=== PATIENT | male | born 1945 | race African-American/Black ===

== ENCOUNTER 2016-07-12 11:20 | Emergency (ER) | payer OTHER ==
[2016-07-12 11:29] VITALS: PULSE 96; BMI 31.8
[2016-07-12] MEDS ORDERED: predniSONE 20 MG TABLET (UD) PO ONE ×2 (11:46→13:48)
--- NOTE | 2016-07-12 11:54 | PDOC ---
History of Present Illness - General Chief Complaint: Shortness of Breath Stated Complaint: SOB Time Seen by Provider: 07/12/16 11:40 History Source: Patient Exam Limitations: No Limitations - History of Present Illness Initial Comments: CHIEF COMPLAINT: 70 y/o afebrile male with PMH HTN, CHF, COPD, DM c/o SOB this morning. HISTORY OF PRESENT ILLNESS: The patient states he woke up this morning and couldn't breath. He states this has happened before and is usually a COPD exacerbation. He has a mostly dry cough. He denies f/c, n/v/d, CP, abd pain, back pain, hematuria, dysuria, lower extremity swelling. He is on home oxygen. Vital signs on arrival are notable for O2 sat of 95% on RA REVIEW OF SYSTEMS: GENERAL/CONSTITUTIONAL: No fever/chills. No weakness. No weight change. HEAD, EYES, EARS, NOSE AND THROAT: No change in vision. No ear pain or discharge. No sore throat. CARDIOVASCULAR: +SOB. No chest pain. RESPIRATORY: +cough. No wheezing, or hemoptysis. GASTROINTESTINAL: No abd pain, nausea, vomiting, diarrhea. GENITOURINARY: No dysuria, frequency, or change in urination. MUSCULOSKELETAL: No joint or muscle swelling or pain. No neck or back pain. SKIN: No rash or easy bruising. NEUROLOGIC: No headache, vertigo, loss of consciousness, or loss of sensation. PHYSICAL EXAM: GENERAL: The patient is awake, alert, and fully oriented, in no acute distress. He is well appearing, ambulatory and can speak in full sentences. He has a dry cough worsened with deep inspiration. HEAD: Normal with no signs of trauma. ENT: Pupils equal, round and reactive to light, extraocular movements intact, sclera anicteric, conjunctiva clear. Neck supple. LUNGS: Diffuse expiratory wheezing. Normal excursion. No respiratory distress or use of accessory muscles. CV: RRR, S1/S2, no MRG. Cap refill < 2 sec. ABDOMEN: Soft, non-distended, non-tender even to deep palpation, no hepatomegaly or splenomegaly, no masses. EXTREMITIES: Normal range of motion, no edema. NEUROLOGICAL: Normal speech, normal gait. CN II-XII grossly intact. PSYCH: Normal mood, normal affect. SKIN: Warm, dry, normal turgor, no rashes or lesions noted. Past History - Past Medical History Allergies/Adverse Reactions: Allergies Allergy/AdvReac Type Severity Reaction Status Date / Time ibuprofen [From Advil] Allergy Unknown Vomiting Verified 07/12/16 11:25 Home Medications: Ambulatory Orders Multivitamin/Iron/Folic Acid [Centrum Complete Multivit Tab] 1 each PO DAILY 12/26 Furosemide [Lasix -] 40 mg PO DAILY #0 tablet 04/18/13 Montelukast Na [Singulair -] 10 mg PO HS #0 tablet 04/18/13 Aspirin [ASA -] 81 mg PO DAILY #0 tab.chew 07/31/14 Fluticasone Prop 0.05% Nasal [Flonase -] 1 - 2 spray NS BID 12/24/15 Albuterol Sulfate Inhaler - [Ventolin HFA Inhaler -] 1 - 2 inh PO Q4H PRN #1 inhaler 01/11/16 Albuterol 0.083% Nebulizer Jacki [Ventolin 0.083% Nebulizer Soln -] 1 neb NEB Q6H #30 vial 02/27/16 Aclidinium [place] [Tudorza -] 1 puff IH BID inhaler 03/18/16 Budesonide/Formeterol Fumarate [SYMBICORT 80/4.5mcg -] 2 puff IH BID inhaler Cefuroxime Axetil [Ceftin -] 500 mg PO BID tablet 03/18/16 Heparin - 5,000 unit SQ BID vial 03/18/16 Insulin Sliding Scale [Novolog Vial Sliding Scale -] 1 vial SQ ACHS units 03/18 Lisinopril [Prinivil] 2.5 mg PO DAILY tablet 03/18/16 Prednisone [Deltasone -] 20 mg PO BID tablet 03/19/16 Prednisone [Deltasone -] 40 mg PO DAILY #8 tablet 07/12/16 Anemia: No Asthma: Yes Cardiac Disorders: Yes (CHF) CVA: No COPD: Yes CHF: Yes Dementia: No Diabetes: Yes GI Disorders: No Disorders: Yes (ENLARGED PROSTATE) HTN: Yes Hypercholesterolemia: No Liver Disease: No Seizures: No Thyroid Disease: No - Surgical History Abdominal Surgery: No Appendectomy: No Cardiac Surgery: No Cholecystectomy: No - Immunization History Immunization Up to Date: Yes - Psycho/Social/Smoking Cessation Hx Anxiety: No Suicidal Ideation: No Smoking Status: No Smoking History: Former smoker Have you smoked in the past 12 months: No Number of Cigarettes Smoked Daily: 0 If you are a former smoker, when did you quit?: 2001 Information on smoking cessation initiated: No 'Breaking Loose' booklet given: 01/08/12 Hx Alcohol Use: No Drug/Substance Use Hx: No Substance Use Type: None Hx Substance Use Treatment: No Respiratory Specific PMHX - Complaint Specific PMHX Bronchitis: Yes Pneumonia: Yes *Physical Exam - Vital Signs Last Vital Signs Temp Pulse Resp BP Pulse Ox 97.6 F 96 H 18 145/90 95 07/12/16 11:26 07/12/16 11:26 07/12/16 11:26 07/12/16 11:26 07/12/16 11:26 Medical Decision Making - Medical Decision Making A/P: 70 y/o male with COPD exacerbation. Plan is as follows: 1. Duoneb x 3 2. Prednisone 3. CXR CXR IMPRESSION: No acute abnormality is seen. The patient states he feels much better. Repeat lung exam reveals much improved with only slight expiratory wheezing on the left side. Vital signs are improved. The patient does have a nebulizer at home which he states he sometimes uses 3 times per day. I suggested he use it every 4 hours. Will d/c to home with rx for prednisone and suggested he f/u with his [employer] Consultant as soon as possible. Instructed him to return to the ER with any worsening or concerning symptoms. The patient verbalizes understanding of all instructions, has no further questions and is awaiting discharge. *DC/Admit/Observation/Transfer Diagnosis at time of Disposition: COPD exacerbation - Discharge Dispostion Disposition: HOME Condition at time of disposition: Improved - Referrals Referrals: David Gaytan MD [Primary Care Provider] - Call tomorrow - Patient Instructions Printed Discharge Instructions: DI for Chronic Obstructive Pulmonary Disease Additional Instructions: Discharge Instructions: -Use your albuterol nebulizer once every 4 hours until symptoms improve. -Take Prescription prednisone as prescribed -Follow up with Dr. Gaytan and your [employer] Consultant this week -Return to the ER with any worsening or concerning symptoms
[2016-07-12] MEDS ORDERED: predniSONE 20 MG TABLET (UD) ONE ×2 (12:04→13:45)
[2016-07-12] MEDS ORDERED: ALBUTEROL SO4 2.5/IPRATROPIUM 0.5 INH SOL 3 ML VIAL.NEB. NEB ONE (12:04)
[2016-07-12] MEDS: ALBUTEROL SO4 2.5/IPRATROPIUM 0.5 INH SOL 3 ML VIAL.NEB. NEB SCH (12:12)
[2016-07-12 13:49] VITALS: BP 133/77; TEMP 98.3
== END 2016-07-12 13:52 | disposition home or self-care (01) ==
LOC: JER 11:20
PROC: 3E0F7GC Introduction of Other Therapeutic Substance into Respiratory Tract, Via Natural or Artificial Opening (ICD-10-PCS; principal; 2016-07-12)
DX: J44.1 Chronic obstructive pulmonary disease with (acute) exacerbation (principal); J45.909 Unspecified asthma, uncomplicated; I50.9 Heart failure, unspecified; I10 Essential (primary) hypertension; E11.9 Type 2 diabetes mellitus without complications; Z79.4 Long term (current) use of insulin; N40.0 Benign prostatic hyperplasia without lower urinary tract symptoms
CPT/HCPCS: 71020-TC; 94640; 99283-25

== ENCOUNTER 2016-07-24 12:46 | Emergency (ER) | payer OTHER ==
[2016-07-24 13:01] VITALS: BMI 31.3
[2016-07-24] MEDS ORDERED: ALBUTEROL SO4 2.5/IPRATROPIUM 0.5 INH SOL 3 ML VIAL.NEB. NEB ONE (13:31)
--- NOTE | 2016-07-24 13:38 | PDOC ---
History of Present Illness - History of Present Illness Initial Comments: 07/24/16 13:46 The patient is a 70 year old male with significant history of hypertension, DM, CHF, and asthma/COPD (admitted to the hospital with BIAPAP, never intubated) who presents to the ED complaining of 2 days of progressively worsening shortness of breath and productive cough with white sputum. He states he had been using his Albuterol pump at home without noticeable relief, prompting him to come to the ED for further evaluation. The patient was seen in the ED for a COPD exacerbation 2 weeks ago and was started on a Prednisone taper. He denies any fever or chills. He denies chest pain or palpitations. He denies nausea, vomiting, or diaphoresis. <Mary Castro - Last Filed: 07/24/16 16:27> - General History Source: Patient, Old Records Exam Limitations: No Limitations <Jacquelyn Sue - Last Filed: 07/24/16 16:47> - General Chief Complaint: Shortness of Breath Stated Complaint: SOB Time Seen by Provider: 07/24/16 13:11 Past History <Mary Castro - Last Filed: 07/24/16 16:27> - Past Medical History Anemia: No Asthma: Yes Cardiac Disorders: Yes (CHF) CVA: No COPD: Yes CHF: Yes Dementia: No Diabetes: Yes GI Disorders: No Disorders: Yes (ENLARGED PROSTATE) HTN: Yes Hypercholesterolemia: No Liver Disease: No Seizures: No Thyroid Disease: No - Surgical History Abdominal Surgery: No Appendectomy: No Cardiac Surgery: No Cholecystectomy: No - Immunization History Immunization Up to Date: Yes - Psycho/Social/Smoking Cessation Hx Anxiety: No Suicidal Ideation: No Smoking Status: No Smoking History: Former smoker Have you smoked in the past 12 months: No Number of Cigarettes Smoked Daily: 0 If you are a former smoker, when did you quit?: 2001 Information on smoking cessation initiated: No 'Breaking Loose' booklet given: 01/08/12 Hx Alcohol Use: No Drug/Substance Use Hx: No Substance Use Type: None Hx Substance Use Treatment: No <Jacquelyn Sue - Last Filed: 07/24/16 16:47> - Past Medical History Allergies/Adverse Reactions: Allergies Allergy/AdvReac Type Severity Reaction Status Date / Time ibuprofen [From Advil] Allergy Unknown Vomiting Verified 07/12/16 11:25 Home Medications: Ambulatory Orders Multivitamin/Iron/Folic Acid [Centrum Complete Multivit Tab] 1 each PO DAILY 12/26 Furosemide [Lasix -] 40 mg PO DAILY #0 tablet 04/18/13 Montelukast Na [Singulair -] 10 mg PO HS #0 tablet 04/18/13 Aspirin [ASA -] 81 mg PO DAILY #0 tab.chew 07/31/14 Fluticasone Prop 0.05% Nasal [Flonase -] 1 - 2 spray NS BID 12/24/15 Albuterol Sulfate Inhaler - [Ventolin HFA Inhaler -] 1 - 2 inh PO Q4H PRN #1 inhaler 01/11/16 Albuterol 0.083% Nebulizer Jacki [Ventolin 0.083% Nebulizer Soln -] 1 neb NEB Q6H #30 vial 02/27/16 Aclidinium [place] [Tudorza -] 1 puff IH BID inhaler 03/18/16 Budesonide/Formeterol Fumarate [SYMBICORT 80/4.5mcg -] 2 puff IH BID inhaler Lisinopril [Prinivil] 2.5 mg PO DAILY tablet 03/18/16 Albuterol 0.083% Nebulizer Jacki [Ventolin 0.083% Nebulizer Soln -] 1 neb NEB Q4H PRN #30 vial 07/24/16 Prednisone [Deltasone -] 40 mg PO UTDICT #8 tablet 07/24/16 Review of Systems - Review of Systems Able to Perform ROS?: Yes Comments:: 07/24/16 13:52 GENERAL/CONSTITUTIONAL: No fever or chills. No weakness. HEAD, EYES, EARS, NOSE AND THROAT: No change in vision. No ear pain or discharge. No sore throat. CARDIOVASCULAR: No chest pain, palpitations, or lightheadedness. RESPIRATORY: +Shortness of breath, productive cough with yellow sputum. No cough , wheezing, or hemoptysis. GASTROINTESTINAL: No nausea, vomiting, diarrhea or constipation. GENITOURINARY: No dysuria, frequency, or change in urination. MUSCULOSKELETAL: No joint or muscle swelling or pain. No neck or back pain. SKIN: No rash NEUROLOGIC: No headache, vertigo, loss of consciousness, or change in strength/ sensation. ENDOCRINE: No increased thirst. No abnormal weight change. HEMATOLOGIC/LYMPHATIC: No anemia, easy bleeding, or history of blood clots. ALLERGIC/IMMUNOLOGIC: No hives or skin allergy. <Mary Castro - Last Filed: 07/24/16 16:27> *Physical Exam - Vital Signs Last Vital Signs Temp Pulse Resp BP Pulse Ox 98.3 F 63 20 127/90 93 L 07/24/16 12:57 07/24/16 12:57 07/24/16 12:57 07/24/16 12:57 07/24/16 12:57 - Physical Exam Comments: 07/24/16 13:53 GENERAL: Awake, alert, and fully oriented, in no acute distress HEAD: No signs of trauma EYES: PERRLA, EOMI, sclera anicteric, conjunctiva clear ENT: Auricles normal inspection, hearing grossly normal, nares patent, oropharynx clear without exudates. Moist mucosa NECK: Normal ROM, supple, no lymphadenopathy, JVD, or masses LUNGS: Diffuse bilateral expiratory wheezes with fair entry. HEART: Regular rate and rhythm, normal S1 and S2, no murmurs, rubs or gallops ABDOMEN: Soft, nontender, normoactive bowel sounds. No guarding, no rebound. No masses EXTREMITIES: 1+ bipedal edema. Normal range of motion. No clubbing or cyanosis. No cords, erythema, or tenderness NEUROLOGICAL: Cranial nerves II through XII grossly intact. Normal speech, normal gait SKIN: Warm, Dry, normal turgor, no rashes or lesions noted. <Mary Castro - Last Filed: 07/24/16 16:27> - Vital Signs Last Vital Signs Temp Pulse Resp BP Pulse Ox 98.3 F 63 20 127/90 93 L 07/24/16 12:57 07/24/16 12:57 07/24/16 12:57 07/24/16 12:57 07/24/16 12:57 <Jacquelyn Sue - Last Filed: 07/24/16 16:47> ED Treatment Course - LABORATORY CBC & Chemistry Diagram: 07/24/16 13:53 07/24/16 13:53 <Mary Castro - Last Filed: 07/24/16 16:27> - LABORATORY CBC & Chemistry Diagram: 07/24/16 13:53 07/24/16 13:53 <Jacquelyn Sue - Last Filed: 07/24/16 16:47> Medical Decision Making - Medical Decision Making 07/24/16 14:22 70-year-old male with history of hypertension, diabetes, asthma/COPD who presents to the emergency department with 2 day history of shortness of breath unrelieved with his albuterol MDI; he also has a cough productive with yellow sputum. Differential diagnosis includes but is not limited to: Pneumonia, COPD exacerbation, influenza, bronchitis, CHF exacerbation, anemia, toxic/metabolic derangement. Plan: 1. EKG 2. Chest x-ray 3. Labs 4. Influenza PCR 5. DuoNeb treatments 6. Steroids 7. Observe and reevaluate 07/24/16 16:44 Addendum: The patient received albuterol neb tx and Prednisone with improvement of Sx and wheezing. At the time of discharge he was re-evaluated and his oxygen saturation was 100% on RA and he had scant wheezes at the bilateral bases. His labs were reviewed and are noted in the EMR. Influenza PCR was negative. EKG and CXR were negative. Will discharge home with Rx for prednisone 40mg daily x 4 days and refill for albuterol neb solution. I have instructed the patient to follow-up with his PCP within 3-5 days and to return to the ED if his Sx persist, worsen or new Sx arise. <Jacquelyn Sue - Last Filed: 07/24/16 16:47> *DC/Admit/Observation/Transfer - Attestations Scribe Attestion: 07/24/16 14:04 Documentation prepared by Mary Castro, acting as medical chemist for Jacquelyn Sue MD. <Mary Castro - Last Filed: 07/24/16 16:27> - Discharge Dispostion Admit: No - Attestations Physician Attestion: 07/24/16 14:23 I, Dr. Jacquelyn Sue, attest that the scribes documentation that appears above has been prepared under my direction and personally reviewed by me in its entirety. I confirmed that the note above accurately reflects all work, treatment, procedures, and medical decision-making performed by me. <Jacquelyn Sue - Last Filed: 07/24/16 16:47> Diagnosis at time of Disposition: Shortness of breath, COPD exacerbation - Discharge Dispostion Disposition: HOME Condition at time of disposition: Stable - Prescriptions Prescriptions: Prednisone [Deltasone -] 40 mg PO UTDICT #8 tablet Albuterol 0.083% Nebulizer Jacki [Ventolin 0.083% Nebulizer Soln -] 1 neb NEB Q4H PRN #30 vial PRN Reason: Asthma - Referrals Referrals: David Gaytan MD [Primary Care Provider] - - Patient Instructions Printed Discharge Instructions: DI for Asthma -- Adult Additional Instructions: You're being discharged with prednisone 40 mg daily for the next 4 days. You received 1 dose in the emergency department today. Take the albuterol nebulizer solution every 2-4 hours as needed for shortness of breath. Your influenza test was negative. Please follow-up with her primary care physician within the next 3 -5 days and return to the emergency department if your symptoms persist, worsen , or new symptoms arise.
[2016-07-24] MEDS ORDERED: IPRATROPIUM BR 0.02% 0.5 MG/2.5 ML VIAL.NEB. NEB ONE (13:49)
[2016-07-24] MEDS ORDERED: predniSONE 20 MG TABLET (UD) PO ONE (13:49)
[2016-07-24] MEDS: ALBUTEROL SO4 0.083% IH SOL 2.5 MG/3 ML VIAL.NEB. NEB SCH ×4 (13:51→15:39)
[2016-07-24] MEDS ORDERED: predniSONE 20 MG TABLET (UD) ONE (13:52)
[2016-07-24 14:11] LABS: EOSINOPHIL 11.9 % (0-4.5); MCH 29.1 pg (25.7-33.7); MCHC 32.9 g/dl (32.0-35.9); MEAN CELL VOLUME 88.2 fl (80-96); MEAN PLT VOLUME 8.4 fl (7.5-11.1); NEUTROPHILS 61.5 % (42.8-82.8); PLATELET COUNT 209 K/MM3 (134-434); RDW 14.2 % (11.9-15.9); WHITE BLOOD COUNT 10.8 K/mm3 (4.0-10.0)
[2016-07-24 14:41] LABS: ALBUMIN 3.3 g/dl (3.4-5.0); ANION GAP 10 (8-16); BILIRUBIN,TOTAL 0.6 mg/dL (0.2-1.0); CALCIUM 8.5 mg/dL (8.5-10.1); CO2 29 mmol/L (21-32); CREATININE 0.9 mg/dL (0.7-1.3); GLUCOSE,RANDOM 111 mg/dL (74-106); SGOT/AST 20 U/L (15-37); SGPT/ALT 27 U/L (12-78); TOT PROT 6.5 g/dl (6.4-8.2)
[2016-07-24 14:43] LABS: ALK PHOS 61 U/L (45-117); TROPONIN I < 0.02 ng/ml (0.00-0.05)
--- NOTE | 2016-07-24 14:52 | EKG ---
Test Reason : Blood Pressure : / mmHG Vent. Rate : 086 BPM Atrial Rate : 086 BPM P-R Int : 156 ms QRS Dur : 104 ms QT Int : 360 ms P-R-T Axes : 047 006 037 degrees QTc Int : 430 ms NORMAL SINUS RHYTHM WITH SINUS ARRHYTHMIA NONSPECIFIC T WAVE ABNORMALITY ABNORMAL ECG WHEN COMPARED WITH ECG OF 13-MAR-2016 22:37, NO SIGNIFICANT CHANGE WAS FOUND Confirmed by SAM IZAGUIRRE MD ([id number]) on 07/24/2016 2:52:16 PM Referred By: Confirmed By:SAM IZAGUIRRE MD
[2016-07-24] MEDS ORDERED: ALBUTEROL SO4 0.083% IH SOL 2.5 MG/3 ML VIAL.NEB. NEB ONE (15:36)
[2016-07-24 16:44] VITALS: BP 131/75; PULSE 89; TEMP 98.7
== END 2016-07-24 16:48 | disposition home or self-care (01) ==
LOC: JER 12:46
PROC: 3E0F7GC Introduction of Other Therapeutic Substance into Respiratory Tract, Via Natural or Artificial Opening (ICD-10-PCS; principal; 2016-07-24)
PROC: 3E0F7GC Introduction of Other Therapeutic Substance into Respiratory Tract, Via Natural or Artificial Opening (ICD-10-PCS; 2016-07-24)
DX: J44.1 Chronic obstructive pulmonary disease with (acute) exacerbation (principal); I50.9 Heart failure, unspecified; I10 Essential (primary) hypertension; E11.9 Type 2 diabetes mellitus without complications; J45.909 Unspecified asthma, uncomplicated; N40.0 Benign prostatic hyperplasia without lower urinary tract symptoms
CPT/HCPCS: 36415; 71020-TC; 80053; 82550; 82553; 83880; 84484; 85025; 87804; 93005; 93010; 94640; 99283-25

== ENCOUNTER 2016-10-01 15:14 | Inpatient (IN) | payer OTHER ==
--- NOTE | 2016-10-01 16:39 | PDOC ---
History of Present Illness - General History Source: Patient, Old Records Exam Limitations: No Limitations - History of Present Illness Initial Comments: 10/01/16 17:43 The patient is a 71 year old male, with a significant past medical history of HTN, diabetes, enlarged prostate, CHF, and COPD, who presents to the emergency department with shortness of breath and cough onset this morning. He states that his shortness of breath has progressively got worse throughout the day and decided to come to the ED for further evaluation. He notes that his cough is mild, and productive of white sputum. He states that last week he was prescribed 3 days of steroids, which he believes was not enough. The patient denies chest pain, headache and dizziness. Denies fever, chills, nausea, vomit, diarrhea and constipation. Allergies: Ibuprofen Past surgical history: None reported Social history: Former smoker. No alcohol or drug use reported PMD - Dr. David Gaytan Pulmonary - Dr. Diaz <Tc Khan - Last Filed: 10/01/16 18:22> <Shakir Galan - Last Filed: 10/01/16 19:25> - General Chief Complaint: Shortness of Breath Stated Complaint: JAW PAIN/COPD Time Seen by Provider: 10/01/16 16:37 Past History <Tc Khan - Last Filed: 10/01/16 18:22> - Past Medical History Anemia: No Asthma: Yes Cardiac Disorders: Yes (CHF) CVA: No COPD: Yes CHF: Yes Dementia: No Diabetes: Yes GI Disorders: No Disorders: Yes (ENLARGED PROSTATE) HTN: Yes Hypercholesterolemia: No Liver Disease: No Seizures: No Thyroid Disease: No - Surgical History Abdominal Surgery: No Appendectomy: No Cardiac Surgery: No Cholecystectomy: No - Immunization History Immunization Up to Date: Yes - Psycho/Social/Smoking Cessation Hx Anxiety: No Suicidal Ideation: No Smoking Status: No Smoking History: Former smoker Have you smoked in the past 12 months: No Number of Cigarettes Smoked Daily: 0 If you are a former smoker, when did you quit?: 2001 Information on smoking cessation initiated: No 'Breaking Loose' booklet given: 01/08/12 Hx Alcohol Use: No Drug/Substance Use Hx: No Substance Use Type: None Hx Substance Use Treatment: No <Shakir Galan - Last Filed: 10/01/16 19:25> - Past Medical History Allergies/Adverse Reactions: Allergies Allergy/AdvReac Type Severity Reaction Status Date / Time ibuprofen [From Advil] Allergy Unknown Vomiting Verified 10/01/16 15:38 Home Medications: Ambulatory Orders Multivitamin/Iron/Folic Acid [Centrum Complete Multivit Tab] 1 each PO DAILY 12/26 Furosemide [Lasix -] 40 mg PO DAILY #0 tablet 04/18/13 Montelukast Na [Singulair -] 10 mg PO HS #0 tablet 04/18/13 Aspirin [ASA -] 81 mg PO DAILY #0 tab.chew 07/31/14 Fluticasone Prop 0.05% Nasal [Flonase -] 1 - 2 spray NS BID 12/24/15 Albuterol Sulfate Inhaler - [Ventolin HFA Inhaler -] 1 - 2 inh PO Q4H PRN #1 inhaler 01/11/16 Aclidinium [place] [Tudorza -] 1 puff IH BID inhaler 03/18/16 Budesonide/Formeterol Fumarate [SYMBICORT 80/4.5mcg -] 2 puff IH BID inhaler Lisinopril [Prinivil] 2.5 mg PO DAILY tablet 03/18/16 Albuterol 0.083% Nebulizer Jacki [Ventolin 0.083% Nebulizer Soln -] 1 neb NEB Q4H PRN #30 vial 07/24/16 Prednisone [Deltasone -] 40 mg PO UTDICT #8 tablet 07/24/16 Respiratory Specific PMHX - Complaint Specific PMHX Bronchitis: Yes Pneumonia: Yes <Shakir Galan - Last Filed: 10/01/16 19:25> Review of Systems - Review of Systems Able to Perform ROS?: Yes Comments:: 10/01/16 17:44 CONSTITUTIONAL: No fever, no chills, no fatigue EYES: No visual changes ENT: No ear pain, no sore throat CARDIOVASCULAR: No chest pain, no palpitations RESPIRATORY: (+) Shortness of breath and cough GI: No abdominal pain, no nausea, no vomiting, no constipation, no diarrhea GENITOURINARY: No dysuria, no frequency, no hematuria MUSKULOSKELETAL: No backpain, no joint pain, no myalgias SKIN: No rash NEURO: No headache <Lombert,Tc Cindy - Last Filed: 10/01/16 18:22> *Physical Exam - Vital Signs Last Vital Signs Temp Pulse Resp BP Pulse Ox 99.4 F 94 H 20 153/78 95 10/01/16 15:34 10/01/16 15:34 10/01/16 15:34 10/01/16 15:34 10/01/16 15:34 - Physical Exam Comments: 10/01/16 17:44 CONSTITUTIONAL: Well-appearing; well-nourished; in no apparent distress HEAD: Normocephalic; atraumatic EYES: PERRL; EOM intact ENMT: External appears normal; normal oropharynx. (+) Reproducible tenderness of the right TMJ. Intraorally poor dentitian, missing upper and lower molars, without gingival tenderness or induration. NECK: Supple; non-tender; no cervical lymphadenopathy CARD: Normal S1, S2; no murmurs, rubs, or gallops RESP: (+) Dyspneic, expiratory wheezing and inspiratory wheezing. Normal chest excursion with respiration. ABD: Soft, non-distended; non-tender; no palpable organomegaly, no palpable hernias EXT: (+) 1+ pitting edema bilaterally. Normal ROM in all four extremities; non- tender to palpation; distal pulses intact SKIN: Warm, dry, no rash NEURO: No focal neurological deficiencies. <Negin Khanan Cindy - Last Filed: 10/01/16 18:22> - Vital Signs Last Vital Signs Temp Pulse Resp BP Pulse Ox 99.4 F 94 H 20 153/78 95 10/01/16 15:34 10/01/16 15:34 10/01/16 15:34 10/01/16 15:34 10/01/16 15:34 <Shakir Galan - Last Filed: 10/01/16 19:25> ED Treatment Course - LABORATORY CBC & Chemistry Diagram: 10/01/16 17:22 10/01/16 17:22 - RADIOLOGY Radiograph Interpretation: 10/01/16 17:44 Chest X-Ray Reviewed by: Dr. Burton Silva Impression: Cardiomegaly. Chronic lung disease and possible mild congestion. <Tc Khan - Last Filed: 10/01/16 18:22> - LABORATORY CBC & Chemistry Diagram: 10/01/16 17:22 10/01/16 17:22 <Shakir Galan - Last Filed: 10/01/16 19:25> Medical Decision Making - Medical Decision Making 10/01/16 18:15 Patient is a 71-year-old male with history of COPD, CHF, diabetes who presents with worsening shortness of breath and dyspnea with minimal exertion for the past 12-24 hours. In the ER, patient is awake and alert, mildly dyspneic at rest , speaking in short sentences, afebrile, mildly hypertensive, with oxygen saturation of 95-96% on room air. Physical exam reveals decreased air entry bilaterally, and expiratory wheezing in all lung velazquez, and minimal lower extremity edema. Patient also reports unintentional weight gain of 6 pounds. Differential diagnoses includes acute COPD exacerbation versus acute CHF exacerbation versus combination of both, versus pneumonia. We will administer continuous Combivent therapy, we'll administer Solu-Medrol, we'll also administer IV Lasix. We'll obtain CBC/CMP/cardiac profile. EKG shows no evidence of acute ischemia or right sided heart strain. We'll obtain chest x- ray. Patient also complains of atraumatic right TMJ pain which appears reproducible on examination. There is no evidence of dental infection at this time. I do not suspect angina equivalents at this time. We will administer acetaminophen for pain control. Will reassess. Likely admission. 10/01/16 18:43 Patient reassessed. Patient is resting more comfortably but is still mildly dyspneic. After receiving 3 Combivent nebulizer treatments and Solu-Medrol, the air entry has increased bilaterally, and expiratory wheezing has decreased bilaterally, and audible crackles and no appreciated the bases bilaterally. Chest x-ray reveals cardiomegaly and increased interstitial markings as well as cephalization but no evidence of infiltrate. CBC reveals mild leukocytosis with a normal differential. Will continue with albuterol treatments when necessary, Atrovent every 4 hours, and will admit. 10/01/16 19:22 Patient diuresing and has improved clinically. Oxygen saturation is noted to be 94% on room air. Physical exam reveals increased air entry bilaterally and persistent bibasilar crackles. Will place on 2 L via nasal cannula. Will admit to telemetry. Case discussed with Dr. Gaytan who agrees with plan of care. 10/01/16 19:24 Patient is at high risk of flash pulmonary edema and therefore will require close observation on telemetry. <Shakir Galan - Last Filed: 10/01/16 19:25> *DC/Admit/Observation/Transfer - Attestations Scribe Attestion: 10/01/16 17:44 Documentation prepared by Tc Khan, acting as medical assisting program director for Shakir Galan MD <Tc Khan - Last Filed: 10/01/16 18:22> - Discharge Dispostion Admit: Yes - Attestations Physician Attestion: 10/01/16 18:15 The documentation was prepared by the scribe under my direct supervision. I have reviewed the documentation which correctly represents the findings, medical decision-making and critical action taken by me. <Shakir Galan - Last Filed: 10/01/16 19:25> Diagnosis at time of Disposition: Acute exacerbation of chronic obstructive pulmonary disease (COPD), Temporomandibular joint disorder Acute on chronic congestive heart failure Qualifiers: Congestive heart failure type: unspecified congestive heart failure type Qualified Code(s): I50.9 - Heart failure, unspecified - Discharge Dispostion Condition at time of disposition: Fair - Referrals Referrals: David Gaytan MD [Primary Care Provider] -
[2016-10-01] MEDS ORDERED: ALBUTEROL SO4 2.5/IPRATROPIUM 0.5 INH SOL 3 ML VIAL.NEB. NEB ONE (16:51)
[2016-10-01] MEDS ORDERED: methylPREDNISolone NA SUCC 125 MG/2 ML VIAL IVPB ONE (16:51)
[2016-10-01] MEDS ORDERED: methylPREDNISolone NA SUCC 125 MG/2 ML VIAL ONE (16:57)
[2016-10-01] MEDS ORDERED: ACETAMINOPHEN 500 MG TABLET (FP) PO ONE (17:50)
[2016-10-01 17:53] LABS: BASOPHIL 0.5 % (0-2.0); EOSINOPHIL 11.4 % (0-4.5); MCH 27.7 pg (25.7-33.7); MCHC 32.5 g/dl (32.0-35.9); MEAN CELL VOLUME 85.3 fl (80-96); MEAN PLT VOLUME 8.7 fl (7.5-11.1); NEUTROPHILS 64.4 % (42.8-82.8); PLATELET COUNT 279 K/MM3 (134-434); RDW 13.8 % (11.9-15.9); WHITE BLOOD COUNT 13.3 K/mm3 (4.0-10.0)
[2016-10-01] MEDS ORDERED: FUROSEMIDE 40 MG/4 ML INJECTABLE VIAL IVPUSH ONE (17:56)
[2016-10-01 18:18] LABS: ALBUMIN 3.5 g/dl (3.4-5.0); ANION GAP 13 (8-16); CALCIUM 9.1 mg/dL (8.5-10.1); CO2 25 mmol/L (21-32); COCKROFT - GAULT 115.37; CREATININE 0.9 mg/dL (0.7-1.3); GLUCOSE,RANDOM 115 mg/dL (74-106); SGOT/AST 13 U/L (15-37); SGPT/ALT 28 U/L (12-78)
[2016-10-01 18:21] LABS: ALK PHOS 79 U/L (45-117); TROPONIN I < 0.02 ng/ml (0.00-0.05)
[2016-10-01] MEDS ORDERED: FUROSEMIDE 40 MG/4 ML INJECTABLE VIAL ONE (18:25)
[2016-10-01] MEDS ORDERED: ACETAMINOPHEN 325 MG TABLET (FP) ONE (18:25)
[2016-10-01 18:42] LABS: INR 1.23 (0.82-1.09); PROTHROMBIN TIME (PATIENT) 13.6 SEC (9.98-11.88)
[2016-10-01] MEDS ORDERED: ALBUTEROL SO4 0.083% IH SOL 2.5 MG/3 ML VIAL.NEB. NEB ONE (18:43)
[2016-10-01] MEDS ORDERED: SODIUM CHLORIDE NASAL SPRAY 44 ML BOTTLE NS PRN (19:35)
[2016-10-01] MEDS: methylPREDNISolone NA SUCC 40 MG/1 ML VIAL IVPB SCH (20:47)
[2016-10-01] MEDS: FLUTICASONE PROP 0.05% 16 GM NASAL SPRAY NS SCH (21:33)
[2016-10-01] MEDS: INSULIN SLIDING SCALE (NOVOLOG) 1 VIAL SQ SCH (23:00)
[2016-10-01] MEDS: MONTELUKAST NA 10 MG TABLET PO SCH (23:42)
[2016-10-02] MEDS ORDERED: MONTELUKAST NA 10 MG TABLET ONE (00:13)
[2016-10-02 01:17] VITALS: BMI 31.8
[2016-10-02] MEDS: methylPREDNISolone NA SUCC 40 MG/1 ML VIAL IVPB SCH ×3 (02:33→17:46)
[2016-10-02] MEDS: INSULIN SLIDING SCALE (NOVOLOG) 1 VIAL SQ SCH ×4 (06:50→22:39)
[2016-10-02] MEDS ORDERED: PT OWN MED DRAWER 7, Y5N ONE ×3 (09:22→12:13)
[2016-10-02] MEDS: FLUTICASONE PROP 0.05% 16 GM NASAL SPRAY NS SCH (09:26)
[2016-10-02] MEDS: LISINOPRIL 5 MG TABLET (FP) PO SCH (09:38)
[2016-10-02] MEDS: ASPIRIN COATED 81 MG TABLET.EC PO SCH (09:38)
[2016-10-02] MEDS ORDERED: FUROSEMIDE 40 MG/4 ML INJECTABLE VIAL IVPUSH SCH (10:00)
--- NOTE | 2016-10-02 10:38 | PN ---
Progress Note (short form) - Note Progress Note: PULMONARY CONSULTATION DICTATED 10/02/16 IMP COPD EXACERBATION URI H/O CHF BPH DM HTN PLAN INHALED BRONCHODILATORS NASAL O2 SHORT COURSE OF STEROIDS F/U CHEST X-RAY DR MARROQUIN Problem List - Problems (1) Acute exacerbation of chronic obstructive pulmonary disease (COPD) Code(s): J44.1 - CHRONIC OBSTRUCTIVE PULMONARY DISEASE W (ACUTE) EXACERBATION (2) CHF (congestive heart failure) Code(s): I50.9 - HEART FAILURE, UNSPECIFIED (3) DM (diabetes mellitus) Code(s): E11.9 - TYPE 2 DIABETES MELLITUS WITHOUT COMPLICATIONS (4) Shortness of breath Code(s): R06.02 - SHORTNESS OF BREATH (5) HTN (hypertension) Code(s): I10 - ESSENTIAL (PRIMARY) HYPERTENSION
--- NOTE | 2016-10-02 11:03 | HP ---
Admitting History and Physical - Primary Care Physician PCP: David Gaytan - Admission Chief Complaint: DYSPNEA/SOB ACUTE ON CHRONIC COPD History of Present Illness: 71 Y/O MALE WITH HISTORY OF CHF,COPD,HTN,DM,OA HERE WITH DYSPNEA/SOB FOR 2 DAYS WORSE YESTERDAY CAME TO ED WITH RESP DISTRESS History Source: Patient - Past Medical History Cardiovascular: Yes: HTN Pulmonary: Yes: Asthma, COPD - Smoking History Smoking history: Former smoker Have you smoked in the past 12 months: No Aproximately how many cigarettes per day: 0 If you are a former smoker, when did you quit?: 2002 - Alcohol/Substance Use Hx Alcohol Use: No Home Medications - Allergies Allergies/Adverse Reactions: Allergies Allergy/AdvReac Type Severity Reaction Status Date / Time ibuprofen [From Advil] Allergy Unknown Vomiting Verified 10/01/16 15:38 - Home Medications Home Medications: Ambulatory Orders Multivitamin/Iron/Folic Acid [Centrum Complete Multivit Tab] 1 each PO DAILY 12/26 Furosemide [Lasix -] 40 mg PO DAILY #0 tablet 04/18/13 Montelukast Na [Singulair -] 10 mg PO HS #0 tablet 04/18/13 Aspirin [ASA -] 81 mg PO DAILY #0 tab.chew 07/31/14 Fluticasone Prop 0.05% Nasal [Flonase -] 1 - 2 spray NS BID 12/24/15 Albuterol Sulfate Inhaler - [Ventolin HFA Inhaler -] 1 - 2 inh PO Q4H PRN #1 inhaler 01/11/16 Aclidinium [place] [Tudorza -] 1 puff IH BID inhaler 03/18/16 Budesonide/Formeterol Fumarate [SYMBICORT 80/4.5mcg -] 2 puff IH BID inhaler Lisinopril [Prinivil] 2.5 mg PO DAILY tablet 03/18/16 Albuterol 0.083% Nebulizer Jacki [Ventolin 0.083% Nebulizer Soln -] 1 neb NEB Q4H PRN #30 vial 07/24/16 Prednisone [Deltasone -] 40 mg PO UTDICT #8 tablet 07/24/16 Review of Systems - Review of Systems Constitutional: reports: Loss of Appetite, Weakness Eyes: reports: No Symptoms HENT: reports: No Symptoms Neck: reports: No Symptoms Cardiovascular: reports: Edema, Palpitations, Shortness of Breath, Other Respiratory: reports: Cough, SOB, SOB on Exertion, Wheezing Gastrointestinal: reports: No Symptoms Genitourinary: reports: No Symptoms Musculoskeletal: reports: No Symptoms Integumentary: reports: No Symptoms Neurological: reports: No Symptoms Endocrine: reports: No Symptoms Hematology/Lymphatic: reports: No Symptoms Psychiatric: reports: No Symptoms Physical Examination Vital Signs: Vital Signs Temperature 97.9 F 10/02/16 05:59 Pulse Rate 94 H 10/02/16 05:59 Respiratory Rate 20 10/02/16 05:59 Blood Pressure 147/80 10/02/16 05:59 O2 Sat by Pulse Oximetry (%) 97 10/02/16 00:41 Constitutional: Yes: Moderate Distress Eyes: Yes: WNL HENT: Yes: WNL Neck: Yes: WNL Cardiovascular: Yes: WNL Respiratory: Yes: On Nasal O2, Poor Air Entry, SOB, SOB on Exertion, Tachypnea, Wheezes Gastrointestinal: Yes: WNL Renal/: Yes: WNL Musculoskeletal: Yes: Muscle Weakness Edema: Yes Edema: LLE: 1+, RLE: 1+ Peripheral Pulses WNL: Yes Integumentary: Yes: WNL Wound/Incision: Yes: Clean/Dry Neurological: Yes: WNL ...Motor Strength: WNL Psychiatric: Yes: WNL Imaging - Results Chest X-ray: Report Reviewed Problem List - Problems (1) Acute exacerbation of CHF (congestive heart failure) Code(s): I50.9 - HEART FAILURE, UNSPECIFIED Qualifiers: Congestive heart failure type: unspecified congestive heart failure type Qualified Code(s): I50.9 - Heart failure, unspecified (2) Acute exacerbation of chronic obstructive pulmonary disease (COPD) Code(s): J44.1 - CHRONIC OBSTRUCTIVE PULMONARY DISEASE W (ACUTE) EXACERBATION (3) HTN (hypertension) Code(s): I10 - ESSENTIAL (PRIMARY) HYPERTENSION Qualifiers: Hypertension type: unspecified secondary hypertension Qualified Code (s): I15.9 - Secondary hypertension, unspecified; I15 - Secondary hypertension (4) DM (diabetes mellitus) Code(s): E11.9 - TYPE 2 DIABETES MELLITUS WITHOUT COMPLICATIONS Qualifiers: Diabetes mellitus complication status: with ophthalmic complications Assessment/Plan NEBS 02 SUPPORT STEROIDS SSI ADA PULM AND CARDIO EVAL LASIX IV ECHO FOR CARDIAC FUNCTION DAILY WEIGHTS
--- NOTE | 2016-10-02 12:10 | EKG ---
Test Reason : Blood Pressure : / mmHG Vent. Rate : 084 BPM Atrial Rate : 084 BPM P-R Int : 148 ms QRS Dur : 122 ms QT Int : 386 ms P-R-T Axes : 065 017 062 degrees QTc Int : 456 ms NORMAL SINUS RHYTHM RIGHT BUNDLE BRANCH BLOCK ABNORMAL ECG WHEN COMPARED WITH ECG OF 24-JUL-2016 14:10, RIGHT BUNDLE BRANCH BLOCK IS NOW PRESENT Confirmed by MD NORRIS, KAIA ([id number]) on 10/02/2016 12:10:31 PM Referred By: Confirmed By:KAIA PISANO MD
--- NOTE | 2016-10-02 12:57 | CON.CARD ---
Consult Consult Specialty:: cardiology Referred by:: Lucila Reason for Consultation:: Dyspnea - History of Present Illness Chief Complaint: Dyspnea History of Present Illness: 71 year old male with a pmhx of copd, htn, dm, OA, and diastolic CHF who was admitted for dyspnea. Patient states that he has had some mild increase in dyspnea for last 2 days. No chest pain or palpitations. No pnd or orthopnea. No edema. - History Source History Provided By: Patient, Medical Record - Past Medical History Cardio/Vascular: Yes: HTN Pulmonary: Yes: Asthma, COPD - Alcohol/Substance Use Hx Alcohol Use: No - Smoking History Smoking history: Former smoker Have you smoked in the past 12 months: No Aproximately how many cigarettes per day: 0 If you are a former smoker, when did you quit?: 2001 Home Medications - Allergies Allergies/Adverse Reactions: Allergies Allergy/AdvReac Type Severity Reaction Status Date / Time ibuprofen [From Advil] Allergy Unknown Vomiting Verified 10/01/16 15:38 - Home Medications Home Medications: Ambulatory Orders Multivitamin/Iron/Folic Acid [Centrum Complete Multivit Tab] 1 each PO DAILY 12/26 Furosemide [Lasix -] 40 mg PO DAILY #0 tablet 04/18/13 Montelukast Na [Singulair -] 10 mg PO HS #0 tablet 04/18/13 Aspirin [ASA -] 81 mg PO DAILY #0 tab.chew 07/31/14 Fluticasone Prop 0.05% Nasal [Flonase -] 1 - 2 spray NS BID 12/24/15 Albuterol Sulfate Inhaler - [Ventolin HFA Inhaler -] 1 - 2 inh PO Q4H PRN #1 inhaler 01/11/16 Aclidinium [place] [Tudorza -] 1 puff IH BID inhaler 03/18/16 Budesonide/Formeterol Fumarate [SYMBICORT 80/4.5mcg -] 2 puff IH BID inhaler Lisinopril [Prinivil] 2.5 mg PO DAILY tablet 03/18/16 Albuterol 0.083% Nebulizer Jacki [Ventolin 0.083% Nebulizer Soln -] 1 neb NEB Q4H PRN #30 vial 07/24/16 Prednisone [Deltasone -] 40 mg PO UTDICT #8 tablet 07/24/16 Vital Signs: Vital Signs Temperature 98.2 F 10/02/16 10:00 Pulse Rate 95 H 10/02/16 10:00 Respiratory Rate 20 10/02/16 10:00 Blood Pressure 143/77 10/02/16 10:00 O2 Sat by Pulse Oximetry (%) 97 10/02/16 09:00 Constitutional: Yes: No Distress Neck: Yes: Supple Respiratory: Yes: CTA Bilaterally Gastrointestinal: Yes: Normal Bowel Sounds, Soft Cardiovascular: Yes: Regular Rate and Rhythm JVD: No Carotid Bruit: No Heart Sounds: Yes: S1, S2 Edema: (trace b/l foot) - Other Data Labs, Other Data: INR, PTT INR 1.23 (0.82-1.09) H 10/01/16 17:22 Echo: Report Reviewed Imaging - Results Chest X-ray: Report Reviewed EKG: Image Reviewed Problem List - Problems (1) Dyspnea Code(s): R06.00 - DYSPNEA, UNSPECIFIED Assessment/Plan 71 year old male with a pmhx of copd, htn, dm, OA, and diastolic CHF who was admitted for dyspnea. Patient states that he has had some mild increase in dyspnea for last 2 days. No chest pain or palpitations. No pnd or orthopnea. No edema. 1) Dyspnea -Does not appear to be significantly overloaded on exam. Minimal if any LE edema, NO jvd, lungs clear. BNP normal at 70 No acute ekg changes. EKG: sinus rhythm at 84bpm, nl axis, rbbb, nl st segments CXR read as copd and possible congestion -BP normal limits at this time. Started on low dose lisinopril given h/o dm. -Would stop IV lasix. Got a dose yesterday and this morning Check echocardiogram -Treat copd exacerbation as per pulmonary Patient with elevated ESR 75 and WBC 13. F/u with primary team whether any further work up needed.
--- NOTE | 2016-10-02 13:53 | CONS ---
DATE OF CONSULTATION: 10/02/2016 PULMONARY CONSULTATION REFERRING PHYSICIAN: David Gaytan MD HISTORY OF PRESENT ILLNESS: The patient is a 71-year-old black male with a past medical history of hypertension, diabetes, COPD, BPH, and CHF admitted to [facility] with complaint of increasing shortness of breath and cough. The patient states he was doing well until a few days prior to admission when he started developing a cough productive of clear sputum associated with shortness of breath and dyspnea on exertion. He denied complaint of chest pain, nausea, vomiting, or diaphoresis. Apparently last week he was prescribed 3 days of steroids which did not offer significant improvement. He presented to the emergency room with the above. In the ER he was treated a inhaled bronchodilators and steroids and transferred to the medical floor for further management. He denies any chest pain, palpitations, denies any recent travel. There is no history of hemoptysis, nausea, fever or chills. He denies any history of occupational exposure to chemical fumes. He has a history of tobacco use quitting in 2003. PAST MEDICAL HISTORY: Again includes COPD, hypertension, diabetes, BPH, CHF. SOCIAL HISTORY: History of tobacco use quit in 2003. 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 CURRENT MEDICATIONS: Include Solu-Medrol 40 q. 8 h, Prinivil, DuoNeb, Flonase, NovoLog, Singulair, Lasix and aspirin. REVIEW OF SYSTEMS: No orthopnea, no PND, current dyspnea on exertion, positive occasional cough, no chest pain, no palpitations, no abdominal pain, no lower extremity edema. PHYSICAL EXAMINATION: General: The patient is a well-developed, well-nourished male, awake, alert, in no acute respiratory distress. Vitals: The patient is currently afebrile. Blood pressure is 147/80, respiratory rate 20, O2 saturation 97% on 2 L. HEENT: Examination is normocephalic and atraumatic. Neck: Supple. Heart: Regular with normal S1, S2. Chest: Scattered wheezes. Abdomen: Soft, bowel sounds positive. Extremities: No cyanosis or edema. LABORATORY DATA: BUN is 11, creatinine 0.9. BNP is 770. WBC 13.3, hemoglobin 13.5, hematocrit 41.1, platelet count 279,000. INR is 1.23. Chest x-ray reveals no cardiomegaly, chronic changes bilaterally, possible mild congestion. IMPRESSION: 1. Chronic obstructive pulmonary disease with acute exacerbation, likely secondary to recent upper respiratory infection. 2. history of congestive heart failure. 3. Benign prostatic hypertrophy. 4. Diabetes. PLAN: Continue short course of of IV steroids, inhaled bronchodilators, supplemental O2, obtain followup chest x-ray. YEVGENIY MARROQUIN M.D. [id number]
--- NOTE | 2016-10-02 18:04 | CONSULT ---
Consult Consult Specialty:: Nephrology Reason for Consultation:: called to asses volume status - History of Present Illness Chief Complaint: shortness of breath and cough History of Present Illness: Pt is a 71 year old male with pmhx of HTN, DM, CHF and COPD who presents to the ER with shortness of breath. He also complains of cough. He says that the shortness of breath has been worsening. He denies palpitations. He complains of mild edema in his legs. I was called to asses him for diuretics. He denies dysuria or hematuria. He denies history of CKD. - History Source History Provided By: Patient - Past Medical History Cardio/Vascular: Yes: HTN Pulmonary: Yes: Asthma, COPD Endocrine: Yes: Diabetes Mellitus - Alcohol/Substance Use Hx Alcohol Use: No - Smoking History Smoking history: Former smoker Have you smoked in the past 12 months: No Aproximately how many cigarettes per day: 0 If you are a former smoker, when did you quit?: 2001 Home Medications - Allergies Allergies/Adverse Reactions: Allergies Allergy/AdvReac Type Severity Reaction Status Date / Time ibuprofen [From Advil] Allergy Unknown Vomiting Verified 10/01/16 15:38 - Home Medications Home Medications: Ambulatory Orders Multivitamin/Iron/Folic Acid [Centrum Complete Multivit Tab] 1 each PO DAILY 12/26 Furosemide [Lasix -] 40 mg PO DAILY #0 tablet 04/18/13 Montelukast Na [Singulair -] 10 mg PO HS #0 tablet 04/18/13 Aspirin [ASA -] 81 mg PO DAILY #0 tab.chew 07/31/14 Fluticasone Prop 0.05% Nasal [Flonase -] 1 - 2 spray NS BID 12/24/15 Albuterol Sulfate Inhaler - [Ventolin HFA Inhaler -] 1 - 2 inh PO Q4H PRN #1 inhaler 01/11/16 Aclidinium [place] [Tudorza -] 1 puff IH BID inhaler 03/18/16 Budesonide/Formeterol Fumarate [SYMBICORT 80/4.5mcg -] 2 puff IH BID inhaler Lisinopril [Prinivil] 2.5 mg PO DAILY tablet 03/18/16 Albuterol 0.083% Nebulizer Jacki [Ventolin 0.083% Nebulizer Soln -] 1 neb NEB Q4H PRN #30 vial 07/24/16 Prednisone [Deltasone -] 40 mg PO UTDICT #8 tablet 07/24/16 Family Disease History - Family Disease History Family History: Denies Review of Systems - Review of Systems Constitutional: denies: Chills, Fever Eyes: reports: No Symptoms HENT: reports: No Symptoms Cardiovascular: reports: Edema, Shortness of Breath Respiratory: reports: Cough, SOB, SOB on Exertion Gastrointestinal: reports: No Symptoms Genitourinary: reports: No Symptoms Neurological: reports: No Symptoms Endocrine: reports: No Symptoms Hematology/Lymphatic: reports: No Symptoms Psychiatric: reports: No Symptoms Physical Exam Vital Signs: Vital Signs Temperature 98.2 F 10/02/16 14:00 Pulse Rate 95 H 10/02/16 14:00 Respiratory Rate 20 10/02/16 14:00 Blood Pressure 140/97 10/02/16 14:00 O2 Sat by Pulse Oximetry (%) 97 10/02/16 09:00 Constitutional: Yes: Calm Eyes: Yes: Conjunctiva Clear HENT: Yes: Atraumatic Neck: Yes: Supple Cardiovascular: Yes: S1, S2 Respiratory: Yes: On Nasal O2, Wheezes Gastrointestinal: Yes: Soft Renal/: Yes: WNL Musculoskeletal: Yes: WNL Edema: Yes Edema: LLE: Trace, RLE: Trace Neurological: Yes: Oriented Psychiatric: Yes: Oriented Labs: Laboratory Tests 10/01/16 10/01/16 17:22 17:22 WBC 13.3 H Hgb 13.5 Sodium 140 Potassium 4.3 D Chloride 102 Carbon Dioxide 25 Anion Gap 13 BUN 11 Creatinine 0.9 Creat Clearance w eGFR > 60 Random Glucose 115 H Calcium 9.1 Total Bilirubin 1.0 D Imaging - Results Chest X-ray: Report Reviewed Problem List - Problems (1) Dyspnea Code(s): R06.00 - DYSPNEA, UNSPECIFIED (2) HTN (hypertension) Code(s): I10 - ESSENTIAL (PRIMARY) HYPERTENSION Qualifiers: Hypertension type: unspecified secondary hypertension Qualified Code (s): I15.9 - Secondary hypertension, unspecified; I15 - Secondary hypertension (3) Asthma Code(s): J45.909 - UNSPECIFIED ASTHMA, UNCOMPLICATED Qualifiers: Asthma severity: moderate persistent Asthma complication type: with acute exacerbation Qualified Code(s): J45.41 - Moderate persistent asthma with (acute) exacerbation (4) CHF (congestive heart failure) Code(s): I50.9 - HEART FAILURE, UNSPECIFIED (5) DM (diabetes mellitus) Code(s): E11.9 - TYPE 2 DIABETES MELLITUS WITHOUT COMPLICATIONS Qualifiers: Diabetes mellitus complication status: with ophthalmic complications Assessment/Plan Current Medications Generic Name Dose Route Start Last Admin Trade Name Freq PRN Reason Stop Dose Admin Albuterol/Ipratropium 1 amp 10/01/16 19:35 Duoneb - NEB Q6H PRN SHORTNESS OF BREATH Aspirin 81 mg 10/02/16 10:00 10/02/16 09:38 Ecotrin - PO 81 mg DAILY BRIT Administration Fluticasone Propionate 2 spray 10/01/16 19:45 10/02/16 09:26 Flonase - NS Not Given DAILY BRIT Insulin Aspart 1 vial 10/01/16 22:00 10/02/16 17:45 Novolog Vial Sliding Scale - SQ Not Given ACHS BRIT Protocol Lisinopril 5 mg 10/02/16 10:00 10/02/16 09:38 Prinivil PO 5 mg DAILY BRIT Administration Methylprednisolone Sodium Succinate 40 mg 10/01/16 19:45 10/02/16 17:46 Solu-Medrol - IVPB 40 mg Q8H-IV BRIT Administration Montelukast Sodium 10 mg 10/01/16 22:00 10/01/16 23:42 Singulair - PO 10 mg HS BRIT Administration Sodium Chloride 2 spray 10/01/16 19:35 [place] Nasal [place] - NS TID PRN NASAL CONGESTION Impression 1. COPD 2. dyspnea 3. hx CHF 4. DM 5. HTN Plan - agree with stopping IV lasix as pt does not appears to be in [place] CHF - repeat cxr in am - can resume home dose - check UA - discussed low salt diet with pt - will likely restart lasix PO tomorrow - steroids with taper Dr Zhang
[2016-10-02 21:50] LABS: URINE APPEARANCE CLEAR; URINE BILIRUBIN NEGATIVE (NEGATIVE); URINE BLOOD NEGATIVE (NEGATIVE); URINE COLOR LTYELLOW; URINE GLUCOSE (UA) NEGATIVE (NEGATIVE); URINE KETONE NEGATIVE (NEGATIVE); URINE LEUK ESTERASE NEGATIVE (NEGATIVE); URINE NITRITE NEGATIVE (NEGATIVE); URINE PROTEIN NEGATIVE (NEGATIVE); URINE UROBILINOGEN NEGATIVE E.U./dl (0.2-1.0)
[2016-10-02] MEDS: MONTELUKAST NA 10 MG TABLET PO SCH (22:40)
[2016-10-02] MEDS: ALBUTEROL SO4 2.5/IPRATROPIUM 0.5 INH SOL 3 ML VIAL.NEB. NEB PRN (22:49)
[2016-10-03] MEDS: methylPREDNISolone NA SUCC 40 MG/1 ML VIAL IVPB SCH ×3 (02:09→23:20)
[2016-10-03] MEDS: INSULIN SLIDING SCALE (NOVOLOG) 1 VIAL SQ SCH ×4 (06:28→23:23)
[2016-10-03 07:33] LABS: CALCIUM 9.8 mg/dL (8.5-10.1); COCKROFT - GAULT 95.16; CREATININE 1.1 mg/dL (0.7-1.3)
[2016-10-03] MEDS ORDERED: INSULIN (NOVOLOG) ASPART 100 UNITS/ML 10ML VIAL ONE (09:46)
[2016-10-03] MEDS: ASPIRIN COATED 81 MG TABLET.EC PO SCH (10:28)
[2016-10-03] MEDS: LISINOPRIL 5 MG TABLET (FP) PO SCH (10:28)
[2016-10-03] MEDS: FLUTICASONE PROP 0.05% 16 GM NASAL SPRAY NS SCH (10:29)
--- NOTE | 2016-10-03 10:55 | PN ---
Progress Note, Physician History of Present Illness: pulmonary alert,feeling better,less dyspneic,-cp - Current Medication List Current Medications: Active Medications Albuterol/Ipratropium (Duoneb -) 1 amp NEB Q6H PRN PRN Reason: SHORTNESS OF BREATH Last Admin: 10/02/16 22:49 Dose: 1 amp Aspirin (Ecotrin -) 81 mg PO DAILY [facility] Last Admin: 10/03/16 10:28 Dose: 81 mg Fluticasone Propionate (Flonase -) 2 spray NS DAILY [facility] Last Admin: 10/03/16 10:29 Dose: 2 spray Insulin Aspart (Novolog Vial Sliding Scale -) 1 vial SQ ACHS BRIT PRN Reason: Protocol Last Admin: 10/03/16 06:28 Dose: Not Given Lisinopril (Prinivil) 5 mg PO DAILY [facility] Last Admin: 10/03/16 10:28 Dose: 5 mg Methylprednisolone Sodium Succinate (Solu-Medrol -) 40 mg IVPB Q8H-IV [facility] Last Admin: 10/03/16 10:28 Dose: 40 mg Montelukast Sodium (Singulair -) 10 mg PO HS [facility] Last Admin: 10/02/16 22:40 Dose: 10 mg Sodium Chloride ([place] Nasal [place] -) 2 spray NS TID PRN PRN Reason: NASAL CONGESTION - Objective Vital Signs: Vital Signs Temperature 97.8 F 10/03/16 10:00 Pulse Rate 82 10/03/16 10:00 Respiratory Rate 20 10/03/16 10:00 Blood Pressure 129/68 10/03/16 10:00 O2 Sat by Pulse Oximetry (%) 97 10/02/16 22:00 Constitutional: Yes: Well Nourished, Calm Eyes: Yes: WNL HENT: Yes: WNL Cardiovascular: Yes: Regular Rate and Rhythm, S1, S2 Respiratory: Yes: Diminished Gastrointestinal: Yes: Normal Bowel Sounds, Soft Extremities: Yes: WNL Edema: No Labs: CBC, BMP 10/03/16 06:00 INR, PTT INR 1.23 (0.82-1.09) H 10/01/16 17:22 Problem List - Problems (1) Acute exacerbation of chronic obstructive pulmonary disease (COPD) Code(s): J44.1 - CHRONIC OBSTRUCTIVE PULMONARY DISEASE W (ACUTE) EXACERBATION (2) CHF (congestive heart failure) Code(s): I50.9 - HEART FAILURE, UNSPECIFIED (3) DM (diabetes mellitus) Code(s): E11.9 - TYPE 2 DIABETES MELLITUS WITHOUT COMPLICATIONS Qualifiers: Diabetes mellitus complication status: with ophthalmic complications (4) Shortness of breath Code(s): R06.02 - SHORTNESS OF BREATH (5) HTN (hypertension) Code(s): I10 - ESSENTIAL (PRIMARY) HYPERTENSION Qualifiers: Hypertension type: unspecified secondary hypertension Qualified Code (s): I15.9 - Secondary hypertension, unspecified; I15 - Secondary hypertension Assessment/Plan Progress Note: PULMONARY CONSULTATION DICTATED 10/02/16 IMP COPD EXACERBATION IMPROVING URI H/O CHF BPH DM HTN PLAN INHALED BRONCHODILATORS NASAL O2 STEROID TAPER F/U CHEST X-RAY TODAY DR MARROQUIN Problem List - Problems (1) Acute exacerbation of chronic obstructive pulmonary disease (COPD) Code(s): J44.1 - CHRONIC OBSTRUCTIVE PULMONARY DISEASE W (ACUTE) EXACERBATION (2) CHF (congestive heart failure) Code(s): I50.9 - HEART FAILURE, UNSPECIFIED (3) DM (diabetes mellitus) Code(s): E11.9 - TYPE 2 DIABETES MELLITUS WITHOUT COMPLICATIONS (4) Shortness of breath Code(s): R06.02 - SHORTNESS OF BREATH (5) HTN (hypertension) Code(s): I10 - ESSENTIAL (PRIMARY) HYPERTENSION
--- NOTE | 2016-10-03 13:15 | PN ---
Progress Note, Physician Chief Complaint: SOB improved Lying flat comfortable History of Present Illness: 71 year old male with a pmhx of copd, htn, dm, OA, and diastolic CHF who was admitted for dyspnea. Patient states that he has had some mild increase in dyspnea for last 2 days. No chest pain or palpitations. No pnd or orthopnea. No edema. - Current Medication List Current Medications: Active Medications Albuterol/Ipratropium (Duoneb -) 1 amp NEB Q6H PRN PRN Reason: SHORTNESS OF BREATH Last Admin: 10/02/16 22:49 Dose: 1 amp Aspirin (Ecotrin -) 81 mg PO DAILY [facility] Last Admin: 10/03/16 10:28 Dose: 81 mg Fluticasone Propionate (Flonase -) 2 spray NS DAILY [facility] Last Admin: 10/03/16 10:29 Dose: 2 spray Insulin Aspart (Novolog Vial Sliding Scale -) 1 vial SQ ACHS BRIT PRN Reason: Protocol Last Admin: 10/03/16 11:25 Dose: Not Given Lisinopril (Prinivil) 5 mg PO DAILY [facility] Last Admin: 10/03/16 10:28 Dose: 5 mg Methylprednisolone Sodium Succinate (Solu-Medrol -) 40 mg IVPB Q12H [place] Montelukast Sodium (Singulair -) 10 mg PO HS [facility] Last Admin: 10/02/16 22:40 Dose: 10 mg Sodium Chloride ([place] Nasal [place] -) 2 spray NS TID PRN PRN Reason: NASAL CONGESTION - Objective Vital Signs: Vital Signs Temperature 97.8 F 10/03/16 10:00 Pulse Rate 82 10/03/16 10:00 Respiratory Rate 20 10/03/16 10:00 Blood Pressure 129/68 10/03/16 10:00 O2 Sat by Pulse Oximetry (%) 97 10/02/16 22:00 Constitutional: Yes: No Distress Neck: Yes: Supple Cardiovascular: Yes: Regular Rate and Rhythm, S1, S2. No: JVD, Murmur Respiratory: Yes: CTA Bilaterally Gastrointestinal: Yes: Normal Bowel Sounds, Soft Edema: No Labs: CBC, BMP 10/03/16 06:00 INR, PTT INR 1.23 (0.82-1.09) H 10/01/16 17:22 - ....Imaging Chest X-ray: Report Reviewed Problem List - Problems (1) Dyspnea Code(s): R06.00 - DYSPNEA, UNSPECIFIED Assessment/Plan 71 year old male with a pmhx of copd, htn, dm, OA, and diastolic CHF who was admitted for dyspnea. Patient states that he has had some mild increase in dyspnea for last 2 days. No chest pain or palpitations. No pnd or orthopnea. No edema. 1) Dyspnea Improved. Likely due to copd exacerbation -Does not appear to be significantly overloaded on exam. BNP normal at 70 Reports some LE edema at home (got two doses of iv lasix prior to my initial exam). Can start furosemide 40mg PO daily to be continued as an outpatient. No acute ekg changes -Plan for echocardiogram but if patient is up for discharge and still not done can have it done as an outpatient 2) HTN -controlled on low dose lisinopril Patient with elevated ESR 75 and WBC 13. F/u with primary team whether any further work up needed.
--- NOTE | 2016-10-03 16:17 | PN ---
Progress Note, Physician History of Present Illness: Pt seen and examined at bedside. He feels that his breathing is improved. He is off of oxygen. - Current Medication List Current Medications: Active Medications Albuterol/Ipratropium (Duoneb -) 1 amp NEB Q6H PRN PRN Reason: SHORTNESS OF BREATH Last Admin: 10/02/16 22:49 Dose: 1 amp Aspirin (Ecotrin -) 81 mg PO DAILY [facility] Last Admin: 10/03/16 10:28 Dose: 81 mg Fluticasone Propionate (Flonase -) 2 spray NS DAILY [facility] Last Admin: 10/03/16 10:29 Dose: 2 spray Insulin Aspart (Novolog Vial Sliding Scale -) 1 vial SQ ACHS BRIT PRN Reason: Protocol Last Admin: 10/03/16 11:25 Dose: Not Given Lisinopril (Prinivil) 5 mg PO DAILY [facility] Last Admin: 10/03/16 10:28 Dose: 5 mg Methylprednisolone Sodium Succinate (Solu-Medrol -) 40 mg IVPB Q12H BRIT Montelukast Sodium (Singulair -) 10 mg PO HS [facility] Last Admin: 10/02/16 22:40 Dose: 10 mg Sodium Chloride ([place] Nasal [place] -) 2 spray NS TID PRN PRN Reason: NASAL CONGESTION - Objective Vital Signs: Vital Signs Temperature 97.5 F L 10/03/16 14:00 Pulse Rate 82 10/03/16 14:00 Respiratory Rate 20 10/03/16 14:00 Blood Pressure 124/72 10/03/16 14:00 O2 Sat by Pulse Oximetry (%) 97 10/03/16 09:00 Constitutional: Yes: Calm Eyes: Yes: Conjunctiva Clear HENT: Yes: Atraumatic Neck: Yes: Supple Cardiovascular: Yes: S1, S2 Respiratory: Yes: CTA Bilaterally Gastrointestinal: Yes: Soft Genitourinary: Yes: WNL Musculoskeletal: Yes: WNL Edema: Yes Edema: LLE: Trace, RLE: Trace Neurological: Yes: Oriented Psychiatric: Yes: Oriented Labs: CBC, BMP 10/03/16 06:00 INR, PTT INR 1.23 (0.82-1.09) H 10/01/16 17:22 Problem List - Problems (1) Dyspnea Code(s): R06.00 - DYSPNEA, UNSPECIFIED (2) HTN (hypertension) Code(s): I10 - ESSENTIAL (PRIMARY) HYPERTENSION Qualifiers: Hypertension type: unspecified secondary hypertension Qualified Code (s): I15.9 - Secondary hypertension, unspecified; I15 - Secondary hypertension (3) Asthma Code(s): J45.909 - UNSPECIFIED ASTHMA, UNCOMPLICATED Qualifiers: Asthma severity: moderate persistent Asthma complication type: with acute exacerbation Qualified Code(s): J45.41 - Moderate persistent asthma with (acute) exacerbation (4) CHF (congestive heart failure) Code(s): I50.9 - HEART FAILURE, UNSPECIFIED (5) DM (diabetes mellitus) Code(s): E11.9 - TYPE 2 DIABETES MELLITUS WITHOUT COMPLICATIONS Qualifiers: Diabetes mellitus complication status: with ophthalmic complications Assessment/Plan Current Medications Generic Name Dose Route Start Last Admin Trade Name Freq PRN Reason Stop Dose Admin Albuterol/Ipratropium 1 amp 10/01/16 19:35 10/02/16 22:49 Duoneb - NEB 1 amp Q6H PRN Administration SHORTNESS OF BREATH Aspirin 81 mg 10/02/16 10:00 10/03/16 10:28 Ecotrin - PO 81 mg DAILY BRIT Administration Fluticasone Propionate 2 spray 10/01/16 19:45 10/03/16 10:29 Flonase - NS 2 spray DAILY BRIT Administration Insulin Aspart 1 vial 10/01/16 22:00 10/03/16 11:25 Novolog Vial Sliding Scale - SQ Not Given ACHS BRIT Protocol Lisinopril 5 mg 10/02/16 10:00 10/03/16 10:28 Prinivil PO 5 mg DAILY BRIT Administration Methylprednisolone Sodium Succinate 40 mg 10/03/16 22:00 Solu-Medrol - IVPB Q12H BRIT Montelukast Sodium 10 mg 10/01/16 22:00 10/02/16 22:40 Singulair - PO 10 mg HS BRIT Administration Sodium Chloride 2 spray 10/01/16 19:35 [place] Nasal [place] - NS TID PRN NASAL CONGESTION Laboratory Tests 10/02/16 21:30 Urine Protein Negative Urine Blood Negative Impression 1. COPD 2. dyspnea 3. hx CHF 4. DM 5. HTN Plan - BUN likely elevated from steroids - UA is negative - will restart lasix for tomorrow - taper steroids as tolerated - cxr reviewed - discussed low salt diet with pt Dr Zhang
--- NOTE | 2016-10-03 18:18 | PN ---
Progress Note, Physician Chief Complaint: AWAKE ALERT BREATHING BETTER - Current Medication List Current Medications: Active Medications Albuterol/Ipratropium (Duoneb -) 1 amp NEB Q6H PRN PRN Reason: SHORTNESS OF BREATH Last Admin: 10/02/16 22:49 Dose: 1 amp Aspirin (Ecotrin -) 81 mg PO DAILY [facility] Last Admin: 10/03/16 10:28 Dose: 81 mg Fluticasone Propionate (Flonase -) 2 spray NS DAILY [facility] Last Admin: 10/03/16 10:29 Dose: 2 spray Furosemide (Lasix -) 40 mg PO DAILY [facility] Insulin Aspart (Novolog Vial Sliding Scale -) 1 vial SQ ACHS BRIT PRN Reason: Protocol Last Admin: 10/03/16 17:11 Dose: Not Given Lisinopril (Prinivil) 5 mg PO DAILY [facility] Last Admin: 10/03/16 10:28 Dose: 5 mg Methylprednisolone Sodium Succinate (Solu-Medrol -) 40 mg IVPB Q12H BRIT Montelukast Sodium (Singulair -) 10 mg PO HS [facility] Last Admin: 10/02/16 22:40 Dose: 10 mg Sodium Chloride ([place] Nasal [place] -) 2 spray NS TID PRN PRN Reason: NASAL CONGESTION - Objective Vital Signs: Vital Signs Temperature 97.5 F L 10/03/16 14:00 Pulse Rate 82 10/03/16 14:00 Respiratory Rate 20 10/03/16 14:00 Blood Pressure 124/72 10/03/16 14:00 O2 Sat by Pulse Oximetry (%) 97 10/03/16 09:00 Constitutional: Yes: Mild Distress Eyes: Yes: WNL HENT: Yes: WNL Neck: Yes: WNL Cardiovascular: Yes: WNL Respiratory: Yes: Poor Air Entry, SOB Gastrointestinal: Yes: WNL Genitourinary: Yes: WNL Musculoskeletal: Yes: WNL Extremities: Yes: WNL Edema: No Peripheral Pulses WNL: Yes Integumentary: Yes: WNL Wound/Incision: Yes: Clean/Dry Neurological: Yes: WNL ...Motor Strength: WNL Psychiatric: Yes: WNL Labs: CBC, BMP 10/03/16 06:00 INR, PTT INR 1.23 (0.82-1.09) H 10/01/16 17:22 Problem List - Problems (1) Acute exacerbation of CHF (congestive heart failure) Code(s): I50.9 - HEART FAILURE, UNSPECIFIED Qualifiers: Congestive heart failure type: unspecified congestive heart failure type Qualified Code(s): I50.9 - Heart failure, unspecified (2) Acute exacerbation of chronic obstructive pulmonary disease (COPD) Code(s): J44.1 - CHRONIC OBSTRUCTIVE PULMONARY DISEASE W (ACUTE) EXACERBATION (3) HTN (hypertension) Code(s): I10 - ESSENTIAL (PRIMARY) HYPERTENSION Qualifiers: Hypertension type: unspecified secondary hypertension Qualified Code (s): I15.9 - Secondary hypertension, unspecified; I15 - Secondary hypertension (4) DM (diabetes mellitus) Code(s): E11.9 - TYPE 2 DIABETES MELLITUS WITHOUT COMPLICATIONS Qualifiers: Diabetes mellitus complication status: with ophthalmic complications Assessment/Plan NEBS 02 SUPPORT STEROIDS SSI ADA PULM AND CARDIO EVAL LASIX IV ECHO FOR CARDIAC FUNCTION DAILY [facility]
[2016-10-03] MEDS: ALBUTEROL SO4 2.5/IPRATROPIUM 0.5 INH SOL 3 ML VIAL.NEB. NEB PRN (19:26)
[2016-10-03] MEDS: MONTELUKAST NA 10 MG TABLET PO SCH (23:20)
[2016-10-03] MEDS ORDERED: PT OWN MED DRAWER 7, Y5N ONE (23:25)
[2016-10-04] MEDS: ALBUTEROL SO4 2.5/IPRATROPIUM 0.5 INH SOL 3 ML VIAL.NEB. NEB PRN ×3 (00:05→11:18)
[2016-10-04] MEDS: INSULIN SLIDING SCALE (NOVOLOG) 1 VIAL SQ SCH ×3 (06:25→17:36)
[2016-10-04] MEDS ORDERED: ACETAMINOPHEN 325 MG TABLET (FP) ONE (09:03)
[2016-10-04] MEDS: LISINOPRIL 5 MG TABLET (FP) PO SCH (09:08)
[2016-10-04] MEDS: ASPIRIN COATED 81 MG TABLET.EC PO SCH (09:09)
[2016-10-04] MEDS: methylPREDNISolone NA SUCC 40 MG/1 ML VIAL IVPB SCH (09:13)
[2016-10-04] MEDS: FLUTICASONE PROP 0.05% 16 GM NASAL SPRAY NS SCH (09:14)
[2016-10-04] MEDS ORDERED: FUROSEMIDE 40 MG TABLET (FP) PO SCH (10:00)
--- NOTE | 2016-10-04 12:42 | PN ---
Progress Note, Physician History of Present Illness: PULMONARY ALERT,NAD,-SOB,-CP,-COUGH - Current Medication List Current Medications: Active Medications Albuterol/Ipratropium (Duoneb -) 1 amp NEB Q6H PRN PRN Reason: SHORTNESS OF BREATH Last Admin: 10/04/16 11:18 Dose: 1 amp Aspirin (Ecotrin -) 81 mg PO DAILY [facility] Last Admin: 10/04/16 09:09 Dose: 81 mg Fluticasone Propionate (Flonase -) 2 spray NS DAILY [facility] Last Admin: 10/04/16 09:14 Dose: Not Given Furosemide (Lasix -) 40 mg PO DAILY [facility] Last Admin: 10/04/16 09:08 Dose: 40 mg Insulin Aspart (Novolog Vial Sliding Scale -) 1 vial SQ ACHS [facility] PRN Reason: Protocol Last Admin: 10/04/16 06:25 Dose: Not Given Lisinopril (Prinivil) 5 mg PO DAILY [facility] Last Admin: 10/04/16 09:08 Dose: 5 mg Methylprednisolone Sodium Succinate (Solu-Medrol -) 40 mg IVPB Q12H [facility] Last Admin: 10/04/16 09:13 Dose: 40 mg Montelukast Sodium (Singulair -) 10 mg PO HS [facility] Last Admin: 10/03/16 23:20 Dose: 10 mg Sodium Chloride ([place] Nasal [place] -) 2 spray NS TID PRN PRN Reason: NASAL CONGESTION - Objective Vital Signs: Vital Signs Temperature 98.3 F 10/04/16 06:00 Pulse Rate 69 10/04/16 11:19 Respiratory Rate 20 10/04/16 06:00 Blood Pressure 147/57 10/04/16 06:00 O2 Sat by Pulse Oximetry (%) 97 10/04/16 11:19 Constitutional: Yes: Well Nourished, Calm Eyes: Yes: WNL HENT: Yes: WNL Neck: Yes: WNL Cardiovascular: Yes: Regular Rate and Rhythm, S1, S2 Respiratory: Yes: CTA Bilaterally Gastrointestinal: Yes: Normal Bowel Sounds, Soft Extremities: Yes: WNL Edema: No Labs: CBC, BMP 10/03/16 06:00 INR, PTT INR 1.23 (0.82-1.09) H 10/01/16 17:22 Problem List - Problems (1) Acute exacerbation of chronic obstructive pulmonary disease (COPD) Code(s): J44.1 - CHRONIC OBSTRUCTIVE PULMONARY DISEASE W (ACUTE) EXACERBATION (2) CHF (congestive heart failure) Code(s): I50.9 - HEART FAILURE, UNSPECIFIED (3) DM (diabetes mellitus) Code(s): E11.9 - TYPE 2 DIABETES MELLITUS WITHOUT COMPLICATIONS Qualifiers: Diabetes mellitus complication status: with ophthalmic complications (4) Shortness of breath Code(s): R06.02 - SHORTNESS OF BREATH (5) HTN (hypertension) Code(s): I10 - ESSENTIAL (PRIMARY) HYPERTENSION Qualifiers: Hypertension type: unspecified secondary hypertension Qualified Code (s): I15.9 - Secondary hypertension, unspecified; I15 - Secondary hypertension Assessment/Plan Progress Note: PULMONARY IMP COPD EXACERBATION IMPROVING URI H/O CHF BPH DM HTN PLAN INHALED BRONCHODILATORS NASAL O2 PREDNISONE 40mg PO DAILY DR MARROQUIN Problem List - Problems (1) Acute exacerbation of chronic obstructive pulmonary disease (COPD) Code(s): J44.1 - CHRONIC OBSTRUCTIVE PULMONARY DISEASE W (ACUTE) EXACERBATION (2) CHF (congestive heart failure) Code(s): I50.9 - HEART FAILURE, UNSPECIFIED (3) DM (diabetes mellitus) Code(s): E11.9 - TYPE 2 DIABETES MELLITUS WITHOUT COMPLICATIONS (4) Shortness of breath Code(s): R06.02 - SHORTNESS OF BREATH (5) HTN (hypertension) Code(s): I10 - ESSENTIAL (PRIMARY) HYPERTENSION
[2016-10-04] MEDS ORDERED: ACETAMINOPHEN 325 MG TABLET (FP) PO PRN (14:26)
--- NOTE | 2016-10-04 14:28 | PN ---
Progress Note, Physician History of Present Illness: Pt seen and examined at bedside. He is awake and alert. He feels that his breathing is improved. - Current Medication List Current Medications: Active Medications Acetaminophen (Tylenol -) 650 mg PO Q6H PRN PRN Reason: FEVER OR PAIN Albuterol/Ipratropium (Duoneb -) 1 amp NEB Q6H PRN PRN Reason: SHORTNESS OF BREATH Last Admin: 10/04/16 11:18 Dose: 1 amp Aspirin (Ecotrin -) 81 mg PO DAILY [facility] Last Admin: 10/04/16 09:09 Dose: 81 mg Fluticasone Propionate (Flonase -) 2 spray NS DAILY [facility] Last Admin: 10/04/16 09:14 Dose: Not Given Furosemide (Lasix -) 40 mg PO DAILY [facility] Last Admin: 10/04/16 09:08 Dose: 40 mg Insulin Aspart (Novolog Vial Sliding Scale -) 1 vial SQ ACHS BRIT PRN Reason: Protocol Last Admin: 10/04/16 12:54 Dose: 2 units Lisinopril (Prinivil) 5 mg PO DAILY [facility] Last Admin: 10/04/16 09:08 Dose: 5 mg Montelukast Sodium (Singulair -) 10 mg PO HS [facility] Last Admin: 10/03/16 23:20 Dose: 10 mg Prednisone (Deltasone -) 40 mg PO DAILY [facility] Sodium Chloride ([place] Nasal [place] -) 2 spray NS TID PRN PRN Reason: NASAL CONGESTION - Objective Vital Signs: Vital Signs Temperature 98.3 F 10/04/16 06:00 Pulse Rate 69 10/04/16 11:19 Respiratory Rate 20 10/04/16 06:00 Blood Pressure 147/57 10/04/16 06:00 O2 Sat by Pulse Oximetry (%) 97 10/04/16 11:19 Constitutional: Yes: Calm Eyes: Yes: Conjunctiva Clear HENT: Yes: Atraumatic Neck: Yes: Supple Cardiovascular: Yes: S1, S2 Respiratory: Yes: CTA Bilaterally Gastrointestinal: Yes: Normal Bowel Sounds, Soft Genitourinary: Yes: WNL Musculoskeletal: Yes: WNL Edema: No Neurological: Yes: Oriented Psychiatric: Yes: Oriented Labs: CBC, BMP 10/03/16 06:00 INR, PTT INR 1.23 (0.82-1.09) H 10/01/16 17:22 Problem List - Problems (1) Dyspnea Code(s): R06.00 - DYSPNEA, UNSPECIFIED (2) HTN (hypertension) Code(s): I10 - ESSENTIAL (PRIMARY) HYPERTENSION Qualifiers: Hypertension type: unspecified secondary hypertension Qualified Code (s): I15.9 - Secondary hypertension, unspecified; I15 - Secondary hypertension (3) Asthma Code(s): J45.909 - UNSPECIFIED ASTHMA, UNCOMPLICATED Qualifiers: Asthma severity: moderate persistent Asthma complication type: with acute exacerbation Qualified Code(s): J45.41 - Moderate persistent asthma with (acute) exacerbation (4) CHF (congestive heart failure) Code(s): I50.9 - HEART FAILURE, UNSPECIFIED (5) DM (diabetes mellitus) Code(s): E11.9 - TYPE 2 DIABETES MELLITUS WITHOUT COMPLICATIONS Qualifiers: Diabetes mellitus complication status: with ophthalmic complications Assessment/Plan Current Medications Generic Name Dose Route Start Last Admin Trade Name Freq PRN Reason Stop Dose Admin Acetaminophen 650 mg 10/04/16 14:26 Tylenol - PO Q6H PRN FEVER OR PAIN Albuterol/Ipratropium 1 amp 10/01/16 19:35 10/04/16 11:18 Duoneb - NEB 1 amp Q6H PRN Administration SHORTNESS OF BREATH Aspirin 81 mg 10/02/16 10:00 10/04/16 09:09 Ecotrin - PO 81 mg DAILY [facility] Administration Fluticasone Propionate 2 spray 10/01/16 19:45 10/04/16 09:14 Flonase - NS Not Given DAILY [facility] Furosemide 40 mg 10/04/16 10:00 10/04/16 09:08 Lasix - PO 40 mg DAILY [facility] Administration Insulin Aspart 1 vial 10/01/16 22:00 10/04/16 12:54 Novolog Vial Sliding Scale - SQ 2 units ACHS [facility] Administration Protocol Lisinopril 5 mg 10/02/16 10:00 10/04/16 09:08 Prinivil PO 5 mg DAILY [facility] Administration Montelukast Sodium 10 mg 10/01/16 22:00 10/03/16 23:20 Singulair - PO 10 mg HS [facility]IT Administration Prednisone 40 mg 10/05/16 10:00 Deltasone - PO DAILY [facility] Sodium Chloride 2 spray 10/01/16 19:35 [place] Nasal [place] - NS TID PRN NASAL CONGESTION Impression 1. COPD 2. dyspnea 3. hx CHF 4. DM 5. HTN Plan - no new labs - lasix restarted today - can see pt in office - steroid taper as tolerated - pt now off of oxygen - discussed low salt diet with pt Dr Zhang
--- NOTE | 2016-10-04 14:59 | PN ---
Progress Note, Physician Chief Complaint: no new complaints History of Present Illness: 71 year old male with a pmhx of copd, htn, dm, OA, and diastolic CHF who was admitted for dyspnea. Patient states that he has had some mild increase in dyspnea for last 2 days. No chest pain or palpitations. No pnd or orthopnea. No edema. BNP normal. - Current Medication List Current Medications: Active Medications Acetaminophen (Tylenol -) 650 mg PO Q6H PRN PRN Reason: FEVER OR PAIN Albuterol/Ipratropium (Duoneb -) 1 amp NEB Q6H PRN PRN Reason: SHORTNESS OF BREATH Last Admin: 10/04/16 11:18 Dose: 1 amp Aspirin (Ecotrin -) 81 mg PO DAILY [facility] Last Admin: 10/04/16 09:09 Dose: 81 mg Fluticasone Propionate (Flonase -) 2 spray NS DAILY [facility] Last Admin: 10/04/16 09:14 Dose: Not Given Furosemide (Lasix -) 40 mg PO DAILY [facility] Last Admin: 10/04/16 09:08 Dose: 40 mg Insulin Aspart (Novolog Vial Sliding Scale -) 1 vial SQ ACHS [facility] PRN Reason: Protocol Last Admin: 10/04/16 12:54 Dose: 2 units Lisinopril (Prinivil) 5 mg PO DAILY [facility] Last Admin: 10/04/16 09:08 Dose: 5 mg Montelukast Sodium (Singulair -) 10 mg PO HS [facility] Last Admin: 10/03/16 23:20 Dose: 10 mg Prednisone (Deltasone -) 40 mg PO DAILY [facility] Sodium Chloride ([place] Nasal [place] -) 2 spray NS TID PRN PRN Reason: NASAL CONGESTION - Objective Vital Signs: Vital Signs Temperature 98.3 F 10/04/16 10:00 Pulse Rate 69 10/04/16 11:19 Respiratory Rate 20 10/04/16 10:00 Blood Pressure 154/81 10/04/16 10:00 O2 Sat by Pulse Oximetry (%) 97 10/04/16 11:19 Constitutional: Yes: Well Nourished, No Distress Eyes: Yes: WNL HENT: Yes: WNL Neck: Yes: Supple, Trachea Midline Cardiovascular: Yes: Regular Rate and Rhythm Respiratory: Yes: CTA Bilaterally Gastrointestinal: Yes: Normal Bowel Sounds Extremities: Yes: WNL Edema: No Peripheral Pulses WNL: Yes Labs: CBC, BMP 10/03/16 06:00 INR, PTT INR 1.23 (0.82-1.09) H 10/01/16 17:22 Problem List - Problems (1) Acute exacerbation of CHF (congestive heart failure) Assessment/Plan: check echo. no need for diuresis, given normal BNP low likelihood of CHF as opposed to COPD. RX per pulmonary. no need for ischemia workup as an inpatient. Code(s): I50.9 - HEART FAILURE, UNSPECIFIED Qualifiers: Congestive heart failure type: unspecified congestive heart failure type
--- NOTE | 2016-10-04 16:10 | DS ---
Physical Examination Vital Signs: Vital Signs Temperature 98.2 F 10/04/16 14:41 Pulse Rate 89 10/04/16 14:41 Respiratory Rate 16 10/04/16 14:41 Blood Pressure 132/77 10/04/16 14:41 O2 Sat by Pulse Oximetry (%) 97 10/04/16 11:19 Constitutional: Yes: No Distress Eyes: Yes: WNL HENT: Yes: WNL Neck: Yes: WNL Cardiovascular: Yes: WNL Respiratory: Yes: WNL Gastrointestinal: Yes: WNL Renal/: Yes: WNL Musculoskeletal: Yes: WNL Extremities: Yes: WNL Edema: No Peripheral Pulses WNL: Yes Integumentary: Yes: WNL Wound/Incision: Yes: Clean/Dry Neurological: Yes: WNL ...Motor Strength: WNL Psychiatric: Yes: WNL Labs: CBC, BMP 10/03/16 06:00 Discharge Summary Reason For Visit: CHRONICE OBSTRUCTIVE PULMONARY DISEASE Current Active Problems Acute exacerbation of CHF (congestive heart failure) (Acute) Acute exacerbation of chronic obstructive pulmonary disease (COPD) (Acute) Dyspnea (Acute) HTN (hypertension) (Acute) TMJ (temporomandibular joint disorder) (Acute) Procedures: Principal: cxr Hospital Course: admitted for acute on chronic copd, given iv abx and iv steroids, nebs 02 therapy and improved, f/u as outpatient in 1 week Condition: Improved - Instructions Diet, Activity, Other Instructions: ada/low sodium Referrals: David Gaytan MD [Primary Care Provider] - Disposition: HOME - Home Medications Comprehensive Discharge Medication List: Ambulatory Orders Multivitamin/Iron/Folic Acid [Centrum Complete Multivit Tab] 1 each PO DAILY 12/26 Furosemide [Lasix -] 40 mg PO DAILY #0 tablet 04/18/13 Montelukast Na [Singulair -] 10 mg PO HS #0 tablet 04/18/13 Aspirin [ASA -] 81 mg PO DAILY #0 tab.chew 07/31/14 Fluticasone Prop 0.05% Nasal [Flonase -] 1 - 2 spray NS BID 12/24/15 Albuterol Sulfate Inhaler - [Ventolin HFA Inhaler -] 1 - 2 inh PO Q4H PRN #1 inhaler 01/11/16 Aclidinium [place] [Tudorza -] 1 puff IH BID inhaler 03/18/16 Budesonide/Formeterol Fumarate [SYMBICORT 80/4.5mcg -] 2 puff IH BID inhaler Lisinopril [Prinivil] 2.5 mg PO DAILY tablet 03/18/16 Albuterol 0.083% Nebulizer Jacki [Ventolin 0.083% Nebulizer Soln -] 1 neb NEB Q4H PRN #30 vial 07/24/16 Acetaminophen [Tylenol .Regular Strength -] 650 mg PO Q6H PRN #0 tablet Albuterol 2.5/Ipratropium 0.5 [Duoneb -] 1 amp NEB Q6H PRN #0 amp 10/04/16 Fluticasone Prop 0.05% Nasal [Flonase -] 2 spray NS DAILY #1 spray 10/04/16 Furosemide [Lasix -] 40 mg PO DAILY tablet 10/04/16 Insulin Sliding Scale [Novolog Vial Sliding Scale -] 1 vial SQ ACHS units 10/04 Lisinopril [Prinivil] 5 mg PO DAILY tablet 10/04/16 Montelukast Na [Singulair -] 10 mg PO HS tablet 10/04/16 Prednisone [Deltasone -] 40 mg PO DAILY #30 tablet 10/04/16 Sodium Chloride Nasal [place] [[place] Nasal [place] -] 2 spray NS TID PRN #1 spray 10/04/16
[2016-10-04 18:11] VITALS: BP 135/79; PULSE 80; TEMP 97.7
[2016-10-05] MEDS ORDERED: predniSONE 20 MG TABLET (UD) PO SCH (10:00)
== END 2016-10-04 18:20 | disposition home or self-care (01) | DRG 190 ==
LOC: JER 15:14 → JERBED 19:25 → J4S 10-02 00:43
PROVIDERS: ADMIT Family Medicine; ATTEND Family Medicine
DX: J44.1 Chronic obstructive pulmonary disease with (acute) exacerbation (principal); I50.33 Acute on chronic diastolic (congestive) heart failure; I10 Essential (primary) hypertension; E11.9 Type 2 diabetes mellitus without complications; N40.0 Benign prostatic hyperplasia without lower urinary tract symptoms; J06.9 Acute upper respiratory infection, unspecified; M19.90 Unspecified osteoarthritis, unspecified site; I11.0 Hypertensive heart disease with heart failure; Z87.891 Personal history of nicotine dependence
CPT/HCPCS: 36415; 71010-TC; 80048; 80053; 81003; 82550; 82553; 83880; 84484; 85025; 85610; 85651; 93005; 93010; 93306-TC; 94640; 99285-25

== ENCOUNTER 2016-12-05 20:22 | Inpatient (IN) | payer BC, OTHER ==
[2016-12-05] MEDS ORDERED: FUROSEMIDE 40 MG/4 ML INJECTABLE VIAL ONE (21:02)
--- NOTE | 2016-12-05 21:09 | PDOC ---
History of Present Illness - General History Source: Patient Exam Limitations: No Limitations - History of Present Illness Initial Comments: 12/05/16 21:31 The patient is a 71 year old male, with significant past medical history of COPD , HTN, and diabetes, who presents today complaining of shortness of breath and chest tightness starting this morning. The patient states that the SOB began while laying down and progressively worsened throughout the day. He notes that he has not had air conditioning in his home recently. He also notes that he ran out of Lasix 2 days ago. He reports that this is not the worst exacerbation of his COPD, but wanted to nip the symptoms in the bud before it got any worse. Denies chest pain. Denies cough. Denies leg swelling. Denies fever, chills, nausea, vomiting, abdominal pain. Allergies: ibuprofen PCP- Dr. Gaytan <Consuelo Cartagena - Last Filed: 12/05/16 21:31> <Lucinda Arguello - Last Filed: 12/06/16 03:59> - General Chief Complaint: Shortness of Breath Stated Complaint: DIFFICULTY BREATHING Time Seen by Provider: 12/05/16 21:01 Past History <Consuelo Cartagena - Last Filed: 12/05/16 21:31> - Past Medical History Anemia: No Asthma: Yes (denies) Cardiac Disorders: Yes (CHF) CVA: No COPD: Yes CHF: Yes Dementia: No Diabetes: Yes GI Disorders: No Disorders: Yes (ENLARGED PROSTATE) HTN: Yes (denies) Hypercholesterolemia: No Liver Disease: No Seizures: No Thyroid Disease: No - Surgical History Abdominal Surgery: No Appendectomy: No Cardiac Surgery: No Cholecystectomy: No - Immunization History Immunization Up to Date: Yes - Psycho/Social/Smoking Cessation Hx Anxiety: No Suicidal Ideation: No Smoking Status: No Smoking History: Former smoker Have you smoked in the past 12 months: No Number of Cigarettes Smoked Daily: 0 If you are a former smoker, when did you quit?: 2001 Information on smoking cessation initiated: No 'Breaking Loose' booklet given: 01/08/12 Hx Alcohol Use: No Drug/Substance Use Hx: No Substance Use Type: None Hx Substance Use Treatment: No <Lucinda Arguello - Last Filed: 12/06/16 03:59> - Past Medical History Allergies/Adverse Reactions: Allergies Allergy/AdvReac Type Severity Reaction Status Date / Time ibuprofen [From Advil] Allergy Unknown Vomiting Verified 12/05/16 20:25 azithromycin [From Zithromax] AdvReac Mild Vomiting Verified 12/06/16 00:32 Home Medications: Ambulatory Orders Aspirin [ASA -] 81 mg PO DAILY #0 tab.chew 07/31/14 Fluticasone Prop 0.05% Nasal [Flonase -] 1 - 2 spray NS BID 12/24/15 Albuterol Sulfate Inhaler - [Ventolin HFA Inhaler -] 1 - 2 inh PO Q4H PRN #1 inhaler 01/11/16 Budesonide/Formeterol Fumarate [SYMBICORT 80/4.5mcg -] 2 puff IH BID inhaler Albuterol 0.083% Nebulizer Jacki [Ventolin 0.083% Nebulizer Soln -] 1 neb NEB Q4H PRN #30 vial 07/24/16 Acetaminophen [Tylenol .Regular Strength -] 650 mg PO Q6H PRN #0 tablet Albuterol 2.5/Ipratropium 0.5 [Duoneb -] 1 amp NEB Q6H PRN #0 amp 10/04/16 Furosemide [Lasix -] 40 mg PO DAILY tablet 10/04/16 Montelukast Na [Singulair -] 10 mg PO HS tablet 10/04/16 Famotidine [Pepcid -] 20 mg PO DAILY 12/05/16 Prednisone [Deltasone -] 10 mg PO DAILY 12/05/16 Rosuvastatin [Crestor -] 10 mg PO DAILY 12/05/16 Tamsulosin HCl [Flomax] 0.4 mg PO DAILY 12/05/16 Tiotropium Br/Olodaterol HCl [Stiolto Respimat Inhal [place]] 4 gm IH DAILY Review of Systems - Review of Systems Able to Perform ROS?: Yes Comments:: 12/05/16 21:31 GENERAL/CONSTITUTIONAL: No fever or chills. No weakness. HEAD, EYES, EARS, NOSE AND THROAT: No change in vision. No ear pain or discharge. No sore throat. CARDIOVASCULAR: No chest pain. RESPIRATORY: +shortness of breath. +chest tightness. No cough, wheezing, or hemoptysis. GASTROINTESTINAL: No nausea, vomiting, diarrhea or constipation. GENITOURINARY: No dysuria, frequency, or change in urination. MUSCULOSKELETAL: No joint or muscle swelling or pain. No neck or back pain. SKIN: No rash NEUROLOGIC: No headache, vertigo, loss of consciousness, or change in strength/ sensation. ENDOCRINE: No increased thirst. No abnormal weight change. HEMATOLOGIC/LYMPHATIC: No anemia, easy bleeding, or history of blood clots. ALLERGIC/IMMUNOLOGIC: No hives or skin allergy. <Consuelo Cartagena - Last Filed: 12/05/16 21:31> *Physical Exam - Vital Signs Last Vital Signs Temp Pulse Resp BP Pulse Ox 99.5 F 109 H 24 132/73 96 12/05/16 20:26 12/05/16 20:26 12/05/16 20:26 12/05/16 20:26 12/05/16 20:26 - Physical Exam Comments: 12/05/16 21:32 GENERAL: Awake, alert, and fully oriented, in no acute distress HEAD: No signs of trauma EYES: PERRLA, EOMI, sclera anicteric, conjunctiva clear ENT: Auricles normal inspection, hearing grossly normal, nares patent, oropharynx clear without exudates. Moist mucosa NECK: Normal ROM, supple, no lymphadenopathy, JVD, or masses LUNGS: Breath sounds equal, clear to auscultation bilaterally. No wheezes, and no crackles HEART: Regular rate and rhythm, normal S1 and S2, no murmurs, rubs or gallops ABDOMEN: Soft, nontender, normoactive bowel sounds. No guarding, no rebound. No masses EXTREMITIES: Normal range of motion, no edema. No clubbing or cyanosis. No cords, erythema, or tenderness NEUROLOGICAL: Cranial nerves II through XII grossly intact. Normal speech, normal gait SKIN: Warm, Dry, normal turgor, no rashes or lesions noted. <Consuelo Cartagena - Last Filed: 12/05/16 21:31> - Vital Signs Last Vital Signs Temp Pulse Resp BP Pulse Ox 99.5 F 109 H 24 132/73 96 12/05/16 20:26 12/05/16 20:26 12/05/16 20:26 12/05/16 20:26 12/05/16 20:26 <Lucinda Arguello - Last Filed: 12/06/16 03:59> ED Treatment Course - LABORATORY CBC & Chemistry Diagram: 12/05/16 21:15 12/05/16 21:15 - ADDITIONAL ORDERS Additional order review: 12/05/16 21:15 RBC 5.10 MCV 86.2 MCHC 32.6 RDW 14.0 MPV 8.2 Neutrophils % Y Lymphocytes % Y <Consuelo Cartagena - Last Filed: 12/05/16 21:31> - LABORATORY CBC & Chemistry Diagram: 12/05/16 21:15 12/05/16 21:15 <Lucinda Arguello - Last Filed: 12/06/16 03:59> Medical Decision Making - Medical Decision Making 12/05/16 23:54 Patient Name: Kamran Bravo THIS IS A PRELIMINARYREPORT FROM [facility]EL[facility] EXAM: X-ray chest IMAGES: 4 INDICATION: Shortness of breath DATE OF SERVICE: 2016-12-05 21:48:22.0 COMPARISON: none FINDINGS: Heart size is normal. Aorta is tortuous. The lungs are clear. No pleural effusion. Bones and soft tissues are normal. IMPRESSION: No acute pathology. THIS DOCUMENT HAS BEEN ELECTRONICALLY SIGNED 12/06/16 00:15 Pt had an allergic reaction to the zithromax IV, so I will treat with levaquin IV. Pt mentions that he went to Dr. Juan Yen who intrumented his penis and rectum in an effort to examine patient's prostate yesterday. Pt is afebrile and is unlikely septic secondary to the instrumentation, however blood cultures are pending. 12/06/16 03:58 [facility]'s PMD [facility] he is aware of the patient. I will admit for pneumonia/SOB/ elevated WBC count. Further eval and CT chest to be done on admission. <Lucinda Arguello - Last Filed: 12/06/16 03:59> *DC/Admit/Observation/Transfer - Attestations Scribe Attestion: 12/05/16 21:32 Documentation prepared by LORAINE Stanley, acting as nurses medical assistants phlebotomists for Lucinda Arguello MD. <Consuelo Cartagena - Last Filed: 12/05/16 21:31> - Discharge Dispostion Admit: Yes <Lucinda Arguello - Last Filed: 12/06/16 03:59> Diagnosis at time of Disposition: Acute exacerbation of chronic obstructive pulmonary disease (COPD) - Discharge Dispostion Condition at time of disposition: Guarded - Referrals
[2016-12-05] MEDS ORDERED: SODIUM CHLORIDE 0.9% 1000 ML INFUS.BAG IV ONE (21:22)
[2016-12-05 21:24] LABS: MCH 28.1 pg (25.7-33.7); MCHC 32.6 g/dl (32.0-35.9); MEAN CELL VOLUME 86.2 fl (80-96); MEAN PLT VOLUME 8.2 fl (7.5-11.1); PLATELET COUNT 267 K/MM3 (134-434); WHITE BLOOD COUNT 22.2 K/mm3 (4.0-10.0)
[2016-12-05 21:42] LABS: INR 1.36 (0.82-1.09)
[2016-12-05 21:55] LABS: ALBUMIN 3.8 g/dl (3.4-5.0); ANION GAP 11 (8-16); CALCIUM 9.5 mg/dL (8.5-10.1); CO2 22 mmol/L (21-32); GLUCOSE,RANDOM 175 mg/dL (74-106); SGOT/AST 16 U/L (15-37); SGPT/ALT 26 U/L (12-78)
[2016-12-05 22:00] LABS: ALK PHOS 69 U/L (45-117); CREATININE 1.2 mg/dL (0.7-1.3); TOT PROT 7.4 g/dl (6.4-8.2); TROPONIN I < 0.02 ng/ml (0.00-0.05)
[2016-12-05 22:10] LABS: PLATELET ESTIMATE ADEQUATE (NORMAL)
[2016-12-05] MEDS ORDERED: FUROSEMIDE 40 MG/4 ML INJECTABLE VIAL IVPUSH ONE (22:36)
[2016-12-05] MEDS ORDERED: CEFTRIAXONE 1 GM in DEXTROSE 5%-WATER - 50 ML IVPB ONE (22:44)
[2016-12-05] MEDS ORDERED: AZITHROMYCIN IVPB 500 MG in DEXTROSE 5%-WATER - 250 ML IVPB ONE (22:44)
[2016-12-05] MEDS ORDERED: AZITHROMYCIN IVPB 250 ML IVPB ONE (23:10)
[2016-12-05] MEDS ORDERED: CEFTRIAXONE 50 ML ONE (23:10)
[2016-12-05 23:52] LABS: URINE APPEARANCE CLEAR; URINE BILIRUBIN NEGATIVE (NEGATIVE); URINE BLOOD 1+ (NEGATIVE); URINE COLOR LTYELLOW; URINE GLUCOSE (UA) NEGATIVE (NEGATIVE); URINE KETONE TRACE (NEGATIVE); URINE NITRITE NEGATIVE (NEGATIVE); URINE PROTEIN NEGATIVE (NEGATIVE); URINE UROBILINOGEN NEGATIVE mg/dL (0.2-1.0)
[2016-12-05 23:55] LABS: URINE LEUK ESTERASE 1+ (NEGATIVE)
[2016-12-05 23:56] LABS: URINE BACTERIA FEW /hpf (NONE SEEN); URINE MUCUS FEW; URINE RBC 2 /hpf (0-3); URINE WBC 31 /hpf (3-5)
[2016-12-06] MEDS ORDERED: LEVOFLOXACIN 500 MG IVPB 100 ML IVPB ONE ×2 (00:14→00:26)
[2016-12-06 05:42] VITALS: BMI 31.4
[2016-12-06] MEDS ORDERED: ACETAMINOPHEN 325 MG TABLET (FP) PO PRN (07:34)
[2016-12-06] MEDS ORDERED: methylPREDNISolone NA SUCC 40 MG/1 ML VIAL IVPB SCH (09:00)
--- NOTE | 2016-12-06 09:11 | EKG ---
Test Reason : Blood Pressure : / mmHG Vent. Rate : 092 BPM Atrial Rate : 092 BPM P-R Int : 158 ms QRS Dur : 106 ms QT Int : 380 ms P-R-T Axes : 045 -09 032 degrees QTc Int : 469 ms NORMAL SINUS RHYTHM WITH SINUS ARRHYTHMIA INCOMPLETE RIGHT BUNDLE BRANCH BLOCK NONSPECIFIC T WAVE ABNORMALITY PROLONGED QT ABNORMAL ECG WHEN COMPARED WITH ECG OF 05-DEC-2016 21:10, NO SIGNIFICANT CHANGE WAS FOUND Confirmed by HELDER MYERS, LIZ ([id number]) on 12/06/2016 9:11:22 AM Referred By: Confirmed By:LIZ PENDLETON MD
--- NOTE | 2016-12-06 09:12 | EKG ---
Test Reason : Blood Pressure : / mmHG Vent. Rate : 103 BPM Atrial Rate : 103 BPM P-R Int : 158 ms QRS Dur : 104 ms QT Int : 356 ms P-R-T Axes : 043 -14 037 degrees QTc Int : 466 ms SINUS TACHYCARDIA INCOMPLETE RIGHT BUNDLE BRANCH BLOCK BORDERLINE ECG WHEN COMPARED WITH ECG OF 01-OCT-2016 16:55, NO SIGNIFICANT CHANGE WAS FOUND Confirmed by LIZ PENDLETON MD ([id number]) on 12/06/2016 9:11:58 AM Referred By: Confirmed By:LIZ PENDLETON MD
--- NOTE | 2016-12-06 09:12 | EKG ---
Test Reason : Blood Pressure : / mmHG Vent. Rate : 078 BPM Atrial Rate : 078 BPM P-R Int : 172 ms QRS Dur : 108 ms QT Int : 408 ms P-R-T Axes : 062 007 040 degrees QTc Int : 465 ms NORMAL SINUS RHYTHM INCREASED R/S RATIO IN V1, CONSIDER EARLY TRANSITION OR POSTERIOR INFARCT ABNORMAL ECG WHEN COMPARED WITH ECG OF 06-DEC-2016 00:32, INCOMPLETE RIGHT BUNDLE BRANCH BLOCK IS NO LONGER PRESENT Confirmed by HELDER MYERS, LIZ ([id number]) on 12/06/2016 9:12:08 AM Referred By: CAROLYN STANTON Confirmed By:LIZ PENDLETON MD
[2016-12-06] MEDS ORDERED: PT OWN MED DRAWER 7, Y5N ONE ×2 (09:36→21:19)
[2016-12-06] MEDS: HEPARIN NA (PORCINE) 5,000 UNITS/ML 1ML VIAL SQ SCH ×2 (09:47→21:22)
[2016-12-06] MEDS: FUROSEMIDE 40 MG TABLET (FP) PO SCH (09:48)
[2016-12-06] MEDS: RANITIDINE HCL 150 MG TABLET (FP) PO SCH (09:48)
[2016-12-06] MEDS: ASPIRIN 81 MG CHEWABLE TABLETS PO SCH (09:48)
[2016-12-06] MEDS: TAMSULOSIN HCL 0.4 MG CAP.ER.24H (FP) PO SCH (09:48)
[2016-12-06] MEDS: BUDESONIDE/FORMETEROL FUMARATE 80/4.5 mcg INHALER IH SCH ×2 (09:51→21:21)
[2016-12-06] MEDS ORDERED: AZITHROMYCIN IVPB 250 ML IVPB SCH (10:00)
[2016-12-06] MEDS ORDERED: cefTRIAXone SODIUM 1 GM VIAL ONE (10:28)
[2016-12-06] MEDS ORDERED: DEXTROSE 5%-WATER - 50 ML IVPB ONE (10:28)
[2016-12-06] MEDS: CEFTRIAXONE 1 GM in DEXTROSE 5%-WATER - 50 ML IVPB SCH (10:36)
--- NOTE | 2016-12-06 11:30 | CON.PULM ---
Consult Consult Specialty:: PUL/CCM Referred by:: KYLE Reason for Consultation:: SOB - History of Present Illness Chief Complaint: Urinary symptoms / SOB History of Present Illness: 71 M, well known to me from previous admissions. History of COPD from previous smoking history (quit 20 years ago), HTN, and diabetes. Had recent instrumentation of his prostate. Reports some transient increase in his cough and SOB. No fever or chills. No CP. No hemoptysis. Patient also reports that he ran out of his Lasix, but he has not noticed any leg edema or weight gain. CXR : No acute pathology CT last 2016 : stable subcentimeter pulmonary nodules since 2011. - History Source History Provided By: Patient Limitations to Obtaining History: No Limitations - Past Medical History Cardio/Vascular: Yes: HTN Pulmonary: Yes: Asthma, COPD Gastrointestinal: Yes: Ulcerative Colitis (PULM/CCM ) Endocrine: Yes: Diabetes Mellitus - Alcohol/Substance Use Hx Alcohol Use: No - Smoking History Smoking history: Former smoker Have you smoked in the past 12 months: No Aproximately how many cigarettes per day: 0 If you are a former smoker, when did you quit?: 2001 Home Medications - Allergies Allergies/Adverse Reactions: Allergies Allergy/AdvReac Type Severity Reaction Status Date / Time ibuprofen [From Advil] Allergy Unknown Vomiting Verified 12/05/16 20:25 azithromycin [From Zithromax] AdvReac Mild Vomiting Verified 12/06/16 00:32 - Home Medications Home Medications: Ambulatory Orders Aspirin [ASA -] 81 mg PO DAILY #0 tab.chew 07/31/14 Fluticasone Prop 0.05% Nasal [Flonase -] 1 - 2 spray NS BID 12/24/15 Albuterol Sulfate Inhaler - [Ventolin HFA Inhaler -] 1 - 2 inh PO Q4H PRN #1 inhaler 01/11/16 Budesonide/Formeterol Fumarate [SYMBICORT 80/4.5mcg -] 2 puff IH BID inhaler Albuterol 0.083% Nebulizer Jacki [Ventolin 0.083% Nebulizer Soln -] 1 neb NEB Q4H PRN #30 vial 07/24/16 Acetaminophen [Tylenol .Regular Strength -] 650 mg PO Q6H PRN #0 tablet Albuterol 2.5/Ipratropium 0.5 [Duoneb -] 1 amp NEB Q6H PRN #0 amp 10/04/16 Furosemide [Lasix -] 40 mg PO DAILY tablet 10/04/16 Montelukast Na [Singulair -] 10 mg PO HS tablet 10/04/16 Famotidine [Pepcid -] 20 mg PO DAILY 12/05/16 Prednisone [Deltasone -] 10 mg PO DAILY 12/05/16 Rosuvastatin [Crestor -] 10 mg PO DAILY 12/05/16 Tamsulosin HCl [Flomax] 0.4 mg PO DAILY 12/05/16 Tiotropium Br/Olodaterol HCl [Stiolto Respimat Inhal [place]] 4 gm IH DAILY Review of Systems - Review of Systems Constitutional: denies: Chills, Fever, Night Sweats Eyes: reports: No Symptoms HENT: reports: No Symptoms Neck: reports: No Symptoms Cardiovascular: reports: Shortness of Breath. denies: Chest Pain, Edema, Palpitations Respiratory: reports: Cough, Snoring, SOB, SOB on Exertion. denies: Hemoptysis , Wheezing Gastrointestinal: reports: No Symptoms Genitourinary: reports: Dysuria. denies: Burning, Discharge, Hematuria, Testicular Pain Breasts: reports: No Symptoms Reported Musculoskeletal: reports: No Symptoms Integumentary: reports: No Symptoms Neurological: reports: No Symptoms Endocrine: reports: No Symptoms Hematology/Lymphatic: reports: No Symptoms Psychiatric: reports: No Symptoms Physical Exam Vital Sings: Vital Signs Temperature 98.0 F 12/06/16 07:35 Pulse Rate 70 12/06/16 07:35 Respiratory Rate 20 12/06/16 07:35 Blood Pressure 123/67 12/06/16 07:35 O2 Sat by Pulse Oximetry (%) 97 12/06/16 09:00 Constitutional: Yes: Well Nourished, No Distress, Calm Eyes: Yes: Conjunctiva Clear, EOM Intact HENT: Yes: Atraumatic, Normocephalic Neck: Yes: Supple, Trachea Midline Cardiovascular: Yes: Regular Rate and Rhythm Respiratory: Yes: Cough, Diminished, On Nasal O2. No: Accessory Muscle Use, Rales, Rhonchi, Stridor, Tachypnea, Wheezes ...Inspection: Yes: WNL ...Clubbing: No Gastrointestinal: Yes: Normal Bowel Sounds, Soft, Abdomen, Obese Renal/: Yes: WNL Breast(s): Yes: WNL Musculoskeletal: Yes: WNL Extremities: Yes: WNL Edema: No Peripheral Pulses WNL: Yes Integumentary: Yes: WNL Neurological: Yes: WNL, Alert, Oriented ...Motor Strength: WNL Psychiatric: Yes: WNL, Alert, Oriented Imaging - Results Chest X-ray: Report Reviewed, Image Reviewed Problem List - Problems (1) Asthma Code(s): J45.909 - UNSPECIFIED ASTHMA, UNCOMPLICATED Qualifiers: Asthma severity: moderate persistent Asthma complication type: with acute exacerbation Qualified Code(s): J45.41 - Moderate persistent asthma with (acute) exacerbation (2) CHF (congestive heart failure) Code(s): I50.9 - HEART FAILURE, UNSPECIFIED (3) COPD (chronic obstructive pulmonary disease) Code(s): J44.9 - CHRONIC OBSTRUCTIVE PULMONARY DISEASE, UNSPECIFIED Qualifiers : COPD type: COPD with acute exacerbation Qualified Code(s): J44.1 - Chronic obstructive pulmonary disease with (acute) exacerbation (4) DM (diabetes mellitus) Code(s): E11.9 - TYPE 2 DIABETES MELLITUS WITHOUT COMPLICATIONS Qualifiers: Diabetes mellitus complication status: with ophthalmic complications (5) Dyspnea Code(s): R06.00 - DYSPNEA, UNSPECIFIED (6) HTN (hypertension) Code(s): I10 - ESSENTIAL (PRIMARY) HYPERTENSION Qualifiers: Hypertension type: unspecified secondary hypertension Qualified Code (s): I15.9 - Secondary hypertension, unspecified; I15 - Secondary hypertension Assessment/Plan Monitor off Medrol -> short prednisone course O2 as needed ABX for coverage BD TX On discharge Symbicort should be the 160/4.5 dose BD TX PRN Continued smoking cessation discussed Will follow Thank you Dr Carr
--- NOTE | 2016-12-06 12:07 | PN ---
Progress Note, Physician Chief Complaint: ID Full note dictated Recent urinary instrumentation December 04 NO fever - Current Medication List Current Medications: Active Medications Acetaminophen (Tylenol -) 650 mg PO Q6H PRN PRN Reason: FEVER OR PAIN Albuterol/Ipratropium (Duoneb -) 1 amp NEB Q6H PRN PRN Reason: SHORTNESS OF BREATH Aspirin (Asa -) 81 mg PO DAILY [facility] Last Admin: 12/06/16 09:48 Dose: 81 mg Budesonide/Formoterol Fumarate (Symbicort 80/4.5mcg -) 2 puff IH BID [facility] Last Admin: 12/06/16 09:51 Dose: 2 puff Furosemide (Lasix -) 40 mg PO DAILY [facility] Last Admin: 12/06/16 09:48 Dose: 40 mg Heparin Sodium (Porcine) (Heparin -) 5,000 unit SQ BID [facility] Last Admin: 12/06/16 09:47 Dose: 5,000 unit Ceftriaxone Sodium 1 gm/ (Dextrose) 50 mls @ 100 mls/hr IVPB DAILY [facility] Last Admin: 12/06/16 10:36 Dose: 100 mls/hr Montelukast Sodium (Singulair -) 10 mg PO HS [facility] Prednisone (Deltasone -) 40 mg PO DAILY [facility] Stop: 12/09/16 10:01 Ranitidine HCl (Zantac -) 150 mg PO DAILY [facility] Last Admin: 12/06/16 09:48 Dose: 150 mg Rosuvastatin Calcium (Crestor -) 10 mg PO HS [facility] Tamsulosin HCl (Flomax -) 0.4 mg PO DAILY@0830 [facility] Last Admin: 12/06/16 09:48 Dose: 0.4 mg - Objective Vital Signs: Vital Signs Temperature 98.0 F 12/06/16 07:35 Pulse Rate 70 12/06/16 07:35 Respiratory Rate 20 12/06/16 07:35 Blood Pressure 123/67 12/06/16 07:35 O2 Sat by Pulse Oximetry (%) 97 12/06/16 09:00 Cardiovascular: Yes: S1, S2 Respiratory: Yes: WNL, Regular, CTA Bilaterally, Wheezes Gastrointestinal: Yes: Soft Labs: INR, PTT INR 1.36 (0.82-1.09) H 12/05/16 21:15 Problem List - Problems (1) UTI (urinary tract infection) Code(s): N39.0 - URINARY TRACT INFECTION, SITE NOT SPECIFIED Assessment/Plan Laboratory Tests 12/05/16 12/05/16 12/05/16 21:15 21:15 23:23 WBC 22.2 H D Hgb 14.3 Hct 43.9 Plt Count 267 Neutrophils % 91.0 H D Lymphocytes % 1.0 L D Monocytes % 5.0 Band Neutrophils 3.0 D Anion Gap 11 Creatinine 1.2 Urine WBC 31 Assessment COPD exacerbation UTI DM WBC ? steroids Plan Continue Ceftriaxone Notify urology Urine c/s Dontrell MYERS
[2016-12-06] MEDS: predniSONE 20 MG TABLET (UD) PO SCH (12:55)
--- NOTE | 2016-12-06 15:06 | CON.CARD ---
Consult Consult Specialty:: Cardiology Referred by:: Dr Gaytan Reason for Consultation:: sob, chest tightness - History of Present Illness Chief Complaint: chest tightness, sob History of Present Illness: 71 year old male, with significant past medical history of COPD, HTN, and diabetes, who presents today complaining of shortness of breath and chest tightness for one day while off of medications, no orthopnea, pnd or edema. Ran out of lasix, baseline poor exercise tolerance. Echo 10/04/16 tds normal EF min mr/PI - History Source History Provided By: Patient, Medical Record - Past Medical History Cardio/Vascular: Yes: HTN Pulmonary: Yes: Asthma, COPD Gastrointestinal: Yes: Ulcerative Colitis (PULM/CCM ) Endocrine: Yes: Diabetes Mellitus - Alcohol/Substance Use Hx Alcohol Use: No - Smoking History Smoking history: Former smoker Have you smoked in the past 12 months: No Aproximately how many cigarettes per day: 0 If you are a former smoker, when did you quit?: 2001 Home Medications - Allergies Allergies/Adverse Reactions: Allergies Allergy/AdvReac Type Severity Reaction Status Date / Time ibuprofen [From Advil] Allergy Unknown Vomiting Verified 12/05/16 20:25 azithromycin [From Zithromax] AdvReac Mild Vomiting Verified 12/06/16 00:32 - Home Medications Home Medications: Ambulatory Orders Aspirin [ASA -] 81 mg PO DAILY #0 tab.chew 07/31/14 Fluticasone Prop 0.05% Nasal [Flonase -] 1 - 2 spray NS BID 12/24/15 Albuterol Sulfate Inhaler - [Ventolin HFA Inhaler -] 1 - 2 inh PO Q4H PRN #1 inhaler 01/11/16 Budesonide/Formeterol Fumarate [SYMBICORT 80/4.5mcg -] 2 puff IH BID inhaler Albuterol 0.083% Nebulizer Jacki [Ventolin 0.083% Nebulizer Soln -] 1 neb NEB Q4H PRN #30 vial 07/24/16 Acetaminophen [Tylenol .Regular Strength -] 650 mg PO Q6H PRN #0 tablet Albuterol 2.5/Ipratropium 0.5 [Duoneb -] 1 amp NEB Q6H PRN #0 amp 10/04/16 Furosemide [Lasix -] 40 mg PO DAILY tablet 10/04/16 Montelukast Na [Singulair -] 10 mg PO HS tablet 10/04/16 Famotidine [Pepcid -] 20 mg PO DAILY 12/05/16 Prednisone [Deltasone -] 10 mg PO DAILY 12/05/16 Rosuvastatin [Crestor -] 10 mg PO DAILY 12/05/16 Tamsulosin HCl [Flomax] 0.4 mg PO DAILY 12/05/16 Tiotropium Br/Olodaterol HCl [Stiolto Respimat Inhal [place]] 4 gm IH DAILY Review of Systems - Review of Systems Constitutional: reports: Weakness Eyes: reports: No Symptoms HENT: reports: No Symptoms Neck: reports: No Symptoms Cardiovascular: reports: Shortness of Breath Respiratory: reports: Cough Gastrointestinal: reports: No Symptoms Musculoskeletal: reports: No Symptoms Vital Signs: Vital Signs Temperature 98.0 F 12/06/16 14:00 Pulse Rate 81 12/06/16 14:00 Respiratory Rate 22 12/06/16 14:00 Blood Pressure 142/76 12/06/16 14:00 O2 Sat by Pulse Oximetry (%) 98 12/06/16 09:00 Constitutional: Yes: No Distress, Calm Eyes: Yes: Conjunctiva Clear, EOM Intact HENT: Yes: Atraumatic, Normocephalic Neck: Yes: Supple, Trachea Midline Respiratory: Yes: CTA Bilaterally Gastrointestinal: Yes: Normal Bowel Sounds Cardiovascular: Yes: Regular Rate and Rhythm JVD: No Carotid Bruit: No PMI: Non-Displaced Heart Sounds: Yes: S1, S2 Edema: No Peripheral Pulses WNL: Yes - Other Data Labs, Other Data: INR, PTT INR 1.36 (0.82-1.09) H 12/05/16 21:15 Troponin, BNP 12/06/16 08:00 Troponin I < 0.02 Troponin, BNP 12/06/16 08:00 Troponin I < 0.02 nsr, early transition Echo: Report Reviewed (10/04/16 nlef) Ejection Fraction %: LVEF > or = 40 % Imaging - Results Chest X-ray: Report Reviewed (dirk) Problem List - Problems (1) Shortness of breath Assessment/Plan: no evidence of chf on exam. pro bnp and cxr normal. continue outpatient lasix. pulm tx at this point. no further cardiac workup needed. will see prn. Code(s): R06.02 - SHORTNESS OF BREATH
--- NOTE | 2016-12-06 16:22 | CONS ---
DATE OF CONSULTATION: HISTORY: This is a 71-year-old [place] admitted with the chief complaint of shortness of breath with chest tightness. He is a former smoker and has a history of known COPD for which he is followed by Dr. Gomez. Two days prior to admission, he underwent what may have been a cystoscopy as an outpatient with Dr. Juan Yen. He is admitted now for shortness of breath, and I am asked to see him regarding antibiotic management. He had no fever or chills and denies any gross hematuria. He was apparently given a dose of azithromycin in the emergency room, which apparently caused what was described as a severe reaction characterized by nausea and vomiting, but he had no rash or signs of anaphylaxis. PAST MEDICAL HISTORY: Includes COPD, hypertension, diabetes mellitus, and BPH. CURRENT MEDICATIONS: Aspirin, fluticasone, albuterol, Symbicort, Lasix, Singulair, Pepcid, Crestor. ALLERGIES: IBUPROFEN and AZITHROMYCIN. SOCIAL HISTORY: [place] . Has been living with his significant other for 29 years. Recently . 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 No pets. No unusual hobbies or recent travel. Former smoker. Gave this up many years ago. No history of alcohol or current substance abuse. FAMILY HISTORY: Reviewed. Noncontributory. REVIEW OF SYSTEMS: Respiratory: Positive shortness of breath now improved. No cough, sputum production, hemoptysis. Cardiac: No chest pain, palpitations, syncope. Gastrointestinal: No nausea, vomiting, diarrhea, weight loss. Genitourinary: Denies gross hematuria, dysuria. PHYSICAL EXAMINATION: General: He is an alert male in no acute distress. Vital Signs: Temperature 98, pulse 70, blood pressure 123/67, respirations 20. Neck: Supple. Lungs: Breath sounds diminished. Positive wheezing. Heart: S1, S2. Regular rhythm. No audible murmur. Abdomen: Normoactive bowel sounds. Soft, nontender. Extremities: No clubbing, cyanosis, or edema. The white count is 22.2, hemoglobin 14.3, platelets 267, 91% polys, 1 lymphocyte, 5 monocytes, 3 bands. INR 1.36, BUN 15, creatinine 1.2, glucose 175. Liver enzymes within normal limits. Urinalysis with 31 WBCs, 2 RBCs, 1+ leukocyte esterase. Blood cultures thus far no growth. Chest x-ray, no acute infiltrate. ASSESSMENT: A 71-year-old male with known chronic obstructive pulmonary disease history admitted with exacerbation of chronic obstructive pulmonary disease, known diabetic hypertensive with a history of benign prostatic hypertrophy status post possible cystoscopy 24 hours prior to admission. Was on an oral antibiotic, per his urologist, but he does not know the name. At this point, we will treat him for urinary tract infection with ceftriaxone 1 g IV q.24 hours with continuation of steroids, prednisone 40 mg daily as per Pulmonary. Reaction to AZITHROMYCIN represents a side effect but not true allergy. Human immunodeficiency virus testing was discussed with the patient who declined noting that he has been human immunodeficiency virus tested negative recently. We will obtain a hepatitis C serology. JENNIFER NAYLOR M.D. HELIO/[id number]
--- NOTE | 2016-12-06 17:22 | HP ---
Admitting History and Physical - Primary Care Physician PCP: David Gaytan - Admission Chief Complaint: DYSPNEA History of Present Illness: The patient is a 71 year old male, with significant past medical history of COPD , HTN, and diabetes, who presents today complaining of shortness of breath and chest tightness starting this morning. The patient states that the SOB began while laying down and progressively worsened throughout the day. He notes that he has not had air conditioning in his home recently. He also notes that he ran out of Lasix 2 days ago. He reports that this is not the worst exacerbation of his COPD, but wanted to nip the symptoms in the bud before it got any worse. Denies chest pain. Denies cough. Denies leg swelling. Denies fever, chills, nausea, vomiting, abdominal pain. History Source: Patient - Past Medical History Cardiovascular: Yes: HTN Pulmonary: Yes: Asthma, COPD Gastrointestinal: Yes: Ulcerative Colitis (PULM/CCM ) Endocrine: Yes: Diabetes Mellitus - Smoking History Smoking history: Former smoker Have you smoked in the past 12 months: No Aproximately how many cigarettes per day: 0 If you are a former smoker, when did you quit?: 2001 - Alcohol/Substance Use Hx Alcohol Use: No Home Medications - Allergies Allergies/Adverse Reactions: Allergies Allergy/AdvReac Type Severity Reaction Status Date / Time ibuprofen [From Advil] Allergy Unknown Vomiting Verified 12/05/16 20:25 azithromycin [From Zithromax] AdvReac Mild Vomiting Verified 12/06/16 00:32 - Home Medications Home Medications: Ambulatory Orders Aspirin [ASA -] 81 mg PO DAILY #0 tab.chew 07/31/14 Fluticasone Prop 0.05% Nasal [Flonase -] 1 - 2 spray NS BID 12/24/15 Albuterol Sulfate Inhaler - [Ventolin HFA Inhaler -] 1 - 2 inh PO Q4H PRN #1 inhaler 01/11/16 Budesonide/Formeterol Fumarate [SYMBICORT 80/4.5mcg -] 2 puff IH BID inhaler Albuterol 0.083% Nebulizer Jacki [Ventolin 0.083% Nebulizer Soln -] 1 neb NEB Q4H PRN #30 vial 07/24/16 Acetaminophen [Tylenol .Regular Strength -] 650 mg PO Q6H PRN #0 tablet Albuterol 2.5/Ipratropium 0.5 [Duoneb -] 1 amp NEB Q6H PRN #0 amp 10/04/16 Furosemide [Lasix -] 40 mg PO DAILY tablet 10/04/16 Montelukast Na [Singulair -] 10 mg PO HS tablet 10/04/16 Famotidine [Pepcid -] 20 mg PO DAILY 12/05/16 Prednisone [Deltasone -] 10 mg PO DAILY 12/05/16 Rosuvastatin [Crestor -] 10 mg PO DAILY 12/05/16 Tamsulosin HCl [Flomax] 0.4 mg PO DAILY 12/05/16 Tiotropium Br/Olodaterol HCl [Stiolto Respimat Inhal [place]] 4 gm IH DAILY Review of Systems - Review of Systems Constitutional: reports: Loss of Appetite, Weakness Eyes: reports: No Symptoms HENT: reports: No Symptoms Neck: reports: No Symptoms Cardiovascular: reports: No Symptoms Respiratory: reports: SOB, SOB on Exertion, Wheezing Gastrointestinal: reports: No Symptoms Genitourinary: reports: No Symptoms Musculoskeletal: reports: No Symptoms Integumentary: reports: No Symptoms Neurological: reports: No Symptoms Endocrine: reports: No Symptoms Hematology/Lymphatic: reports: No Symptoms Psychiatric: reports: No Symptoms Physical Examination Vital Signs: Vital Signs Temperature 98.0 F 12/06/16 14:00 Pulse Rate 81 12/06/16 14:00 Respiratory Rate 22 12/06/16 14:00 Blood Pressure 142/76 12/06/16 14:00 O2 Sat by Pulse Oximetry (%) 98 12/06/16 09:00 Constitutional: Yes: Moderate Distress Eyes: Yes: WNL HENT: Yes: WNL Neck: Yes: WNL Cardiovascular: Yes: WNL Respiratory: Yes: Diminished, On Nasal O2, SOB Gastrointestinal: Yes: WNL Renal/: Yes: WNL Musculoskeletal: Yes: WNL Extremities: Yes: WNL Edema: No Peripheral Pulses WNL: Yes Integumentary: Yes: WNL Wound/Incision: Yes: Clean/Dry Neurological: Yes: WNL ...Motor Strength: WNL Psychiatric: Yes: WNL Problem List - Problems (1) Acute exacerbation of chronic obstructive pulmonary disease (COPD) Code(s): J44.1 - CHRONIC OBSTRUCTIVE PULMONARY DISEASE W (ACUTE) EXACERBATION (2) UTI (urinary tract infection) Code(s): N39.0 - URINARY TRACT INFECTION, SITE NOT SPECIFIED Qualifiers: Urinary tract infection type: acute cystitis (3) Acute exacerbation of CHF (congestive heart failure) Code(s): I50.9 - HEART FAILURE, UNSPECIFIED Qualifiers: Congestive heart failure type: unspecified congestive heart failure type Qualified Code(s): I50.9 - Heart failure, unspecified (4) COPD (chronic obstructive pulmonary disease) Code(s): J44.9 - CHRONIC OBSTRUCTIVE PULMONARY DISEASE, UNSPECIFIED Qualifiers : COPD type: COPD with acute exacerbation Qualified Code(s): J44.1 - Chronic obstructive pulmonary disease with (acute) exacerbation (5) DM (diabetes mellitus) Code(s): E11.9 - TYPE 2 DIABETES MELLITUS WITHOUT COMPLICATIONS Qualifiers: Diabetes mellitus complication status: with ophthalmic complications Assessment/Plan IV ABX NEBS LASIX CARDIOLOGY AND PULMONARY EVAL WEIGHTS DAILY LOW SALT AD DIET
[2016-12-06] MEDS ORDERED: INSULIN (NOVOLOG) ASPART 100 UNITS/ML 10ML VIAL ONE (21:18)
[2016-12-06] MEDS: MONTELUKAST NA 10 MG TABLET PO SCH (21:22)
[2016-12-06] MEDS: ROSUVASTATIN CA 10 MG TABLET (FP) PO SCH (21:22)
[2016-12-06] MEDS: INSULIN SLIDING SCALE (NOVOLOG) 1 VIAL SQ SCH (21:22)
[2016-12-06] MEDS: ALBUTEROL SO4 2.5/IPRATROPIUM 0.5 INH SOL 3 ML VIAL.NEB. NEB PRN (22:00)
[2016-12-07] MEDS: INSULIN SLIDING SCALE (NOVOLOG) 1 VIAL SQ SCH ×4 (06:03→21:10)
[2016-12-07] MEDS: ALBUTEROL SO4 2.5/IPRATROPIUM 0.5 INH SOL 3 ML VIAL.NEB. NEB PRN (06:44)
[2016-12-07 07:14] LABS: BASOPHIL 0.3 % (0-2.0); MCH 28.7 pg (25.7-33.7); MCHC 33.3 g/dl (32.0-35.9); MEAN CELL VOLUME 86.1 fl (80-96); MEAN PLT VOLUME 8.8 fl (7.5-11.1); NEUTROPHILS 86.1 % (42.8-82.8); PLATELET COUNT 287 K/MM3 (134-434); RDW 14.1 % (11.9-15.9); WHITE BLOOD COUNT 26.4 K/mm3 (4.0-10.0)
[2016-12-07 07:33] LABS: ALBUMIN 3.5 g/dl (3.4-5.0); ANION GAP 9 (8-16); BILIRUBIN,TOTAL 0.3 mg/dL (0.2-1.0); CALCIUM 9.8 mg/dL (8.5-10.1); CO2 24 mmol/L (21-32); GLUCOSE,RANDOM 133 mg/dL (74-106); SGOT/AST 12 U/L (15-37); SGPT/ALT 23 U/L (12-78); TOT PROT 7.3 g/dl (6.4-8.2)
[2016-12-07 07:34] LABS: ALK PHOS 68 U/L (45-117)
[2016-12-07] MEDS: TAMSULOSIN HCL 0.4 MG CAP.ER.24H (FP) PO SCH (08:21)
[2016-12-07] MEDS ORDERED: cefTRIAXone SODIUM 1 GM VIAL ONE (10:02)
[2016-12-07] MEDS ORDERED: DEXTROSE 5%-WATER - 50 ML IVPB ONE (10:02)
[2016-12-07] MEDS: CEFTRIAXONE 1 GM in DEXTROSE 5%-WATER - 50 ML IVPB SCH (10:32)
[2016-12-07] MEDS: RANITIDINE HCL 150 MG TABLET (FP) PO SCH (10:36)
[2016-12-07] MEDS: ASPIRIN 81 MG CHEWABLE TABLETS PO SCH (10:36)
[2016-12-07] MEDS: FUROSEMIDE 40 MG TABLET (FP) PO SCH (10:36)
[2016-12-07] MEDS: HEPARIN NA (PORCINE) 5,000 UNITS/ML 1ML VIAL SQ SCH ×2 (10:37→21:10)
[2016-12-07] MEDS: BUDESONIDE/FORMETEROL FUMARATE 80/4.5 mcg INHALER IH SCH ×2 (10:37→21:14)
[2016-12-07] MEDS: predniSONE 20 MG TABLET (UD) PO SCH (10:37)
--- NOTE | 2016-12-07 10:52 | PN ---
Progress Note (short form) - Note Progress Note: Breathing feels ok today. Comfortable on RA. No CP. Minimal intermittent dry cough. Intake & Output 12/04/16 12/05/16 12/06/16 12/07/16 23:59 23:59 23:59 23:59 Intake Total 700 200 Output Total 700 Balance 0 200 Weight 240 lb 244 lb 7 oz 247 lb 4 oz Last Vital Signs Temp Pulse Resp BP Pulse Ox 98.2 F 61 20 125/63 98 12/07/16 06:12 12/07/16 06:12 12/07/16 06:12 12/07/16 06:12 12/06/16 21:00 Active Medications Acetaminophen (Tylenol -) 650 mg PO Q6H PRN PRN Reason: FEVER OR PAIN Albuterol/Ipratropium (Duoneb -) 1 amp NEB Q6H PRN PRN Reason: SHORTNESS OF BREATH Last Admin: 12/07/16 06:44 Dose: 1 amp Aspirin (Asa -) 81 mg PO DAILY [facility] Last Admin: 12/07/16 10:36 Dose: 81 mg Budesonide/Formoterol Fumarate (Symbicort 80/4.5mcg -) 2 puff IH BID [facility] Last Admin: 12/07/16 10:37 Dose: 2 puff Furosemide (Lasix -) 40 mg PO DAILY [facility] Last Admin: 12/07/16 10:36 Dose: 40 mg Heparin Sodium (Porcine) (Heparin -) 5,000 unit SQ BID [facility] Last Admin: 12/07/16 10:37 Dose: 5,000 unit Ceftriaxone Sodium 1 gm/ (Dextrose) 50 mls @ 100 mls/hr IVPB DAILY [facility] Last Admin: 12/07/16 10:32 Dose: 100 mls/hr Insulin Aspart (Novolog Vial Sliding Scale -) 1 vial SQ ACHS BRIT PRN Reason: Protocol Last Admin: 12/07/16 06:03 Dose: Not Given Montelukast Sodium (Singulair -) 10 mg PO HS [facility] Last Admin: 12/06/16 21:22 Dose: 10 mg Prednisone (Deltasone -) 40 mg PO DAILY [facility] Stop: 12/09/16 10:01 Last Admin: 12/07/16 10:37 Dose: 40 mg Ranitidine HCl (Zantac -) 150 mg PO DAILY [facility] Last Admin: 12/07/16 10:36 Dose: 150 mg Rosuvastatin Calcium (Crestor -) 10 mg PO HS [facility] Last Admin: 12/06/16 21:22 Dose: 10 mg Tamsulosin HCl (Flomax -) 0.4 mg PO DAILY@0830 [facility] Last Admin: 12/07/16 08:21 Dose: 0.4 mg Constitutional: Yes: Well Nourished, No Distress, Calm Eyes: Yes: Conjunctiva Clear, EOM Intact HENT: Yes: Atraumatic, Normocephalic Neck: Yes: Supple, Trachea Midline Cardiovascular: Yes: Regular Rate and Rhythm Respiratory: Yes: Cough, Diminished, On Nasal O2. No: Accessory Muscle Use, Rales, Rhonchi, Stridor, Tachypnea, Wheezes ...Inspection: Yes: WNL ...Clubbing: No Gastrointestinal: Yes: Normal Bowel Sounds, Soft, Abdomen, Obese Renal/: Yes: WNL Breast(s): Yes: WNL Musculoskeletal: Yes: WNL Extremities: Yes: WNL Edema: No Peripheral Pulses WNL: Yes Integumentary: Yes: WNL Neurological: Yes: WNL, Alert, Oriented ...Motor Strength: WNL Psychiatric: Yes: WNL, Alert, Oriented Laboratory Results - last 24 hr 12/05/16 12/06/16 12/06/16 23:23 12:30 17:31 WBC RBC Hgb Hct MCV MCH MCHC RDW Plt Count MPV Neutrophils % Lymphocytes % Monocytes % Eosinophils % Basophils % Sodium Potassium Chloride Carbon Dioxide Anion Gap BUN Creatinine Creat Clearance w eGFR POC Glucometer 178 Random Glucose Calcium Total Bilirubin AST ALT Alkaline Phosphatase Total Protein Albumin Urine Color Ltyellow Urine Appearance Clear Urine pH 5.0 Ur Specific [place] 1.015 Urine Protein Negative Urine Glucose (UA) Negative Urine Ketones Trace H Urine Blood 1+ H Urine Nitrite Negative Urine Bilirubin Negative Urine Urobilinogen Negative Ur Leukocyte Esterase 1+ H Urine RBC 2 Urine WBC 31 Urine Bacteria Few Urine Mucus Few Hepatitis C Antibody <0.1 12/06/16 12/07/16 12/07/16 21:21 05:46 06:05 WBC 26.4 H RBC 5.12 Hgb 14.7 Hct 44.1 MCV 86.1 MCH 28.7 MCHC 33.3 RDW 14.1 Plt Count 287 MPV 8.8 Neutrophils % 86.1 H Lymphocytes % 7.4 L D Monocytes % 6.2 Eosinophils % 0.0 D Basophils % 0.3 Sodium Potassium Chloride Carbon Dioxide Anion Gap BUN Creatinine Creat Clearance w eGFR POC Glucometer 192 141 Random Glucose Calcium Total Bilirubin AST ALT Alkaline Phosphatase Total Protein Albumin Urine Color Urine Appearance Urine pH Ur Specific [place] Urine Protein Urine Glucose (UA) Urine Ketones Urine Blood Urine Nitrite Urine Bilirubin Urine Urobilinogen Ur Leukocyte Esterase Urine RBC Urine WBC Urine Bacteria Urine Mucus Hepatitis C Antibody 12/07/16 06:05 WBC RBC Hgb Hct MCV MCH MCHC RDW Plt Count MPV Neutrophils % Lymphocytes % Monocytes % Eosinophils % Basophils % Sodium 139 Potassium 4.1 Chloride 106 Carbon Dioxide 24 Anion Gap 9 BUN 18 Creatinine 1.0 Creat Clearance w eGFR > 60 POC Glucometer Random Glucose 133 H D Calcium 9.8 Total Bilirubin 0.3 D AST 12 L D ALT 23 Alkaline Phosphatase 68 Total Protein 7.3 Albumin 3.5 Urine Color Urine Appearance Urine pH Ur Specific [place] Urine Protein Urine Glucose (UA) Urine Ketones Urine Blood Urine Nitrite Urine Bilirubin Urine Urobilinogen Ur Leukocyte Esterase Urine RBC Urine WBC Urine Bacteria Urine Mucus Hepatitis C Antibody Problem List - Problems (1) Asthma Code(s): J45.909 - UNSPECIFIED ASTHMA, UNCOMPLICATED Qualifiers: Asthma severity: moderate persistent Asthma complication type: with acute exacerbation Qualified Code(s): J45.41 - Moderate persistent asthma with (acute) exacerbation (2) CHF (congestive heart failure) Code(s): I50.9 - HEART FAILURE, UNSPECIFIED (3) COPD (chronic obstructive pulmonary disease) Code(s): J44.9 - CHRONIC OBSTRUCTIVE PULMONARY DISEASE, UNSPECIFIED Qualifiers : COPD type: COPD with acute exacerbation Qualified Code(s): J44.1 - Chronic obstructive pulmonary disease with (acute) exacerbation (4) DM (diabetes mellitus) Code(s): E11.9 - TYPE 2 DIABETES MELLITUS WITHOUT COMPLICATIONS Qualifiers: Diabetes mellitus complication status: with ophthalmic complications (5) Dyspnea Code(s): R06.00 - DYSPNEA, UNSPECIFIED (6) HTN (hypertension) Code(s): I10 - ESSENTIAL (PRIMARY) HYPERTENSION Qualifiers: Hypertension type: unspecified secondary hypertension Qualified Code (s): I15.9 - Secondary hypertension, unspecified; I15 - Secondary hypertension Assessment/Plan Monitor off Medrol -> short prednisone course O2 as needed ABX for coverage BD TX On discharge Symbicort should be the 160/4.5 dose BD TX PRN Continued smoking cessation discussed No Pulmonary contraindication for D/C planning Dr Carr Problem List - Problems (1) Asthma Code(s): J45.909 - UNSPECIFIED ASTHMA, UNCOMPLICATED Qualifiers: Asthma severity: moderate persistent Asthma complication type: with acute exacerbation Qualified Code(s): J45.41 - Moderate persistent asthma with (acute) exacerbation (2) CHF (congestive heart failure) Code(s): I50.9 - HEART FAILURE, UNSPECIFIED (3) COPD (chronic obstructive pulmonary disease) Code(s): J44.9 - CHRONIC OBSTRUCTIVE PULMONARY DISEASE, UNSPECIFIED Qualifiers : COPD type: COPD with acute exacerbation Qualified Code(s): J44.1 - Chronic obstructive pulmonary disease with (acute) exacerbation (4) DM (diabetes mellitus) Code(s): E11.9 - TYPE 2 DIABETES MELLITUS WITHOUT COMPLICATIONS Qualifiers: Diabetes mellitus complication status: with ophthalmic complications (5) Dyspnea Code(s): R06.00 - DYSPNEA, UNSPECIFIED (6) HTN (hypertension) Code(s): I10 - ESSENTIAL (PRIMARY) HYPERTENSION Qualifiers: Hypertension type: unspecified secondary hypertension Qualified Code (s): I15.9 - Secondary hypertension, unspecified; I15 - Secondary hypertension
--- NOTE | 2016-12-07 13:30 | PN ---
Progress Note (short form) - Note Progress Note: feels well wants to go home breathing improved took 20 mg of prednisone before coming to ED yesterday no difficulty urinating BM yesterday Vital Signs Period Temp Pulse Resp BP Sys/Hall Pulse Ox Last 24 Hr 97.6 F-98.4 F 61-93 18-22 116-143/63-80 95-98 cor-rrr lungs clear abd soft,nt ext no edema CBC, BMP 12/07/16 06:05 12/07/16 06:05 Microbiology 12/06/16 15:00 Urine - Urine Clean Catch Urine Culture - Final 12/05/16 21:50 Blood - Peripheral Venous Blood Culture - Preliminary NO GROWTH OBTAINED AFTER 24 HOURS, INCUBATION TO CONTINUE FOR 4 DAYS. 12/05/16 21:33 Blood - Peripheral Venous Blood Culture - Preliminary NO GROWTH OBTAINED AFTER 24 HOURS, INCUBATION TO CONTINUE FOR 4 DAYS. a/p suspect leukocytosis is due to steroids clinically well would speak to urology about recent procedure and need to continue antibiotics as outpt- patient states he has antibiotics at home I was not able to reach urologist- left message
--- NOTE | 2016-12-07 16:38 | PN ---
Progress Note, Physician Chief Complaint: AWAKE ALERT IMPROVING STILL WITH SX OF DYSPNEA - Current Medication List Current Medications: Active Medications Acetaminophen (Tylenol -) 650 mg PO Q6H PRN PRN Reason: FEVER OR PAIN Albuterol/Ipratropium (Duoneb -) 1 amp NEB Q6H PRN PRN Reason: SHORTNESS OF BREATH Last Admin: 12/07/16 06:44 Dose: 1 amp Aspirin (Asa -) 81 mg PO DAILY [facility] Last Admin: 12/07/16 10:36 Dose: 81 mg Budesonide/Formoterol Fumarate (Symbicort 80/4.5mcg -) 2 puff IH BID [facility] Last Admin: 12/07/16 10:37 Dose: 2 puff Furosemide (Lasix -) 40 mg PO DAILY [facility] Last Admin: 12/07/16 10:36 Dose: 40 mg Heparin Sodium (Porcine) (Heparin -) 5,000 unit SQ BID [facility] Last Admin: 12/07/16 10:37 Dose: 5,000 unit Ceftriaxone Sodium 1 gm/ (Dextrose) 50 mls @ 100 mls/hr IVPB DAILY [facility] Last Admin: 12/07/16 10:32 Dose: 100 mls/hr Insulin Aspart (Novolog Vial Sliding Scale -) 1 vial SQ ACHS BRIT PRN Reason: Protocol Last Admin: 12/07/16 12:02 Dose: Not Given Montelukast Sodium (Singulair -) 10 mg PO HS [facility] Last Admin: 12/06/16 21:22 Dose: 10 mg Prednisone (Deltasone -) 40 mg PO DAILY [facility] Stop: 12/09/16 10:01 Last Admin: 12/07/16 10:37 Dose: 40 mg Ranitidine HCl (Zantac -) 150 mg PO DAILY [facility] Last Admin: 12/07/16 10:36 Dose: 150 mg Rosuvastatin Calcium (Crestor -) 10 mg PO HS [facility] Last Admin: 12/06/16 21:22 Dose: 10 mg Tamsulosin HCl (Flomax -) 0.4 mg PO DAILY@0830 [facility] Last Admin: 12/07/16 08:21 Dose: 0.4 mg - Objective Vital Signs: Vital Signs Temperature 98.1 F 12/07/16 14:00 Pulse Rate 75 12/07/16 14:00 Respiratory Rate 18 12/07/16 14:00 Blood Pressure 134/69 12/07/16 14:00 O2 Sat by Pulse Oximetry (%) 95 12/07/16 09:50 Constitutional: Yes: Mild Distress Eyes: Yes: WNL HENT: Yes: WNL Neck: Yes: WNL Cardiovascular: Yes: WNL Respiratory: Yes: Poor Air Entry, SOB Gastrointestinal: Yes: WNL Genitourinary: Yes: WNL Musculoskeletal: Yes: WNL Extremities: Yes: WNL Edema: No Peripheral Pulses WNL: Yes Integumentary: Yes: WNL Wound/Incision: Yes: Clean/Dry Neurological: Yes: WNL ...Motor Strength: WNL Psychiatric: Yes: WNL Labs: CBC, BMP 12/07/16 06:05 12/07/16 06:05 INR, PTT INR 1.36 (0.82-1.09) H 12/05/16 21:15 Problem List - Problems (1) Acute exacerbation of chronic obstructive pulmonary disease (COPD) Code(s): J44.1 - CHRONIC OBSTRUCTIVE PULMONARY DISEASE W (ACUTE) EXACERBATION (2) UTI (urinary tract infection) Code(s): N39.0 - URINARY TRACT INFECTION, SITE NOT SPECIFIED Qualifiers: Urinary tract infection type: acute cystitis (3) Acute exacerbation of CHF (congestive heart failure) Code(s): I50.9 - HEART FAILURE, UNSPECIFIED Qualifiers: Congestive heart failure type: unspecified congestive heart failure type Qualified Code(s): I50.9 - Heart failure, unspecified (4) COPD (chronic obstructive pulmonary disease) Code(s): J44.9 - CHRONIC OBSTRUCTIVE PULMONARY DISEASE, UNSPECIFIED Qualifiers : COPD type: COPD with acute exacerbation Qualified Code(s): J44.1 - Chronic obstructive pulmonary disease with (acute) exacerbation (5) DM (diabetes mellitus) Code(s): E11.9 - TYPE 2 DIABETES MELLITUS WITHOUT COMPLICATIONS Qualifiers: Diabetes mellitus complication status: with ophthalmic complications Assessment/Plan CHANGE TO PO PREDNISONE AND ABX IN MORNING DC PLANNING PULM F/U OUTPATIENT
[2016-12-07] MEDS ORDERED: INSULIN (NOVOLOG) ASPART 100 UNITS/ML 10ML VIAL ONE (17:07)
[2016-12-07] MEDS: MONTELUKAST NA 10 MG TABLET PO SCH (21:10)
[2016-12-07] MEDS: ROSUVASTATIN CA 10 MG TABLET (FP) PO SCH (21:10)
[2016-12-07] MEDS: PANTOPRAZOLE 40 MG TABLET (FP) PO SCH (21:54)
[2016-12-08] MEDS: INSULIN SLIDING SCALE (NOVOLOG) 1 VIAL SQ SCH ×2 (06:18→11:45)
[2016-12-08 06:44] VITALS: TEMP 97.6
--- NOTE | 2016-12-08 07:50 | PN ---
Progress Note, Physician Chief Complaint: ID Feels well no complaints Ceftriaxone - Current Medication List Current Medications: Active Medications Acetaminophen (Tylenol -) 650 mg PO Q6H PRN PRN Reason: FEVER OR PAIN Albuterol/Ipratropium (Duoneb -) 1 amp NEB Q6H PRN PRN Reason: SHORTNESS OF BREATH Last Admin: 12/07/16 06:44 Dose: 1 amp Aspirin (Asa -) 81 mg PO DAILY [facility] [place] Last Admin: 12/07/16 10:36 Dose: 81 mg Budesonide/Formoterol Fumarate (Symbicort 80/4.5mcg -) 2 puff IH BID [facility] Last Admin: 12/07/16 21:14 Dose: 2 puff Furosemide (Lasix -) 40 mg PO DAILY [facility] Last Admin: 12/07/16 10:36 Dose: 40 mg Heparin Sodium (Porcine) (Heparin -) 5,000 unit SQ BID [facility] Last Admin: 12/07/16 21:10 Dose: 5,000 unit Ceftriaxone Sodium 1 gm/ (Dextrose) 50 mls @ 100 mls/hr IVPB DAILY [facility] Last Admin: 12/07/16 10:32 Dose: 100 mls/hr Insulin Aspart (Novolog Vial Sliding Scale -) 1 vial SQ ACHS BRIT PRN Reason: Protocol Last Admin: 12/08/16 06:18 Dose: Not Given Montelukast Sodium (Singulair -) 10 mg PO HS [facility] Last Admin: 12/07/16 21:10 Dose: 10 mg Pantoprazole Sodium (Protonix -) 40 mg PO DAILY [facility] Last Admin: 12/07/16 21:54 Dose: 40 mg Prednisone (Deltasone -) 40 mg PO DAILY [facility] Stop: 12/09/16 10:01 Last Admin: 12/07/16 10:37 Dose: 40 mg Ranitidine HCl (Zantac -) 150 mg PO DAILY [facility] Last Admin: 12/07/16 10:36 Dose: 150 mg Rosuvastatin Calcium (Crestor -) 10 mg PO HS [facility] Last Admin: 12/07/16 21:10 Dose: 10 mg Tamsulosin HCl (Flomax -) 0.4 mg PO DAILY@0830 [facility] Last Admin: 12/07/16 08:21 Dose: 0.4 mg - Objective Vital Signs: Vital Signs Temperature 97.6 F 12/08/16 06:43 Pulse Rate 64 12/08/16 06:43 Respiratory Rate 18 12/08/16 06:43 Blood Pressure 120/65 12/08/16 06:43 O2 Sat by Pulse Oximetry (%) 96 12/07/16 21:00 Constitutional: Yes: Well Nourished, No Distress Eyes: Yes: WNL, Conjunctiva Clear HENT: Yes: WNL, Atraumatic Neck: Yes: WNL, Supple Cardiovascular: Yes: Regular Rate and Rhythm, S1, S2. No: Rub Respiratory: Yes: WNL, Regular, CTA Bilaterally Gastrointestinal: Yes: WNL, Normal Bowel Sounds, Soft. No: Splenomegaly, Tenderness, Tenderness, Rebound Labs: CBC, BMP 12/07/16 06:05 12/07/16 06:05 INR, PTT INR 1.36 (0.82-1.09) H 12/05/16 21:15 Problem List - Problems (1) UTI (urinary tract infection) Code(s): N39.0 - URINARY TRACT INFECTION, SITE NOT SPECIFIED Qualifiers: Urinary tract infection type: acute cystitis Assessment/Plan Laboratory Tests 12/06/16 12/07/16 12/07/16 12:30 06:05 06:05 WBC 26.4 H Hgb 14.7 Hct 44.1 Plt Count 287 BUN 18 Creatinine 1.0 Hepatitis C Antibody <0.1 Assessment Exacerbation of COPD/ WBC secondary steroids Plan Could discharge on Ceftin 500mg bid 5 days Dontrell MYERS
[2016-12-08] MEDS: TAMSULOSIN HCL 0.4 MG CAP.ER.24H (FP) PO SCH (08:27)
[2016-12-08] MEDS ORDERED: DEXTROSE 5%-WATER - 50 ML IVPB ONE (09:11)
[2016-12-08] MEDS ORDERED: cefTRIAXone SODIUM 1 GM VIAL ONE (09:11)
[2016-12-08] MEDS: predniSONE 20 MG TABLET (UD) PO SCH (09:44)
[2016-12-08] MEDS: RANITIDINE HCL 150 MG TABLET (FP) PO SCH (09:44)
[2016-12-08] MEDS: PANTOPRAZOLE 40 MG TABLET (FP) PO SCH (09:44)
[2016-12-08] MEDS: HEPARIN NA (PORCINE) 5,000 UNITS/ML 1ML VIAL SQ SCH (09:44)
[2016-12-08] MEDS: ASPIRIN 81 MG CHEWABLE TABLETS PO SCH (09:44)
[2016-12-08] MEDS: CEFTRIAXONE 1 GM in DEXTROSE 5%-WATER - 50 ML IVPB SCH (09:44)
[2016-12-08] MEDS: FUROSEMIDE 40 MG TABLET (FP) PO SCH (09:44)
[2016-12-08] MEDS: BUDESONIDE/FORMETEROL FUMARATE 80/4.5 mcg INHALER IH SCH (09:46)
--- NOTE | 2016-12-08 10:56 | DS ---
Physical Examination Vital Signs: Vital Signs Temperature 97.6 F 12/08/16 06:43 Pulse Rate 64 12/08/16 06:43 Respiratory Rate 18 12/08/16 06:43 Blood Pressure 120/65 12/08/16 06:43 O2 Sat by Pulse Oximetry (%) 96 12/07/16 21:00 Constitutional: Yes: No Distress Eyes: Yes: WNL HENT: Yes: WNL Neck: Yes: WNL Cardiovascular: Yes: WNL Respiratory: Yes: Diminished Gastrointestinal: Yes: WNL Renal/: Yes: WNL Musculoskeletal: Yes: WNL Extremities: Yes: WNL Edema: No Peripheral Pulses WNL: Yes Integumentary: Yes: WNL Wound/Incision: Yes: Clean/Dry Neurological: Yes: WNL ...Motor Strength: WNL Psychiatric: Yes: WNL Labs: CBC, BMP 12/07/16 06:05 12/07/16 06:05 Discharge Summary Reason For Visit: URINARY TRACT INFECTION, CHRONIC OBSTRUCTIVE PUL- Current Active Problems Acute exacerbation of chronic obstructive pulmonary disease (COPD) (Acute) UTI (urinary tract infection) (Acute) Procedures: Principal: LABS/XRAYS Hospital Course: ADMITTED FOR ACUTE ON CHRONIC COPD EXACERBATION, IV ABX AND IV STEROIDS GIVEN, IMPROVED ON 02 THERAPY WILL DC HOME. TAPER OFF PREDNISONE AND F/U WITH PMD AND PULMONARY OUTPATIENT Condition: Guarded - Instructions Diet, Activity, Other Instructions: ADA/LOW SODIUM/LOW FAT PULMONARY FOLLOW UP WITH DR MARROQUIN Referrals: David Gaytan MD [Primary Care Provider] - Disposition: VNS/HOME HEALTH CARE - Home Medications Comprehensive Discharge Medication List: Ambulatory Orders Aspirin [ASA -] 81 mg PO DAILY #0 tab.chew 07/31/14 Fluticasone Prop 0.05% Nasal [Flonase -] 1 - 2 spray NS BID 12/24/15 Albuterol Sulfate Inhaler - [Ventolin HFA Inhaler -] 1 - 2 inh PO Q4H PRN #1 inhaler 01/11/16 Budesonide/Formeterol Fumarate [SYMBICORT 80/4.5mcg -] 2 puff IH BID inhaler Albuterol 0.083% Nebulizer Jacki [Ventolin 0.083% Nebulizer Soln -] 1 neb NEB Q4H PRN #30 vial 07/24/16 Acetaminophen [Tylenol .Regular Strength -] 650 mg PO Q6H PRN #0 tablet Albuterol 2.5/Ipratropium 0.5 [Duoneb -] 1 amp NEB Q6H PRN #0 amp 10/04/16 Furosemide [Lasix -] 40 mg PO DAILY tablet 10/04/16 Montelukast Na [Singulair -] 10 mg PO HS tablet 10/04/16 Famotidine [Pepcid -] 20 mg PO DAILY 12/05/16 Prednisone [Deltasone -] 10 mg PO DAILY 12/05/16 Rosuvastatin [Crestor -] 10 mg PO DAILY 12/05/16 Tamsulosin HCl [Flomax] 0.4 mg PO DAILY 12/05/16 Tiotropium Br/Olodaterol HCl [Stiolto Respimat Inhal [place]] 4 gm IH DAILY
[2016-12-08] MEDS ORDERED: CEFUROXIME AXETIL 500 MG TABLET PO SCH (11:00)
[2016-12-08 11:08] VITALS: BP 130/60; PULSE 66
== END 2016-12-08 11:55 | disposition home or self-care (01) | DRG 191 ==
LOC: JER 20:22 → JERBED 12-06 00:02 → J6S 12-06 04:42
PROVIDERS: ADMIT Family Medicine; ATTEND Family Medicine
DX: J44.1 Chronic obstructive pulmonary disease with (acute) exacerbation (principal); N39.0 Urinary tract infection, site not specified; J45.21 Mild intermittent asthma with (acute) exacerbation; E11.9 Type 2 diabetes mellitus without complications; N40.0 Benign prostatic hyperplasia without lower urinary tract symptoms; I11.0 Hypertensive heart disease with heart failure; K52.89 Other specified noninfective gastroenteritis and colitis; Z87.891 Personal history of nicotine dependence
CPT/HCPCS: 36415; 71020-TC; 80053; 81003; 81015; 82550; 82553; 83880; 84484; 85025; 85610; 86803; 87040; 87086; 93005; 93010; 94640; 99285-25; J1644

== ENCOUNTER 2017-01-07 12:56 | Emergency (ER) | payer BC, OTHER ==
[2017-01-07 13:33] VITALS: BP 143/75; PULSE 81; TEMP 98.5; BMI 31.4
[2017-01-07] MEDS ORDERED: TETRACAINE 0.5% OPHTH SOLN 2 ML BOTTLE ONE (14:22)
--- NOTE | 2017-01-07 14:35 | PDOC ---
History of Present Illness - General Chief Complaint: Eye Problem Stated Complaint: EYE PROBLEM Time Seen by Provider: 01/07/17 14:19 History Source: Patient Exam Limitations: No Limitations - History of Present Illness Initial Comments: 01/07/17 14:28 71 yr male with 4 days bilateral eye redness and itching with crust discharge. Pt also with sneezing and nasal congestion. no vision change or headache. Severity: mild Past History - Past Medical History Allergies/Adverse Reactions: Allergies Allergy/AdvReac Type Severity Reaction Status Date / Time ibuprofen [From Advil] Allergy Unknown Vomiting Verified 01/07/17 13:30 azithromycin [From Zithromax] AdvReac Mild Vomiting Verified 01/07/17 13:30 Home Medications: Ambulatory Orders Aspirin [ASA -] 81 mg PO DAILY #0 tab.chew 07/31/14 Albuterol Sulfate Inhaler - [Ventolin HFA Inhaler -] 1 - 2 inh PO Q4H PRN #1 inhaler 01/11/16 Albuterol 0.083% Nebulizer Jacki [Ventolin 0.083% Nebulizer Soln -] 1 neb NEB Q4H PRN #30 vial 07/24/16 Acetaminophen [Tylenol .Regular Strength -] 650 mg PO Q6H PRN #0 tablet Albuterol 2.5/Ipratropium 0.5 [Duoneb -] 1 amp NEB Q6H PRN #0 amp 10/04/16 Furosemide [Lasix -] 40 mg PO DAILY tablet 10/04/16 Montelukast Na [Singulair -] 10 mg PO HS tablet 10/04/16 Prednisone [Deltasone -] 10 mg PO DAILY 12/05/16 Rosuvastatin [Crestor -] 10 mg PO DAILY 12/05/16 Tamsulosin HCl [Flomax -] 0.4 mg PO DAILY 12/05/16 Tiotropium Br/Olodaterol HCl [Stiolto Respimat Inhal [place]] 4 gm IH DAILY Budesonide/Formeterol Fumarate [SYMBICORT 80/4.5mcg -] 2 puff IH BID #1 inhaler 12/08/16 Cefuroxime Axetil [Ceftin -] 500 mg PO BID #10 tablet 12/08/16 Prednisone [Deltasone -] 40 mg PO DAILY #20 tablet 12/08/16 Ranitidine [Zantac -] 150 mg PO DAILY #30 tablet 12/08/16 Fluticasone Prop 0.05% Nasal [Flonase -] 1 - 2 spray NS BID #1 bottle 01/07/17 Ketotifen Fumarate 1 drop OP BID #1 bottle 01/07/17 Anemia: No Asthma: Yes (denies) Cardiac Disorders: Yes (CHF) CVA: No COPD: Yes CHF: Yes Dementia: No Diabetes: Yes GI Disorders: No Disorders: Yes (ENLARGED PROSTATE) HTN: Yes (denies) Hypercholesterolemia: No Liver Disease: No Seizures: No Thyroid Disease: No - Surgical History Abdominal Surgery: No Appendectomy: No Cardiac Surgery: No Cholecystectomy: No - Immunization History Immunization Up to Date: Yes - Psycho/Social/Smoking Cessation Hx Anxiety: No Suicidal Ideation: No Smoking Status: No Smoking History: Former smoker Have you smoked in the past 12 months: No Number of Cigarettes Smoked Daily: 0 If you are a former smoker, when did you quit?: 2001 Information on smoking cessation initiated: No 'Breaking Loose' booklet given: 01/08/12 Hx Alcohol Use: No Drug/Substance Use Hx: No Substance Use Type: None Hx Substance Use Treatment: No *Physical Exam - Vital Signs Last Vital Signs Temp Pulse Resp BP Pulse Ox 98.5 F 81 19 143/75 99 01/07/17 13:30 01/07/17 13:30 01/07/17 13:30 01/07/17 13:30 01/07/17 13:30 - Physical Exam General Appearance: Yes: Nourished, Appropriately Dressed HEENT: positive: EOMI, MT, Normal ENT Inspection, TMs Normal, Pharynx Normal, Nasal Congestion, Other (redness to bilateral conjunctiva with scant crust in left eye ) Neck: positive: Supple Respiratory/Chest: positive: Lungs Clear, Normal Breath Sounds Cardiovascular: positive: Regular Rhythm, Regular Rate Integumentary: positive: Normal Color, Dry, Warm Neurologic: positive: Fully Oriented, Alert, Normal Mood/Affect, Normal Response , Motor Strength 5/5 Procedures - Additional Procedures Progress: 01/07/17 14:38 2 drops tetraciane to each eye no fluroscein uptake noted no fb noted Medical Decision Making - Medical Decision Making 01/07/17 14:39 cc: itchy red eyes for 4 days nasal congestion and sneezing neg fluroscein uptake neg foreign body visual acuity 20/30 both eyes without corrective lenses no pain neg vision loss or disturbance *DC/Admit/Observation/Transfer Diagnosis at time of Disposition: Allergic conjunctivitis Qualifiers: Laterality: bilateral Qualified Code(s): H10.13 - Acute atopic conjunctivitis, bilateral - Discharge Dispostion Disposition: HOME Condition at time of disposition: Good - Prescriptions Prescriptions: Fluticasone Prop 0.05% Nasal [Flonase -] 1 - 2 spray NS BID #1 bottle Ketotifen Fumarate 1 drop OP BID #1 bottle - Referrals Referrals: David Gaytan MD [Primary Care Provider] - - Patient Instructions Printed Discharge Instructions: Allergies, Respiratory (Alternative Therapy) Additional Instructions: use the eye drops as directed use the nasal spray Flonase for allergy symptoms follow with your eye doctor on Tuesday Return if any worse
== END 2017-01-07 14:58 | disposition home or self-care (01) ==
LOC: JERFT 12:56
DX: H10.13 Acute atopic conjunctivitis, bilateral (principal)
CPT/HCPCS: 99281-25

== ENCOUNTER 2017-04-04 10:04 | Emergency (ER) | payer OTHER ==
[2017-04-04 10:14] VITALS: BP 139/76; PULSE 66; TEMP 98.2; BMI 31.9
--- NOTE | 2017-04-04 13:24 | PDOC ---
History of Present Illness - General Chief Complaint: Shortness of Breath Stated Complaint: COPD, EAR PROBLEM Time Seen by Provider: 04/04/17 13:23 - History of Present Illness Initial Comments: 04/04/17 14:56 Mr. Bravo is a 71 yo male w/ pmh of DM, COPD, HTN, Asthma who presents with 3 day history of shortness of breath with cough and runny nose. He reports his mucous was initially yellow but is now clear. He also reports a R sided ear ache that has moved over from his Left. The patient denies chest pain, headache and dizziness. Denies fever, chills, nausea, vomit, diarrhea and constipation. Denies dysuria, frequency, urgency and hematuria. Allergies: Ibuprofen, azithromycin Past History - Past Medical History Allergies/Adverse Reactions: Allergies Allergy/AdvReac Type Severity Reaction Status Date / Time ibuprofen [From Advil] Allergy Unknown Vomiting Verified 04/04/17 10:11 azithromycin [From Zithromax] AdvReac Mild Vomiting Verified 04/04/17 10:11 Home Medications: Ambulatory Orders Aspirin [ASA -] 81 mg PO DAILY #0 tab.chew 07/31/14 Albuterol Sulfate Inhaler - [Ventolin HFA Inhaler -] 1 - 2 inh PO Q4H PRN #1 inhaler 01/11/16 Albuterol 0.083% Nebulizer Jacki [Ventolin 0.083% Nebulizer Soln -] 1 neb NEB Q4H PRN #30 vial 07/24/16 Acetaminophen [Tylenol .Regular Strength -] 650 mg PO Q6H PRN #0 tablet Albuterol 2.5/Ipratropium 0.5 [Duoneb -] 1 amp NEB Q6H PRN #0 amp 10/04/16 Furosemide [Lasix -] 40 mg PO DAILY tablet 10/04/16 Montelukast Na [Singulair -] 10 mg PO HS tablet 10/04/16 Prednisone [Deltasone -] 10 mg PO DAILY 12/05/16 Rosuvastatin [Crestor -] 10 mg PO DAILY 12/05/16 Tamsulosin HCl [Flomax -] 0.4 mg PO DAILY 12/05/16 Tiotropium Br/Olodaterol HCl [Stiolto Respimat Inhal [place]] 4 gm IH DAILY Budesonide/Formeterol Fumarate [SYMBICORT 80/4.5mcg -] 2 puff IH BID #1 inhaler 12/08/16 Cefuroxime Axetil [Ceftin -] 500 mg PO BID #10 tablet 12/08/16 Prednisone [Deltasone -] 40 mg PO DAILY #20 tablet 12/08/16 Ranitidine [Zantac -] 150 mg PO DAILY #30 tablet 12/08/16 Fluticasone Prop 0.05% Nasal [Flonase -] 1 - 2 spray NS BID #1 bottle 01/07/17 Ketotifen Fumarate 1 drop OP BID #1 bottle 01/07/17 Nystatin Cream [Mycostatin Cream -] 1 applic TP BID #1 tube 04/04/17 Prednisone 40 mg PO DAILY 3 Days #12 tablet 04/04/17 Anemia: No Asthma: Yes (denies) Cardiac Disorders: Yes (CHF) CVA: No COPD: Yes CHF: Yes Dementia: No Diabetes: Yes GI Disorders: No Disorders: Yes (ENLARGED PROSTATE) HTN: Yes Hypercholesterolemia: No Liver Disease: No Seizures: No Thyroid Disease: No - Surgical History Abdominal Surgery: No Appendectomy: No Cardiac Surgery: No Cholecystectomy: No - Immunization History Immunization Up to Date: Yes - Suicide/Smoking/Psychosocial Hx Smoking Status: No Smoking History: Former smoker Have you smoked in the past 12 months: No Number of Cigarettes Smoked Daily: 0 If you are a former smoker, when did you quit?: 2001 Information on smoking cessation initiated: No 'Breaking Loose' booklet given: 01/08/12 Hx Alcohol Use: No Drug/Substance Use Hx: No Substance Use Type: None Hx Substance Use Treatment: No Review of Systems - Review of Systems Comments:: +As described above *Physical Exam - Vital Signs Last Vital Signs Temp Pulse Resp BP Pulse Ox 98.2 F 66 20 139/76 100 04/04/17 10:12 04/04/17 10:12 04/04/17 10:12 04/04/17 10:12 04/04/17 10:12 - Physical Exam Comments: 04/04/17 15:05 GENERAL: Awake, alert, and fully oriented, in no acute distress HEAD: No signs of trauma, normocephalic, atraumatic EYES: PERRLA, EOMI, sclera anicteric, conjunctiva clear ENT: +Acutely tender to R Pre-auricular area. Angular chelitis noted bilateraly. Hearing grossly normal, nares patent, oropharynx clear without exudates. Moist mucosa NECK: Normal ROM, supple, no lymphadenopathy, JVD, or masses LUNGS: +Wheezes noted throughout lung velazquez. HEART: Regular rate and rhythm, normal S1 and S2, no murmurs, rubs or gallops, peripheral pulses normal and equal bilaterally. ABDOMEN: Soft, nontender, normoactive bowel sounds. No guarding, no rebound. No masses EXTREMITIES: Normal inspection, Normal range of motion, no edema. No clubbing or cyanosis. NEUROLOGICAL: Cranial nerves II through XII grossly intact. Normal speech, normal gait, no focal sensorimotor deficits SKIN: Warm, Dry, normal turgor, no rashes or lesions noted. : +Small demal fungal infection noted to scrotum. ED Treatment Course - LABORATORY CBC & Chemistry Diagram: 04/04/17 14:50 04/04/17 14:50 Medical Decision Making - Medical Decision Making 04/04/17 16:18 Mr. Bravo reports cold-like symptoms complicated by R pre-auricular pain. Will evaluate with CT for abscess 04/04/17 19:13 Patient reported relief of symptoms with 3 duoneb treatments and [address] negative for abscess, temporomadiubular degenerative joint changes visualized. Will give information for outpatient oral surgery f/u as well as prescription for oral prednisone. Also, instructed patient on soft mechanical diet until pain decreases. 04/04/17 19:21 Patient also complained of itching to scrotum on further exam - fungal infection noted - RX for nystatin cream given. *DC/Admit/Observation/Transfer Diagnosis at time of Disposition: Shortness of breath - Discharge Dispostion Disposition: HOME Condition at time of disposition: Good - Referrals Referrals: David Gaytan MD [Primary Care Provider] - Bao Mckeon [Staff Physician] - Bautista Malhotra MD [Other Staff,non-medical] - - Patient Instructions Printed Discharge Instructions: DI for Viral Upper Respiratory Infection -- Adult - Post Discharge Activity
[2017-04-04] MEDS ORDERED: ALBUTEROL SO4 2.5/IPRATROPIUM 0.5 INH SOL 3 ML VIAL.NEB. NEB ONE ×4 (13:47→17:09)
--- NOTE | 2017-04-04 14:22 | PDOC ---
Attending Attestation - HPI HPI: 04/04/17 15:25 Patient is a 71 year old male with a PMHx of COPD, HTN, diabetes, enlarged prostate, and CHF who presents to the ED with shortness of breath and right ear pain for 3 days. Patient states that his SOB has been getting worse so he decided to come to the ER. He also reports cough and increased sputum production. He has been taking albuterol 4x a day. He also reports runny nose and right ear pain which he states was the main reason why he came to the ER. Movie Shot Cameraman - Dr. Gomez - Physicial Exam PE: 04/04/17 15:25 GENERAL: Awake, alert, and fully oriented, in no acute distress HEAD: No signs of trauma EYES: PERRLA, EOMI, sclera anicteric, conjunctiva clear ENT: Auricles normal inspection, hearing grossly normal, nares patent, oropharynx clear without exudates. Moist mucosa NECK: Normal ROM, supple, no lymphadenopathy, JVD, or masses LUNGS: +Diffusely wheezing in all lung velazquez. HEART: Regular rate and rhythm, normal S1 and S2, no murmurs, rubs or gallops ABDOMEN: Soft, nontender, normoactive bowel sounds. No guarding, no rebound. No masses EXTREMITIES: Normal range of motion, no edema. No clubbing or cyanosis. No cords, erythema, or tenderness NEUROLOGICAL: Cranial nerves II through XII grossly intact. Normal speech, normal gait SKIN: Warm, Dry, normal turgor, no rashes or lesions noted. <Sirisha Latham - Last Filed: 04/04/17 15:25> - Resident Resident Name: Garrison Lawson - ED Attending Attestation I have performed the following: I have examined & evaluated the patient, The case was reviewed & discussed with the resident, I agree w/resident's findings & plan, Exceptions are as noted - Medical Decision Making 04/04/17 14:22 I, Dr. Gabi Roberts, DO, attest that this document has been prepared under my direction and personally reviewed by me in its entirety. I further attest, that it accurately reflects all work, treatment, procedures and medical decision -making performed by me. 04/04/17 16:28 a/p: 71yo male with copd and sob and R ear pain -wheezing on exam -will give nebs and steroids -change in cough production -xray -poss abx -R ear without otitis externa or media -ttp just anterior to the ear over parotid gland without parotid gland swelling will obtain ct facial bones and reassess <Gabi Roberts - Last Filed: 04/04/17 16:29>
[2017-04-04] MEDS ORDERED: predniSONE 20 MG TABLET (UD) PO ONE (15:17)
[2017-04-04 15:26] LABS: BASOPHIL 0.7 % (0-2.0); EOSINOPHIL 8.6 % (0-4.5); MCH 28.2 pg (25.7-33.7); MCHC 32.7 g/dl (32.0-35.9); MEAN CELL VOLUME 86.3 fl (80-96); MEAN PLT VOLUME 8.7 fl (7.5-11.1); NEUTROPHILS 60.3 % (42.8-82.8); PLATELET COUNT 222 K/MM3 (134-434); RDW 14.3 % (11.9-15.9); WHITE BLOOD COUNT 11.3 K/mm3 (4.0-10.0)
[2017-04-04 15:34] LABS: ALBUMIN 3.7 g/dl (3.4-5.0); ALK PHOS 76 U/L (45-117); ANION GAP 8 (8-16); CALCIUM 9.1 mg/dL (8.5-10.1); CO2 28 mmol/L (21-32); CREATININE 0.9 mg/dL (0.7-1.3); GLUCOSE,RANDOM 92 mg/dL (74-106); SGOT/AST 21 U/L (15-37); SGPT/ALT 40 U/L (12-78); TOT PROT 7.2 g/dl (6.4-8.2)
[2017-04-04] MEDS ORDERED: ACETAMINOPHEN 1000 MG/100 ML VIAL (NON FORMULARY) IVPB ONE ×2 (16:13→16:15)
[2017-04-04] MEDS ORDERED: KETOROLAC TROMETHAMINE 15 MG/ML VIAL IVPUSH ONE ×2 (16:13→16:15)
[2017-04-04] MEDS ORDERED: SODIUM CHLORIDE 0.9% 1000 ML INFUS.BAG IV ONE (16:13)
[2017-04-04] MEDS ORDERED: ALBUTEROL SO4 0.083% IH SOL 2.5 MG/3 ML VIAL.NEB. NEB ONE (16:14)
[2017-04-04] MEDS ORDERED: SODIUM CHLORIDE 1,000 ML IV STA (16:15)
[2017-04-04] MEDS ORDERED: KETOROLAC TROMETHAMINE 15 MG/ML VIAL ONE (17:09)
[2017-04-04] MEDS ORDERED: ACETAMINOPHEN INJECTION 100 ML IVPB ONE (17:09)
== END 2017-04-04 19:40 | disposition home or self-care (01) ==
LOC: JER 10:04
PROC: 3E0F7GC Introduction of Other Therapeutic Substance into Respiratory Tract, Via Natural or Artificial Opening (ICD-10-PCS; principal; 2017-04-04)
PROC: 3E0F7GC Introduction of Other Therapeutic Substance into Respiratory Tract, Via Natural or Artificial Opening (ICD-10-PCS; 2017-04-04)
PROC: 3E0F7GC Introduction of Other Therapeutic Substance into Respiratory Tract, Via Natural or Artificial Opening (ICD-10-PCS; 2017-04-04)
DX: J06.9 Acute upper respiratory infection, unspecified (principal); B97.89 Other viral agents as the cause of diseases classified elsewhere; I10 Essential (primary) hypertension; J44.9 Chronic obstructive pulmonary disease, unspecified; J45.909 Unspecified asthma, uncomplicated; E11.9 Type 2 diabetes mellitus without complications
CPT/HCPCS: 36415; 70487-TC; 71020-TC; 80053; 85025; 99282-25

== ENCOUNTER 2017-04-25 12:22 | Inpatient (IN) | payer OTHER ==
[2017-04-25 12:29] VITALS: BMI 31.9
--- NOTE | 2017-04-25 13:06 | PDOC ---
History of Present Illness - General History Source: Patient Exam Limitations: No Limitations - History of Present Illness Initial Comments: 04/25/17 13:35 The patient is a 71 year old male, with a significant past medical history of COPD, DM, HTN, Asthma, who presents to the emergency department with SOB for the past week. Patient reports URI symptoms: nasal congestion, yellow rhinorrhea , productive cough (yellow) with worsening SOB. Patient visited his PCP and was prescribed Z pack and Prednisone. Patient has also been using inhalers at home however denies any relief from these medications. Patient presents to the ED for further evaluation. Patient denies fever, chills. Patient denies abdominal pain, nausea, vomit, diarrhea or constipation. Patient denies chest pain, headache or dizziness. Patient denies dysuria, frequency, urgency or hematuria. Patient denies sick contacts or recent travel. PCP: Lucila <Beth Meadows - Last Filed: 04/25/17 17:43> <Dewey Durham - Last Filed: 04/25/17 18:05> - General Chief Complaint: Shortness of Breath Stated Complaint: SOB Time Seen by Provider: 04/25/17 13:05 Past History <Beth Meadows - Last Filed: 04/25/17 17:43> - Past Medical History Anemia: No Asthma: Yes Cardiac Disorders: Yes (CHF) CVA: No COPD: Yes CHF: Yes DVT: Yes Dementia: No Diabetes: Yes GI Disorders: No Disorders: Yes (ENLARGED PROSTATE) HTN: Yes Hypercholesterolemia: No Liver Disease: No Seizures: No Thyroid Disease: No - Surgical History Abdominal Surgery: No Appendectomy: No Cardiac Surgery: No Cholecystectomy: No - Immunization History Immunization Up to Date: Yes - Suicide/Smoking/Psychosocial Hx Smoking Status: No Smoking History: Former smoker Have you smoked in the past 12 months: No Number of Cigarettes Smoked Daily: 0 If you are a former smoker, when did you quit?: 2001 Information on smoking cessation initiated: No 'Breaking Loose' booklet given: 01/08/12 Hx Alcohol Use: No Drug/Substance Use Hx: No Substance Use Type: None Hx Substance Use Treatment: No <Dweey Durham - Last Filed: 04/25/17 18:05> - Past Medical History Allergies/Adverse Reactions: Allergies Allergy/AdvReac Type Severity Reaction Status Date / Time ibuprofen [From Advil] Allergy Unknown Vomiting Verified 04/25/17 12:25 azithromycin [From Zithromax] AdvReac Mild Vomiting Verified 04/25/17 12:25 Home Medications: Ambulatory Orders Aspirin [ASA -] 81 mg PO DAILY #0 tab.chew 07/31/14 Albuterol Sulfate Inhaler - [Ventolin HFA Inhaler -] 1 - 2 inh PO Q4H PRN #1 inhaler 01/11/16 Furosemide [Lasix -] 40 mg PO DAILY tablet 10/04/16 Montelukast Na [Singulair -] 10 mg PO HS tablet 10/04/16 Rosuvastatin [Crestor -] 10 mg PO DAILY 12/05/16 Tamsulosin HCl [Flomax -] 0.4 mg PO DAILY 12/05/16 Tiotropium Br/Olodaterol HCl [Stiolto Respimat Inhal [place]] 4 gm IH DAILY Budesonide/Formeterol Fumarate [SYMBICORT 80/4.5mcg -] 2 puff IH BID #1 inhaler 12/08/16 Cefuroxime Axetil [Ceftin -] 500 mg PO BID #10 tablet 12/08/16 Prednisone [Deltasone -] 40 mg PO DAILY #20 tablet 12/08/16 Ranitidine [Zantac -] 150 mg PO DAILY #30 tablet 12/08/16 Fluticasone Prop 0.05% Nasal [Flonase -] 1 - 2 spray NS BID #1 bottle 01/07/17 Nystatin Cream [Mycostatin Cream -] 1 applic TP BID #1 tube 04/04/17 Prednisone 40 mg PO DAILY 3 Days #12 tablet 04/04/17 Review of Systems - Review of Systems Able to Perform ROS?: Yes Comments:: 04/25/17 13:36 GENERAL/CONSTITUTIONAL: No fever or chills. No weakness. HEAD, EYES, EARS, NOSE AND THROAT: No change in vision. No ear pain or discharge. No sore throat. CARDIOVASCULAR: + shortness of breath. No chest pain. RESPIRATORY: +cough wheezing. No hemoptysis. GASTROINTESTINAL: No nausea, vomiting, diarrhea or constipation. GENITOURINARY: No dysuria, frequency, or change in urination. MUSCULOSKELETAL: No joint or muscle swelling or pain. No neck or back pain. SKIN: No rash NEUROLOGIC: No headache, vertigo, loss of consciousness, or change in strength/ sensation. ENDOCRINE: No increased thirst. No abnormal weight change. HEMATOLOGIC/LYMPHATIC: No anemia, easy bleeding, or history of blood clots. ALLERGIC/IMMUNOLOGIC: No hives or skin allergy. <Beth Meadows - Last Filed: 04/25/17 17:43> *Physical Exam - Vital Signs Last Vital Signs Temp Pulse Resp BP Pulse Ox 97.7 F 86 22 160/77 95 04/25/17 12:26 04/25/17 12:26 04/25/17 12:26 04/25/17 12:04/25/17 12:26 - Physical Exam Comments: 04/25/17 13:36 GENERAL: Awake, alert, and fully oriented, in no acute distress HEAD: No signs of trauma EYES: PERRLA, EOMI, sclera anicteric, conjunctiva clear ENT: Auricles normal inspection, hearing grossly normal, nares patent, oropharynx clear without exudates. Moist mucosa NECK: Normal ROM, supple, no lymphadenopathy, JVD, or masses LUNGS: +Wheezes bilaterally. Breath sounds equal, clear to auscultation bilaterally. and no crackles HEART: Regular rate and rhythm, normal S1 and S2, no murmurs, rubs or gallops ABDOMEN: Soft, nontender, normoactive bowel sounds. No guarding, no rebound. No masses EXTREMITIES: Normal range of motion, no edema. No clubbing or cyanosis. No cords, erythema, or tenderness NEUROLOGICAL: Cranial nerves II through XII grossly intact. Normal speech, normal gait SKIN: Warm, Dry, normal turgor, no rashes or lesions noted. <Beth Meadows - Last Filed: 04/25/17 17:43> - Vital Signs Last Vital Signs Temp Pulse Resp BP Pulse Ox 97.7 F 86 22 160/77 95 04/25/17 12:26 04/25/17 12:26 04/25/17 12:04/25/17 12:26 04/25/17 12:26 <Dewey Durham - Last Filed: 04/25/17 18:05> ED Treatment Course - LABORATORY CBC & Chemistry Diagram: 04/25/17 13:40 04/25/17 13:40 - Medications Given in the ED: ED Medications Discontinued Medications Generic Name Dose Route Start Last Admin Trade Name Shailesh PRN Reason Stop Dose Admin Albuterol Sulfate 2 amp 04/25/17 13:14 04/25/17 13:32 Ventolin 0.083% Nebulizer Soln - NEB 04/25/17 13:15 2 amp ONCE ONE Administration <Beth Meadows - Last Filed: 04/25/17 17:43> - LABORATORY CBC & Chemistry Diagram: 04/25/17 13:40 04/25/17 13:40 <Dewey Durham - Last Filed: 04/25/17 18:05> Medical Decision Making - Medical Decision Making 04/25/17 17:44 Dr. Gaytan paged via phone answering service. Patient;s case was discussed. <Beth Meadows - Last Filed: 04/25/17 17:43> *DC/Admit/Observation/Transfer - Attestations Scribe Attestion: 04/25/17 13:36 Documentation prepared by Beth Meadows, acting as center medical specialist for Dewey Durham DO. <Beth Meadows - Last Filed: 04/25/17 17:43> - Discharge Dispostion Admit: Yes - Attestations Physician Attestion: 04/25/17 13:06 I, Dr. Dewey Durham, attest that this document has been prepared under my direction and personally reviewed by me in its entirety. I further attest, that it accurately reflects all work, treatment, procedures and medical decision -making performed by me. <Dewey Durham - Last Filed: 04/25/17 18:05> Diagnosis at time of Disposition: COPD exacerbation, Dyspnea, COPD (chronic obstructive pulmonary disease), HTN ( hypertension), Elevated CK-MB level, Acute exacerbation of chronic obstructive pulmonary disease (COPD) - Discharge Dispostion Condition at time of disposition: Improved - Referrals Referrals: David Gaytan MD [Primary Care Provider] -
[2017-04-25] MEDS ORDERED: methylPREDNISolone NA SUCC 125 MG/2 ML VIAL IVPUSH ONE (13:14)
[2017-04-25] MEDS ORDERED: ALBUTEROL SO4 2.5/IPRATROPIUM 0.5 INH SOL 3 ML VIAL.NEB. NEB ONE ×2 (13:14→17:43)
[2017-04-25] MEDS ORDERED: ALBUTEROL SO4 0.083% IH SOL 2.5 MG/3 ML VIAL.NEB. NEB ONE ×2 (13:14→18:06)
[2017-04-25 13:51] LABS: BASOPHIL 1.7 % (0-2.0); EOSINOPHIL 7.3 % (0-4.5); MCH 28.7 pg (25.7-33.7); MCHC 33.2 g/dl (32.0-35.9); MEAN CELL VOLUME 86.5 fl (80-96); MEAN PLT VOLUME 8.3 fl (7.5-11.1); NEUTROPHILS 59.6 % (42.8-82.8); PLATELET COUNT 284 K/MM3 (134-434); RDW 14.7 % (11.9-15.9); WHITE BLOOD COUNT 11.9 K/mm3 (4.0-10.0)
[2017-04-25 14:07] LABS: INR 1.12 (0.82-1.09); PROTHROMBIN TIME (PATIENT) 12.6 SEC (9.98-11.88)
[2017-04-25] MEDS ORDERED: methylPREDNISolone NA SUCC 125 MG/2 ML VIAL ONE (14:18)
[2017-04-25 14:22] LABS: ALBUMIN 3.6 g/dl (3.4-5.0); ANION GAP 7 (8-16); BILIRUBIN,TOTAL 0.5 mg/dL (0.2-1.0); CALCIUM 9.7 mg/dL (8.5-10.1); CO2 32 mmol/L (21-32); CREATININE 0.9 mg/dL (0.7-1.3); GLUCOSE,RANDOM 107 mg/dL (74-106); SGOT/AST 37 U/L (15-37); SGPT/ALT 64 U/L (12-78); TOT PROT 7.3 g/dl (6.4-8.2)
[2017-04-25 14:25] LABS: ALK PHOS 68 U/L (45-117); CPK 734 IU/L (39-308); TROPONIN I < 0.02 ng/ml (0.00-0.05)
--- NOTE | 2017-04-25 15:01 | EKG ---
Test Reason : Blood Pressure : / mmHG Vent. Rate : 074 BPM Atrial Rate : 074 BPM P-R Int : 180 ms QRS Dur : 092 ms QT Int : 384 ms P-R-T Axes : 069 -13 -05 degrees QTc Int : 426 ms NORMAL SINUS RHYTHM EARLY R WAVE IN V2 WHEN COMPARED WITH ECG OF 06-DEC-2016 08:38, NO SIGNIFICANT CHANGE WAS FOUND Confirmed by JUANA ESCOBAR MD ([id number]) on 04/25/2017 3:01:33 PM Referred By: Confirmed By:JUANA ESCOBAR MD
[2017-04-25] MEDS: methylPREDNISolone NA SUCC 40 MG/1 ML VIAL IVPUSH SCH (20:41)
[2017-04-25] MEDS ORDERED: methylPREDNISolone NA SUCC 40 MG/1 ML VIAL ONE (20:43)
[2017-04-25 22:41] LABS: CPK 705 IU/L (39-308); TROPONIN I < 0.02 ng/ml (0.00-0.05)
[2017-04-25] MEDS: ROSUVASTATIN CA 10 MG TABLET (FP) PO SCH (23:26)
[2017-04-25] MEDS: MONTELUKAST NA 10 MG TABLET PO SCH (23:26)
[2017-04-25] MEDS: RANITIDINE HCL 150 MG TABLET (FP) PO SCH (23:27)
[2017-04-25] MEDS: HEPARIN NA (PORCINE) 5,000 UNITS/ML 1ML VIAL SQ SCH (23:27)
[2017-04-26] MEDS: NYSTATIN 100,000 UNIT/GM TOPICAL CREAM 15 GM TUBE TP SCH ×4 (01:56→22:02)
[2017-04-26] MEDS: BUDESONIDE/FORMETEROL FUMARATE 160/4.5 mcg INHALER IH SCH ×4 (01:56→22:02)
[2017-04-26] MEDS: methylPREDNISolone NA SUCC 40 MG/1 ML VIAL IVPUSH SCH ×3 (02:39→17:33)
[2017-04-26] MEDS: ALBUTEROL SO4 2.5/IPRATROPIUM 0.5 INH SOL 3 ML VIAL.NEB. NEB PRN ×4 (06:52→22:00)
[2017-04-26 08:02] LABS: CHOLESTEROL 130 mg/dL (50-200)
[2017-04-26] MEDS ORDERED: PT OWN MED DRAWER 7, Y5N ONE (09:48)
[2017-04-26] MEDS: HEPARIN NA (PORCINE) 5,000 UNITS/ML 1ML VIAL SQ SCH ×2 (09:56→22:03)
[2017-04-26] MEDS: ASPIRIN COATED 81 MG TABLET.EC PO SCH (09:56)
[2017-04-26] MEDS: TAMSULOSIN HCL 0.4 MG CAP.ER.24H (FP) PO SCH (09:56)
[2017-04-26] MEDS: RANITIDINE HCL 150 MG TABLET (FP) PO SCH ×2 (09:56→22:02)
[2017-04-26] MEDS: FLUTICASONE PROP 0.05% 16 GM NASAL SPRAY NS SCH (12:00)
--- NOTE | 2017-04-26 13:07 | CON.CARD ---
Consult Consult Specialty:: cardiology Referred by:: Lucila Reason for Consultation:: Shortness of breath - History of Present Illness Chief Complaint: Shortness of breath History of Present Illness: The patient is a 71-year-old man, former smoker, with a history of diabetes, hypertension, COPD/asthma, admitted on 04/25/2017 with progressive dyspnea on effort, and URI symptoms. The patient denies chest pains. His breathing improved. Denies palpitations nor any other associated symptoms. 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 No: AFIB, Aneurysm, Aortic Insufficiency, Aortic Stenosis, CAD, CHF, Deep Vein Thrombosis, Hyperlipdemia, ID, Mitral Insufficiency, Mitral Stenosis, Murmur, Pulmonary Hypertension, Other Pulmonary: Yes: Asthma, COPD Gastrointestinal: Yes: Ulcerative Colitis (PULM/CCM ). No: Ascites, Cancer, Constipation, Crohn's Disease, Diverticulitis, Diverticulosis, Esophageal Varices, Gastritis, GERD, GI Bleed, Hemorrhoids, Hiatal Hernia, Inflamatory Bowel Disease, Irritable Bowel Disease, Pancreatitis, Peptic Ulcer Disease, Other Hepatobiliary: No: Cirrhosis, Cholelithiasis, Cholecystitis, Choledocholithiasis , Hepatitis A, Hepatitis B, Hepatitis C, Other Renal/: No: Renal Failure, Renal Inusuff, BPH, Cancer, Hematuria, Hemodialysis , Neurogenic Bladder, Renal Calculi, UTI, Other Heme/Onc: No: Anemia, B12 Deficiency, Bleeding Disorder, Cancer, Current Chemotherapy, Current Radiation Therapy, Hemochromatosis, Hypercoaguable State, Myeloproliferative Synd, Sickle Cell Disease, Sickle Cell Trait, Thrombocytopenia, Other Infectious Disease: No: AIDS, C-Diff, Herpes Zoster, HIV, MRSA, STD's, Tuberculosis, VREF, Other Psych: No: Addictions, Anxiety, Bipolar, Depression, Panic, Psychosis, Schizophrenia, Other Musculoskeletal: No: Bursitis, Chronic low back pain, Hemiparesis, Hemiplegia, Osteoarthritis, Paraplegia, Other Rheumatology: No: Fibromyalgia, Gout, Lupus, Rheumatoid Arthritis, Sarcoidosis, Vasculitis, Other ENT: No: Allergic Rhinitis, Sinusitis, Other Endocrine: Yes: Diabetes Mellitus. No: Lassen's Disease, Pako's Disease, Diabetes Insipidus, Hyperparathyroidism, Hyperthyroidism, Hypothyroidism, Osteopenia, SIADH, Other Dermatology: No: Basal Cell, Cellulitis, Eczema, Melanoma, Psoriasis, Squamous Cell, Other - Alcohol/Substance Use Hx Alcohol Use: No - Smoking History Smoking history: Former smoker Have you smoked in the past 12 months: No Aproximately how many cigarettes per day: 0 If you are a former smoker, when did you quit?: 2001 Home Medications - Allergies Allergies/Adverse Reactions: Allergies Allergy/AdvReac Type Severity Reaction Status Date / Time ibuprofen [From Advil] Allergy Unknown Vomiting Verified 04/25/17 12:25 azithromycin [From Zithromax] AdvReac Mild Vomiting Verified 04/25/17 12:25 - Home Medications Home Medications: Ambulatory Orders Aspirin [ASA -] 81 mg PO DAILY #0 tab.chew 07/31/14 Albuterol Sulfate Inhaler - [Ventolin HFA Inhaler -] 1 - 2 inh PO Q4H PRN #1 inhaler 01/11/16 Furosemide [Lasix -] 40 mg PO DAILY tablet 10/04/16 Montelukast Na [Singulair -] 10 mg PO HS tablet 10/04/16 Rosuvastatin [Crestor -] 10 mg PO DAILY 12/05/16 Tamsulosin HCl [Flomax -] 0.4 mg PO DAILY 12/05/16 Tiotropium Br/Olodaterol HCl [Stiolto Respimat Inhal [place]] 4 gm IH DAILY Budesonide/Formeterol Fumarate [SYMBICORT 80/4.5mcg -] 2 puff IH BID #1 inhaler 12/08/16 Cefuroxime Axetil [Ceftin -] 500 mg PO BID #10 tablet 12/08/16 Prednisone [Deltasone -] 40 mg PO DAILY #20 tablet 12/08/16 Ranitidine [Zantac -] 150 mg PO DAILY #30 tablet 12/08/16 Fluticasone Prop 0.05% Nasal [Flonase -] 1 - 2 spray NS BID #1 bottle 01/07/17 Nystatin Cream [Mycostatin Cream -] 1 applic TP BID #1 tube 04/04/17 Prednisone 40 mg PO DAILY 3 Days #12 tablet 04/04/17 Review of Systems - Review of Systems Constitutional: reports: Weakness Eyes: reports: No Symptoms HENT: reports: No Symptoms Neck: reports: No Symptoms Cardiovascular: reports: No Symptoms Respiratory: reports: Cough, SOB Gastrointestinal: reports: No Symptoms Genitourinary: reports: No Symptoms Breasts: reports: No Symptoms Reported Musculoskeletal: reports: No Symptoms Integumentary: reports: No Symptoms Neurological: reports: No Symptoms Endocrine: reports: No Symptoms Hematology/Lymphatic: reports: No Symptoms Psychiatric: reports: No Symptoms Vital Signs: Vital Signs Temperature 97.8 F 04/26/17 05:24 Pulse Rate 89 04/26/17 05:24 Respiratory Rate 20 04/26/17 05:24 Blood Pressure 139/72 04/26/17 05:24 O2 Sat by Pulse Oximetry (%) 96 04/26/17 00:28 Constitutional: Yes: Well Nourished, No Distress, Calm Eyes: Yes: WNL, Conjunctiva Clear HENT: Yes: WNL, Atraumatic, Normocephalic Neck: Yes: WNL, Supple, Trachea Midline Respiratory: Yes: Other (Distant breath sounds with poor air movement, no rales/ wheezes) Gastrointestinal: Yes: WNL, Normal Bowel Sounds, Soft Renal/: Yes: WNL Cardiovascular: Yes: WNL, Regular Rate and Rhythm JVD: No Carotid Bruit: No PMI: Non-Displaced Heart Sounds: Yes: S1, S2 Murmur: Yes: Systolic Murmur, Grade 2 Musculoskeletal: Yes: WNL Extremities: Yes: WNL Edema: No Peripheral Pulses WNL: Yes Neurological: Yes: WNL, Alert, Oriented ...Motor Strength: WNL Psychiatric: Yes: WNL - Other Data Labs, Other Data: CBC, BMP 04/25/17 13:40 04/25/17 13:40 INR, PTT INR 1.12 (0.82-1.09) 04/25/17 13:40 Troponin, BNP 04/25/17 04/25/17 13:40 21:40 Troponin I < 0.02 < 0.02 B-Natriuretic Peptide 78.00 Troponin, BNP 04/25/17 04/25/17 13:40 21:40 Troponin I < 0.02 < 0.02 B-Natriuretic Peptide 78.00 Assessment/Plan 71-year-old man who is a former smoker, now presenting with URI symptoms and shortness of breath. The patient is clinically and symptomatically better. There is no evidence of ischemia nor acute coronary syndrome. No CHF. The ECG shows normal sinus rhythm. There are no acute ECG changes. The patient is stable from the cardiac standpoint. There is no need for further cardiac workup at this point. There is no need for cardiac monitoring. I would like to follow the patient as outpatient. Please do not hesitate to call us PRN
--- NOTE | 2017-04-26 15:49 | CONSULT ---
Consultation: REQUESTING PROVIDER: CONSULT REQUEST: We have been asked to medically evaluate this patient for COPD exacerbation. HISTORY OF PRESENT ILLNESS: 71M w/ hx of COPD (not on home O2), asthma, CHF, DM, HTN, and DVT presenting with 2 weeks of SOB. Per patient, the SOB has been persistent and similar to previous COPD exacerbations. The SOB was preceded by rhinorrhea, nasal congestion, and productive cough of yellow sputum, and it has been accompanied by wheezing. He denies fevers, chills, recent travel, sick contacts, chest pain , abdominal pain, n/v/d/c, and dysuria. He had gone to the ED for this a while ago and was sent home on prednisone without relief. He subsequently went to his PCP who sent him home on more prednisone and a Z-pack, again without relief. Per pt, he takes all his medications as directed, and he sees a captain assistant, Dr. Gomez. He endorses a 40 pack year smoking hx and remote cocaine use, denies alcohol consumption. 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 REVIEW OF SYSTEMS: CONSTITUTIONAL: Absent: fever, chills, diaphoresis, generalized weakness, malaise, loss of appetite, weight change HEENT: Absent: throat pain, throat swelling, difficulty swallowing, mouth swelling, ear pain, eye pain, visual changes present: rhinorrhea, nasal congestion CARDIOVASCULAR: Absent: chest pain, syncope, palpitations, irregular heart rate, lightheadedness , peripheral edema RESPIRATORY: Absent: stridor, hemoptysis present: cough, SOB, wheezing GASTROINTESTINAL: Absent: abdominal pain, abdominal distension, nausea, vomiting, diarrhea, constipation, melena, hematochezia GENITOURINARY: Absent: dysuria, frequency, urgency, hesitancy, hematuria, flank pain, genital pain MUSCULOSKELETAL: Absent: myalgia, arthralgia, joint swelling, back pain, neck pain SKIN: Absent: rash, itching, pallor HEMATOLOGIC/IMMUNOLOGIC: Absent: easy bleeding, easy bruising, lymphadenopathy, frequent infections ENDOCRINE: Absent: unexplained weight gain, unexplained weight loss, heat intolerance, cold intolerance NEUROLOGIC: Absent: headache, focal weakness or paresthesias, dizziness, unsteady gait, seizure, mental status changes, bladder or bowel incontinence PSYCHIATRIC: Absent: anxiety, depression, suicidal or homicidal ideation, hallucinations. PHYSICAL EXAMINATION Vital Signs - 24 hr 04/25/17 04/25/17 04/25/17 20:19 20:30 23:01 Temperature 98.2 F Pulse Rate 78 Respiratory 20 Rate Blood Pressure 152/84 O2 Sat by Pulse 96 98 Oximetry (%) 04/25/17 04/25/17 04/26/17 23:10 23:20 00:28 Temperature 98.2 F Pulse Rate 78 Respiratory 20 Rate Blood Pressure 152/84 O2 Sat by Pulse 96 96 Oximetry (%) 04/26/17 04/26/17 02:38 05:24 Temperature 98.2 F 97.8 F Pulse Rate 85 89 Respiratory 20 20 Rate Blood Pressure 127/60 139/72 O2 Sat by Pulse Oximetry (%) GENERAL: pleasant, elderly male, awake, alert, and fully oriented, in no acute distress. HEENT: EOMI, NC, AT NECK: Normal range of motion, supple without lymphadenopathy, JVD, or masses. LUNGS: diffuse mild expiratory wheezes HEART: Regular rate and rhythm, normal S1 and S2 without murmur, rub or gallop. ABDOMEN: Soft, nontender, not distended, normoactive bowel sounds, no guarding, no rebound, no masses. No hepatomegaly or splenomegaly. MUSCULOSKELETAL: trace b/l LE edema NEUROLOGICAL: Cranial nerves II-XII intact. Normal speech. PSYCHIATRIC: Cooperative. Good eye contact. Appropriate mood and affect. SKIN: Warm, dry, normal turgor, no rashes or lesions noted. Laboratory Results - last 24 hr 04/25/17 04/25/17 04/26/17 21:40 23:02 05:05 POC Glucometer 243 Hemoglobin A1c % Creatine Kinase 705 H Creatine Kinase Index 2.3 CK-MB (CK-2) 16.715 H Troponin I < 0.02 Triglycerides 28 L D Cholesterol 130 D Total LDL Cholesterol 32 D HDL Cholesterol 96 H D 04/26/17 04/26/17 05:05 06:01 POC Glucometer 156 Hemoglobin A1c % 7.0 H D Creatine Kinase Creatine Kinase Index CK-MB (CK-2) Troponin I Triglycerides Cholesterol Total LDL Cholesterol HDL Cholesterol Active Medications Generic Name Dose Route Start Last Admin Trade Name Freq PRN Reason Stop Dose Admin Albuterol/Ipratropium 1 amp 04/25/17 20:23 04/26/17 14:03 Duoneb - NEB 1 amp Q6H PRN Administration SHORTNESS OF BREATH Aspirin 81 mg 04/26/17 10:00 04/26/17 09:56 Ecotrin - PO 81 mg DAILY BRIT Administration Budesonide/Formoterol Fumarate 1 puff 04/25/17 22:00 04/26/17 09:57 Symbicort 160/4.5mcg - IH Not Given BID BRIT Fluticasone Propionate 2 spray 04/26/17 10:00 Flonase - NS DAILY [facility] Heparin Sodium (Porcine) 5,000 unit 04/25/17 22:00 04/26/17 09:56 Heparin - SQ Not Given BID [facility] Methylprednisolone Sodium Succinate 40 mg 04/25/17 20:30 04/26/17 09:56 Solu-Medrol - IVPUSH 40 mg Q8H-IV BRIT Administration Montelukast Sodium 10 mg 04/25/17 22:00 04/25/17 23:26 Singulair - PO 10 mg HS BRIT Administration Nystatin 1 applic 04/25/17 22:00 04/26/17 09:59 Mycostatin Cream - TP Not Given BID BRIT Ranitidine HCl 150 mg 04/25/17 22:00 04/26/17 09:56 Zantac - PO 150 mg BID BRIT Administration Rosuvastatin Calcium 10 mg 04/25/17 22:00 04/25/17 23:26 Crestor - PO 10 mg HS BRIT Administration Tamsulosin HCl 0.4 mg 04/26/17 08:30 04/26/17 09:56 Flomax - PO 0.4 mg DAILY@0830 BRIT Administration CXR: borderline cardiomegaly, no definite infiltrate or effusion CT sinuses: left maxillary sinus fluid accumulation suggestive of acute sinusitis ASSESSMENT/PLAN: 71M w/ hx of COPD (not on home O2), asthma, CHF, DM, HTN, and DVT presenting with 2 weeks of SOB. #SOB -likely 2/2 COPD exacerbation -continue home meds including singulair and symbicort -continue solumedrol -change duonebs to standing -add albuterol PRN -add guaifenesin to help pt expectorate -already received course of abx as outpt. pt not febrile and no leukocytosis. Would not add abx at this point #nasal congestion/rhinorrhea -likely 2/2 acute viral sinusitis -s/p course of z-pack -would not add any more abx at this point #pulmonary nodule -pt reports that last f/u CT was over a year ago -CT chest to f/u pulm nodule now Rest of care per medical team Plan discussed with attending, Dr. Jason. Dispo: We will continue to follow the patient. Thank you for this consultative opportunity. -Patrice Bryant MD PGY1 Pulmonology Team Visit type - Emergency Visit Emergency Visit: Yes ED Registration Date: 04/25/17 Care time: The patient presented to the Emergency Department on the above date and was hospitalized for further evaluation of their emergent condition. - New Patient This patient is new to me today: Yes Date on this admission: 04/26/17 - Critical Care Critical Care patient: No
--- NOTE | 2017-04-26 15:51 | PN ---
Teaching Attending Note Name of Resident: Patrice Bryant ATTENDING PHYSICIAN STATEMENT I saw and evaluated the patient. I reviewed the resident's note and discussed the case with the resident. I agree with the resident's findings and plan as documented. SUBJECTIVE: Pt seen and examined with the resident. Briefly, 71yo male former smoker with h/ o HTN, DM, COPD who presents with worsening shortness of breath, cough and wheezing. s/p outpt course of azithromycin, prednisone without significant improvement. Started here on solumedrol with improvement. Cough productive of clear sputum. No fevers or chills. CT chest from 2016 showing RUL nodule which he has not followed up. OBJECTIVE: Last Vital Signs Temp Pulse Resp BP Pulse Ox 97.8 F 89 20 139/72 96 04/26/17 05:24 04/26/17 05:24 04/26/17 05:24 04/26/17 05:24 04/26/17 00:28 Intake & Output 04/23/17 04/24/17 04/25/17 04/26/17 23:59 23:59 23:59 23:59 Intake Total 10 30 Balance 10 30 Weight 249 lb Gen: NAD at rest Heart: RRR Lung: scattered rhonchi, wheezes Abd: soft, nontender Ext: no edema CBC, BMP 04/25/17 13:40 04/25/17 13:40 Active Medications Albuterol/Ipratropium (Duoneb -) 1 amp NEB Q6H PRN PRN Reason: SHORTNESS OF BREATH Last Admin: 04/26/17 14:03 Dose: 1 amp Aspirin (Ecotrin -) 81 mg PO DAILY [facility] Last Admin: 04/26/17 09:56 Dose: 81 mg Budesonide/Formoterol Fumarate (Symbicort 160/4.5mcg -) 1 puff IH BID [facility] Last Admin: 04/26/17 09:57 Dose: Not Given Fluticasone Propionate (Flonase -) 2 spray NS DAILY [facility] Heparin Sodium (Porcine) (Heparin -) 5,000 unit SQ BID [facility] Last Admin: 04/26/17 09:56 Dose: Not Given Methylprednisolone Sodium Succinate (Solu-Medrol -) 40 mg IVPUSH Q8H-IV [facility] Last Admin: 04/26/17 09:56 Dose: 40 mg Montelukast Sodium (Singulair -) 10 mg PO HS [facility] Last Admin: 04/25/17 23:26 Dose: 10 mg Nystatin (Mycostatin Cream -) 1 applic TP BID [facility] Last Admin: 04/26/17 09:59 Dose: Not Given Ranitidine HCl (Zantac -) 150 mg PO BID [facility] Last Admin: 04/26/17 09:56 Dose: 150 mg Rosuvastatin Calcium (Crestor -) 10 mg PO [facility] Last Admin: 04/25/17 23:26 Dose: 10 mg Tamsulosin HCl (Flomax -) 0.4 mg PO DAILY@0830 [facility] Last Admin: 04/26/17 09:56 Dose: 0.4 mg ASSESSMENT AND PLAN: Acute COPD Exacerbation HTN DM Lung Nodule - agree with medrol 40mg q8h - inhaled bronchodilators standing and PRN - cough suppressants - singulair - O2 as needed - repeat CT chest noncontrast - DVT prophylaxis Thank you for this consult King Jason MD
--- NOTE | 2017-04-26 16:05 | HP ---
Admitting History and Physical - Primary Care Physician PCP: David Gaytan - Admission Chief Complaint: cough chest pain sob History of Present Illness: 71M w/ hx of COPD (not on home O2), asthma, CHF, DM, HTN, and DVT presenting with 2 weeks of SOB. Per patient, the SOB has been persistent and similar to previous COPD exacerbations. The SOB was preceded by rhinorrhea, nasal congestion, and productive cough of yellow sputum, and it has been accompanied by wheezing. He denies fevers, chills, recent travel, sick contacts, chest pain , abdominal pain, n/v/d/c, and dysuria. He had gone to the ED for this a while ago and was sent home on prednisone without relief. He subsequently was seen in my office and I sent him home on more prednisone and a Z-pack, again without relief. Per pt, he takes all his medications as directed, and he sees a maint mechanic, Dr. Gomez. He endorses a 40 pack year smoking hx and remote cocaine use, denies alcohol consumption. 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 No: AFIB, Aneurysm, Aortic Insufficiency, Aortic Stenosis, CAD, CHF, Deep Vein Thrombosis, Hyperlipdemia, [place], Mitral Insufficiency, Mitral Stenosis, Murmur, Pulmonary Hypertension, Other Pulmonary: Yes: Asthma, COPD Gastrointestinal: Yes: Ulcerative Colitis (PULM/CCM ). No: Ascites, Cancer, Constipation, Crohn's Disease, Diverticulitis, Diverticulosis, Esophageal Varices, Gastritis, GERD, GI Bleed, Hemorrhoids, Hiatal Hernia, Inflamatory Bowel Disease, Irritable Bowel Disease, Pancreatitis, Peptic Ulcer Disease, Other Hepatobiliary: No: Cirrhosis, Cholelithiasis, Cholecystitis, Choledocholithiasis , Hepatitis A, Hepatitis B, Hepatitis C, Other Renal/: No: Renal Failure, Renal Inusuff, BPH, Cancer, Hematuria, Hemodialysis , Neurogenic Bladder, Renal Calculi, UTI, Other Heme/Onc: No: Anemia, B12 Deficiency, Bleeding Disorder, Cancer, Current Chemotherapy, Current Radiation Therapy, Hemochromatosis, Hypercoaguable State, Myeloproliferative Synd, Sickle Cell Disease, Sickle Cell Trait, Thrombocytopenia, Other Infectious Disease: No: AIDS, C-Diff, Herpes Zoster, HIV, MRSA, STD's, Tuberculosis, VREF, Other Psych: No: Addictions, Anxiety, Bipolar, Depression, Panic, Psychosis, Schizophrenia, Other Musculoskeletal: No: Bursitis, Chronic low back pain, Hemiparesis, Hemiplegia, Osteoarthritis, Paraplegia, Other Rheumatology: No: Fibromyalgia, Gout, Lupus, Rheumatoid Arthritis, Sarcoidosis, Vasculitis, Other ENT: No: Allergic Rhinitis, Sinusitis, Other Endocrine: Yes: Diabetes Mellitus. No: Gary's Disease, Pako's Disease, Diabetes Insipidus, Hyperparathyroidism, Hyperthyroidism, Hypothyroidism, Osteopenia, SIADH, Other Dermatology: No: Basal Cell, Cellulitis, Eczema, Melanoma, Psoriasis, Squamous Cell, Other - Smoking History Smoking history: Former smoker Have you smoked in the past 12 months: No Aproximately how many cigarettes per day: 0 If you are a former smoker, when did you quit?: 2001 - Alcohol/Substance Use Hx Alcohol Use: No Home Medications - Allergies Allergies/Adverse Reactions: Allergies Allergy/AdvReac Type Severity Reaction Status Date / Time ibuprofen [From Advil] Allergy Unknown Vomiting Verified 04/25/17 12:25 azithromycin [From Zithromax] AdvReac Mild Vomiting Verified 04/25/17 12:25 - Home Medications Home Medications: Ambulatory Orders Aspirin [ASA -] 81 mg PO DAILY #0 tab.chew 07/31/14 Albuterol Sulfate Inhaler - [Ventolin HFA Inhaler -] 1 - 2 inh PO Q4H PRN #1 inhaler 01/11/16 Furosemide [Lasix -] 40 mg PO DAILY tablet 10/04/16 Montelukast Na [Singulair -] 10 mg PO HS tablet 10/04/16 Rosuvastatin [Crestor -] 10 mg PO DAILY 12/05/16 Tamsulosin HCl [Flomax -] 0.4 mg PO DAILY 12/05/16 Tiotropium Br/Olodaterol HCl [Stiolto Respimat Inhal [place]] 4 gm IH DAILY Budesonide/Formeterol Fumarate [SYMBICORT 80/4.5mcg -] 2 puff IH BID #1 inhaler 12/08/16 Cefuroxime Axetil [Ceftin -] 500 mg PO BID #10 tablet 12/08/16 Prednisone [Deltasone -] 40 mg PO DAILY #20 tablet 12/08/16 Ranitidine [Zantac -] 150 mg PO DAILY #30 tablet 12/08/16 Fluticasone Prop 0.05% Nasal [Flonase -] 1 - 2 spray NS BID #1 bottle 01/07/17 Nystatin Cream [Mycostatin Cream -] 1 applic TP BID #1 tube 04/04/17 Prednisone 40 mg PO DAILY 3 Days #12 tablet 04/04/17 Review of Systems - Review of Systems Constitutional: reports: Malaise Eyes: reports: No Symptoms HENT: reports: No Symptoms Neck: reports: No Symptoms Cardiovascular: reports: Chest Pain Respiratory: reports: Cough, Snoring, SOB Gastrointestinal: reports: No Symptoms Genitourinary: reports: No Symptoms Musculoskeletal: reports: No Symptoms Integumentary: reports: No Symptoms Neurological: reports: No Symptoms Endocrine: reports: No Symptoms Hematology/Lymphatic: reports: No Symptoms Psychiatric: reports: No Symptoms Physical Examination Vital Signs: Vital Signs Temperature 98.6 F 04/26/17 15:48 Pulse Rate 91 H 04/26/17 15:48 Respiratory Rate 18 04/26/17 15:48 Blood Pressure 153/67 04/26/17 15:48 O2 Sat by Pulse Oximetry (%) 96 04/26/17 00:28 Constitutional: Yes: Mild Distress Eyes: Yes: WNL HENT: Yes: WNL Neck: Yes: WNL Cardiovascular: Yes: WNL Respiratory: Yes: Cough, On Nasal O2, Poor Air Entry, Rhonchi, SOB Gastrointestinal: Yes: WNL Renal/: Yes: WNL Musculoskeletal: Yes: WNL Extremities: Yes: WNL Edema: No Peripheral Pulses WNL: Yes Integumentary: Yes: WNL Wound/Incision: Yes: Clean/Dry Neurological: Yes: WNL ...Motor Strength: WNL Psychiatric: Yes: WNL Labs: CBC, BMP 04/25/17 13:40 04/25/17 13:40 Imaging - Results Chest X-ray: Report Reviewed Cat Scan: Report Reviewed Problem List - Problems (1) Acute exacerbation of chronic obstructive pulmonary disease (COPD) Code(s): J44.1 - CHRONIC OBSTRUCTIVE PULMONARY DISEASE W (ACUTE) EXACERBATION (2) COPD (chronic obstructive pulmonary disease) Code(s): J44.9 - CHRONIC OBSTRUCTIVE PULMONARY DISEASE, UNSPECIFIED Qualifiers: COPD type: COPD with acute exacerbation Qualified Code(s): J44.1 - Chronic obstructive pulmonary disease with (acute) exacerbation (3) COPD exacerbation Code(s): J44.1 - CHRONIC OBSTRUCTIVE PULMONARY DISEASE W (ACUTE) EXACERBATION (4) Dyspnea Code(s): R06.00 - DYSPNEA, UNSPECIFIED Qualifiers: Dyspnea type: dyspnea on exertion Qualified Code(s): R06.09 - Other forms of dyspnea (5) Elevated CK-MB level Code(s): R74.8 - ABNORMAL LEVELS OF OTHER SERUM ENZYMES (6) HTN (hypertension) Code(s): I10 - ESSENTIAL (PRIMARY) HYPERTENSION Qualifiers: Hypertension type: essential hypertension Qualified Code(s): I10 - Essential (primary) hypertension (7) DM (diabetes mellitus) Code(s): E11.9 - TYPE 2 DIABETES MELLITUS WITHOUT COMPLICATIONS Qualifiers: 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
[2017-04-26] MEDS: INSULIN SLIDING SCALE (NOVOLOG) 1 VIAL SQ SCH ×2 (17:32→22:09)
[2017-04-26] MEDS: guaiFENesin/D-M SUGAR-FREE/ACLHOL-FREE 118 ML BOTTLE PO PRN (17:33)
[2017-04-26] MEDS: MONTELUKAST NA 10 MG TABLET PO SCH (22:02)
[2017-04-26] MEDS: ROSUVASTATIN CA 10 MG TABLET (FP) PO SCH (22:02)
[2017-04-27] MEDS: methylPREDNISolone NA SUCC 40 MG/1 ML VIAL IVPUSH SCH ×3 (01:21→17:56)
[2017-04-27] MEDS: guaiFENesin/D-M SUGAR-FREE/ACLHOL-FREE 118 ML BOTTLE PO PRN ×3 (01:21→17:54)
[2017-04-27] MEDS: INSULIN SLIDING SCALE (NOVOLOG) 1 VIAL SQ SCH ×4 (06:45→22:28)
[2017-04-27] MEDS: RANITIDINE HCL 150 MG TABLET (FP) PO SCH ×2 (09:40→22:27)
[2017-04-27] MEDS: BUDESONIDE/FORMETEROL FUMARATE 160/4.5 mcg INHALER IH SCH ×2 (09:40→22:32)
[2017-04-27] MEDS: TAMSULOSIN HCL 0.4 MG CAP.ER.24H (FP) PO SCH (09:40)
[2017-04-27] MEDS: ASPIRIN COATED 81 MG TABLET.EC PO SCH (09:40)
[2017-04-27] MEDS: HEPARIN NA (PORCINE) 5,000 UNITS/ML 1ML VIAL SQ SCH ×2 (09:40→22:27)
[2017-04-27] MEDS: NYSTATIN 100,000 UNIT/GM TOPICAL CREAM 15 GM TUBE TP SCH ×2 (09:41→22:35)
[2017-04-27] MEDS: FLUTICASONE PROP 0.05% 16 GM NASAL SPRAY NS SCH (10:10)
--- NOTE | 2017-04-27 13:04 | PN ---
Progress Note (short form) - Note Progress Note: PULMONARY VSS/AFEBRILE SITTING UP IN BED DRY COUGH PERSISTS ANICTERIC DISTANT BREATH SOUNDS BILATERALLY S1S2 BS+ OBESE NO EDEMA LABS/MEDS/NOTES/IMAGES REVIEWED WBC 11.9 A1C 7.0 Acute COPD Exacerbation HTN DM Lung Nodule - steroids - inhaled bronchodilators standing and PRN - cough suppressants - singulair - O2 as needed - repeat CT chest noncontrast ordered today - DVT prophylaxsis Jori HERNANDEZ MD
--- NOTE | 2017-04-27 15:23 | PN ---
Physical Exam: SUBJECTIVE: Patient seen and examined. No acute events overnight. Pt reports that his breathing is much better than yesterday, but his cough is still productive of yellow sputum. He denies any new symptoms. OBJECTIVE: Vital Signs Period Temp Pulse Resp BP Sys/Hall Pulse Ox Last 24 Hr 97.7 F-98.9 F 81-91 18-20 128-153/61-80 95-95 GENERAL: pleasant, elderly male, awake, alert, and fully oriented, in no acute distress. HEENT: EOMI, NC, AT NECK: Normal range of motion, supple without lymphadenopathy, JVD, or masses. LUNGS: tight lung sounds, mild inspiratory wheezing HEART: Regular rate and rhythm, normal S1 and S2 without murmur, rub or gallop. ABDOMEN: Soft, nontender, not distended, normoactive bowel sounds, no guarding, no rebound, no masses. No hepatomegaly or splenomegaly. MUSCULOSKELETAL: trace b/l LE edema NEUROLOGICAL: Cranial nerves II-XII intact. Normal speech. PSYCHIATRIC: Cooperative. Good eye contact. Appropriate mood and affect. SKIN: Warm, dry, normal turgor, no rashes or lesions noted. Laboratory Results - last 24 hr 04/26/17 04/26/17 04/27/17 17:31 22:03 06:44 POC Glucometer 151 215 185 Active Medications Generic Name Dose Route Start Last Admin Trade Name Freq PRN Reason Stop Dose Admin Albuterol/Ipratropium 1 amp 04/25/17 20:23 04/26/17 22:00 Duoneb - NEB 1 amp Q6H PRN Administration SHORTNESS OF BREATH Aspirin 81 mg 04/26/17 10:00 04/27/17 09:40 Ecotrin - PO 81 mg DAILY [facility] Administration Budesonide/Formoterol Fumarate 1 puff 04/25/17 22:00 04/27/17 09:40 Symbicort 160/4.5mcg - IH 1 puff BID [facility] Administration Fluticasone Propionate 2 spray 04/26/17 10:00 04/27/17 10:10 Flonase - NS 2 sprays DAILY [facility] Administration Guaifenesin 10 ml 04/26/17 16:01 04/27/17 09:41 Diabetic Tussin Dm - PO 10 ml Q6H PRN Administration COUGH Heparin Sodium (Porcine) 5,000 unit 04/25/17 22:00 04/27/17 09:40 Heparin - SQ 5,000 unit BID [facility] Administration Insulin Aspart 1 vial 04/26/17 16:30 04/27/17 12:23 Novolog Vial Sliding Scale - SQ Not Given ACHS [facility] Protocol Methylprednisolone Sodium Succinate 40 mg 04/25/17 20:30 04/27/17 10:12 Solu-Medrol - IVPUSH 40 mg Q8H-IV [facility] Administration Montelukast Sodium 10 mg 04/25/17 22:00 04/26/17 22:02 Singulair - PO 10 mg HS [facility] Administration Nystatin 1 applic 04/25/17 22:00 04/27/17 09:41 Mycostatin Cream - TP 1 applic BID [facility] Administration Ranitidine HCl 150 mg 04/25/17 22:00 04/27/17 09:40 Zantac - PO 150 mg BID [facility] Administration Rosuvastatin Calcium 10 mg 04/25/17 22:00 04/26/17 22:02 Crestor - PO 10 mg HS [facility] Administration Tamsulosin HCl 0.4 mg 04/26/17 08:30 04/27/17 09:40 Flomax - PO 0.4 mg DAILY@0830 [facility] Administration ASSESSMENT/PLAN: 71M w/ hx of COPD (not on home O2), asthma, CHF, DM, HTN, and DVT presenting with 2 weeks of SOB. #SOB -likely 2/2 COPD exacerbation -continue home meds including singulair and symbicort -solumedrol -duonebs -albuterol PRN -guaifenesin #nasal congestion/rhinorrhea -likely 2/2 acute viral sinusitis -s/p course of z-pack -would not add any more abx at this point #pulmonary nodule -pt reports that last f/u CT was over a year ago -CT chest: stable pulmonary nodule Rest of care per medical team Plan discussed with attending, Dr. Barahona. Dispo: We will continue to follow the patient. Thank you for this consultative opportunity. -Patrice Bryant MD PGY1 Pulmonology Team Visit type - Emergency Visit Emergency Visit: Yes ED Registration Date: 04/25/17 Care time: The patient presented to the Emergency Department on the above date and was hospitalized for further evaluation of their emergent condition. - New Patient This patient is new to me today: No - Critical Care Critical Care patient: No
--- NOTE | 2017-04-27 16:08 | PN ---
Progress Note, Physician Chief Complaint: AWAKE AND ALERT MILD COUGH AND SOB - Current Medication List Current Medications: Active Medications Albuterol/Ipratropium (Duoneb -) 1 amp NEB Q6H PRN PRN Reason: SHORTNESS OF BREATH Last Admin: 04/26/17 22:00 Dose: 1 amp Aspirin (Ecotrin -) 81 mg PO DAILY [facility] Last Admin: 04/27/17 09:40 Dose: 81 mg Budesonide/Formoterol Fumarate (Symbicort 160/4.5mcg -) 1 puff IH BID [facility] Last Admin: 04/27/17 09:40 Dose: 1 puff Fluticasone Propionate (Flonase -) 2 spray NS DAILY [facility] Last Admin: 04/27/17 10:10 Dose: 2 sprays Guaifenesin (Diabetic Tussin Dm -) 10 ml PO Q6H PRN PRN Reason: COUGH Last Admin: 04/27/17 09:41 Dose: 10 ml Heparin Sodium (Porcine) (Heparin -) 5,000 unit SQ BID [facility] Last Admin: 04/27/17 09:40 Dose: 5,000 unit Insulin Aspart (Novolog Vial Sliding Scale -) 1 vial SQ ACHS [facility] PRN Reason: Protocol Last Admin: 04/27/17 12:23 Dose: Not Given Methylprednisolone Sodium Succinate (Solu-Medrol -) 40 mg IVPUSH Q8H-IV [facility] Last Admin: 04/27/17 10:12 Dose: 40 mg Montelukast Sodium (Singulair -) 10 mg PO HS [facility] Last Admin: 04/26/17 22:02 Dose: 10 mg Nystatin (Mycostatin Cream -) 1 applic TP BID [facility] Last Admin: 04/27/17 09:41 Dose: 1 applic Ranitidine HCl (Zantac -) 150 mg PO BID [facility] Last Admin: 04/27/17 09:40 Dose: 150 mg Rosuvastatin Calcium (Crestor -) 10 mg PO HS [facility] Last Admin: 04/26/17 22:02 Dose: 10 mg Tamsulosin HCl (Flomax -) 0.4 mg PO DAILY@0830 [facility] Last Admin: 04/27/17 09:40 Dose: 0.4 mg - Objective Vital Signs: Vital Signs Temperature 98.7 F 04/27/17 11:00 Pulse Rate 82 04/27/17 11:00 Respiratory Rate 18 04/27/17 11:00 Blood Pressure 128/79 04/27/17 11:00 O2 Sat by Pulse Oximetry (%) 95 04/27/17 11:00 Constitutional: Yes: Mild Distress Eyes: Yes: WNL HENT: Yes: WNL Neck: Yes: WNL Cardiovascular: Yes: WNL Respiratory: Yes: WNL, On Nasal O2, Poor Air Entry, Rhonchi, SOB Gastrointestinal: Yes: WNL Genitourinary: Yes: WNL Musculoskeletal: Yes: WNL Extremities: Yes: WNL Edema: No Peripheral Pulses WNL: Yes Integumentary: Yes: WNL Wound/Incision: Yes: Clean/Dry Neurological: Yes: WNL ...Motor Strength: WNL Psychiatric: Yes: WNL Labs: CBC, BMP 04/25/17 13:40 04/25/17 13:40 INR, PTT INR 1.12 (0.82-1.09) 04/25/17 13:40 Problem List - Problems (1) Acute exacerbation of chronic obstructive pulmonary disease (COPD) Code(s): J44.1 - CHRONIC OBSTRUCTIVE PULMONARY DISEASE W (ACUTE) EXACERBATION (2) COPD (chronic obstructive pulmonary disease) Code(s): J44.9 - CHRONIC OBSTRUCTIVE PULMONARY DISEASE, UNSPECIFIED Qualifiers: COPD type: COPD with acute exacerbation Qualified Code(s): J44.1 - Chronic obstructive pulmonary disease with (acute) exacerbation (3) COPD exacerbation Code(s): J44.1 - CHRONIC OBSTRUCTIVE PULMONARY DISEASE W (ACUTE) EXACERBATION (4) Dyspnea Code(s): R06.00 - DYSPNEA, UNSPECIFIED Qualifiers: Dyspnea type: dyspnea on exertion Qualified Code(s): R06.09 - Other forms of dyspnea (5) Elevated CK-MB level Code(s): R74.8 - ABNORMAL LEVELS OF OTHER SERUM ENZYMES (6) HTN (hypertension) Code(s): I10 - ESSENTIAL (PRIMARY) HYPERTENSION Qualifiers: Hypertension type: essential hypertension Qualified Code(s): I10 - Essential (primary) hypertension (7) DM (diabetes mellitus) Code(s): E11.9 - TYPE 2 DIABETES MELLITUS WITHOUT COMPLICATIONS Qualifiers: 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
[2017-04-27] MEDS ORDERED: PT OWN MED DRAWER 7, Y5N ONE ×2 (18:06→22:22)
[2017-04-27] MEDS: ALBUTEROL SO4 2.5/IPRATROPIUM 0.5 INH SOL 3 ML VIAL.NEB. NEB PRN (18:43)
[2017-04-27] MEDS: ROSUVASTATIN CA 10 MG TABLET (FP) PO SCH (22:27)
[2017-04-27] MEDS: MONTELUKAST NA 10 MG TABLET PO SCH (22:27)
[2017-04-28] MEDS: methylPREDNISolone NA SUCC 40 MG/1 ML VIAL IVPUSH SCH ×2 (02:31→09:59)
[2017-04-28] MEDS: INSULIN SLIDING SCALE (NOVOLOG) 1 VIAL SQ SCH ×5 (06:34→22:10)
[2017-04-28] MEDS ORDERED: PT OWN MED DRAWER 7, Y5N ONE (09:55)
[2017-04-28] MEDS: FLUTICASONE PROP 0.05% 16 GM NASAL SPRAY NS SCH (09:57)
[2017-04-28] MEDS: BUDESONIDE/FORMETEROL FUMARATE 160/4.5 mcg INHALER IH SCH ×2 (09:57→22:09)
[2017-04-28] MEDS: guaiFENesin/D-M SUGAR-FREE/ACLHOL-FREE 118 ML BOTTLE PO PRN (09:58)
[2017-04-28] MEDS: NYSTATIN 100,000 UNIT/GM TOPICAL CREAM 15 GM TUBE TP SCH ×2 (09:58→22:09)
[2017-04-28] MEDS: RANITIDINE HCL 150 MG TABLET (FP) PO SCH ×2 (09:59→22:10)
[2017-04-28] MEDS: TAMSULOSIN HCL 0.4 MG CAP.ER.24H (FP) PO SCH (09:59)
[2017-04-28] MEDS: ASPIRIN COATED 81 MG TABLET.EC PO SCH (09:59)
[2017-04-28] MEDS: HEPARIN NA (PORCINE) 5,000 UNITS/ML 1ML VIAL SQ SCH ×2 (10:00→22:10)
--- NOTE | 2017-04-28 10:45 | PN ---
Progress Note, Physician Chief Complaint: AWAKE ALERT SLIGHT IMPROVEMENT - Current Medication List Current Medications: Active Medications Albuterol/Ipratropium (Duoneb -) 1 amp NEB Q6H PRN PRN Reason: SHORTNESS OF BREATH Last Admin: 04/27/17 18:43 Dose: 1 amp Aspirin (Ecotrin -) 81 mg PO DAILY [facility] Last Admin: 04/28/17 09:59 Dose: 81 mg Budesonide/Formoterol Fumarate (Symbicort 160/4.5mcg -) 1 puff IH BID [facility] Last Admin: 04/28/17 09:57 Dose: 1 puff Fluticasone Propionate (Flonase -) 2 spray NS DAILY [facility] Last Admin: 04/28/17 09:57 Dose: 2 sprays Guaifenesin (Diabetic Tussin Dm -) 10 ml PO Q6H PRN PRN Reason: COUGH Last Admin: 04/28/17 09:58 Dose: 10 ml Heparin Sodium (Porcine) (Heparin -) 5,000 unit SQ BID [facility] Last Admin: 04/28/17 10:00 Dose: 5,000 unit Insulin Aspart (Novolog Vial Sliding Scale -) 1 vial SQ ACHS [facility] PRN Reason: Protocol Last Admin: 04/28/17 06:34 Dose: Not Given Methylprednisolone Sodium Succinate (Solu-Medrol -) 40 mg IVPUSH Q8H-IV [facility] Last Admin: 04/28/17 09:59 Dose: 40 mg Montelukast Sodium (Singulair -) 10 mg PO HS [facility] Last Admin: 04/27/17 22:27 Dose: 10 mg Nystatin (Mycostatin Cream -) 1 applic TP BID [facility] Last Admin: 04/28/17 09:58 Dose: 1 applic Ranitidine HCl (Zantac -) 150 mg PO BID [facility] Last Admin: 04/28/17 09:59 Dose: 150 mg Rosuvastatin Calcium (Crestor -) 10 mg PO HS [facility] Last Admin: 04/27/17 22:27 Dose: 10 mg Tamsulosin HCl (Flomax -) 0.4 mg PO DAILY@0830 [facility] Last Admin: 04/28/17 09:59 Dose: 0.4 mg - Objective Vital Signs: Vital Signs Temperature 98.3 F 04/28/17 06:00 Pulse Rate 65 04/28/17 06:00 Respiratory Rate 20 04/28/17 06:00 Blood Pressure 127/55 04/28/17 06:00 O2 Sat by Pulse Oximetry (%) 95 04/27/17 21:00 Constitutional: Yes: Mild Distress Eyes: Yes: WNL HENT: Yes: WNL Neck: Yes: WNL Cardiovascular: Yes: WNL Respiratory: Yes: On Nasal O2, Poor Air Entry, SOB Gastrointestinal: Yes: WNL Genitourinary: Yes: WNL Musculoskeletal: Yes: Muscle Weakness Extremities: Yes: WNL Edema: No Peripheral Pulses WNL: Yes Integumentary: Yes: WNL Wound/Incision: Yes: Clean/Dry Neurological: Yes: WNL ...Motor Strength: WNL Psychiatric: Yes: WNL Labs: CBC, BMP 04/25/17 13:40 04/25/17 13:40 INR, PTT INR 1.12 (0.82-1.09) 04/25/17 13:40 Problem List - Problems (1) Acute exacerbation of chronic obstructive pulmonary disease (COPD) Code(s): J44.1 - CHRONIC OBSTRUCTIVE PULMONARY DISEASE W (ACUTE) EXACERBATION (2) COPD (chronic obstructive pulmonary disease) Code(s): J44.9 - CHRONIC OBSTRUCTIVE PULMONARY DISEASE, UNSPECIFIED Qualifiers: COPD type: COPD with acute exacerbation Qualified Code(s): J44.1 - Chronic obstructive pulmonary disease with (acute) exacerbation (3) COPD exacerbation Code(s): J44.1 - CHRONIC OBSTRUCTIVE PULMONARY DISEASE W (ACUTE) EXACERBATION (4) Dyspnea Code(s): R06.00 - DYSPNEA, UNSPECIFIED Qualifiers: Dyspnea type: dyspnea on exertion Qualified Code(s): R06.09 - Other forms of dyspnea (5) Elevated CK-MB level Code(s): R74.8 - ABNORMAL LEVELS OF OTHER SERUM ENZYMES (6) HTN (hypertension) Code(s): I10 - ESSENTIAL (PRIMARY) HYPERTENSION Qualifiers: Hypertension type: essential hypertension Qualified Code(s): I10 - Essential (primary) hypertension (7) DM (diabetes mellitus) Code(s): E11.9 - TYPE 2 DIABETES MELLITUS WITHOUT COMPLICATIONS Qualifiers: 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
--- NOTE | 2017-04-28 13:19 | PN ---
Physical Exam: SUBJECTIVE: Patient seen and examined. No acute events overnight. Pt has no complaints. He states that his breathing is fully improved, and his cough is almost entirely resolved. OBJECTIVE: Vital Signs Period Temp Pulse Resp BP Sys/Hall Pulse Ox Last 24 Hr 97.8 F-98.3 F 65-72 20-20 127-139/55-59 95-95 GENERAL: pleasant, elderly male, awake, alert, and fully oriented, in no acute distress. HEENT: EOMI, NC, AT NECK: Normal range of motion, supple without lymphadenopathy, JVD, or masses. LUNGS: still tight lung sounds, no wheezing, no rales, no rhonchi HEART: Regular rate and rhythm, normal S1 and S2 without murmur, rub or gallop. ABDOMEN: Soft, nontender, not distended, normoactive bowel sounds, no guarding, no rebound, no masses. No hepatomegaly or splenomegaly. MUSCULOSKELETAL: trace b/l LE edema NEUROLOGICAL: Cranial nerves II-XII intact. Normal speech. PSYCHIATRIC: Cooperative. Good eye contact. Appropriate mood and affect. SKIN: Warm, dry, normal turgor, no rashes or lesions noted. Laboratory Results - last 24 hr 04/27/17 04/27/17 04/28/17 16:56 22:26 06:33 POC Glucometer 182 196 156 04/28/17 11:45 POC Glucometer 164 Active Medications Generic Name Dose Route Start Last Admin Trade Name Freq PRN Reason Stop Dose Admin Albuterol/Ipratropium 1 amp 04/25/17 20:23 04/27/17 18:43 Duoneb - NEB 1 amp Q6H PRN Administration SHORTNESS OF BREATH Aspirin 81 mg 04/26/17 10:00 04/28/17 09:59 Ecotrin - PO 81 mg DAILY [facility] Administration Budesonide/Formoterol Fumarate 1 puff 04/25/17 22:00 04/28/17 09:57 Symbicort 160/4.5mcg - IH 1 puff BID [facility] Administration Fluticasone Propionate 2 spray 04/26/17 10:00 04/28/17 09:57 Flonase - NS 2 sprays DAILY [facility] Administration Guaifenesin 10 ml 04/26/17 16:01 04/28/17 09:58 Diabetic Tussin Dm - PO 10 ml Q6H PRN Administration COUGH Heparin Sodium (Porcine) 5,000 unit 04/25/17 22:00 04/28/17 10:00 Heparin - SQ 5,000 unit BID [facility] Administration Insulin Aspart 1 vial 04/26/17 16:30 04/28/17 12:24 Novolog Vial Sliding Scale - SQ Not Given ACHS [facility] Protocol Methylprednisolone Sodium Succinate 40 mg 04/25/17 20:30 04/28/17 09:59 Solu-Medrol - IVPUSH 40 mg Q8H-IV [facility] Administration Montelukast Sodium 10 mg 04/25/17 22:00 04/27/17 22:27 Singulair - PO 10 mg HS [facility] Administration Nystatin 1 applic 04/25/17 22:00 04/28/17 09:58 Mycostatin Cream - TP 1 applic BID [facility] Administration Ranitidine HCl 150 mg 04/25/17 22:00 04/28/17 09:59 Zantac - PO 150 mg BID [facility] Administration Rosuvastatin Calcium 10 mg 04/25/17 22:00 04/27/17 22:27 Crestor - PO 10 mg HS [facility] Administration Tamsulosin HCl 0.4 mg 04/26/17 08:30 04/28/17 09:59 Flomax - PO 0.4 mg DAILY@0830 [facility] Administration ASSESSMENT/PLAN: 71M w/ hx of COPD (not on home O2), asthma, CHF, DM, HTN, and DVT presenting with 2 weeks of SOB. #SOB- improved -likely 2/2 COPD exacerbation -continue home meds including singulair and symbicort -steroids -duonebs -albuterol PRN -guaifenesin #nasal congestion/rhinorrhea -likely 2/2 acute viral sinusitis -s/p course of z-pack -would not add any more abx at this point #pulmonary nodule -pt reports that last f/u CT was over a year ago -CT chest: stable pulmonary nodule Rest of care per medical team Plan to be discussed with attending, Dr. Negron. Dispo: We will continue to follow the patient. Thank you for this consultative opportunity. -Patrice Bryant MD PGY1 Pulmonology Team Visit type - Emergency Visit Emergency Visit: Yes ED Registration Date: 04/25/17 Care time: The patient presented to the Emergency Department on the above date and was hospitalized for further evaluation of their emergent condition. - New Patient This patient is new to me today: No - Critical Care Critical Care patient: No
--- NOTE | 2017-04-28 15:12 | PN ---
Progress Note (short form) - Note Progress Note: PULMONARY VSS/AFEBRILE SITTING UP IN BED DRY COUGH PERSISTS ANICTERIC DISTANT BREATH SOUNDS BILATERALLY S1S2 BS+ OBESE NO EDEMA LABS/MEDS/NOTES/IMAGES REVIEWED CT CHEST REVIEWED Acute COPD Exacerbation HTN DM Lung Nodule - steroids changed to oral - inhaled bronchodilators standing and PRN - cough suppressants - singulair - O2 as needed - DVT prophylaxsis - check spo2 pre/post on r/a Jori HERNANDEZ MD
[2017-04-28] MEDS: predniSONE 10 MG TABLET (UD) PO SCH (17:12)
[2017-04-28] MEDS: MONTELUKAST NA 10 MG TABLET PO SCH (22:09)
[2017-04-28] MEDS: ROSUVASTATIN CA 10 MG TABLET (FP) PO SCH (22:10)
[2017-04-29] MEDS: INSULIN SLIDING SCALE (NOVOLOG) 1 VIAL SQ SCH (06:58)
[2017-04-29] MEDS: TAMSULOSIN HCL 0.4 MG CAP.ER.24H (FP) PO SCH (08:32)
--- NOTE | 2017-04-29 09:03 | DS ---
Physical Examination Vital Signs: Vital Signs Temperature 97.9 F 04/29/17 05:42 Pulse Rate 65 04/29/17 05:42 Respiratory Rate 20 04/29/17 05:42 Blood Pressure 150/89 04/29/17 05:42 O2 Sat by Pulse Oximetry (%) 94 L 04/28/17 21:00 Constitutional: Yes: Mild Distress Eyes: Yes: WNL HENT: Yes: WNL Neck: Yes: WNL Cardiovascular: Yes: WNL Respiratory: Yes: WNL Gastrointestinal: Yes: WNL Musculoskeletal: Yes: WNL Extremities: Yes: WNL Edema: No Peripheral Pulses WNL: Yes Integumentary: Yes: WNL Wound/Incision: Yes: Clean/Dry Neurological: Yes: WNL ...Motor Strength: WNL Psychiatric: Yes: WNL Labs: CBC, BMP 04/25/17 13:40 04/25/17 13:40 Discharge Summary Reason For Visit: ELEVATED CK-MB LEVEL Current Active Problems Acute exacerbation of chronic obstructive pulmonary disease (COPD) (Acute) COPD (chronic obstructive pulmonary disease) (Acute) COPD exacerbation (Acute) Dyspnea (Acute) Elevated CK-MB level (Acute) HTN (hypertension) (Acute) Procedures: Principal: ct scan chest Hospital Course: admitted copd acute on chronic exacerbation, iv steroids, nebs resp support, improved see patient in 1 week Condition: Improved - Instructions Diet, Activity, Other Instructions: low sodium/ada see dr parikh 1 week Referrals: David Parikh MD [Primary Care Provider] - Disposition: HOME - Home Medications Comprehensive Discharge Medication List: Ambulatory Orders Aspirin [ASA -] 81 mg PO DAILY #0 tab.chew 07/31/14 Albuterol Sulfate Inhaler - [Ventolin HFA Inhaler -] 1 - 2 inh PO Q4H PRN #1 inhaler 01/11/16 Furosemide [Lasix -] 40 mg PO DAILY tablet 10/04/16 Montelukast Na [Singulair -] 10 mg PO HS tablet 10/04/16 Rosuvastatin [Crestor -] 10 mg PO DAILY 12/05/16 Tamsulosin HCl [Flomax -] 0.4 mg PO DAILY 12/05/16 Tiotropium Br/Olodaterol HCl [Stiolto Respimat Inhal [place]] 4 gm IH DAILY Budesonide/Formeterol Fumarate [SYMBICORT 80/4.5mcg -] 2 puff IH BID #1 inhaler 12/08/16 Cefuroxime Axetil [Ceftin -] 500 mg PO BID #10 tablet 12/08/16 Ranitidine [Zantac -] 150 mg PO DAILY #30 tablet 12/08/16 Fluticasone Prop 0.05% Nasal [Flonase -] 1 - 2 spray NS BID #1 bottle 01/07/17 Nystatin Cream [Mycostatin Cream -] 1 applic TP BID #1 tube 04/04/17 Prednisone 40 mg PO DAILY 3 Days #12 tablet 04/04/17 Prednisone [Deltasone -] 30 mg PO DAILY tablet 04/29/17
[2017-04-29] MEDS ORDERED: PT OWN MED DRAWER 7, Y5N ONE (10:09)
[2017-04-29] MEDS: ASPIRIN COATED 81 MG TABLET.EC PO SCH (10:24)
[2017-04-29] MEDS: predniSONE 10 MG TABLET (UD) PO SCH (10:24)
[2017-04-29] MEDS: RANITIDINE HCL 150 MG TABLET (FP) PO SCH (10:24)
[2017-04-29] MEDS: FLUTICASONE PROP 0.05% 16 GM NASAL SPRAY NS SCH (10:25)
[2017-04-29] MEDS: HEPARIN NA (PORCINE) 5,000 UNITS/ML 1ML VIAL SQ SCH ×2 (10:25→10:30)
[2017-04-29] MEDS: BUDESONIDE/FORMETEROL FUMARATE 160/4.5 mcg INHALER IH SCH (10:26)
[2017-04-29 12:33] VITALS: BP 142/84; PULSE 82; TEMP 97.8
== END 2017-04-29 12:56 | disposition home or self-care (01) | DRG 192 ==
LOC: JER 12:22 → JERBED 18:05 → J4W 21:23 → J6S 04-27 14:38
PROVIDERS: ADMIT Family Medicine; ATTEND Family Medicine
DX: J44.1 Chronic obstructive pulmonary disease with (acute) exacerbation (principal); E11.9 Type 2 diabetes mellitus without complications; Z87.891 Personal history of nicotine dependence; I11.0 Hypertensive heart disease with heart failure; I50.9 Heart failure, unspecified; Z86.718 Personal history of other venous thrombosis and embolism; R91.1 Solitary pulmonary nodule; Z79.4 Long term (current) use of insulin
CPT/HCPCS: 36415; 70486-TC; 71010-TC; 71250-TC; 80053; 80061; 82550; 82553; 83036; 83721; 83880; 84484; 85025; 85610; 87040; 93005; 93010; 94640; 94761; 99285-25; J1644

== ENCOUNTER 2017-06-24 13:14 | Inpatient (IN) | payer OTHER ==
[2017-06-24] MEDS ORDERED: ALBUTEROL SO4 2.5/IPRATROPIUM 0.5 INH SOL 3 ML VIAL.NEB. NEB ONE ×2 (13:24→14:41)
[2017-06-24 13:25] VITALS: BMI 31.9
--- NOTE | 2017-06-24 14:38 | PDOC ---
History of Present Illness - General History Source: Patient Exam Limitations: No Limitations - History of Present Illness Initial Comments: 06/24/17 15:10 The patient is a 71 year old male with a significant PMH of COPD, CHF (on Lasix) , past DVT, diabetes, HTN, and asthma who presents to the emergency department with increased shortness of breath and cough beginning approximately 2 days ago. He describes his cough as productive of yellow sputum with associated shortness of breath that is aggravated by exertion. The patient reports his O2 sat was 90% at triage. The patient reports being outside recently while it was raining. The patient denies chest pain. The patient denies headache and dizziness. Denies fever, chills, nausea, vomit, diarrhea and constipation. Denies dysuria, frequency, urgency and hematuria. Allergies: Ibuprofen, Azithromycin. Past surgical history: None reported. Social history: Former smoker. No reported alcohol or drug use. PCP: Dr. Gaytan <Altaf Noyola - Last Filed: 06/24/17 15:09> <Sarah Dominguez - Last Filed: 06/27/17 14:01> - General Chief Complaint: Shortness of Breath Stated Complaint: SOB Time Seen by Provider: 06/24/17 14:06 Past History <Altaf Noyola - Last Filed: 06/24/17 15:09> - Past Medical History Anemia: No Asthma: Yes Cardiac Disorders: Yes (CHF) CVA: No COPD: Yes CHF: Yes DVT: Yes Dementia: No Diabetes: Yes GI Disorders: No Disorders: Yes (ENLARGED PROSTATE) HTN: Yes Hypercholesterolemia: No Liver Disease: No Seizures: No Thyroid Disease: No - Surgical History Abdominal Surgery: No Appendectomy: No Cardiac Surgery: No Cholecystectomy: No - Immunization History Immunization Up to Date: Yes - Suicide/Smoking/Psychosocial Hx Smoking Status: No Smoking History: Former smoker Have you smoked in the past 12 months: No Number of Cigarettes Smoked Daily: 0 If you are a former smoker, when did you quit?: 2001 Information on smoking cessation initiated: No 'Breaking Loose' booklet given: 01/08/12 Hx Alcohol Use: No Drug/Substance Use Hx: No Substance Use Type: None Hx Substance Use Treatment: No <Sarah Dominguez - Last Filed: 06/27/17 14:01> - Past Medical History Allergies/Adverse Reactions: Allergies Allergy/AdvReac Type Severity Reaction Status Date / Time ibuprofen [From Advil] Allergy Unknown Vomiting Verified 06/24/17 13:18 azithromycin [From Zithromax] AdvReac Mild Vomiting Verified 06/24/17 13:18 Home Medications: Ambulatory Orders Aspirin [ASA -] 81 mg PO DAILY #0 tab.chew 07/31/14 Albuterol Sulfate Inhaler - [Ventolin HFA Inhaler -] 1 - 2 inh PO Q4H PRN #1 inhaler 01/11/16 Furosemide [Lasix -] 40 mg PO DAILY tablet 10/04/16 Montelukast Na [Singulair -] 10 mg PO HS tablet 10/04/16 Rosuvastatin [Crestor -] 10 mg PO DAILY 12/05/16 Tamsulosin HCl [Flomax -] 0.4 mg PO DAILY 12/05/16 Budesonide/Formeterol Fumarate [SYMBICORT 80/4.5mcg -] 2 puff IH BID #1 inhaler 12/08/16 Ranitidine [Zantac -] 150 mg PO DAILY #30 tablet 12/08/16 Fluticasone Prop 0.05% Nasal [Flonase -] 1 - 2 spray NS BID #1 bottle 01/07/17 Albuterol 0.083% Nebulizer Jacki [Ventolin 0.083% Nebulizer Soln -] 1 neb NEB Q4H PRN #100 vial MDD 6 06/27/17 Cefuroxime Axetil [Ceftin -] 500 mg PO Q12H #10 tablet 06/27/17 Oseltamivir Phosphate [Tamiflu -] 75 mg PO BID #7 capsule 06/27/17 Prednisone 10 mg PO DAILY #20 tablet 06/27/17 predniSONE [Deltasone -] 40 mg PO DAILY #10 tablet 06/27/17 Review of Systems - Review of Systems Able to Perform ROS?: Yes Comments:: 06/24/17 15:10 GENERAL/CONSTITUTIONAL: No fever or chills. No weakness. HEAD, EYES, EARS, NOSE AND THROAT: No change in vision. No ear pain or discharge. No sore throat. CARDIOVASCULAR: No chest pain or shortness of breath. RESPIRATORY: (+) Shortness of breath. (+) Productive cough. No wheezing or hemoptysis. GASTROINTESTINAL: No nausea, vomiting, diarrhea or constipation. GENITOURINARY: No dysuria, frequency, or change in urination. MUSCULOSKELETAL: No joint or muscle swelling or pain. No neck or back pain. SKIN: No rash NEUROLOGIC: No headache, vertigo, loss of consciousness, or change in strength/ sensation. ENDOCRINE: No increased thirst. No abnormal weight change. HEMATOLOGIC/LYMPHATIC: No anemia, easy bleeding, or history of blood clots. ALLERGIC/IMMUNOLOGIC: No hives or skin allergy. <Altaf Noyola - Last Filed: 06/24/17 15:09> *Physical Exam - Vital Signs Last Vital Signs Temp Pulse Resp BP Pulse Ox 100.2 F H 104 H 26 H 143/79 90 L 06/24/17 13:19 06/24/17 13:19 06/24/17 13:19 06/24/17 13:19 06/24/17 13:19 <Altaf Noyola - Last Filed: 06/24/17 15:09> - Vital Signs Last Vital Signs Temp Pulse Resp BP Pulse Ox 100.2 F H 104 H 26 H 143/79 90 L 06/24/17 13:19 06/24/17 13:19 06/24/17 13:19 06/24/17 13:19 06/24/17 13:19 - Physical Exam Comments: GENERAL: Awake, alert, and fully oriented, in no acute distress. Appears ill but nontoxic. HEAD: No signs of trauma EYES: PERRLA, EOMI, sclera anicteric, conjunctiva clear ENT: Auricles normal inspection, hearing grossly normal, nares patent, oropharynx clear without exudates. Moist mucosa NECK: Normal ROM, supple, no lymphadenopathy, JVD, or masses LUNGS: Breath sounds equal, clear to auscultation bilaterally. No wheezes, and no crackles. Intermittent hacking cough. HEART: Regular rate and rhythm, normal S1 and S2, no murmurs, rubs or gallops ABDOMEN: Soft, nontender, normoactive bowel sounds. No guarding, no rebound. No masses EXTREMITIES: Normal range of motion, no edema. No clubbing or cyanosis. No cords, erythema, or tenderness NEUROLOGICAL: Cranial nerves II through XII grossly intact. Normal speech, normal gait SKIN: Warm, Dry, normal turgor, no rashes or lesions noted. <Sarah Dominguez - Last Filed: 06/27/17 14:01> Heart Score/ECG Review - ECG Impressions Comment:: EKG read 18:15- NSR 81 bpm, incomplete RBBB, no ST/T changes <Sarah Dominguez - Last Filed: 06/27/17 14:01> ED Treatment Course - Medications Given in the ED: ED Medications Discontinued Medications Generic Name Dose Route Start Last Admin Trade Name Freq PRN Reason Stop Dose Admin Albuterol/Ipratropium 1 amp 06/24/17 13:24 06/24/17 13:25 Duoneb - NEB 06/24/17 13:25 1 amp NOW ONE Administration <Altaf Noyola - Last Filed: 06/24/17 15:09> - LABORATORY CBC & Chemistry Diagram: 06/25/17 05:36 06/25/17 05:36 - Medications Given in the ED: ED Medications Discontinued Medications Generic Name Dose Route Start Last Admin Trade Name Freq PRN Reason Stop Dose Admin Albuterol/Ipratropium 1 amp 06/24/17 13:24 06/24/17 13:25 Duoneb - NEB 06/24/17 13:25 1 amp NOW ONE Administration <Sarah Dominguez - Last Filed: 06/27/17 14:01> Medical Decision Making - Medical Decision Making 06/24/17 15:37 Pt with history of CHF, will give small fluid boluses, but not 30cc/kg, as this will lead to fluid overload. 06/24/17 16:17 Case d/w Dr. Gaytan, he cautioned that patient is very sensitive to fluids, can easily go into flash pulmonary edema. He will plan for admission. 06/24/17 18:[address] Booker hospitalist as per Dr. Gaytan. <Sarah Dominguez - Last Filed: 06/27/17 14:01> *DC/Admit/Observation/Transfer - Attestations Scribe Attestion: 06/24/17 15:10 Documentation prepared by Altaf Noyola, acting as medical device for Sarah Dominguez MD. <Altaf Noyola - Last Filed: 06/24/17 15:09> - Discharge Dispostion Admit: Yes <Sarah Dominguez - Last Filed: 06/27/17 14:01> Diagnosis at time of Disposition: Asthma Qualifiers: Asthma severity: unspecified severity Asthma persistence: unspecified Asthma complication type: unspecified Qualified Code(s): J45.909 - Unspecified asthma, uncomplicated Pneumonia Qualifiers: Pneumonia type: due to unspecified organism Laterality: unspecified laterality Lung location: unspecified part of lung Qualified Code(s): J18.9 - Pneumonia, unspecified organism - Discharge Dispostion Disposition: HOME Condition at time of disposition: Stable
[2017-06-24] MEDS ORDERED: ACETAMINOPHEN 325 MG TABLET (FP) PO ONE (14:39)
[2017-06-24] MEDS ORDERED: methylPREDNISolone NA SUCC 125 MG/2 ML VIAL IVPUSH ONE (15:00)
[2017-06-24] MEDS ORDERED: guaiFENesin/CODEINE 10 ML UNIT-DOSE CUPS PO ONE (15:00)
[2017-06-24] MEDS ORDERED: CEFTRIAXONE 1 GM in DEXTROSE 5%-WATER - 50 ML IVPB ONE (15:02)
[2017-06-24] MEDS ORDERED: DOXYCYCLINE INJECTION 100 MG in DEXTROSE 5%-WATER - 100 ML IVPB ONE (15:02)
[2017-06-24] MEDS ORDERED: guaiFENesin/CODEINE 5 ML UNIT-DOSE CUPS PO ONE (15:32)
[2017-06-24] MEDS ORDERED: ACETAMINOPHEN 325 MG TABLET (FP) ONE (15:32)
[2017-06-24] MEDS ORDERED: methylPREDNISolone NA SUCC 125 MG/2 ML VIAL ONE (15:33)
[2017-06-24] MEDS ORDERED: CEFTRIAXONE 1 GM/50 ML BAG ONE (15:33)
[2017-06-24] MEDS ORDERED: SODIUM CHLORIDE 500 ML IV STA (15:36)
[2017-06-24] MEDS ORDERED: OSELTAMIVIR PHOSPHATE 75 MG CAPSULE PO ONE (15:49)
[2017-06-24 15:53] LABS: BASO % 0.3 % (0-2.0); EOS % 4.7 % (0-4.5); HEMATOCRIT 43.2 % (35.4-49); HEMOGLOBIN 14.3 GM/dL (11.7-16.9); LYMPH % 5.4 % (8-40); MCH 28.9 pg (25.7-33.7); MCHC 33.1 g/dl (32.0-35.9); MEAN CELL VOLUME 87.4 fl (80-96); MEAN PLT VOLUME 8.6 fl (7.5-11.1); NEUT % 79.6 % (42.8-82.8); PLATELET COUNT 244 K/MM3 (134-434); RBC 4.94 M/mm3 (4.00-5.60); RDW 13.8 % (11.9-15.9); WHITE BLOOD COUNT 10.8 K/mm3 (4.0-10.0)
[2017-06-24 16:05] LABS: ACTIVATED PTT 31.9 SECONDS (26.9-34.4); INR 1.22 (0.82-1.09); PROTHROMBIN TIME (PATIENT) 13.8 SEC (9.98-11.88)
[2017-06-24] MEDS ORDERED: OSELTAMIVIR PHOSPHATE 75 MG CAPSULE ONE (17:24)
[2017-06-24 17:48] LABS: URINE APPEARANCE CLEAR; URINE BILIRUBIN NEGATIVE (NEGATIVE); URINE BLOOD NEGATIVE (NEGATIVE); URINE COLOR YELLOW; URINE GLUCOSE (UA) NEGATIVE (NEGATIVE); URINE KETONE NEGATIVE (NEGATIVE); URINE LEUK ESTERASE NEGATIVE (NEGATIVE); URINE NITRITE NEGATIVE (NEGATIVE); URINE PROTEIN NEGATIVE (NEGATIVE)
[2017-06-24 17:57] LABS: ALBUMIN 3.6 g/dl (3.4-5.0); ANION GAP 8 (8-16); BILIRUBIN,TOTAL 0.7 mg/dL (0.2-1.0); BLOOD UREA NITROGEN 11 mg/dL (7-18); CALCIUM 8.6 mg/dL (8.5-10.1); CHLORIDE 104 mmol/L (98-107); CO2 27 mmol/L (21-32); GLUCOSE,RANDOM 118 mg/dL (74-106); MAGNESIUM 1.7 mg/dL (1.8-2.4); POTASSIUM 4.1 mmol/L (3.5-5.1); SGOT/AST 25 U/L (15-37); SGPT/ALT 37 U/L (12-78); SODIUM 139 mmol/L (136-145); TOT PROT 7.1 g/dl (6.4-8.2)
[2017-06-24 18:00] LABS: ALK PHOS 72 U/L (45-117); N-TERMINAL BNP 149.35 pg/ml (5-125)
--- NOTE | 2017-06-24 22:20 | HP ---
CHIEF COMPLAINT: SOB, cough PCP: Lucila HISTORY OF PRESENT ILLNESS: This is a 71 year old male with a significant past medcial history of COPD, asthma, CHF who presented to the ED with cough productive yellow sputum and increased SOB that worsens with exertion for the past couple of days. Pt denies fever or chills. Denies Chest pain. ER course was notable for: (1) WBC 10.8 (2) given doxy, ceftriaxone, solumedrol Recent Travel: pt denies PAST MEDICAL HISTORY: COPD, asthma, CHF, HTN, DM, BPH PAST SURGICAL HISTORY: pt denies Social History: Smoking: pt denies Alcohol: pt denies Drugs: pt denies Family History: mother age 39, DM, aneurysm father age 57, heart disease, chronic ETOH sister age 72, lung CA brother age 72, stomach CA 1 brother casualty of war one sister alive and well 7 children alive and well Allergies ibuprofen [From Advil] Allergy (Unknown, Verified 06/24/17 13:18) Vomiting azithromycin [From Zithromax] Adverse Reaction (Mild, Verified 06/24/17 13:18) Vomiting HOME MEDICATIONS: 3 Medication Instructions Recorded Aspirin [ASA -] 81 mg PO DAILY #0 tab.chew 07/31/14 Albuterol Sulfate Inhaler - 1 - 2 inh PO Q4H PRN #1 inhaler 01/11/16 [Ventolin HFA Inhaler -] Furosemide [Lasix -] 40 mg PO DAILY tablet 10/04/16 Montelukast Na [Singulair -] 10 mg PO HS tablet 10/04/16 Rosuvastatin [Crestor -] 10 mg PO DAILY 12/05/16 Tamsulosin HCl [Flomax -] 0.4 mg PO DAILY 12/05/16 Budesonide/Formeterol Fumarate 2 puff IH BID #1 inhaler 12/08/16 [SYMBICORT 80/4.5mcg -] Ranitidine [Zantac -] 150 mg PO DAILY #30 tablet 12/08/16 Fluticasone Prop 0.05% Nasal 1 - 2 spray NS BID #1 bottle 01/07/17 [Flonase -] REVIEW OF SYSTEMS CONSTITUTIONAL: Absent: fever, chills, diaphoresis, generalized weakness, malaise, loss of appetite, weight change HEENT: Absent: rhinorrhea, nasal congestion, throat pain, throat swelling, difficulty swallowing, mouth swelling, ear pain, eye pain, visual changes CARDIOVASCULAR: Absent: chest pain, syncope, palpitations, irregular heart rate, lightheadedness , peripheral edema RESPIRATORY: cough, shortness of breath, dyspnea with exertion Absent: orthopnea, wheezing, stridor, hemoptysis GASTROINTESTINAL: Absent: abdominal pain, abdominal distension, nausea, vomiting, diarrhea, constipation, melena, hematochezia GENITOURINARY: Absent: dysuria, frequency, urgency, hesitancy, hematuria, flank pain, genital pain MUSCULOSKELETAL: Absent: myalgia, arthralgia, joint swelling, back pain, neck pain SKIN: Absent: rash, itching, pallor HEMATOLOGIC/IMMUNOLOGIC: Absent: easy bleeding, easy bruising, lymphadenopathy, frequent infections ENDOCRINE: Absent: unexplained weight gain, unexplained weight loss, heat intolerance, cold intolerance NEUROLOGIC: Absent: headache, focal weakness or paresthesias, dizziness, unsteady gait, seizure, mental status changes, bladder or bowel incontinence PSYCHIATRIC: Absent: anxiety, depression, suicidal or homicidal ideation, hallucinations. PHYSICAL EXAMINATION Vital Signs - 24 hr 3 06/24/17 06/24/17 06/24/17 13:19 13:24 15:30 Temperature 100.2 F H 99.4 F Pulse Rate 104 H Pulse Rate [ Apical] Respiratory 26 H Rate Blood Pressure 143/79 Blood Pressure [Left Arm] O2 Sat by Pulse 90 L 2 L Oximetry (%) 3 06/24/17 06/24/17 06/24/17 17:32 19:56 20:13 Temperature 98.8 F Pulse Rate Pulse Rate [ 86 86 Apical] Respiratory 24 20 Rate Blood Pressure Blood Pressure 168/94 166/92 [Left Arm] O2 Sat by Pulse 96 96 Oximetry (%) GENERAL: Awake, alert, and fully oriented, in no acute distress. HEAD: Normal with no signs of trauma. EYES: Pupils equal, round and reactive to light, extraocular movements intact, sclera anicteric, conjunctiva clear. No lid lag. EARS, NOSE, THROAT: Ears normal, nares patent, oropharynx clear without exudates. Moist mucous membranes. NECK: Normal range of motion, supple without lymphadenopathy, JVD, or masses. LUNGS: Diminished bilat bases, scattered expiratory wheezes. No accessory muscle use. HEART: Regular rate and rhythm, normal S1 and S2 without murmur, rub or gallop. ABDOMEN: Soft, nontender, not distended, normoactive bowel sounds, no guarding, no rebound, no masses. No hepatomegaly or splenomegaly. MUSCULOSKELETAL: Normal range of motion at all joints. No bony deformities or tenderness. No CVA tenderness. UPPER EXTREMITIES: 2+ pulses, warm, well-perfused. No cyanosis. No clubbing. No peripheral edema. LOWER EXTREMITIES: 2+ pulses, warm, well-perfused. No calf tenderness. Tr peripheral edema. NEUROLOGICAL: Cranial nerves II-XII intact. Normal speech. Normal gait. PSYCHIATRIC: Cooperative. Good eye contact. Appropriate mood and affect. SKIN: Warm, dry, normal turgor, no rashes or lesions noted, normal capillary refill. Laboratory Results - last 24 hr 3 06/24/17 06/24/17 06/24/17 06/24/17 14:52 15:04 15:04 15:30 WBC 10.8 H RBC 4.94 Hgb 14.3 Hct 43.2 MCV 87.4 MCH 28.9 MCHC 33.1 RDW 13.8 Plt Count 244 MPV 8.6 Neutrophils % 79.6 D Lymphocytes % 5.4 L D Monocytes % 10.0 Eosinophils % 4.7 H Basophils % 0.3 PT with INR 13.80 H INR 1.22 H PTT (Actin FS) 31.9 Sodium Cancelled Potassium Cancelled Chloride Cancelled Carbon Dioxide Cancelled Anion Gap Cancelled BUN Cancelled Creatinine Cancelled Creat Clearance w eGFR Cancelled Random Glucose Cancelled Lactic Acid 2.2 H* Calcium Cancelled Magnesium Total Bilirubin Cancelled AST Cancelled ALT Cancelled Alkaline Phosphatase Cancelled Creatine Kinase Cancelled Creatine Kinase Index CK-MB (CK-2) Troponin I Cancelled B-Natriuretic Peptide Total Protein Cancelled Albumin Cancelled Urine Color Urine Appearance Urine pH Ur Specific [place] Urine Protein Urine Glucose (UA) Urine Ketones Urine Blood Urine Nitrite Urine Bilirubin Urine Urobilinogen Ur Leukocyte Esterase Blood Type Antibody Screen 3 06/24/17 06/24/17 06/24/17 16:40 17:15 17:15 WBC RBC Hgb Hct MCV MCH MCHC RDW Plt Count MPV Neutrophils % Lymphocytes % Monocytes % Eosinophils % Basophils % PT with INR INR PTT (Actin FS) Sodium 139 Potassium 4.1 Chloride 104 Carbon Dioxide 27 Anion Gap 8 BUN 11 Creatinine 1.0 Creat Clearance w eGFR > 60 Random Glucose 118 H Lactic Acid 1.5 Calcium 8.6 Magnesium 1.7 L Total Bilirubin 0.7 D AST 25 D ALT 37 D Alkaline Phosphatase 72 Creatine Kinase 379 H Creatine Kinase Index 0.9 CK-MB (CK-2) 3.675 H Troponin I < 0.02 B-Natriuretic Peptide 149.35 H Total Protein 7.1 Albumin 3.6 Urine Color Yellow Urine Appearance Clear Urine pH 7.0 D Ur Specific [place] 1.019 Urine Protein Negative Urine Glucose (UA) Negative Urine Ketones Negative Urine Blood Negative Urine Nitrite Negative Urine Bilirubin Negative Urine Urobilinogen 2.0 Ur Leukocyte Esterase Negative Blood Type Antibody Screen ECG normal sinus rhythm vent rate 81 QTC 434 incomplete RBBB no acute ST elevations or depressions Radiology Reports Portable chest x-ray, AP sitting Since 04/25/2017, the cardiac silhouette remains top limits of normal in size with unfolding of the aortic arch. Bilateral increased interstitial lung markings are present. Mediastinum and visualized osseous structures appear intact IMPRESSION: No significant interval change. Persistent bilateral increased interstitial lung markings. Please correlate with prior CT scan of the chest findings dated 04/27/2017 Reported By: Shanta Bryant MD 06/24/17 1620 ASSESSMENT/PLAN: 71yM with PMH COPD, asthma, CHF, HTN, DM, BPH presented with increased SOB, cough with productive sputum. Pneumonia/COPD exac - Empirically treating for PNA based on symptoms despite neg CXR. - cont doxy and ceftriaxone - solumedrol 40mg Q6H - pulmonary consult - will empirically treat for influenza as well. No reagent for influenza testing available in lab. - cont home singulair - duonebs QID CHF - will cont home lasix regimen, no s/s fluid overload HTN - on only lasix, cont same, monitor BP BPH - cont home tamsulosin DM - novolog SS QID-AC/HS DVT PPX - heparin 5000u Q8h FEN - defer IVF - BMP in am - low sodium diabetic diet. Dispo: Pt currently requires inpatient management of his emergent condition. Visit type - Emergency Visit Emergency Visit: Yes ED Registration Date: 06/24/17 Care time: The patient presented to the Emergency Department on the above date and was hospitalized for further evaluation of their emergent condition. - New Patient This patient is new to me today: Yes Date on this admission: 06/24/17 - Critical Care Critical Care patient: No
[2017-06-24] MEDS: ALBUTEROL SO4 2.5/IPRATROPIUM 0.5 INH SOL 3 ML VIAL.NEB. NEB SCH (23:34)
[2017-06-24] MEDS: FLUTICASONE PROP 0.05% 16 GM NASAL SPRAY NS SCH (23:34)
[2017-06-24] MEDS: BUDESONIDE/FORMETEROL FUMARATE 80/4.5 mcg INHALER IH SCH (23:34)
[2017-06-24] MEDS: MONTELUKAST NA 10 MG TABLET PO SCH (23:34)
[2017-06-24] MEDS: ROSUVASTATIN CA 10 MG TABLET (FP) PO SCH (23:34)
[2017-06-25] MEDS: methylPREDNISolone NA SUCC 40 MG/1 ML VIAL IVPUSH SCH ×4 (03:10→21:53)
[2017-06-25] MEDS ORDERED: methylPREDNISolone NA SUCC 40 MG/1 ML VIAL ONE (04:48)
[2017-06-25] MEDS ORDERED: ACETAMINOPHEN 325 MG TABLET (FP) ONE (04:48)
[2017-06-25 05:49] LABS: BASO % 0.5 % (0-2.0); EOS % 0.3 % (0-4.5); HEMATOCRIT 40.9 % (35.4-49); HEMOGLOBIN 13.4 GM/dL (11.7-16.9); LYMPH % 6.3 % (8-40); MCH 28.5 pg (25.7-33.7); MCHC 32.7 g/dl (32.0-35.9); MEAN CELL VOLUME 87.3 fl (80-96); MONO % 9.1 % (3.8-10.2); NEUT % 83.8 % (42.8-82.8); PLATELET COUNT 223 K/MM3 (134-434); RBC 4.68 M/mm3 (4.00-5.60); RDW 13.8 % (11.9-15.9); WHITE BLOOD COUNT 8.6 K/mm3 (4.0-10.0)
[2017-06-25 06:11] LABS: ANION GAP 7 (8-16); BLOOD UREA NITROGEN 14 mg/dL (7-18); CALCIUM 8.1 mg/dL (8.5-10.1); CHLORIDE 104 mmol/L (98-107); CO2 27 mmol/L (21-32); GLUCOSE,RANDOM 147 mg/dL (74-106); MAGNESIUM 1.8 mg/dL (1.8-2.4); PHOSPHOROUS 3.4 mg/dL (2.5-4.9); POTASSIUM 4.3 mmol/L (3.5-5.1); SODIUM 138 mmol/L (136-145)
[2017-06-25] MEDS: HEPARIN NA (PORCINE) 5,000 UNITS/ML 1ML VIAL SQ SCH ×3 (06:22→21:53)
[2017-06-25] MEDS ORDERED: ACETAMINOPHEN 500 MG TABLET (FP) PO ONE (06:29)
[2017-06-25] MEDS: INSULIN SLIDING SCALE (NOVOLOG) 1 VIAL SQ SCH ×4 (06:32→22:45)
[2017-06-25] MEDS ORDERED: INSULIN (NOVOLOG) ASPART 100 UNITS/ML 10ML VIAL ONE ×3 (06:59→22:41)
[2017-06-25] MEDS ORDERED: HEPARIN NA (PORCINE) 5,000 UNITS/ML 1ML VIAL ONE ×2 (07:00→21:12)
[2017-06-25] MEDS ORDERED: ALBUTEROL SO4 2.5/IPRATROPIUM 0.5 INH SOL 3 ML VIAL.NEB. NEB ONE ×4 (08:10→21:11)
[2017-06-25] MEDS: ALBUTEROL SO4 2.5/IPRATROPIUM 0.5 INH SOL 3 ML VIAL.NEB. NEB SCH ×4 (08:10→21:53)
--- NOTE | 2017-06-25 08:52 | EKG ---
Test Reason : Blood Pressure : / mmHG Vent. Rate : 081 BPM Atrial Rate : 081 BPM P-R Int : 132 ms QRS Dur : 108 ms QT Int : 374 ms P-R-T Axes : 046 -02 021 degrees QTc Int : 434 ms NORMAL SINUS RHYTHM INCOMPLETE RIGHT BUNDLE BRANCH BLOCK NONSPECIFIC T WAVE ABNORMALITY ABNORMAL ECG WHEN COMPARED WITH ECG OF 25-APR-2017 13:52, ST LESS DEPRESSED IN INFERIOR LEADS Confirmed by NAYE MYERS, THIAGO ([id number]) on 06/25/2017 8:51:54 AM Referred By: Confirmed By:THIAGO YANCEY MD
[2017-06-25] MEDS ORDERED: DOXYCYCLINE INJECTION 100 MG in DEXTROSE 5%-WATER - 100 ML IVPB SCH (10:00)
[2017-06-25] MEDS: TAMSULOSIN HCL 0.4 MG CAP.ER.24H (FP) PO SCH (10:05)
[2017-06-25] MEDS: ASPIRIN 81 MG CHEWABLE TABLETS PO SCH (10:05)
[2017-06-25] MEDS: OSELTAMIVIR PHOSPHATE 75 MG CAPSULE PO SCH ×2 (10:05→22:45)
[2017-06-25] MEDS: RANITIDINE HCL 150 MG TABLET (FP) PO SCH (10:05)
[2017-06-25] MEDS: BUDESONIDE/FORMETEROL FUMARATE 80/4.5 mcg INHALER IH SCH ×2 (10:05→21:53)
[2017-06-25] MEDS: FLUTICASONE PROP 0.05% 16 GM NASAL SPRAY NS SCH ×2 (10:05→22:05)
[2017-06-25] MEDS ORDERED: CEFTRIAXONE 1 GM/50 ML BAG ONE (10:19)
[2017-06-25] MEDS: CEFTRIAXONE 1 G/50 ML PREMIX 50 ML IVPB SCH (10:33)
--- NOTE | 2017-06-25 14:08 | PN ---
Progress Note, Physician History of Present Illness: FEELS BETTER STILL WITH A COUGH - Current Medication List Current Medications: Active Medications Albuterol/Ipratropium (Duoneb -) 1 amp NEB RQID [facility] Last Admin: 06/25/17 12:08 Dose: 1 amp Aspirin (Asa -) 81 mg PO DAILY [facility] Last Admin: 06/25/17 10:05 Dose: 81 mg Budesonide/Formoterol Fumarate (Symbicort 80/4.5mcg -) 2 puff IH BID [facility] Last Admin: 06/25/17 10:05 Dose: 2 puff Fluticasone Propionate (Flonase -) 1 spray NS BID [facility] Last Admin: 06/25/17 10:05 Dose: 1 spray Heparin Sodium (Porcine) (Heparin -) 5,000 unit SQ TID [facility] Last Admin: 06/25/17 06:22 Dose: 5,000 unit CEFTRIAXONE 1 G/50 ML PREMIX (Ceftriaxone 1 Gm-D5w Bag) 50 mls @ 100 mls/hr IVPB DAILY [facility] Last Admin: 06/25/17 10:33 Dose: 100 mls/hr Doxycycline Hyclate 100 mg/ (Dextrose) 100 mls @ 50 mls/hr IVPB BID [facility] Last Admin: 06/25/17 10:05 Dose: 50 mls/hr Insulin Aspart (Novolog Vial Sliding Scale -) 1 vial SQ HS [facility] PRN Reason: Protocol Insulin Aspart (Novolog Vial Sliding Scale -) 1 vial SQ TIDAC [facility] PRN Reason: Protocol Last Admin: 06/25/17 12:05 Dose: 2 units Methylprednisolone Sodium Succinate (Solu-Medrol -) 40 mg IVPUSH Q6H-IV [facility] Last Admin: 06/25/17 10:05 Dose: 40 mg Montelukast Sodium (Singulair -) 10 mg PO HS [facility] Last Admin: 06/24/17 23:34 Dose: 10 mg Oseltamivir Phosphate (Tamiflu -) 75 mg PO BID [facility] Stop: 06/30/17 09:59 Last Admin: 06/25/17 10:05 Dose: 75 mg Ranitidine HCl (Zantac -) 150 mg PO DAILY [facility] Last Admin: 06/25/17 10:05 Dose: 150 mg Rosuvastatin Calcium (Crestor -) 10 mg PO HS [facility] Last Admin: 06/24/17 23:34 Dose: 10 mg Tamsulosin HCl (Flomax -) 0.4 mg PO DAILY@0830 [facility] Last Admin: 06/25/17 10:05 Dose: 0.4 mg - Objective Vital Signs: Vital Signs Temperature 97.9 F 06/25/17 07:17 Pulse Rate 85 06/25/17 11:17 Respiratory Rate 14 06/25/17 07:17 Blood Pressure 125/59 06/25/17 11:17 O2 Sat by Pulse Oximetry (%) 97 06/25/17 11:17 Cardiovascular: Yes: S1, S2 Respiratory: Yes: On Nasal O2, Rhonchi, Wheezes Gastrointestinal: Yes: Normal Bowel Sounds, Soft. No: Tenderness Edema: No Neurological: Yes: Alert, Oriented Labs: CBC, BMP 06/25/17 05:36 06/25/17 05:36 INR, PTT INR 1.22 (0.82-1.09) H 06/24/17 15:30 Assessment/Plan Pneumonia/COPD exac - Empirically treating for PNA based on symptoms despite neg CXR. - cont doxy and ceftriaxone - solumedrol 40mg Q6H - pulmonary consult and ID consult - will empirically treat for influenza as well. No reagent for influenza testing available in lab. - cont home singulair - duonebs QID CHF - will cont home lasix regimen, no s/s fluid overload HTN - on only lasix, cont same, monitor BP BPH - cont home tamsulosin DM - novolog SS QID-AC/HS DVT PPX - heparin 5000u Q8h
--- NOTE | 2017-06-25 15:10 | CON.ID ---
Consult Consult Specialty:: infectious disease Referred by:: adalberto Reason for Consultation:: fever/cough - History of Present Illness Chief Complaint: weakness cough History of Present Illness: 71 year old man went Tuesday to see urologist (no procedures), On Tuesday he had weakness and cough, he felt terrible with extreme fatigue and weakness harsh cough persisted with low grade temp and he came to ED yellow sputum no hemoptysis lives alone no vomiting or diarrhea no travel in ED pulse ox was 90% - History Source History Provided By: Patient Limitations to Obtaining History: No Limitations - Past Medical History Cardio/Vascular: Yes: HTN. No: AFIB, Aneurysm, Aortic Insufficiency, Aortic Stenosis, CAD, CHF, Deep Vein Thrombosis, Hyperlipdemia, [place], Mitral Insufficiency, Mitral Stenosis, Murmur, Pulmonary Hypertension, Other Pulmonary: Yes: Asthma, COPD Gastrointestinal: Yes: Ulcerative Colitis (PULM/CCM ). No: Ascites, Cancer, Constipation, Crohn's Disease, Diverticulitis, Diverticulosis, Esophageal Varices, Gastritis, GERD, GI Bleed, Hemorrhoids, Hiatal Hernia, Inflamatory Bowel Disease, Irritable Bowel Disease, Pancreatitis, Peptic Ulcer Disease, Other Endocrine: Yes: Diabetes Mellitus. No: Max's Disease, Pako's Disease, Diabetes Insipidus, Hyperparathyroidism, Hyperthyroidism, Hypothyroidism, Osteopenia, SIADH, Other - Alcohol/Substance Use Hx Alcohol Use: No - Smoking History Smoking history: Former smoker Have you smoked in the past 12 months: No Aproximately how many cigarettes per day: 0 If you are a former smoker, when did you quit?: 2001 - Social History Usual Living Arrangement: Alone ADL: Independent History of Recent Travel: No Home Medications - Allergies Allergies/Adverse Reactions: Allergies Allergy/AdvReac Type Severity Reaction Status Date / Time ibuprofen [From Advil] Allergy Unknown Vomiting Verified 06/24/17 13:18 azithromycin [From Zithromax] AdvReac Mild Vomiting Verified 06/24/17 13:18 - Home Medications Home Medications: Ambulatory Orders Aspirin [ASA -] 81 mg PO DAILY #0 tab.chew 07/31/14 Albuterol Sulfate Inhaler - [Ventolin HFA Inhaler -] 1 - 2 inh PO Q4H PRN #1 inhaler 01/11/16 Furosemide [Lasix -] 40 mg PO DAILY tablet 10/04/16 Montelukast Na [Singulair -] 10 mg PO HS tablet 10/04/16 Rosuvastatin [Crestor -] 10 mg PO DAILY 12/05/16 Tamsulosin HCl [Flomax -] 0.4 mg PO DAILY 12/05/16 Budesonide/Formeterol Fumarate [SYMBICORT 80/4.5mcg -] 2 puff IH BID #1 inhaler 12/08/16 Ranitidine [Zantac -] 150 mg PO DAILY #30 tablet 12/08/16 Fluticasone Prop 0.05% Nasal [Flonase -] 1 - 2 spray NS BID #1 bottle 01/07/17 Family Disease History - Family Disease History Family History: Denies Review of Systems - Review of Systems Constitutional: reports: Fever, Lethargy, Weakness Eyes: reports: No Symptoms HENT: reports: No Symptoms Neck: reports: No Symptoms Cardiovascular: reports: No Symptoms. denies: Chest Pain Respiratory: reports: Cough Gastrointestinal: reports: No Symptoms Genitourinary: reports: No Symptoms Physical Exam Vital Signs: Vital Signs Temperature 97.9 F 06/25/17 07:17 Pulse Rate 85 06/25/17 11:17 Respiratory Rate 14 06/25/17 07:17 Blood Pressure 125/59 06/25/17 11:17 O2 Sat by Pulse Oximetry (%) 97 06/25/17 11:17 Constitutional: Yes: Well Nourished, No Distress, Calm Eyes: Yes: Conjunctiva Clear HENT: Yes: Atraumatic, Normocephalic. No: Pharyngeal Erythema, Thrush Neck: Yes: Trachea Midline Cardiovascular: Yes: Regular Rate and Rhythm Respiratory: Yes: Regular, Diminished, Rhonchi Gastrointestinal: Yes: Normal Bowel Sounds, Soft Edema: No Psychiatric: Yes: Alert, Oriented Labs: CBC, BMP 06/25/17 05:36 06/25/17 05:36 Problem List - Problems (1) Pneumonia Code(s): J18.9 - PNEUMONIA, UNSPECIFIED ORGANISM Qualifiers: Pneumonia type: due to unspecified organism Laterality: unspecified laterality Lung location: unspecified part of lung Qualified Code(s): J18.9 - Pneumonia, unspecified organism Assessment/Plan possible pneumonia cannot r/o influenza continue rocephin influenza screen empiric tamiflu droplet isolation
--- NOTE | 2017-06-25 15:43 | PN ---
Progress Note (short form) - Note Progress Note: PULMONARY CONSULTATION DICTATED 06/25/17 IMP HYPOXEMIA COPD EXACERBATION URI DM HTN CHF H/O DVT PULMONARY NODULE PLAN IV STEROIDS INHALED BRONCHODILATORS O2 ABX PER ID CULTURES INFLUENZA SCREEN DVT PROPHYLAXIS F/U CHEST CT ONE MONTH Problem List - Problems (1) Hypoxemia Code(s): R09.02 - HYPOXEMIA (2) Hypoxemia Code(s): R09.02 - HYPOXEMIA (3) Acute exacerbation of chronic obstructive pulmonary disease (COPD) Code(s): J44.1 - CHRONIC OBSTRUCTIVE PULMONARY DISEASE W (ACUTE) EXACERBATION (4) CHF (congestive heart failure) Code(s): I50.9 - HEART FAILURE, UNSPECIFIED (5) DM (diabetes mellitus) Code(s): E11.9 - TYPE 2 DIABETES MELLITUS WITHOUT COMPLICATIONS Qualifiers: Diabetes mellitus type: type 2 Diabetes mellitus complication status: with ophthalmic complications (6) Dyspnea Code(s): R06.00 - DYSPNEA, UNSPECIFIED Qualifiers: Dyspnea type: dyspnea on exertion Qualified Code(s): R06.09 - Other forms of dyspnea (7) HTN (hypertension) Code(s): I10 - ESSENTIAL (PRIMARY) HYPERTENSION Qualifiers: Hypertension type: essential hypertension Qualified Code(s): I10 - Essential (primary) hypertension (8) Pulmonary nodules Code(s): R91.8 - OTHER NONSPECIFIC ABNORMAL FINDING OF LUNG FIELD (9) Shortness of breath Code(s): R06.02 - SHORTNESS OF BREATH (10) URI (upper respiratory infection) Code(s): J06.9 - ACUTE UPPER RESPIRATORY INFECTION, UNSPECIFIED (11) Pneumonia Code(s): J18.9 - PNEUMONIA, UNSPECIFIED ORGANISM Qualifiers: Pneumonia type: due to unspecified organism Laterality: unspecified laterality Lung location: unspecified part of lung Qualified Code(s): J18.9 - Pneumonia, unspecified organism
[2017-06-25] MEDS ORDERED: MONTELUKAST NA 10 MG TABLET ONE (21:11)
[2017-06-25] MEDS: ROSUVASTATIN CA 10 MG TABLET (FP) PO SCH (21:54)
[2017-06-25] MEDS: MONTELUKAST NA 10 MG TABLET PO SCH (22:06)
[2017-06-26] MEDS: methylPREDNISolone NA SUCC 40 MG/1 ML VIAL IVPUSH SCH ×4 (03:25→23:19)
[2017-06-26] MEDS: INSULIN SLIDING SCALE (NOVOLOG) 1 VIAL SQ SCH ×4 (06:28→23:20)
[2017-06-26] MEDS: HEPARIN NA (PORCINE) 5,000 UNITS/ML 1ML VIAL SQ SCH ×3 (06:28→23:19)
[2017-06-26] MEDS ORDERED: INSULIN (NOVOLOG) ASPART 100 UNITS/ML 10ML VIAL ONE ×2 (06:30→23:01)
--- NOTE | 2017-06-26 07:40 | CONS ---
DATE OF CONSULTATION: 06/25/2017 PULMONARY CONSULTATION REFERRING PHYSICIAN: Mallorie Elizabeth M.D. HISTORY OF PRESENT ILLNESS: The patient is a 71-year-old black male known to me from previous hospitalization, with past medical history of COPD, congestive heart failure, history of DVT, diabetes, hypertension, who was admitted to [facility] with complaint of a 2-day history of increasing shortness of breath, cough, chest congestion and bronchospasm. The patient states that he was out a few days ago in the rain and cold, after which he started developing increasing shortness of breath and the above symptoms. Despite taking his inhalers, his symptoms worsened, at which time he presented to the emergency room. In the emergency room, he was noted to be mildly hypoxemic with O2 saturation 90% on room air in triage. In the emergency room, he was treated with inhaled bronchodilators and IV steroids, with a good clinical response. He denied any fever, chills, nausea, vomiting or diaphoresis. He denied any chest pain or palpitations. The patient has a history of tobacco use, but quit greater than 30 years ago. 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 He denies any history of recent travel. Of note is a previous hospitalization in April. He had a CAT scan performed which revealed a small right lower lobe nodule. PAST MEDICAL HISTORY: Again, includes CHF, COPD, DVT, diabetes, hypertension. REVIEW OF SYSTEMS: Positive dyspnea. Positive cough. Positive chest congestion. No orthopnea. No fever. No chills. No hemoptysis. No abdominal pain. CURRENT MEDICATIONS: Include Symbicort 80/4.5, Solu-Medrol 40 q.6, Flomax, heparin, DuoNeb, ceftriaxone, Flonase, Zantac, Crestor, NovoLog, Singulair, Tamiflu, aspirin. PHYSICAL EXAMINATION: General: The patient is a well-developed, well-developed male, awake, alert, and currently in no acute distress. Vitals: He is currently afebrile. Blood pressure is 125/59, respiratory rate 16, O2 saturation 97% on 2 liters. HEENT: Normocephalic, atraumatic. Neck: Supple. Heart: Regular S1, S2. Chest: Scattered bilateral wheezes. Abdomen: Soft. Bowel sounds are positive. Extremities: No cyanosis or edema. LABORATORY DATA: WBC 8.6, hemoglobin 13.4, hematocrit 40.9; platelet count 223,000. INR 1.22. BUN 14, creatinine 1.0. Troponin 0.02. CK 379. BNP 149. DIAGNOSTIC STUDIES: Chest x-ray reveals increased interstitial markings bilaterally. IMPRESSION: 1. Chronic obstructive pulmonary disease with acute exacerbation. 2. Upper respiratory infection. 3. History of congestive heart failure. 4. Diabetes. 5. Hypertension. 6. History of deep venous thrombosis. 7. right lower lobe nodule. PLAN: Continue inhaled bronchodilators, supplemental oxygen, antibiotic therapy. Obtain cultures and a flu screen. DVT prophylaxis. Follow up chest CT in approximately 1 month to document stability of the pulmonary nodule. YEVGENIY MARROQUIN M.D. [id number]
[2017-06-26] MEDS: ALBUTEROL SO4 2.5/IPRATROPIUM 0.5 INH SOL 3 ML VIAL.NEB. NEB SCH ×4 (08:02→20:43)
[2017-06-26] MEDS: TAMSULOSIN HCL 0.4 MG CAP.ER.24H (FP) PO SCH (09:02)
[2017-06-26] MEDS: BUDESONIDE/FORMETEROL FUMARATE 80/4.5 mcg INHALER IH SCH ×2 (09:03→23:20)
[2017-06-26] MEDS: RANITIDINE HCL 150 MG TABLET (FP) PO SCH (09:03)
[2017-06-26] MEDS: ASPIRIN 81 MG CHEWABLE TABLETS PO SCH (09:03)
[2017-06-26] MEDS: OSELTAMIVIR PHOSPHATE 75 MG CAPSULE PO SCH ×2 (09:03→23:20)
[2017-06-26] MEDS: CEFTRIAXONE 1 G/50 ML PREMIX 50 ML IVPB SCH (09:03)
[2017-06-26] MEDS: FLUTICASONE PROP 0.05% 16 GM NASAL SPRAY NS SCH ×2 (09:03→23:19)
--- NOTE | 2017-06-26 10:06 | PN ---
Progress Note, Physician History of Present Illness: pulmonary alert,less dyspneic,+ cough,-cp,afebrile - Current Medication List Current Medications: Active Medications Albuterol/Ipratropium (Duoneb -) 1 amp NEB RQID [facility] Last Admin: 06/26/17 08:02 Dose: 1 amp Aspirin (Asa -) 81 mg PO DAILY [facility] Last Admin: 06/26/17 09:03 Dose: 81 mg Budesonide/Formoterol Fumarate (Symbicort 80/4.5mcg -) 2 puff IH BID [facility] Last Admin: 06/26/17 09:03 Dose: 2 puff Fluticasone Propionate (Flonase -) 1 spray NS BID [facility] Last Admin: 06/26/17 09:03 Dose: 1 spray Heparin Sodium (Porcine) (Heparin -) 5,000 unit SQ TID [facility] Last Admin: 06/26/17 06:28 Dose: 5,000 unit CEFTRIAXONE 1 G/50 ML PREMIX (Ceftriaxone 1 Gm-D5w Bag) 50 mls @ 100 mls/hr IVPB DAILY [facility] Last Admin: 06/26/17 09:03 Dose: 100 mls/hr Insulin Aspart (Novolog Vial Sliding Scale -) 1 vial SQ HS [facility] PRN Reason: Protocol Last Admin: 06/25/17 22:45 Dose: 2 units Insulin Aspart (Novolog Vial Sliding Scale -) 1 vial SQ TIDAC [facility] PRN Reason: Protocol Last Admin: 06/26/17 06:28 Dose: 3 units Methylprednisolone Sodium Succinate (Solu-Medrol -) 40 mg IVPUSH Q6H-IV [facility] Last Admin: 06/26/17 09:02 Dose: 40 mg Montelukast Sodium (Singulair -) 10 mg PO [facility] Last Admin: 06/25/17 22:06 Dose: 10 mg Oseltamivir Phosphate (Tamiflu -) 75 mg PO BID [facility] Stop: 06/30/17 09:59 Last Admin: 06/26/17 09:03 Dose: 75 mg Ranitidine HCl (Zantac -) 150 mg PO DAILY [facility] Last Admin: 06/26/17 09:03 Dose: 150 mg Rosuvastatin Calcium (Crestor -) 10 mg PO [facility] Last Admin: 06/25/17 21:54 Dose: 10 mg Tamsulosin HCl (Flomax -) 0.4 mg PO DAILY@0830 [facility] Last Admin: 06/26/17 09:02 Dose: 0.4 mg - Objective Vital Signs: Vital Signs Temperature 98.5 F 06/26/17 09:28 Pulse Rate 71 06/26/17 09:28 Respiratory Rate 18 06/26/17 09:28 Blood Pressure 117/59 06/26/17 09:28 O2 Sat by Pulse Oximetry (%) 99 06/26/17 06:38 Constitutional: Yes: Well Nourished, Calm Eyes: Yes: WNL HENT: Yes: WNL Neck: Yes: WNL Cardiovascular: Yes: Regular Rate and Rhythm, S1, S2 Respiratory: Yes: Wheezes (scattered wheezes) Gastrointestinal: Yes: Normal Bowel Sounds, Soft Edema: Yes Peripheral Pulses WNL: No Labs: CBC, BMP Problem List - Problems (1) Hypoxemia Code(s): R09.02 - HYPOXEMIA (2) Hypoxemia Code(s): R09.02 - HYPOXEMIA (3) Acute exacerbation of chronic obstructive pulmonary disease (COPD) Code(s): J44.1 - CHRONIC OBSTRUCTIVE PULMONARY DISEASE W (ACUTE) EXACERBATION (4) CHF (congestive heart failure) Code(s): I50.9 - HEART FAILURE, UNSPECIFIED (5) DM (diabetes mellitus) Code(s): E11.9 - TYPE 2 DIABETES MELLITUS WITHOUT COMPLICATIONS Qualifiers: Diabetes mellitus type: type 2 Diabetes mellitus complication status: with ophthalmic complications (6) Dyspnea Code(s): R06.00 - DYSPNEA, UNSPECIFIED Qualifiers: Dyspnea type: dyspnea on exertion Qualified Code(s): R06.09 - Other forms of dyspnea (7) HTN (hypertension) Code(s): I10 - ESSENTIAL (PRIMARY) HYPERTENSION Qualifiers: Hypertension type: essential hypertension Qualified Code(s): I10 - Essential (primary) hypertension (8) Pulmonary nodules Code(s): R91.8 - OTHER NONSPECIFIC ABNORMAL FINDING OF LUNG FIELD (9) Shortness of breath Code(s): R06.02 - SHORTNESS OF BREATH (10) URI (upper respiratory infection) Code(s): J06.9 - ACUTE UPPER RESPIRATORY INFECTION, UNSPECIFIED (11) Pneumonia Code(s): J18.9 - PNEUMONIA, UNSPECIFIED ORGANISM Qualifiers: Pneumonia type: due to unspecified organism Laterality: unspecified laterality Lung location: unspecified part of lung Qualified Code(s): J18.9 - Pneumonia, unspecified organism Assessment/Plan IMP HYPOXEMIA COPD EXACERBATION URI DM HTN CHF H/O DVT PULMONARY NODULE PLAN CONTINUE IV STEROIDS SAME DOSE INHALED BRONCHODILATORS O2 ABX PER ID CULTURES INFLUENZA SCREEN DVT PROPHYLAXIS F/U CHEST CT ONE MONTH Problem List - Problems (1) Hypoxemia Code(s): R09.02 - HYPOXEMIA (2) Hypoxemia Code(s): R09.02 - HYPOXEMIA (3) Acute exacerbation of chronic obstructive pulmonary disease (COPD) Code(s): J44.1 - CHRONIC OBSTRUCTIVE PULMONARY DISEASE W (ACUTE) EXACERBATION (4) CHF (congestive heart failure) Code(s): I50.9 - HEART FAILURE, UNSPECIFIED (5) DM (diabetes mellitus) Code(s): E11.9 - TYPE 2 DIABETES MELLITUS WITHOUT COMPLICATIONS Qualifiers: Diabetes mellitus type: type 2 Diabetes mellitus complication status: with ophthalmic complications (6) Dyspnea Code(s): R06.00 - DYSPNEA, UNSPECIFIED Qualifiers: Dyspnea type: dyspnea on exertion Qualified Code(s): R06.09 - Other forms of dyspnea (7) HTN (hypertension) Code(s): I10 - ESSENTIAL (PRIMARY) HYPERTENSION Qualifiers: Hypertension type: essential hypertension Qualified Code(s): I10 - Essential (primary) hypertension (8) Pulmonary nodules Code(s): R91.8 - OTHER NONSPECIFIC ABNORMAL FINDING OF LUNG FIELD (9) Shortness of breath Code(s): R06.02 - SHORTNESS OF BREATH (10) URI (upper respiratory infection) Code(s): J06.9 - ACUTE UPPER RESPIRATORY INFECTION, UNSPECIFIED (11) Pneumonia Code(s): J18.9 - PNEUMONIA, UNSPECIFIED ORGANISM Qualifiers: Pneumonia type: due to unspecified organism Laterality: unspecified laterality Lung location: unspecified part of lung Qualified Code(s): J18.9 - Pneumonia, unspecified organism
[2017-06-26] MEDS ORDERED: ALBUTEROL SO4 2.5/IPRATROPIUM 0.5 INH SOL 3 ML VIAL.NEB. NEB ONE ×2 (10:27→20:45)
--- NOTE | 2017-06-26 15:15 | PN ---
Progress Note, Physician Chief Complaint: Pneumonia - Current Medication List Current Medications: Active Medications Albuterol/Ipratropium (Duoneb -) 1 amp NEB RQID [facility] Last Admin: 06/26/17 13:35 Dose: 1 amp Aspirin (Asa -) 81 mg PO DAILY [facility] Last Admin: 06/26/17 09:03 Dose: 81 mg Budesonide/Formoterol Fumarate (Symbicort 80/4.5mcg -) 2 puff IH BID [facility] Last Admin: 06/26/17 09:03 Dose: 2 puff Fluticasone Propionate (Flonase -) 1 spray NS BID [facility] Last Admin: 06/26/17 09:03 Dose: 1 spray Heparin Sodium (Porcine) (Heparin -) 5,000 unit SQ TID [facility] Last Admin: 06/26/17 14:01 Dose: 5,000 unit CEFTRIAXONE 1 G/50 ML PREMIX (Ceftriaxone 1 Gm-D5w Bag) 50 mls @ 100 mls/hr IVPB DAILY [facility] Last Admin: 06/26/17 09:03 Dose: 100 mls/hr Insulin Aspart (Novolog Vial Sliding Scale -) 1 vial SQ [facility] PRN Reason: Protocol Last Admin: 06/25/17 22:45 Dose: 2 units Insulin Aspart (Novolog Vial Sliding Scale -) 1 vial SQ TIDAC [facility] PRN Reason: Protocol Last Admin: 06/26/17 11:39 Dose: Not Given Methylprednisolone Sodium Succinate (Solu-Medrol -) 40 mg IVPUSH Q6H-IV [facility] Last Admin: 06/26/17 14:01 Dose: 40 mg Montelukast Sodium (Singulair -) 10 mg PO [facility] Last Admin: 06/25/17 22:06 Dose: 10 mg Oseltamivir Phosphate (Tamiflu -) 75 mg PO BID [facility] Stop: 06/30/17 09:59 Last Admin: 06/26/17 09:03 Dose: 75 mg Ranitidine HCl (Zantac -) 150 mg PO DAILY [facility] Last Admin: 06/26/17 09:03 Dose: 150 mg Rosuvastatin Calcium (Crestor -) 10 mg PO [facility] Last Admin: 06/25/17 21:54 Dose: 10 mg Tamsulosin HCl (Flomax -) 0.4 mg PO DAILY@0830 [facility] Last Admin: 06/26/17 09:02 Dose: 0.4 mg - Objective Vital Signs: Vital Signs Temperature 98.5 F 06/26/17 09:28 Pulse Rate 75 06/26/17 11:41 Respiratory Rate 18 06/26/17 11:41 Blood Pressure 138/69 06/26/17 11:41 O2 Sat by Pulse Oximetry (%) 94 L 06/26/17 12:31 Constitutional: Yes: Well Nourished, No Distress, Calm Labs: CBC, BMP 06/25/17 05:36 06/25/17 05:36 INR, PTT INR 1.22 (0.82-1.09) H 06/24/17 15:30
[2017-06-26] MEDS ORDERED: methylPREDNISolone NA SUCC 40 MG/1 ML VIAL ONE (22:58)
[2017-06-26] MEDS ORDERED: MONTELUKAST NA 10 MG TABLET ONE (22:58)
[2017-06-26] MEDS ORDERED: OSELTAMIVIR PHOSPHATE 75 MG CAPSULE ONE (22:58)
[2017-06-26] MEDS ORDERED: HEPARIN NA (PORCINE) 5,000 UNITS/ML 1ML VIAL ONE (22:58)
[2017-06-26] MEDS: ROSUVASTATIN CA 10 MG TABLET (FP) PO SCH (23:00)
[2017-06-26] MEDS: MONTELUKAST NA 10 MG TABLET PO SCH (23:20)
[2017-06-27] MEDS: methylPREDNISolone NA SUCC 40 MG/1 ML VIAL IVPUSH SCH ×2 (02:37→10:06)
[2017-06-27] MEDS ORDERED: methylPREDNISolone NA SUCC 40 MG/1 ML VIAL ONE (02:45)
[2017-06-27] MEDS: INSULIN SLIDING SCALE (NOVOLOG) 1 VIAL SQ SCH ×2 (07:41→11:51)
[2017-06-27] MEDS: HEPARIN NA (PORCINE) 5,000 UNITS/ML 1ML VIAL SQ SCH (07:41)
--- NOTE | 2017-06-27 08:33 | PN ---
Progress Note (short form) - Note Progress Note: feels well no longetr weak less cough Vital Signs Period Temp Pulse Resp BP Sys/Hall Pulse Ox Last 24 Hr 97.9 F-98.5 F 71-87 18-18 117-150/59-81 94-96 cor-rrr lungs decreased bs at bases abd soft,nt ext no edema CBC, BMP 06/25/17 05:36 06/25/17 05:36 Microbiology 06/24/17 15:04 Blood - Peripheral Venous Blood Culture - Preliminary NO GROWTH OBTAINED AFTER 48 HOURS, INCUBATION TO CONTINUE FOR 3 DAYS. 06/24/17 14:52 Blood - Peripheral Venous Blood Culture - Preliminary NO GROWTH OBTAINED AFTER 48 HOURS, INCUBATION TO CONTINUE FOR 3 DAYS. 06/25/17 16:42 Urine For Antigen Detection Legionella Antigen - Final 06/25/17 16:42 Urine For Antigen Detection Streptococcus pneumoniae Antigen (M - Final 06/24/17 16:40 Urine - Urine Clean Catch Urine Culture - Final NO GROWTH OBTAINED Current Medications Albuterol/Ipratropium (Duoneb -) 1 amp NEB RQID [facility] Last Admin: 06/26/17 20:43 Dose: 1 amp Aspirin (Asa -) 81 mg PO DAILY [facility] Last Admin: 06/26/17 09:03 Dose: 81 mg Budesonide/Formoterol Fumarate (Symbicort 80/4.5mcg -) 2 puff IH BID [facility] Last Admin: 06/26/17 23:20 Dose: 2 puff Fluticasone Propionate (Flonase -) 1 spray NS BID [facility] Last Admin: 06/26/17 23:19 Dose: 1 spray Heparin Sodium (Porcine) (Heparin -) 5,000 unit SQ TID [facility] Last Admin: 06/27/17 07:41 Dose: 5,000 unit CEFTRIAXONE 1 G/50 ML PREMIX (Ceftriaxone 1 Gm-D5w Bag) 50 mls @ 100 mls/hr IVPB DAILY [facility] Last Admin: 06/26/17 09:03 Dose: 100 mls/hr Insulin Aspart (Novolog Vial Sliding Scale -) 1 vial SQ HS [facility] PRN Reason: Protocol Last Admin: 06/26/17 23:20 Dose: Not Given Insulin Aspart (Novolog Vial Sliding Scale -) 1 vial SQ TIDAC [facility] PRN Reason: Protocol Last Admin: 06/27/17 07:41 Dose: 2 units Methylprednisolone Sodium Succinate (Solu-Medrol -) 40 mg IVPUSH Q6H-IV [facility] Last Admin: 06/27/17 02:37 Dose: 40 mg Montelukast Sodium (Singulair -) 10 mg PO [facility] Last Admin: 06/26/17 23:20 Dose: 10 mg Oseltamivir Phosphate (Tamiflu -) 75 mg PO BID [facility] Stop: 06/30/17 09:59 Last Admin: 06/26/17 23:20 Dose: 75 mg Ranitidine HCl (Zantac -) 150 mg PO DAILY [facility] Last Admin: 06/26/17 09:03 Dose: 150 mg Rosuvastatin Calcium (Crestor -) 10 mg PO [facility] Last Admin: 06/26/17 23:00 Dose: 10 mg Tamsulosin HCl (Flomax -) 0.4 mg PO DAILY@0830 [facility] Last Admin: 06/26/17 09:02 Dose: 0.4 mg a/p doing well pneumonia/bronchitis cannot r/o influenza copd exacerbation finish 5 days tamiflu can switch to po ceftin for total 7 days now day #3 no objection to d/c home if okay with pulmonary please call back if needed Problem List - Problems (1) Pneumonia Code(s): J18.9 - PNEUMONIA, UNSPECIFIED ORGANISM Qualifiers: Pneumonia type: due to unspecified organism Laterality: unspecified laterality Lung location: unspecified part of lung Qualified Code(s): J18.9 - Pneumonia, unspecified organism
[2017-06-27] MEDS: ALBUTEROL SO4 2.5/IPRATROPIUM 0.5 INH SOL 3 ML VIAL.NEB. NEB SCH (08:40)
[2017-06-27] MEDS: RANITIDINE HCL 150 MG TABLET (FP) PO SCH (09:55)
[2017-06-27] MEDS: ASPIRIN 81 MG CHEWABLE TABLETS PO SCH (09:56)
[2017-06-27] MEDS: OSELTAMIVIR PHOSPHATE 75 MG CAPSULE PO SCH (09:56)
[2017-06-27] MEDS: TAMSULOSIN HCL 0.4 MG CAP.ER.24H (FP) PO SCH (09:56)
[2017-06-27] MEDS: FLUTICASONE PROP 0.05% 16 GM NASAL SPRAY NS SCH (09:59)
[2017-06-27] MEDS: BUDESONIDE/FORMETEROL FUMARATE 80/4.5 mcg INHALER IH SCH (10:00)
[2017-06-27 10:35] VITALS: BP 144/85; PULSE 90; TEMP 98.2
--- NOTE | 2017-06-27 10:46 | PN ---
Progress Note, Physician History of Present Illness: PULMONARY ALERT,NAD,-CP,-SOB,-COUGH. - Current Medication List Current Medications: Active Medications Albuterol/Ipratropium (Duoneb -) 1 amp NEB RQID [facility] Last Admin: 06/27/17 08:40 Dose: 1 amp Aspirin (Asa -) 81 mg PO DAILY [facility] Last Admin: 06/27/17 09:56 Dose: 81 mg Budesonide/Formoterol Fumarate (Symbicort 80/4.5mcg -) 2 puff IH BID [facility] Last Admin: 06/27/17 10:00 Dose: 2 puff Fluticasone Propionate (Flonase -) 1 spray NS BID [facility] Last Admin: 06/27/17 09:59 Dose: 1 spray Heparin Sodium (Porcine) (Heparin -) 5,000 unit SQ TID [facility] Last Admin: 06/27/17 07:41 Dose: 5,000 unit CEFTRIAXONE 1 G/50 ML PREMIX (Ceftriaxone 1 Gm-D5w Bag) 50 mls @ 100 mls/hr IVPB DAILY [facility] Last Admin: 06/26/17 09:03 Dose: 100 mls/hr Insulin Aspart (Novolog Vial Sliding Scale -) 1 vial SQ [facility] PRN Reason: Protocol Last Admin: 06/26/17 23:20 Dose: Not Given Insulin Aspart (Novolog Vial Sliding Scale -) 1 vial SQ TIDAC [facility] PRN Reason: Protocol Last Admin: 06/27/17 07:41 Dose: 2 units Methylprednisolone Sodium Succinate (Solu-Medrol -) 40 mg IVPUSH Q6H-IV [facility] Last Admin: 06/27/17 10:06 Dose: 40 mg Montelukast Sodium (Singulair -) 10 mg PO [facility] Last Admin: 06/26/17 23:20 Dose: 10 mg Oseltamivir Phosphate (Tamiflu -) 75 mg PO BID [facility] Stop: 15 09:59 Last Admin: 06/27/17 09:56 Dose: 75 mg Ranitidine HCl (Zantac -) 150 mg PO DAILY [facility] Last Admin: 06/27/17 09:55 Dose: 150 mg Rosuvastatin Calcium (Crestor -) 10 mg PO [facility] Last Admin: 06/26/17 23:00 Dose: 10 mg Tamsulosin HCl (Flomax -) 0.4 mg PO DAILY@0830 [facility] Last Admin: 06/27/17 09:56 Dose: 0.4 mg - Objective Vital Signs: Vital Signs Temperature 98.2 F 06/27/17 10:00 Pulse Rate 90 06/27/17 10:00 Respiratory Rate 18 06/27/17 10:00 Blood Pressure 144/85 06/27/17 10:00 O2 Sat by Pulse Oximetry (%) 95 06/26/17 21:00 Constitutional: Yes: Well Nourished, Calm Eyes: Yes: WNL HENT: Yes: WNL Neck: Yes: WNL Cardiovascular: Yes: Regular Rate and Rhythm, S1, S2 Respiratory: Yes: Diminished Gastrointestinal: Yes: Normal Bowel Sounds, Soft Extremities: Yes: WNL Edema: Yes Problem List - Problems (1) Hypoxemia Code(s): R09.02 - HYPOXEMIA (2) Hypoxemia Code(s): R09.02 - HYPOXEMIA (3) Acute exacerbation of chronic obstructive pulmonary disease (COPD) Code(s): J44.1 - CHRONIC OBSTRUCTIVE PULMONARY DISEASE W (ACUTE) EXACERBATION (4) CHF (congestive heart failure) Code(s): I50.9 - HEART FAILURE, UNSPECIFIED (5) DM (diabetes mellitus) Code(s): E11.9 - TYPE 2 DIABETES MELLITUS WITHOUT COMPLICATIONS Qualifiers: Diabetes mellitus type: type 2 Diabetes mellitus complication status: with ophthalmic complications (6) Dyspnea Code(s): R06.00 - DYSPNEA, UNSPECIFIED Qualifiers: Dyspnea type: dyspnea on exertion Qualified Code(s): R06.09 - Other forms of dyspnea (7) HTN (hypertension) Code(s): I10 - ESSENTIAL (PRIMARY) HYPERTENSION Qualifiers: Hypertension type: essential hypertension Qualified Code(s): I10 - Essential (primary) hypertension (8) Pulmonary nodules Code(s): R91.8 - OTHER NONSPECIFIC ABNORMAL FINDING OF LUNG FIELD (9) Shortness of breath Code(s): R06.02 - SHORTNESS OF BREATH (10) URI (upper respiratory infection) Code(s): J06.9 - ACUTE UPPER RESPIRATORY INFECTION, UNSPECIFIED (11) Pneumonia Code(s): J18.9 - PNEUMONIA, UNSPECIFIED ORGANISM Qualifiers: Pneumonia type: due to unspecified organism Laterality: unspecified laterality Lung location: unspecified part of lung Qualified Code(s): J18.9 - Pneumonia, unspecified organism Assessment/Plan IMP HYPOXEMIA IMPROVED COPD EXACERBATION IMPROVED URI DM HTN CHF H/O DVT PULMONARY NODULE PLAN PREDNISONE 40mg daily INHALED BRONCHODILATORS O2 INFLUENZA SCREEN DVT PROPHYLAXIS F/U CHEST CT ONE MONTH Problem List - Problems (1) Hypoxemia Code(s): R09.02 - HYPOXEMIA (2) Hypoxemia Code(s): R09.02 - HYPOXEMIA (3) Acute exacerbation of chronic obstructive pulmonary disease (COPD) Code(s): J44.1 - CHRONIC OBSTRUCTIVE PULMONARY DISEASE W (ACUTE) EXACERBATION (4) CHF (congestive heart failure) Code(s): I50.9 - HEART FAILURE, UNSPECIFIED (5) DM (diabetes mellitus) Code(s): E11.9 - TYPE 2 DIABETES MELLITUS WITHOUT COMPLICATIONS Qualifiers: Diabetes mellitus type: type 2 Diabetes mellitus complication status: with ophthalmic complications (6) Dyspnea Code(s): R06.00 - DYSPNEA, UNSPECIFIED Qualifiers: Dyspnea type: dyspnea on exertion Qualified Code(s): R06.09 - Other forms of dyspnea (7) HTN (hypertension) Code(s): I10 - ESSENTIAL (PRIMARY) HYPERTENSION Qualifiers: Hypertension type: essential hypertension Qualified Code(s): I10 - Essential (primary) hypertension (8) Pulmonary nodules Code(s): R91.8 - OTHER NONSPECIFIC ABNORMAL FINDING OF LUNG FIELD (9) Shortness of breath Code(s): R06.02 - SHORTNESS OF BREATH (10) URI (upper respiratory infection) Code(s): J06.9 - ACUTE UPPER RESPIRATORY INFECTION, UNSPECIFIED (11) Pneumonia Code(s): J18.9 - PNEUMONIA, UNSPECIFIED ORGANISM Qualifiers: Pneumonia type: due to unspecified organism Laterality: unspecified laterality Lung location: unspecified part of lung Qualified Code(s): J18.9 - Pneumonia, unspecified organism
[2017-06-27] MEDS ORDERED: CEFTRIAXONE 1 GM/50 ML BAG ONE (11:44)
[2017-06-27] MEDS: CEFTRIAXONE 1 G/50 ML PREMIX 50 ML IVPB SCH (11:50)
--- NOTE | 2017-06-27 11:53 | DS ---
Physical Examination Vital Signs: Vital Signs Temperature 98.2 F 06/27/17 10:00 Pulse Rate 90 06/27/17 10:00 Respiratory Rate 18 06/27/17 10:00 Blood Pressure 144/85 06/27/17 10:00 O2 Sat by Pulse Oximetry (%) 95 06/26/17 21:00 Constitutional: Yes: Calm Cardiovascular: Yes: Regular Rate and Rhythm, S1, S2 Respiratory: Yes: CTA Bilaterally Gastrointestinal: Yes: Normal Bowel Sounds, Soft Edema: No Neurological: Yes: Alert, Oriented Labs: CBC, BMP 06/25/17 05:36 06/25/17 05:36 Discharge Summary Reason For Visit: ASTHMA,PNEUMONIA Current Active Problems Asthma (Acute) Hypoxemia (Acute) Hypoxemia (Acute) Pneumonia (Acute) URI (upper respiratory infection) (Acute) Hospital Course: CHIEF COMPLAINT: SOB, cough PCP: Lucila HISTORY OF PRESENT ILLNESS: This is a 71 year old male with a significant past medical history of COPD, asthma, CHF who presented to the ED with cough productive yellow sputum and increased SOB that worsens with exertion for the past couple of days. Pt denies fever or chills. Denies Chest pain. ER course was notable for: (1) WBC 10.8 (2) given doxy, ceftriaxone, solumedrol in the hospital patient treatment with tamiflu and rocephin, for bornchitis / r/ o influenza and steroids with po taper to FU with PMD and get ct scan in one month Condition: Stable - Instructions Diet, Activity, Other Instructions: CT scan of chest in one month FU with Dr parikh for Steriod taper in one week prednisone 30mg po daily for 3 days and prednisone 20mg po daily for 3 days the n10mg po daily for 3 days then stop Referrals: David Parikh MD [Primary Care Provider] - Disposition: HOME - Home Medications Comprehensive Discharge Medication List: Ambulatory Orders Aspirin [ASA -] 81 mg PO DAILY #0 tab.chew 07/31/14 Albuterol Sulfate Inhaler - [Ventolin HFA Inhaler -] 1 - 2 inh PO Q4H PRN #1 inhaler 01/11/16 Furosemide [Lasix -] 40 mg PO DAILY tablet 10/04/16 Montelukast Na [Singulair -] 10 mg PO HS tablet 10/04/16 Rosuvastatin [Crestor -] 10 mg PO DAILY 12/05/16 Tamsulosin HCl [Flomax -] 0.4 mg PO DAILY 12/05/16 Budesonide/Formeterol Fumarate [SYMBICORT 80/4.5mcg -] 2 puff IH BID #1 inhaler 12/08/16 Ranitidine [Zantac -] 150 mg PO DAILY #30 tablet 12/08/16 Fluticasone Prop 0.05% Nasal [Flonase -] 1 - 2 spray NS BID #1 bottle 01/07/17 Cefuroxime Axetil [Ceftin -] 500 mg PO Q12H #10 tablet 06/27/17 Oseltamivir Phosphate [Tamiflu -] 75 mg PO BID #7 capsule 06/27/17 Prednisone 10 mg PO DAILY #20 tablet 06/27/17 predniSONE [Deltasone -] 40 mg PO DAILY #10 tablet 06/27/17
[2017-06-27] MEDS ORDERED: predniSONE 20 MG TABLET (UD) PO SCH (13:00)
== END 2017-06-27 12:45 | disposition home or self-care (01) | DRG 190 ==
LOC: JER 13:14 → JERBED 19:57
PROVIDERS: ADMIT Internal Medicine; ATTEND Family Medicine
DX: J44.0 Chronic obstructive pulmonary disease with (acute) lower respiratory infection (principal); J18.9 Pneumonia, unspecified organism; J11.00 Influenza due to unidentified influenza virus with unspecified type of pneumonia; J44.1 Chronic obstructive pulmonary disease with (acute) exacerbation; E11.39 Type 2 diabetes mellitus with other diabetic ophthalmic complication; I11.0 Hypertensive heart disease with heart failure; N40.0 Benign prostatic hyperplasia without lower urinary tract symptoms; J06.9 Acute upper respiratory infection, unspecified; R91.1 Solitary pulmonary nodule; R09.02 Hypoxemia; Z86.718 Personal history of other venous thrombosis and embolism; Z87.891 Personal history of nicotine dependence
CPT/HCPCS: 36415; 71045-TC; 80048; 80053; 81003; 82550; 82553; 82962; 83605; 83735; 83880; 84100; 84484; 85025; 85610; 85730; 87040; 87070; 87086; 87205; 87804; 87899; 93005; 93010; 94640; 99285-25; J1644

== ENCOUNTER 2017-10-09 09:04 | Emergency (ER) | payer OTHER ==
[2017-10-09 09:18] VITALS: TEMP 98.2; BMI 31.0
--- NOTE | 2017-10-09 09:44 | PDOC ---
History of Present Illness - General Chief Complaint: Shortness of Breath Stated Complaint: SOB Time Seen by Provider: 10/09/17 09:43 - History of Present Illness Initial Comments: 10/09/17 09:43 Mr. Bravo is a 72 yo male w/ pmh of COPD, CHF (on Lasix), past DVT, diabetes, HTN, and asthma who presents for evaluation of 2-3 day history of shortness of breath at rest. He reports he was here for XR of left knee ordered by PCP after a recent 2 week history of left knee pain and thought he would get evaluated while he was in the building. He reports he has also been experiencing some mild congestion and cough over this same time period. The patient denies chest pain, shortness of breath, headache and dizziness. Denies fever, chills, nausea, vomit, diarrhea and constipation. Denies dysuria, frequency, urgency and hematuria. Allergies: ibuprofen; azithromycin Past History - Past Medical History Allergies/Adverse Reactions: Allergies Allergy/AdvReac Type Severity Reaction Status Date / Time ibuprofen [From Advil] Allergy Unknown Vomiting Verified 10/09/17 09:14 azithromycin [From Zithromax] AdvReac Mild Vomiting Verified 10/09/17 09:14 Home Medications: Ambulatory Orders Aspirin [ASA -] 81 mg PO DAILY #0 tab.chew 07/31/14 Albuterol Sulfate Inhaler - [Ventolin HFA Inhaler -] 1 - 2 inh PO Q4H PRN #1 inhaler 01/11/16 Montelukast Na [Singulair -] 10 mg PO HS tablet 10/04/16 Rosuvastatin [Crestor -] 10 mg PO DAILY 12/05/16 Tamsulosin HCl [Flomax -] 0.4 mg PO BID 12/05/16 Ranitidine [Zantac -] 150 mg PO DAILY #30 tablet 12/08/16 Albuterol 0.083% Nebulizer Jacki [Ventolin 0.083% Nebulizer Soln -] 1 neb NEB Q4H PRN #100 vial MDD 6 06/27/17 Furosemide [Lasix -] 20 mg PO DAILY 10/09/17 Prednisone [Deltasone] 40 mg PO DAILY #6 tablet 10/09/17 Anemia: No Asthma: Yes Cardiac Disorders: Yes (CHF) CVA: No COPD: Yes CHF: Yes DVT: Yes Dementia: No Diabetes: Yes GI Disorders: No Disorders: Yes (ENLARGED PROSTATE) HTN: Yes Hypercholesterolemia: No Liver Disease: No Seizures: No Thyroid Disease: No - Surgical History Abdominal Surgery: No Appendectomy: No Cardiac Surgery: No Cholecystectomy: No - Immunization History Immunization Up to Date: Yes - Suicide/Smoking/Psychosocial Hx Smoking Status: No Smoking History: Former smoker Have you smoked in the past 12 months: No Number of Cigarettes Smoked Daily: 0 If you are a former smoker, when did you quit?: 2001 Information on smoking cessation initiated: No 'Breaking Loose' booklet given: 01/08/12 Hx Alcohol Use: No Drug/Substance Use Hx: No Substance Use Type: None Hx Substance Use Treatment: No Review of Systems - Review of Systems Comments:: 10/09/17 09:44 GENERAL/CONSTITUTIONAL: No fever or chills. No weakness. HEAD, EYES, EARS, NOSE AND THROAT: No change in vision. No ear pain or discharge. No sore throat. CARDIOVASCULAR: +Shortness of breath as described. No chest pain. RESPIRATORY: +Recent intermittent cough (2-3 days) and runny nose. No wheezing or hemoptysis. GASTROINTESTINAL: No nausea, vomiting, diarrhea or constipation. GENITOURINARY: No dysuria, frequency, or change in urination. MUSCULOSKELETAL: No joint or muscle swelling or pain. No neck or back pain. SKIN: No rash NEUROLOGIC: No headache, vertigo, loss of consciousness, or change in strength/ sensation. ENDOCRINE: No increased thirst. No abnormal weight change HEMATOLOGIC/LYMPHATIC: No anemia, easy bleeding, or history of blood clots. ALLERGIC/IMMUNOLOGIC: No hives or skin allergy. *Physical Exam - Vital Signs Last Vital Signs Temp Pulse Resp BP Pulse Ox 98.2 F 72 22 141/73 96 10/09/17 09:14 10/09/17 09:14 10/09/17 09:14 10/09/17 09:14 10/09/17 09:14 - Physical Exam Comments: 10/09/17 09:44 GENERAL: Awake, alert, and fully oriented, in no acute distress HEAD: No signs of trauma, normocephalic, atraumatic EYES: PERRLA, EOMI, sclera anicteric, conjunctiva clear ENT: Auricles normal inspection, hearing grossly normal, nares patent, oropharynx clear without exudates. Moist mucosa NECK: Normal ROM, supple, no lymphadenopathy, JVD, or masses LUNGS: No distress, speaks full sentences, clear to auscultation bilaterally HEART: Regular rate and rhythm, normal S1 and S2, no murmurs, rubs or gallops, peripheral pulses normal and equal bilaterally. ABDOMEN: Soft, nontender, normoactive bowel sounds. No guarding, no rebound. No masses EXTREMITIES: Normal inspection, Normal range of motion, no edema. No clubbing or cyanosis. NEUROLOGICAL: Cranial nerves II through XII grossly intact. Normal speech, normal gait, no focal sensorimotor deficits SKIN: Warm, Dry, normal turgor, no rashes or lesions noted. ED Treatment Course - LABORATORY CBC & Chemistry Diagram: 10/09/17 10:05 10/09/17 10:05 Medical Decision Making - Medical Decision Making 10/09/17 13:31 Mr. Bravo is a 72 yo male w/ pmh as described who presents for evaluation of SOB as described. D-dimer sent for evaluation revealed mildly elevated levels as below. Decision made to obtain CTA to r/o PE. CT scan was negative for acute process revealing only changes c/w COPD. Patient feeling symptomatically improved after 1 round of duoneb. Visine drops also given for symptomatic relief of eye irritation patient reports is consistent w/ his seasonal allergies. Prednisone given in ER and 3 day Rx sent to patient's pharmacy for continued relief from symptoms. Discharging to home. Patient will follow-up with PCP for further evaluation next wee. Laboratory Results - last 24 hr 10/09/17 10/09/17 10/09/17 10:05 10:05 10:05 WBC 9.4 RBC 5.02 Hgb 14.3 Hct 43.6 MCV 86.9 MCH 28.4 MCHC 32.7 RDW 13.2 Plt Count 279 D MPV 8.6 Neutrophils % 47.9 D Lymphocytes % 24.4 D Monocytes % 11.6 H Eosinophils % 15.0 H D Basophils % 1.1 Nucleated RBC % 0 D-Dimer 744 H Sodium 143 Potassium 3.8 Chloride 109 H Carbon Dioxide 27 Anion Gap 7 L BUN 14 Creatinine 0.9 Creat Clearance w eGFR > 60 Random Glucose 110 H D Calcium 8.7 Total Bilirubin 0.6 AST 21 ALT 28 D Alkaline Phosphatase 69 Creatine Kinase 406 H Creatine Kinase Index 2.5 CK-MB (CK-2) 10.168 H Troponin I < 0.02 Total Protein 7.3 Albumin 3.5 *DC/Admit/Observation/Transfer Diagnosis at time of Disposition: COPD exacerbation - Discharge Dispostion Disposition: HOME - Prescriptions Prescriptions: Prednisone [Deltasone] 40 mg PO DAILY #6 tablet - Referrals Referrals: David Gaytan MD [Primary Care Provider] - - Patient Instructions Printed Discharge Instructions: DI for Chronic Obstructive Pulmonary Disease Additional Instructions: You were evaluated today in the emergency room for COPD exacerbation. A prescription for prednisone has been sent to your pharmacy - begin medication tomorrow and take all medications as written. Follow-up with primary care physician for further evaluation next week. Return to ER in any difficulty breathing, return of shortness of breath, fever, chills, or other concerning symptoms. We hope you feel better soon. - Post Discharge Activity
[2017-10-09] MEDS ORDERED: ALBUTEROL SO4 2.5/IPRATROPIUM 0.5 INH SOL 3 ML VIAL.NEB. NEB ONE ×4 (10:00→10:46)
--- NOTE | 2017-10-09 10:09 | PDOC ---
Attending Attestation - Resident Resident Name: Garrison Lawson - HPI HPI: 10/09/17 10:33 The patient is a 72 year old male with significant history of hypertension, DM, CHF, COPD, DVT who presents to the ED complaining of approximately 2 days of cough and shortness of breath. Cough is productive with yellow sputum. Shortness of breath is worse with exertion. Patient denies fever, chills, nausea , vomiting, or diarrhea. - Physicial Exam PE: 10/09/17 10:37 Vitals: Triage vital signs reviewed General Appearance: No acute distress, well nourished, well developed Head: Atraumatic Neck: Supple; No nuchal rigidity Chest Wall: Nontender Cardiac: Regular rate and rhythm, no murmurs, no rubs, no gallops Lungs: +Mild wheezing, good air movement bilaterally Abdomen: Soft, nondistended, normal bowel sounds, nontender to palpation Skin: Warm and dry, no rashes or lesions, no rash, no petechiae Neuro: AOX3; Cranial Nerves 2-12 grossly intact, Strength intact to all extremities, Sensation intact to all extremities, gait normal Psych: Normal mood, normal affect Documentation prepared by Mary Castro, acting as medical scientist for Julio Carcamo MD. - Medical Decision Making 10/09/17 10:47 The patient is a 72 year old male with significant history of hypertension, DM, CHF, COPD, DVT who presents to the ED complaining of approximately 2 days of cough and shortness of breath. Documentation prepared by Mary Castro, acting as medical scientist for Julio Carcamo MD. <Mary Castro - Last Filed: 10/09/17 10:47> - Resident Resident Name: Nomi Paul - ED Attending Attestation I have performed the following: I have examined & evaluated the patient, The case was reviewed & discussed with the resident, I agree w/resident's findings & plan, Exceptions are as noted - Medical Decision Making 10/09/17 13:45 72 years old with above past medical history presents to the ED with shortness of breath slight wheezing on exam troponin and d-dimer ordered. D-dimer slightly elevated. CT with no evidence of PE Patient feels better after nebs and prednisone We'll discharge home on short course of prednisone. Findings, need for follow-up and strict return instructions discussed with patient. <Julio Carcamo - Last Filed: 10/09/17 17:18>
[2017-10-09 10:18] LABS: BASO % 1.1 % (0-2.0); HEMATOCRIT 43.6 % (35.4-49); HEMOGLOBIN 14.3 GM/dL (11.7-16.9); LYMPH % 24.4 % (8-40); MCH 28.4 pg (25.7-33.7); MCHC 32.7 g/dl (32.0-35.9); MEAN CELL VOLUME 86.9 fl (80-96); MEAN PLT VOLUME 8.6 fl (7.5-11.1); MONO % 11.6 % (3.8-10.2); NEUT % 47.9 % (42.8-82.8); PLATELET COUNT 279 K/MM3 (134-434); RBC 5.02 M/mm3 (4.00-5.60); RDW 13.2 % (11.9-15.9); WHITE BLOOD COUNT 9.4 K/mm3 (4.0-10.0)
[2017-10-09 10:40] LABS: ALBUMIN 3.5 g/dl (3.4-5.0); ANION GAP 7 (8-16); BILIRUBIN,TOTAL 0.6 mg/dL (0.2-1.0); BLOOD UREA NITROGEN 14 mg/dL (7-18); CALCIUM 8.7 mg/dL (8.5-10.1); CHLORIDE 109 mmol/L (98-107); CO2 27 mmol/L (21-32); CREATININE 0.9 mg/dL (0.7-1.3); GLUCOSE,RANDOM 110 mg/dL (74-106); POTASSIUM 3.8 mmol/L (3.5-5.1); SGOT/AST 21 U/L (15-37); SGPT/ALT 28 U/L (12-78); SODIUM 143 mmol/L (136-145)
[2017-10-09 10:44] LABS: ALK PHOS 69 U/L (45-117); TOT PROT 7.3 g/dl (6.4-8.2)
[2017-10-09] MEDS ORDERED: TETRAHYDROZOLINE HCL EYE DROPS OU ONE (13:00)
[2017-10-09] MEDS ORDERED: predniSONE 20 MG TABLET (UD) PO ONE (13:30)
[2017-10-09] MEDS ORDERED: predniSONE 20 MG TABLET (UD) ONE (13:43)
[2017-10-09 13:50] VITALS: BP 136/77; PULSE 82
--- NOTE | 2017-10-09 20:42 | EKG ---
Test Reason : Blood Pressure : / mmHG Vent. Rate : 077 BPM Atrial Rate : 077 BPM P-R Int : 174 ms QRS Dur : 104 ms QT Int : 400 ms P-R-T Axes : 048 -05 028 degrees QTc Int : 452 ms NORMAL SINUS RHYTHM NORMAL ECG WHEN COMPARED WITH ECG OF 24-JUN-2017 18:04, NONSPECIFIC T WAVE ABNORMALITY NO LONGER EVIDENT IN LATERAL LEADS Confirmed by NAYE MYERS, THIAGO ([id number]) on 10/09/2017 8:42:15 PM Referred By: Confirmed By:THIAGO YANCEY MD
== END 2017-10-09 13:50 | disposition home or self-care (01) ==
LOC: JER 09:04
PROC: 3E0F7GC Introduction of Other Therapeutic Substance into Respiratory Tract, Via Natural or Artificial Opening (ICD-10-PCS; principal; 2017-10-09)
PROC: 3E0F7GC Introduction of Other Therapeutic Substance into Respiratory Tract, Via Natural or Artificial Opening (ICD-10-PCS; 2017-10-09)
DX: J44.1 Chronic obstructive pulmonary disease with (acute) exacerbation (principal); I25.10 Atherosclerotic heart disease of native coronary artery without angina pectoris; I11.0 Hypertensive heart disease with heart failure; I10 Essential (primary) hypertension; E11.9 Type 2 diabetes mellitus without complications; J45.909 Unspecified asthma, uncomplicated; N40.0 Benign prostatic hyperplasia without lower urinary tract symptoms; Z79.82 Long term (current) use of aspirin; Z87.891 Personal history of nicotine dependence; R79.89 Other specified abnormal findings of blood chemistry
CPT/HCPCS: 36415; 71046-TC-FY; 71275-TC; 80053; 82550; 82553; 84484; 85025; 85379; 93005; 93010; 94640; 99283-25; J7620

== ENCOUNTER 2018-02-02 10:20 | Day surgery (SDC) | payer OTHER ==
[2018-02-02 11:55] VITALS: BMI 31.9
--- NOTE | 2018-02-02 12:34 | PROC ---
Endoscopy Procedure Endoscopy procedure completed. Please see scanned procedure report.
[2018-02-02 12:58] VITALS: TEMP 98
[2018-02-02 13:36] VITALS: PULSE 65
[2018-02-02 13:37] VITALS: BP 136/77
--- NOTE | 2018-02-03 16:31 | PATH ---
Surgical Pathology Report Patient Name: BENJAMIN BRODERICK [facility]. Rec. #: [id number] /Age/Gender: 1945 (Age: 72) / M Account: [id number] Location: U-ENDOSCOPY Taken: 02/02/2018 Received: 02/02/2018 Reported: 02/03/2018 Physicians: Lorenzo Garcias M.D. Specimen(s) Received A: BX 2ND PORTION DUODENUM B: BX ANTRUM AND BODY C: BX GE JUNCTION D: BX TRANSVERSE COLON POLYP E: POLYP SIGMOID Clinical History GERD, history of colon polyps Postoperative diagnosis: Esophagitis, gastritis, colon polyps Final Diagnosis A. DUODENUM, SECOND PORTION, BIOPSY: DUODENAL MUCOSA WITH MILD ACUTE AND CHRONIC DUODENITIS. B. STOMACH, ANTRUM AND BODY, BIOPSY: GASTRIC ANTRAL AND BODY MUCOSA WITH MILD CHRONIC GASTRITIS. IMMUNOHISTOCHEMICAL STAIN FOR H. PYLORI IS NEGATIVE. C. GE JUNCTION, BIOPSY: SQUAMOUS MUCOSA WITH BASAL CELL HYPERPLASIA CONSISTENT WITH SEVERE REFLUX ESOPHAGITIS. NO COLUMNAR MUCOSA, INTESTINAL METAPLASIA, OR DYSPLASIA IDENTIFIED. D. TRANSVERSE COLON, POLYP, BIOPSY: TUBULAR ADENOMA. E. SIGMOID COLON, POLYP, BIOPSY: TUBULAR ADENOMA. Electronically Signed Charo Luke M.D. Gross Description A. Received in formalin, labeled "second portion of duodenum" are 2 simon, irregular portions of soft tissue measuring 0.2 and 0.3 cm. in greatest dimension. The specimens are submitted in toto in one cassette. B. Received in formalin, labeled "antrum and body" are 2 simon, irregular portions of soft tissue averaging 0.4 cm. in greatest dimension. The specimens are submitted in toto in one cassette. C. Received in formalin, labeled "GE junction" are 2 simon, irregular portions of soft tissue measuring 0.3 and 0.6 cm. in greatest dimension. The specimens are submitted in toto in one cassette. D. Received in formalin, labeled "polyp transverse colon" are 2 simon, irregular portions of soft tissue averaging 0.3 cm. in greatest dimension. The specimens are submitted in toto in one cassette. E. Received in formalin, labeled "polyp sigmoid colon" are 2 simon, irregular portions of soft tissue measuring 0.2 and 0.3 cm. in greatest dimension. The specimens are submitted in toto in one cassette. 02/02/2018/2018
== END 2018-02-02 13:43 | disposition home or self-care (01) ==
LOC: JASU-ENDO 10:20
PROVIDERS: ATTEND Internal Medicine Gastroenterology
PROC: 0DBL8ZX Excision of Transverse Colon, Via Natural or Artificial Opening Endoscopic, Diagnostic (ICD-10-PCS; 2018-02-02)
PROC: 0DB98ZX Excision of Duodenum, Via Natural or Artificial Opening Endoscopic, Diagnostic (ICD-10-PCS; 2018-02-02)
PROC: 0DB68ZX Excision of Stomach, Via Natural or Artificial Opening Endoscopic, Diagnostic (ICD-10-PCS; 2018-02-02)
PROC: 0DB38ZX Excision of Lower Esophagus, Via Natural or Artificial Opening Endoscopic, Diagnostic (ICD-10-PCS; 2018-02-02)
PROC: 0DBN8ZX Excision of Sigmoid Colon, Via Natural or Artificial Opening Endoscopic, Diagnostic (ICD-10-PCS; principal; 2018-02-02 11:30)
DX: Z12.11 Encounter for screening for malignant neoplasm of colon (principal); K63.5 Polyp of colon; K64.8 Other hemorrhoids; K20.9 Esophagitis, unspecified; K29.70 Gastritis, unspecified, without bleeding
CPT/HCPCS: 88305-TC; 88342-TC

== ENCOUNTER 2018-04-20 11:37 | Emergency (ER) | payer OTHER ==
[2018-04-20 11:55] VITALS: BP 159/79; PULSE 90; TEMP 98.2; BMI 31.9
[2018-04-20] MEDS ORDERED: methylPREDNISolone NA SUCC 125 MG/2 ML VIAL IVPB ONE (12:38)
--- NOTE | 2018-04-20 13:06 | PDOC ---
History of Present Illness - General Chief Complaint: Shortness of Breath Stated Complaint: SOB Time Seen by Provider: 04/20/18 12:28 History Source: Patient Exam Limitations: No Limitations Past History - Past Medical History Allergies/Adverse Reactions: Allergies Allergy/AdvReac Type Severity Reaction Status Date / Time ibuprofen [From Advil] Allergy Unknown Vomiting Verified 04/20/18 11:51 azithromycin [From Zithromax] AdvReac Mild Vomiting Verified 04/20/18 11:51 Home Medications: Ambulatory Orders Aspirin [ASA -] 81 mg PO DAILY #0 tab.chew 07/31/14 Montelukast Na [Singulair -] 10 mg PO HS tablet 10/04/16 Rosuvastatin [Crestor -] 10 mg PO DAILY 12/05/16 Furosemide [Lasix -] 20 mg PO DAILY 10/09/17 Albuterol 0.083% Nebulizer Jacki [Ventolin 0.083% Nebulizer Soln -] 1 neb NEB Q4H PRN #20 vial 10/25/17 Albuterol Sulfate Inhaler - [Ventolin HFA Inhaler -] 1 - 2 inh PO Q4H PRN #1 inhaler 10/25/17 Alfuzosin HCl [Alfuzosin HCl ER] 10 mg PO DAILY 02/02/18 Budesonide/Formeterol Fumarate [SYMBICORT 160/4.5mcg -] 1 inh PO DAILY 02/02/18 Prednisone [Deltasone] 5 mg PO DAILY 02/02/18 Anemia: No Asthma: Yes Cardiac Disorders: Yes (CHF) CVA: No COPD: Yes CHF: Yes DVT: Yes Dementia: No Diabetes: Yes (NO MED - RELATED PREDISONE) GI Disorders: Yes (GERD, COLON POLYP) Disorders: Yes (ENLARGED PROSTATE) HTN: Yes Hypercholesterolemia: Yes Liver Disease: No Seizures: No Thyroid Disease: No - Surgical History Abdominal Surgery: No Appendectomy: No Cardiac Surgery: No Cholecystectomy: No Lung Surgery: No Neurologic Surgery: No Orthopedic Surgery: No - Immunization History Immunization Up to Date: Yes - Suicide/Smoking/Psychosocial Hx Smoking Status: No Smoking History: Former smoker Have you smoked in the past 12 months: No Number of Cigarettes Smoked Daily: 0 If you are a former smoker, when did you quit?: 2001 Information on smoking cessation initiated: No 'Breaking Loose' booklet given: 01/08/12 Hx Alcohol Use: No Drug/Substance Use Hx: No Substance Use Type: None Hx Substance Use Treatment: No *Physical Exam - Vital Signs Last Vital Signs Temp Pulse Resp BP Pulse Ox 98.2 F 90 24 H 159/79 97 04/20/18 11:52 04/20/18 11:52 04/20/18 11:52 04/20/18 11:52 04/20/18 11:52 Moderate Sedation - Procedure Monitoring Vital Signs: Procedure Monitoring Vital Signs Temperature 98.2 F 04/20/18 11:52 Pulse Rate 90 04/20/18 11:52 Respiratory Rate 24 H 04/20/18 11:52 Blood Pressure 159/79 04/20/18 11:52 O2 Sat by Pulse Oximetry (%) 97 04/20/18 11:52 ED Treatment Course - LABORATORY CBC & Chemistry Diagram: 04/20/18 14:33 04/20/18 13:00 *DC/Admit/Observation/Transfer Diagnosis at time of Disposition: COPD (chronic obstructive pulmonary disease) Qualifiers: COPD type: unspecified COPD Qualified Code(s): J44.9 - Chronic obstructive pulmonary disease, unspecified - Discharge Dispostion Disposition: HOME Decision to Admit order: No - Referrals Referrals: David Gaytan MD [Primary Care Provider] - - Patient Instructions Printed Discharge Instructions: DI for Chronic Obstructive Pulmonary Disease Additional Instructions: you were seen in the emergency department for shortness of breath. we gave you breathing treatments and you improved significantly. please follow up with your primary medical doctor within 72 hours after discharge for follow up care. please return to the emergency department if you have worsening symptoms or new concerning symptoms such as chest pain, fever/chills, and nausea/vomiting. thank you. - Post Discharge Activity Forms/Work/School Notes: Back to Work
[2018-04-20] MEDS ORDERED: ALBUTEROL SO4 2.5/IPRATROPIUM 0.5 INH SOL 3 ML VIAL.NEB. NEB ONE ×2 (13:31→13:53)
[2018-04-20] MEDS ORDERED: methylPREDNISolone NA SUCC 125 MG/2 ML VIAL ONE (13:31)
[2018-04-20] MEDS: ALBUTEROL SO4 2.5/IPRATROPIUM 0.5 INH SOL 3 ML VIAL.NEB. NEB SCH ×4 (13:38→14:45)
[2018-04-20 13:40] LABS: VENOUS PC02 50.5 mmHg (38-52); VENOUS PH 7.36 (7.32-7.42); VENOUS PO2 48.7 mmHg (28-48)
[2018-04-20 13:51] LABS: ALBUMIN 3.9 g/dl (3.4-5.0); ALK PHOS 79 U/L (45-117); ANION GAP 6 MMOL/L (8-16); BILIRUBIN,TOTAL 0.4 mg/dL (0.2-1); BLOOD UREA NITROGEN 13 mg/dL (7-18); CALCIUM 9.2 mg/dL (8.5-10.1); CHLORIDE 104 mmol/L (98-107); CO2 30 mmol/L (21-32); GLUCOSE,RANDOM 113 mg/dL (74-106); N-TERMINAL BNP 53.6 pg/ml (5-125); POTASSIUM 3.9 mmol/L (3.5-5.1); SGOT/AST 25 U/L (15-37); SGPT/ALT 36 U/L (13-61); SODIUM 140 mmol/L (136-145); TOT PROT 7.6 g/dl (6.4-8.2)
[2018-04-20 15:03] LABS: EOS % 7.5 % (0-4.5); HEMATOCRIT 47.6 % (35.4-49); HEMOGLOBIN 15.3 GM/dL (11.7-16.9); LYMPH % 22.1 % (8-40); MCHC 32.2 g/dl (32.0-35.9); MEAN CELL VOLUME 87.1 fl (80-96); MEAN PLT VOLUME 8.7 fl (7.5-11.1); MONO % 5.9 % (3.8-10.2); NEUT % 63.5 % (42.8-82.8); PLATELET COUNT 272 K/MM3 (134-434); RBC 5.47 M/mm3 (4.00-5.60); RDW 13.9 % (11.9-15.9)
[2018-04-20] MEDS ORDERED: ALBUTEROL SO4 0.083% IH SOL 2.5 MG/3 ML VIAL.NEB. NEB ONE ×2 (15:29→15:37)
[2018-04-20] MEDS ORDERED: AZITHROMYCIN 500 MG TABLET PO ONE (15:57)
--- NOTE | 2018-04-20 15:57 | PDOC ---
Attending Attestation - Resident Resident Name: Srinivas Mohamud - ED Attending Attestation I have performed the following: I have examined & evaluated the patient, The case was reviewed & discussed with the resident, I agree w/resident's findings & plan, Exceptions are as noted - HPI HPI: 04/20/18 15:52 The patient is a 72 year old female, with a significant PMH of HTN, COPD, DM, DVT, who presents to the emergency department with cough and shortness of breath for the past 2 days. Pt states his symptoms feel similar to prior COPD flares. Patient states he usually notices these symptoms when the weather changes. Patient reports shortness of breath and cough productive of white phlegm in the morning for 2 days. Denies any increase in shortness of breath with exertion. Patient denies any difference in the amount of distance he can ambulate. Patient has been on prednisone 5mg daily, started by Dr. Gaytan (PCP) for approximately one month. He has also been using his nebulizer at home with temporary relief. No recent travel or sick contact. The patient denies chest pain, headache and dizziness. Denies fever, chills, nausea, vomit, diarrhea and constipation. Denies dysuria, frequency, urgency and hematuria. Allergies: NKA Past surgical history: No reported alcohol, drug or cigarette use. Social history: No reported alcohol, drug or cigarette use. - Physicial Exam PE: 04/20/18 15:54 "GENERAL: Awake, alert, and fully oriented, in no acute distress. HEAD: No signs of trauma EYES: PERRLA, EOMI, sclera anicteric, conjunctiva clear ENT: Auricles normal inspection, hearing grossly normal, nares patent, oropharynx clear without exudates. Moist mucosa NECK: Nontender, no stepoffs, Normal ROM, supple, no lymphadenopathy, JVD, or masses LUNGS: + bilateral expiratory wheezes HEART: Regular rate and rhythm, normal S1 and S2, no murmurs, rubs or gallops ABDOMEN: Soft, nontender, normoactive bowel sounds. No guarding, no rebound. No masses EXTREMITIES: Normal range of motion, no edema. No clubbing or cyanosis. No cords, erythema, or tenderness NEUROLOGICAL: Cranial nerves II through XII intact. 5/5 strength and sensation in all extremities, Normal speech, normal gait, normal cerebellar function SKIN: Warm, Dry, normal turgor, no rashes or lesions noted. - Medical Decision Making 04/20/18 15:55 72 M with SOB, wheezing on exam, likely COPD exacerbation. No F/C to suggest infectious process. No chest pain to suggest ACS. No clinical signs of CHF. - Labs - CXR - Nebs, steroids, azithro 04/20/18 16:02 Labs wnl CXR clear on my read Pt reassessed - now with significantly clearer lungs. Pt subjectively reports that he feels much better. Pt satting 98% ambulating on RA. RR 16 Pt is well appearing, with normal vitals. Clinically stable for DC at this time. I discussed the physical exam findings, ancillary test results and final diagnoses with the patient. I answered all of the patient's questions. The patient was satisfied with the care received and felt comfortable with the discharge plan and treatment plan. The patient agrees to follow up with the primary care physician within 24-72 hours.
[2018-04-20] MEDS ORDERED: IBUPROFEN 600 MG TABLET (FP) PO ONE (16:01)
--- NOTE | 2018-04-21 19:02 | EKG ---
Test Reason : Blood Pressure : / mmHG Vent. Rate : 089 BPM Atrial Rate : 089 BPM P-R Int : 164 ms QRS Dur : 110 ms QT Int : 372 ms P-R-T Axes : 063 005 052 degrees QTc Int : 452 ms NORMAL SINUS RHYTHM INCOMPLETE RIGHT BUNDLE BRANCH BLOCK BORDERLINE ECG WHEN COMPARED WITH ECG OF 30-DEC-2017 01:44, NO SIGNIFICANT CHANGE WAS FOUND Confirmed by THIAGO YANCEY MD ([id number]) on 04/21/2018 7:01:39 PM Referred By: Confirmed By:THIAGO YANCEY MD
== END 2018-04-20 16:40 | disposition home or self-care (01) ==
LOC: JER 11:37
PROC: 3E0F7GC Introduction of Other Therapeutic Substance into Respiratory Tract, Via Natural or Artificial Opening (ICD-10-PCS; principal; 2018-04-20)
PROC: 3E033GC Introduction of Other Therapeutic Substance into Peripheral Vein, Percutaneous Approach (ICD-10-PCS; 2018-04-20)
DX: J44.9 Chronic obstructive pulmonary disease, unspecified (principal); Z87.891 Personal history of nicotine dependence; E78.00 Pure hypercholesterolemia, unspecified; I10 Essential (primary) hypertension
CPT/HCPCS: 36415; 71046-TC-FY; 80053; 82550; 82553; 82803; 83880; 84484; 85025; 93005; 93010; 99281-25

== ENCOUNTER 2018-05-08 10:09 | Observation (INO) | payer OTHER ==
--- NOTE | 2018-05-08 10:36 | PDOC ---
History of Present Illness - General Chief Complaint: Shortness of Breath Stated Complaint: SHORTNESS OF BREATH Time Seen by Provider: 05/08/18 10:19 - History of Present Illness Initial Comments: 05/08/18 12:17 The patient is a 72 year old male with a significant past medical history of HTN , HLD, COPD, DM, BPH, and CHF (on a daily baby aspirin and lasix 20 mg daily) who presents to the ED with worsening shortness of breath and cough. Patient was seen in the ED on 04/20/18 with similar symptoms, treated with steroids, felt better, and was discharged home. Since then, patient reports progressively worsening shortness of breath worsened on exertion and alleviated when at rest. He also reports an intermittent cough productive of yellow colored phlegm. He states he takes albuterol every half hour with no relief of symptoms. Patient states his symptoms feel similar to a cold. Denies CP, LE edema/pain, diaphoresis, recent immobility or travel. Pt has seen his PMD twice in the last week, was given antibiotics last week ( doesnt remember name) which haven't helped. Denies fever or chills. Denies abdominal pain, nausea, vomiting, or diarrhea. Denies headache, dizziness or lightheadedness. Denies dysuria or hematuria. Denies any other symptoms. Social hx: The patient lives at home with his 12 year old son and is currently going through a break up with his . Past History - Past Medical History Allergies/Adverse Reactions: Allergies Allergy/AdvReac Type Severity Reaction Status Date / Time ibuprofen [From Advil] Allergy Unknown Vomiting Verified 04/20/18 11:51 azithromycin [From Zithromax] AdvReac Mild Vomiting Verified 04/20/18 11:51 Home Medications: Ambulatory Orders Aspirin [ASA -] 81 mg PO DAILY #0 tab.chew 07/31/14 Montelukast Na [Singulair -] 10 mg PO HS tablet 10/04/16 Rosuvastatin [Crestor -] 10 mg PO DAILY 12/05/16 Furosemide [Lasix -] 20 mg PO DAILY 10/09/17 Albuterol 0.083% Nebulizer Jacki [Ventolin 0.083% Nebulizer Soln -] 1 neb NEB Q4H PRN #20 vial 10/25/17 Albuterol Sulfate Inhaler - [Ventolin HFA Inhaler -] 1 - 2 inh PO Q4H PRN #1 inhaler 10/25/17 Alfuzosin HCl [Alfuzosin HCl ER] 10 mg PO DAILY 02/02/18 Budesonide/Formeterol Fumarate [SYMBICORT 160/4.5mcg -] 1 inh PO DAILY 02/02/18 Prednisone [Deltasone] 5 mg PO DAILY 02/02/18 Anemia: No Asthma: Yes Cardiac Disorders: Yes (CHF) CVA: No COPD: Yes CHF: Yes DVT: Yes Dementia: No Diabetes: Yes (NO MED - RELATED PREDISONE) GI Disorders: Yes (GERD, COLON POLYP) Disorders: Yes (ENLARGED PROSTATE) HTN: Yes Hypercholesterolemia: Yes Liver Disease: No Seizures: No Thyroid Disease: No - Surgical History Abdominal Surgery: No Appendectomy: No Cardiac Surgery: No Cholecystectomy: No Lung Surgery: No Neurologic Surgery: No Orthopedic Surgery: No - Immunization History Immunization Up to Date: Yes - Suicide/Smoking/Psychosocial Hx Smoking Status: No Smoking History: Never smoked Have you smoked in the past 12 months: No Number of Cigarettes Smoked Daily: 0 If you are a former smoker, when did you quit?: 2001 Information on smoking cessation initiated: No 'Breaking Loose' booklet given: 01/08/12 Hx Alcohol Use: No Drug/Substance Use Hx: No Substance Use Type: None Hx Substance Use Treatment: No Review of Systems - Review of Systems Comments:: 05/08/18 12:25 GENERAL/CONSTITUTIONAL: No fever or chills. No weakness. HEAD, EYES, EARS, NOSE AND THROAT: No change in vision. No ear pain or discharge. No sore throat. GASTROINTESTINAL: No nausea, vomiting, diarrhea or constipation. GENITOURINARY: No dysuria, frequency, or change in urination. CARDIOVASCULAR: No chest pain. RESPIRATORY: + cough, shortness of breath. No hemoptysis. MUSCULOSKELETAL: No joint or muscle swelling or pain. No neck or back pain. SKIN: No rash NEUROLOGIC: No headache, vertigo, loss of consciousness, or change in strength/ sensation. ENDOCRINE: No increased thirst. No abnormal weight change. HEMATOLOGIC/LYMPHATIC: No anemia, easy bleeding, or history of blood clots. ALLERGIC/IMMUNOLOGIC: No hives or skin allergy *Physical Exam - Vital Signs Last Vital Signs Temp Pulse Resp BP Pulse Ox 98.4 F 90 16 150/79 98 05/08/18 10:11 05/08/18 10:11 05/08/18 10:11 05/08/18 10:11 05/08/18 10:11 - Physical Exam Comments: 05/08/18 12:26 GENERAL: Awake, alert, and fully oriented, in no acute distress EYES: PERRLA, EOMI, sclera anicteric, conjunctiva clear ENT: Nares patent, oropharynx clear without exudates. Moist mucosa NECK: Normal ROM, supple, no lymphadenopathy, JVD, or masses LUNGS: +diffuse wheezing, prolonged expiratory phase, fair air movement. No crackles, no increased WOB HEART: Regular rate and rhythm, normal S1 and S2, no murmurs, rubs or gallops ABDOMEN: Soft, nontender, normoactive bowel sounds. No guarding, no rebound. No masses EXTREMITIES: + Trace lower extremity symmetric pitting edema. Normal range of motion. No clubbing or cyanosis. No cords, erythema, or tenderness NEUROLOGICAL: Normal speech, cranial nerves intact, negative pronator drift, equal strength and sensation b/l, normal gait SKIN: Warm, Dry, normal turgor, no rashes or lesions noted. Moderate Sedation - Procedure Monitoring Vital Signs: Procedure Monitoring Vital Signs Temperature 98.4 F 05/08/18 10:11 Pulse Rate 90 05/08/18 10:11 Respiratory Rate 16 05/08/18 10:11 Blood Pressure 150/79 05/08/18 10:11 O2 Sat by Pulse Oximetry (%) 98 05/08/18 10:11 Heart Score/ECG Review #1 05/08/18 12:27 Twelve-lead EKG was performed and reviewed by me. Normal sinus rhythm, rate 80. Normal axis. No ST elevations. Isolated T-wave inversion in lead 3. T wave flattening in aVF. Compared to EKG from 04/20/2018, T-wave inversion in lead 3 is new. ED Treatment Course - LABORATORY CBC & Chemistry Diagram: 05/08/18 10:35 05/08/18 10:35 Medical Decision Making - Medical Decision Making 05/08/18 10:38 72yo M hx COPD (on daily pred, montelukast, ventolin PRN), HL, CHF on lasix 20mg qday presents to the ED with progressive ESPINOZA, wheezing, productive cough despite nebs, steroid course, z-pack, unknown antibiotic. Exam with diffuse wheezing, poor air movement, trace symmetric LE pitting edema. Concern for COPD exacerbation with possible superimposed mild CHF exacerbation. Unlikely PE as no cp, no risk factors, tachycardia, hypoxia. ACS on ddx as well but no CP, and with wheezing on exam, COPD more likely. Plan -labs -XR -EKG -Mg, duonebs, methylpred -reassess 05/08/18 14:54 Pt reassessed +persistent diffuse wheezing Labs wnl, CXR clear Likely COPD exacerbation Case discussed with Dr. Gaytan's [employer] [facility], will admit pt for obs Redosed nebs Plan discussed with pt who is amenable to staying Case discussed in detail with admitting physician including history, physical exam and ancillary studies. Admitting physician has assumed care for the patient, will follow all pending diagnostics and will complete the evaluation and treatment. *DC/Admit/Observation/Transfer Diagnosis at time of Disposition: COPD (chronic obstructive pulmonary disease), Shortness of breath, COPD exacerbation - Discharge Dispostion Condition at time of disposition: Stable Decision to Admit order: Yes - Referrals Referrals: David Gaytan MD [Primary Care Provider] - - Patient Instructions - Post Discharge Activity - Attestations Physician Attestion: 05/08/18 14:58 I, Dr. Dafne Dela Cruz MD, attest that this document has been prepared under my direction and personally reviewed by me in its entirety. I further attest, that it accurately reflects all work, treatment, procedures and medical decision -making performed by me.
[2018-05-08] MEDS ORDERED: methylPREDNISolone NA SUCC 125 MG/2 ML VIAL IVPUSH ONE (10:44)
[2018-05-08] MEDS ORDERED: ALBUTEROL SO4 2.5/IPRATROPIUM 0.5 INH SOL 3 ML VIAL.NEB. NEB ONE ×4 (10:44→15:39)
[2018-05-08] MEDS ORDERED: MAGNESIUM 1GM/D5W - 2 GM/200 ML IVPB IVPB ONE (10:52)
[2018-05-08] MEDS ORDERED: ALBUTEROL SO4 0.083% IH SOL 2.5 MG/3 ML VIAL.NEB. NEB ONE (10:52)
[2018-05-08] MEDS ORDERED: methylPREDNISolone NA SUCC 125 MG/2 ML VIAL ONE (10:52)
[2018-05-08 11:04] LABS: BASO % 0.5 % (0-2.0); EOS % 12.8 % (0-4.5); HEMATOCRIT 44.4 % (35.4-49); HEMOGLOBIN 14.4 GM/dL (11.7-16.9); LYMPH % 14.4 % (8-40); MCH 28.3 pg (25.7-33.7); MCHC 32.4 g/dl (32.0-35.9); MEAN CELL VOLUME 87.4 fl (80-96); MEAN PLT VOLUME 8.1 fl (7.5-11.1); MONO % 7.9 % (3.8-10.2); NEUT % 64.4 % (42.8-82.8); PLATELET COUNT 214 K/MM3 (134-434); RBC 5.08 M/mm3 (4.00-5.60); RDW 13.8 % (11.9-15.9); WHITE BLOOD COUNT 10.7 K/mm3 (4.0-10.0)
[2018-05-08 11:08] LABS: VENOUS PC02 44.8 mmHg (38-52); VENOUS PH 7.4 (7.32-7.42); VENOUS PO2 57.1 mmHg (28-48)
[2018-05-08 13:37] LABS: ALBUMIN 3.6 g/dl (3.4-5.0); ALK PHOS 71 U/L (45-117); ANION GAP 8 MMOL/L (8-16); BILIRUBIN,TOTAL 0.6 mg/dL (0.2-1); BLOOD UREA NITROGEN 18 mg/dL (7-18); CHLORIDE 106 mmol/L (98-107); CO2 26 mmol/L (21-32); GLUCOSE,RANDOM 140 mg/dL (74-106); N-TERMINAL BNP 13.4 pg/ml (5-125); POTASSIUM 3.9 mmol/L (3.5-5.1); SGOT/AST 50 U/L (15-37); SGPT/ALT 53 U/L (13-61); SODIUM 140 mmol/L (136-145); TOT PROT 6.9 g/dl (6.4-8.2)
--- NOTE | 2018-05-08 14:30 | EKG ---
Test Reason : Blood Pressure : / mmHG Vent. Rate : 080 BPM Atrial Rate : 080 BPM P-R Int : 144 ms QRS Dur : 116 ms QT Int : 402 ms P-R-T Axes : -16 046 -08 degrees QTc Int : 463 ms NORMAL SINUS RHYTHM SEPTAL INFARCT , AGE UNDETERMINED INFERIOR INFARCT , AGE UNDETERMINED ABNORMAL ECG WHEN COMPARED WITH ECG OF 20-APR-2018 11:46, INCOMPLETE RIGHT BUNDLE BRANCH BLOCK IS NO LONGER PRESENT INFERIOR INFARCT IS NOW PRESENT T WAVE INVERSION NOW EVIDENT IN INFERIOR LEADS Confirmed by Spencer Mullen ([id number]) on 05/08/2018 2:30:11 PM Referred By: Confirmed By:Spencer Mullen
[2018-05-08] MEDS ORDERED: AZITHROMYCIN IVPB 250 MG in DEXTROSE 5%-WATER - 250 ML IVPB ONE (15:30)
[2018-05-08] MEDS ORDERED: SODIUM CHLORIDE 1,000 ML IV SCH (15:30)
[2018-05-08] MEDS ORDERED: AZITHROMYCIN IVPB 500 MG/250 ML BAG IVPB ONE (15:39)
[2018-05-08 17:51] VITALS: BMI 32.1
[2018-05-08 20:03] LABS: HEMATOCRIT 43.3 % (35.4-49); HEMOGLOBIN 14.7 GM/dL (11.7-16.9); MCH 29.6 pg (25.7-33.7); MCHC 34.1 g/dl (32.0-35.9); MEAN CELL VOLUME 86.9 fl (80-96); PLATELET COUNT 241 K/MM3 (134-434); RBC 4.98 M/mm3 (4.00-5.60); WHITE BLOOD COUNT 9.9 K/mm3 (4.0-10.0)
[2018-05-08] MEDS ORDERED: methylPREDNISolone NA SUCC 125 MG/2 ML VIAL IVPUSH SCH (21:00)
[2018-05-08 21:01] LABS: ALBUMIN 3.6 g/dl (3.4-5.0); ALK PHOS 75 U/L (45-117); ANION GAP 7 MMOL/L (8-16); BILIRUBIN,TOTAL 0.6 mg/dL (0.2-1); BLOOD UREA NITROGEN 19 mg/dL (7-18); CHLORIDE 105 mmol/L (98-107); CO2 27 mmol/L (21-32); CREATININE 1.2 mg/dL (0.55-1.3); GLUCOSE,RANDOM 199 mg/dL (74-106); POTASSIUM 4.7 mmol/L (3.5-5.1); SGOT/AST 41 U/L (15-37); SGPT/ALT 53 U/L (13-61); SODIUM 139 mmol/L (136-145); TOT PROT 7.2 g/dl (6.4-8.2)
[2018-05-08] MEDS ORDERED: methylPREDNISolone NA SUCC 40 MG/1 ML VIAL IVPUSH SCH (21:10)
[2018-05-08] MEDS: methylPREDNISolone NA SUCC 40 MG/1 ML VIAL IVPUSH SCH (21:28)
[2018-05-08] MEDS: ALBUTEROL SO4 2.5/IPRATROPIUM 0.5 INH SOL 3 ML VIAL.NEB. NEB SCH (21:50)
[2018-05-09] MEDS: methylPREDNISolone NA SUCC 40 MG/1 ML VIAL IVPUSH SCH ×4 (02:13→20:11)
[2018-05-09] MEDS: INSULIN SLIDING SCALE (NOVOLOG) 1 VIAL SQ SCH ×2 (06:28→15:46)
[2018-05-09] MEDS ORDERED: INSULIN SLIDING SCALE (NOVOLOG) 1 VIAL SQ SCH (07:00)
[2018-05-09] MEDS: ALBUTEROL SO4 2.5/IPRATROPIUM 0.5 INH SOL 3 ML VIAL.NEB. NEB SCH ×3 (08:25→19:36)
[2018-05-09 08:45] LABS: GLUCOSE,RANDOM 161 mg/dL (74-106)
[2018-05-09 08:46] LABS: ALBUMIN 3.6 g/dl (3.4-5.0); ANION GAP 8 MMOL/L (8-16); BILIRUBIN,TOTAL 0.5 mg/dL (0.2-1); BLOOD UREA NITROGEN 18 mg/dL (7-18); CALCIUM 9.1 mg/dL (8.5-10.1); CHLORIDE 106 mmol/L (98-107); CO2 25 mmol/L (21-32); CREATININE 0.8 mg/dL (0.55-1.3); POTASSIUM 4.6 mmol/L (3.5-5.1); SODIUM 139 mmol/L (136-145); TOT PROT 7.2 g/dl (6.4-8.2)
[2018-05-09 08:47] LABS: ALK PHOS 75 U/L (45-117); SGOT/AST 36 U/L (15-37); SGPT/ALT 53 U/L (13-61)
--- NOTE | 2018-05-09 09:01 | PN ---
Progress Note (short form) - Note Progress Note: ID consult dictated imp/reccd copd exacerbation no signs pneumonia influenza screen rsv antigen improved after ER treatment management per pulmonary no signs pneumonia/infection at this time recent multiple courses of zithromax Problem List - Problems (1) COPD exacerbation Code(s): J44.1 - CHRONIC OBSTRUCTIVE PULMONARY DISEASE W (ACUTE) EXACERBATION
[2018-05-09] MEDS ORDERED: PT OWN MED DRAWER 7, Y5N ONE (09:15)
[2018-05-09] MEDS: BUDESONIDE/FORMETEROL FUMARATE 160/4.5 mcg INHALER IH SCH (09:17)
[2018-05-09] MEDS: FUROSEMIDE 20 MG TABLET (FP) PO SCH (09:18)
--- NOTE | 2018-05-09 11:00 | PN ---
Progress Note (short form) - Note Progress Note: PULMONARY CONSULTATION DICTATED 05/09/18 IMP COPD EXACERBATION H/O CHF HTN HLD DM BPH ELEVATED CPK PLAN IV STEROIDS O2 INHALED BRONCHODILATORS ABX PER ID PFTS OUTPATIENT TREND CPK DR MARROQUIN Problem List - Problems (1) Shortness of breath Code(s): R06.02 - SHORTNESS OF BREATH (2) Acute exacerbation of chronic obstructive pulmonary disease (COPD) Code(s): J44.1 - CHRONIC OBSTRUCTIVE PULMONARY DISEASE W (ACUTE) EXACERBATION (3) CHF (congestive heart failure) Code(s): I50.9 - HEART FAILURE, UNSPECIFIED (4) DM (diabetes mellitus) Code(s): E11.9 - TYPE 2 DIABETES MELLITUS WITHOUT COMPLICATIONS Qualifiers: Diabetes mellitus type: type 2 Diabetes mellitus complication status: with ophthalmic complications (5) Dyspnea Code(s): R06.00 - DYSPNEA, UNSPECIFIED Qualifiers: Dyspnea type: dyspnea on exertion Qualified Code(s): R06.09 - Other forms of dyspnea (6) HTN (hypertension) Code(s): I10 - ESSENTIAL (PRIMARY) HYPERTENSION Qualifiers: Hypertension type: essential hypertension Qualified Code(s): I10 - Essential (primary) hypertension
--- NOTE | 2018-05-09 11:38 | CONS ---
DATE OF CONSULTATION: 05/09/2018 REFERRING PHYSICIAN: David Gaytan MD HISTORY OF PRESENT ILLNESS: The patient is an 72-year-old black male known to me from previous hospitalization with a past medical history of chronic obstructive pulmonary disease, hypertension, hyperlipidemia, diabetes, CHF, BPH, history of tobacco use (approximately 1 pack per day for many years, quit 30 years ago), admitted to [facility] with complaint of increasing shortness of breath and cough and chest congestion. Patient was in the emergency room on April 20 with similar symptoms. At the time, he was treated with steroids, inhaled bronchodilators, and discharged home. Apparently, since the recent ER visit, he had progressive shortness of breath, dyspnea on exertion, and also complained of a cough productive of yellowish sputum. Denes hemoptysis. He states he has been using inhaled beta2-agonist on a frequent basis without any improvement. He denies any chest pain, palpitations, nausea, vomiting, or diaphoresis. There is no history of recent travel. Patient apparently was seen by his PMD 1 week ago, prescribed antibiotic, but he is not sure of the name. PAST MEDICAL HISTORY: Again includes COPD, hypertension, hyperlipidemia, diabetes, BPH, and congestive heart failure. REVIEW OF SYSTEMS: Positive for shortness of breath. Positive for cough. Positive for sputum. No fever. No chills. No chest pain. No palpitations. No hemoptysis. No abdominal pain. No lower extremity edema. SOCIAL HISTORY: History of tobacco use, 1 pack per day for many years, quit 30 years ago. Positive for occupational exposure to chemicals. CURRENT MEDICATIONS: Include Symbicort, Solu-Medrol, Duo-Neb, normal saline, NovoLog, and Lasix. PHYSICAL EXAMINATION: General: The patient is a well-developed, well-nourished male, awake, alert, in no acute distress. Vital signs: He is currently afebrile, blood pressure is 149/84, respiratory rate 20, O2 saturation is 93% on room air. HEENT: Head is normocephalic atraumatic. Neck: Supple. Heart: Regular, S1, S2. Chest: Clear. A few scattered bilateral wheezes. Abdomen: Soft. Bowel sounds positive. Extremities: No cyanosis or edema. LABORATORIES: WBC is 9.9, hemoglobin 14.7, hematocrit 43.3, platelet count is 241,000. Venous blood gas with pH of 7.40, pCO2 of 44, pO2 of 57, and a bicarbonate of 27. BUN 18, creatinine 0.8. Troponin 0.3. CPK 1181. Chest x-ray no infiltrates and no effusions. IMPRESSION: 1. Chronic obstructive pulmonary disease with acute exacerbation likely secondary to upper respiratory infection. 2. History of congestive heart failure, currently stable. 3. Hypertension. 4. Hyperlipidemia. 5. Diabetes. 6. Benign prostatic hypertrophy. 7. Elevated CPK (creatine phosphokinase test). PLAN: Continue IV steroids, inhaled bronchodilator, supplemental O2, antibiotics as per infectious disease, PFTs, track CPK levels, PFT as outpatient, trend CPK. YEVGENIY MARROQUIN M.D. [id number]
--- NOTE | 2018-05-09 12:00 | CONS ---
DATE OF CONSULTATION: 05/09/2018 REQUESTED BY: David Gaytan MD This is a 72-year-old man with past medical history of COPD. He presented to the hospital with shortness of breath and wheezing 2 weeks ago, early April. He was seen in the emergency room and discharged on nebulizers, steroids, and Zithromax. He improved somewhat. This past Tuesday, he became short of breath and started wheezing again. He was seen by his PMD and placed back on Zithromax. He went back to see the doctor again on with some more complaints, and came to the emergency room yesterday, again with complaints of shortness of breath and wheezing. He denies any cough. He has no fevers or chills. He has no hemoptysis. He has white sputum. He has been using his albuterol and he has been taking Zithromax. He denies any abdominal pain, nausea, vomiting or diarrhea. He has no chest pain. There is no dysuria. He is allergic to IBUPROFEN. His medications at home include aspirin, Singulair, Crestor, Lasix, albuterol nebulizer, Zosyn, Symbicort, and prednisone. His past medical history is notable for asthma, heart failure, COPD, DVT. He has an enlarged prostate, a history of GERD, hypertension, hypercholesterolemia. Surgical history is unremarkable. SOCIAL HISTORY: Lives at home with his son, who is 12. There is no history of any cigarette use or substance use. REVIEW OF SYSTEMS: As per HPI. PHYSICAL EXAMINATION: General: A pleasant man in no acute distress. Vital Signs: Temperature is 97.9. Pulse rate 86. Blood pressure 149/84. Respiratory rate is 20. HEENT: Normocephalic. His eyes are anicteric. Neck: Supple. Lungs: Bilateral wheezing throughout. Heart: Regular rate and rhythm. Abdomen: Soft, nontender. Extremities: Without edema. His labs are notable for white count of 9.9, hemoglobin 14.7, platelets 241. BUN 19, creatinine 1.2, currently BUN 18 and creatinine 0.8. LFTs are normal. Chest x-ray has no infiltrate. In summary, this is a 72-year-old man with COPD exacerbation, no signs of pneumonia or infection, improved after ER treatment. Would manage per Pulmonary. No signs of infection at this time. He has had recent multiple courses of Zithromax. Would suggest, for completeness, if he has not had influenza screen, that we do that, so will order. TALHA JENNINGS M.D. [id number]
--- NOTE | 2018-05-09 13:47 | PN ---
Progress Note, Physician - Current Medication List Current Medications: Active Medications Albuterol/Ipratropium (Duoneb -) 1 amp NEB RTID [facility] Last Admin: 05/09/18 08:25 Dose: 1 amp Budesonide/Formoterol Fumarate (Symbicort 160/4.5mcg -) 1 puff IH DAILY [facility] Last Admin: 05/09/18 09:17 Dose: 1 puff Furosemide (Lasix -) 20 mg PO DAILY [facility] Last Admin: 05/09/18 09:18 Dose: 20 mg Sodium Chloride (Normal Saline -) 1,000 mls @ 50 mls/hr IV ASDIR BRIT Stop: 05/09/18 15:19 Last Admin: 05/08/18 15:38 Dose: 50 mls/hr Insulin Aspart (Novolog Vial Sliding Scale -) 1 vial SQ BIDAC [facility]; Protocol Last Admin: 05/09/18 06:28 Dose: 2 units Methylprednisolone Sodium Succinate (Solu-Medrol -) 60 mg IVPUSH Q6H-IV BRIT Last Admin: 05/09/18 09:19 Dose: 60 mg - Objective Vital Signs: Vital Signs Temperature 97.9 F 05/09/18 08:53 Pulse Rate 86 05/09/18 08:53 Respiratory Rate 20 05/09/18 08:53 Blood Pressure 149/84 05/09/18 08:53 O2 Sat by Pulse Oximetry (%) 93 L 05/09/18 08:55 Labs: CBC, BMP 05/08/18 19:30 05/09/18 06:00
--- NOTE | 2018-05-09 13:48 | HP ---
Admitting History and Physical - Primary Care Physician PCP: David Gaytan - Admission Chief Complaint: DYSPNEA/SOB History of Present Illness: The patient is a 72 year old male with a significant past medical history of HTN , HLD, COPD, DM, BPH, and CHF (on a daily baby aspirin and lasix 20 mg daily) who presents to the ED with worsening shortness of breath and cough. Patient was seen in the ED on 04/20/18 with similar symptoms, treated with steroids, felt better, and was discharged home. Since then, patient reports progressively worsening shortness of breath worsened on exertion and alleviated when at rest. He also reports an intermittent cough productive of yellow colored phlegm. He states he takes albuterol every half hour with no relief of symptoms. Patient states his symptoms feel similar to a cold. Denies CP, LE edema/pain, diaphoresis, recent immobility or travel. History Source: Patient - Past Medical History Cardiovascular: Yes: HTN, Hyperlipdemia, Pulmonary Hypertension, Other Pulmonary: Yes: Asthma, COPD Gastrointestinal: Yes: Ulcerative Colitis (PULM/CCM ). No: Ascites, Cancer, Constipation, Crohn's Disease, Diverticulitis, Diverticulosis, Esophageal Varices, Gastritis, GERD, GI Bleed, Hemorrhoids, Hiatal Hernia, Inflamatory Bowel Disease, Irritable Bowel Disease, Pancreatitis, Peptic Ulcer Disease, Other Endocrine: Yes: Diabetes Mellitus. No: Donavon's Disease, Pako's Disease, Diabetes Insipidus, Hyperparathyroidism, Hyperthyroidism, Hypothyroidism, Osteopenia, SIADH, Other - Smoking History Smoking history: Never smoked Have you smoked in the past 12 months: No Aproximately how many cigarettes per day: 0 If you are a former smoker, when did you quit?: 2001 - Alcohol/Substance Use Hx Alcohol Use: No - Social History ADL: Independent History of Recent Travel: No Home Medications - Allergies Allergies/Adverse Reactions: Allergies Allergy/AdvReac Type Severity Reaction Status Date / Time ibuprofen [From Advil] Allergy Unknown Vomiting Verified 04/20/18 11:51 azithromycin [From Zithromax] AdvReac Mild Vomiting Verified 04/20/18 11:51 - Home Medications Home Medications: Ambulatory Orders Aspirin [ASA -] 81 mg PO DAILY #0 tab.chew 07/31/14 Montelukast Na [Singulair -] 10 mg PO HS tablet 10/04/16 Rosuvastatin [Crestor -] 10 mg PO DAILY 12/05/16 Furosemide [Lasix -] 20 mg PO DAILY 10/09/17 Albuterol 0.083% Nebulizer Jacki [Ventolin 0.083% Nebulizer Soln -] 1 neb NEB Q4H PRN #20 vial 10/25/17 Albuterol Sulfate Inhaler - [Ventolin HFA Inhaler -] 1 - 2 inh PO Q4H PRN #1 inhaler 10/25/17 Alfuzosin HCl [Alfuzosin HCl ER] 10 mg PO DAILY 02/02/18 Budesonide/Formeterol Fumarate [SYMBICORT 160/4.5mcg -] 1 inh PO DAILY 02/02/18 Prednisone [Deltasone] 5 mg PO DAILY 02/02/18 Review of Systems - Review of Systems Constitutional: reports: Weakness Eyes: reports: No Symptoms HENT: reports: No Symptoms Neck: reports: No Symptoms Cardiovascular: reports: Shortness of Breath Respiratory: reports: Cough, Orthopnea, SOB Gastrointestinal: reports: No Symptoms Genitourinary: reports: No Symptoms Musculoskeletal: reports: No Symptoms Integumentary: reports: No Symptoms Neurological: reports: No Symptoms Endocrine: reports: No Symptoms Hematology/Lymphatic: reports: No Symptoms Psychiatric: reports: No Symptoms Physical Examination Vital Signs: Vital Signs Temperature 97.9 F 05/09/18 08:53 Pulse Rate 86 05/09/18 08:53 Respiratory Rate 20 05/09/18 08:53 Blood Pressure 149/84 05/09/18 08:53 O2 Sat by Pulse Oximetry (%) 93 L 05/09/18 08:55 Constitutional: Yes: Mild Distress Eyes: Yes: WNL HENT: Yes: WNL Neck: Yes: WNL Cardiovascular: Yes: Regular Rate and Rhythm Respiratory: Yes: Cough, Diminished, On Nasal O2, Poor Air Entry Gastrointestinal: Yes: WNL Musculoskeletal: Yes: WNL Extremities: Yes: WNL Edema: Yes Edema: LLE: Trace, RLE: Trace Peripheral Pulses WNL: Yes Integumentary: Yes: WNL Wound/Incision: Yes: Clean/Dry Neurological: Yes: WNL ...Motor Strength: WNL Psychiatric: Yes: WNL Labs: CBC, BMP 05/08/18 19:30 05/09/18 06:00 Imaging - Results Chest X-ray: Report Reviewed Cat Scan: Pending Problem List - Problems (1) COPD (chronic obstructive pulmonary disease) Code(s): J44.9 - CHRONIC OBSTRUCTIVE PULMONARY DISEASE, UNSPECIFIED Qualifiers: (2) COPD exacerbation Code(s): J44.1 - CHRONIC OBSTRUCTIVE PULMONARY DISEASE W (ACUTE) EXACERBATION (3) Shortness of breath Code(s): R06.02 - SHORTNESS OF BREATH (4) Acute exacerbation of CHF (congestive heart failure) Code(s): I50.9 - HEART FAILURE, UNSPECIFIED Qualifiers: Qualified Code(s): I50.9 - Heart failure, unspecified (5) Acute exacerbation of chronic obstructive pulmonary disease (COPD) Code(s): J44.1 - CHRONIC OBSTRUCTIVE PULMONARY DISEASE W (ACUTE) EXACERBATION (6) DM (diabetes mellitus) Code(s): E11.9 - TYPE 2 DIABETES MELLITUS WITHOUT COMPLICATIONS Qualifiers: Diabetes mellitus type: type 2 Diabetes mellitus complication status: with ophthalmic complications (7) Dyspnea Code(s): R06.00 - DYSPNEA, UNSPECIFIED Qualifiers: Dyspnea type: dyspnea on exertion Qualified Code(s): R06.09 - Other forms of dyspnea (8) HTN (hypertension) Code(s): I10 - ESSENTIAL (PRIMARY) HYPERTENSION Qualifiers: Hypertension type: essential hypertension Qualified Code(s): I10 - Essential (primary) hypertension Assessment/Plan PNA VERSUS COPD EXACERBATION [address] SCAN TO DIFFERENTIATE FROM THE TWO. NEBS STEROIDS BEDRESR DVT PROPHYLAXIS ON TELEMETRY
[2018-05-10] MEDS: methylPREDNISolone NA SUCC 40 MG/1 ML VIAL IVPUSH SCH ×3 (02:08→16:17)
[2018-05-10] MEDS: INSULIN SLIDING SCALE (NOVOLOG) 1 VIAL SQ SCH (06:10)
[2018-05-10] MEDS: ALBUTEROL SO4 2.5/IPRATROPIUM 0.5 INH SOL 3 ML VIAL.NEB. NEB SCH (08:50)
[2018-05-10] MEDS ORDERED: PT OWN MED DRAWER 7, Y5N ONE (09:26)
[2018-05-10] MEDS: BUDESONIDE/FORMETEROL FUMARATE 160/4.5 mcg INHALER IH SCH (09:56)
[2018-05-10] MEDS: FUROSEMIDE 20 MG TABLET (FP) PO SCH (09:56)
--- NOTE | 2018-05-10 11:27 | DS ---
Physical Examination Vital Signs: Vital Signs Temperature 98.0 F 05/10/18 09:52 Pulse Rate 89 05/10/18 09:52 Respiratory Rate 20 05/10/18 09:52 Blood Pressure 139/73 05/10/18 09:52 O2 Sat by Pulse Oximetry (%) 95 05/09/18 21:00 Constitutional: Yes: No Distress Eyes: Yes: WNL HENT: Yes: WNL Neck: Yes: WNL Cardiovascular: Yes: WNL Respiratory: Yes: CTA Bilaterally Gastrointestinal: Yes: WNL Renal/: Yes: WNL Musculoskeletal: Yes: WNL Extremities: Yes: WNL Edema: No Peripheral Pulses WNL: Yes Integumentary: Yes: WNL Wound/Incision: Yes: Clean/Dry Neurological: Yes: WNL ...Motor Strength: WNL Psychiatric: Yes: WNL Labs: CBC, BMP 05/08/18 19:30 05/09/18 06:00 Discharge Summary Reason For Visit: SHORTNESS OF BREATH,COPD Current Active Problems COPD (chronic obstructive pulmonary disease) (Acute) COPD exacerbation (Acute) Shortness of breath (Acute) Procedures: Principal: CT SCAN/ECHO Hospital Course: ADMITTED ACUTE EXACERBATION OF COPD/ASTHMA TTREATED WITH IV STEROIDS Condition: Improved - Instructions Diet, Activity, Other Instructions: SEE DR GAYTAN IN 1 WEEK PREDNISONE TAPER FOR 12 DAYS Referrals: David Gaytan MD [Primary Care Provider] - Disposition: HOME - Home Medications Comprehensive Discharge Medication List: Ambulatory Orders Aspirin [ASA -] 81 mg PO DAILY #0 tab.chew 07/31/14 Montelukast Na [Singulair -] 10 mg PO HS tablet 10/04/16 Rosuvastatin [Crestor -] 10 mg PO DAILY 12/05/16 Furosemide [Lasix -] 20 mg PO DAILY 10/09/17 Albuterol 0.083% Nebulizer Jacki [Ventolin 0.083% Nebulizer Soln -] 1 neb NEB Q4H PRN #20 vial 10/25/17 Albuterol Sulfate Inhaler - [Ventolin HFA Inhaler -] 1 - 2 inh PO Q4H PRN #1 inhaler 10/25/17 Alfuzosin HCl [Alfuzosin HCl ER] 10 mg PO DAILY 02/02/18 Budesonide/Formeterol Fumarate [SYMBICORT 160/4.5mcg -] 1 inh PO DAILY 02/02/18 Albuterol 2.5/Ipratropium 0.5 [Duoneb -] 1 amp NEB RTID amp 05/10/18 Budesonide/Formeterol Fumarate [SYMBICORT 160/4.5mcg -] 1 puff IH DAILY inhaler 05/10/18 Prednisone See Taper PO DAILY 12 Days tablet 05/10/18 Prednisone [Deltasone] See Taper PO DAILY 12 Days tablet 05/10/18 Prednisone [Prednisone 50 MG TABLETS] See Taper PO DAILY 12 Days tablet
--- NOTE | 2018-05-10 13:14 | ECHO ---
Version: 1 Name: BENJAMIN BRODERICK Exam: Adult Echocardiogram Study Date: 05/10/2018, 10:44 AM Age: 72 Years MMode/2D Measurements & Calculations IVSd: 0.83 cm LVIDs: 2.7 cm LVIDd: 5.4 cm LVPWd: 0.96 cm ACS: 2.18 cm Ao root diam: 4.0 cm LVOT diam: 1.90 cm LA dimension: 3.7 cm Doppler Measurements & Calculations MV E max jose: 79.5 cm/sec Med E/e': 11.6 MV A max jose: 88.4 cm/sec Med Peak E' Jose: 6.8 cm/sec MV E/A: 0.90 Lat E/e': 7.8 Lat Peak E' Jose: 10.1 cm/sec Ao max P.9 mmHg MARGIE(I,D): 1.79 cm Ao mean P.3 mmHg LV V1 mean: 89.0 cm/sec Ao V2 max: 199.4 cm/sec LV V1 mean P.5 mmHg TR max jose: 217.2 cm/sec TR max P.9 mmHg Procedure A two-dimensional transthoracic echocardiogram with color flow and Doppler was performed. The study was technically difficult with many images being suboptimal in quality. Left Ventricle The left ventricular size, thickness and function are normal. The left ventricular ejection fraction is normal. E/A reversal consistent with but not diagnostic of poor LV compliance. Regional wall motion abnormalities cannot be excluded due to limited visualization. Right Ventricle The right ventricle is not well visualized. Atria The left atrium is mildly dilated. The right atrium is mildly dilated. Mitral Valve The mitral valve is not well visualized. There is no mitral valve stenosis. There is mild mitral regurgitation. Tricuspid Valve The tricuspid valve is not well visualized. There is no tricuspid stenosis. There is mild tricuspid regurgitation. Right ventricular systolic pressure is normal. Aortic Valve The aortic valve is not well visualized. Mild valvular aortic stenosis. No aortic regurgitation is p resent. Great Vessels Mild aortic root dilatation. Pericardium/Pleura There is no pericardial effusion. Summary Statements Mild aortic root dilatation. The study was technically difficult with many images being suboptimal in quality. The left atrium is mildly dilated. The right atrium is mildly dilated. The left ventricular size, thickness and function are normal The left ventricular ejection fraction is normal. Regional wall motion abnormalities cannot be excluded due to limited visualization. E/A reversal consistent with but not diagnostic of poor LV compliance There is mild mitral regurgitation. There is mild tricuspid regurgitation. Right ventricular systolic pressure is normal. Mild valvular aortic stenosis. MD Berto Day 05/10/2018, 1:13 PM Ordering Physician: David Gaytan Referring Physician: David Gaytan Performed By: Shereen Morrissey
[2018-05-10 13:51] VITALS: BP 141/84; PULSE 85; TEMP 98.2
--- NOTE | 2018-05-10 14:28 | CON.CARD ---
Consult Consult Specialty:: Cardiology Referred by:: Dr. Gaytan Reason for Consultation:: SOB - History of Present Illness Chief Complaint: SOB History of Present Illness: 72 year old man with pmh HTN, DMII, COPD admitted with sob. pt treated for AE COPD and improved. Echo done today showed normal LV systolic function mild valvular abnl. Pt is being discharged. he was seen and examined today in [facility]. states he is feeling better. no pnd, orthopnea, or le edema. no chest pain. - History Source History Provided By: Patient, Medical Record Limitations to Obtaining History: No Limitations - Past Medical History Cardio/Vascular: Yes: HTN, Hyperlipdemia, Pulmonary Hypertension, Other Pulmonary: Yes: Asthma, COPD Gastrointestinal: Yes: Ulcerative Colitis (PULM/CCM ). No: Ascites, Cancer, Constipation, Crohn's Disease, Diverticulitis, Diverticulosis, Esophageal Varices, Gastritis, GERD, GI Bleed, Hemorrhoids, Hiatal Hernia, Inflamatory Bowel Disease, Irritable Bowel Disease, Pancreatitis, Peptic Ulcer Disease, Other Endocrine: Yes: Diabetes Mellitus. No: [place]'s Disease, [place]'s Disease, Diabetes Insipidus, Hyperparathyroidism, Hyperthyroidism, Hypothyroidism, Osteopenia, SIADH, Other - Alcohol/Substance Use Hx Alcohol Use: No - Smoking History Smoking history: Never smoked Have you smoked in the past 12 months: No Aproximately how many cigarettes per day: 0 If you are a former smoker, when did you quit?: 2001 - Social History Usual Living Arrangement: Alone ADL: Independent History of Recent Travel: No Home Medications - Allergies Allergies/Adverse Reactions: Allergies Allergy/AdvReac Type Severity Reaction Status Date / Time ibuprofen [From Advil] Allergy Unknown Vomiting Verified 04/20/18 11:51 azithromycin [From Zithromax] AdvReac Mild Vomiting Verified 04/20/18 11:51 - Home Medications Home Medications: Ambulatory Orders Aspirin [ASA -] 81 mg PO DAILY #0 tab.chew 07/31/14 Montelukast Na [Singulair -] 10 mg PO HS tablet 10/04/16 Rosuvastatin [Crestor -] 10 mg PO DAILY 12/05/16 Furosemide [Lasix -] 20 mg PO DAILY 10/09/17 Albuterol 0.083% Nebulizer Jacki [Ventolin 0.083% Nebulizer Soln -] 1 neb NEB Q4H PRN #20 vial 10/25/17 Albuterol Sulfate Inhaler - [Ventolin HFA Inhaler -] 1 - 2 inh PO Q4H PRN #1 inhaler 10/25/17 Alfuzosin HCl [Alfuzosin HCl ER] 10 mg PO DAILY 02/02/18 Budesonide/Formeterol Fumarate [SYMBICORT 160/4.5mcg -] 1 inh PO DAILY 02/02/18 Albuterol 2.5/Ipratropium 0.5 [Duoneb -] 1 amp NEB RTID amp 05/10/18 Budesonide/Formeterol Fumarate [SYMBICORT 160/4.5mcg -] 1 puff IH DAILY inhaler 05/10/18 Prednisone See Taper PO DAILY 12 Days tablet 05/10/18 Prednisone [Deltasone] See Taper PO DAILY 12 Days tablet 05/10/18 Prednisone [Prednisone 50 MG TABLETS] See Taper PO DAILY 12 Days tablet Family Disease History - Family Disease History Family History: Denies Review of Systems - Review of Systems Constitutional: denies: No Symptoms, Chills, Diaphoresis, Fever, Lethargy, Loss of Appetite, Malaise, Night Sweats, Unintentional Wgt. Loss, Weakness, Other Eyes: denies: No Symptoms, Blind Spots, Blurred Vision, Double Vision, Eye Pain , Floaters, Photophobia, Recent Change in Vision, Other HENT: denies: No Symptoms, Difficult Swallowing, Ear Discharge, Ear Pain, Epistaxis, Gingival Bleeding, Hearing Loss, Mouth Swelling, Nasal Congestion, Ocular Prosthesis, Throat Pain, Toothache, Ringing in Ears, Other Neck: denies: No Symptoms, Decreased ROM, Lumps, Pain on Movement, Stiffness, Swollen Glands, Tenderness, Other Cardiovascular: denies: No Symptoms, Chest Pain, Edema, Palpitations, Shortness of Breath, Other Respiratory: reports: Exercise Intolerance, SOB, SOB on Exertion. denies: No Symptoms, Cough, Hemoptysis, Orthopnea, PND, Snoring, Wheezing, Other Gastrointestinal: denies: No Symptoms, Abdominal Pain, Bloating, Constipation, Diarrhea, Dysphagia, Indigestion, Melena, Nausea, Rectal Bleeding, Vomiting, Vomiting Blood, Other Genitourinary: denies: No Symptoms, Burning, Discharge, Dysuria, Flank Pain, Frequency, Hematuria, Incontinence, Lesions, Menses, Pain, Testicular Mass, Testicular Pain, Testicular Swelling, Urgency, Vaginal Bleeding, Other Breasts: denies: No Symptoms Reported, See HPI, Breast Implants, Discharge from Nipple, Lumps, Pain, Skin Changes, Other Musculoskeletal: denies: No Symptoms, Back Pain, Crepitus, Decreased ROM, Extremity Pain, Joint Pain, Joint Swelling, Muscle Pain, Muscle Cramps, Muscle Weakness, Other Integumentary: denies: No Symptoms, Blister, Bruising, Change in Color, Eczema, Erythema, Incision, Lesions, Lump, Pallor, Pruritis, Rash, Wound, Other Neurological: denies: No Symptoms, Change in LOC, Change in Speech, Confusion, Dizziness, Headache, Incoordination, Numbness, Parasthesia, Pre-Existing Deficit , Seizure, Syncope, Tremors, Unsteady Gait, Weakness, Other Endocrine: denies: No Symptoms, Excessive Sweating, Flushing, Increased Hunger, Increased Thirst, Intolerance to Cold, Intolerance to Heat, Unexplained Weight Gain, Unexplained Weight Loss, Other Hematology/Lymphatic: denies: No Symptoms, Easily Bruised, Excessive Bleeding, Swollen Glands, Other Psychiatric: denies: No Symptoms, Altered Sleep Pattern, Anxiety, Depression, Hallucinations, Panic, Paranoia, Suicidal, Other - Risk Factors Known Risk Factors: Yes: Diabetes Mellitus, Hypercholesterolemia, Hypertension Vital Signs: Vital Signs Temperature 98.2 F 05/10/18 13:46 Pulse Rate 85 05/10/18 13:46 Respiratory Rate 18 05/10/18 13:46 Blood Pressure 141/84 05/10/18 13:46 O2 Sat by Pulse Oximetry (%) 94 L 05/10/18 09:00 Constitutional: Yes: Well Nourished, No Distress, Calm Eyes: Yes: WNL, Conjunctiva Clear, EOM Intact HENT: Yes: WNL, Atraumatic, Normocephalic Neck: Yes: WNL, Supple, Trachea Midline Respiratory: Yes: Regular, Diminished, Wheezes. No: SOB Gastrointestinal: Yes: WNL, Normal Bowel Sounds Renal/: Yes: WNL Cardiovascular: Yes: Regular Rate and Rhythm. No: Bradycardia, Tachycardia, Pulse Irregular, Gallop, Rub, Varicosities JVD: No Carotid Bruit: No PMI: Non-Displaced Heart Sounds: Yes: S1, S2. No: Split S2, S3, S4, Clicks, Gallop, Rub, Bruit Murmur: No: Systolic Murmur, Diastolic Murmur Musculoskeletal: Yes: WNL Extremities: Yes: WNL Edema: No Peripheral Pulses WNL: Yes Peripheral Pulses: 2+ Left Doralis Pedis, 2+ Right Dorsalis Pedis Integumentary: Yes: WNL Neurological: Yes: Alert, Oriented Psychiatric: Yes: Alert, Oriented - Other Data Labs, Other Data: CBC, BMP 05/08/18 19:30 05/09/18 06:00 nsr 80bpm inferior and septal infarct Echo: Report Reviewed Imaging - Results Chest X-ray: Report Reviewed, Image Reviewed EKG: Report Reviewed, Image Reviewed Other: Report Reviewed, Image Reviewed (tele-nsr, sinus tach) Assessment/Plan 72 year old man with pmh HTN, DMII, COPD admitted with sob. pt treated for AE COPD and improved. Echo done today showed normal LV systolic function mild valvular abnl. Pt is being discharged. SOB-AE COPD -no signs of CHF -echo 05/10/18 was TDS. mildly dilated aortic root, nl LVEF, mild valvular abnl -no additional inpatient cardiac work up needed at this time. -[facility] outpatient cardiology fup. Please call with any additional questions.
== END 2018-05-10 16:51 | disposition home or self-care (01) ==
LOC: JER 10:09 → JERBED 14:58 → J4S 17:03
PROVIDERS: ADMIT Family Medicine; ATTEND Family Medicine
PROC: 3E03329 Introduction of Other Anti-infective into Peripheral Vein, Percutaneous Approach (ICD-10-PCS; principal; 2018-05-08)
PROC: 3E0333Z Introduction of Anti-inflammatory into Peripheral Vein, Percutaneous Approach (ICD-10-PCS; 2018-05-08)
PROC: 3E013VG Introduction of Insulin into Subcutaneous Tissue, Percutaneous Approach (ICD-10-PCS; 2018-05-08)
PROC: 3E0F7GC Introduction of Other Therapeutic Substance into Respiratory Tract, Via Natural or Artificial Opening (ICD-10-PCS; 2018-05-08)
DX: J44.1 Chronic obstructive pulmonary disease with (acute) exacerbation (principal); R06.02 Shortness of breath; I11.0 Hypertensive heart disease with heart failure; E78.5 Hyperlipidemia, unspecified; E11.9 Type 2 diabetes mellitus without complications; N40.0 Benign prostatic hyperplasia without lower urinary tract symptoms; I25.10 Atherosclerotic heart disease of native coronary artery without angina pectoris; I50.9 Heart failure, unspecified; K21.9 Gastro-esophageal reflux disease without esophagitis; R74.8 Abnormal levels of other serum enzymes; Z79.82 Long term (current) use of aspirin; Z88.1 Allergy status to other antibiotic agents; Z88.6 Allergy status to analgesic agent
CPT/HCPCS: 36415; 71045-TC-FY; 71250-TC; 80053; 82550; 82553; 82803; 82962; 83880; 84484; 85025; 85027; 87804; 87807; 93005; 93010; 93306-TC; 94640; 96361; 96365; 96366; 96367; 96372; 96375; 99285-25; G0378; J7030

== ENCOUNTER 2018-07-22 14:01 | Emergency (ER) | payer OTHER ==
[2018-07-22] MEDS ORDERED: ALBUTEROL SO4 2.5/IPRATROPIUM 0.5 INH SOL 3 ML VIAL.NEB. NEB ONE ×2 (14:27→14:33)
[2018-07-22 14:33] VITALS: TEMP 98.2; BMI 31.8
[2018-07-22] MEDS ORDERED: predniSONE 20 MG TABLET (UD) PO ONE (16:12)
--- NOTE | 2018-07-22 16:13 | PDOC ---
Attending Attestation - HPI HPI: 07/22/18 19:14 The patient is a 72 year old male, with a significant PMH of asthma,HLD, DVT, HTN, CHF, BPH, DM, and COPD who presents to the emergency department complaining of constant cough yesterday that progressively worsened this morning. The patient endorses associated symptoms of SOB, wheezing, nasal congestion, and sore throat. He states he came to ER for further evaluation and currently reports he feels better after receiving duoneb. The patient denies chest pain, headache and dizziness. Denies fever, chills, nausea, vomit, diarrhea and constipation. Denies dysuria, frequency, urgency and hematuria. Allergies: Ibuprofen, azithromycin Past surgical history: None reported Social history: Denies alcohol, tobacco and recreational drugs use. PCP: Lucila Documentation prepared by Umu Kaur, acting as senior medical writer for Aranza Choe MD. - Physicial Exam PE: 07/22/18 19:14 GENERAL: Awake, alert, and fully oriented, in no acute distress HEAD: No signs of trauma LUNGS: Breath sounds equal, clear to auscultation bilaterally. No wheezes, and no crackles HEART: Regular rate and rhythm, normal S1 and S2, no murmurs, rubs or gallops ABDOMEN: Soft, nontender, normoactive bowel sounds. No guarding, no rebound. No masses EXTREMITIES: Normal range of motion, no edema. No clubbing or cyanosis. No cords, erythema, or tenderness NEUROLOGICAL: Cranial nerves II through XII grossly intact. Normal speech. SKIN: Warm, Dry, normal turgor, no rashes or lesions noted. Documentation prepared by Umu Kaur, acting as senior medical writer for Aranza Choe MD, /DO. <Umu Kaur - Last Filed: 07/22/18 19:16> - Medical Decision Making 07/22/18 21:34 Pt presents to the ED complaining of wheezing and shortness of breath consistent with prior COPD exacerbations. Resolved with duonebs in the ED. Labs are within normal limits, CXR shows no evidence of PNA. Will discharge home with albuterol, prednisone and follow up with PMD <Aranza Choe - Last Filed: 07/22/18 21:40>
[2018-07-22] MEDS ORDERED: predniSONE 20 MG TABLET (UD) ONE (16:19)
[2018-07-22 17:09] LABS: BASO % 0.7 % (0-2.0); EOS % 16.5 % (0-4.5); HEMATOCRIT 41.6 % (35.4-49); HEMOGLOBIN 14.5 GM/dL (11.7-16.9); MCH 30.8 pg (25.7-33.7); MCHC 34.7 g/dl (32.0-35.9); MEAN CELL VOLUME 88.7 fl (80-96); MEAN PLT VOLUME 8.5 fl (7.5-11.1); MONO % 8.4 % (3.8-10.2); NEUT % 47.4 % (42.8-82.8); PLATELET COUNT 287 K/MM3 (134-434); RBC 4.69 M/mm3 (4.00-5.60); RDW 13.8 % (11.9-15.9); WHITE BLOOD COUNT 9.4 K/mm3 (4.0-10.0)
--- NOTE | 2018-07-22 17:30 | PDOC ---
History of Present Illness - General Chief Complaint: Respiratory Stated Complaint: COPD Time Seen by Provider: 07/22/18 16:01 History Source: Patient Exam Limitations: No Limitations - History of Present Illness Initial Comments: 07/22/18 17:25 Patient is a 72M with history of HTN, HLD, COPD, DM, BPH, CHF coming in with one day of shortness of breath. Patient endorses associated rhinorrhea, watery eyes, and increased cough. Denies fevers, chills, nausea, vomiting. Denies chest pain. Denies leg swelling, history of blood clots. Tried inhaler at home without improvement. Patient received duoneb from EMS, which he states improved his symptoms. Patient is asking to go home, states that he feels fine. PCP: rose Gaytan pulm Past History - Past Medical History Allergies/Adverse Reactions: Allergies Allergy/AdvReac Type Severity Reaction Status Date / Time ibuprofen [From Advil] Allergy Unknown Vomiting Verified 04/20/18 11:51 azithromycin [From Zithromax] AdvReac Mild Vomiting Verified 04/20/18 11:51 Home Medications: Ambulatory Orders Aspirin [ASA -] 81 mg PO DAILY #0 tab.chew 07/31/14 Montelukast Na [Singulair -] 10 mg PO HS tablet 10/04/16 Rosuvastatin [Crestor -] 10 mg PO DAILY 12/05/16 Furosemide [Lasix -] 20 mg PO DAILY 10/09/17 Albuterol 0.083% Nebulizer Jacki [Ventolin 0.083% Nebulizer Soln -] 1 neb NEB Q4H PRN #20 vial 10/25/17 Albuterol Sulfate Inhaler - [Ventolin HFA Inhaler -] 1 - 2 inh PO Q4H PRN #1 inhaler 10/25/17 Alfuzosin HCl [Alfuzosin HCl ER] 10 mg PO DAILY 02/02/18 Budesonide/Formeterol Fumarate [SYMBICORT 160/4.5mcg -] 1 inh PO DAILY 02/02/18 Albuterol 2.5/Ipratropium 0.5 [Duoneb -] 1 amp NEB RTID amp 05/10/18 Prednisone [Prednisone 50 MG TABLETS] 50 mg PO DAILY #3 tablet 07/22/18 Anemia: No Asthma: Yes Cardiac Disorders: Yes (CHF) CVA: No COPD: Yes CHF: Yes DVT: Yes Dementia: No Diabetes: Yes (NO MED - RELATED PREDISONE) GI Disorders: Yes (GERD, COLON POLYP) Disorders: Yes (ENLARGED PROSTATE) HTN: Yes Hypercholesterolemia: Yes Liver Disease: No Seizures: No Thyroid Disease: No - Surgical History Abdominal Surgery: No Appendectomy: No Cardiac Surgery: No Cholecystectomy: No Lung Surgery: No Neurologic Surgery: No Orthopedic Surgery: No - Immunization History Immunization Up to Date: Yes - Suicide/Smoking/Psychosocial Hx Smoking Status: No Smoking History: Former smoker Have you smoked in the past 12 months: No Number of Cigarettes Smoked Daily: 0 If you are a former smoker, when did you quit?: 2001 Information on smoking cessation initiated: No 'Breaking Loose' booklet given: 01/08/12 Hx Alcohol Use: No Drug/Substance Use Hx: No Substance Use Type: None Hx Substance Use Treatment: No Review of Systems - Review of Systems Comments:: 07/22/18 17:30 GENERAL/CONSTITUTIONAL: No fever or chills. No weakness. HEAD, EYES, EARS, NOSE AND THROAT: No change in vision. No sore throat. CARDIOVASCULAR: No chest pain +shortness of breath RESPIRATORY: +cough, +wheezing, no hemoptysis. GASTROINTESTINAL: No nausea, vomiting, diarrhea or constipation. GENITOURINARY: No dysuria, frequency, or change in urination. MUSCULOSKELETAL: No joint or muscle swelling or pain. No neck or back pain. SKIN: No rash NEUROLOGIC: No headache, vertigo, loss of consciousness, or change in strength/ sensation. ENDOCRINE: No increased thirst. No abnormal weight change HEMATOLOGIC/LYMPHATIC: No anemia, easy bleeding, or history of blood clots. ALLERGIC/IMMUNOLOGIC: No hives or skin allergy. *Physical Exam - Vital Signs Last Vital Signs Temp Pulse Resp BP Pulse Ox 98.2 F 67 20 164/80 98 07/22/18 14:26 07/22/18 14:26 07/22/18 14:26 07/22/18 14:26 07/22/18 15:00 - Physical Exam Comments: 07/22/18 17:31 GENERAL: Awake, alert, and fully oriented, in no acute distress HEAD: No signs of trauma, normocephalic, atraumatic EYES: PERRLA, EOMI, sclera anicteric, conjunctiva clear ENT: Auricles normal inspection, hearing grossly normal, nares patent, oropharynx clear without exudates. Moist mucosa NECK: Normal ROM, supple, no lymphadenopathy, JVD, or masses LUNGS: No distress, speaks full sentences, scattered scant wheezes HEART: Regular rate and rhythm, normal S1 and S2, no murmurs, rubs or gallops, peripheral pulses normal and equal bilaterally. ABDOMEN: Soft, nontender, normoactive bowel sounds. No guarding, no rebound. No masses EXTREMITIES: Normal inspection, Normal range of motion, no edema. No clubbing or cyanosis. NEUROLOGICAL: Cranial nerves II through XII grossly intact. Normal speech, normal gait, no focal sensorimotor deficits SKIN: Warm, Dry, normal turgor, no rashes or lesions noted. Moderate Sedation - Procedure Monitoring Vital Signs: Procedure Monitoring Vital Signs Temperature 98.2 F 07/22/18 14:26 Pulse Rate 67 07/22/18 14:26 Respiratory Rate 20 07/22/18 14:26 Blood Pressure 164/80 07/22/18 14:26 O2 Sat by Pulse Oximetry (%) 98 07/22/18 15:00 ED Treatment Course - LABORATORY CBC & Chemistry Diagram: 07/22/18 17:02 07/22/18 17:02 - ADDITIONAL ORDERS Additional order review: 07/22/18 17:02 RBC 4.69 MCV 88.7 MCHC 34.7 RDW 13.8 MPV 8.5 Neutrophils % 47.4 D Lymphocytes % 27.0 D Monocytes % 8.4 Eosinophils % 16.5 H Basophils % 0.7 - RADIOLOGY Radiology Studies Ordered: Category Date Time Status CHEST PA & LAT [RAD] Stat Radiology 07/22/18 16:12 Taken - Medications Given in the ED: ED Medications Discontinued Medications Generic Name Dose Route Start Last Admin Trade Name Freq PRN Reason Stop Dose Admin Albuterol/Ipratropium 2 amp 07/22/18 14:33 07/22/18 14:33 Duoneb - NEB 07/22/18 14:34 2 amp NOW ONE Administration Prednisone 60 mg 07/22/18 16:12 07/22/18 16:21 Deltasone - PO 07/22/18 16:13 60 mg ONCE ONE Administration Medical Decision Making - Medical Decision Making 07/22/18 17:39 Patient is a 72M with history of HTN, HLD, COPD, DM, BPH, CHF here today with shortness of breath. Vitals normal and stable. DDx includes, but is not limited to: copd exacerbation, pneumonia, bronchitis. Will evaluate with basic labs, cxr. Patient has very few wheezes on exam after initial duoneb. Will treat with steroids. 07/22/18 18:16 EKG shows normal sinus rhythm with rate of 72. No st elevations/depressions. Normal axis. Normal intervals. No significant t wave abnormalities. CBC, CMP reassuring. Trop normal. CXR shows chronic changes, no infiltrate. Patient continues to feel better. Will discharge home with burst of steroids. Instructed to follow up with PCP Tuesday. Given strict return precautions. *DC/Admit/Observation/Transfer Diagnosis at time of Disposition: COPD exacerbation - Discharge Dispostion Disposition: HOME Condition at time of disposition: Good Decision to Admit order: No - Referrals Referrals: David Gaytan MD [Primary Care Provider] - - Patient Instructions Printed Discharge Instructions: DI for Chronic Obstructive Pulmonary Disease Additional Instructions: Please follow up with your primary care doctor Tuesday. Please return if you have any new, worsening or concerning symptoms, especially fever, shortness of breath and chest pain. - Post Discharge Activity
[2018-07-22 17:37] LABS: INR 1.2 (0.83-1.09); PROTHROMBIN TIME (PATIENT) 14.2 SEC (9.7-13.0)
[2018-07-22 18:10] LABS: ALBUMIN 3.7 g/dl (3.4-5.0); ALK PHOS 77 U/L (45-117); ANION GAP 6 MMOL/L (8-16); BILIRUBIN,TOTAL 0.5 mg/dL (0.2-1); BLOOD UREA NITROGEN 12 mg/dL (7-18); CALCIUM 9.4 mg/dL (8.5-10.1); CHLORIDE 109 mmol/L (98-107); CO2 28 mmol/L (21-32); CREATININE 0.9 mg/dL (0.55-1.3); GLUCOSE,RANDOM 86 mg/dL (74-106); POTASSIUM 4.1 mmol/L (3.5-5.1); SGOT/AST 21 U/L (15-37); SGPT/ALT 30 U/L (13-61); SODIUM 143 mmol/L (136-145); TOT PROT 7.2 g/dl (6.4-8.2)
[2018-07-22 18:20] VITALS: BP 159/83; PULSE 69
--- NOTE | 2018-07-23 11:51 | EKG ---
Test Reason : Blood Pressure : / mmHG Vent. Rate : 072 BPM Atrial Rate : 072 BPM P-R Int : 174 ms QRS Dur : 108 ms QT Int : 418 ms P-R-T Axes : 048 -02 023 degrees QTc Int : 457 ms SINUS RHYTHM WITH PREMATURE SUPRAVENTRICULAR COMPLEXES OTHERWISE NORMAL ECG WHEN COMPARED WITH ECG OF 08-MAY-2018 11:11, PREMATURE SUPRAVENTRICULAR COMPLEXES ARE NOW PRESENT CRITERIA FOR INFERIOR INFARCT ARE NO LONGER PRESENT ST NO LONGER DEPRESSED IN LATERAL LEADS NONSPECIFIC T WAVE ABNORMALITY HAS REPLACED INVERTED T WAVES IN INFERIOR LEADS Confirmed by HELDER MYERS, LIZ ([id number]) on 07/23/2018 11:50:41 AM Referred By: Confirmed By:LIZ PENDLETON MD
== END 2018-07-22 18:21 | disposition home or self-care (01) ==
LOC: JER 14:01
PROC: 3E0F7GC Introduction of Other Therapeutic Substance into Respiratory Tract, Via Natural or Artificial Opening (ICD-10-PCS; principal; 2018-07-22)
DX: J44.1 Chronic obstructive pulmonary disease with (acute) exacerbation (principal); I11.0 Hypertensive heart disease with heart failure; I50.9 Heart failure, unspecified; E78.5 Hyperlipidemia, unspecified; N40.0 Benign prostatic hyperplasia without lower urinary tract symptoms; E09.9 Drug or chemical induced diabetes mellitus without complications; T38.0X5A Adverse effect of glucocorticoids and synthetic analogues, initial encounter; Y92.038 Other place in apartment as the place of occurrence of the external cause
CPT/HCPCS: 36415; 71046-TC-FY; 80053; 82550; 82553; 83735; 84484; 85025; 85610; 93005; 93010; 94640; 99283-25

== ENCOUNTER 2018-08-12 12:47 | Emergency (ER) | payer OTHER ==
[2018-08-12 12:57] VITALS: BP 125/102; PULSE 82; TEMP 97.7; BMI 31.8
--- NOTE | 2018-08-12 13:13 | PDOC ---
Attending Attestation - HPI HPI: This patient is a 72 year old male with PMHx of HTN HLD, COPD DM, BPH, CHF, who presents with shortness of breath. Patient states that since yesterday hes been feeling more short of breath that usual. He took his symbicort and albuterol but still does not feel better. He states that he takes 10 mg steroids daily also takes lasiks. He states that due to an insurance issue he hasn't been taking his blood pressure medication but has taken all his other meds. Patient states that he has been able to lie flat at night. No fever,chills, cough, or recent sick contacts. Denies weight gain, calf tenderness. Social Hx: Does not smoke. - Physicial Exam PE: GENERAL: Awake, alert, and fully oriented, in no acute distress HEAD: No signs of trauma EYES: PERRLA, EOMI, sclera anicteric, conjunctiva clear ENT: Auricles normal inspection, hearing grossly normal, nares patent, oropharynx clear without exudates. Moist mucosa NECK: Normal ROM, supple, no lymphadenopathy, JVD, or masses LUNGS: Breath sounds equal, clear to auscultation bilaterally. No wheezes, and no crackles HEART: Regular rate and rhythm, normal S1 and S2, no murmurs, rubs or gallops ABDOMEN: Soft, nontender, normoactive bowel sounds. No guarding, no rebound. No masses EXTREMITIES: Normal range of motion,trace pitting edema. No clubbing or cyanosis. No cords, erythema, or tenderness NEUROLOGICAL: Cranial nerves II through XII grossly intact. Normal speech, normal gait SKIN: Warm, Dry, normal turgor, no rashes or lesions noted. <Sirisha Latham - Last Filed: 08/12/18 14:28> - Resident Resident Name: Charo Alarcon - ED Attending Attestation I have performed the following: I have examined & evaluated the patient, The case was reviewed & discussed with the resident, I agree w/resident's findings & plan, Exceptions are as noted - Medical Decision Making 08/12/18 13:13 I, Dr. Gabi Roberts, DO, attest that this document has been prepared under my direction and personally reviewed by me in its entirety. I further attest, that it accurately reflects all work, treatment, procedures and medical decision -making performed by me. 08/12/18 15:28 A/P: 72yo male with increasing sob -has been taking his lasix daily -states used his inhalers at home with relief -states he woke up this AM sob-currently denies sob -no PND, no orthopnea -no cp -pt ambulates with a steady gait -no resp distress, no sob -physical exam is benign -will send labs, ekg, cxr 08/12/18 15:30 pt feeling better after neb vss stable for dc to home 08/12/18 15:31 cxr clear labs reviewed bnp 40 suspect very mild copd exacerbation <Gabi Roberts - Last Filed: 08/12/18 15:31> Heart Score/ECG Review - ECG Intrepretation Comment:: 08/12/18 15:31 sinus at 82, nl axis, nl interval, no acute st/t wave findings <Gabi Roberts - Last Filed: 08/12/18 15:31> Attestations - Attestations 08/12/18 14:31 Documentation prepared by Sirisha Latham, acting as medical laboratory manager for Gabi Roberts DO. <Sirisha Latham - Last Filed: 08/12/18 14:28>
--- NOTE | 2018-08-12 13:26 | PDOC ---
History of Present Illness - General Chief Complaint: Respiratory Stated Complaint: DIFFICULTY BREATHING Time Seen by Provider: 08/12/18 12:56 History Source: Patient Exam Limitations: No Limitations - History of Present Illness Initial Comments: 08/12/18 13:20 Patient is a 72 y/o male with a history of HTN, HLD, COPD, DM, BPH & CHF ( on lasix 20) who presents for increased shortness of breath. Patient states he was feeling a little short of breath yesterday. He tried his inhalers but they have not been helpful. Patient follows with Dr. Barahona as his slip mixer. Patient reports he is still able to walk his typical amount. He does not feel like has gained weight or has any extra fluid on him . Patient has been having trouble with his insurance and has not been taking his HTN medications. He reports he has been using his inhalers and his steroids. Patient denies fever, chills, cough, chest pain, nausea, and vomiting. Past History - Past Medical History Allergies/Adverse Reactions: Allergies Allergy/AdvReac Type Severity Reaction Status Date / Time ibuprofen [From Advil] Allergy Unknown Vomiting Verified 08/12/18 12:54 azithromycin [From Zithromax] AdvReac Mild Vomiting Verified 08/12/18 12:54 Home Medications: Ambulatory Orders Aspirin [ASA -] 81 mg PO DAILY #0 tab.chew 07/31/14 Rosuvastatin [Crestor -] 10 mg PO DAILY 12/05/16 Furosemide [Lasix -] 20 mg PO DAILY 10/09/17 Albuterol 0.083% Nebulizer Jacki [Ventolin 0.083% Nebulizer Soln -] 1 neb NEB Q4H PRN #20 vial 10/25/17 Albuterol Sulfate Inhaler - [Ventolin HFA Inhaler -] 1 - 2 inh PO Q4H PRN #1 inhaler 10/25/17 Alfuzosin HCl [Alfuzosin HCl ER] 10 mg PO DAILY 02/02/18 Budesonide/Formeterol Fumarate [SYMBICORT 160/4.5mcg -] 1 inh PO DAILY 02/02/18 Albuterol 2.5/Ipratropium 0.5 [Duoneb -] 1 amp NEB RTID amp 05/10/18 Furosemide 20 mg PO DAILY #15 tablet 08/12/18 Methylprednisolone [Medrol Dose Harrison] 4 mg PO ASDIR #21 tablet 08/12/18 Montelukast Na [Singulair -] 10 mg PO HS #15 tablet 08/12/18 Ranitidine [Zantac -] 150 mg PO DAILY #15 tablet 08/12/18 Anemia: No Asthma: Yes Cardiac Disorders: Yes (CHF) CVA: No COPD: Yes CHF: Yes DVT: Yes Dementia: No Diabetes: Yes (NO MED - RELATED PREDISONE) GI Disorders: Yes (GERD, COLON POLYP) Disorders: Yes (ENLARGED PROSTATE) HTN: Yes Hypercholesterolemia: Yes Liver Disease: No Seizures: No Thyroid Disease: No - Surgical History Abdominal Surgery: No Appendectomy: No Cardiac Surgery: No Cholecystectomy: No Lung Surgery: No Neurologic Surgery: No Orthopedic Surgery: No - Immunization History Immunization Up to Date: Yes - Suicide/Smoking/Psychosocial Hx Smoking Status: No Smoking History: Former smoker Have you smoked in the past 12 months: No Number of Cigarettes Smoked Daily: 0 If you are a former smoker, when did you quit?: 2001 Information on smoking cessation initiated: No 'Breaking Loose' booklet given: 01/08/12 Hx Alcohol Use: No Drug/Substance Use Hx: No Substance Use Type: None Hx Substance Use Treatment: No Review of Systems - Review of Systems Constitutional: No: Chills, Fever Respiratory: Yes: Shortness of Breath. No: Cough, Orthopnea, Wheezing Cardiac (ROS): Yes: Edema. No: Chest Pain ABD/GI: No: Abdominal Distended, Diarrhea, Nausea, Vomiting : No: Dysuria Musculoskeletal: No: Gout *Physical Exam - Vital Signs Last Vital Signs Temp Pulse Resp BP Pulse Ox 97.7 F 82 18 125/102 H 99 08/12/18 12:56 08/12/18 12:56 08/12/18 12:56 08/12/18 12:56 08/12/18 12:56 - Physical Exam Comments: 08/12/18 13:27 GENERAL : A&O x3, no acute distress HEENT: EOMI HEART: RRR, no murmurs, rubs, or gallops LUNGS: no wheezing, crackles, or rhonci heard, diminished breath sounds ABDOMEN: soft, nontender, non distended EXTREMITIES: 1+ pitting edema SKIN: no rashes or ulcers visualized ED Treatment Course - LABORATORY CBC & Chemistry Diagram: 08/12/18 13:21 08/12/18 14:40 Medical Decision Making - Medical Decision Making 08/12/18 15:48 Patients symptoms improved with albuterol treatment labs WNL vitals stable O2> 98 % EKG WNL DC home and discussed follow ups *DC/Admit/Observation/Transfer Diagnosis at time of Disposition: COPD exacerbation - Discharge Dispostion Disposition: HOME Condition at time of disposition: Good Decision to Admit order: No - Prescriptions Prescriptions: Furosemide 20 mg PO DAILY #15 tablet Methylprednisolone [Medrol Dose Harrison] 4 mg PO ASDIR #21 tablet Montelukast Na [Singulair -] 10 mg PO HS #15 tablet Ranitidine [Zantac -] 150 mg PO DAILY #15 tablet - Referrals Referrals: Juan Barahona MD [Staff Physician] - - Patient Instructions Additional Instructions: You came to the hospital for shortness of breath. This is likely due to your COPD. While you were here we gave you steroids and albuterol. To continue treatment of your COPD please take Medrol harrison every day by mouth, follow the instructions as stated on the pack Continue to use your symbicort inhaler everyday and your albuterol inhaler as needed Please continue to take your lasix for your CHF. Please make an appointment with Dr. Barahona and follow up with him within one week. Please make an appointment with your primary care physician within one week. Return to the Emergency Department if you have cough, fever, chills, nausea, vomiting, or chest pain. - Post Discharge Activity
[2018-08-12 14:01] LABS: VENOUS PC02 51.6 mmHg (41-51); VENOUS PH 7.34 (7.31-7.41); VENOUS PO2 41.5 mmHg (30-40)
[2018-08-12 14:03] LABS: BASO % 0.7 % (0-2.0); EOS % 6.3 % (0-4.5); HEMATOCRIT 45.7 % (35.4-49); HEMOGLOBIN 15.2 GM/dL (11.7-16.9); LYMPH % 17.7 % (8-40); MCH 29.2 pg (25.7-33.7); MCHC 33.3 g/dl (32.0-35.9); MEAN CELL VOLUME 87.6 fl (80-96); MEAN PLT VOLUME 9.3 fl (7.5-11.1); MONO % 6.7 % (3.8-10.2); NEUT % 68.6 % (42.8-82.8); PLATELET COUNT 261 K/MM3 (134-434); RBC 5.21 M/mm3 (4.00-5.60); RDW 14.2 % (11.9-15.9); WHITE BLOOD COUNT 9.3 K/mm3 (4.0-10.0)
[2018-08-12] MEDS ORDERED: predniSONE 20 MG TABLET (UD) PO ONE (14:11)
[2018-08-12] MEDS ORDERED: ALBUTEROL SO4 2.5/IPRATROPIUM 0.5 INH SOL 3 ML VIAL.NEB. NEB ONE ×2 (14:11→14:31)
[2018-08-12] MEDS ORDERED: predniSONE 20 MG TABLET (UD) ONE (14:31)
[2018-08-12 15:05] LABS: ALBUMIN 3.6 g/dl (3.4-5.0); ALK PHOS 73 U/L (45-117); ANION GAP 5 MMOL/L (8-16); BILIRUBIN,TOTAL 0.5 mg/dL (0.2-1); BLOOD UREA NITROGEN 16 mg/dL (7-18); CALCIUM 9.4 mg/dL (8.5-10.1); CHLORIDE 105 mmol/L (98-107); CO2 27 mmol/L (21-32); CREATININE 0.9 mg/dL (0.55-1.3); GLUCOSE,RANDOM 117 mg/dL (74-106); POTASSIUM 4.3 mmol/L (3.5-5.1); SGOT/AST 20 U/L (15-37); SGPT/ALT 32 U/L (13-61); SODIUM 137 mmol/L (136-145); TOT PROT 7.2 g/dl (6.4-8.2)
[2018-08-12 15:20] LABS: N-TERMINAL BNP 40.1 pg/ml (5-125)
--- NOTE | 2018-08-14 10:20 | EKG ---
Test Reason : Blood Pressure : / mmHG Vent. Rate : 082 BPM Atrial Rate : 082 BPM P-R Int : 164 ms QRS Dur : 104 ms QT Int : 378 ms P-R-T Axes : 056 013 057 degrees QTc Int : 441 ms NORMAL SINUS RHYTHM NORMAL ECG WHEN COMPARED WITH ECG OF 22-JUL-2018 17:50, PREMATURE SUPRAVENTRICULAR COMPLEXES ARE NO LONGER PRESENT Confirmed by JUANA ESCOBAR MD ([id number]) on 08/14/2018 10:20:00 AM Referred By: Confirmed By:JUANA ESCOBAR MD
== END 2018-08-12 16:44 | disposition home or self-care (01) ==
LOC: JER 12:47
PROC: 3E0F7GC Introduction of Other Therapeutic Substance into Respiratory Tract, Via Natural or Artificial Opening (ICD-10-PCS; principal; 2018-08-12)
DX: J44.1 Chronic obstructive pulmonary disease with (acute) exacerbation (principal); I11.0 Hypertensive heart disease with heart failure; I50.9 Heart failure, unspecified; E78.5 Hyperlipidemia, unspecified; N40.0 Benign prostatic hyperplasia without lower urinary tract symptoms; E09.9 Drug or chemical induced diabetes mellitus without complications; T38.0X5A Adverse effect of glucocorticoids and synthetic analogues, initial encounter; Y92.038 Other place in apartment as the place of occurrence of the external cause
CPT/HCPCS: 36415; 71046-TC-FY; 80053; 82803; 83880; 84484; 85025; 93005; 93010; 94640; 99283-25

== ENCOUNTER 2018-12-25 13:15 | Emergency (ER) | payer OTHER ==
[2018-12-25] MEDS ORDERED: ALBUTEROL SO4 2.5/IPRATROPIUM 0.5 INH SOL 3 ML VIAL.NEB. NEB ONE ×2 (13:18→13:25)
[2018-12-25 13:25] VITALS: BP 155/74; PULSE 89; TEMP 98.5; BMI 31.9
--- NOTE | 2018-12-25 15:18 | PDOC ---
History of Present Illness - General Chief Complaint: Shortness of Breath Stated Complaint: shortness of breath Time Seen by Provider: 12/25/18 15:51 History Source: Patient Exam Limitations: No Limitations - History of Present Illness Initial Comments: 12/25/18 15:51 73M w/ pmh of HTN, HLD, DM, HF(normal EF, Apr 2018), asthma, COPD presents w/ complaint of SOB, chest tightness for the past 2days. States that it was bad enough last night to try his home albuterol nebulizer x3. Was able to sleep through the night. Decided to come to the ED due to persistence of symptoms today. Also, has had weeks of itchy eyes, and a few days of rhinorrhea. Has a sick son at home, has rhinorrhea. In the ED, SOB + chest tightness has improved after albuterol double dose. Endorses fast HR afterwards. Past History - Travel Traveled outside of the country in the last 30 days: No Close contact w/someone who was outside of country & ill: No - Past Medical History Allergies/Adverse Reactions: Allergies Allergy/AdvReac Type Severity Reaction Status Date / Time ibuprofen [From Advil] Allergy Unknown Vomiting Verified 08/12/18 12:54 azithromycin [From Zithromax] AdvReac Mild Vomiting Verified 08/12/18 12:54 Home Medications: Ambulatory Orders Aspirin [ASA -] 81 mg PO DAILY #0 tab.chew 07/31/14 Rosuvastatin [Crestor -] 10 mg PO DAILY 12/05/16 Furosemide [Lasix -] 20 mg PO DAILY 10/09/17 Albuterol 0.083% Nebulizer Jacki [Ventolin 0.083% Nebulizer Soln -] 1 neb NEB Q4H PRN #20 vial 10/25/17 Albuterol Sulfate Inhaler - [Ventolin HFA Inhaler -] 1 - 2 inh PO Q4H PRN #1 inhaler 10/25/17 Alfuzosin HCl [Alfuzosin HCl ER] 10 mg PO DAILY 02/02/18 Budesonide/Formeterol Fumarate [SYMBICORT 160/4.5mcg -] 1 inh PO DAILY 02/02/18 Albuterol 2.5/Ipratropium 0.5 [Duoneb -] 1 amp NEB RTID amp 05/10/18 Montelukast Na [Singulair -] 10 mg PO HS #15 tablet 08/12/18 Ranitidine [Zantac -] 150 mg PO DAILY #15 tablet 08/12/18 Bicalutamide [Casodex] 50 mg PO DAILY 12/25/18 Anemia: No Asthma: Yes Cardiac Disorders: Yes (CHF) CVA: No COPD: Yes CHF: Yes DVT: Yes Dementia: No Diabetes: Yes (NO MED - RELATED PREDISONE) GI Disorders: Yes (GERD, COLON POLYP) Disorders: Yes (ENLARGED PROSTATE) HTN: Yes Hypercholesterolemia: Yes Liver Disease: No Seizures: No Thyroid Disease: No - Surgical History Abdominal Surgery: No Appendectomy: No Cardiac Surgery: No Cholecystectomy: No Lung Surgery: No Neurologic Surgery: No Orthopedic Surgery: No - Family Disease History Family Disease History: Heart Disease: Father ([place]), Other: Brother (lung Ca), Sister (stomach Ca) - Immunization History Immunization Up to Date: Yes - Suicide/Smoking/Psychosocial Hx Smoking Status: No Smoking History: Former smoker (smoked for 20ys, quit 30ys prior) Have you smoked in the past 12 months: No Number of Cigarettes Smoked Daily: 0 If you are a former smoker, when did you quit?: 2001 'Breaking Loose' booklet given: 01/08/12 Hx Alcohol Use: No Drug/Substance Use Hx: No Substance Use Type: None Hx Substance Use Treatment: No Review of Systems - Review of Systems Able to Perform ROS?: Yes Is the patient limited Swedish proficient: No Constitutional: No: Chills, Diaphoresis, Fever, Weakness HEENTM: No: Blurred Vision, Double Vision, Cataracts, Throat Pain, Difficulty Swallowing Respiratory: Yes: Cough (nonproductive). No: Orthopnea Cardiac (ROS): Yes: Chest Tightness. No: Chest Pain, Palpitations ABD/GI: No: Abdominal Distended, Constipated, Diarrhea, Nausea, Vomiting : No: Burning, Dysuria Musculoskeletal: No: Back Pain Neurological: No: Headache, Dizziness *Physical Exam - Vital Signs Last Vital Signs Temp Pulse Resp BP Pulse Ox 98.5 F 89 26 H 155/74 97 12/25/18 13:23 12/25/18 13:23 12/25/18 13:23 12/25/18 13:23 12/25/18 13:23 - Physical Exam General Appearance: Yes: Nourished. No: Apparent Distress HEENT: positive: Pale Conjunctivae, Other (speaks in full sentences w/o SOB). negative: Scleral Icterus (R), Scleral Icterus (L), Rhinorrhea Neck: positive: Trachea midline. negative: Lymphadenopathy (R), Lymphadenopathy (L) Respiratory/Chest: positive: Lungs Clear, Wheezing (mild end-expiratory wheezes at bases b/l). negative: Respiratory Distress, Labored Respiration, Rapid RR Cardiovascular: positive: Regular Rate, S1, S2 Gastrointestinal/Abdominal: positive: Soft. negative: Guarding, Rebound, Hernia , Mass Extremity: positive: Normal Inspection Integumentary: positive: Dry, Warm Neurologic: positive: Fully Oriented, Alert, Motor Strength 09/17 ED Treatment Course - Medications Given in the ED: ED Medications Discontinued Medications Generic Name Dose Route Start Last Admin Trade Name Freq PRN Reason Stop Dose Admin Albuterol/Ipratropium 2 amp 12/25/18 13:25 12/25/18 13:25 Duoneb - NEB 12/25/18 13:26 2 amp NOW ONE Administration Medical Decision Making - Medical Decision Making 12/25/18 16:06 - subjective improvement after albuterol x2amps - no labs needed - prednisone 50mg x1 prior to discharge - will d/c home with prednisone 40mg QD x4day *DC/Admit/Observation/Transfer Diagnosis at time of Disposition: Asthma attack Qualifiers: Asthma severity: mild Asthma persistence: intermittent Qualified Code(s): J45.21 - Mild intermittent asthma with (acute) exacerbation Asthma Qualifiers: Asthma severity: severe Asthma persistence: unspecified Asthma complication type: unspecified Qualified Code(s): J45.909 - Unspecified asthma, uncomplicated - Discharge Dispostion Disposition: HOME Condition at time of disposition: Stable Decision to Admit order: No - Referrals - Patient Instructions Printed Discharge Instructions: DI for Asthma -- Adult Additional Instructions: You were evaluated for Shortness of Breath with Chest Tightness. Likely it was an asthma exacerbation. Your condition improved after getting nebulized albuterol(double dose). Please continue with your twice/day Symbicort. In addition, we have prescribed prednisone 40mg to be taken daily for 4days. Please arrange to see your regular PCP. Please return to the ED or seek immediate healthcare evaluation if you experience: - shortness of breath where you cannot get relief after two pumps of albuterol - confusion and dizziness - Post Discharge Activity
--- NOTE | 2018-12-25 16:05 | PDOC ---
Documentation entered by Jeniffer Mott SCRIBE, acting as scribe for Julio Carcamo MD. Julio Carcamo MD: This documentation has been prepared by the Tiera tan Brenda, SCRIBE, under my direction and personally reviewed by me in its entirety. I confirm that the documentation accurately reflects all work, treatment, procedures, and medical decision making performed by me. Attending Attestation - Resident Resident Name: Jose Roberto Saab - ED Attending Attestation I have performed the following: I have examined & evaluated the patient, The case was reviewed & discussed with the resident, I agree w/resident's findings & plan, Exceptions are as noted - HPI HPI: 12/25/18 16:24 The patient is a 73 year old male, with a significant PMH of HTN, HLD, DM, HF( normal EF, Apr 2018), asthma, COPD, who presents to the emergency department with 2 days of shortness of breath and chest tightness. Patient reports usually not taking hsi albuterol, but had to take it last night due to severity, easing him into sleep. As per patient, upon waking up this morning, the symptoms persisted, promoting his arrival to the ED. He also notes, experiencing weeks of itchy eyes and a few days of rinonera, stating that he has a sick son at home. The patient denies headache and dizziness. Denies fever, chills, nausea, vomiting, diarrhea and constipation. Denies any urinary symptoms. Allergies: NKA Past surgical history: Social history: Former smoker, quit 2001. PCP: Demarcus Gaytan - Physicial Exam PE: 12/25/18 16:24 Vitals: Triage vital signs reviewed General Appearance: No acute distress, well nourished, well developed Head: Atraumatic Neck: Supple; No nuchal rigidity Chest Wall: Nontender Cardiac: Regular rate and rhythm, no murmurs, no rubs, no gallops Lungs: (+) Mild expiratory wheezes. Extremities: Full range of motion to all extremities, no cyanosis, clubbing, or edema Skin: Warm and dry, no rashes or lesions, no rash, no petechiae Neuro: AOX3; Cranial Nerves 2-12 grossly intact, Strength intact to all extremities, Sensation intact to all extremities. Psych: Normal mood, normal affect - Medical Decision Making 12/25/18 16:06 73 years old past medical history syncope for hypertension hyperlipidemia diabetes heart failure status asthma COPD presents to the ED with mild URI symptoms positive sick family member at home mild wheezing and tightness but no chest pain. Tried his albuterol at home with no relief today received 2 nebulizer treatments via EMS upon arrival to the emergency department patient's symptoms had completely resolved On my physical exam there was very mild end expiratory wheezing patient states he feels much better feels comfortable returning home offered patient blood work but states this feels like a typical asthma exacerbation secondary to URI and feels comfortable returning home at this time We'll discharge home which short course of prednisone he will follow up with his primary care provider he will return to the emergency department immediately for any chest pain worsening shortness of breath or for any concerns. Findings, the need for follow-up and strict return instructions discussed with patient.
[2018-12-25] MEDS ORDERED: predniSONE 20 MG TABLET (UD) PO ONE (16:07)
[2018-12-25] MEDS ORDERED: predniSONE 20 MG TABLET (UD) ONE (16:17)
== END 2018-12-25 16:25 | disposition home or self-care (01) ==
LOC: JER 13:15
PROC: 3E0F7GC Introduction of Other Therapeutic Substance into Respiratory Tract, Via Natural or Artificial Opening (ICD-10-PCS; principal; 2018-12-25)
DX: J45.21 Mild intermittent asthma with (acute) exacerbation (principal); J45.909 Unspecified asthma, uncomplicated; Z87.891 Personal history of nicotine dependence; I10 Essential (primary) hypertension; E78.00 Pure hypercholesterolemia, unspecified; I25.10 Atherosclerotic heart disease of native coronary artery without angina pectoris; E11.9 Type 2 diabetes mellitus without complications; Z86.718 Personal history of other venous thrombosis and embolism
CPT/HCPCS: 99282-25

== ENCOUNTER 2019-02-12 12:11 | Inpatient (IN) | payer OTHER ==
--- NOTE | 2019-02-12 12:43 | PDOC ---
History of Present Illness - General Stated Complaint: BLOOD IN THE URINE - History of Present Illness Initial Comments: The pt is a 73M w/ a history of COPD, CHF, DM, HTN, and a recent Dx Of prostate cancer (06/2018) on bicalutamide who presents for evaluation of 2 days of hematuria. The pt reports that he first noted red-tinged urine yesterday that has worsened today. He denies felicia blood from his meatus, trauma, dysuria, or previous episodes of hematuria. He also endorses dark stools for the last 3 days with periumbilical abdominal cramping. He reports being constipated for the last three days until he took a stool softener today. He denies being on CTX or undergoing any procedures for his cancer. Denies fevers/chills, MAYO, vision changes, chest pain, vomiting, BRBPR, dysuria, or rash. Urology: Dr. Novoa PCP: Dr. Gaytan 02/12/19 13:44 Past History - Past Medical History Allergies/Adverse Reactions: Allergies Allergy/AdvReac Type Severity Reaction Status Date / Time ibuprofen [From Advil] Allergy Unknown Vomiting Verified 08/12/18 12:54 azithromycin [From Zithromax] AdvReac Mild Vomiting Verified 08/12/18 12:54 Home Medications: Ambulatory Orders Aspirin [ASA -] 81 mg PO DAILY #0 tab.chew 07/31/14 Rosuvastatin [Crestor -] 10 mg PO DAILY 12/05/16 Furosemide [Lasix -] 20 mg PO DAILY 10/09/17 Albuterol 0.083% Nebulizer Jacki [Ventolin 0.083% Nebulizer Soln -] 1 neb NEB Q4H PRN #20 vial 10/25/17 Albuterol Sulfate Inhaler - [Ventolin HFA Inhaler -] 1 - 2 inh PO Q4H PRN #1 inhaler 10/25/17 Alfuzosin HCl [Alfuzosin HCl ER] 10 mg PO DAILY 02/02/18 Budesonide/Formeterol Fumarate [SYMBICORT 160/4.5mcg -] 1 inh PO BID 02/02/18 Bicalutamide [Casodex] 50 mg PO BID 12/25/18 Montelukast Na [Singulair -] 10 mg PO HS 02/12/19 Prednisone 5 mg PO DAILY 02/12/19 Anemia: No Asthma: Yes Cardiac Disorders: Yes (CHF) CVA: No COPD: Yes CHF: Yes DVT: Yes Dementia: No Diabetes: Yes (NO MED - RELATED PREDISONE) GI Disorders: Yes (GERD, COLON POLYP) Disorders: Yes (ENLARGED PROSTATE) HTN: Yes Hypercholesterolemia: Yes Liver Disease: No Seizures: No Thyroid Disease: No - Surgical History Abdominal Surgery: No Appendectomy: No Cardiac Surgery: No Cholecystectomy: No Lung Surgery: No Neurologic Surgery: No Orthopedic Surgery: No - Immunization History Immunization Up to Date: Yes - Psycho Social/Smoking Cessation Hx Smoking Status: No Smoking History: Former smoker (smoked for 20ys, quit 30ys prior) Have you smoked in the past 12 months: No Number of Cigarettes Smoked Daily: 0 If you are a former smoker, when did you quit?: 2001 'Breaking Loose' booklet given: 01/08/12 Hx Alcohol Use: No Drug/Substance Use Hx: No Substance Use Type: None Hx Substance Use Treatment: No Review of Systems - Review of Systems Able to Perform ROS?: Yes Comments:: GENERAL/CONSTITUTIONAL: No fever or chills. No weakness HEAD, EYES, EARS, NOSE AND THROAT: No change in vision. No change in hearing. No sore throat CARDIOVASCULAR: No chest pain or shortness of breath RESPIRATORY: Denies cough, hemoptysis GASTROINTESTINAL: +constipation; No nausea, vomiting, diarrhea GENITOURINARY: +hematuria; denies dysuria or frequency MUSCULOSKELETAL: No joint or muscle swelling or pain. No neck or back pain SKIN: No rash NEUROLOGIC: No headache, vertigo, loss of consciousness, or change in strength/ sensation ENDOCRINE: No increased thirst. No abnormal weight change HEMATOLOGIC/LYMPHATIC: No anemia, easy bleeding, or history of blood clots ALLERGIC/IMMUNOLOGIC: No hives or skin allergy 02/12/19 12:47 Is the patient limited Kosovan proficient: No *Physical Exam - Vital Signs Vital Signs Period Temp Pulse Resp BP Sys/Hall Pulse Ox Last 24 Hr 98.4 F 84 16 130/74 100 02/12/19 13:47 - Physical Exam Comments: GENERAL: Awake, alert, and oriented to person/place/time, in no acute distress HEAD: No signs of trauma, normocephalic, atraumatic EYES: PERRLA, EOMI, sclera anicteric, conjunctiva clear ENT: Hearing grossly normal, nares patent, oropharynx clear without exudates. Moist mucosa LUNGS: No distress, speaks in full sentences, clear to auscultation bilaterally HEART: Regular rate and rhythm, normal S1 and S2, no murmurs appreciated, peripheral pulses normal and equal bilaterally ABDOMEN: Soft, protuberant, mild periumbilical/suprapubic TTP w/o rebound or guarding, normoactive bowel sounds RECTAL: No external hemorrhoids, soft stool in vault, no overt masses, no blood on exam glove EXTREMITIES: Normal inspection, Normal range of motion, no edema. No clubbing or cyanosis NEUROLOGICAL: Cranial nerves II through XII grossly intact. Normal speech, normal gait, no focal sensorimotor deficits SKIN: Warm, Dry 02/12/19 12:47 ED Treatment Course - LABORATORY CBC & Chemistry Diagram: 02/12/19 13:30 02/12/19 13:30 Medical Decision Making - Medical Decision Making The pt is a 73M w/ a history of HTN, HLD, CHF, COPD, and a recent dx of prostate cancer (bicalutamide) who presents for evaluation of 2 days of hematuria w/ endorsed dark stool, and abdominal pain ED Course Labs sent CT A&P w/ IV contrast Will reassess 02/12/19 13:49 No leukocytosis No anemia FOBT neg Lytes wnl LFTs elevated, possibly 2/2 bicalutamide No CHERYL US w/ cholelithiasis w/ mild CBD dilation 02/12/19 15:45 Plan for admission for transaminitis 02/12/19 23:09 Discharge - Discharge Information Problems reviewed: Yes Clinical Impression/Diagnosis: Transaminitis, Prostate cancer Hematuria Qualifiers: Hematuria type: unspecified type Qualified Code(s): R31.9 - Hematuria, unspecified DM (diabetes mellitus) Qualifiers: Diabetes mellitus type: type 2 Diabetes mellitus predatory animal exterminator insulin use: with predatory animal exterminator use Diabetes mellitus complication status: with other specified complication Qualified Code(s): E11.69 - Type 2 diabetes mellitus with other specified complication Condition: Good - Admission Yes - Follow up/Referral - Patient Discharge Instructions - Post Discharge Activity
[2019-02-12 13:42] LABS: BASO % 0.6 % (0-2.0); EOS % 15.5 % (0-4.5); HEMATOCRIT 40.1 % (35.4-49); HEMOGLOBIN 13.5 GM/dL (11.7-16.9); LYMPH % 24.8 % (8-40); MCH 29.2 pg (25.7-33.7); MCHC 33.6 g/dl (32.0-35.9); MEAN CELL VOLUME 87.1 fl (80-96); MEAN PLT VOLUME 8.7 fl (7.5-11.1); MONO % 9.7 % (3.8-10.2); NEUT % 49.4 % (42.8-82.8); PLATELET COUNT 235 K/MM3 (134-434); RDW 13.3 % (11.9-15.9); WHITE BLOOD COUNT 6.5 K/mm3 (4.0-10.0)
[2019-02-12 13:56] LABS: INR 1.24 (0.83-1.09); PROTHROMBIN TIME (PATIENT) 14.7 SEC (9.7-13.0)
[2019-02-12 13:59] LABS: ACTIVATED PTT 36.3 SECONDS (25.2-36.5)
[2019-02-12 14:09] LABS: ALBUMIN 3.6 g/dl (3.4-5.0); BILIRUBIN,TOTAL 4.3 mg/dL (0.2-1); BLOOD UREA NITROGEN 11.7 mg/dL (7-18); CALCIUM 9.5 mg/dL (8.5-10.1); POTASSIUM 4.1 mmol/L (3.5-5.1); TOT PROT 7.1 g/dl (6.4-8.2)
--- NOTE | 2019-02-12 14:32 | PDOC ---
Attending Attestation - Resident Resident Name: Manfred Alcocer - HPI HPI: 02/12/19 14:46 Pt presents to the ED complaining of a 5 day history of painless hematuria, along with dark, tarry stools. Denies fever, nausea and vomiting or abdominal pain. History of prostate CA, on casodex for treatment. 02/12/19 14:57 02/12/19 14:57 - Physicial Exam PE: 02/12/19 14:58 Agree with resident exam. Patient is alert and oriented x 3 and in no acute distress. abdomen is soft, non tender, non distended without guarding or rebound. - Medical Decision Making 02/12/19 15:08 Pt presents to the ED complaining of painless hematuria. Labs show elevated LFTs with elevated transaminases and bilirubin. While this may be secondary to a medication side effect, will check US to rule out obstruction. Will admit to medicine for continued monitoring. 02/12/19 15:09
[2019-02-12 18:44] LABS: URINE APPEARANCE CLEAR; URINE COLOR DK YELLOW; URINE GLUCOSE (UA) NEGATIVE (NEGATIVE)
[2019-02-12 18:45] LABS: PH,URINE 6.5 (5.0-8.0); URINE BILIRUBIN 2+ (NEGATIVE); URINE KETONE NEGATIVE (NEGATIVE); URINE LEUK ESTERASE NEGATIVE (NEGATIVE); URINE NITRITE NEGATIVE (NEGATIVE); URINE PROTEIN NEGATIVE (NEGATIVE)
[2019-02-12 19:45] LABS: BILIRUBIN,DIRECT 3.5 mg/dL (0.0-0.2)
[2019-02-12] MEDS ORDERED: ACETAMINOPHEN 325 MG TABLET (FP) PO PRN (19:49)
--- NOTE | 2019-02-12 19:49 | HP ---
Admitting History and Physical - Primary Care Physician PCP: David Gaytan - Admission Chief Complaint: Gross hematuria History of Present Illness: 73 year old male with a significant past medical history of HTN, HLD, COPD, DM, BPH, and CHF who presents to the ED with worsening hematuria over the course of 3days. Pt has prostate cancer which is being treated with casodex BID. He reports mild hematuria starting on tuesday which progressed to gross hematuria by tuesday. He reports mild left sided pelvic pain, denies fever/chills/N/V/D, + constipation. In ED vitals: BP 130/74, HR 84, RR 16, T 98.4, O2 100% US w/ cholelithiasis w/ mild CBD dilation CT + gallstones, small hiatal hernia, small-moderate umbilical hernia LFTs --> AST 176, ALT 453 LipaSE: normal (164) stool occult negative decision made to admit for observation and evaluation by urology History Source: Patient, Medical Record Limitations to Obtaining History: No Limitations - Past Medical History Cardiovascular: Yes: HTN, Hyperlipdemia, Pulmonary Hypertension, Other Pulmonary: Yes: Asthma, COPD Gastrointestinal: Yes: Constipation, Ulcerative Colitis (PULM/CCM ). No: Ascites, Cancer, Crohn's Disease, Diverticulitis, Diverticulosis, Esophageal Varices, Gastritis, GERD, GI Bleed, Hemorrhoids, Hiatal Hernia, Inflamatory Bowel Disease, Irritable Bowel Disease, Pancreatitis, Peptic Ulcer Disease, Other Renal/: Yes: Cancer (prostate cancer) Endocrine: Yes: Diabetes Mellitus. No: Donavon's Disease, Pako's Disease, Diabetes Insipidus, Hyperparathyroidism, Hyperthyroidism, Hypothyroidism, Osteopenia, SIADH, Other - Past Surgical History Additional Past Surgical History: bilateral cataract extraction - Advance Directives Advance Directives: Yes: Health Care Proxy (Daughter: Stefanie Raphael [phone] Common-Law : Hiral [phone]) - Smoking History Smoking history: Former smoker (smoked for 20ys, quit 30ys prior) Have you smoked in the past 12 months: No Aproximately how many cigarettes per day: 0 If you are a former smoker, when did you quit?: 2001 - Alcohol/Substance Use Hx Alcohol Use: No History of Substance Use: reports: None - Social History Usual Living Arrangement: Yes: Other (lives with common law and son) Do you think of yourself as: Straight/Heterosexual ADL: Independent 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 History of Recent Travel: No Home Medications - Allergies Allergies/Adverse Reactions: Allergies Allergy/AdvReac Type Severity Reaction Status Date / Time ibuprofen [From Advil] Allergy Unknown Vomiting Verified 08/12/18 12:54 azithromycin [From Zithromax] AdvReac Mild Vomiting Verified 08/12/18 12:54 - Home Medications Home Medications: Ambulatory Orders Aspirin [ASA -] 81 mg PO DAILY #0 tab.chew 07/31/14 Rosuvastatin [Crestor -] 10 mg PO DAILY 12/05/16 Furosemide [Lasix -] 20 mg PO DAILY 10/09/17 Albuterol 0.083% Nebulizer Jacki [Ventolin 0.083% Nebulizer Soln -] 1 neb NEB Q4H PRN #20 vial 10/25/17 Albuterol Sulfate Inhaler - [Ventolin HFA Inhaler -] 1 - 2 inh PO Q4H PRN #1 inhaler 10/25/17 Alfuzosin HCl [Alfuzosin HCl ER] 10 mg PO DAILY 02/02/18 Budesonide/Formeterol Fumarate [SYMBICORT 160/4.5mcg -] 1 inh PO DAILY 02/02/18 Bicalutamide [Casodex] 50 mg PO DAILY 12/25/18 Montelukast Na [Singulair -] 10 mg PO HS 02/12/19 Prednisone 5 mg PO DAILY 02/12/19 Family Medical History Family Hx Cancer: Sister ( (72) lung cancer), Brother ( (70) stomach cancer) Family Hx Cardiac Disorders: Father ( (58) [place]) Family Hx Diabetes: Mother ( (41) ? cerebral aneurysm) Other Family History: sister alive (79) unknown medical condition. Brother (21) killed in war. pt has 7 children ages 19-51 Review of Systems - Review of Systems Constitutional: reports: No Symptoms Eyes: reports: No Symptoms HENT: reports: No Symptoms Neck: reports: No Symptoms Cardiovascular: reports: No Symptoms Respiratory: reports: Wheezing Gastrointestinal: reports: Constipation Genitourinary: reports: Hematuria Breasts: reports: No Symptoms Reported Musculoskeletal: reports: No Symptoms Integumentary: reports: No Symptoms Neurological: reports: No Symptoms Endocrine: reports: No Symptoms Hematology/Lymphatic: reports: No Symptoms Psychiatric: reports: No Symptoms Physical Examination Vital Signs: Vital Signs Temperature 98.4 F 02/12/19 12:15 Pulse Rate 66 02/12/19 19:38 Respiratory Rate 19 02/12/19 19:38 Blood Pressure 141/72 02/12/19 19:38 O2 Sat by Pulse Oximetry (%) 98 02/12/19 19:38 Constitutional: Yes: Well Nourished, No Distress, Calm Eyes: Yes: Conjunctiva Clear, PERRL HENT: Yes: Atraumatic, Normocephalic Neck: Yes: Supple, Trachea Midline Cardiovascular: Yes: Regular Rate and Rhythm Respiratory: Yes: Regular, CTA Bilaterally, Wheezes (b/l lung bases) Gastrointestinal: Yes: Normal Bowel Sounds, Soft Renal/: Yes: WNL Musculoskeletal: Yes: WNL Extremities: Yes: WNL Edema: No Peripheral Pulses WNL: Yes Integumentary: Yes: WNL Neurological: Yes: Alert, Oriented ...Motor Strength: WNL Psychiatric: Yes: Alert, Oriented Labs: CBC, BMP 02/12/19 13:30 02/12/19 13:30 Imaging - Results Cat Scan: Report Reviewed (Ct abd and pelvis 02/12/2019 Impression: IMPRESSION : Interval development of choledocholithiasis is seen in comparison to a 2013 CT exam. Associated development of mild extrahepatic and minimal intrahepatic biliary tract dilatation is noted. Cholelithiasis is again noted. There is no CT evidence of acute cholecystitis. The remainder of the exam demonstrates no definite interval change. Small to moderate umbilical hernia containing fat only. Small bilateral inguinal hernias ining fat only. Small hiatal hernia. No gross urinary tract calculus or mass lesion is seen on single phase contrast enhanced imaging as noted above. 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 Diabetes mellitus complication status: with other specified complication Qualified Code(s): E11.69 - Type 2 diabetes mellitus with other specified complication; Z79.4 - intermediate (current) use of insulin (2) Hematuria Assessment/Plan: urology consult placed hold casodex until seen by uro hold ASA strict intaKE AND OUTput Code(s): R31.9 - HEMATURIA, UNSPECIFIED Qualifiers: Hematuria type: unspecified type Qualified Code(s): R31.9 - Hematuria, unspecified (3) Prostate cancer Assessment/Plan: holding casodex cont Alfuzosin for retention APAP PRN pain Code(s): C61 - MALIGNANT NEOPLASM OF PROSTATE (4) Transaminitis Assessment/Plan: trend LFTs consider GI consult if LFTs worsening Code(s): R74.0 - NONSPEC ELEV OF LEVELS OF TRANSAMNS & LACTIC ACID DEHYDRGNSE (5) COPD (chronic obstructive pulmonary disease) Assessment/Plan: continue singulair, symbicort duonebs PRN pred 5mg daily Code(s): J44.9 - CHRONIC OBSTRUCTIVE PULMONARY DISEASE, UNSPECIFIED Qualifiers: COPD type: unspecified COPD Qualified Code(s): J44.9 - Chronic obstructive pulmonary disease, unspecified (6) Hyperlipemia Assessment/Plan: crestor 10mg daily Code(s): E78.5 - HYPERLIPIDEMIA, UNSPECIFIED (7) Constipation Assessment/Plan: bowel regimen with senna and colace Code(s): K59.00 - CONSTIPATION, UNSPECIFIED (8) Need for prophylactic measure Assessment/Plan: KETTY stocking hold SC heparin due to hematuria Code(s): Z29.9 - ENCOUNTER FOR PROPHYLACTIC MEASURES, UNSPECIFIED (9) Heart failure Assessment/Plan: continue lasix 20mg daily daily weights strict I and O Code(s): I50.9 - HEART FAILURE, UNSPECIFIED Assessment/Plan DISPO: observe overnight Code status: Full Visit type - Emergency Visit Emergency Visit: Yes ED Registration Date: 02/12/19 Care time: The patient presented to the Emergency Department on the above date and was hospitalized for further evaluation of their emergent condition. - New Patient This patient is new to me today: Yes Date on this admission: 02/12/19 - Critical Care Critical Care patient: No
[2019-02-12] MEDS ORDERED: ROSUVASTATIN CA 10 MG TABLET (FP) PO SCH (20:00)
[2019-02-12] MEDS: INSULIN SLIDING SCALE (NOVOLOG) 1 VIAL SQ SCH (22:18)
[2019-02-12] MEDS: MONTELUKAST NA 10 MG TABLET PO SCH (22:18)
[2019-02-12] MEDS: ROSUVASTATIN CA 10 MG TABLET (FP) PO SCH (22:18)
[2019-02-12] MEDS: SENNOSIDES 8.6MG TABLET (FP) PO PRN (22:25)
[2019-02-12] MEDS: DOCUSATE SODIUM 100 MG CAPSULE (FP) PO PRN (22:25)
[2019-02-12] MEDS: BUDESONIDE/FORMETEROL FUMARATE 160/4.5 mcg INHALER IH SCH (23:04)
[2019-02-13 03:53] VITALS: BMI 31.1
[2019-02-13] MEDS: INSULIN SLIDING SCALE (NOVOLOG) 1 VIAL SQ SCH ×3 (06:14→16:36)
[2019-02-13 07:05] LABS: HEMATOCRIT 40.2 % (35.4-49); HEMOGLOBIN 13.5 GM/dL (11.7-16.9); MCH 29.7 pg (25.7-33.7); MCHC 33.4 g/dl (32.0-35.9); MEAN CELL VOLUME 88.7 fl (80-96); MEAN PLT VOLUME 9.1 fl (7.5-11.1); PLATELET COUNT 221 K/MM3 (134-434); RBC 4.53 M/mm3 (4.00-5.60); RDW 13.4 % (11.9-15.9); WHITE BLOOD COUNT 7.8 K/mm3 (4.0-10.0)
[2019-02-13 07:49] LABS: ALBUMIN 3.3 g/dl (3.4-5.0); BILIRUBIN,TOTAL 2.2 mg/dL (0.2-1); BLOOD UREA NITROGEN 13.9 mg/dL (7-18); MAGNESIUM 2.3 mg/dL (1.8-2.4); POTASSIUM 4.3 mmol/L (3.5-5.1); TOT PROT 6.8 g/dl (6.4-8.2)
--- NOTE | 2019-02-13 09:07 | CONSULT ---
Consult Consult Specialty:: urology Referred by:: Lucila Reason for Consultation:: gross hematuria - History of Present Illness Chief Complaint: gross painless hematuria History of Present Illness: Patient is a 73 year old male with history of CAP/BPH who presents with constipation, melena, and report of gross painless hematuria. Patient showed me a urine which is orange however without evidence of gross hematuria. UA shows no evidence of microscopic hematuria. Patient is voiding well. - History Source History Provided By: Patient Limitations to Obtaining History: No Limitations - Past Medical History Cardio/Vascular: Yes: HTN, Hyperlipdemia, Pulmonary Hypertension, Other Pulmonary: Yes: Asthma, COPD Gastrointestinal: Yes: Constipation, Ulcerative Colitis (PULM/CCM ). No: Ascites, Cancer, Crohn's Disease, Diverticulitis, Diverticulosis, Esophageal Varices, Gastritis, GERD, GI Bleed, Hemorrhoids, Hiatal Hernia, Inflamatory Bowel Disease, Irritable Bowel Disease, Pancreatitis, Peptic Ulcer Disease, Other Renal/: Yes: Cancer (prostate cancer) Endocrine: Yes: Diabetes Mellitus. 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 History of Recent Travel: No Home Medications - Allergies Allergies/Adverse Reactions: Allergies Allergy/AdvReac Type Severity Reaction Status Date / Time ibuprofen [From Advil] Allergy Unknown Vomiting Verified 08/12/18 12:54 azithromycin [From Zithromax] AdvReac Mild Vomiting Verified 08/12/18 12:54 - Home Medications Home Medications: Ambulatory Orders Aspirin [ASA -] 81 mg PO DAILY #0 tab.chew 07/31/14 Rosuvastatin [Crestor -] 10 mg PO DAILY 12/05/16 Furosemide [Lasix -] 20 mg PO DAILY 10/09/17 Albuterol 0.083% Nebulizer Jacki [Ventolin 0.083% Nebulizer Soln -] 1 neb NEB Q4H PRN #20 vial 10/25/17 Albuterol Sulfate Inhaler - [Ventolin HFA Inhaler -] 1 - 2 inh PO Q4H PRN #1 inhaler 10/25/17 Alfuzosin HCl [Alfuzosin HCl ER] 10 mg PO DAILY 02/02/18 Budesonide/Formeterol Fumarate [SYMBICORT 160/4.5mcg -] 1 inh PO BID 02/02/18 Bicalutamide [Casodex] 50 mg PO BID 12/25/18 Montelukast Na [Singulair -] 10 mg PO HS 02/12/19 Prednisone 5 mg PO DAILY 02/12/19 Physical Exam Vital Signs: Vital Signs Temperature 98.6 F 02/13/19 06:21 Pulse Rate 57 L 02/13/19 06:21 Respiratory Rate 18 02/13/19 06:21 Blood Pressure 111/65 02/13/19 06:21 O2 Sat by Pulse Oximetry (%) 97 02/12/19 22:00 Constitutional: Yes: Well Nourished, No Distress, Calm Eyes: Yes: WNL, Conjunctiva Clear, EOM Intact HENT: Yes: WNL, Atraumatic, Normocephalic Neck: Yes: WNL, Supple, Trachea Midline Cardiovascular: Yes: Regular Rate and Rhythm Respiratory: Yes: WNL Gastrointestinal: Yes: Normal Bowel Sounds, Soft ...Rectal Exam: Yes: Other (3+ indurated prostate) Renal/: Yes: WNL Breast(s): Yes: WNL Musculoskeletal: Yes: WNL Extremities: Yes: WNL Edema: No Labs: CBC, BMP 02/13/19 06:20 02/13/19 06:20 Imaging - Results Cat Scan: Report Reviewed Ultrasound: Report Reviewed Assessment/Plan impression bph CAP report of gross hematuria plan patient's CT scan shows no suspicious renal lesions. Patient has had a cystoscopy within the last 6 months which was negative for bladder pathology. will follow-up as outpatient continue flomax no urologic indication for further in-house treatment
[2019-02-13] MEDS: BUDESONIDE/FORMETEROL FUMARATE 160/4.5 mcg INHALER IH SCH ×2 (09:36→21:27)
[2019-02-13] MEDS: FUROSEMIDE 20 MG TABLET (FP) PO SCH (09:36)
[2019-02-13] MEDS: predniSONE 5 MG TABLET (UD) PO SCH (09:36)
[2019-02-13] MEDS: DOCUSATE SODIUM 100 MG CAPSULE (FP) PO PRN ×2 (09:46→21:28)
[2019-02-13] MEDS ORDERED: PATIENT'S OWN MEDICATION (NON-FORMULARY) (Alfuzosin Hcl [Alfuzosin Hcl Er] 10 MG) PO SCH (10:00)
--- NOTE | 2019-02-13 10:05 | EKG ---
Test Reason : Blood Pressure : / mmHG Vent. Rate : 064 BPM Atrial Rate : 064 BPM P-R Int : 184 ms QRS Dur : 096 ms QT Int : 414 ms P-R-T Axes : 064 015 037 degrees QTc Int : 427 ms NORMAL SINUS RHYTHM NORMAL ECG WHEN COMPARED WITH ECG OF 12-AUG-2018 12:47, NO SIGNIFICANT CHANGE WAS FOUND Confirmed by Amarjit Wright MD ([id number]) on 02/13/2019 10:04:47 AM Also confirmed by MD CORNEJO PENG ([id number]) on 02/13/2019 10:04:54 AM Referred By: Confirmed By:JUNIOR CORNEJO MD
--- NOTE | 2019-02-13 10:37 | PN ---
Progress Note, Physician Chief Complaint: Gross hematuria History of Present Illness: NAD in bed self ambulatory seen by GI for abn liver enzymes - Current Medication List Current Medications: Active Medications Acetaminophen (Tylenol -) 650 mg PO Q6H PRN PRN Reason: PAIN LEVEL 1-5 Albuterol Sulfate (Ventolin 0.083% Nebulizer Soln -) 1 amp NEB Q4H PRN PRN Reason: ASTHMA Budesonide/Formoterol Fumarate (Symbicort 160/4.5mcg -) 1 puff IH BID [facility] Last Admin: 02/13/19 09:36 Dose: 1 puff Docusate Sodium (Colace -) 100 mg PO Q8H PRN PRN Reason: CONSTIPATION Last Admin: 02/13/19 09:46 Dose: 100 mg Furosemide (Lasix -) 20 mg PO DAILY [facility] Last Admin: 02/13/19 09:36 Dose: 20 mg Insulin Aspart (Novolog Vial Sliding Scale -) 0 vial SQ ACHS [facility]; Protocol Last Admin: 02/13/19 06:14 Dose: Not Given Montelukast Sodium (Singulair -) 10 mg PO HS [facility] Last Admin: 02/12/19 22:18 Dose: 10 mg Non-Formulary Medication (Alfuzosin Hcl [Alfuzosin Hcl Er]) 10 mg PO DAILY [facility] Prednisone (Deltasone -) 5 mg PO DAILY [facility] Last Admin: 02/13/19 09:36 Dose: 5 mg Rosuvastatin Calcium (Crestor -) 10 mg PO HS [facility] Last Admin: 02/12/19 22:18 Dose: 10 mg Senna (Senna -) 2 tab PO HS PRN PRN Reason: CONSTIPATION Last Admin: 02/12/19 22:25 Dose: 2 tab - Objective Vital Signs: Vital Signs Temperature 98.2 F 02/13/19 09:47 Pulse Rate 68 02/13/19 09:47 Respiratory Rate 20 02/13/19 09:47 Blood Pressure 130/66 02/13/19 09:47 O2 Sat by Pulse Oximetry (%) 98 02/13/19 09:47 Constitutional: Yes: Well Nourished, No Distress, Calm Cardiovascular: Yes: Regular Rate and Rhythm Respiratory: Yes: Regular Gastrointestinal: Yes: Normal Bowel Sounds, Soft, Abdomen, Obese Genitourinary: Yes: WNL Musculoskeletal: Yes: WNL Extremities: Yes: WNL Edema: No Peripheral Pulses WNL: Yes Neurological: Yes: Alert, Oriented Psychiatric: Yes: Alert, Oriented Labs: CBC, BMP 02/13/19 06:20 02/13/19 06:20 INR, PTT INR 1.24 (0.83-1.09) H 02/12/19 13:30 Problem List - Problems (1) DM (diabetes mellitus) Assessment/Plan: -Recheck A1c, last recorded A1c in EMR 7.0 in 2017 -BGM AC HS -Diabetic low sodium diet -ISS -Could be 2/2 to chronic prednisone usage Problems reviewed: Yes Code(s): E11.9 - TYPE 2 DIABETES MELLITUS WITHOUT COMPLICATIONS Qualifiers: Diabetes mellitus type: type 2 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 Diabetes mellitus complication status: with other specified complication Qualified Code(s): E11.69 - Type 2 diabetes mellitus with other specified complication; 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 Problems reviewed: Yes Code(s): R74.0 - NONSPEC ELEV OF LEVELS OF TRANSAMNS & LACTIC ACID DEHYDRGNSE (4) Hematuria Assessment/Plan: -None seen in UA -UC pending -Seen by Urology-no further intervention recommended -Cystoscopy done within past 6 months was normal. -H/H stable Problems reviewed: Yes Code(s): R31.9 - HEMATURIA, UNSPECIFIED Qualifiers: Hematuria type: unspecified type Qualified Code(s): R31.9 - Hematuria, unspecified Assessment/Plan see problem list
[2019-02-13] MEDS: TAMSULOSIN HCL 0.4 MG CAP PO SCH (17:14)
[2019-02-13] MEDS ORDERED: POLYETHYLENE GLYCOL 3350 119 GM BTL PO ONE (18:30)
--- NOTE | 2019-02-13 18:59 | CON.GI ---
Consult - History of Present Illness History of Present Illness: GI CONSULT DICTATED - MRCP - MONITOR LFT QD - SEROLOGIES FOR CHRONIC AND INHERITED LIVER DISEASE ORDERED - Past Medical History Cardio/Vascular: Yes: HTN, Hyperlipdemia, Pulmonary Hypertension, Other Pulmonary: Yes: Asthma, COPD Gastrointestinal: Yes: Constipation, Ulcerative Colitis (PULM/CCM ). No: Ascites, Cancer, Crohn's Disease, Diverticulitis, Diverticulosis, Esophageal Varices, Gastritis, GERD, GI Bleed, Hemorrhoids, Hiatal Hernia, Inflamatory Bowel Disease, Irritable Bowel Disease, Pancreatitis, Peptic Ulcer Disease, Other Renal/: Yes: Cancer (prostate cancer) Endocrine: Yes: Diabetes Mellitus. 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 Travel: No Home Medications - Allergies Allergies/Adverse Reactions: Allergies Allergy/AdvReac Type Severity Reaction Status Date / Time ibuprofen [From Advil] Allergy Unknown Vomiting Verified 08/12/18 12:54 azithromycin [From Zithromax] AdvReac Mild Vomiting Verified 08/12/18 12:54 - Home Medications Home Medications: Ambulatory Orders Aspirin [ASA -] 81 mg PO DAILY #0 tab.chew 07/31/14 Rosuvastatin [Crestor -] 10 mg PO DAILY 12/05/16 Furosemide [Lasix -] 20 mg PO DAILY 10/09/17 Albuterol 0.083% Nebulizer Jacki [Ventolin 0.083% Nebulizer Soln -] 1 neb NEB Q4H PRN #20 vial 10/25/17 Albuterol Sulfate Inhaler - [Ventolin HFA Inhaler -] 1 - 2 inh PO Q4H PRN #1 inhaler 10/25/17 Alfuzosin HCl [Alfuzosin HCl ER] 10 mg PO DAILY 02/02/18 Budesonide/Formeterol Fumarate [SYMBICORT 160/4.5mcg -] 1 inh PO BID 02/02/18 Bicalutamide [Casodex] 50 mg PO BID 12/25/18 Montelukast Na [Singulair -] 10 mg PO HS 02/12/19 Prednisone 5 mg PO DAILY 02/12/19 Physical Exam-GI Vital Signs: Vital Signs Temperature 97.7 F 02/13/19 13:42 Pulse Rate 62 02/13/19 13:42 Respiratory Rate 16 02/13/19 13:42 Blood Pressure 131/72 02/13/19 13:42 O2 Sat by Pulse Oximetry (%) 98 02/13/19 09:47 Labs: CBC, BMP 02/13/19 06:20 02/13/19 06:20 INR, PTT INR 1.24 (0.83-1.09) H 02/12/19 13:30
[2019-02-13] MEDS: SENNOSIDES 8.6MG TABLET (FP) PO PRN (21:28)
[2019-02-13] MEDS: ROSUVASTATIN CA 10 MG TABLET (FP) PO SCH (21:28)
[2019-02-13] MEDS: MONTELUKAST NA 10 MG TABLET PO SCH (21:28)
--- NOTE | 2019-02-14 00:03 | CONS ---
DATE OF CONSULTATION: DATE OF DICTATION: 02/13/2019 GASTROINTESTINAL CONSULTATION HISTORY OF PRESENT ILLNESS: The patient is a 73-year-old man with past medical history significant for hypertension, hyperlipidemia, COPD, diabetes, BPH, and CHF. Recent diagnosis of prostate cancer and has been on Casodex since May, who presents to the hospital with hematuria, which began on Tuesday. During course of hospitalization, he has been noted to have abnormal liver test. He denies a history of liver disease. He has never had jaundice, encephalopathy. He denies taking any antibiotics, travel, or other new medications or herbal supplements as an outpatient. The only new medication that was started in May was Casodex. He admits to constipation, denies any nausea, vomiting, diarrhea, or abdominal pain. He denies melena or hematochezia. He has not had a recent upper endoscopy or colonoscopy. PAST MEDICAL AND SURGICAL HISTORY: As listed in the HPI. ALLERGIES: IBUPROFEN, AZITHROMYCIN. SOCIAL HISTORY: Former smoker, quit 30 years ago. Does not drink. Does not use drugs. FAMILY HISTORY: No history of GI or gynecological malignancy. Significant for lung and stomach cancer. HOME MEDICATIONS: Reviewed. Including aspirin, Crestor, Lasix, albuterol, Symbicort, Casodex, Singulair, and prednisone. REVIEW OF SYSTEMS: As per the HPI. PHYSICAL EXAMINATION: Vital Signs: Temperature 97, pulse 62, blood pressure 131/72, respiratory rate 16, oxygen saturation 98% on room air. General: In no acute distress. HEENT: Anicteric sclerae. Cardiovascular: S1, S2, regular rate and rhythm. Lungs: Bilaterally clear to auscultation. Abdomen: Soft, nontender. Extremities: No edema. LABORATORY: White blood cell count reviewed. CBC and coagulation profile, AST 111, ALT 358, alkaline phosphatase 238, total bilirubin 2.2. On the , his ALT was 453, INR 1.24. White blood cell count 7.8, hemoglobin and hematocrit 13 and 40, MCV 88, platelet count 221. Stool for occult blood negative. Urine +2 bilirubin. He had an abdominal ultrasound which revealed cholelithiasis with mild biliary ductal dilatation and also an abdominal pelvic CT scan with contrast which revealed cholelithiasis, no cholecystitis, umbilical hernia, inguinal hernia, hiatal hernia, no gross urinary tract calculus or mass. IMPRESSION: Transaminitis with mildly dilated biliary tree and cholelithiasis. This is highly suspicious for a past stone or microlithiasis. Would recommend MRCP to further reevaluate the biliary tree. Serologies for chronic and inherited liver disease will be ordered for completeness. Avoid hepatotoxic medications. Trend liver function tests daily while hospitalized. Further recommendations pending MRCP results. DO ELVA HAILE/[id number]
[2019-02-14] MEDS: metFORMIN HCL 500 MG TABLET (FP) PO SCH ×2 (06:44→17:04)
[2019-02-14 08:24] LABS: ALBUMIN 3.2 g/dl (3.4-5.0); BILIRUBIN,TOTAL 4.7 mg/dL (0.2-1); TOT PROT 6.5 g/dl (6.4-8.2)
[2019-02-14] MEDS: BUDESONIDE/FORMETEROL FUMARATE 160/4.5 mcg INHALER IH SCH ×2 (09:16→21:51)
[2019-02-14] MEDS: FUROSEMIDE 20 MG TABLET (FP) PO SCH (09:17)
[2019-02-14] MEDS: predniSONE 5 MG TABLET (UD) PO SCH (09:17)
[2019-02-14] MEDS: ENOXAPARIN NA (PORCINE) 40 MG/0.4 ML DISP.SYRIN SQ SCH (09:17)
--- NOTE | 2019-02-14 10:59 | PN ---
Progress Note, Physician Chief Complaint: Gross hematuria History of Present Illness: NAD in bed self ambulatory seen by GI for abn liver enzymes MRCP w/o contrast pending Pt was able to void last evening, suprapubic pain resolved - Current Medication List Current Medications: Active Medications Acetaminophen (Tylenol -) 650 mg PO Q6H PRN PRN Reason: PAIN LEVEL 1-5 Albuterol Sulfate (Ventolin 0.083% Nebulizer Soln -) 1 amp NEB Q4H PRN PRN Reason: ASTHMA Budesonide/Formoterol Fumarate (Symbicort 160/4.5mcg -) 1 puff IH BID [facility] Last Admin: 02/14/19 09:16 Dose: 1 puff Docusate Sodium (Colace -) 100 mg PO Q8H PRN PRN Reason: CONSTIPATION Last Admin: 02/13/19 21:28 Dose: 100 mg Enoxaparin Sodium (Lovenox -) 40 mg SQ DAILY [facility] Last Admin: 02/14/19 09:17 Dose: 40 mg Furosemide (Lasix -) 20 mg PO DAILY [facility] Last Admin: 02/14/19 09:17 Dose: 20 mg Metformin HCl (Glucophage -) 500 mg PO BID@0700,1630 [facility] Last Admin: 02/14/19 06:44 Dose: 500 mg Montelukast Sodium (Singulair -) 10 mg PO HS [facility] Last Admin: 02/13/19 21:28 Dose: 10 mg Prednisone (Deltasone -) 5 mg PO DAILY [facility] Last Admin: 02/14/19 09:17 Dose: 5 mg Rosuvastatin Calcium (Crestor -) 10 mg PO HS [facility] Last Admin: 02/13/19 21:28 Dose: 10 mg Senna (Senna -) 2 tab PO HS PRN PRN Reason: CONSTIPATION Last Admin: 02/13/19 21:28 Dose: 2 tab Tamsulosin HCl (Flomax -) 0.8 mg PO DAILY@1800 [facility] Last Admin: 02/13/19 17:14 Dose: 0.8 mg - Objective Vital Signs: Vital Signs Temperature 97.9 F 02/14/19 09:22 Pulse Rate 78 02/14/19 09:22 Respiratory Rate 19 02/14/19 09:22 Blood Pressure 98/66 02/14/19 09:22 O2 Sat by Pulse Oximetry (%) 98 02/13/19 19:00 Constitutional: Yes: Well Nourished, No Distress, Calm Cardiovascular: Yes: Regular Rate and Rhythm Respiratory: Yes: Regular Gastrointestinal: Yes: Normal Bowel Sounds, Soft, Abdomen, Obese Musculoskeletal: Yes: WNL Extremities: Yes: WNL Edema: No Peripheral Pulses WNL: Yes Neurological: Yes: Alert, Oriented Psychiatric: Yes: Alert, Oriented Labs: CBC, BMP 02/13/19 06:20 02/13/19 06:20 INR, PTT INR 1.24 (0.83-1.09) H 02/12/19 13:30 Problem List - Problems (1) DM (diabetes mellitus) Assessment/Plan: -Recheck A1c, last recorded A1c in EMR 7.0 in 2017 -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 Problems reviewed: Yes Code(s): R74.0 - NONSPEC ELEV OF LEVELS OF TRANSAMNS & LACTIC ACID DEHYDRGNSE (4) Hematuria Assessment/Plan: -None seen in UA -UC pending -Seen by Urology-no further intervention recommended -Cystoscopy done within past 6 months was normal. -H/H stable Problems reviewed: Yes Code(s): R31.9 - HEMATURIA, UNSPECIFIED Qualifiers: Hematuria type: unspecified type Qualified Code(s): R31.9 - Hematuria, unspecified Assessment/Plan see problem list Spoke to daughter at bedside
[2019-02-14] MEDS: ALBUTEROL SO4 0.083% IH SOL 2.5 MG/3 ML VIAL.NEB. NEB PRN ×2 (11:21→20:50)
[2019-02-14] MEDS: TAMSULOSIN HCL 0.4 MG CAP PO SCH (17:04)
[2019-02-14] MEDS: MONTELUKAST NA 10 MG TABLET PO SCH (21:49)
[2019-02-14] MEDS: ROSUVASTATIN CA 10 MG TABLET (FP) PO SCH (21:49)
[2019-02-14] MEDS: SENNOSIDES 8.6MG TABLET (FP) PO PRN (21:49)
[2019-02-14] MEDS: DOCUSATE SODIUM 100 MG CAPSULE (FP) PO PRN (21:49)
--- NOTE | 2019-02-14 22:35 | CONSULT ---
Consult Consult Specialty:: endocrine Referred by:: yang ramos Reason for Consultation:: dm t 2 - History of Present Illness Chief Complaint: high sugars History of Present Illness: 73 year old male with a significant past medical history ofDM 2, HTN, HLD, COPD , BPH, and CHF who presents with hematuria ,That has progessed for past several days, Pt has prostate cancer which is being treated with casodex BID. He reports mild left sided pelvic pain, denies fever/chills/N/V/D, + constipation. he has had high blood sugars,feeling weak,and lack of muscle strenght,loss of appetite. - Past Medical History Cardio/Vascular: Yes: HTN, Hyperlipdemia, Pulmonary Hypertension, Other Pulmonary: Yes: Asthma, COPD Gastrointestinal: Yes: Constipation, Ulcerative Colitis (PULM/CCM ). No: Ascites, Cancer, Crohn's Disease, Diverticulitis, Diverticulosis, Esophageal Varices, Gastritis, GERD, GI Bleed, Hemorrhoids, Hiatal Hernia, Inflamatory Bowel Disease, Irritable Bowel Disease, Pancreatitis, Peptic Ulcer Disease, Other Renal/: Yes: Cancer (prostate cancer) Endocrine: Yes: Diabetes Mellitus. 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 History of Recent Travel: No Home Medications - Allergies Allergies/Adverse Reactions: Allergies Allergy/AdvReac Type Severity Reaction Status Date / Time ibuprofen [From Advil] Allergy Unknown Vomiting Verified 08/12/18 12:54 azithromycin [From Zithromax] AdvReac Mild Vomiting Verified 08/12/18 12:54 - Home Medications Home Medications: Ambulatory Orders Aspirin [ASA -] 81 mg PO DAILY #0 tab.chew 07/31/14 Rosuvastatin [Crestor -] 10 mg PO DAILY 12/05/16 Furosemide [Lasix -] 20 mg PO DAILY 10/09/17 Albuterol 0.083% Nebulizer Jacki [Ventolin 0.083% Nebulizer Soln -] 1 neb NEB Q4H PRN #20 vial 10/25/17 Albuterol Sulfate Inhaler - [Ventolin HFA Inhaler -] 1 - 2 inh PO Q4H PRN #1 inhaler 10/25/17 Alfuzosin HCl [Alfuzosin HCl ER] 10 mg PO DAILY 02/02/18 Budesonide/Formeterol Fumarate [SYMBICORT 160/4.5mcg -] 1 inh PO BID 02/02/18 Bicalutamide [Casodex] 50 mg PO BID 12/25/18 Montelukast Na [Singulair -] 10 mg PO HS 02/12/19 Prednisone 5 mg PO DAILY 02/12/19 Review of Systems - Review of Systems Constitutional: reports: Loss of Appetite Eyes: reports: No Symptoms HENT: reports: No Symptoms Neck: reports: No Symptoms Cardiovascular: reports: Shortness of Breath Respiratory: reports: Exercise Intolerance, SOB on Exertion Gastrointestinal: reports: Constipation, Nausea Genitourinary: reports: Flank Pain, Frequency, Urgency Breasts: reports: No Symptoms Reported Musculoskeletal: reports: Muscle Cramps, Muscle Weakness Endocrine: reports: Unexplained Weight Gain Physical Exam Vital Signs: Vital Signs Temperature 98.5 F 02/14/19 16:55 Pulse Rate 69 02/14/19 16:55 Respiratory Rate 19 02/14/19 16:55 Blood Pressure 153/79 02/14/19 16:55 O2 Sat by Pulse Oximetry (%) 97 02/14/19 11:00 Constitutional: Yes: Calm Eyes: Yes: EOM Intact HENT: Yes: Normocephalic Neck: Yes: Trachea Midline Cardiovascular: Yes: Regular Rate and Rhythm Respiratory: Yes: CTA Bilaterally Gastrointestinal: Yes: Normal Bowel Sounds ...Rectal Exam: Yes: Deferred Renal/: Yes: WNL Breast(s): Yes: WNL Musculoskeletal: Yes: Muscle Weakness Extremities: Yes: WNL Edema: No Neurological: Yes: Alert, Oriented Labs: CBC, BMP 02/13/19 06:20 02/13/19 06:20 Problem List - Problems (1) Constipation Code(s): K59.00 - CONSTIPATION, UNSPECIFIED (2) DM (diabetes mellitus) Code(s): E11.9 - TYPE 2 DIABETES MELLITUS WITHOUT COMPLICATIONS Qualifiers: Diabetes mellitus type: type 2 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 Diabetes mellitus complication status: with other specified complication Qualified Code(s): E11.69 - Type 2 diabetes mellitus with other specified complication; Z79.4 - detention (current) use of insulin (3) Hyperlipemia Code(s): E78.5 - HYPERLIPIDEMIA, UNSPECIFIED (4) Need for prophylactic measure Code(s): Z29.9 - ENCOUNTER FOR PROPHYLACTIC MEASURES, UNSPECIFIED (5) Prostate cancer Code(s): C61 - MALIGNANT NEOPLASM OF PROSTATE (6) Transaminitis Code(s): R74.0 - NONSPEC ELEV OF LEVELS OF TRANSAMNS & LACTIC ACID DEHYDRGNSE Assessment/Plan Current Active Problems Constipation (Acute) DM (diabetes mellitus) (Acute) Heart failure (Acute) Hematuria (Acute) Hyperlipemia (Acute) Need for prophylactic measure (Acute) Prostate cancer (Acute) Transaminitis (Acute) Abnormal Lab Results 02/14/19 06:28 Total Bilirubin 4.7 H D Direct Bilirubin 4.0 H AST 202 H ALT 366 H Alkaline Phosphatase 290 H Albumin 3.2 L Laboratory Results - last 24 hr 02/14/19 02/14/19 02/14/19 05:50 06:28 16:57 POC Glucometer 135 120 Total Bilirubin 4.7 H D Direct Bilirubin 4.0 H AST 202 H ALT 366 H Alkaline Phosphatase 290 H Total Protein 6.5 Albumin 3.2 L Laboratory Tests 02/13/19 02/13/19 02/13/19 05:46 12:24 16:34 POC Glucometer 84 110 187 02/14/19 02/14/19 05:50 16:57 POC Glucometer 135 120 plan: bgm qijd novolog scale continue metformin 500mg bid titrate to 1000mg bid as liver enzymes improve
[2019-02-15 02:07] LABS: HEP B CORE AB, TOT Negative (Negative)
[2019-02-15] MEDS: ALBUTEROL SO4 0.083% IH SOL 2.5 MG/3 ML VIAL.NEB. NEB PRN ×2 (06:19→20:30)
[2019-02-15 06:47] LABS: BILIRUBIN,DIRECT 1.4 mg/dL (0.0-0.2); BILIRUBIN,TOTAL 1.8 mg/dL (0.2-1); TOT PROT 6.3 g/dl (6.4-8.2)
[2019-02-15] MEDS: metFORMIN HCL 500 MG TABLET (FP) PO SCH ×2 (08:33→17:29)
[2019-02-15] MEDS: predniSONE 5 MG TABLET (UD) PO SCH (10:20)
[2019-02-15] MEDS: FUROSEMIDE 20 MG TABLET (FP) PO SCH (10:20)
[2019-02-15] MEDS: BUDESONIDE/FORMETEROL FUMARATE 160/4.5 mcg INHALER IH SCH ×2 (10:20→21:31)
[2019-02-15] MEDS: ENOXAPARIN NA (PORCINE) 40 MG/0.4 ML DISP.SYRIN SQ SCH (10:20)
[2019-02-15] MEDS ORDERED: MINERAL OIL ENEMA 133 ML ENEMA PR ONE (12:15)
[2019-02-15] MEDS ORDERED: MAG HYDROX/AL HYDROX/SIMETH -MYLANTA- ORAL SUSPENSION PO ONE (12:45)
--- NOTE | 2019-02-15 12:55 | PN ---
Progress Note, Physician Chief Complaint: patient seen and exaniend - Current Medication List Current Medications: Active Medications Acetaminophen (Tylenol -) 650 mg PO Q6H PRN PRN Reason: PAIN LEVEL 1-5 Albuterol Sulfate (Ventolin 0.083% Nebulizer Soln -) 1 amp NEB Q4H PRN PRN Reason: ASTHMA Last Admin: 02/15/19 06:19 Dose: 1 amp Budesonide/Formoterol Fumarate (Symbicort 160/4.5mcg -) 1 puff IH BID [facility] Last Admin: 02/15/19 10:20 Dose: 1 puff Docusate Sodium (Colace -) 100 mg PO Q8H PRN PRN Reason: CONSTIPATION Last Admin: 02/14/19 21:49 Dose: 100 mg Enoxaparin Sodium (Lovenox -) 40 mg SQ DAILY [facility] Last Admin: 02/15/19 10:20 Dose: 40 mg Furosemide (Lasix -) 20 mg PO DAILY [facility] Last Admin: 02/15/19 10:20 Dose: 20 mg Metformin HCl (Glucophage -) 500 mg PO BID@0700,1630 [facility] Last Admin: 02/15/19 08:33 Dose: 500 mg Montelukast Sodium (Singulair -) 10 mg PO HS [facility] Last Admin: 02/14/19 21:49 Dose: 10 mg Prednisone (Deltasone -) 5 mg PO DAILY [facility] Last Admin: 02/15/19 10:20 Dose: 5 mg Rosuvastatin Calcium (Crestor -) 10 mg PO HS [facility] Last Admin: 02/14/19 21:49 Dose: 10 mg Senna (Senna -) 2 tab PO HS PRN PRN Reason: CONSTIPATION Last Admin: 02/14/19 21:49 Dose: 2 tab Tamsulosin HCl (Flomax -) 0.8 mg PO DAILY@1800 [facility] Last Admin: 02/14/19 17:04 Dose: 0.8 mg - Objective Vital Signs: Vital Signs Temperature 98.1 F 02/15/19 10:00 Pulse Rate 76 02/15/19 10:00 Respiratory Rate 18 02/15/19 10:00 Blood Pressure 122/71 02/15/19 10:00 O2 Sat by Pulse Oximetry (%) 96 02/15/19 09:00 Constitutional: Yes: Calm Eyes: Yes: Sclera Icterus Cardiovascular: Yes: Regular Rate and Rhythm, S1, S2 Respiratory: Yes: CTA Bilaterally Gastrointestinal: Yes: Normal Bowel Sounds, Soft Edema: No Neurological: Yes: Alert, Oriented Labs: CBC, BMP 02/13/19 06:20 02/13/19 06:20 INR, PTT INR 1.24 (0.83-1.09) H 02/12/19 13:30 Problem List - Problems (1) Transaminitis Assessment/Plan: elevated bilirubin down trending mrcp done liver normal CBD duct dilatation cholelithiasis work up in progress Code(s): R74.0 - NONSPEC ELEV OF LEVELS OF TRANSAMNS & LACTIC ACID DEHYDRGNSE (2) Constipation Assessment/Plan: enema Code(s): K59.00 - CONSTIPATION, UNSPECIFIED (3) Hematuria Assessment/Plan: seen by urology cystocopy done 6 months ago negative findings flomax Code(s): R31.9 - HEMATURIA, UNSPECIFIED Qualifiers: Hematuria type: unspecified type Qualified Code(s): R31.9 - Hematuria, unspecified (4) COPD (chronic obstructive pulmonary disease) Assessment/Plan: bronchodilators Code(s): J44.9 - CHRONIC OBSTRUCTIVE PULMONARY DISEASE, UNSPECIFIED Qualifiers: COPD type: unspecified COPD Qualified Code(s): J44.9 - Chronic obstructive pulmonary disease, unspecified
[2019-02-15] MEDS ORDERED: PT OWN MED DRAWER 7, Y5N ONE (13:19)
[2019-02-15] MEDS ORDERED: MAG HYDROX/AL HYDROX/SIMETH 30 ML UNIT-DOSE CUP PO ONE (14:00)
[2019-02-15] MEDS: TAMSULOSIN HCL 0.4 MG CAP PO SCH (17:29)
[2019-02-15] MEDS: SENNOSIDES 8.6MG TABLET (FP) PO PRN (17:37)
[2019-02-15] MEDS: DOCUSATE SODIUM 100 MG CAPSULE (FP) PO PRN (17:37)
[2019-02-15] MEDS: PANTOPRAZOLE SODIUM 40 MG VIAL IVPUSH SCH (21:31)
[2019-02-15] MEDS: BISACODYL 5 MG TABLET.DR (FP) PO PRN (21:31)
[2019-02-15] MEDS: ROSUVASTATIN CA 10 MG TABLET (FP) PO SCH (21:31)
[2019-02-15] MEDS: MONTELUKAST NA 10 MG TABLET PO SCH (21:31)
[2019-02-15] MEDS ORDERED: PHYTONADIONE 10 MG/1 ML AMP IVPB ONE (22:31)
[2019-02-16 04:11] LABS: FIBROSIS SCORE. 0.91 (0.00-0.21); HCV ALPHA 2 MACRO CHART 219 mg/dL (110-276); NECRO.INFLAM ACT.SCORE 0.96 (0.00-0.17); NECROINFLAM. ACTIVITY GRADE A3-Severe activity (.)
[2019-02-16] MEDS: metFORMIN HCL 500 MG TABLET (FP) PO SCH ×2 (06:11→17:26)
[2019-02-16 06:55] LABS: BASO % 1.3 % (0-2.0); EOS % 10.1 % (0-4.5); HEMATOCRIT 37.9 % (35.4-49); HEMOGLOBIN 12.9 GM/dL (11.7-16.9); LYMPH % 31.6 % (8-40); MCH 29.7 pg (25.7-33.7); MCHC 34.1 g/dl (32.0-35.9); MEAN CELL VOLUME 87.3 fl (80-96); MEAN PLT VOLUME 9.2 fl (7.5-11.1); MONO % 12.1 % (3.8-10.2); NEUT % 44.9 % (42.8-82.8); PLATELET COUNT 237 K/MM3 (134-434); RBC 4.34 M/mm3 (4.00-5.60); RDW 13.3 % (11.9-15.9)
[2019-02-16 06:57] LABS: INR 1.06 (0.83-1.09); PROTHROMBIN TIME (PATIENT) 12.5 SEC (9.7-13.0)
[2019-02-16 07:23] LABS: BILIRUBIN,DIRECT 1.3 mg/dL (0.0-0.2)
[2019-02-16 07:29] LABS: ALBUMIN 3.2 g/dl (3.4-5.0); BILIRUBIN,TOTAL 1.6 mg/dL (0.2-1); BLOOD UREA NITROGEN 14.6 mg/dL (7-18); CALCIUM 9.2 mg/dL (8.5-10.1); CREATININE 0.9 mg/dL (0.55-1.3); POTASSIUM 4.1 mmol/L (3.5-5.1); TOT PROT 6.6 g/dl (6.4-8.2)
[2019-02-16] MEDS: PANTOPRAZOLE SODIUM 40 MG VIAL IVPUSH SCH (09:46)
[2019-02-16] MEDS: FUROSEMIDE 20 MG TABLET (FP) PO SCH (09:47)
[2019-02-16] MEDS: BUDESONIDE/FORMETEROL FUMARATE 160/4.5 mcg INHALER IH SCH ×2 (09:47→21:05)
[2019-02-16] MEDS: predniSONE 5 MG TABLET (UD) PO SCH (09:47)
[2019-02-16] MEDS: ALBUTEROL SO4 0.083% IH SOL 2.5 MG/3 ML VIAL.NEB. NEB PRN ×2 (11:18→19:39)
[2019-02-16] MEDS: CEFAZOLIN 2 GM/D5W 2 GM/50 ML ML IVPB SCH ×2 (12:55→20:22)
[2019-02-16] MEDS ORDERED: ceFAZolin 2 GRAM PREMIX BAG IVPB SCH (14:00)
[2019-02-16] MEDS ORDERED: IOHEXOL 300 MG/ML INFUS..BTL IV ONE (14:00)
--- NOTE | 2019-02-16 14:19 | PN ---
Progress Note, Physician Chief Complaint: pateint going to ERCP today had abdominal pain - Current Medication List Current Medications: Active Medications Acetaminophen (Tylenol -) 650 mg PO Q6H PRN PRN Reason: PAIN LEVEL 1-5 Albuterol Sulfate (Ventolin 0.083% Nebulizer Soln -) 1 amp NEB Q4H PRN PRN Reason: ASTHMA Last Admin: 02/16/19 11:18 Dose: 1 amp Bisacodyl (Dulcolax -) 5 mg PO DAILY PRN PRN Reason: CONSTIPATION Last Admin: 02/15/19 21:31 Dose: 5 mg Budesonide/Formoterol Fumarate (Symbicort 160/4.5mcg -) 1 puff IH BID [facility] Last Admin: 02/16/19 09:47 Dose: 1 puff Docusate Sodium (Colace -) 100 mg PO Q8H PRN PRN Reason: CONSTIPATION Last Admin: 02/15/19 17:37 Dose: 100 mg Furosemide (Lasix -) 20 mg PO DAILY [facility] Last Admin: 02/16/19 09:47 Dose: 20 mg Metronidazole (Flagyl 500mg Premixed Ivpb -) 500 mg in 100 mls @ 100 mls/hr IVPB Q8H-IV [facility] Cefazolin Sodium/Dextrose (Ancef 2 Gm Premixed Ivpb -) 2 gm in 50 mls @ 100 mls /hr IVPB Q8H [facility] Last Admin: 02/16/19 12:55 Dose: 100 mls/hr Metformin HCl (Glucophage -) 500 mg PO BID@0700,1630 [facility] Last Admin: 02/16/19 06:11 Dose: Not Given Montelukast Sodium (Singulair -) 10 mg PO HS [facility] Last Admin: 02/15/19 21:31 Dose: 10 mg Pantoprazole Sodium (Protonix Iv) 40 mg IVPUSH DAILY [facility] Last Admin: 02/16/19 09:46 Dose: 40 mg Prednisone (Deltasone -) 5 mg PO DAILY [facility] Last Admin: 02/16/19 09:47 Dose: 5 mg Rosuvastatin Calcium (Crestor -) 10 mg PO HS [facility] Last Admin: 02/15/19 21:31 Dose: 10 mg Senna (Senna -) 2 tab PO HS PRN PRN Reason: CONSTIPATION Last Admin: 02/15/19 17:37 Dose: 2 tab Tamsulosin HCl (Flomax -) 0.8 mg PO DAILY@1800 [facility] Last Admin: 02/15/19 17:29 Dose: 0.8 mg - Objective Vital Signs: Vital Signs Temperature 98.3 F 02/16/19 06:00 Pulse Rate 68 02/16/19 09:00 Respiratory Rate 16 02/16/19 09:00 Blood Pressure 118/58 L 02/16/19 09:00 O2 Sat by Pulse Oximetry (%) 96 02/16/19 09:00 Constitutional: Yes: Calm Cardiovascular: Yes: Regular Rate and Rhythm, S1, S2 Respiratory: Yes: CTA Bilaterally Gastrointestinal: Yes: Soft Labs: CBC, BMP 02/16/19 05:33 02/16/19 05:33 INR, PTT INR 1.06 (0.83-1.09) 02/16/19 05:33 Problem List - Problems (1) Transaminitis Assessment/Plan: elevated bilirubin down trending mrcp done liver normal CBD duct dilatation to go for ERCP today lft elevated Code(s): R74.0 - NONSPEC ELEV OF LEVELS OF TRANSAMNS & LACTIC ACID DEHYDRGNSE (2) Constipation Assessment/Plan: enema Code(s): K59.00 - CONSTIPATION, UNSPECIFIED (3) Hematuria Assessment/Plan: seen by urology cystocopy done 6 months ago negative findings flomax Code(s): R31.9 - HEMATURIA, UNSPECIFIED Qualifiers: Hematuria type: unspecified type Qualified Code(s): R31.9 - Hematuria, unspecified (4) COPD (chronic obstructive pulmonary disease) Code(s): J44.9 - CHRONIC OBSTRUCTIVE PULMONARY DISEASE, UNSPECIFIED Qualifiers: COPD type: unspecified COPD Qualified Code(s): J44.9 - Chronic obstructive pulmonary disease, unspecified
--- NOTE | 2019-02-16 14:42 | PN ---
Progress Note (short form) - Note Progress Note: GI Procedure Note ( covering the [facility] service): Before the procedure was undertaken an informed consent was obtained after I informed Mr. Bravo of the potential for such complications as perforation, hemorrhage and pain, vomiting and multiorgan failure associated with ERCP induced pancreatitis. Pre-ERCP Kefzol and Flagyl were given. ERCP discovered two CBD stones which were extracted after a sphincterotomy was performed. Please avoid anticoagulants and observe for pancreatitits. If no pancreatitis ensues can proceed with cholecystectomy. Dr Jiménez harmony be covering this weekend. Please call him as needed.
[2019-02-16] MEDS ORDERED: LACTATED RINGERS SOLUTION 1,000 ML/1,000 ML INFUS.BAG IV SCH ×2 (14:45→18:45)
[2019-02-16] MEDS: TAMSULOSIN HCL 0.4 MG CAP PO SCH (17:26)
[2019-02-16] MEDS: ROSUVASTATIN CA 10 MG TABLET (FP) PO SCH (21:05)
[2019-02-16] MEDS: BISACODYL 5 MG TABLET.DR (FP) PO PRN (21:05)
[2019-02-16] MEDS: MONTELUKAST NA 10 MG TABLET PO SCH (21:05)
[2019-02-16] MEDS: DOCUSATE SODIUM 100 MG CAPSULE (FP) PO PRN (21:05)
[2019-02-16] MEDS: SENNOSIDES 8.6MG TABLET (FP) PO PRN (21:05)
[2019-02-17] MEDS: LACTATED RINGERS SOLUTION 1,000 ML/1,000 ML INFUS.BAG IV SCH ×3 (00:25→10:30)
[2019-02-17] MEDS: CEFAZOLIN 2 GM/D5W 2 GM/50 ML ML IVPB SCH ×3 (05:05→20:17)
[2019-02-17] MEDS: metFORMIN HCL 500 MG TABLET (FP) PO SCH ×2 (06:25→17:16)
[2019-02-17 07:47] LABS: BASO % 0.9 % (0-2.0); EOS % 2.9 % (0-4.5); HEMATOCRIT 35.7 % (35.4-49); HEMOGLOBIN 12.1 GM/dL (11.7-16.9); LYMPH % 21.8 % (8-40); MCH 30.1 pg (25.7-33.7); MEAN CELL VOLUME 88.5 fl (80-96); MEAN PLT VOLUME 9.3 fl (7.5-11.1); MONO % 9.7 % (3.8-10.2); NEUT % 64.7 % (42.8-82.8); PLATELET COUNT 221 K/MM3 (134-434); RBC 4.03 M/mm3 (4.00-5.60); RDW 13.7 % (11.9-15.9); WHITE BLOOD COUNT 9.3 K/mm3 (4.0-10.0)
[2019-02-17 07:56] LABS: BILIRUBIN,DIRECT 0.9 mg/dL (0.0-0.2)
[2019-02-17 08:07] LABS: BILIRUBIN,TOTAL 1.3 mg/dL (0.2-1); BLOOD UREA NITROGEN 9.9 mg/dL (7-18); CALCIUM 9.2 mg/dL (8.5-10.1); CREATININE 0.8 mg/dL (0.55-1.3); POTASSIUM 4.1 mmol/L (3.5-5.1)
--- NOTE | 2019-02-17 08:40 | PN ---
Progress Note, Physician Chief Complaint: Gross hematuria History of Present Illness: NAD in bed self ambulatory seen by GI for abn liver enzymes ERCP- 2 gallstones removed Plan for cholecystectomy on Tuesday - Current Medication List Current Medications: Active Medications Acetaminophen (Tylenol -) 650 mg PO Q6H PRN PRN Reason: PAIN LEVEL 1-5 Albuterol Sulfate (Ventolin 0.083% Nebulizer Soln -) 1 amp NEB Q4H PRN PRN Reason: ASTHMA Last Admin: 02/16/19 19:39 Dose: 1 amp Bisacodyl (Dulcolax -) 5 mg PO DAILY PRN PRN Reason: CONSTIPATION Last Admin: 02/16/19 21:05 Dose: 5 mg Budesonide/Formoterol Fumarate (Symbicort 160/4.5mcg -) 1 puff IH BID [facility] Last Admin: 02/16/19 21:05 Dose: 1 puff Docusate Sodium (Colace -) 100 mg PO Q8H PRN PRN Reason: CONSTIPATION Last Admin: 02/16/19 21:05 Dose: 100 mg Furosemide (Lasix -) 20 mg PO DAILY [facility] Last Admin: 02/16/19 09:47 Dose: 20 mg Metronidazole (Flagyl 500mg Premixed Ivpb -) 500 mg in 100 mls @ 100 mls/hr IVPB Q8H-IV [facility] Last Admin: 02/17/19 02:16 Dose: 100 mls/hr Cefazolin Sodium/Dextrose (Ancef 2 Gm Premixed Ivpb -) 2 gm in 50 mls @ 100 mls /hr IVPB Q8H [facility] Last Admin: 02/17/19 05:05 Dose: 100 mls/hr Lactated Ringer's (Lactated Ringers Solution) 1,000 ml in 1,000 mls @ 150 mls/ hr IV ASD[facility] Stop: 02/17/19 08:45 Last Admin: 02/17/19 05:05 Dose: 150 mls/hr Lactated Ringer's (Lactated Ringers Solution) 1,000 ml in 1,000 mls @ 125 mls/ hr IV ASDIR [facility] Metformin HCl (Glucophage -) 500 mg PO BID@0700,1630 [facility] Last Admin: 02/17/19 06:25 Dose: 500 mg Montelukast Sodium (Singulair -) 10 mg PO HS [facility] Last Admin: 02/16/19 21:05 Dose: 10 mg Pantoprazole Sodium (Protonix Iv) 40 mg IVPUSH DAILY [facility] Last Admin: 02/16/19 09:46 Dose: 40 mg Prednisone (Deltasone -) 5 mg PO DAILY [facility] Last Admin: 02/16/19 09:47 Dose: 5 mg Rosuvastatin Calcium (Crestor -) 10 mg PO HS [facility] Last Admin: 02/16/19 21:05 Dose: 10 mg Senna (Senna -) 2 tab PO HS PRN PRN Reason: CONSTIPATION Last Admin: 02/16/19 21:05 Dose: 2 tab Tamsulosin HCl (Flomax -) 0.8 mg PO DAILY@1800 [facility] Last Admin: 02/16/19 17:26 Dose: 0.8 mg - Objective Vital Signs: Vital Signs Temperature 98.3 F 02/17/19 04:00 Pulse Rate 67 02/17/19 04:00 Respiratory Rate 20 02/17/19 04:00 Blood Pressure 152/80 02/17/19 04:00 O2 Sat by Pulse Oximetry (%) 95 02/16/19 21:00 Constitutional: Yes: Well Nourished, No Distress, Calm Cardiovascular: Yes: Regular Rate and Rhythm Respiratory: Yes: Regular Gastrointestinal: Yes: Normal Bowel Sounds, Soft, Abdomen, Obese Genitourinary: Yes: WNL Musculoskeletal: Yes: WNL Extremities: Yes: WNL Edema: No Peripheral Pulses WNL: Yes Neurological: Yes: Alert, Oriented Psychiatric: Yes: Alert, Oriented Labs: CBC, BMP 02/17/19 06:22 02/17/19 06:22 INR, PTT INR 1.06 (0.83-1.09) 02/16/19 05:33 Problem List - Problems (1) DM (diabetes mellitus) Assessment/Plan: -Recheck A1c, last recorded A1c in EMR 7.0 in 2017 -[facility]-d/c -Diabetic low sodium diet -ISS -Could be 2/2 to chronic prednisone usage Code(s): E11.9 - TYPE 2 DIABETES MELLITUS WITHOUT COMPLICATIONS Qualifiers: Diabetes mellitus type: type 2 Diabetes mellitus fpc insulin use: 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 Diabetes mellitus complication status: with other specified complication Qualified Code(s): E11.69 - Type 2 diabetes mellitus with other specified complication; 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 (2) COPD (chronic obstructive pulmonary disease) Assessment/Plan: -Continue home meds-prednisone,symbicort and montelukast -Bronchodilators -Nasal O2 PRN to keep Spo2>90% Code(s): J44.9 - CHRONIC OBSTRUCTIVE PULMONARY DISEASE, UNSPECIFIED Qualifiers: COPD type: unspecified COPD Qualified Code(s): J44.9 - Chronic obstructive pulmonary disease, unspecified (3) Transaminitis Assessment/Plan: -U/S abd+ CT abd showed no liver abnormality -GI consult -Went for ERCP yesterday-ERCP discovered two CBD stones which were extracted after a sphincterotomy -Liver enzymes trending down -On clear liquid diet -Pancreatic enzymes normal -Cholecystectomy as per GI Code(s): R74.0 - NONSPEC ELEV OF LEVELS OF TRANSAMNS & LACTIC ACID DEHYDRGNSE (4) Hematuria Assessment/Plan: -None seen in UA -UC pending -Seen by Urology-no further intervention recommended -Cystoscopy done within past 6 months was normal. -H/H stable Code(s): R31.9 - HEMATURIA, UNSPECIFIED Qualifiers: Hematuria type: unspecified type Qualified Code(s): R31.9 - Hematuria, unspecified (5) Constipation Assessment/Plan: -On dulcolax, colace and senna -Fleet Enema x 1 Problems reviewed: Yes Code(s): K59.00 - CONSTIPATION, UNSPECIFIED Assessment/Plan see problem list
[2019-02-17] MEDS: predniSONE 5 MG TABLET (UD) PO SCH (10:29)
[2019-02-17] MEDS: BISACODYL 5 MG TABLET.DR (FP) PO PRN (10:29)
[2019-02-17] MEDS: FUROSEMIDE 20 MG TABLET (FP) PO SCH (10:29)
[2019-02-17] MEDS: PANTOPRAZOLE SODIUM 40 MG VIAL IVPUSH SCH (10:29)
[2019-02-17] MEDS: DOCUSATE SODIUM 100 MG CAPSULE (FP) PO PRN (10:29)
--- NOTE | 2019-02-17 10:38 | PN ---
Progress Note (short form) - Note Progress Note: Only complaint now is constipation. LFTs still elevated but improved. Hepatic Panel Total Bilirubin 1.3 mg/dL (0.2-1) H 02/17/19 06:22 Direct Bilirubin 0.9 mg/dL (0.0-0.2) H 02/17/19 06:22 AST 103 U/L (15-37) H 02/17/19 06:22 ALT 305 U/L (13-61) H 02/17/19 06:22 Alkaline Phosphatase 235 U/L (45-117) H 02/17/19 06:22 Albumin 3.0 g/dl (3.4-5.0) L 02/17/19 06:22 Will no longer follow unless recalled. Case d/w Ashanti Carl.
[2019-02-17] MEDS: BUDESONIDE/FORMETEROL FUMARATE 160/4.5 mcg INHALER IH SCH ×2 (11:00→21:41)
[2019-02-17] MEDS: TAMSULOSIN HCL 0.4 MG CAP PO SCH (17:16)
[2019-02-17] MEDS: ROSUVASTATIN CA 10 MG TABLET (FP) PO SCH (21:41)
[2019-02-17] MEDS: MONTELUKAST NA 10 MG TABLET PO SCH (21:41)
[2019-02-17] MEDS: ALBUTEROL SO4 0.083% IH SOL 2.5 MG/3 ML VIAL.NEB. NEB PRN (21:59)
[2019-02-17] MEDS ORDERED: LIDOCAINE VISCOUS 2% ORAL/TOP 20 ML UNIT-DOSE CUP MM PRN (22:09)
[2019-02-18] MEDS ORDERED: PT OWN MED DRAWER 7, Y5N ONE (04:52)
[2019-02-18] MEDS: CEFAZOLIN 2 GM/D5W 2 GM/50 ML ML IVPB SCH ×3 (04:57→20:14)
[2019-02-18 06:28] LABS: ALBUMIN 3.4 g/dl (3.4-5.0); BILIRUBIN,DIRECT 0.9 mg/dL (0.0-0.2); BILIRUBIN,TOTAL 1.3 mg/dL (0.2-1); TOT PROT 6.7 g/dl (6.4-8.2)
[2019-02-18] MEDS: metFORMIN HCL 500 MG TABLET (FP) PO SCH ×2 (06:49→17:04)
--- NOTE | 2019-02-18 07:04 | PN ---
Progress Note, Physician Chief Complaint: s/p ERCP under general anesthesia History of Present Illness: post op day one - Current Medication List Current Medications: Active Medications Acetaminophen (Tylenol -) 650 mg PO Q6H PRN PRN Reason: PAIN LEVEL 1-5 Last Admin: 02/17/19 21:41 Dose: 650 mg Albuterol Sulfate (Ventolin 0.083% Nebulizer Soln -) 1 amp NEB Q4H PRN PRN Reason: ASTHMA Last Admin: 02/17/19 21:59 Dose: 1 amp Bisacodyl (Dulcolax -) 5 mg PO DAILY PRN PRN Reason: CONSTIPATION Last Admin: 02/17/19 10:29 Dose: 5 mg Budesonide/Formoterol Fumarate (Symbicort 160/4.5mcg -) 1 puff IH BID [facility] Last Admin: 02/17/19 21:41 Dose: 1 puff Docusate Sodium (Colace -) 100 mg PO Q8H PRN PRN Reason: CONSTIPATION Last Admin: 02/17/19 10:29 Dose: 100 mg Furosemide (Lasix -) 20 mg PO DAILY [facility] Last Admin: 02/17/19 10:29 Dose: 20 mg Metronidazole (Flagyl 500mg Premixed Ivpb -) 500 mg in 100 mls @ 100 mls/hr IVPB Q8H-IV BRIT Last Admin: 02/18/19 02:00 Dose: 100 mls/hr Cefazolin Sodium/Dextrose (Ancef 2 Gm Premixed Ivpb -) 2 gm in 50 mls @ 100 mls /hr IVPB Q8H [facility] Last Admin: 02/18/19 04:57 Dose: 100 mls/hr Lactated Ringer's (Lactated Ringers Solution) 1,000 ml in 1,000 mls @ 125 mls/ hr IV ASDIR [facility] Last Admin: 02/17/19 10:30 Dose: 125 mls/hr Lidocaine HCl (Xylocaine 2% Viscous Oral -) 20 ml MM Q6HPO PRN PRN Reason: ORAL PAIN/MOUTH SORES Last Admin: 02/17/19 22:36 Dose: 20 ml Metformin HCl (Glucophage -) 500 mg PO BID@0700,1630 [facility] Last Admin: 02/18/19 06:49 Dose: 500 mg Montelukast Sodium (Singulair -) 10 mg PO HS [facility] Last Admin: 10/05/19 21:41 Dose: 10 mg Pantoprazole Sodium (Protonix Iv) 40 mg IVPUSH DAILY [facility] Last Admin: 02/17/19 10:29 Dose: 40 mg Prednisone (Deltasone -) 5 mg PO DAILY [facility] Last Admin: 02/17/19 10:29 Dose: 5 mg Rosuvastatin Calcium (Crestor -) 10 mg PO HS [facility] Last Admin: 02/17/19 21:41 Dose: 10 mg Senna (Senna -) 2 tab PO HS PRN PRN Reason: CONSTIPATION Last Admin: 02/16/19 21:05 Dose: 2 tab Tamsulosin HCl (Flomax -) 0.8 mg PO DAILY@1800 [facility] Last Admin: 02/17/19 17:16 Dose: 0.8 mg - Objective Vital Signs: Vital Signs Temperature 98.1 F 02/18/19 05:57 Pulse Rate 86 02/18/19 05:57 Respiratory Rate 20 02/18/19 05:57 Blood Pressure 150/79 02/18/19 05:57 O2 Sat by Pulse Oximetry (%) 98 02/17/19 21:00 Constitutional: Yes: Well Nourished Cardiovascular: Yes: WNL Respiratory: Yes: WNL Gastrointestinal: Yes: WNL Labs: CBC, BMP 02/17/19 06:22 02/17/19 06:22 INR, PTT INR 1.06 (0.83-1.09) 02/16/19 05:33 Assessment/Plan No adverse anesthetic complications, nausea vomiting pain controlled, dept of anesthesiology will sign off care at this time
[2019-02-18] MEDS: PANTOPRAZOLE SODIUM 40 MG VIAL IVPUSH SCH (09:45)
[2019-02-18] MEDS: LACTATED RINGERS SOLUTION 1,000 ML/1,000 ML INFUS.BAG IV SCH (09:45)
[2019-02-18] MEDS: predniSONE 5 MG TABLET (UD) PO SCH (09:46)
[2019-02-18] MEDS: BUDESONIDE/FORMETEROL FUMARATE 160/4.5 mcg INHALER IH SCH ×2 (09:46→21:41)
[2019-02-18] MEDS: FUROSEMIDE 20 MG TABLET (FP) PO SCH (09:46)
--- NOTE | 2019-02-18 10:16 | PN ---
Progress Note, Physician Chief Complaint: Gross hematuria History of Present Illness: NAD in bed self ambulatory seen by GI for abn liver enzymes ERCP- 2 gallstones removed Plan for cholecystectomy on Tuesday Had BM overnight-feels better - Current Medication List Current Medications: Active Medications Acetaminophen (Tylenol -) 650 mg PO Q6H PRN PRN Reason: PAIN LEVEL 1-5 Last Admin: 02/17/19 21:41 Dose: 650 mg Albuterol Sulfate (Ventolin 0.083% Nebulizer Soln -) 1 amp NEB Q4H PRN PRN Reason: ASTHMA Last Admin: 02/17/19 21:59 Dose: 1 amp Bisacodyl (Dulcolax -) 5 mg PO DAILY PRN PRN Reason: CONSTIPATION Last Admin: 02/17/19 10:29 Dose: 5 mg Budesonide/Formoterol Fumarate (Symbicort 160/4.5mcg -) 1 puff IH BID [facility] Last Admin: 02/18/19 09:46 Dose: 1 puff Docusate Sodium (Colace -) 100 mg PO Q8H PRN PRN Reason: CONSTIPATION Last Admin: 02/17/19 10:29 Dose: 100 mg Furosemide (Lasix -) 20 mg PO DAILY BRIT Last Admin: 02/18/19 09:46 Dose: 20 mg Metronidazole (Flagyl 500mg Premixed Ivpb -) 500 mg in 100 mls @ 100 mls/hr IVPB Q8H-IV BRIT Last Admin: 02/18/19 09:46 Dose: 100 mls/hr Cefazolin Sodium/Dextrose (Ancef 2 Gm Premixed Ivpb -) 2 gm in 50 mls @ 100 mls /hr IVPB Q8H BRIT Last Admin: 02/18/19 04:57 Dose: 100 mls/hr Lactated Ringer's (Lactated Ringers Solution) 1,000 ml in 1,000 mls @ 125 mls/ hr IV ASDIR BRIT Last Admin: 02/18/19 09:45 Dose: 125 mls/hr Lidocaine HCl (Xylocaine 2% Viscous Oral -) 20 ml MM Q6HPO PRN PRN Reason: ORAL PAIN/MOUTH SORES Last Admin: 02/17/19 22:36 Dose: 20 ml Metformin HCl (Glucophage -) 500 mg PO BID@0700,1630 [facility] Last Admin: 02/18/19 06:49 Dose: 500 mg Montelukast Sodium (Singulair -) 10 mg PO HS [facility] Last Admin: 02/17/19 21:41 Dose: 10 mg Pantoprazole Sodium (Protonix Iv) 40 mg IVPUSH DAILY [facility] Last Admin: 02/18/19 09:45 Dose: 40 mg Prednisone (Deltasone -) 5 mg PO DAILY [facility] Last Admin: 02/18/19 09:46 Dose: 5 mg Rosuvastatin Calcium (Crestor -) 10 mg PO [facility] Last Admin: 02/17/19 21:41 Dose: 10 mg Senna (Senna -) 2 tab PO HS PRN PRN Reason: CONSTIPATION Last Admin: 02/16/19 21:05 Dose: 2 tab Tamsulosin HCl (Flomax -) 0.8 mg PO DAILY@1800 [facility] Last Admin: 02/17/19 17:16 Dose: 0.8 mg - Objective Vital Signs: Vital Signs Temperature 98.1 F 02/18/19 05:57 Pulse Rate 86 02/18/19 05:57 Respiratory Rate 20 02/18/19 05:57 Blood Pressure 150/79 02/18/19 05:57 O2 Sat by Pulse Oximetry (%) 98 02/17/19 21:00 Constitutional: Yes: Well Nourished, No Distress, Calm Cardiovascular: Yes: Regular Rate and Rhythm Respiratory: Yes: Regular Gastrointestinal: Yes: WNL, Normal Bowel Sounds, Soft, Abdomen, Obese Genitourinary: Yes: WNL Musculoskeletal: Yes: WNL Extremities: Yes: WNL Edema: No Peripheral Pulses WNL: Yes Neurological: Yes: Alert, Oriented Psychiatric: Yes: Alert, Oriented Labs: CBC, BMP 02/17/19 06:22 02/17/19 06:22 INR, PTT INR 1.06 (0.83-1.09) 02/16/19 05:33 Problem List - Problems (1) DM (diabetes mellitus) Assessment/Plan: -Recheck A1c, last recorded A1c in EMR 7.0 in 2017 -[facility]-d/c -Diabetic low sodium diet -ISS -Could be 2/2 to chronic prednisone usage Problems reviewed: Yes Code(s): E11.9 - TYPE 2 DIABETES MELLITUS WITHOUT COMPLICATIONS Qualifiers: Diabetes mellitus type: type 2 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: with snf use Diabetes mellitus complication status: with other specified complication Qualified Code(s): E11.69 - Type 2 diabetes mellitus with other specified complication; Z79.4 - alf (current) use of insulin (2) COPD (chronic obstructive pulmonary disease) Assessment/Plan: -Continue home meds-prednisone,symbicort and montelukast -Bronchodilators -Nasal O2 PRN to keep Spo2>90% Problems reviewed: Yes Code(s): J44.9 - CHRONIC OBSTRUCTIVE PULMONARY DISEASE, UNSPECIFIED Qualifiers: COPD type: unspecified COPD Qualified Code(s): J44.9 - Chronic obstructive pulmonary disease, unspecified (3) Transaminitis Assessment/Plan: -U/S abd+ CT abd showed no liver abnormality -GI consult -Went for ERCP yesterday-ERCP discovered two CBD stones which were extracted after a sphincterotomy -Liver enzymes trending down -On clear liquid diet -Pancreatic enzymes normal -Cholecystectomy as per GI on Tuesday Problems reviewed: Yes Code(s): R74.0 - NONSPEC ELEV OF LEVELS OF TRANSAMNS & LACTIC ACID DEHYDRGNSE (4) Hematuria Assessment/Plan: -None seen in UA -UC negative -Seen by Urology-no further intervention recommended -Cystoscopy done within past 6 months was normal. -H/H stable Problems reviewed: Yes Code(s): R31.9 - HEMATURIA, UNSPECIFIED Qualifiers: Hematuria type: unspecified type Qualified Code(s): R31.9 - Hematuria, unspecified (5) Constipation Code(s): K59.00 - CONSTIPATION, UNSPECIFIED Assessment/Plan see problem list Pt is medically stable and cleared for cholecystectomy with acceptable OR risks.
[2019-02-18] MEDS ORDERED: BENZOCAINE/MENTH/CETYLPYRD CL 1 EACH LOZENGE MM PRN (10:56)
[2019-02-18] MEDS: TAMSULOSIN HCL 0.4 MG CAP PO SCH (17:05)
[2019-02-18] MEDS: ALBUTEROL SO4 0.083% IH SOL 2.5 MG/3 ML VIAL.NEB. NEB PRN (19:46)
[2019-02-18] MEDS: MONTELUKAST NA 10 MG TABLET PO SCH (21:40)
[2019-02-18] MEDS: ROSUVASTATIN CA 10 MG TABLET (FP) PO SCH (21:40)
[2019-02-19] MEDS: CEFAZOLIN 2 GM/D5W 2 GM/50 ML ML IVPB SCH (05:00)
[2019-02-19] MEDS: LACTATED RINGERS SOLUTION 1,000 ML/1,000 ML INFUS.BAG IV SCH ×2 (05:05→10:01)
[2019-02-19] MEDS: metFORMIN HCL 500 MG TABLET (FP) PO SCH ×2 (06:05→17:52)
[2019-02-19 07:22] LABS: AMYLASE 53 U/L (25-115); LIPASE 107 U/L (73-393)
[2019-02-19 07:29] LABS: ALBUMIN 3.4 g/dl (3.4-5.0); BILIRUBIN,DIRECT 0.9 mg/dL (0.0-0.2); BILIRUBIN,TOTAL 1.4 mg/dL (0.2-1); TOT PROT 6.8 g/dl (6.4-8.2)
--- NOTE | 2019-02-19 08:20 | CONSULT ---
- Consultation REQUESTING PROVIDER: CONSULT REQUEST: We have been asked to surgically evaluate this patient for cholelithiasis. PCP:David Gaytan HISTORY OF PRESENT ILLNESS: 73 y/o M w/ PMHx HTN, HLD, COPD, DM, BPH, and CHF admitted 02/12 with ?worsening hematuria over the course of 3days. Pt reports h/o prostate cancer which is being treated with casodex BID. Endorses "brown urine" beginning on tuesday which continued to get darker over the following days. Pt also reports significant constipation and inability to have BMs at home. Denies abdominal pain, fever/chills/N/V/D. PMHx: as above PSHx: cataracts Home Medications Medication Instructions Recorded Aspirin [ASA -] 81 mg PO DAILY #0 tab.chew 07/31/14 Rosuvastatin [Crestor -] 10 mg PO DAILY 12/05/16 Furosemide [Lasix -] 20 mg PO DAILY 10/09/17 Albuterol 0.083% Nebulizer Jacki 1 neb NEB Q4H PRN #20 vial 10/25/17 [Ventolin 0.083% Nebulizer Soln -] Albuterol Sulfate Inhaler - 1 - 2 inh PO Q4H PRN #1 inhaler 10/25/17 [Ventolin HFA Inhaler -] Alfuzosin HCl [Alfuzosin HCl ER] 10 mg PO DAILY 02/02/18 Budesonide/Formeterol Fumarate 1 inh PO BID 02/02/18 [SYMBICORT 160/4.5mcg -] Bicalutamide [Casodex] 50 mg PO BID 12/25/18 Montelukast Na [Singulair -] 10 mg PO HS 02/12/19 Prednisone 5 mg PO DAILY 02/12/19 Allergies Allergy/AdvReac Type Severity Reaction Status Date / Time ibuprofen [From Advil] Allergy Unknown Vomiting Verified 08/12/18 12:54 azithromycin [From Zithromax] AdvReac Mild Vomiting Verified 08/12/18 12:54 REVIEW OF SYSTEMS: CONSTITUTIONAL: Absent: fever, chills CARDIOVASCULAR: Absent: chest pain RESPIRATORY: Absent: cough, shortness of breath GASTROINTESTINAL: Absent: abdominal pain PHYSICAL EXAM: GENERAL: Awake, alert, and fully oriented, in no acute distress. HEAD: Normal with no signs of trauma. LUNGS: Unlabored on RA. No accessory muscle use. ABDOMEN: Soft, nontender, not distended, normoactive bowel sounds, no guarding, no rebound. Vital Signs Temperature 97.9 F 02/19/19 06:00 Pulse Rate 67 02/19/19 06:00 Respiratory Rate 18 02/19/19 06:00 Blood Pressure 144/58 L 02/19/19 06:00 O2 Sat by Pulse Oximetry (%) 97 02/18/19 21:00 Lab Results WBC 9.3 K/mm3 (4.0-10.0) 02/17/19 06:22 RBC 4.03 M/mm3 (4.00-5.60) 02/17/19 06:22 Hgb 12.1 GM/dL (11.7-16.9) 02/17/19 06:22 Hct 35.7 % (35.4-49) 02/17/19 06:22 MCV 88.5 fl (80-96) 02/17/19 06:22 MCHC 34.0 g/dl (32.0-35.9) 02/17/19 06:22 RDW 13.7 % (11.9-15.9) 02/17/19 06:22 Plt Count 221 K/MM3 (134-434) 02/17/19 06:22 Sodium 143 mmol/L (136-145) 02/17/19 06:22 Potassium 4.1 mmol/L (3.5-5.1) 02/17/19 06:22 Chloride 107 mmol/L (98-107) 02/17/19 06:22 Carbon Dioxide 30 mmol/L (21-32) 02/17/19 06:22 Anion Gap 6 MMOL/L (8-16) L 02/17/19 06:22 BUN 9.9 mg/dL (7-18) 02/17/19 06:22 Creatinine 0.8 mg/dL (0.55-1.3) 02/17/19 06:22 Random Glucose 93 mg/dL (74-106) 02/17/19 06:22 Calcium 9.2 mg/dL (8.5-10.1) 02/17/19 06:22 Blood Type A POSITIVE 02/12/19 13:30 Antibody Screen Negative 02/12/19 13:30 INR 1.06 (0.83-1.09) 02/16/19 05:33 CT a/p (02/12): Interval development of choledocholithiasis is seen in comparison to 2013 CT scan. Associated development of mild extrahepatic and minimal intrahepatic biliary tract dilitation is noted. Cholelithiasis is again noted. No ct evidence of acute cholecystitis. MRCP (02/14): Cholelithiasis with no definite MRI evidence of acute cholecystitis. Mild gallbladder wall thickening could be secondary to chronic cholecystitis. Choledocholithiasis with extrahepatic and intrahepatic biliary ductal dilitation. A/P: 73 y/o M w/ PMHx HTN, HLD, COPD, DM, BPH, and CHF admitted 02/12 with ? worsening hematuria over the course of 3days. Pt found to have Choledocholithiasis/cholelithiasis, s/p ERCP on 02/16 with 2 CBD stones extracted after sphincterotomy. LFTS trending down. Pt NPO for OR today to laparoscopic cholecystectomy, possible open. d/w attending Dr Eckert
--- NOTE | 2019-02-19 09:05 | PN ---
Progress Note (short form) - Note Progress Note: Attending Surgeon Patient seen and evaluated; chart reviewed; for lap evan possible open and open repair of umbilical hernia; r/b/t/a's d/w the patient and informed consent obtained. Osvaldo Eckert MD FACS
[2019-02-19] MEDS ORDERED: fentaNYL CITRATE 250 MCG/5 ML VIAL ONE (09:09)
[2019-02-19] MEDS ORDERED: PROPOFOL 20 ML ONE ×2 (09:09→11:31)
[2019-02-19] MEDS ORDERED: SUCCINYLCHOLINE CHLORIDE 200 MG/10 ML SYRINGE ONE (09:09)
[2019-02-19] MEDS ORDERED: ROCURONIUM BROMIDE 50 MG/5 ML SYRINGE ONE (09:10)
[2019-02-19] MEDS ORDERED: MIDAZOLAM HCL 2 MG/2 ML SINGLE DOSE VIAL ONE (09:10)
[2019-02-19] MEDS ORDERED: SEVOFLURANE 250 ML BTL ONE (09:15)
[2019-02-19] MEDS ORDERED: BUPIVACAINE HCL/PF 0.5% (5 MG/ML) 30 ML VIAL IJ ONE ×4 (09:21→11:02)
[2019-02-19] MEDS ORDERED: LIDOCAINE HCL/PF 2% SDV 5ML VIAL ONE (09:50)
[2019-02-19] MEDS ORDERED: ePHEDrine SULFATE 50 MG/1 ML AMPULE ONE (09:50)
[2019-02-19] MEDS: predniSONE 5 MG TABLET (UD) PO SCH (10:00)
[2019-02-19] MEDS: FUROSEMIDE 20 MG TABLET (FP) PO SCH (10:00)
[2019-02-19] MEDS ORDERED: DEXAMETHASONE SOD PHOSPHATE 4 MG/1 ML VIAL ONE (10:56)
[2019-02-19] MEDS ORDERED: NEOSTIGMINE METHYLSULFATE 0.5 MG/ML - 10 ML MDV ONE (11:04)
[2019-02-19] MEDS: BUDESONIDE/FORMETEROL FUMARATE 160/4.5 mcg INHALER IH SCH ×2 (11:11→21:54)
[2019-02-19] MEDS: PANTOPRAZOLE SODIUM 40 MG VIAL IVPUSH SCH (11:11)
[2019-02-19] MEDS ORDERED: GLYCOPYRROLATE 0.2 MG/1 ML VIAL ONE (11:28)
--- NOTE | 2019-02-19 11:31 | OP ---
Operative Note - Note: Operative Date: 02/19/19 Pre-Operative Diagnosis: cholelithiasis/choledocholithiasis Operation: laparoscopic cholecystectomy and open repai umbilical hernia Findings: cholelithiasis/umbilical hernia Surgeon: Osvaldo Eckert Hedis Nurse: Regina Dunne Anesthesiologist/EXHAUST WORKER: Raleigh Qureshi Anesthesia: General Specimens Removed: gallbladder and contents Estimated Blood Loss (mls): 25 Drains & Tubes with Location: 10 mm JANEEN in gallbladder fossa
[2019-02-19] MEDS ORDERED: ONDANSETRON 4 MG/2 ML VIAL IVPUSH PRN (12:00)
[2019-02-19] MEDS ORDERED: LACTATED RINGERS SOLUTION 1,000 ML IV SCH (12:00)
--- NOTE | 2019-02-19 12:04 | SURG ---
Surgery Senior Technologist Note Senior Technologist: Regina Dunne PA-C Date of Service: 02/19/19 Diagnosis: cholelithiasis/choledocholithiasis Procedure: laparoscopic cholecystectomy and open repair of umbilical hernia I was present for the entirety of the operative procedure. For further detail, please refer to operative report. Visit type - Case Type Case Type: ED Admission - Emergency Emergency Visit: Yes ED Registration Date: 02/13/19 Care time: The patient presented to the Emergency Department on the above date and was hospitalized for further evaluation of their emergent condition. - New patient This patient is new to me today: Yes Date on this admission: 02/19/19
[2019-02-19] MEDS ORDERED: DOCUSATE SODIUM 100 MG CAPSULE (FP) PO PRN (12:35)
[2019-02-19] MEDS ORDERED: LIDOCAINE VISCOUS 2% ORAL/TOP 20 ML UNIT-DOSE CUP MM PRN (12:35)
[2019-02-19] MEDS ORDERED: BISACODYL 5 MG TABLET.DR (FP) PO PRN (12:35)
[2019-02-19] MEDS ORDERED: BENZOCAINE/MENTH/CETYLPYRD CL 1 EACH LOZENGE MM PRN (12:35)
[2019-02-19] MEDS ORDERED: SENNOSIDES 8.6MG TABLET (FP) PO PRN (12:35)
[2019-02-19] MEDS: SODIUM CHLORIDE 1,000 ML IV SCH ×2 (14:26→23:22)
[2019-02-19] MEDS ORDERED: PT OWN MED DRAWER 7, Y5N ONE (14:43)
--- NOTE | 2019-02-19 14:43 | PN ---
Progress Note, Physician Chief Complaint: patient just came back from OR awake alert ice chips complains of distended abdomen - Current Medication List Current Medications: Active Medications Acetaminophen (Tylenol -) 650 mg PO Q6H PRN PRN Reason: PAIN LEVEL 1-5 Albuterol Sulfate (Ventolin 0.083% Nebulizer Soln -) 1 amp NEB Q4H PRN PRN Reason: ASTHMA Benzocaine/Menthol (Cepacol Lozenge -) 1 each MM PRN PRN PRN Reason: SORE THROAT Bisacodyl (Dulcolax -) 5 mg PO DAILY PRN PRN Reason: CONSTIPATION Budesonide/Formoterol Fumarate (Symbicort 160/4.5mcg -) 1 puff IH BID [facility] Docusate Sodium (Colace -) 100 mg PO Q8H PRN PRN Reason: CONSTIPATION Fentanyl (Sublimaze Injection -) 50 mcg IVPUSH [id number] PRN PRN Reason: PAIN-PACU ORDER X 4 DOSES ONLY Last Admin: 02/19/19 12:20 Dose: 50 mcg Furosemide (Lasix -) 20 mg PO DAILY [facility] Lactated Ringer's (Lactated Ringers Solution) 1,000 mls @ 125 mls/hr IV ASDIR [facility] Last Admin: 02/19/19 13:40 Dose: 0 mls Sodium Chloride (Normal Saline -) 1,000 mls @ 100 mls/hr IV ASDIR [facility] Last Admin: 02/19/19 14:26 Dose: Not Given Lidocaine HCl (Xylocaine 2% Viscous Oral -) 20 ml MM Q6HPO PRN PRN Reason: ORAL PAIN/MOUTH SORES Metformin HCl (Glucophage -) 500 mg PO BID@0700,1630 [facility] Montelukast Sodium (Singulair -) 10 mg PO HS [facility] Ondansetron HCl (Zofran Injection) 4 mg IVPUSH Q6H PRN PRN Reason: NAUSEA AND/OR VOMITING Pantoprazole Sodium (Protonix Iv) 40 mg IVPUSH DAILY [facility] Prednisone (Deltasone -) 5 mg PO DAILY [facility] Rosuvastatin Calcium (Crestor -) 10 mg PO HS [facility] Senna (Senna -) 2 tab PO HS PRN PRN Reason: CONSTIPATION Tamsulosin HCl (Flomax -) 0.8 mg PO DAILY@1800 [facility] - Objective Vital Signs: Vital Signs Temperature 98.2 F 1007/19 13:40 Pulse Rate 74 02/19/19 13:40 Respiratory Rate 16 02/19/19 13:40 Blood Pressure 146/88 02/19/19 13:40 O2 Sat by Pulse Oximetry (%) 97 02/19/19 13:40 Constitutional: Yes: Calm Cardiovascular: Yes: Regular Rate and Rhythm, S1, S2 Respiratory: Yes: CTA Bilaterally Gastrointestinal: Yes: Distention, Other (midline dressing nad RUQ dressing with JANEEN drain serosangious drainage) Extremities: Yes: Other (venodynes) Neurological: Yes: Alert, Oriented Labs: CBC, BMP 02/17/19 06:22 02/17/19 06:22 INR, PTT INR 1.06 (0.83-1.09) 02/16/19 05:33 Problem List - Problems (1) Cholelithiasis Assessment/Plan: s/p ERCP and now lap cholecystectomy clear liquid diet Code(s): K80.20 - CALCULUS OF GALLBLADDER W/O CHOLECYSTITIS W/O OBSTRUCTION (2) Transaminitis Assessment/Plan: s/p ERCp and two CBD stones extracted and sphinterotom performed today had lap choecystectomy trend LFT Code(s): R74.0 - NONSPEC ELEV OF LEVELS OF TRANSAMNS & LACTIC ACID DEHYDRGNSE (3) Constipation Assessment/Plan: had BM Code(s): K59.00 - CONSTIPATION, UNSPECIFIED (4) Hematuria Assessment/Plan: seen by urology cystocopy done 6 months ago negative findings flomax no more hematuria Code(s): R31.9 - HEMATURIA, UNSPECIFIED Qualifiers: Hematuria type: unspecified type Qualified Code(s): R31.9 - Hematuria, unspecified (5) COPD (chronic obstructive pulmonary disease) Assessment/Plan: bronchodilators Code(s): J44.9 - CHRONIC OBSTRUCTIVE PULMONARY DISEASE, UNSPECIFIED Qualifiers: COPD type: unspecified COPD Qualified Code(s): J44.9 - Chronic obstructive pulmonary disease, unspecified (6) Umbilical hernia Assessment/Plan: open repair of hernia Code(s): K42.9 - UMBILICAL HERNIA WITHOUT OBSTRUCTION OR GANGRENE
[2019-02-19] MEDS ORDERED: oxyCODONE HCL 5 MG TABLET PO PRN (15:45)
[2019-02-19] MEDS: oxyCODONE HCL 5 MG TABLET PO PRN ×2 (15:55→21:56)
[2019-02-19] MEDS: TAMSULOSIN HCL 0.4 MG CAP PO SCH (17:53)
[2019-02-19] MEDS: ALBUTEROL SO4 0.083% IH SOL 2.5 MG/3 ML VIAL.NEB. NEB PRN (20:40)
[2019-02-19] MEDS: MONTELUKAST NA 10 MG TABLET PO SCH (21:54)
[2019-02-19] MEDS: ROSUVASTATIN CA 10 MG TABLET (FP) PO SCH (21:54)
[2019-02-19] MEDS: ACETAMINOPHEN 325 MG TABLET (FP) PO PRN (22:00)
[2019-02-20] MEDS: oxyCODONE HCL 5 MG TABLET PO PRN ×4 (05:41→22:56)
[2019-02-20] MEDS: metFORMIN HCL 500 MG TABLET (FP) PO SCH ×2 (06:03→17:14)
[2019-02-20 06:44] LABS: BASO % 0.3 % (0-2.0); EOS % 2.8 % (0-4.5); HEMOGLOBIN 11.8 GM/dL (11.7-16.9); LYMPH % 20.2 % (8-40); MCH 29.9 pg (25.7-33.7); MCHC 33.8 g/dl (32.0-35.9); MEAN CELL VOLUME 88.5 fl (80-96); MEAN PLT VOLUME 8.7 fl (7.5-11.1); MONO % 11.7 % (3.8-10.2); PLATELET COUNT 237 K/MM3 (134-434); RBC 3.95 M/mm3 (4.00-5.60); RDW 13.2 % (11.9-15.9); WHITE BLOOD COUNT 10.8 K/mm3 (4.0-10.0)
[2019-02-20 07:17] LABS: BILIRUBIN,TOTAL 1.1 mg/dL (0.2-1); CALCIUM 9.1 mg/dL (8.5-10.1); CREATININE 0.9 mg/dL (0.55-1.3); POTASSIUM 4.4 mmol/L (3.5-5.1); TOT PROT 5.9 g/dl (6.4-8.2)
[2019-02-20] MEDS ORDERED: PT OWN MED DRAWER 7, Y5N ONE (08:32)
[2019-02-20] MEDS: SODIUM CHLORIDE 1,000 ML IV SCH ×3 (09:23→21:26)
[2019-02-20] MEDS: predniSONE 5 MG TABLET (UD) PO SCH (09:24)
[2019-02-20] MEDS: PANTOPRAZOLE SODIUM 40 MG VIAL IVPUSH SCH (09:24)
[2019-02-20] MEDS: FUROSEMIDE 20 MG TABLET (FP) PO SCH (09:24)
[2019-02-20] MEDS: BUDESONIDE/FORMETEROL FUMARATE 160/4.5 mcg INHALER IH SCH ×2 (09:27→21:25)
--- NOTE | 2019-02-20 09:32 | PN ---
Progress Note, Physician - Current Medication List Current Medications: Active Medications Acetaminophen (Tylenol -) 650 mg PO Q6H PRN PRN Reason: PAIN LEVEL 1-5 Last Admin: 02/19/19 22:00 Dose: 650 mg Albuterol Sulfate (Ventolin 0.083% Nebulizer Soln -) 1 amp NEB Q4H PRN PRN Reason: ASTHMA Last Admin: 02/19/19 20:40 Dose: 1 amp Benzocaine/Menthol (Cepacol Lozenge -) 1 each MM PRN PRN PRN Reason: SORE THROAT Last Admin: 02/19/19 23:23 Dose: 1 each Bisacodyl (Dulcolax -) 5 mg PO DAILY PRN PRN Reason: CONSTIPATION Budesonide/Formoterol Fumarate (Symbicort 160/4.5mcg -) 1 puff IH BID [facility] Last Admin: 02/20/19 09:27 Dose: 1 puff Docusate Sodium (Colace -) 100 mg PO Q8H PRN PRN Reason: CONSTIPATION Fentanyl (Sublimaze Injection -) 50 mcg IVPUSH [id number] PRN PRN Reason: PAIN-PACU ORDER X 4 DOSES ONLY Last Admin: 02/19/19 12:20 Dose: 50 mcg Furosemide (Lasix -) 20 mg PO DAILY [facility] Last Admin: 02/20/19 09:24 Dose: 20 mg Lactated Ringer's (Lactated Ringers Solution) 1,000 mls @ 125 mls/hr IV ASDIR [facility] Last Admin: 02/19/19 13:40 Dose: 0 mls Sodium Chloride (Normal Saline -) 1,000 mls @ 100 mls/hr IV ASDIR [facility] Last Admin: 02/20/19 09:23 Dose: 100 mls/hr Lidocaine HCl (Xylocaine 2% Viscous Oral -) 20 ml MM Q6HPO PRN PRN Reason: ORAL PAIN/MOUTH SORES Metformin HCl (Glucophage -) 500 mg PO BID@0700,1630 [facility] Last Admin: 02/20/19 06:03 Dose: Not Given Montelukast Sodium (Singulair -) 10 mg PO HS [facility] Last Admin: 02/19/19 21:54 Dose: 10 mg Ondansetron HCl (Zofran Injection) 4 mg IVPUSH Q6H PRN PRN Reason: NAUSEA AND/OR VOMITING Oxycodone HCl (Roxicodone -) 5 mg PO Q4H PRN PRN Reason: PAIN LEVEL 1-5 Oxycodone HCl (Roxicodone -) 10 mg PO Q4H PRN PRN Reason: PAIN LEVEL 6-10 Last Admin: 02/20/19 05:41 Dose: 10 mg Pantoprazole Sodium (Protonix Iv) 40 mg IVPUSH DAILY [facility] Last Admin: 02/20/19 09:24 Dose: 40 mg Prednisone (Deltasone -) 5 mg PO DAILY [facility] Last Admin: 02/20/19 09:24 Dose: 5 mg Rosuvastatin Calcium (Crestor -) 10 mg PO HS [facility] Last Admin: 02/19/19 21:54 Dose: 10 mg Senna (Senna -) 2 tab PO HS PRN PRN Reason: CONSTIPATION Tamsulosin HCl (Flomax -) 0.8 mg PO DAILY@1800 [facility] Last Admin: 02/19/19 17:53 Dose: 0.8 mg - Objective Vital Signs: Vital Signs Temperature 98.5 F 02/20/19 06:00 Pulse Rate 66 02/20/19 06:00 Respiratory Rate 18 02/20/19 06:00 Blood Pressure 144/71 02/20/19 06:00 O2 Sat by Pulse Oximetry (%) 98 02/19/19 20:55 Cardiovascular: Yes: S1, S2 Respiratory: Yes: Regular, CTA Bilaterally Gastrointestinal: Yes: Soft, Distention, Hypoactive Bowel Sounds, Tenderness Labs: CBC, BMP 02/20/19 05:36 02/20/19 05:36 INR, PTT INR 1.06 (0.83-1.09) 02/16/19 05:33 Assessment/Plan - Problems (1) Cholelithiasis Assessment/Plan: Pain and istention--abd xray and lipase s/p ERCP and now lap cholecystectomy Operative Date: 02/19/19 Pre-Operative Diagnosis: cholelithiasis/choledocholithiasis Operation: laparoscopic cholecystectomy and open repai umbilical hernia Findings: cholelithiasis/umbilical hernia Surgeon: Osvaldo Eckert Commodities Trader: Regina Dunne clear liquid diet Code(s): K80.20 - CALCULUS OF GALLBLADDER W/O CHOLECYSTITIS W/O OBSTRUCTION (2) Transaminitis Assessment/Plan: s/p ERCp and two CBD stones extracted and sphinterotomy performed s/p lap choecystectomy trend LFT Code(s): R74.0 - NONSPEC ELEV OF LEVELS OF TRANSAMNS & LACTIC ACID DEHYDRGNSE (3) Constipation Assessment/Plan: had BM Code(s): K59.00 - CONSTIPATION, UNSPECIFIED (4) Hematuria Assessment/Plan: seen by urology cystocopy done 6 months ago negative findings flomax no more hematuria Code(s): R31.9 - HEMATURIA, UNSPECIFIED Qualifiers: Hematuria type: unspecified type Qualified Code(s): R31.9 - Hematuria, unspecified (5) COPD (chronic obstructive pulmonary disease) Assessment/Plan: bronchodilators Code(s): J44.9 - CHRONIC OBSTRUCTIVE PULMONARY DISEASE, UNSPECIFIED Qualifiers: COPD type: unspecified COPD Qualified Code(s): J44.9 - Chronic obstructive pulmonary disease, unspecified (6) Umbilical hernia Assessment/Plan: open repair of hernia Code(s): K42.9 - UMBILICAL HERNIA WITHOUT OBSTRUCTION OR GANGRENE
--- NOTE | 2019-02-20 09:49 | PN ---
Progress Note (short form) - Note Progress Note: Anesthesia Post op Pt seen and examined S:Alert and awake c/o short of breath O: Vital Signs Temperature 98.5 F 02/20/19 06:00 Pulse Rate 66 02/20/19 06:00 Respiratory Rate 18 02/20/19 06:00 Blood Pressure 144/71 02/20/19 06:00 O2 Sat by Pulse Oximetry (%) 98 02/19/19 20:55 CBC, BMP 02/20/19 05:36 02/20/19 05:36 chest:mild wheezing A/P Current Active Problems Cholelithiasis (Acute) Constipation (Acute) DM (diabetes mellitus) (Acute) Heart failure (Acute) Hematuria (Acute) Hyperlipemia (Acute) Need for prophylactic measure (Acute) Prostate cancer (Acute) Transaminitis (Acute) Umbilical hernia (Acute) s/p lap evan Guarded. respiratory treatment ordered. Informed the nurse. Continue current care Ehsan Banerjee MD
--- NOTE | 2019-02-20 10:29 | PN ---
Progress Note (short form) - Note Progress Note: POD#1 Pt with pain this am. No nausea or emesis overnight and tolerated sips of clears. Vital Signs Period Temp Pulse Resp BP Sys/Hall Pulse Ox Last 24 Hr 98.2 F-99.1 F 61-94 16-20 130-169/66-88 97-98 GEN: A&0x3 NAD ABD: Distended, RUQ tenderss. [id number] ml. Inc c/d/i. CBC, BMP 02/20/19 05:36 02/20/19 05:36 Laboratory Tests 02/20/19 05:36 AST 68 H ALT 159 H Alkaline Phosphatase 163 H Lipase 55 L A/p: 73 yo male s/p lap evan, POD#1 Pt with abd distention today, oob and ambulate and may clears. If emesis or nausea resume npo and obtain ABD xray Will remove JANEEN when oob to chair/ambulate D/w Dr. Eckert
[2019-02-20] MEDS: ALBUTEROL SO4 0.083% IH SOL 2.5 MG/3 ML VIAL.NEB. NEB PRN ×3 (10:45→20:15)
--- NOTE | 2019-02-20 15:28 | PN.GI ---
GI Progress Note Subjective: S/P Lap Estrellita Pain at trochar sites and JANEEN drain JANEEN drain with 30cc serosanguinous fluid - Objective Vital Signs: Vital Signs Temperature 98.9 F 02/20/19 08:00 Pulse Rate 69 02/20/19 08:00 Respiratory Rate 20 02/20/19 08:00 Blood Pressure 132/66 02/20/19 08:00 O2 Sat by Pulse Oximetry (%) 97 02/20/19 08:00 Eyes: No: Sclera Icterus Cardiovascular: Yes: Regular Rate and Rhythm. No: Murmur Respiratory: Yes: Diminished (at bases bilaterally with poor insp effort) ...Auscultate: Yes: Normoactive Bowel Sounds ...Palpate: Yes: Soft, Tenderness (TTP at trochar sites / JANEEN drain site in right abdomen) ...Percussion: No: Tympanitic Edema: No (No LE edema) Neurological: Yes: Alert Labs: CBC, BMP 02/20/19 05:36 02/20/19 05:36 INR, PTT INR 1.06 (0.83-1.09) 02/16/19 05:33 Hepatic Panel Total Bilirubin 1.1 mg/dL (0.2-1) H 02/20/19 05:36 Direct Bilirubin 0.9 mg/dL (0.0-0.2) H 02/19/19 05:55 AST 68 U/L (15-37) H 02/20/19 05:36 ALT 159 U/L (13-61) H 02/20/19 05:36 Alkaline Phosphatase 163 U/L (45-117) H 02/20/19 05:36 Albumin 3.0 g/dl (3.4-5.0) L 02/20/19 05:36 Problem List - Problems (1) Choledocholithiasis Assessment/Plan: S/P ERCP with stone extraction x 2 S/P Lap Estrellita LFT's continuing to improved Post op care per surgery. Incentive spirometer ordered per nurse. Code(s): K80.50 - CALCULUS OF BILE DUCT W/O CHOLANGITIS OR CHOLECYST W/O OBST
[2019-02-20] MEDS: TAMSULOSIN HCL 0.4 MG CAP PO SCH (17:08)
--- NOTE | 2019-02-20 17:57 | PATH ---
Surgical Pathology Report Patient Name: BENJAMIN BRODERICK [facility]. Rec. #: [id number] /Age/Gender: 1945 (Age: 73) / M Account: [id number] Location: [address] [place] [address]/[facility] Taken: 02/19/2019 Received: 02/19/2019 Reported: 02/20/2019 Physicians: Stephan Camilo MD Specimen(s) Received A: GALLBLADDER B: UMBILICAL HERNIA SAC Clinical History Cholelithiasis Final Diagnosis A. GALLBLADDER, LAPAROSCOPIC CHOLECYSTECTOMY: CHRONIC CHOLECYSTITIS WITH CHOLELITHIASIS. B. UMBILICAL HERNIA SAC, REPAIR: FIBROMEMBRANOUS AND FIBROADIPOSE TISSUE COMPATIBLE WITH HERNIA SAC. Electronically Signed Charo Luke M.D. Gross Description A. Received in formalin, labeled "gallbladder," is a 8 x 3 x 1.5 cm. gallbladder with a 0.7 cm. in length portion of cystic duct attached. The outer surface varies from smooth to shaggy. The lumen contains numerous black fragmented stones admixed with thick paste-like bile. The mucosa is fibrous and focally eroded. The wall of the gallbladder measures 0.2-0.5 cm. in thickness. Dietary Manager sections are submitted in one cassette. B. Received in formalin labeled "umbilical hernia sac" are 2 fragments of pink-simon fibromembranous tissue measuring 2 x 1 x 0.7 and 3 x 1 x 0.8 cm. Dietary Manager sections are submitted in one cassette. MLSZ/02/19/2019 sanjoaquim/02/19/2019
[2019-02-20] MEDS: ACETAMINOPHEN 325 MG TABLET (FP) PO PRN (18:42)
--- NOTE | 2019-02-20 20:07 | OP ---
DATE OF OPERATION: 02/19/2019 PREOPERATIVE DIAGNOSES: Cholelithiasis, choledocholithiasis, and umbilical hernia. POSTOPERATIVE DIAGNOSES: Cholelithiasis, choledocholithiasis, and umbilical hernia. PROCEDURE: Laparoscopic cholecystectomy and open repair, umbilical hernia. SURGEON: Osvaldo Eckert MD [employer] PROFESSOR: Regina Dunne PA-C ANESTHESIA: General. OPERATIVE FINDINGS: There was cholelithiasis and an umbilical hernia. The defect in the abdominal wall was approximately 2.2 to 2.5 cm in greatest dimension. The rest of the findings were unremarkable. DESCRIPTION OF PROCEDURE: The patient was placed on the operating table in supine position, and after the induction of general anesthesia, the patient's abdomen was prepped with ChloraPrep and draped in sterile fashion. Timeout was taken and an infraumbilical skin crease incision was made from the 3 to 9 o'clock position using a scalpel. This was taken down through the subcutaneous tissue to the abdominal wall. The umbilical stalk was bluntly encircled, and the umbilicus dissected off the sac which was entered. Redundant sac was excised using electrocautery and sent for pathological examination. Through the defect in the abdominal wall, a 12-mm Leora balloon port catheter was placed. Once adequate pneumoperitoneum was established, a 12-mm subxiphoid port and 2 right lower quadrant 5-mm ports were placed. Laparoscopy was carried out, and the previously noted findings were noted. In addition, the gallbladder was noted to be intrahepatic. The gallbladder was placed on cephalad and lateral traction. Dissection was begun in the triangle of Calot where the peritoneum over the gallbladder was opened using electrocautery. Laterally and medially, dissection was continued superiorly towards the dome of the gallbladder, mobilizing it from the liver bed. Using blunt dissection, the cystic duct was identified, as was the cystic artery. A critical view of safety was taken, and then, after the duct was milked proximally, it was clipped distally with two 10-mm hemoclips and two 10-mm hemoclips proximally. The artery was clipped with 5-mm clips x2 proximally and distally. The cystic duct was divided using the EndoShears, and prior to its complete division, an additional clip was placed on the patient's side. The artery was divided with the EndoShears, and then, the gallbladder was removed from the liver bed in a retrograde fashion using electrocautery. Once removed from the liver bed, it was placed in an Endo Catch and brought out through the subxiphoid port and pneumoperitoneum re-established. Hemostasis was secured with electrocautery, and copious irrigation was carried out with normal saline. A 10-mm Markus-Downing drain was placed in the right hepatorenal fossa and brought out through the lateral 5-mm port site, where it was secured to the skin with 2-0 silk suture. Pneumoperitoneum was again established. Hemostasis again verified, and then, all ports were removed under laparoscopic vision without evidence of bleeding from the port sites. The defect at the umbilicus where the hernia was present was closed with multiple 0 Ti-Cron horizontal mattress sutures. All port sites were infiltrated with 0.50% Marcaine, and then, the umbilicus was tacked down to the abdominal wall with interrupted 2-0 Vicryl. The deep subcutaneous tissue was reapproximated with interrupted 2-0 Vicryl, the deep dermis with interrupted 3-0 Vicryl, and the skin edges for all the port sites with 4-0 Monocryl in a subcuticular continuous fashion. The drain was connected to bulb self-suction. The port sites were dressed with Steri-Strips and Band-Aid dressings, and the procedure terminated at this point and the patient aroused from general anesthesia and transferred to the postanesthesia care unit in stable condition, awake and alert. ESTIMATED BLOOD LOSS: 25 mL. REPLACEMENTS: Crystalloid. DRAINS: One 10-mm Markus-Downing. SPECIMENS: Gallbladder and contents and hernia sac and fat to Pathology. I, Osvaldo Eckert, was physically present in the operating room from the time the patient was placed on the operating table until he was transferred to the postanesthesia care unit in my accompaniment. MD ALINE Nunez/[id number] MTDD
[2019-02-20] MEDS: ROSUVASTATIN CA 10 MG TABLET (FP) PO SCH (21:26)
[2019-02-20] MEDS: MONTELUKAST NA 10 MG TABLET PO SCH (21:26)
[2019-02-21] MEDS ORDERED: MELATONIN 5 MG TABLETS PO ONE (00:57)
[2019-02-21] MEDS: ACETAMINOPHEN 325 MG TABLET (FP) PO PRN ×2 (05:44→17:06)
[2019-02-21] MEDS: oxyCODONE HCL 5 MG TABLET PO PRN ×3 (05:44→17:05)
[2019-02-21] MEDS: metFORMIN HCL 500 MG TABLET (FP) PO SCH ×2 (06:10→17:00)
[2019-02-21 06:59] LABS: BASO % 0.6 % (0-2.0); EOS % 7.8 % (0-4.5); HEMATOCRIT 34.9 % (35.4-49); HEMOGLOBIN 11.8 GM/dL (11.7-16.9); LYMPH % 22.2 % (8-40); MCH 29.9 pg (25.7-33.7); MCHC 33.9 g/dl (32.0-35.9); MEAN PLT VOLUME 9.1 fl (7.5-11.1); MONO % 11.2 % (3.8-10.2); NEUT % 58.2 % (42.8-82.8); PLATELET COUNT 242 K/MM3 (134-434); RBC 3.97 M/mm3 (4.00-5.60); RDW 13.2 % (11.9-15.9); WHITE BLOOD COUNT 10.3 K/mm3 (4.0-10.0)
[2019-02-21 07:29] LABS: ALBUMIN 2.9 g/dl (3.4-5.0); BLOOD UREA NITROGEN 5.7 mg/dL (7-18); CALCIUM 9.1 mg/dL (8.5-10.1); CREATININE 0.8 mg/dL (0.55-1.3); POTASSIUM 4.1 mmol/L (3.5-5.1); TOT PROT 5.8 g/dl (6.4-8.2)
--- NOTE | 2019-02-21 08:20 | PN ---
Progress Note (short form) - Note Progress Note: POD 2, s/p laparoscopic cholecystectomy and open repair umbilical hernia Pt seen and examined. Reports he did not sleep well overnight due to discomfort/ pain. Does not want to take "too much pain medicine". Was oob to restroom. Tolerating clears, Denies n/v. No flatus yet. Denies cp/sob. Vital Signs Temp 98.1 F 02/21/19 06:00 Pulse 77 02/21/19 06:00 Resp 20 02/21/19 06:00 BP 144/69 02/21/19 06:00 Pulse Ox 94 L 02/20/19 20:24 Intake & Output 02/20/19 02/20/19 02/21/19 11:59 23:59 11:59 Intake Total 500 700 Output Total 972 352 6258 Balance -390 -225 -800 Intake: IV 500 700 Normal Saline - 1,000 ml 500 700 @ 100 mls/hr IV ASDIR BRIT Rx#:[id number] Oral 0 Output: Drainage 40 25 Abdomen 40 Right Lower Abdomen 25 Urine 596 959 4409 Void 211 932 1422 Other: Voiding Method Urinal Urinal Bowel Movement No No No CBC, BMP 02/21/19 05:35 Gen: awake, alert, nad Resp: Unlabored on RA Abdo: soft, distended, +bowel sounds, nontender to palpation, dressings c/d/i, no surrounding erythema. A/P: 73 y/o M w/ PMHx HTN, HLD, COPD, DM, BPH, and CHF admitted 02/12 with ? worsening hematuria over the course of 3days, found to have Choledocholithiasis/ cholelithiasis, s/p ERCP on 02/16 with 2 CBD stones extracted after sphincterotomy, now POD 2, s/p laparoscopic cholecystectomy and open repair umbilical hernia. Afebrile, VSS -OOB, ambulating -Pain control -Clears, advance slowly as tolerated, if develops n/v will need axr -bowel regimen -Remainder of care per primary team d/w attending Dr Eckert
[2019-02-21] MEDS: ALBUTEROL SO4 0.083% IH SOL 2.5 MG/3 ML VIAL.NEB. NEB PRN ×2 (08:45→12:03)
--- NOTE | 2019-02-21 10:35 | PN ---
Progress Note, Physician Chief Complaint: Gross hematuria History of Present Illness: NAD OOB to chair self ambulatory, has been walking in the hallway + flatulance tolerated cler liquids Pain controlled with oxycodone Seen by Surgery JANEEN removed yesterday - Current Medication List Current Medications: Active Medications Acetaminophen (Tylenol -) 650 mg PO Q6H PRN PRN Reason: PAIN LEVEL 1-5 Last Admin: 02/21/19 05:44 Dose: 650 mg Albuterol Sulfate (Ventolin 0.083% Nebulizer Soln -) 1 amp NEB Q4H PRN PRN Reason: ASTHMA Last Admin: 02/21/19 08:45 Dose: 1 amp Benzocaine/Menthol (Cepacol Lozenge -) 1 each MM PRN PRN PRN Reason: SORE THROAT Last Admin: 02/19/19 23:23 Dose: 1 each Bisacodyl (Dulcolax -) 5 mg PO DAILY PRN PRN Reason: CONSTIPATION Last Admin: 02/20/19 18:37 Dose: 5 mg Budesonide/Formoterol Fumarate (Symbicort 160/4.5mcg -) 1 puff IH BID [facility] Last Admin: 02/20/19 21:25 Dose: 1 puff Docusate Sodium (Colace -) 100 mg PO Q8H PRN PRN Reason: CONSTIPATION Last Admin: 02/20/19 18:37 Dose: 100 mg Furosemide (Lasix -) 20 mg PO DAILY [facility] Last Admin: 02/20/19 09:24 Dose: 20 mg Lactated Ringer's (Lactated Ringers Solution) 1,000 mls @ 125 mls/hr IV ASDIR [facility] Last Admin: 02/19/19 13:40 Dose: 0 mls Sodium Chloride (Normal Saline -) 1,000 mls @ 100 mls/hr IV ASDIR [facility] Last Admin: 02/20/19 21:26 Dose: 100 mls/hr Lidocaine HCl (Xylocaine 2% Viscous Oral -) 20 ml MM Q6HPO PRN PRN Reason: ORAL PAIN/MOUTH SORES Melatonin (Melatonin) [address] [facility] Metformin HCl (Glucophage -) 500 mg PO BID@0700,1630 [facility] Last Admin: 02/21/19 06:10 Dose: 500 mg Montelukast Sodium (Singulair -) 10 mg PO HS [facility] Last Admin: 02/20/19 21:26 Dose: 10 mg Ondansetron HCl (Zofran Injection) 4 mg IVPUSH Q6H PRN PRN Reason: NAUSEA AND/OR VOMITING Oxycodone HCl (Roxicodone -) 5 mg PO Q4H PRN PRN Reason: PAIN LEVEL 1-5 Oxycodone HCl (Roxicodone -) 10 mg PO Q4H PRN PRN Reason: PAIN LEVEL 6-10 Last Admin: 02/21/19 05:44 Dose: 10 mg Pantoprazole Sodium (Protonix Iv) 40 mg IVPUSH DAILY [facility] Last Admin: 02/20/19 09:24 Dose: 40 mg Prednisone (Deltasone -) 5 mg PO DAILY [facility] Last Admin: 02/20/19 09:24 Dose: 5 mg Rosuvastatin Calcium (Crestor -) 10 mg PO HS [facility] Last Admin: 02/20/19 21:26 Dose: 10 mg Senna (Senna -) 2 tab PO HS PRN PRN Reason: CONSTIPATION Tamsulosin HCl (Flomax -) 0.8 mg PO DAILY@1800 [facility] Last Admin: 02/20/19 17:08 Dose: 0.8 mg - Objective Vital Signs: Vital Signs Temperature 98.1 F 02/21/19 06:00 Pulse Rate 77 02/21/19 06:00 Respiratory Rate 20 02/21/19 06:00 Blood Pressure 144/69 02/21/19 06:00 O2 Sat by Pulse Oximetry (%) 94 L 02/20/19 20:24 Constitutional: Yes: Well Nourished, No Distress, Calm Cardiovascular: Yes: Regular Rate and Rhythm Respiratory: Yes: Regular Gastrointestinal: Yes: Normal Bowel Sounds, Soft, Abdomen, Obese Genitourinary: Yes: WNL Musculoskeletal: Yes: WNL Extremities: Yes: WNL Edema: No Peripheral Pulses WNL: Yes Neurological: Yes: Alert, Oriented Psychiatric: Yes: Alert, Oriented Labs: CBC, BMP 02/21/19 05:35 02/21/19 05:35 INR, PTT INR 1.06 (0.83-1.09) 02/16/19 05:33 Problem List - Problems (1) DM (diabetes mellitus) Assessment/Plan: -A1c at 6.7 -Continue metfornin 500 mg po BID outpatient -Diabetic low sodium diet -Could be 2/2 to chronic prednisone usage (for COPD) Problems reviewed: Yes Code(s): E11.9 - TYPE 2 DIABETES MELLITUS WITHOUT COMPLICATIONS Qualifiers: Diabetes mellitus type: type 2 Diabetes mellitus superintendent terminal insulin use: with half-way use Diabetes mellitus complication status: with other specified complication Qualified Code(s): E11.69 - Type 2 diabetes mellitus with other specified complication; Z79.4 - nursing home (current) use of insulin (2) COPD (chronic obstructive pulmonary disease) Assessment/Plan: -Continue home meds-prednisone,symbicort and montelukast -Bronchodilators -Nasal O2 PRN to keep Spo2>90% -Check pre/post ambulatory SpO2 Problems reviewed: Yes Code(s): J44.9 - CHRONIC OBSTRUCTIVE PULMONARY DISEASE, UNSPECIFIED Qualifiers: COPD type: unspecified COPD Qualified Code(s): J44.9 - Chronic obstructive pulmonary disease, unspecified (3) Transaminitis Assessment/Plan: -s/p POD 2 lap choley -U/S abd+ CT abd showed no liver abnormality -GI consult -ERCP discovered two CBD stones which were extracted after a sphincterotomy -Liver enzymes trending down -Advance diet to diabetic low sodium- if tolerates lunch, would d/c home -Pancreatic enzymes normal Code(s): R74.0 - NONSPEC ELEV OF LEVELS OF TRANSAMNS & LACTIC ACID DEHYDRGNSE (4) Hematuria Assessment/Plan: -None seen in UA -UC negative -Seen by Urology-no further intervention recommended -Cystoscopy done within past 6 months was normal. -H/H stable Problems reviewed: Yes Code(s): R31.9 - HEMATURIA, UNSPECIFIED Qualifiers: Hematuria type: unspecified type Qualified Code(s): R31.9 - Hematuria, unspecified (5) Constipation Assessment/Plan: -has been on clear liquids from past 5 days -if constipation occurs o/p 2/2 to narcotics, can follow the regimen below -Miralax o/p upto 3 x day -Continue Senna 2 tabs HS -Continue colace 300 mg po HS -Milk of magnesia 30 ml QHSPRN Problems reviewed: Yes Code(s): K59.00 - CONSTIPATION, UNSPECIFIED Assessment/Plan see problem list
[2019-02-21] MEDS: FUROSEMIDE 20 MG TABLET (FP) PO SCH (10:39)
[2019-02-21] MEDS: predniSONE 5 MG TABLET (UD) PO SCH (10:39)
[2019-02-21] MEDS: PANTOPRAZOLE SODIUM 40 MG VIAL IVPUSH SCH (10:39)
[2019-02-21] MEDS: BUDESONIDE/FORMETEROL FUMARATE 160/4.5 mcg INHALER IH SCH (10:43)
--- NOTE | 2019-02-21 10:45 | DS ---
Physical Examination Vital Signs: Vital Signs Temperature 98.1 F 02/21/19 06:00 Pulse Rate 77 02/21/19 06:00 Respiratory Rate 20 02/21/19 06:00 Blood Pressure 144/69 02/21/19 06:00 O2 Sat by Pulse Oximetry (%) 94 L 02/20/19 20:24 Findings/Remarks: 73 year old male with a significant past medical history of HTN, HLD, COPD, DM, BPH, and CHF who presents to the ED with worsening hematuria over the course of 3days. Pt has prostate cancer which is being treated with casodex BID. He reports mild hematuria starting on tuesday which progressed to gross hematuria by tuesday. He reports mild left sided pelvic pain, denies fever/chills/N/V/D, + constipation. Operative Date: 02/19/19 Pre-Operative Diagnosis: cholelithiasis/choledocholithiasis Operation: laparoscopic cholecystectomy and open repai umbilical hernia Findings: cholelithiasis/umbilical hernia Surgeon: Osvaldo Eckert Manager Night: Regina Dunne Constitutional: Yes: Well Nourished, No Distress, Calm Cardiovascular: Yes: Regular Rate and Rhythm Respiratory: Yes: Regular Gastrointestinal: Yes: Normal Bowel Sounds, Soft, Abdomen, Obese Renal/: Yes: WNL Musculoskeletal: Yes: WNL Extremities: Yes: WNL Edema: No Peripheral Pulses WNL: Yes Neurological: Yes: Alert, Oriented Psychiatric: Yes: Alert, Oriented Labs: CBC, BMP 02/21/19 05:35 02/21/19 05:35 Discharge Summary Problems reviewed: Yes Reason For Visit: ELEVATED TRANSAMINASE MEASUREMENT Current Active Problems Choledocholithiasis (Acute) Cholelithiasis (Acute) Constipation (Acute) DM (diabetes mellitus) (Acute) Heart failure (Acute) Hematuria (Acute) Hyperlipemia (Acute) Need for prophylactic measure (Acute) Prostate cancer (Acute) Transaminitis (Acute) Umbilical hernia (Acute) Laboratory Last Values WBC 10.3 K/mm3 (4.0-10.0) H 02/21/19 05:35 RBC 3.97 M/mm3 (4.00-5.60) L 02/21/19 05:35 Hgb 11.8 GM/dL (11.7-16.9) 02/21/19 05:35 Hct 34.9 % (35.4-49) L 02/21/19 05:35 MCV 88.0 fl (80-96) 02/21/19 05:35 MCH 29.9 pg (25.7-33.7) 02/21/19 05:35 MCHC 33.9 g/dl (32.0-35.9) 02/21/19 05:35 RDW 13.2 % (11.9-15.9) 02/21/19 05:35 Plt Count 242 K/MM3 (134-434) 02/21/19 05:35 MPV 9.1 fl (7.5-11.1) 02/21/19 05:35 Absolute Neuts (auto) 6.0 K/mm3 (1.5-8.0) 02/21/19 05:35 Neutrophils % 58.2 % (42.8-82.8) 02/21/19 05:35 Lymphocytes % 22.2 % (8-40) 02/21/19 05:35 Monocytes % 11.2 % (3.8-10.2) H 02/21/19 05:35 Eosinophils % 7.8 % (0-4.5) H D 02/21/19 05:35 Basophils % 0.6 % (0-2.0) 02/21/19 05:35 Nucleated RBC % 0 % (0-0) 02/21/19 05:35 PT with INR 12.50 SEC (9.7-13.0) 02/16/19 05:33 INR 1.06 (0.83-1.09) 02/16/19 05:33 PTT (Actin FS) 36.3 SECONDS (25.2-36.5) 02/12/19 13:30 Sodium 143 mmol/L (136-145) 02/21/19 05:35 Potassium 4.1 mmol/L (3.5-5.1) 02/21/19 05:35 Chloride 108 mmol/L (98-107) H 02/21/19 05:35 Carbon Dioxide 32 mmol/L (21-32) 02/21/19 05:35 Anion Gap 4 MMOL/L (8-16) L 02/21/19 05:35 BUN 5.7 mg/dL (7-18) L 02/21/19 05:35 Creatinine 0.8 mg/dL (0.55-1.3) 02/21/19 05:35 Est GFR (CKD-EPI)AfAm 101.28 02/21/19 05:35 Est GFR (CKD-EPI)NonAf 87.38 02/21/19 05:35 POC Glucometer 97 UNITS (80-120) 02/21/19 05:37 Random Glucose 94 mg/dL (74-106) 02/21/19 05:35 Hemoglobin A1c % 6.7 % (4.2-6.3) H 02/13/19 10:45 Calcium 9.1 mg/dL (8.5-10.1) 02/21/19 05:35 Magnesium 2.3 mg/dL (1.8-2.4) 02/13/19 06:20 Total Bilirubin 1.0 mg/dL (0.2-1) 02/21/19 05:35 Direct Bilirubin 0.9 mg/dL (0.0-0.2) H 02/19/19 05:55 AST 48 U/L (15-37) H 02/21/19 05:35 ALT 128 U/L (13-61) H 02/21/19 05:35 Alkaline Phosphatase 151 U/L (45-117) H 02/21/19 05:35 Liver GGT 365 IU/L (0-65) H 02/14/19 06:28 Liver Total Bilirubin 4.0 mg/dL (0.0-1.2) H 02/14/19 06:28 Liver Fibrosis ALT 325 IU/L (0-55) H 02/14/19 06:28 Liver Haptoglobin 178 mg/dL (34-200) 02/14/19 06:28 Liver Fibrosis Score 0.91 (0.00-0.21) H 02/14/19 06:28 Necroinflammator Score 0.96 (0.00-0.17) H 02/14/19 06:28 Necroinflam Pat Score (.) 02/14/19 06:28 Necroinflammator Grade A3-severe activity (.) 02/14/19 06:28 C-Reactive Protein 0.6 MG/DL (0.00-0.3) H 02/17/19 06:22 Total Protein 5.8 g/dl (6.4-8.2) L 02/21/19 05:35 Albumin 2.9 g/dl (3.4-5.0) L 02/21/19 05:35 Apolipoprotein A-1 128 mg/dL (101-178) 02/14/19 06:28 Total Amylase 53 U/L (25-115) 02/19/19 05:55 Lipase 55 U/L (73-393) L 02/20/19 05:36 TSH 1.07 uIU/ml (0.358-3.74) 02/13/19 06:20 Urine Color Dk yellow 02/12/19 17:15 Urine Appearance Clear 02/12/19 17:15 Urine pH 6.5 (5.0-8.0) 02/12/19 17:15 Ur Specific [place] 1.047 (1.010-1.035) H 02/12/19 17:15 Urine Protein Negative (NEGATIVE) 02/12/19 17:15 Urine Glucose (UA) Negative (NEGATIVE) 02/12/19 17:15 Urine Ketones Negative (NEGATIVE) 02/12/19 17:15 Urine Blood Negative (NEGATIVE) 02/12/19 17:15 Urine Nitrite Negative (NEGATIVE) 02/12/19 17:15 Urine Bilirubin 2+ (NEGATIVE) H 02/12/19 17:15 Urine Urobilinogen 1.0 mg/dL (0.2-1.0) 02/12/19 17:15 Ur Leukocyte Esterase Negative (NEGATIVE) 02/12/19 17:15 Stool Occult Blood Negative (NEGATIVE) 02/12/19 13:30 FABIANO Screen Negative (.) 02/14/19 06:28 Hep A IgM Ab Confirm Negative (Negative) 02/13/19 21:00 Hep Bs Antigen Negative (Negative) 02/13/19 21:00 Hep B Core Total Ab Negative (Negative) 02/14/19 06:28 Hep B Core IgM Ab Negative (Negative) 02/13/19 21:00 Hepatitis C Ab (EIA) 0.1 s/co ratio (0.0-0.9) 02/13/19 21:00 Liver Fibrosis Comment (.) 02/14/19 06:28 Liver Fibrosis Limits (.) 02/14/19 06:28 Liver Fibrosis Interp (.) 02/14/19 06:28 Blood Type A POSITIVE 02/12/19 13:30 Antibody Screen Negative 09/30/19 13:30 Microbiology 02/13/19 16:30 Nares - Mrsa Screen - Left MRSA Screen - Final Mr S Aureus 02/13/19 09:30 Urine - Urine Clean Catch Urine Culture - Final NO GROWTH OBTAINED Vital Signs Temp 98.1 F 02/21/19 06:00 Pulse 77 02/21/19 06:00 Resp 20 02/21/19 06:00 BP 144/69 02/21/19 06:00 Pulse Ox 94 L 02/20/19 20:24 Intake & Output 02/20/19 02/20/19 02/21/19 11:59 23:59 11:59 Intake Total 500 700 Output Total 717 825 4142 Balance -390 -225 -800 Intake: IV 500 700 Normal Saline - 1,000 ml 500 700 @ 100 mls/hr IV ASDIR BRIT Rx#:[id number] Oral 0 Output: Drainage 40 25 Abdomen 40 Right Lower Abdomen 25 Urine 704 618 2384 Void [phone] Other: Voiding Method Urinal Urinal Bowel Movement No No No Condition: Stable - Instructions Diet, Activity, Other Instructions: Dr. Eckert Discharge Instructions Dear BENJAMIN BRODERICK, Post Operative Instructions Physical activity Resume your normal everyday activity as tolerated no heavy lifting or exercise until seen by your surgeon. You may walk unlimited amounts of and climb stairs. You may resume driving the car when you feel safe and comfortable behind the wheel and are no longer taking narcotics. Wound care If you have a bandage, leave it on, and keep dry for 48 hours. After that time discard the outer bandage. If there are tapes on the skin under the outer bandage, leave them in place. They will peel off in the next 7 to 10 days. Do Not peel them off. You may shower 2 days after surgery but do not submerge the incisions. If there are tapes present on the skin, they can get wet. Do not apply lotion or ointments to incisions. Diet There are no dietary restrictions. Eat healthy, high-fiber foods. Drink 6 to 8 glasses of liquid each day. This will assist in keeping your bowels are regular. Pain management You may take Tylenol or acetaminophen or Ibuprofen (for example, Motrin, Advil etc.) Any pain prescription medication ordered should be taken as prescribed for moderate to severe pain. Call Dr. Eckert for any of the following: Severe pain not relieved by medication Fever of 101 or higher Excessive bleeding or drainage on dressing Inability to urinate If you experience any chest pain or shortness of breath please seek emergency treatment immediately. Call the office at [phone] for a post operative appointment in 7 - 10 days. Referrals: Osvaldo Eckert MD [Staff Physician] - David Gaytan MD [Primary Care Provider] - Disposition: [facility]/HOME HEALTH CARE - Home Medications Comprehensive Discharge Medication List: Ambulatory Orders Aspirin [ASA -] 81 mg PO DAILY #0 tab.chew 07/31/14 Rosuvastatin [Crestor -] 10 mg PO DAILY 12/05/16 Furosemide [Lasix -] 20 mg PO DAILY 10/09/17 Albuterol 0.083% Nebulizer Jacki [Ventolin 0.083% Nebulizer Soln -] 1 neb NEB Q4H PRN #20 vial 10/25/17 Albuterol Sulfate Inhaler - [Ventolin HFA Inhaler -] 1 - 2 inh PO Q4H PRN #1 inhaler 10/25/17 Budesonide/Formeterol Fumarate [SYMBICORT 160/4.5mcg -] 1 inh PO BID 02/02/18 Bicalutamide [Casodex] 50 mg PO BID 12/25/18 Montelukast Na [Singulair -] 10 mg PO HS 02/12/19 Prednisone 5 mg PO DAILY 02/12/19 Acetaminophen [Tylenol .Regular Strength -] 650 mg PO Q6H PRN tablet 02/21/19 Docusate Sodium [Colace -] 300 mg PO HS #90 capsule 02/21/19 Magnesium Hydroxide [Milk of Magnesia] 30 ml PO DAILY PRN #1 bot 02/21/19 Polyethylene Glycol 3350 [Miralax (For Daily Use) -] 17 gm PO TID PRN #1 bottle 02/21/19 Sennosides [Senna -] 2 tab PO HS #60 tablet 02/21/19 Tamsulosin HCl [Flomax -] 0.8 mg PO DAILY@1800 #60 cap.er.24h 02/21/19 metFORMIN HCL [Glucophage -] 500 mg PO BID@0700,1630 #60 tablet 02/21/19 oxyCODONE HCL [Roxicodone -] 5 mg PO TID PRN #15 tablet MDD 3 02/21/19 Prescription Drug Monitoring Program (I-STOP) results: I-STOP reviewed and no issues identified
--- NOTE | 2019-02-21 11:09 | PN ---
Progress Note (short form) - Note Progress Note: Doing well post op from CCx. No abdominal pain. Feels well. VSS Abs soft, ND/NT Plan Continue post op care Follow up with GI as needed
[2019-02-21 15:23] VITALS: BP 128/57; PULSE 100; TEMP 98.1
[2019-02-21] MEDS: TAMSULOSIN HCL 0.4 MG CAP PO SCH (18:09)
[2019-02-21] MEDS ORDERED: MELATONIN 1 MG TABLET PO SCH (22:00)
== END 2019-02-21 19:55 | disposition home health service (06) | DRG 416 ==
LOC: JER 12:11 → JERBED 17:39 → INTOOBSV 17:39 → J4S 20:52 → OBSVTOIN 02-13 20:46
PROVIDERS: ATTEND Family Medicine
PROC: 0W3P0ZZ Control Bleeding in Gastrointestinal Tract, Open Approach (ICD-10-PCS; 2019-02-16)
PROC: 0FC98ZZ Extirpation of Matter from Common Bile Duct, Via Natural or Artificial Opening Endoscopic (ICD-10-PCS; 2019-02-16)
PROC: BF10YZZ Fluoroscopy of Bile Ducts using Other Contrast (ICD-10-PCS; 2019-02-16)
PROC: 0BQT0ZZ Repair Diaphragm, Open Approach (ICD-10-PCS; 2019-02-19)
PROC: 0FT40ZZ Resection of Gallbladder, Open Approach (ICD-10-PCS; principal; 2019-02-19 09:00)
DX: K80.64 Calculus of gallbladder and bile duct with chronic cholecystitis without obstruction (principal); R74.0 Nonspecific elevation of levels of transaminase and lactic acid dehydrogenase [LDH]; K59.00 Constipation, unspecified; I10 Essential (primary) hypertension; E78.1 Pure hyperglyceridemia; I27.20 Pulmonary hypertension, unspecified; J44.9 Chronic obstructive pulmonary disease, unspecified; J45.909 Unspecified asthma, uncomplicated; E11.65 Type 2 diabetes mellitus with hyperglycemia; K83.8 Other specified diseases of biliary tract; E11.69 Type 2 diabetes mellitus with other specified complication; K42.9 Umbilical hernia without obstruction or gangrene; C61 Malignant neoplasm of prostate; N40.0 Benign prostatic hyperplasia without lower urinary tract symptoms; R31.0 Gross hematuria; E78.5 Hyperlipidemia, unspecified; E66.9 Obesity, unspecified; Z68.31 Body mass index [BMI] 31.0-31.9, adult
CPT/HCPCS: 36415; 74018-TC-FY; 74177-TC; 74181-TC; 76000-TC-FY; 76705-TC; 80053; 80074; 80076; 81003; 82150; 82172; 82248; 82272; 82962; 82977; 83010; 83036; 83690; 83735; 83883; 84443; 84460; 85025; 85027; 85610; 85730; 86038; 86140; 86704; 86850; 86900; 86901; 87077; 87081; 87086; 88302-TC; 88304-TC; 93005; 93010; 94640; 94760; 94761; 99284-25; G0378; J7030

== ENCOUNTER 2019-03-02 16:34 | Emergency (ER) | payer OTHER ==
[2019-03-02 16:58] VITALS: BP 145/79; PULSE 71; TEMP 98.2; BMI 30.8
--- NOTE | 2019-03-02 16:59 | PDOC ---
Rapid Medical Evaluation Time Seen by Provider: 03/02/19 16:55 Medical Evaluation: Allergies Allergy/AdvReac Type Severity Reaction Status Date / Time ibuprofen [From Advil] Allergy Unknown Vomiting Verified 08/12/18 12:54 azithromycin [From Zithromax] AdvReac Mild Vomiting Verified 08/12/18 12:54 03/02/19 16:55 I have performed a brief in-person evaluation of this patient. The patient presents with a chief complaint of: R 2nd finger joint pain, redness and swelling. Denies trauma/fall. no prior h/o similar symptoms. No h/o gout Pertinent physical exam findings: R 2nd MCP swollen, hot, warm, red, tender, limited ROM I have ordered the following: CBC, CMP, esr, crp, uric acid, xrays The patient will proceed to the ED for further evaluation. Discharge Disposition - Diagnosis Swelling of joint, hand, right - Referrals - Patient Instructions - Post Discharge Activity
[2019-03-02 18:08] LABS: BASO % 0.2 % (0-2.0); EOS % 9.7 % (0-4.5); HEMATOCRIT 37.4 % (35.4-49); HEMOGLOBIN 12.6 GM/dL (11.7-16.9); LYMPH % 22.7 % (8-40); MCH 29.6 pg (25.7-33.7); MCHC 33.7 g/dl (32.0-35.9); MEAN CELL VOLUME 87.8 fl (80-96); MEAN PLT VOLUME 8.9 fl (7.5-11.1); MONO % 9.5 % (3.8-10.2); NEUT % 57.9 % (42.8-82.8); PLATELET COUNT 355 K/MM3 (134-434); RBC 4.26 M/mm3 (4.00-5.60); RDW 13.1 % (11.9-15.9); WHITE BLOOD COUNT 9.9 K/mm3 (4.0-10.0)
--- NOTE | 2019-03-02 18:17 | PDOC ---
History of Present Illness - History of Present Illness Initial Comments: 73 y/o male with PMH of COPD, HTN, HLD< DM, and CHF ( EF ), prostate on CA (on hormones and ), s/p 1 week evan with right 2nd MCP leonard for the past 2 days. States that he noticed it two nights ago which woke him up in his sleep. No trauma or previous history of pain to the site. It is painful and pruritic with worsening pain with movement. Denies fevers, chills, chest, pain, nausea, vomitign, tobacco, drug, or EtOH use. 03/02/19 18:18 <Nahomy Edmonds - Last Filed: 03/02/19 18:18> <Ferny Astorga - Last Filed: 03/02/19 21:25> - General Chief Complaint: Edema Stated Complaint: HAND SWOLLEN Time Seen by Provider: 03/02/19 16:55 Past History - Past Medical History Anemia: No Asthma: Yes Cancer: Yes (ca prostate) Cardiac Disorders: Yes (CHF) CVA: No COPD: Yes CHF: Yes DVT: Yes Dementia: No Diabetes: Yes (NO MED - RELATED PREDISONE) GI Disorders: Yes (GERD, COLON POLYP) Disorders: Yes (ENLARGED PROSTATE) HTN: Yes Hypercholesterolemia: Yes Liver Disease: No Seizures: No Thyroid Disease: No - Surgical History Abdominal Surgery: No Appendectomy: No Cardiac Surgery: No Cholecystectomy: No Lung Surgery: No Neurologic Surgery: No Orthopedic Surgery: No - Immunization History Immunization Up to Date: Yes - Psycho Social/Smoking Cessation Hx Smoking Status: No Smoking History: Never smoked Have you smoked in the past 12 months: No Number of Cigarettes Smoked Daily: 0 If you are a former smoker, when did you quit?: 2001 'Breaking Loose' booklet given: 01/08/12 Hx Alcohol Use: No Drug/Substance Use Hx: No Substance Use Type: None Hx Substance Use Treatment: No <Nahomy Edmonds - Last Filed: 03/02/19 18:18> <Ferny Astorga - Last Filed: 03/02/19 21:25> - Past Medical History Allergies/Adverse Reactions: Allergies Allergy/AdvReac Type Severity Reaction Status Date / Time ibuprofen [From Advil] Allergy Unknown Vomiting Verified 03/02/19 16:58 azithromycin [From Zithromax] AdvReac Mild Vomiting Verified 03/02/19 16:58 Home Medications: Ambulatory Orders Aspirin [ASA -] 81 mg PO DAILY #0 tab.chew 07/31/14 Rosuvastatin [Crestor -] 10 mg PO DAILY 12/05/16 Furosemide [Lasix -] 20 mg PO DAILY 10/09/17 Albuterol 0.083% Nebulizer Jacki [Ventolin 0.083% Nebulizer Soln -] 1 neb NEB Q4H PRN #20 vial 10/25/17 Albuterol Sulfate Inhaler - [Ventolin HFA Inhaler -] 1 - 2 inh PO Q4H PRN #1 inhaler 10/25/17 Budesonide/Formeterol Fumarate [SYMBICORT 160/4.5mcg -] 1 inh PO BID 02/02/18 Bicalutamide [Casodex] 50 mg PO BID 12/25/18 Montelukast Na [Singulair -] 10 mg PO HS 02/12/19 Prednisone 5 mg PO DAILY 02/12/19 Acetaminophen [Tylenol .Regular Strength -] 650 mg PO Q6H PRN tablet 02/21/19 Docusate Sodium [Colace -] 300 mg PO HS #90 capsule 02/21/19 Magnesium Hydroxide [Milk of Magnesia] 30 ml PO DAILY PRN #1 bot 02/21/19 Polyethylene Glycol 3350 [Miralax (For Daily Use) -] 17 gm PO TID PRN #1 bottle 02/21/19 Sennosides [Senna -] 2 tab PO HS #60 tablet 02/21/19 Tamsulosin HCl [Flomax -] 0.8 mg PO DAILY@1800 #60 cap.er.24h 02/21/19 metFORMIN HCL [Glucophage -] 500 mg PO BID@0700,1630 #60 tablet 02/21/19 oxyCODONE HCL [Roxicodone -] 5 mg PO TID PRN #15 tablet MDD 3 02/21/19 Cephalexin Monohydrate [Keflex -] 500 mg PO Q6H #20 capsule 03/02/19 Review of Systems - Review of Systems Constitutional: No: Chills, Diaphoresis, Fever HEENTM: No: Eye Pain, Blurred Vision, Tearing Respiratory: No: Cough, Orthopnea, Shortness of Breath Cardiac (ROS): No: Chest Pain, Edema, Irregular Heart Rate ABD/GI: No: Diarrhea, Nausea, Vomiting : No: Dysuria, Incontinence Musculoskeletal: Yes: Joint Pain, Joint Swelling. No: Back Pain, Muscle Pain, Muscle Weakness Integumentary: No: Bruising, Erythema, Flushing Neurological: No: Headache, Numbness, Paresthesia Hematologic/Lymphatic: No: Anemia, Blood Clots, Easy Bleeding <Nahomy Edmonds - Last Filed: 03/02/19 18:18> *Physical Exam - Vital Signs Last Vital Signs Temp Pulse Resp BP Pulse Ox 98.2 F 71 16 145/79 95 03/02/19 16:54 03/02/19 16:54 03/02/19 16:54 03/02/19 16:54 03/02/19 16:54 - Physical Exam General Appearance: Yes: Nourished, Appropriately Dressed. No: Apparent Distress HEENT: positive: EOMI, MT, Normal ENT Inspection, Normal Voice Neck: positive: Trachea midline, Normal Thyroid, Supple. negative: Tender, Rigid Respiratory/Chest: negative: Chest Tender, Lungs Clear, Normal Breath Sounds ( crackles at bilateral lung bases), Respiratory Distress, Accessory Muscle Use Cardiovascular: positive: Regular Rhythm, Regular Rate Gastrointestinal/Abdominal: positive: Normal Bowel Sounds, Flat, Soft. negative : Tender Rectal Exam: negative: deferred, melena Lymphatic: negative: Adenopathy, Tenderness Musculoskeletal: positive: Decreased Range of Motion (right first finger swollen from dip to mtp with tender to touch). negative: Normal Inspection Extremity: positive: Normal Capillary Refill, Tender. negative: Normal Inspection, Normal Range of Motion Integumentary: positive: Normal Color, Dry, Warm Neurologic: positive: Fully Oriented, Alert, Normal Mood/Affect, Normal Response , Motor Strength 5/5 <Nahomy Edmonds - Last Filed: 03/02/19 18:18> - Vital Signs Last Vital Signs Temp Pulse Resp BP Pulse Ox 98.2 F 71 16 145/79 95 03/02/19 16:54 03/02/19 16:54 03/02/19 16:54 03/02/19 16:54 03/02/19 16:54 <Ferny Astorga - Last Filed: 03/02/19 21:25> ED Treatment Course - LABORATORY CBC & Chemistry Diagram: 03/02/19 17:15 03/02/19 17:15 - ADDITIONAL ORDERS Additional order review: 03/02/19 17:15 RBC 4.26 MCV 87.8 MCHC 33.7 RDW 13.1 MPV 8.9 Neutrophils % 57.9 Lymphocytes % 22.7 Monocytes % 9.5 Eosinophils % 9.7 H Basophils % 0.2 <Nahomy Edmonds - Last Filed: 03/02/19 18:18> - LABORATORY CBC & Chemistry Diagram: 03/02/19 17:15 03/02/19 17:15 - ADDITIONAL ORDERS Additional order review: Laboratory Results 03/02/19 17:15 Sodium 140 Potassium 3.8 Chloride 106 Carbon Dioxide 28 Anion Gap 7 L BUN 13.1 Creatinine 0.9 Est GFR (CKD-EPI)AfAm 96.49 Est GFR (CKD-EPI)NonAf 83.25 Random Glucose 124 H Calcium 9.4 Total Bilirubin 0.6 AST 21 ALT 50 Alkaline Phosphatase 97 C-Reactive Protein 0.4 H Total Protein 6.8 Albumin 3.4 03/02/19 17:15 RBC 4.26 MCV 87.8 MCHC 33.7 RDW 13.1 MPV 8.9 Neutrophils % 57.9 Lymphocytes % 22.7 Monocytes % 9.5 Eosinophils % 9.7 H Basophils % 0.2 - Medications Given in the ED: ED Medications Discontinued Medications Generic Name Dose Route Start Last Admin Trade Name Shailesh PRN Reason Stop Dose Admin Acetaminophen 975 mg 03/02/19 18:41 03/02/19 20:04 Tylenol - PO 03/02/19 18:42 975 mg ONCE ONE Administration <Ferny Astorga - Last Filed: 03/02/19 21:25> Discharge <Nahomy Edmonds - Last Filed: 03/02/19 18:18> - Admission No <Ferny Astorga - Last Filed: 03/02/19 21:25> - Discharge Information Clinical Impression/Diagnosis: Swelling of joint, hand, right, Cellulitis of hand, right Condition: Improved Disposition: HOME - Additional Discharge Information Prescriptions: Cephalexin Monohydrate [Keflex -] 500 mg PO Q6H #20 capsule - Follow up/Referral Referrals: David Gaytan MD [Primary Care Provider] - - Patient Discharge Instructions Patient Printed Discharge Instructions: DI for Cellulitis -- Adult Additional Instructions: Return to the emergency department immediately with ANY new, persistent or worsening symptoms including worsening redness, swelling, fevers or any other concern. Take the antibiotics as prescribed You MUST call and follow up with your doctor in 3-4 days for further evaluation of your symptoms. Results were discussed with you. Please make sure your doctor reviews the results of your emergency evaluation. Your Emergency Department visit is not complete without a follow up with your doctor. If you had any xrays during your visit, it was read preliminarily by myself, a Radiologist will review it and if there are any additional findings we will call you. Print Language: SRI LANKAN - Post Discharge Activity
[2019-03-02 18:24] LABS: ALBUMIN 3.4 g/dl (3.4-5.0); BILIRUBIN,TOTAL 0.6 mg/dL (0.2-1); BLOOD UREA NITROGEN 13.1 mg/dL (7-18); CALCIUM 9.4 mg/dL (8.5-10.1); CREATININE 0.9 mg/dL (0.55-1.3); POTASSIUM 3.8 mmol/L (3.5-5.1); TOT PROT 6.8 g/dl (6.4-8.2)
[2019-03-02] MEDS ORDERED: ACETAMINOPHEN 500 MG TABLET (FP) PO ONE (18:41)
--- NOTE | 2019-03-02 19:23 | PDOC ---
Documentation entered by Merna Medina SCRIBE, acting as scribe for Ferny Astorga MD. Ferny Astorga MD: This documentation has been prepared by the scribe, Merna Medina SCRIBE, under my direction and personally reviewed by me in its entirety. I confirm that the documentation accurately reflects all work, treatment, procedures, and medical decision making performed by me. Attending Attestation - Resident Resident Name: Nahomy Edmonds - ED Attending Attestation I have performed the following: I have examined & evaluated the patient, The case was reviewed & discussed with the resident, I agree w/resident's findings & plan, Exceptions are as noted - HPI HPI: 03/02/19 19:18 The patient is a 73-year-old male with a past medical history significant for HTN, HLD, DM, COPD, CHF, Prostate CA, and s/p cholecystectomy (on 02/[address] Eckert) who presents to the emergency department with right 2nd digit pain with swelling. The patient reports about 2 days ago he was woken up from sleep with right 2nd digit pain, which has been progressively worsening. Denies trauma or injury to the hand. The patient reports pain and itching to the finger, thats aggravated with movement, with mild relief noted with Oxycodone, which he was prescribed after the surgery. Denies prior similar pain. Allergies: azithromycin and ibuprofen Social history: Former smoker, no reported history of alcohol or recreational drug use. Surgical history: bilateral cataract extraction and cholecystectomy PCP: Dr. Patel. - Physicial Exam PE: 03/02/19 19:11 Physical Exam: General: No acute distress, well appearing Extremity: Mild swelling/erythema on dorsal aspect of R 2nd MCP, slightly warm to touch, no pain with passive RPM. No significant swelling to the 2nd digit. No tenderness at on the flexor tendons. No signs of streaking. no tenderness proxmially - Medical Decision Making 03/02/19 18:18 73y M hx of htn, hl, copd, prostate ca presents with complaint of recently discharged for cholecystecmty. Pt presenting with complaint of pain to the R 2nd MCP - the pain started approx 2 days ago at night and has been getting progressively worse. No recent trauma, falls, injuries. Pain is itching/painful and hurts to move his hand. possible mild cellulitis sp iv or lab draw? erythema/swelling is localized to the dorsal aspect of 2nd R mcp. no signs of flexor tenorsinovitis will obtain xray to further evaluate will give pain meds labs unremarkable will reassess 03/02/19 21:08 labs reviewed no leukocytosis pts xray noted for mild joint narrowing - some arthritis as pt is on prednisone daily will give abx coverage due to possibl celulitis will dc with pmd fu returnp recautions were discussed I discussed the physical exam findings, ancillary test results and final diagnoses with the patient. I answered all of the patient's questions. The patient was satisfied with the care received and felt comfortable with the discharge plan and treatment plan. The patient will call their primary care physician within 24 hours to arrange follow-up and will return to the Emergency Department with any new, persistent or worsening symptoms.
[2019-03-02 19:27] LABS: ERYTHROCYTE SEDIMENTATION RATE 34 mm/hr (0-20)
[2019-03-02] MEDS ORDERED: ACETAMINOPHEN 325 MG TABLET (FP) ONE (20:02)
[2019-03-02] MEDS ORDERED: CEPHALEXIN MONOHYDRATE 500 MG CAPSULE (UD) PO ONE (21:22)
[2019-03-02] MEDS ORDERED: CEPHALEXIN MONOHYDRATE 500 MG CAPSULE (UD) ONE (21:35)
== END 2019-03-02 21:49 | disposition home or self-care (01) ==
LOC: JER 16:34
DX: M25.421 Effusion, right elbow (principal); L03.113 Cellulitis of right upper limb; I10 Essential (primary) hypertension; E78.5 Hyperlipidemia, unspecified; E11.9 Type 2 diabetes mellitus without complications; J44.9 Chronic obstructive pulmonary disease, unspecified; I50.9 Heart failure, unspecified; Z85.46 Personal history of malignant neoplasm of prostate; Z85.820 Personal history of malignant melanoma of skin; Z88.8 Allergy status to other drugs, medicaments and biological substances
CPT/HCPCS: 36415; 73130-TC-RT-FY; 80053; 85025; 85651; 86140; 99283-25

== ENCOUNTER 2019-03-04 19:17 | Inpatient (IN) | payer OTHER ==
--- NOTE | 2019-03-04 20:47 | PDOC ---
History of Present Illness - General Chief Complaint: Edema Stated Complaint: RT HAND SWELLING Time Seen by Provider: 03/04/19 20:40 History Source: Patient Exam Limitations: No Limitations - History of Present Illness Initial Comments: 03/04/19 20:46 Source: Patient HPI: 73yo M with PMH COPD, HTN, HLD, DM, and CHF, prostate CA, s/p evan (1.5 weeks ago) and ED resentation 03/02 for R hand cellulitis discharged on keflex ( reportedly compliant) presenting with worsening right hand/wrist pain for the past 2 days with inability to range 2/2 pain. No trauma or previous history of pain to the site - multiple hand IVs placed during recent admission. Worsening pain with movement. Denies fevers, chills, chest, pain, nausea, vomiting, tobacco, drug, or EtOH use. Denies numbness / tingling in the extremity. All: ibuprofen and azithromycin Meds: per chart PMH: as above PSH: as above Past History - Travel Traveled outside of the country in the last 30 days: No Close contact w/someone who was outside of country & ill: No - Past Medical History Allergies/Adverse Reactions: Allergies Allergy/AdvReac Type Severity Reaction Status Date / Time ibuprofen [From Advil] Allergy Unknown Vomiting Verified 03/02/19 16:58 azithromycin [From Zithromax] AdvReac Mild Vomiting Verified 03/02/19 16:58 Home Medications: Ambulatory Orders Aspirin [ASA -] 81 mg PO DAILY #0 tab.chew 07/31/14 Rosuvastatin [Crestor -] 10 mg PO DAILY 12/05/16 Furosemide [Lasix -] 20 mg PO DAILY 10/09/17 Albuterol 0.083% Nebulizer Jacki [Ventolin 0.083% Nebulizer Soln -] 1 neb NEB Q4H PRN #20 vial 10/25/17 Albuterol Sulfate Inhaler - [Ventolin HFA Inhaler -] 1 - 2 inh PO Q4H PRN #1 inhaler 10/25/17 Budesonide/Formeterol Fumarate [SYMBICORT 160/4.5mcg -] 1 inh PO BID 02/02/18 Bicalutamide [Casodex] 50 mg PO DAILY 12/25/18 Montelukast Na [Singulair -] 10 mg PO HS 02/12/19 Prednisone 5 mg PO DAILY 02/12/19 Acetaminophen [Tylenol .Regular Strength -] 650 mg PO Q6H PRN tablet 02/21/19 Docusate Sodium [Colace -] 300 mg PO HS #90 capsule 02/21/19 Magnesium Hydroxide [Milk of Magnesia] 30 ml PO DAILY PRN #1 bot 02/21/19 Polyethylene Glycol 3350 [Miralax (For Daily Use) -] 17 gm PO TID PRN #1 bottle 02/21/19 Sennosides [Senna -] 2 tab PO HS #60 tablet 02/21/19 Tamsulosin HCl [Flomax -] 0.8 mg PO DAILY@1800 #60 cap.er.24h 02/21/19 metFORMIN HCL [Glucophage -] 500 mg PO BID@0700,1630 #60 tablet 02/21/19 oxyCODONE HCL [Roxicodone -] 5 mg PO TID PRN #15 tablet MDD 3 02/21/19 Cephalexin Monohydrate [Keflex -] 500 mg PO Q6H #20 capsule 03/02/19 Anemia: No Asthma: Yes Cancer: Yes (ca prostate) Cardiac Disorders: Yes (CHF) CVA: No COPD: Yes CHF: Yes DVT: Yes Dementia: No Diabetes: Yes (NO MED - RELATED PREDISONE) GI Disorders: Yes (GERD, COLON POLYP) Disorders: Yes (ENLARGED PROSTATE) HTN: Yes Hypercholesterolemia: Yes Liver Disease: No Seizures: No Thyroid Disease: No - Surgical History Abdominal Surgery: No Appendectomy: No Cardiac Surgery: No Cholecystectomy: No Lung Surgery: No Neurologic Surgery: No Orthopedic Surgery: No - Immunization History Immunization Up to Date: Yes - Psycho Social/Smoking Cessation Hx Smoking Status: No Smoking History: Former smoker Have you smoked in the past 12 months: No Number of Cigarettes Smoked Daily: 0 If you are a former smoker, when did you quit?: 2001 Information on smoking cessation initiated: No 'Breaking Loose' booklet given: 01/08/12 Hx Alcohol Use: No Drug/Substance Use Hx: No Substance Use Type: None Hx Substance Use Treatment: No Review of Systems - Review of Systems Able to Perform ROS?: Yes Is the patient limited Tam[place] proficient: Yes Constitutional: No: Chills, Diaphoresis, Fever, Weakness HEENTM: No: Recent change in vision, Nose Pain, Nose Congestion, Throat Pain Respiratory: No: Cough, Shortness of Breath, Wheezing Cardiac (ROS): No: Chest Pain, Edema, Irregular Heart Rate, Palpitations, Syncope, Chest Tightness ABD/GI: No: Constipated, Diarrhea, Nausea, Poor Appetite, Poor Fluid Intake, Vomiting : No: Burning, Dysuria, Pain Musculoskeletal: Yes: Symptoms Reported, See HPI, Joint Swelling, Muscle Pain, Muscle Weakness. No: Neck Pain, Joint Stiffness Integumentary: Yes: Symptoms Reported, See HPI, Change in Color, Erythema. No: Pruritus, Rash Neurological: Yes: See HPI. No: Headache, Numbness, Seizure, Tremors, Weakness Psychiatric: No: Stressors, Mood Swings, Change in Appetite Endocrine: No: Excessive Sweating, Flushing, Change in Weight Hematologic/Lymphatic: No: Anemia, Blood Clots, Easy Bleeding All Other Systems: Reviewed and Negative *Physical Exam - Vital Signs Last Vital Signs Temp Pulse Resp BP Pulse Ox 98.4 F 64 19 151/70 100 03/04/19 19:36 03/04/19 19:36 03/04/19 19:36 03/04/19 19:36 03/04/19 20:09 - Physical Exam Comments: 03/04/19 21:16 AFVSS WDWN man, appears stated age, NAD, laying in hospital bed MMM, EMOI, NCAT, trachea midline RRR, nl s1/s2, no murmurs CTABL, normal WOB, no wheezes / rales / rhonchi Soft, nontender, nondistended WWP, RUE with warm, erythematous, swollen, extending onto the most distal forearm, no crepitus, no obvious skin breaks / fluctuance / induration or drainage Alert and oriented, CN grossly intact, unable to range R wrist or fingers, pain with protonation or the forearm 2+ radial puses bilaterally ED Treatment Course - LABORATORY CBC & Chemistry Diagram: 03/05/19 06:45 03/05/19 06:45 Medical Decision Making - Medical Decision Making 03/04/19 21:12 73yo M with PMH COPD, HTN, HLD, DM, and CHF, prostate CA, s/p evan (1.5 weeks ago) and ED presentation 03/02 for R hand cellulitis discharged on keflex ( reportedly compliant) presenting with worsening right hand/wrist pain for the past 2 days with inability to range 2/2 pain. Failure of outpatient antibiotics , patient will require admission for IV abx and management. Without fevers / chills, exam of RUE c/w cellulitic changes. DDX: cellulitis, soft tissue infection less likely, tenosynovitis less likely but patient with extremely reduced ROM so low threshold for CT. -CBC, CMP, BGM -Tylenol, Vancomycin, Zosyn -Xray R hand -Will consider IVF pending BGM -EKG 03/04/19 22:49 -EKG unchanged from prior, NSR, nl axis, normal intervals, no ischemic changes -Hand XRAY without fracture or subcutaneous emphysema on my read -Labs notable for leukocytosis 03/04/19 23:36 -Signout given to hospitalist team -Ordered for CT R hand to r/o tenosynovitis given extreme difficulty with ROM 03/05/19 19:10 -Hand CT without signs of tenosynovitis, some arthritic changes Discharge - Discharge Information Problems reviewed: Yes Clinical Impression/Diagnosis: Cellulitis of hand, right Condition: Guarded - Admission Yes - Follow up/Referral - Patient Discharge Instructions - Post Discharge Activity
[2019-03-04] MEDS ORDERED: ACETAMINOPHEN 1000 MG/100 ML VIAL (NON FORMULARY) IVPB ONE (21:04)
[2019-03-04] MEDS ORDERED: ACETAMINOPHEN INJECTION 100 ML IVPB ONE (21:29)
[2019-03-04] MEDS ORDERED: PIPERACILLIN/TAZOB 4.5 GM 4.5 GM in DEXTROSE 5%-WATER 100 ML IVPB ONE (21:30)
[2019-03-04] MEDS ORDERED: VANCOMYCIN 1 GM in D5W (PRE-DOCKED) 1,000 MG/250 ML IVPB ONE (21:30)
[2019-03-04] MEDS ORDERED: PIPERACILLIN/TAZOB 4.5 GM 4.5 GM/100 ML BAG IVPB ONE (21:34)
[2019-03-04] MEDS ORDERED: VANCOMYCIN 1 GRAM (PRE-DOCKED) 1,000 MG/250 ML BAG IVPB ONE (21:34)
[2019-03-04 21:36] LABS: BASO % 1.6 % (0-2.0); EOS % 4.1 % (0-4.5); HEMATOCRIT 38.8 % (35.4-49); HEMOGLOBIN 12.9 GM/dL (11.7-16.9); LYMPH % 22.8 % (8-40); MCH 29.1 pg (25.7-33.7); MCHC 33.3 g/dl (32.0-35.9); MEAN CELL VOLUME 87.5 fl (80-96); MEAN PLT VOLUME 8.7 fl (7.5-11.1); MONO % 12.1 % (3.8-10.2); NEUT % 59.4 % (42.8-82.8); PLATELET COUNT 369 K/MM3 (134-434); RBC 4.44 M/mm3 (4.00-5.60); RDW 13.2 % (11.9-15.9)
--- NOTE | 2019-03-04 21:38 | PDOC ---
Documentation entered by Rakan Castro SCRIBE, acting as scribe for Genia Andrew MD. Genia Andrew MD: This documentation has been prepared by the Matthew tan Nirvannie, SCRIBE, under my direction and personally reviewed by me in its entirety. I confirm that the documentation accurately reflects all work, treatment, procedures, and medical decision making performed by me. Attending Attestation - Resident Resident Name: John Whitehead - ED Attending Attestation I have performed the following: I have examined & evaluated the patient, The case was reviewed & discussed with the resident, I agree w/resident's findings & plan - HPI HPI: 03/04/19 21:35 The patient is a 73 year old male, with a significant past medical history of COPD, HTN, HLD, DM, and CHF, prostate cancer, who presents to the emergency department with, worsening right hand and wrist pain. Patient was recently seen in the ED 03/02 for right hand cellulitis and discharged on Keflex. He denies any recent chest pain or shortness of breath. Allergies: Ibuprofen, azithromycin. - Physicial Exam PE: 03/04/19 21:[address] Whitehead's physical exam. - Medical Decision Making 03/04/19 21:37 This 73 yo male p/w right hand cellulitis that has failed outpatient antibiotics and will be admitted to med/surg
[2019-03-04 22:13] LABS: ALBUMIN 3.4 g/dl (3.4-5.0); BILIRUBIN,TOTAL 0.8 mg/dL (0.2-1); BLOOD UREA NITROGEN 12.4 mg/dL (7-18); CALCIUM 9.5 mg/dL (8.5-10.1); POTASSIUM 3.8 mmol/L (3.5-5.1); TOT PROT 7.2 g/dl (6.4-8.2)
--- NOTE | 2019-03-05 01:01 | HP ---
Admitting History and Physical - Primary Care Physician PCP: - Admission Chief Complaint: Right hand swelling, pain, poor movement History of Present Illness: 73 year old male, with PMH of COPD, HTN, HLD, DM, and CHF, prostate cancer, s/p recent evan, who presents to the emergency department with, worsening of right hand and wrist pain with very limited movement of the hand. Patient was recently seen in the ED 03/02 for right hand cellulitis and discharged on Keflex.Likely failed outpatient treatment, patient denies SOB/CP, fever, chills , N/V/C/D, denies numbness, tingling, denies urinary symptoms. History Source: Patient Limitations to Obtaining History: No Limitations - Past Medical History Cardiovascular: Yes: CHF, HTN, Hyperlipdemia Pulmonary: Yes: COPD Gastrointestinal: Yes: Constipation, Ulcerative Colitis (PULM/CCM ) Renal/: Yes: BPH, Cancer (prostate cancer) Endocrine: Yes: Diabetes Mellitus - Past Surgical History Past Surgical History: Yes: Cholecystectomy - Smoking History Smoking history: Former smoker Have you smoked in the past 12 months: No Aproximately how many cigarettes per day: 0 If you are a former smoker, when did you quit?: 2001 - Alcohol/Substance Use Hx Alcohol Use: No History of Substance Use: reports: None - Social History ADL: Independent 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 building [email or web address] History of Recent Travel: No Home Medications - Allergies Allergies/Adverse Reactions: Allergies Allergy/AdvReac Type Severity Reaction Status Date / Time ibuprofen [From Advil] Allergy Unknown Vomiting Verified 03/02/19 16:58 azithromycin [From Zithromax] AdvReac Mild Vomiting Verified 03/02/19 16:58 - Home Medications Home Medications: Ambulatory Orders Aspirin [ASA -] 81 mg PO DAILY #0 tab.chew 07/31/14 Rosuvastatin [Crestor -] 10 mg PO DAILY 12/05/16 Furosemide [Lasix -] 20 mg PO DAILY 10/09/17 Albuterol 0.083% Nebulizer Jacki [Ventolin 0.083% Nebulizer Soln -] 1 neb NEB Q4H PRN #20 vial 10/25/17 Albuterol Sulfate Inhaler - [Ventolin HFA Inhaler -] 1 - 2 inh PO Q4H PRN #1 inhaler 10/25/17 Budesonide/Formeterol Fumarate [SYMBICORT 160/4.5mcg -] 1 inh PO BID 02/02/18 Bicalutamide [Casodex] 50 mg PO BID 12/25/18 Montelukast Na [Singulair -] 10 mg PO HS 02/12/19 Prednisone 5 mg PO DAILY 02/12/19 Acetaminophen [Tylenol .Regular Strength -] 650 mg PO Q6H PRN tablet 02/21/19 Docusate Sodium [Colace -] 300 mg PO HS #90 capsule 02/21/19 Magnesium Hydroxide [Milk of Magnesia] 30 ml PO DAILY PRN #1 bot 02/21/19 Polyethylene Glycol 3350 [Miralax (For Daily Use) -] 17 gm PO TID PRN #1 bottle 02/21/19 Sennosides [Senna -] 2 tab PO HS #60 tablet 02/21/19 Tamsulosin HCl [Flomax -] 0.8 mg PO DAILY@1800 #60 cap.er.24h 02/21/19 metFORMIN HCL [Glucophage -] 500 mg PO BID@0700,1630 #60 tablet 02/21/19 oxyCODONE HCL [Roxicodone -] 5 mg PO TID PRN #15 tablet MDD 3 02/21/19 Cephalexin Monohydrate [Keflex -] 500 mg PO Q6H #20 capsule 03/02/19 Family Medical History Family History: Denies Review of Systems - Review of Systems Constitutional: reports: No Symptoms Eyes: reports: No Symptoms HENT: reports: No Symptoms Neck: reports: No Symptoms Cardiovascular: reports: No Symptoms Respiratory: reports: No Symptoms Gastrointestinal: reports: No Symptoms Genitourinary: reports: No Symptoms Musculoskeletal: reports: Decreased ROM, Extremity Pain, Joint Pain, Joint Swelling (right hand/wrist pain for the past 2 days with inability to range, warm to touch) Integumentary: reports: No Symptoms Neurological: reports: No Symptoms Endocrine: reports: No Symptoms Physical Examination Vital Signs: Vital Signs Temperature 98.7 F 03/04/19 23:27 Pulse Rate 98 H 03/04/19 23:27 Respiratory Rate 18 03/04/19 23:27 Blood Pressure 152/72 03/04/19 23:27 O2 Sat by Pulse Oximetry (%) 100 03/04/19 23:30 Constitutional: Yes: No Distress, Calm Eyes: Yes: Conjunctiva Clear, EOM Intact HENT: Yes: Atraumatic, Normocephalic Neck: Yes: Supple, Trachea Midline Cardiovascular: Yes: Regular Rate and Rhythm Respiratory: Yes: Regular, CTA Bilaterally Gastrointestinal: Yes: Normal Bowel Sounds, Soft Musculoskeletal: Yes: Joint Stiffness, Joint Swelling, Muscle Pain (RUE with warm, swollen, extending onto the most distal forearm, unable to make fist, pain with movement) Peripheral Pulses WNL: Yes Neurological: Yes: Alert, Oriented Labs: CBC, BMP 03/04/19 21:10 03/04/19 21:10 Imaging - Results X-ray: Report Reviewed (XR right hand - no acute fracture noted) EKG: Report Reviewed (EKG: NSR, no ischemic changes) Other: Report Reviewed (noted with leukocytosis wbc: 13) Problem List - Problems (1) Cellulitis of hand, right Code(s): L03.113 - CELLULITIS OF RIGHT UPPER LIMB (2) Swelling of joint, hand, right Code(s): M25.441 - EFFUSION, RIGHT HAND (3) CHF (congestive heart failure) Code(s): I50.9 - HEART FAILURE, UNSPECIFIED (4) COPD (chronic obstructive pulmonary disease) Code(s): J44.9 - CHRONIC OBSTRUCTIVE PULMONARY DISEASE, UNSPECIFIED Qualifiers: COPD type: unspecified COPD Qualified Code(s): J44.9 - Chronic obstructive pulmonary disease, unspecified (5) DM (diabetes mellitus) Code(s): E11.9 - TYPE 2 DIABETES MELLITUS WITHOUT COMPLICATIONS Qualifiers: Diabetes mellitus type: type 2 Diabetes mellitus terminal system operator insulin use: with residential use Diabetes mellitus complication status: with other specified complication Qualified Code(s): E11.69 - Type 2 diabetes mellitus with other specified complication; Z79.4 - long-term (current) use of insulin (6) HTN (hypertension) Code(s): I10 - ESSENTIAL (PRIMARY) HYPERTENSION Qualifiers: Hypertension type: essential hypertension Qualified Code(s): I10 - Essential (primary) hypertension (7) Hyperlipemia Code(s): E78.5 - HYPERLIPIDEMIA, UNSPECIFIED (8) Prostate cancer Code(s): C61 - MALIGNANT NEOPLASM OF PROSTATE Assessment/Plan 73 year old male, with PMH of COPD, HTN, HLD, DM, and CHF, prostate cancer, s/p evan (1.5 weeks ago), who presents to the emergency department with, worsening of right hand and wrist pain with very limited movement of the hand. Patient was recently seen in the ED 03/02 for right hand cellulitis and discharged on Keflex. However returned 03/04 due to failed outpatient treatment. # Right hand cellulitis # Rule out tenosynovitis -EKG: NSR,normal intervals, no ischemic changes -Right Hand XR: No acute fracture noted -Labs: leukocytosis wbc: 13 -In ED given IV Tylenol, Vanco, Zosyn -Pending results for CT R hand (extreme difficulty with ROM) -pain management -elevate extremity -continue with IV Zosyn, pending ID follow up -repeat cbc, bmp in AM # HTN/HLD # CHF -Rosuvastatin 10 mg PO DAILY -Furosemide 20 mg PO DAILY -Monitor I &O -Fluid restriction -Sodium restrict diet # constipation - Continue with colace, senna, and Miralax - monitor for acute constipation recent s/p evan # BPH # Prostate Ca - continue with flomax 0.4 mg Q HS - Bicalutamide 50 mg PO BID # COPD - Montelukast Na 10 mg PO HS - nebs PRN # DM - monitor FSBS TID AC - coverage with Novolog sliding scale Diet: JANY, NCS, low/fat/chol DVT PPX: Heparin SQ Visit type - Emergency Visit Emergency Visit: Yes ED Registration Date: 03/04/19 Care time: The patient presented to the Emergency Department on the above date and was hospitalized for further evaluation of their emergent condition. - New Patient This patient is new to me today: Yes Date on this admission: 03/05/19 - Critical Care Critical Care patient: No
[2019-03-05] MEDS ORDERED: ALBUTEROL SO4 0.083% IH SOL 2.5 MG/3 ML VIAL.NEB. NEB PRN (01:23)
[2019-03-05] MEDS ORDERED: oxyCODONE HCL 5 MG TABLET PO PRN (01:23)
[2019-03-05 01:29] VITALS: BMI 30.7
[2019-03-05] MEDS: traMADol HCL 50 MG TABLET PO PRN ×3 (02:02→21:17)
[2019-03-05] MEDS ORDERED: PIPERACILLIN/TAZOBACTAM 3.375 GM VIAL IVPB ONE ×3 (02:29→18:29)
[2019-03-05] MEDS ORDERED: DEXTROSE 5%-WATER - 50 ML IVPB ONE ×3 (02:29→18:29)
[2019-03-05] MEDS: PIPERACILLIN/TAZOB 3.375 GM 3.375 GM in DEXTROSE 5%-WATER - 50 ML IVPB SCH ×3 (02:45→18:33)
[2019-03-05] MEDS: INSULIN SLIDING SCALE (NOVOLOG) 1 VIAL SQ SCH ×3 (07:08→18:26)
[2019-03-05] MEDS ORDERED: INSULIN (NOVOLOG) ASPART 100 UNITS/ML 10ML VIAL ONE (07:11)
[2019-03-05 07:23] LABS: HEMATOCRIT 35.4 % (35.4-49); HEMOGLOBIN 12.2 GM/dL (11.7-16.9); MCH 29.8 pg (25.7-33.7); MCHC 34.4 g/dl (32.0-35.9); MEAN CELL VOLUME 86.8 fl (80-96); MEAN PLT VOLUME 8.5 fl (7.5-11.1); PLATELET COUNT 326 K/MM3 (134-434); RBC 4.08 M/mm3 (4.00-5.60)
[2019-03-05 07:57] LABS: BLOOD UREA NITROGEN 12.8 mg/dL (7-18); CALCIUM 9.5 mg/dL (8.5-10.1); POTASSIUM 3.8 mmol/L (3.5-5.1)
[2019-03-05] MEDS ORDERED: BICALUTAMIDE 50 MG TABLET (FP) PO SCH (10:00)
--- NOTE | 2019-03-05 10:10 | PN ---
Progress Note, Physician Chief Complaint: R Hand Cellulitis History of Present Illness: Previous notes and events reviewed awake and alert NAD complain of R hand pain, tender with palpation no acute events overnight WBC showing downtrend - Current Medication List Current Medications: Active Medications Acetaminophen (Tylenol -) 650 mg PO Q6H PRN PRN Reason: PAIN LEVEL 1-5 Albuterol Sulfate (Ventolin 0.083% Nebulizer Soln -) 1 amp NEB Q4H PRN PRN Reason: ASTHMA Bicalutamide (Casodex -) 50 mg PO BID BRIT Docusate Sodium (Colace -) 200 mg PO HS BRIT Furosemide (Lasix -) 20 mg PO DAILY BRIT Heparin Sodium (Porcine) (Heparin -) 5,000 unit SQ BID BRIT Piperacillin Sod/Tazobactam (Sod 3.375 gm/ Dextrose) 50 mls @ 100 mls/hr IVPB Q8H-IV BRIT Stop: 03/05/19 10:29 Last Admin: 03/05/19 02:45 Dose: 100 mls/hr Piperacillin Sod/Tazobactam (Sod 3.375 gm/ Dextrose) 50 mls @ 100 mls/hr IVPB Q8H-IV [facility]IT Insulin Aspart (Novolog Vial Sliding Scale -) 1 vial SQ TIDAC [facility]; Protocol Last Admin: 03/05/19 07:08 Dose: Not Given Montelukast Sodium (Singulair -) 10 mg PO HS [facility] Polyethylene Glycol (Miralax (For Daily Use) -) 17 gm PO TID PRN PRN Reason: CONSTIPATION Rosuvastatin Calcium (Crestor -) 10 mg PO HS [facility] Senna (Senna -) 2 tab PO HS [facility] Tamsulosin HCl (Flomax -) 0.8 mg PO DAILY@1800 BRIT Tramadol HCl (Ultram -) 50 mg PO Q8H PRN PRN Reason: PAIN LEVEL 6-10 Last Admin: 03/05/19 02:02 Dose: 50 mg - Objective Vital Signs: Vital Signs Temperature 98.8 F 03/05/19 07:07 Pulse Rate 54 L 03/05/19 07:07 Respiratory Rate 20 03/05/19 07:07 Blood Pressure 125/72 03/05/19 07:07 O2 Sat by Pulse Oximetry (%) 100 03/04/19 23:30 Constitutional: Yes: No Distress, Calm Eyes: Yes: Conjunctiva Clear HENT: Yes: Atraumatic Cardiovascular: Yes: Regular Rate and Rhythm Respiratory: Yes: Regular, CTA Bilaterally Gastrointestinal: Yes: Normal Bowel Sounds, Soft Musculoskeletal: Yes: Other (R hand pain) Extremities: Yes: WNL Edema: Yes (R hand) Integumentary: Yes: Erythema (R hand) Neurological: Yes: Alert, Oriented Psychiatric: Yes: Alert, Oriented Labs: CBC, BMP 03/05/19 06:45 03/05/19 06:45 Problem List - Problems (1) Cellulitis of hand, right Assessment/Plan: -ID on board -Leukocytosis WBC 11.0 -afebrile -Zosyn -pain control Code(s): L03.113 - CELLULITIS OF RIGHT UPPER LIMB (2) CHF (congestive heart failure) Assessment/Plan: -Furosemide -daily weights -strict I&Os -low Na diet Code(s): I50.9 - HEART FAILURE, UNSPECIFIED (3) COPD (chronic obstructive pulmonary disease) Assessment/Plan: -O2 via NC -keep SpO2 >90% -Bronchodilators -Montelukast -Symbicort Code(s): J44.9 - CHRONIC OBSTRUCTIVE PULMONARY DISEASE, UNSPECIFIED Qualifiers: COPD type: unspecified COPD Qualified Code(s): J44.9 - Chronic obstructive pulmonary disease, unspecified (4) HTN (hypertension) Assessment/Plan: -low Na diet -monitor BP Code(s): I10 - ESSENTIAL (PRIMARY) HYPERTENSION Qualifiers: Hypertension type: essential hypertension Qualified Code(s): I10 - Essential (primary) hypertension (5) Swelling of joint, hand, right Assessment/Plan: -pain contril -Upper Extremity CT scan shows mild degenerative arthritis with no fracture or avute bony abnormalities -Rheumatology consult Code(s): M25.441 - EFFUSION, RIGHT HAND (6) HLD (hyperlipidemia) Code(s): E78.5 - HYPERLIPIDEMIA, UNSPECIFIED (7) DM (diabetes mellitus) Assessment/Plan: -BGM ACHS -Metformin -ISS -low Na diabetic diet Code(s): E11.9 - TYPE 2 DIABETES MELLITUS WITHOUT COMPLICATIONS Qualifiers: Diabetes mellitus type: type 2 Diabetes mellitus termite treater insulin use: with termite treater use Diabetes mellitus complication status: with other specified complication Qualified Code(s): E11.69 - Type 2 diabetes mellitus with other specified complication; Z79.4 - longterm (current) use of insulin Assessment/Plan see problem list dvt ppx
[2019-03-05] MEDS ORDERED: PT OWN MED DRAWER 7, Y5N ONE ×2 (10:42→21:16)
[2019-03-05] MEDS: ACETAMINOPHEN 325 MG TABLET (FP) PO PRN (10:50)
[2019-03-05] MEDS: FUROSEMIDE 20 MG TABLET (FP) PO SCH (10:50)
[2019-03-05] MEDS: HEPARIN NA (PORCINE) 5,000 UNITS/ML 1ML VIAL SQ SCH ×2 (10:50→21:21)
[2019-03-05] MEDS ORDERED: ALBUTEROL SO4 8 GM HFA INHALER IH PRN (12:09)
[2019-03-05] MEDS: BICALUTAMIDE 50 MG TABLET (FP) PO SCH (12:14)
--- NOTE | 2019-03-05 12:26 | PN ---
Progress Note (short form) - Note Progress Note: ID CONSULT DICTATED R HAND SWELLING/ PAIN/ ERYTHEMA NO HX TRAUMA ? CELLULITIS ? ACUTE GOUTY ARTHRITIS LEUKOCYTOSIS S/P LAP KELSEY/ HERNIA REPAIR 02/19 OBTAIN BLOOD C/S, URIC ACID, ESR, CRP EMPIRIC ZOSYN/ VANCOMYCIN HAND SURGERY EVALUATION ELEVATION ANALGESICS
[2019-03-05] MEDS ORDERED: VANCOMYCIN 1,000 MG in DEXTROSE 5%-WATER - 250 ML IVPB SCH (13:00)
[2019-03-05] MEDS: VANCOMYCIN 1 GRAM (PRE-DOCKED) 1,000 MG/250 ML BAG IVPB SCH (13:08)
--- NOTE | 2019-03-05 13:44 | CONS ---
INFECTIOUS DISEASE CONSULTATION DATE OF CONSULTATION: DATE OF DICTATION: 03/05/2019 HISTORY: The patient is a 73-year-old male who is evaluated for cellulitis of the right hand. The patient was recently admitted to [facility] from February 13 through February 21. He had been diagnosed with acute cholecystitis and had undergone a laparoscopic cholecystectomy with repair of umbilical hernia on February 19, 2019. Patient reports that while he was in the hospital at that time he began to develop pain and swelling of the right hand. It became progressively worse after his hospital discharge. He was seen in the emergency room on March 02 at which time he was diagnosed with cellulitis of the hand and prescribed Keflex. Despite the antibiotic therapy, it did not improve. He now returns with worsening pain and swelling of the right hand. He was noted to have swelling and erythema of the right 2nd MCP joint. He denies any traumatic injury. He states he did not have any phlebotomy or IVs in that hand to the best of his knowledge. He denies prior history of joint swelling or history of gouty arthritis. PAST MEDICAL HISTORY: Positive for diabetes mellitus, hypertension, hyperlipidemia, COPD, congestive heart failure, prostate cancer, history of positive nares culture MRSA from February 13, 2019. ALLERGIES: ZITHROMAX and IBUPROFEN. MEDICATIONS: Include Tylenol, albuterol, aspirin, Casodex, Colace, Lasix, Glucophage, Singulair, Tramadol. SOCIAL HISTORY: He resides in the community. He is a former smoker. He is retired. SYSTEMS REVIEW: Neurologic: No loss of consciousness, seizure activity, focal weakness. Cardiac: Negative chest pain or palpitations. Respiratory: Negative cough or sputum production. Gastrointestinal: Negative vomiting or diarrhea. Genitourinary: Negative for urinary tract infection. LABORATORY DATA: White count on admission 13, presently 11.0, hematocrit 35.4, platelets 326, lactic acid 1.4. BUN 12, creatinine 1.0. CAT scan of the right hand negative for fracture or dislocation. Positive for arthritic changes. Uric acid pending. PHYSICAL EXAMINATION: General: He is awake and alert. Supine in bed. Vital Signs: Temperature 98.8, blood pressure 125/72, pulse 54 regular, respirations 18 per minute. HEENT: Sclerae anicteric. Heart: Sounds S1, S2. No murmur. Lungs: Clear. Abdomen: Soft. Slightly distended and tympanitic. Extremities: Negative for pedal edema. No foot swelling noted. Examination of the right hand, there is swelling of the 2nd MCP joint with diffuse swelling of the 2nd digit. There is diffuse swelling of the dorsum of the hand extending to the wrist. There is faint erythema present on the dorsal aspect of the right hand as well as flexor aspect of the wrist. The hand is exquisitely tender to manipulation, warm to touch. There is no crepitus or fluctuance. No lymphangitic streaking. IMPRESSION: 1. Right hand pain swelling/pain/erythema without history of traumatic injury, rule out cellulitis. 2. Rule out acute gouty arthritis. 3. Leukocytosis. 4. Status post laparoscopic cholecystectomy and hernia repair. Etiology of pain and swelling of the right hand not known. No history of trauma or phlebotomy to suggest a cellulitis. Concerned about the possibility of acute gouty arthritis in light of recent postoperative state. PLAN: Obtain blood cultures, uric acid, sedimentation rate, C-reactive protein. Continue empiric antibiotic coverage with vancomycin and Zosyn. Hand surgery evaluation. Elevation. Analgesics. Thank you for the kind referral. SAM ANDERS M.D. [id number]
--- NOTE | 2019-03-05 15:54 | EKG ---
Test Reason : Blood Pressure : / mmHG Vent. Rate : 058 BPM Atrial Rate : 058 BPM P-R Int : 178 ms QRS Dur : 100 ms QT Int : 438 ms P-R-T Axes : 027 025 046 degrees QTc Int : 429 ms SINUS BRADYCARDIA OTHERWISE NORMAL ECG WHEN COMPARED WITH ECG OF 12-FEB-2019 17:44, NO SIGNIFICANT CHANGE WAS FOUND Confirmed by JUANA ESCOBAR MD ([id number]) on 03/05/2019 3:53:44 PM Referred By: Confirmed By:JUANA ESCOBAR MD
[2019-03-05] MEDS ORDERED: PIPERACILLIN/TAZOB 3.375 GM 3.375 GM in DEXTROSE 5%-WATER - 50 ML IVPB SCH (18:00)
[2019-03-05] MEDS: TAMSULOSIN HCL 0.4 MG CAP PO SCH (18:33)
[2019-03-05] MEDS: metFORMIN HCL 500 MG TABLET (FP) PO SCH (18:33)
[2019-03-05] MEDS: SENNOSIDES 8.6MG TABLET (FP) PO SCH (21:09)
[2019-03-05] MEDS: ROSUVASTATIN CA 10 MG TABLET (FP) PO SCH (21:09)
[2019-03-05] MEDS: DOCUSATE SODIUM 100 MG CAPSULE (FP) PO SCH (21:09)
[2019-03-05] MEDS: MONTELUKAST NA 10 MG TABLET PO SCH (21:09)
[2019-03-05] MEDS: BUDESONIDE/FORMETEROL FUMARATE 160/4.5 mcg INHALER IH SCH (21:17)
[2019-03-06] MEDS ORDERED: DEXTROSE 5%-WATER - 50 ML IVPB ONE ×3 (00:15→18:06)
[2019-03-06] MEDS ORDERED: PIPERACILLIN/TAZOBACTAM 3.375 GM VIAL IVPB ONE ×3 (00:15→18:06)
[2019-03-06] MEDS: VANCOMYCIN 1 GRAM (PRE-DOCKED) 1,000 MG/250 ML BAG IVPB SCH ×2 (00:32→14:26)
[2019-03-06] MEDS: PIPERACILLIN/TAZOB 3.375 GM 3.375 GM in DEXTROSE 5%-WATER - 50 ML IVPB SCH ×3 (01:55→18:21)
[2019-03-06] MEDS: ACETAMINOPHEN 325 MG TABLET (FP) PO PRN ×3 (02:51→23:09)
[2019-03-06] MEDS ORDERED: INSULIN (NOVOLOG) ASPART 100 UNITS/ML 10ML VIAL ONE ×2 (05:28→11:38)
[2019-03-06] MEDS: traMADol HCL 50 MG TABLET PO PRN ×2 (05:59→23:05)
[2019-03-06] MEDS: metFORMIN HCL 500 MG TABLET (FP) PO SCH ×2 (06:07→18:22)
[2019-03-06] MEDS: INSULIN SLIDING SCALE (NOVOLOG) 1 VIAL SQ SCH ×3 (06:08→18:22)
[2019-03-06 09:01] LABS: HEMATOCRIT 34.8 % (35.4-49); HEMOGLOBIN 11.8 GM/dL (11.7-16.9); MCH 29.6 pg (25.7-33.7); MCHC 33.9 g/dl (32.0-35.9); MEAN CELL VOLUME 87.3 fl (80-96); MEAN PLT VOLUME 9.3 fl (7.5-11.1); PLATELET COUNT 342 K/MM3 (134-434); RBC 3.98 M/mm3 (4.00-5.60); RDW 13.1 % (11.9-15.9); WHITE BLOOD COUNT 10.7 K/mm3 (4.0-10.0)
[2019-03-06 09:33] LABS: BLOOD UREA NITROGEN 14.7 mg/dL (7-18); CALCIUM 9.4 mg/dL (8.5-10.1); CREATININE 0.9 mg/dL (0.55-1.3); POTASSIUM 3.9 mmol/L (3.5-5.1); TOT PROT 6.5 g/dl (6.4-8.2)
[2019-03-06] MEDS: predniSONE 5 MG TABLET (UD) PO SCH (10:03)
[2019-03-06] MEDS: ASPIRIN 81 MG CHEWABLE TABLETS PO SCH (10:03)
[2019-03-06] MEDS: FUROSEMIDE 20 MG TABLET (FP) PO SCH (10:03)
[2019-03-06] MEDS: HEPARIN NA (PORCINE) 5,000 UNITS/ML 1ML VIAL SQ SCH ×2 (10:03→21:34)
[2019-03-06] MEDS ORDERED: PT OWN MED DRAWER 7, Y5N ONE (10:10)
[2019-03-06] MEDS: BICALUTAMIDE 50 MG TABLET (FP) PO SCH (10:12)
[2019-03-06] MEDS: POLYETHYLENE GLYCOL 3350 119 GM BTL PO PRN (10:12)
[2019-03-06] MEDS: BUDESONIDE/FORMETEROL FUMARATE 160/4.5 mcg INHALER IH SCH ×2 (10:16→21:38)
--- NOTE | 2019-03-06 13:38 | PN ---
Progress Note, Physician Chief Complaint: R Hand Cellulitis History of Present Illness: Previous notes and events reviewed awake and alert NAD sts pain to R hand improving more movement noted to R hand, swelling improving - Current Medication List Current Medications: Active Medications Acetaminophen (Tylenol -) 650 mg PO Q6H PRN PRN Reason: PAIN LEVEL 1-5 Last Admin: 03/06/19 10:03 Dose: 650 mg Albuterol Sulfate (Ventolin 0.083% Nebulizer Soln -) 1 amp NEB Q4H PRN PRN Reason: ASTHMA Aspirin (Asa -) 81 mg PO DAILY [facility] Last Admin: 03/06/19 10:03 Dose: 81 mg Bicalutamide (Casodex -) 50 mg PO DAILY [facility] Last Admin: 03/06/19 10:12 Dose: 50 mg Budesonide/Formoterol Fumarate (Symbicort 160/4.5mcg -) 1 puff IH BID [facility] Last Admin: 03/06/19 10:16 Dose: 1 puff Docusate Sodium (Colace -) 200 mg PO [facility] Last Admin: 03/05/19 21:09 Dose: 200 mg Furosemide (Lasix -) 20 mg PO DAILY [facility] Last Admin: 03/06/19 10:03 Dose: 20 mg Heparin Sodium (Porcine) (Heparin -) 5,000 unit SQ BID [facility] Last Admin: 03/06/19 10:03 Dose: 5,000 unit Piperacillin Sod/Tazobactam (Sod 3.375 gm/ Dextrose) 50 mls @ 100 mls/hr IVPB Q8H-IV [facility]; Protocol Last Admin: 03/06/19 10:03 Dose: 100 mls/hr Vancomycin HCl (Vancomycin (Pre-Docked)) 1,000 mg in 250 mls @ 166.667 mls/hr IVPB BID@0100,1300 [facility]; Protocol Last Admin: 03/06/19 00:32 Dose: 166.667 mls/hr Insulin Aspart (Novolog Vial Sliding Scale -) 1 vial SQ TIDAC [facility]; Protocol Last Admin: 03/06/19 11:53 Dose: 2 units Metformin HCl (Glucophage -) 500 mg PO BID@0700,1630 [facility] Last Admin: 03/06/19 06:07 Dose: 500 mg Montelukast Sodium (Singulair -) 10 mg PO [facility] Last Admin: 03/05/19 21:09 Dose: 10 mg Polyethylene Glycol (Miralax (For Daily Use) -) 17 gm PO TID PRN PRN Reason: CONSTIPATION Last Admin: 03/06/19 10:12 Dose: 17 grams Prednisone (Deltasone -) 5 mg PO DAILY [facility] Last Admin: 03/06/19 10:03 Dose: 5 mg Rosuvastatin Calcium (Crestor -) 10 mg PO HS [facility] Last Admin: 03/05/19 21:09 Dose: 10 mg Senna (Senna -) 2 tab PO HS [facility] Last Admin: 03/05/19 21:09 Dose: 2 tab Tamsulosin HCl (Flomax -) 0.8 mg PO DAILY@1800 [facility] Last Admin: 03/05/19 18:33 Dose: 0.8 mg Tramadol HCl (Ultram -) 50 mg PO Q8H PRN PRN Reason: PAIN LEVEL 6-10 Last Admin: 03/06/19 05:59 Dose: 50 mg - Objective Vital Signs: Vital Signs Temperature 98.1 F 03/06/19 10:00 Pulse Rate 78 03/06/19 10:00 Respiratory Rate 20 03/06/19 10:00 Blood Pressure 130/70 03/06/19 10:00 O2 Sat by Pulse Oximetry (%) 98 03/05/19 21:00 Constitutional: Yes: No Distress, Calm Eyes: Yes: Conjunctiva Clear HENT: Yes: Atraumatic Cardiovascular: Yes: Regular Rate and Rhythm Respiratory: Yes: Regular, CTA Bilaterally Gastrointestinal: Yes: Normal Bowel Sounds, Soft Musculoskeletal: Yes: Muscle Weakness Extremities: Yes: WNL Edema: No Integumentary: Yes: Other (edema r hand) Neurological: Yes: Alert, Oriented Psychiatric: Yes: Alert, Oriented Labs: CBC, BMP 03/06/19 07:20 03/06/19 07:20 Microbiology 03/05/19 12:50 Blood - Peripheral Venous Blood Culture - Preliminary NO GROWTH OBTAINED AFTER 24 HOURS, INCUBATION TO CONTINUE FOR 4 DAYS. 03/05/19 12:40 Blood - Peripheral Venous Blood Culture - Preliminary NO GROWTH OBTAINED AFTER 24 HOURS, INCUBATION TO CONTINUE FOR 4 DAYS. Problem List - Problems (1) Cellulitis of hand, right Assessment/Plan: -ID on board -Leukocytosis WBC 10.7 -afebrile -Zosyn -pain control Code(s): L03.113 - CELLULITIS OF RIGHT UPPER LIMB (2) CHF (congestive heart failure) Assessment/Plan: -Furosemide -daily weights -strict I&Os -low Na diet Code(s): I50.9 - HEART FAILURE, UNSPECIFIED (3) COPD (chronic obstructive pulmonary disease) Assessment/Plan: -O2 via NC -keep SpO2 >90% -Bronchodilators -Montelukast -Symbicort Code(s): J44.9 - CHRONIC OBSTRUCTIVE PULMONARY DISEASE, UNSPECIFIED Qualifiers: COPD type: unspecified COPD Qualified Code(s): J44.9 - Chronic obstructive pulmonary disease, unspecified (4) HTN (hypertension) Assessment/Plan: -low Na diet -monitor BP Code(s): I10 - ESSENTIAL (PRIMARY) HYPERTENSION Qualifiers: Hypertension type: essential hypertension Qualified Code(s): I10 - Essential (primary) hypertension (5) Swelling of joint, hand, right Assessment/Plan: -pain contril -Upper Extremity CT scan shows mild degenerative arthritis with no fracture or avute bony abnormalities -Rheumatology consult -Hand surgery consult -Uric acid 3.0, ESR 80, CRP 8.7 Code(s): M25.441 - EFFUSION, RIGHT HAND (6) HLD (hyperlipidemia) Assessment/Plan: -Crestor Code(s): E78.5 - HYPERLIPIDEMIA, UNSPECIFIED (7) DM (diabetes mellitus) Assessment/Plan: -BGM ACHS -Metformin -ISS -low Na diabetic diet Code(s): E11.9 - TYPE 2 DIABETES MELLITUS WITHOUT COMPLICATIONS Qualifiers: Diabetes mellitus type: type 2 Diabetes mellitus exterminator termite insulin use: with exterminator termite use Diabetes mellitus complication status: with other specified complication Qualified Code(s): E11.69 - Type 2 diabetes mellitus with other specified complication; Z79.4 - manager long term care (current) use of insulin Assessment/Plan see problem list dvt ppx
--- NOTE | 2019-03-06 14:26 | CON.ORTH ---
Consult Reason for Consultation:: right hand pain/swelling - Past Medical History Cardio/Vascular: Yes: CHF, HTN, Hyperlipdemia Pulmonary: Yes: COPD Gastrointestinal: Yes: Constipation, Ulcerative Colitis (PULM/CCM ) Renal/: Yes: BPH, Cancer (prostate cancer) Endocrine: Yes: Diabetes Mellitus - Past Surgical History Past Surgical History: Yes: Cholecystectomy - Alcohol/Substance Use Hx Alcohol Use: No History of Substance Use: reports: None - Smoking History Smoking history: Former smoker Have you smoked in the past 12 months: No Aproximately how many cigarettes per day: 0 If you are a former smoker, when did you quit?: 2001 - Social History Usual Living Arrangement: Alone ADL: Independent 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 building [employer] History of Recent Travel: No Home Medications - Allergies Allergies/Adverse Reactions: Allergies Allergy/AdvReac Type Severity Reaction Status Date / Time ibuprofen [From Advil] Allergy Unknown Vomiting Verified 03/02/19 16:58 azithromycin [From Zithromax] AdvReac Mild Vomiting Verified 03/02/19 16:58 - Home Medications Home Medications: Ambulatory Orders Aspirin [ASA -] 81 mg PO DAILY #0 tab.chew 07/31/14 Rosuvastatin [Crestor -] 10 mg PO DAILY 12/05/16 Furosemide [Lasix -] 20 mg PO DAILY 10/09/17 Albuterol 0.083% Nebulizer Jacki [Ventolin 0.083% Nebulizer Soln -] 1 neb NEB Q4H PRN #20 vial 10/25/17 Albuterol Sulfate Inhaler - [Ventolin HFA Inhaler -] 1 - 2 inh PO Q4H PRN #1 inhaler 10/25/17 Budesonide/Formeterol Fumarate [SYMBICORT 160/4.5mcg -] 1 inh PO BID 02/02/18 Bicalutamide [Casodex] 50 mg PO DAILY 12/25/18 Montelukast Na [Singulair -] 10 mg PO HS 02/12/19 Prednisone 5 mg PO DAILY 02/12/19 Acetaminophen [Tylenol .Regular Strength -] 650 mg PO Q6H PRN tablet 02/21/19 Docusate Sodium [Colace -] 300 mg PO HS #90 capsule 02/21/19 Magnesium Hydroxide [Milk of Magnesia] 30 ml PO DAILY PRN #1 bot 02/21/19 Polyethylene Glycol 3350 [Miralax (For Daily Use) -] 17 gm PO TID PRN #1 bottle 02/21/19 Sennosides [Senna -] 2 tab PO HS #60 tablet 02/21/19 Tamsulosin HCl [Flomax -] 0.8 mg PO DAILY@1800 #60 cap.er.24h 02/21/19 metFORMIN HCL [Glucophage -] 500 mg PO BID@0700,1630 #60 tablet 02/21/19 oxyCODONE HCL [Roxicodone -] 5 mg PO TID PRN #15 tablet MDD 3 02/21/19 Cephalexin Monohydrate [Keflex -] 500 mg PO Q6H #20 capsule 03/02/19 Physical Exam for Ortho Vital Signs: Vital Signs Temperature 98.1 F 03/06/19 10:00 Pulse Rate 78 03/06/19 10:00 Respiratory Rate 20 03/06/19 10:00 Blood Pressure 130/70 03/06/19 10:00 O2 Sat by Pulse Oximetry (%) 98 03/05/19 21:00 Labs: CBC, BMP 03/06/19 07:20 03/06/19 07:20 - Upper Extremity Hand: Yes: Right, Erythema, Pain, Swelling, Tenderness, Other (nvi) Imaging - Results X-ray: Report Reviewed, Image Reviewed Cat Scan: Report Reviewed, Image Reviewed Assessment/Plan 73 year old male, with PMH of COPD, HTN, HLD, DM, and CHF, prostate cancer, s/p recent evan, who presents to the emergency department with, worsening of right hand and wrist pain with very limited movement of the hand. Patient was recently seen in the ED 03/02 for right hand cellulitis and discharged on Keflex.Likely failed outpatient treatment, patient denies SOB/CP, fever, chills , N/V/C/D, denies numbness, tingling, denies urinary symptoms. Pt symptoms have improved with IV abx. a/p right hand cellulitis No surgical intervention continue IV abx elevation will follow d/w Dr. Lancaster
--- NOTE | 2019-03-06 14:36 | PN ---
Progress Note, Physician History of Present Illness: REPORTS LESS R HAND SWELLING/PIAN AFEBRILE WBC IMPROVED BC PENDING - Current Medication List Current Medications: Active Medications Acetaminophen (Tylenol -) 650 mg PO Q6H PRN PRN Reason: PAIN LEVEL 1-5 Last Admin: 03/06/19 10:03 Dose: 650 mg Albuterol Sulfate (Ventolin 0.083% Nebulizer Soln -) 1 amp NEB Q4H PRN PRN Reason: ASTHMA Aspirin (Asa -) 81 mg PO DAILY [facility] Last Admin: 03/06/19 10:03 Dose: 81 mg Bicalutamide (Casodex -) 50 mg PO DAILY [facility] Last Admin: 03/06/19 10:12 Dose: 50 mg Budesonide/Formoterol Fumarate (Symbicort 160/4.5mcg -) 1 puff IH BID [facility] Last Admin: 03/06/19 10:16 Dose: 1 puff Docusate Sodium (Colace -) 200 mg PO HS [facility] Last Admin: 03/05/19 21:09 Dose: 200 mg Furosemide (Lasix -) 20 mg PO DAILY [facility] Last Admin: 03/06/19 10:03 Dose: 20 mg Heparin Sodium (Porcine) (Heparin -) 5,000 unit SQ BID [facility] Last Admin: 03/06/19 10:03 Dose: 5,000 unit Piperacillin Sod/Tazobactam (Sod 3.375 gm/ Dextrose) 50 mls @ 100 mls/hr IVPB Q8H-IV [facility]; Protocol Last Admin: 03/06/19 10:03 Dose: 100 mls/hr Vancomycin HCl (Vancomycin (Pre-Docked)) 1,000 mg in 250 mls @ 166.667 mls/hr IVPB BID@0100,1300 [facility]; Protocol Last Admin: 03/06/19 14:26 Dose: 166.667 mls/hr Insulin Aspart (Novolog Vial Sliding Scale -) 1 vial SQ TIDAC [facility]; Protocol Last Admin: 03/06/19 11:53 Dose: 2 units Metformin HCl (Glucophage -) 500 mg PO BID@0700,1630 [facility] Last Admin: 03/06/19 06:07 Dose: 500 mg Montelukast Sodium (Singulair -) 10 mg PO HS [facility] Last Admin: 03/05/19 21:09 Dose: 10 mg Polyethylene Glycol (Miralax (For Daily Use) -) 17 gm PO TID PRN PRN Reason: CONSTIPATION Last Admin: 03/06/19 10:12 Dose: 17 grams Prednisone (Deltasone -) 5 mg PO DAILY [facility] Last Admin: 03/06/19 10:03 Dose: 5 mg Rosuvastatin Calcium (Crestor -) 10 mg PO HS [facility] Last Admin: 03/05/19 21:09 Dose: 10 mg Senna (Senna -) 2 tab PO HS [facility] Last Admin: 03/05/19 21:09 Dose: 2 tab Tamsulosin HCl (Flomax -) 0.8 mg PO DAILY@1800 [facility] Last Admin: 03/05/19 18:33 Dose: 0.8 mg Tramadol HCl (Ultram -) 50 mg PO Q8H PRN PRN Reason: PAIN LEVEL 6-10 Last Admin: 03/06/19 05:59 Dose: 50 mg - Objective Vital Signs: Vital Signs Temperature 98.1 F 03/06/19 10:00 Pulse Rate 78 03/06/19 10:00 Respiratory Rate 20 03/06/19 10:00 Blood Pressure 130/70 03/06/19 10:00 O2 Sat by Pulse Oximetry (%) 98 03/05/19 21:00 Constitutional: Yes: No Distress Cardiovascular: Yes: Regular Rate and Rhythm, S1, S2 Respiratory: Yes: CTA Bilaterally Gastrointestinal: Yes: Normal Bowel Sounds, Soft. No: Tenderness Extremities: Yes: Other (STILL WITH SIGNIFICANT SWELLING/TENDERNESS OF R HAND BUT IMPROVED) Labs: CBC, BMP 03/06/19 07:20 03/06/19 07:20 Assessment/Plan ? CELLULITIS R HAND ? GOUT HX MRSA COLONIZATION CONTINUE EMPIRIC VANCO/ZOSYN
[2019-03-06] MEDS: TAMSULOSIN HCL 0.4 MG CAP PO SCH (18:21)
[2019-03-06] MEDS: DOCUSATE SODIUM 100 MG CAPSULE (FP) PO SCH (21:33)
[2019-03-06] MEDS: SENNOSIDES 8.6MG TABLET (FP) PO SCH (21:33)
[2019-03-06] MEDS: MONTELUKAST NA 10 MG TABLET PO SCH (21:33)
[2019-03-06] MEDS: ROSUVASTATIN CA 10 MG TABLET (FP) PO SCH (21:33)
[2019-03-07] MEDS ORDERED: DEXTROSE 5%-WATER - 50 ML IVPB ONE ×3 (00:39→16:43)
[2019-03-07] MEDS ORDERED: PIPERACILLIN/TAZOBACTAM 3.375 GM VIAL IVPB ONE ×3 (00:39→16:43)
[2019-03-07] MEDS: VANCOMYCIN 1 GRAM (PRE-DOCKED) 1,000 MG/250 ML BAG IVPB SCH ×2 (00:44→13:08)
[2019-03-07] MEDS: PIPERACILLIN/TAZOB 3.375 GM 3.375 GM in DEXTROSE 5%-WATER - 50 ML IVPB SCH ×3 (02:02→17:28)
[2019-03-07] MEDS: INSULIN SLIDING SCALE (NOVOLOG) 1 VIAL SQ SCH ×3 (06:07→17:28)
[2019-03-07] MEDS: metFORMIN HCL 500 MG TABLET (FP) PO SCH ×2 (06:07→17:26)
[2019-03-07] MEDS: ACETAMINOPHEN 325 MG TABLET (FP) PO PRN ×3 (06:18→18:45)
[2019-03-07] MEDS: traMADol HCL 50 MG TABLET PO PRN (06:19)
--- NOTE | 2019-03-07 09:39 | PN ---
Progress Note, Physician Chief Complaint: R Hand Cellulitis History of Present Illness: Previous notes and events reviewed awake and alert NAD sts pain to R hand is radiating up arm-denies chest pain or SOB more movement noted to R hand, swelling improving but noted to travel to forearm - Current Medication List Current Medications: Active Medications Acetaminophen (Tylenol -) 650 mg PO Q6H PRN PRN Reason: PAIN LEVEL 1-5 Last Admin: 03/07/19 06:18 Dose: 650 mg Albuterol Sulfate (Ventolin 0.083% Nebulizer Soln -) 1 amp NEB Q4H PRN PRN Reason: ASTHMA Aspirin (Asa -) 81 mg PO DAILY [facility] Last Admin: 03/06/19 10:03 Dose: 81 mg Bicalutamide (Casodex -) 50 mg PO DAILY [facility] Last Admin: 03/06/19 10:12 Dose: 50 mg Budesonide/Formoterol Fumarate (Symbicort 160/4.5mcg -) 1 puff IH BID [facility] Last Admin: 03/06/19 21:38 Dose: 1 puff Docusate Sodium (Colace -) 200 mg PO HS [facility] Last Admin: 03/06/19 21:33 Dose: 200 mg Furosemide (Lasix -) 20 mg PO DAILY [facility] Last Admin: 03/06/19 10:03 Dose: 20 mg Heparin Sodium (Porcine) (Heparin -) 5,000 unit SQ BID [facility] Last Admin: 03/06/19 21:34 Dose: 5,000 unit Piperacillin Sod/Tazobactam (Sod 3.375 gm/ Dextrose) 50 mls @ 100 mls/hr IVPB Q8H-IV [facility]; Protocol Last Admin: 03/07/19 02:02 Dose: 100 mls/hr Vancomycin HCl (Vancomycin (Pre-Docked)) 1,000 mg in 250 mls @ 166.667 mls/hr IVPB BID@0100,1300 [facility]; Protocol Last Admin: 03/07/19 00:44 Dose: 166.667 mls/hr Insulin Aspart (Novolog Vial Sliding Scale -) 1 vial SQ TIDAC [facility]; Protocol Last Admin: 03/07/19 06:07 Dose: Not Given Metformin HCl (Glucophage -) 500 mg PO BID@0700,1630 [facility] Last Admin: 03/07/19 06:07 Dose: 500 mg Montelukast Sodium (Singulair -) 10 mg PO [facility] Last Admin: 03/06/19 21:33 Dose: 10 mg Polyethylene Glycol (Miralax (For Daily Use) -) 17 gm PO TID PRN PRN Reason: CONSTIPATION Last Admin: 03/06/19 10:12 Dose: 17 grams Prednisone (Deltasone -) 5 mg PO DAILY [facility] Last Admin: 03/06/19 10:03 Dose: 5 mg Rosuvastatin Calcium (Crestor -) 10 mg PO [facility] Last Admin: 03/06/19 21:33 Dose: 10 mg Senna (Senna -) 2 tab PO HS [facility] Last Admin: 03/06/19 21:33 Dose: 2 tab Tamsulosin HCl (Flomax -) 0.8 mg PO DAILY@1800 [facility] Last Admin: 03/06/19 18:21 Dose: 0.8 mg Tramadol HCl (Ultram -) 50 mg PO Q8H PRN PRN Reason: PAIN LEVEL 6-10 Last Admin: 03/07/19 06:19 Dose: 50 mg - Objective Vital Signs: Vital Signs Temperature 98.2 F 03/07/19 06:00 Pulse Rate 58 L 03/07/19 06:00 Respiratory Rate 18 03/07/19 06:00 Blood Pressure 129/63 03/07/19 06:00 O2 Sat by Pulse Oximetry (%) 96 03/06/19 21:00 Constitutional: Yes: No Distress, Calm Eyes: Yes: Conjunctiva Clear HENT: Yes: Atraumatic Cardiovascular: Yes: Regular Rate and Rhythm Respiratory: Yes: Regular, CTA Bilaterally Gastrointestinal: Yes: Normal Bowel Sounds, Soft Musculoskeletal: Yes: Muscle Weakness Extremities: Yes: WNL Edema: Yes (RUE) Neurological: Yes: Alert, Oriented Psychiatric: Yes: Alert, Oriented Labs: CBC, BMP 03/06/19 07:20 03/06/19 07:20 Microbiology 03/05/19 12:50 Blood - Peripheral Venous Blood Culture - Preliminary NO GROWTH OBTAINED AFTER 24 HOURS, INCUBATION TO CONTINUE FOR 4 DAYS. 03/05/19 12:40 Blood - Peripheral Venous Blood Culture - Preliminary NO GROWTH OBTAINED AFTER 24 HOURS, INCUBATION TO CONTINUE FOR 4 DAYS. Problem List - Problems (1) Cellulitis of hand, right Assessment/Plan: -ID on board -Leukocytosis WBC 10.7 -afebrile -Zosyn, Vancomycin -pain control Code(s): L03.113 - CELLULITIS OF RIGHT UPPER LIMB (2) CHF (congestive heart failure) Assessment/Plan: -Furosemide -daily weights -strict I&Os -low Na diet Code(s): I50.9 - HEART FAILURE, UNSPECIFIED (3) COPD (chronic obstructive pulmonary disease) Assessment/Plan: -O2 via NC -keep SpO2 >90% -Bronchodilators -Montelukast -Symbicort Code(s): J44.9 - CHRONIC OBSTRUCTIVE PULMONARY DISEASE, UNSPECIFIED Qualifiers: COPD type: unspecified COPD Qualified Code(s): J44.9 - Chronic obstructive pulmonary disease, unspecified (4) HTN (hypertension) Assessment/Plan: -low Na diet -monitor BP Code(s): I10 - ESSENTIAL (PRIMARY) HYPERTENSION Qualifiers: Hypertension type: essential hypertension Qualified Code(s): I10 - Essential (primary) hypertension (5) Swelling of joint, hand, right Assessment/Plan: -pain contril -Upper Extremity CT scan shows mild degenerative arthritis with no fracture or avute bony abnormalities -Rheumatology consult -Hand surgery on board~no surgical intervention at this time -Uric acid 3.0, ESR 80, CRP 8.7 Code(s): M25.441 - EFFUSION, RIGHT HAND (6) HLD (hyperlipidemia) Assessment/Plan: -Crestor Code(s): E78.5 - HYPERLIPIDEMIA, UNSPECIFIED (7) DM (diabetes mellitus) Assessment/Plan: -BGM ACHS -Metformin -ISS -low Na diabetic diet Code(s): E11.9 - TYPE 2 DIABETES MELLITUS WITHOUT COMPLICATIONS Qualifiers: Diabetes mellitus type: type 2 Diabetes mellitus 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
[2019-03-07] MEDS: BUDESONIDE/FORMETEROL FUMARATE 160/4.5 mcg INHALER IH SCH ×2 (10:00→22:25)
[2019-03-07] MEDS ORDERED: PT OWN MED DRAWER 7, Y5N ONE (12:55)
[2019-03-07] MEDS: oxyCODONE HCL 5 MG TABLET PO PRN ×2 (12:59→18:45)
[2019-03-07] MEDS: predniSONE 5 MG TABLET (UD) PO SCH (13:02)
[2019-03-07] MEDS: ASPIRIN 81 MG CHEWABLE TABLETS PO SCH (13:02)
[2019-03-07] MEDS: FUROSEMIDE 20 MG TABLET (FP) PO SCH (13:02)
[2019-03-07] MEDS: HEPARIN NA (PORCINE) 5,000 UNITS/ML 1ML VIAL SQ SCH ×2 (13:03→22:25)
[2019-03-07] MEDS: BICALUTAMIDE 50 MG TABLET (FP) PO SCH (13:03)
[2019-03-07] MEDS: TAMSULOSIN HCL 0.4 MG CAP PO SCH (18:45)
[2019-03-07] MEDS: SENNOSIDES 8.6MG TABLET (FP) PO SCH (22:24)
[2019-03-07] MEDS: ROSUVASTATIN CA 10 MG TABLET (FP) PO SCH (22:24)
[2019-03-07] MEDS: MONTELUKAST NA 10 MG TABLET PO SCH (22:24)
[2019-03-07] MEDS: DOCUSATE SODIUM 100 MG CAPSULE (FP) PO SCH (22:25)
[2019-03-08] MEDS: VANCOMYCIN 1 GRAM (PRE-DOCKED) 1,000 MG/250 ML BAG IVPB SCH ×2 (01:27→14:04)
[2019-03-08] MEDS: PIPERACILLIN/TAZOB 3.375 GM 3.375 GM in DEXTROSE 5%-WATER - 50 ML IVPB SCH ×3 (02:27→17:51)
[2019-03-08] MEDS ORDERED: PIPERACILLIN/TAZOBACTAM 3.375 GM VIAL IVPB ONE ×3 (02:48→17:38)
[2019-03-08] MEDS ORDERED: DEXTROSE 5%-WATER - 50 ML IVPB ONE ×3 (02:48→17:38)
[2019-03-08] MEDS: oxyCODONE HCL 5 MG TABLET PO PRN ×4 (03:25→21:30)
[2019-03-08] MEDS ORDERED: INSULIN (NOVOLOG) ASPART 100 UNITS/ML 10ML VIAL ONE (06:20)
[2019-03-08] MEDS: metFORMIN HCL 500 MG TABLET (FP) PO SCH ×2 (07:17→17:51)
[2019-03-08] MEDS: INSULIN SLIDING SCALE (NOVOLOG) 1 VIAL SQ SCH ×3 (07:17→17:24)
[2019-03-08 07:53] LABS: HEMATOCRIT 33.9 % (35.4-49); HEMOGLOBIN 11.4 GM/dL (11.7-16.9); MCH 29.4 pg (25.7-33.7); MCHC 33.8 g/dl (32.0-35.9); MEAN CELL VOLUME 87.1 fl (80-96); MEAN PLT VOLUME 8.8 fl (7.5-11.1); PLATELET COUNT 320 K/MM3 (134-434); RBC 3.89 M/mm3 (4.00-5.60); RDW 13.3 % (11.9-15.9); WHITE BLOOD COUNT 8.3 K/mm3 (4.0-10.0)
[2019-03-08 08:40] LABS: ALBUMIN 2.7 g/dl (3.4-5.0); ALK PHOS 70 U/L (45-117); ANION GAP 8 MMOL/L (8-16); BILIRUBIN,TOTAL 0.6 mg/dL (0.2-1); BLOOD UREA NITROGEN 10.9 mg/dL (7-18); CALCIUM 9.2 mg/dL (8.5-10.1); CHLORIDE 104 mmol/L (98-107); CO2 27 mmol/L (21-32); CREATININE 0.9 mg/dL (0.55-1.3); GLUCOSE,RANDOM 101 mg/dL (74-106); SGOT/AST 10 U/L (15-37); SGPT/ALT 25 U/L (13-61); SODIUM 139 mmol/L (136-145); TOT PROT 6.3 g/dl (6.4-8.2)
[2019-03-08] MEDS ORDERED: PT OWN MED DRAWER 7, Y5N ONE ×2 (09:33→14:01)
[2019-03-08] MEDS: HEPARIN NA (PORCINE) 5,000 UNITS/ML 1ML VIAL SQ SCH ×2 (09:38→21:28)
[2019-03-08] MEDS: ASPIRIN 81 MG CHEWABLE TABLETS PO SCH (09:39)
[2019-03-08] MEDS: ACETAMINOPHEN 325 MG TABLET (FP) PO PRN (09:39)
[2019-03-08] MEDS: predniSONE 5 MG TABLET (UD) PO SCH (09:40)
[2019-03-08] MEDS: FUROSEMIDE 20 MG TABLET (FP) PO SCH (09:40)
[2019-03-08] MEDS: BICALUTAMIDE 50 MG TABLET (FP) PO SCH (09:41)
[2019-03-08] MEDS: BUDESONIDE/FORMETEROL FUMARATE 160/4.5 mcg INHALER IH SCH ×2 (09:41→21:33)
--- NOTE | 2019-03-08 09:54 | PN ---
Progress Note (short form) - Note Progress Note: Pt seen and examined. He states his right arm redness, swelling and overall presentation has improved significantly since being on the IV antibiotics. He is still having intermittent, sharp, shooting pains that seem to start in the right dorsal thumb/dorsoradial side of the wrist area, and go up the dorsoradial forearm to the right shoulder. He denies any recent trauma, no fall , etc. AVSS, afebrile WBC now normal to 8.3 ESR was 80, not repeated yet Blood cultures neg x 48 hrs PE Overall is minimal. No erythema. RUE not swollen, not hot. No fluid collections, no drainage, no lacerations/wounds of any kind. RUE is NVI Good ROM throughout, but with mild stiffness (especially at the shoulder) and mild pain with ROM. Imp Resolving/resolved right upper extremity cellulitis, now with intermittent residual arm pain (from the cellulitis), and mild stiffness. Rec ROM exercises entire RUE including the shoulder. P.T. if necessary, I showed the pt what to do Con't on abx No surgery needed No additional testing needed (no MRI of the right shoulder needed at this time). I rec to the pt to f/u with me as an outpatient in 2 weeks if the right arm pain has not resolved yet
--- NOTE | 2019-03-08 10:52 | PN ---
Progress Note, Physician Chief Complaint: AWAKE ALERT RIGHT HAND PAIN 8/10 INTENSITY - Current Medication List Current Medications: Active Medications Acetaminophen (Tylenol -) 650 mg PO Q6H PRN PRN Reason: PAIN LEVEL 1-5 Last Admin: 03/07/19 06:18 Dose: 650 mg Acetaminophen (Tylenol -) 325 mg PO Q6H PRN PRN Reason: PAIN LEVEL 7-10 Last Admin: 03/08/19 09:39 Dose: 325 mg Albuterol Sulfate (Ventolin 0.083% Nebulizer Soln -) 1 amp NEB Q4H PRN PRN Reason: ASTHMA Aspirin (Asa -) 81 mg PO DAILY [facility] Last Admin: 03/08/19 09:39 Dose: 81 mg Bicalutamide (Casodex -) 50 mg PO DAILY [facility] Last Admin: 03/08/19 09:41 Dose: 50 mg Budesonide/Formoterol Fumarate (Symbicort 160/4.5mcg -) 1 puff IH BID [facility] Last Admin: 03/08/19 09:41 Dose: 1 puff Docusate Sodium (Colace -) 200 mg PO HS [facility] Last Admin: 03/07/19 22:25 Dose: 200 mg Furosemide (Lasix -) 20 mg PO DAILY [facility] Last Admin: 03/08/19 09:40 Dose: 20 mg Heparin Sodium (Porcine) (Heparin -) 5,000 unit SQ BID [facility] Last Admin: 03/08/19 09:38 Dose: 5,000 unit Piperacillin Sod/Tazobactam (Sod 3.375 gm/ Dextrose) 50 mls @ 100 mls/hr IVPB Q8H-IV [facility]; Protocol Last Admin: 03/08/19 09:40 Dose: 100 mls/hr Vancomycin HCl (Vancomycin (Pre-Docked)) 1,000 mg in 250 mls @ 166.667 mls/hr IVPB BID@0100,1300 [facility]; Protocol Last Admin: 03/08/19 01:27 Dose: 166.667 mls/hr Insulin Aspart (Novolog Vial Sliding Scale -) 1 vial SQ TIDAC [facility]; Protocol Last Admin: 03/08/19 07:17 Dose: Not Given Metformin HCl (Glucophage -) 500 mg PO BID@0700,1630 [facility] Last Admin: 03/08/19 07:17 Dose: 500 mg Montelukast Sodium (Singulair -) 10 mg PO [facility] Last Admin: 03/07/19 22:24 Dose: 10 mg Oxycodone HCl (Roxicodone -) 5 mg PO Q4H PRN PRN Reason: PAIN LEVEL 7-10 Last Admin: 03/08/19 09:39 Dose: 5 mg Polyethylene Glycol (Miralax (For Daily Use) -) 17 gm PO TID PRN PRN Reason: CONSTIPATION Last Admin: 03/06/19 10:12 Dose: 17 grams Prednisone (Deltasone -) 5 mg PO DAILY [facility] Last Admin: 03/08/19 09:40 Dose: 5 mg Rosuvastatin Calcium (Crestor -) 10 mg PO [facility] Last Admin: 03/07/19 22:24 Dose: 10 mg Senna (Senna -) 2 tab PO [facility] Last Admin: 03/07/19 22:24 Dose: 2 tab Tamsulosin HCl (Flomax -) 0.8 mg PO DAILY@1800 [facility] Last Admin: 03/07/19 18:45 Dose: 0.8 mg - Objective Vital Signs: Vital Signs Temperature 98.5 F 03/08/19 07:21 Pulse Rate 62 03/08/19 07:21 Respiratory Rate 20 03/08/19 07:21 Blood Pressure 129/67 03/08/19 07:21 O2 Sat by Pulse Oximetry (%) 94 L 03/07/19 21:00 Constitutional: Yes: Moderate Distress HENT: Yes: Other (FACIAL CHANGES TO COMPLEXION, HYPERPIGMENTE/ASHY) Cardiovascular: Yes: Regular Rate and Rhythm Respiratory: Yes: Diminished Gastrointestinal: Yes: Soft, Abdomen, Obese Musculoskeletal: Yes: Joint Stiffness, Joint Swelling, Muscle Pain Extremities: Yes: Other Edema: RUE: 1+ Integumentary: Yes: Other (FACIAL HYPERPIGMENTATION) Neurological: Yes: Other Labs: CBC, BMP 03/08/19 06:48 03/08/19 06:48 Problem List - Problems (1) Cellulitis of hand, right Code(s): L03.113 - CELLULITIS OF RIGHT UPPER LIMB Assessment/Plan ESR/CRP ELEVATED, GOUT VS CELLULITIS/SEPTIC ARTHRITIS IV ABX INCREASE PREDNISONE 40MG DAILY THEN TAPER DVT PROPHYLAXIS PAIN CONTROL MONITOR BGM
--- NOTE | 2019-03-08 15:13 | PN ---
Progress Note, Physician History of Present Illness: SIGNIFICANT IMPROVEMENT IN R HAND SWELLING/PAIN C/O R SHOULDER PAIN , BUT IMPROVED AFEBRILE WBC WNL DOPPLER (-) DVT BC NO GROWTH - Current Medication List Current Medications: Active Medications Acetaminophen (Tylenol -) 650 mg PO Q6H PRN PRN Reason: PAIN LEVEL 1-5 Last Admin: 03/07/19 06:18 Dose: 650 mg Acetaminophen (Tylenol -) 325 mg PO Q6H PRN PRN Reason: PAIN LEVEL 7-10 Last Admin: 03/08/19 09:39 Dose: 325 mg Albuterol Sulfate (Ventolin 0.083% Nebulizer Soln -) 1 amp NEB Q4H PRN PRN Reason: ASTHMA Aspirin (Asa -) 81 mg PO DAILY [facility] Last Admin: 03/08/19 09:39 Dose: 81 mg Bicalutamide (Casodex -) 50 mg PO DAILY [facility] Last Admin: 03/08/19 09:41 Dose: 50 mg Budesonide/Formoterol Fumarate (Symbicort 160/4.5mcg -) 1 puff IH BID [facility] Last Admin: 03/08/19 09:41 Dose: 1 puff Docusate Sodium (Colace -) 200 mg PO HS [facility] Last Admin: 03/07/19 22:25 Dose: 200 mg Furosemide (Lasix -) 20 mg PO DAILY [facility] Last Admin: 03/08/19 09:40 Dose: 20 mg Heparin Sodium (Porcine) (Heparin -) 5,000 unit SQ BID [facility] Last Admin: 03/08/19 09:38 Dose: 5,000 unit Piperacillin Sod/Tazobactam (Sod 3.375 gm/ Dextrose) 50 mls @ 100 mls/hr IVPB Q8H-IV [facility]; Protocol Last Admin: 03/08/19 09:40 Dose: 100 mls/hr Vancomycin HCl (Vancomycin (Pre-Docked)) 1,000 mg in 250 mls @ 166.667 mls/hr IVPB BID@0100,1300 [facility]; Protocol Last Admin: 03/08/19 14:04 Dose: 166.667 mls/hr Insulin Aspart (Novolog Vial Sliding Scale -) 1 vial SQ TIDAC [facility]; Protocol Last Admin: 03/08/19 12:33 Dose: Not Given Metformin HCl (Glucophage -) 500 mg PO BID@0700,1630 [facility] Last Admin: 03/08/19 07:17 Dose: 500 mg Montelukast Sodium (Singulair -) 10 mg PO [facility] Last Admin: 03/07/19 22:24 Dose: 10 mg Oxycodone HCl (Roxicodone -) 5 mg PO Q4H PRN PRN Reason: PAIN LEVEL 7-10 Last Admin: 03/08/19 14:03 Dose: 5 mg Polyethylene Glycol (Miralax (For Daily Use) -) 17 gm PO TID PRN PRN Reason: CONSTIPATION Last Admin: 03/06/19 10:12 Dose: 17 grams Prednisone (Deltasone -) 40 mg PO DAILY [facility] Rosuvastatin Calcium (Crestor -) 10 mg PO [facility] Last Admin: 03/07/19 22:24 Dose: 10 mg Senna (Senna -) 2 tab PO [facility] Last Admin: 03/07/19 22:24 Dose: 2 tab Tamsulosin HCl (Flomax -) 0.8 mg PO DAILY@1800 [facility] Last Admin: 03/07/19 18:45 Dose: 0.8 mg - Objective Vital Signs: Vital Signs Temperature 97.4 F L 03/08/19 10:00 Pulse Rate 88 03/08/19 10:00 Respiratory Rate 18 03/08/19 10:00 Blood Pressure 105/68 03/08/19 10:00 O2 Sat by Pulse Oximetry (%) 94 L 03/07/19 21:00 Constitutional: Yes: No Distress Eyes: Yes: Conjunctiva Clear Cardiovascular: Yes: Regular Rate and Rhythm, S1, S2 Respiratory: Yes: CTA Bilaterally Gastrointestinal: Yes: Normal Bowel Sounds, Soft. No: Tenderness Musculoskeletal: Yes: Other (NO R SHOULDER SWELING / ERYTHEMA/ TENDERNESS. R HAND SWELLING NEARLY ALL RESOLVED) Labs: CBC, BMP 03/08/19 06:48 03/08/19 06:48 Assessment/Plan ? CELLULITIS R HAND ? 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
[2019-03-08] MEDS: TAMSULOSIN HCL 0.4 MG CAP PO SCH (17:51)
[2019-03-08] MEDS: MONTELUKAST NA 10 MG TABLET PO SCH (21:29)
[2019-03-08] MEDS: ROSUVASTATIN CA 10 MG TABLET (FP) PO SCH (21:29)
[2019-03-08] MEDS: SENNOSIDES 8.6MG TABLET (FP) PO SCH (21:29)
[2019-03-08] MEDS: DOCUSATE SODIUM 100 MG CAPSULE (FP) PO SCH (21:29)
[2019-03-09] MEDS ORDERED: DEXTROSE 5%-WATER - 50 ML IVPB ONE ×2 (00:25→10:16)
[2019-03-09] MEDS ORDERED: PIPERACILLIN/TAZOBACTAM 3.375 GM VIAL IVPB ONE ×2 (00:25→10:16)
[2019-03-09] MEDS: VANCOMYCIN 1 GRAM (PRE-DOCKED) 1,000 MG/250 ML BAG IVPB SCH ×2 (00:57→12:06)
[2019-03-09] MEDS: oxyCODONE HCL 5 MG TABLET PO PRN ×4 (01:36→19:38)
[2019-03-09] MEDS: PIPERACILLIN/TAZOB 3.375 GM 3.375 GM in DEXTROSE 5%-WATER - 50 ML IVPB SCH ×2 (02:30→10:27)
[2019-03-09] MEDS: INSULIN SLIDING SCALE (NOVOLOG) 1 VIAL SQ SCH ×3 (06:04→17:35)
[2019-03-09] MEDS: metFORMIN HCL 500 MG TABLET (FP) PO SCH ×2 (06:51→17:31)
[2019-03-09] MEDS ORDERED: PT OWN MED DRAWER 7, Y5N ONE (10:15)
[2019-03-09] MEDS: HEPARIN NA (PORCINE) 5,000 UNITS/ML 1ML VIAL SQ SCH ×2 (10:27→21:43)
[2019-03-09] MEDS: FUROSEMIDE 20 MG TABLET (FP) PO SCH (10:27)
[2019-03-09] MEDS: predniSONE 20 MG TABLET (UD) PO SCH (10:27)
[2019-03-09] MEDS: BICALUTAMIDE 50 MG TABLET (FP) PO SCH (10:27)
[2019-03-09] MEDS: ASPIRIN 81 MG CHEWABLE TABLETS PO SCH (10:27)
[2019-03-09] MEDS: ACETAMINOPHEN 325 MG TABLET (FP) PO PRN ×2 (10:44→17:31)
[2019-03-09] MEDS ORDERED: INSULIN (NOVOLOG) ASPART 100 UNITS/ML 10ML VIAL ONE (11:31)
[2019-03-09] MEDS: POLYETHYLENE GLYCOL 3350 119 GM BTL PO PRN (11:55)
[2019-03-09] MEDS: BUDESONIDE/FORMETEROL FUMARATE 160/4.5 mcg INHALER IH SCH ×2 (11:58→21:43)
--- NOTE | 2019-03-09 14:32 | DS ---
Physical Examination Vital Signs: Vital Signs Temperature 97.9 F 03/09/19 06:00 Pulse Rate 54 L 03/09/19 06:00 Respiratory Rate 20 03/09/19 09:00 Blood Pressure 136/68 03/09/19 06:00 O2 Sat by Pulse Oximetry (%) 95 03/08/19 21:00 Findings/Remarks: Laboratory Results - last 24 hr 03/08/19 03/09/19 03/09/19 17:20 05:53 11:55 POC Glucometer 105 84 115 Active Medications Generic Name Dose Route Start Last Admin Trade Name Freq PRN Reason Stop Dose Admin Acetaminophen 650 mg 03/05/19 01:23 03/07/19 06:18 Tylenol - PO 650 mg Q6H PRN Administration PAIN LEVEL 1-5 Acetaminophen 325 mg 03/07/19 09:53 03/09/19 10:44 Tylenol - PO 325 mg Q6H PRN Administration PAIN LEVEL 7-10 Albuterol Sulfate 1 amp 03/05/19 01:23 Ventolin 0.083% Nebulizer Soln - NEB Q4H PRN ASTHMA Amoxicillin/Clavulanate Potassium 1 tab 03/09/19 17:30 Augmentin - 875mg Tablet PO 03/16/19 17:29 BID@0800,1730 BRIT Aspirin 81 mg 03/06/19 10:00 03/09/19 10:27 Asa - PO 81 mg DAILY BRIT Administration Bicalutamide 50 mg 03/06/19 10:00 03/09/19 10:27 Casodex - PO 50 mg DAILY BRIT Administration Budesonide/Formoterol Fumarate 1 puff 03/05/19 22:00 03/09/19 11:58 Symbicort 160/4.5mcg - IH 1 puff BID BRIT Administration Docusate Sodium 200 mg 03/05/19 22:00 03/08/19 21:29 Colace - PO 200 mg HS BRIT Administration Furosemide 20 mg 03/05/19 10:00 03/09/19 10:27 Lasix - PO 20 mg DAILY BRIT Administration Heparin Sodium (Porcine) 5,000 unit 03/05/19 10:00 03/09/19 10:27 Heparin - SQ 5,000 unit BID BRIT Administration Insulin Aspart 1 vial 03/05/19 07:00 03/09/19 11:58 Novolog Vial Sliding Scale - SQ Not Given TIDAC [facility] Protocol Metformin HCl 500 mg 03/05/19 16:30 03/09/19 06:51 Glucophage - PO 500 mg BID@0700,1630 BRIT Administration Montelukast Sodium 10 mg 03/05/19 22:00 03/08/19 21:29 Singulair - PO 10 mg HS BRIT Administration Oxycodone HCl 5 mg 03/08/19 08:43 03/09/19 10:43 Roxicodone - PO 5 mg Q4H PRN Administration PAIN LEVEL 7-10 Polyethylene Glycol 17 gm 03/05/19 01:23 03/09/19 11:55 Miralax (For Daily Use) - PO 17 grams TID PRN Administration CONSTIPATION Prednisone 40 mg 03/09/19 10:00 03/09/19 10:27 Deltasone - PO 40 mg DAILY BRIT Administration Rosuvastatin Calcium 10 mg 03/05/19 22:00 03/08/19 21:29 Crestor - PO 10 mg HS BRIT Administration Senna 2 tab 03/05/19 22:00 03/08/19 21:29 Senna - PO 2 tab HS BRIT Administration Tamsulosin HCl 0.8 mg 03/05/19 18:00 03/08/19 17:51 Flomax - PO 0.8 mg DAILY@1800 BRIT Administration Microbiology 03/05/19 12:40 Blood - Peripheral Venous Blood Culture - Preliminary NO GROWTH OBTAINED AFTER 96 HOURS, INCUBATION TO CONTINUE FOR 1 DAYS. 03/05/19 12:50 Blood - Peripheral Venous Blood Culture - Preliminary NO GROWTH OBTAINED AFTER 96 HOURS, INCUBATION TO CONTINUE FOR 1 DAYS. Constitutional: Yes: No Distress, Calm Eyes: Yes: Conjunctiva Clear HENT: Yes: Atraumatic Cardiovascular: Yes: Regular Rate and Rhythm Respiratory: Yes: Regular, CTA Bilaterally Gastrointestinal: Yes: Normal Bowel Sounds, Soft Musculoskeletal: Yes: WNL Extremities: Yes: WNL Edema: No Neurological: Yes: Alert, Oriented Psychiatric: Yes: Alert, Oriented Labs: CBC, BMP 03/08/19 06:48 03/08/19 06:48 Discharge Summary Problems reviewed: Yes Reason For Visit: CELLULITIS OF RIGHT HAND Current Active Problems Cellulitis of hand, right (Acute) HLD (hyperlipidemia) (Acute) Hospital Course: 73 year old male, with PMH of COPD, HTN, HLD, DM, and CHF, prostate cancer, s/p recent evan, who presents to the emergency department with, worsening of right hand and wrist pain with very limited movement of the hand. Patient was recently seen in the ED 03/02 for right hand cellulitis and discharged on Keflex.Likely failed outpatient treatment, patient denies SOB/CP, fever, chills , N/V/C/D, denies numbness, tingling, denies urinary symptoms. Patient was evaluated by ID and treated with IV antibiotics. Completed antibiotic course and started on PO antibiotics. Will need to follow up [facility] [employer] for outpatient workup. Condition: Stable - Instructions Diet, Activity, Other Instructions: follow up with PMD in 1 week of discharge Follow up with [employer] Dr Dunlap for workup continue with medication as prescribed return to ER if develop severe pain, respiratory distress, chest pain Referrals: David Gaytan MD [Staff Physician] - Cal Dunlap MD [Staff Physician] - Disposition: VNS/HOME HEALTH CARE - Home Medications Comprehensive Discharge Medication List: Ambulatory Orders Aspirin [ASA -] 81 mg PO DAILY #0 tab.chew 07/31/14 Rosuvastatin [Crestor -] 10 mg PO DAILY 12/05/16 Furosemide [Lasix -] 20 mg PO DAILY 10/09/17 Albuterol 0.083% Nebulizer Jacki [Ventolin 0.083% Nebulizer Soln -] 1 neb NEB Q4H PRN #20 vial 10/25/17 Albuterol Sulfate Inhaler - [Ventolin HFA Inhaler -] 1 - 2 inh PO Q4H PRN #1 inhaler 10/25/17 Budesonide/Formeterol Fumarate [SYMBICORT 160/4.5mcg -] 1 inh PO BID 02/02/18 Bicalutamide [Casodex] 50 mg PO DAILY 12/25/18 Montelukast Na [Singulair -] 10 mg PO HS 02/12/19 Prednisone 5 mg PO DAILY 02/12/19 Acetaminophen [Tylenol .Regular Strength -] 650 mg PO Q6H PRN tablet 02/21/19 Docusate Sodium [Colace -] 300 mg PO HS #90 capsule 02/21/19 Magnesium Hydroxide [Milk of Magnesia] 30 ml PO DAILY PRN #1 bot 02/21/19 Polyethylene Glycol 3350 [Miralax (For Daily Use) -] 17 gm PO TID PRN #1 bottle 02/21/19 Sennosides [Senna -] 2 tab PO HS #60 tablet 02/21/19 Tamsulosin HCl [Flomax -] 0.8 mg PO DAILY@1800 #60 cap.er.24h 02/21/19 metFORMIN HCL [Glucophage -] 500 mg PO BID@0700,1630 #60 tablet 02/21/19 oxyCODONE HCL [Roxicodone -] 5 mg PO TID PRN #15 tablet MDD 3 02/21/19 Cephalexin Monohydrate [Keflex -] 500 mg PO Q6H #20 capsule 03/02/19
[2019-03-09] MEDS: TAMSULOSIN HCL 0.4 MG CAP PO SCH (17:31)
[2019-03-09] MEDS: AMOX TR/POT CLAV 875MG/125MG TABLETS (FP) PO SCH (17:31)
[2019-03-09] MEDS: ROSUVASTATIN CA 10 MG TABLET (FP) PO SCH (21:43)
[2019-03-09] MEDS: MONTELUKAST NA 10 MG TABLET PO SCH (21:44)
[2019-03-09] MEDS: SENNOSIDES 8.6MG TABLET (FP) PO SCH (21:44)
[2019-03-09] MEDS: DOCUSATE SODIUM 100 MG CAPSULE (FP) PO SCH (21:44)
[2019-03-10] MEDS: ACETAMINOPHEN 325 MG TABLET (FP) PO PRN ×2 (04:29→12:40)
[2019-03-10] MEDS: oxyCODONE HCL 5 MG TABLET PO PRN ×2 (04:29→09:30)
[2019-03-10] MEDS: metFORMIN HCL 500 MG TABLET (FP) PO SCH (06:10)
[2019-03-10] MEDS: INSULIN SLIDING SCALE (NOVOLOG) 1 VIAL SQ SCH ×2 (06:12→12:45)
[2019-03-10 07:05] VITALS: TEMP 98.3
[2019-03-10] MEDS ORDERED: PT OWN MED DRAWER 7, Y5N ONE (09:10)
[2019-03-10] MEDS: AMOX TR/POT CLAV 875MG/125MG TABLETS (FP) PO SCH (09:15)
[2019-03-10] MEDS: FUROSEMIDE 20 MG TABLET (FP) PO SCH (09:15)
[2019-03-10] MEDS: BICALUTAMIDE 50 MG TABLET (FP) PO SCH (09:15)
[2019-03-10] MEDS: predniSONE 20 MG TABLET (UD) PO SCH (09:17)
[2019-03-10] MEDS: HEPARIN NA (PORCINE) 5,000 UNITS/ML 1ML VIAL SQ SCH (09:17)
[2019-03-10] MEDS: ASPIRIN 81 MG CHEWABLE TABLETS PO SCH (09:17)
[2019-03-10] MEDS ORDERED: ACETAMINOPHEN 325 MG TABLET (FP) PO PRN (09:22)
[2019-03-10] MEDS: BUDESONIDE/FORMETEROL FUMARATE 160/4.5 mcg INHALER IH SCH (09:30)
[2019-03-10 11:19] VITALS: BP 130/70; PULSE 72
--- NOTE | 2019-03-10 12:11 | PN ---
Progress Note, Physician Chief Complaint: Right hand cellulitis - Current Medication List Current Medications: Active Medications Acetaminophen (Tylenol -) 650 mg PO Q6H PRN PRN Reason: PAIN LEVEL 1-5 Last Admin: 03/10/19 04:29 Dose: 650 mg Acetaminophen (Tylenol -) 325 mg PO Q4H PRN PRN Reason: PAIN LEVEL 7-10 Last Admin: 03/10/19 09:31 Dose: 325 mg Albuterol Sulfate (Ventolin 0.083% Nebulizer Soln -) 1 amp NEB Q4H PRN PRN Reason: ASTHMA Amoxicillin/Clavulanate Potassium (Augmentin - 875mg Tablet) 1 tab PO BID@0800, 1730 [facility] Stop: 03/16/19 17:29 Last Admin: 03/10/19 09:15 Dose: 1 tab Aspirin (Asa -) 81 mg PO DAILY [facility] Last Admin: 03/10/19 09:17 Dose: 81 mg Bicalutamide (Casodex -) 50 mg PO DAILY [facility] Last Admin: 03/10/19 09:15 Dose: 50 mg Budesonide/Formoterol Fumarate (Symbicort 160/4.5mcg -) 1 puff IH BID [facility] Last Admin: 03/10/19 09:30 Dose: 1 puff Docusate Sodium (Colace -) 200 mg PO [facility] Last Admin: 03/09/19 21:44 Dose: 200 mg Furosemide (Lasix -) 20 mg PO DAILY [facility] Last Admin: 03/10/19 09:15 Dose: 20 mg Heparin Sodium (Porcine) (Heparin -) 5,000 unit SQ BID [facility] Last Admin: 03/10/19 09:17 Dose: 5,000 unit Insulin Aspart (Novolog Vial Sliding Scale -) 1 vial SQ TIDAC [facility]; Protocol Last Admin: 03/10/19 06:12 Dose: Not Given Metformin HCl (Glucophage -) 500 mg PO BID@0700,1630 [facility] Last Admin: 03/10/19 06:10 Dose: 500 mg Montelukast Sodium (Singulair -) 10 mg PO HS [facility] Last Admin: 03/09/19 21:44 Dose: 10 mg Oxycodone HCl (Roxicodone -) 5 mg PO Q4H PRN PRN Reason: PAIN LEVEL 7-10 Last Admin: 03/10/19 09:30 Dose: 5 mg Polyethylene Glycol (Miralax (For Daily Use) -) 17 gm PO TID PRN PRN Reason: CONSTIPATION Last Admin: 03/09/19 11:55 Dose: 17 grams Prednisone (Deltasone -) 40 mg PO DAILY [facility] Last Admin: 03/10/19 09:17 Dose: 40 mg Rosuvastatin Calcium (Crestor -) 10 mg PO HS [facility] Last Admin: 03/09/19 21:43 Dose: 10 mg Senna (Senna -) 2 tab PO [facility] Last Admin: 03/09/19 21:44 Dose: 2 tab Tamsulosin HCl (Flomax -) 0.8 mg PO DAILY@1800 [facility] Last Admin: 03/09/19 17:31 Dose: 0.8 mg - Objective Vital Signs: Vital Signs Temperature 98.3 F 03/10/19 09:00 Pulse Rate 72 03/10/19 09:00 Respiratory Rate 20 03/10/19 09:00 Blood Pressure 130/70 03/10/19 09:00 O2 Sat by Pulse Oximetry (%) 95 03/08/19 21:00 Labs: CBC, BMP 03/08/19 06:48 03/08/19 06:48
== END 2019-03-10 13:40 | disposition home or self-care (01) | DRG 603 ==
LOC: JER 19:17 → JERBED 21:15 → J8W 23:47
PROVIDERS: ADMIT Family Medicine; ATTEND Family Medicine
DX: L03.113 Cellulitis of right upper limb (principal); J44.9 Chronic obstructive pulmonary disease, unspecified; E78.5 Hyperlipidemia, unspecified; E11.9 Type 2 diabetes mellitus without complications; C61 Malignant neoplasm of prostate; I11.0 Hypertensive heart disease with heart failure; I50.9 Heart failure, unspecified; Z87.891 Personal history of nicotine dependence; Z79.84 Long term (current) use of oral hypoglycemic drugs; K59.00 Constipation, unspecified; Z79.4 Long term (current) use of insulin; M10.9 Gout, unspecified; N40.0 Benign prostatic hyperplasia without lower urinary tract symptoms
CPT/HCPCS: 36415; 73130-TC-RT-FY; 73200-TC-RT; 80048; 80053; 82962; 83605; 84550; 85025; 85027; 85651; 86140; 86431; 87040; 93005; 93010; 93971; 99284-25; G0480; J0131; J1644

== ENCOUNTER 2019-04-03 10:11 | Emergency (ER) | payer OTHER ==
[2019-04-03 10:26] VITALS: BMI 31.1
--- NOTE | 2019-04-03 10:36 | PDOC ---
History of Present Illness - General History Source: Patient - History of Present Illness Initial Comments: 04/03/19 10:57 Patient is a 73 year old male with PMH of COPD (on home O2), HTN, HLD, DM, CHF, prostate CA who presents with SOB and productive cough of clear sputum x2 days. Symptoms began 2 days ago when pt went outside in the cold. He used his nebulizer ~7 times with mild relief. Pt awoke this morning and symptoms were worsened, so he came to the ED. He denies any fevers, chills, chest pain, edema , nausea, vomiting. Pt reports he has been compliant with his home medications and last saw Dr. Barahona 1 month ago. No recent changes to medications. No sick contacts. Pt has had many hospitalizations in the past for COPD. Denies any intubations. 04/03/19 11:08 04/03/19 11:15 Is this a multiple visit Asthma Patient?: Yes Timing/Duration: 24 hours Severity: moderate <Ashwini Ruelas - Last Filed: 04/03/19 12:17> <Cailin Baker - Last Filed: 04/03/19 12:47> - General Chief Complaint: Shortness of Breath Stated Complaint: COPD Time Seen by Provider: 04/03/19 10:35 Past History - Past Medical History Anemia: No Asthma: Yes Cancer: Yes (ca prostate) Cardiac Disorders: Yes (CHF) COPD: Yes CHF: Yes DVT: Yes Diabetes: Yes (NO MED - RELATED PREDISONE) GI Disorders: Yes (GERD, COLON POLYP) Disorders: Yes (ENLARGED PROSTATE) HTN: Yes Hypercholesterolemia: Yes - Immunization History Immunization Up to Date: Yes - Psycho Social/Smoking Cessation Hx Smoking Status: No Smoking History: Never smoked Have you smoked in the past 12 months: No Number of Cigarettes Smoked Daily: 0 If you are a former smoker, when did you quit?: 2001 'Breaking Loose' booklet given: 01/08/12 Hx Alcohol Use: No Drug/Substance Use Hx: No Substance Use Type: None Hx Substance Use Treatment: No <Ashwini Ruelas - Last Filed: 04/03/19 12:17> <Cailin Baker - Last Filed: 04/03/19 12:47> - Past Medical History Allergies/Adverse Reactions: Allergies Allergy/AdvReac Type Severity Reaction Status Date / Time ibuprofen [From Advil] Allergy Unknown Vomiting Verified 04/03/19 10:26 azithromycin [From Zithromax] AdvReac Mild Vomiting Verified 04/03/19 10:26 Home Medications: Ambulatory Orders Aspirin [ASA -] 81 mg PO DAILY #0 tab.chew 07/31/14 Rosuvastatin [Crestor -] 10 mg PO DAILY 12/05/16 Furosemide [Lasix -] 20 mg PO DAILY 10/09/17 Albuterol Sulfate Inhaler - [Ventolin HFA Inhaler -] 1 - 2 inh PO Q4H PRN #1 inhaler 10/25/17 Budesonide/Formeterol Fumarate [SYMBICORT 160/4.5mcg -] 1 inh PO BID 02/02/18 Bicalutamide [Casodex] 50 mg PO DAILY 12/25/18 Montelukast Na [Singulair -] 10 mg PO HS 02/12/19 Docusate Sodium [Colace -] 300 mg PO HS #90 capsule 02/21/19 Tamsulosin HCl [Flomax -] 0.8 mg PO DAILY@1800 #60 cap.er.24h 02/21/19 metFORMIN HCL [Glucophage -] 500 mg PO BID@0700,1630 #60 tablet 02/21/19 Prednisone 5 mg PO ASDIR 04/03/19 Review of Systems - Review of Systems Able to Perform ROS?: Yes Constitutional: Yes: See HPI. No: Fever HEENTM: No: Nose Congestion Respiratory: Yes: Cough, Shortness of Breath, SOB with Exertion, SOB at Rest, Wheezing, Productive cough Cardiac (ROS): No: Chest Pain, Palpitations, Chest Tightness <Midtling,Ashwini - Last Filed: 04/03/19 12:17> *Physical Exam - Vital Signs Last Vital Signs Temp Pulse Resp BP Pulse Ox 97.8 F 74 16 124/74 98 04/03/19 10:24 04/03/19 10:24 04/03/19 10:24 04/03/19 10:24 04/03/19 10:24 - Physical Exam General Appearance: Yes: Nourished HEENT: positive: EOMI, MT, Normal ENT Inspection, Normal Voice Neck: positive: Trachea midline, Normal Thyroid Respiratory/Chest: positive: Decreased Breath Sounds, Rhonchi, Wheezing Cardiovascular: positive: Regular Rhythm, Regular Rate, S1, S2, Edema. negative : JVD, Tachycardia Vascular Pulses: Dorsalis-Pedis (R): 2+, Doralis-Pedis (L): 2+ Gastrointestinal/Abdominal: positive: Normal Bowel Sounds Extremity: negative: Pedal Edema <Ashwini Ruelas - Last Filed: 04/03/19 12:17> - Vital Signs Last Vital Signs Temp Pulse Resp BP Pulse Ox 97.8 F 74 16 124/74 98 04/03/19 10:24 04/03/19 10:24 04/03/19 10:24 04/03/19 10:24 04/03/19 10:24 <Cailin Baker - Last Filed: 04/03/19 12:47> ED Treatment Course - LABORATORY CBC & Chemistry Diagram: 04/03/19 11:00 04/03/19 11:00 <Ashwini Ruelas - Last Filed: 04/03/19 12:17> - LABORATORY CBC & Chemistry Diagram: 04/03/19 11:00 04/03/19 11:00 - ADDITIONAL ORDERS Additional order review: Laboratory Results 04/03/19 04/03/19 11:00 11:00 Sodium 140 Potassium 4.1 Chloride 105 Carbon Dioxide 31 Anion Gap 5 L BUN 10.4 Creatinine 0.7 Est GFR (CKD-EPI)AfAm 106.99 Est GFR (CKD-EPI)NonAf 92.31 Random Glucose 92 Calcium 9.7 Total Bilirubin 0.5 AST 17 ALT 32 Alkaline Phosphatase 71 Troponin I < 0.02 Total Protein 7.0 Albumin 3.6 04/03/19 11:00 RBC 4.61 MCV 88.3 MCHC 32.4 RDW 13.8 MPV 9.1 - Medications Given in the ED: ED Medications Discontinued Medications Generic Name Dose Route Start Last Admin Trade Name Freq PRN Reason Stop Dose Admin Albuterol/Ipratropium 1 amp 04/03/19 11:15 04/03/19 12:09 Duoneb - NEB 04/03/19 11:46 1 amp Q15M BRIT Administration Methylprednisolone Sodium Succinate 125 mg 04/03/19 10:56 04/03/19 11:19 Solu-Medrol - IVPUSH 04/03/19 10:57 125 mg ONCE ONE Administration <Cailin Baker - Last Filed: 04/03/19 12:47> Medical Decision Making - Medical Decision Making 04/03/19 11:14 Differential dx: COPD exacerbation vs acute CHF vs pneumonia >> CBC, CMP, trop, EKG, CXR >> IV solumedrol and duonebs 04/03/19 12:10 EKG normal sinus rhythm at 67 bpm, no interval abnormalities, narrow QRS, ST and T wave segments and morphology normal. Nonspecific T wave abnormalities 04/03/19 12:11 Wheezing likely 2/2 COPD exacerbation. Treating with duonebs x3 and IV steroids , will reasess. CXR: No acute processes, no edema or infiltrate, normal cardiac silhouette. Plan for pt to be discharged in stable condition. Pt made aware of impression, treatment recommendations, and dispo plan. Will d/c with albuterol inhaler, supportive care, and prednisone burst x 4 days. All questions were answered to patient's satisfaction and expressed understanding and comfort with this. At time of d/c pt is clinically improvved, tolerating po, and verbalizes understanding of instructions. <Ashwini Ruelas - Last Filed: 04/03/19 12:17> Discharge - Discharge Information Problems reviewed: Yes - Admission No <Ashwini Ruelas - Last Filed: 04/03/19 12:17> <Cailin Baker - Last Filed: 04/03/19 12:47> - Discharge Information Clinical Impression/Diagnosis: COPD exacerbation Condition: Improved Disposition: HOME - Follow up/Referral Referrals: David Gaytan MD [Primary Care Provider] - - Patient Discharge Instructions Patient Printed Discharge Instructions: DI for Chronic Obstructive Pulmonary Disease, DI for Acute Bronchitis Additional Instructions: Please take medications as prescribed. Follow up with your primary care provider and your strategic planning consultant, Dr. Barahona, in one week. Return to the emergency room if you experience worsening or persistent difficulty breathing, cough, any fevers, chest pain, dehydration, or any other symptoms. Wheezing is most likely due to COPD, will treat with duo nebs x3 and steroids, reassess. Chest x-ray clear, no edema or infiltrate, normal cardiac silhouette. rx albuterol inhaler, use supportive care, hydration, prednisone burst x 4 more days
[2019-04-03] MEDS ORDERED: ALBUTEROL SO4 2.5/IPRATROPIUM 0.5 INH SOL 3 ML VIAL.NEB. NEB ONE (10:40)
--- NOTE | 2019-04-03 10:48 | PDOC ---
Documentation entered by Abdiel Leon SCRIBE, acting as scribe for Cailin Baker MD. Caiiln Baker MD: This documentation has been prepared by the Edward tan Daniel, SCRIBE, under my direction and personally reviewed by me in its entirety. I confirm that the documentation accurately reflects all work, treatment, procedures, and medical decision making performed by me. Attending Attestation - Resident Resident Name: Ashwini Ruelas - ED Attending Attestation I have performed the following: I have examined & evaluated the patient, The case was reviewed & discussed with the resident, I agree w/resident's findings & plan - HPI HPI: 04/03/19 10:47 The patient is a year old with a past medical history of COPD (home O2), HTN, HLD, diabetes, CHF, and prostate cancer here today for evaluation of shortness of breath and cough. The patient reports that his shortness of breath and cough started 2 days ago when he went outside. He states that he used his home nebulizer treatment with mild relief but when he woke up today his symptoms were worse. He also notes some nasal congestion. Patient states that he takes 5 mg prednisone daily. Patient denies headache, lightheadedness. Denies fever, chills. Denies chest pain. Denies nausea, vomiting, diarrhea, abdominal pain. Denies sick contacts. Allergies: ibuprofen, azithromycin Violin Tutor: Juan Barahona Nuclear Station Operator: Naga Stinson - Physicial Exam PE: 04/03/19 10:47 Agree with the resident's HPI and PE as documented in the electronic medical record. NAD, well appearing, EOMI, PERRL, nl conjunctiva, anicteric; neck supple. + bilateral expiratory wheezing, RRR, no murmur, abdomen soft nontender. no rebound, guarding. Back nontender. CARR x4, no focal neuro deficits. No peripheral edema. normal color for ethnicity, WWP. 04/03/19 11:57 - Medical Decision Making 04/03/19 10:47 Vital Signs Temp Pulse Resp BP Pulse Ox 97.8 F 74 16 124/74 98 04/03/19 10:24 04/03/19 10:24 04/03/19 10:24 04/03/19 10:24 04/03/19 10:24 DDx SOB: ACS, PE, PTX, CHF, COPD exac, pulmonary edema, pleurisy, pneumonia, viral syndrome. effusion. anemia, electrolyte/metabolic derangements. Considered but clinically doubt based on HPI and PE: Low suspicion for pulmonary embolism or dissection. EKG sinus rhythm, no acute ST elevations or depressions. Patient does not have chest pain or active shortness of breath. He is satting appropriately, speaking clear sentences. Laboratory results unremarkable, negative troponin so unlikely to be ACS. Prior BNP's have been negative so this is unlikely to be fluid overload and patient does not appear hypervolemic. mild leukocytosis, but on chronic steroids so expect elevation. flu_neg Wheezing is most likely due to COPD, will treat with duo nebs x3 and steroids, reassess. Chest x-ray clear, no edema or infiltrate, normal cardiac silhouette. rx albuterol inhaler, use supportive care, hydration, prednisone burst x 4 more days Pt to be discharged in stable condition. Patient made aware of clinical impression, treatment recommendations and disposition plan, return precautions discussed (including but not limited to new or persistent/worsening symptoms, pain, fevers, or signs of infection, chest pain, respiratory distress, inability to tolerate oral intake, dehydration, syncope, or neurologic changes) . Follow up with PMD and/or pulm specialist as recommended, follow up information provided, take medications as instructed for duration of time. continue with supportive care, avoid triggers and precipitants. All questions answered to patient's satisfaction and expressed understanding and comfort with this. At the time of discharge, the patient is alert, clinically improved, tolerating po and verbalizes understanding of instructions, satisfied with the care received and felt comfortable with the plan. Patient does not suffer from an acute life-threatening medical condition at this time and is safe for outpatient follow-up. 04/03/19 12:04 04/03/19 12:47 Heart Score/ECG Review #1 ECG reviewed & interpreted by me at: 11:15 General ECG Interpretation: Sinus Rhythm, Normal Rate, Normal Intervals Compared to previous ECG there are: No significant change 04/03/19 12:00 EKG normal sinus rhythm at 67 bpm, no interval abnormalities, narrow QRS, ST and T wave segments and morphology normal. Nonspecific T wave abnormalities
[2019-04-03] MEDS ORDERED: methylPREDNISolone NA SUCC 125 MG/2 ML VIAL IVPUSH ONE (10:56)
[2019-04-03] MEDS ORDERED: methylPREDNISolone NA SUCC 125 MG/2 ML VIAL ONE (11:14)
[2019-04-03] MEDS: ALBUTEROL SO4 2.5/IPRATROPIUM 0.5 INH SOL 3 ML VIAL.NEB. NEB SCH ×3 (11:16→12:09)
[2019-04-03 11:25] LABS: HEMATOCRIT 40.7 % (35.4-49); HEMOGLOBIN 13.2 GM/dL (11.7-16.9); MCH 28.6 pg (25.7-33.7); MCHC 32.4 g/dl (32.0-35.9); MEAN CELL VOLUME 88.3 fl (80-96); MEAN PLT VOLUME 9.1 fl (7.5-11.1); PLATELET COUNT 244 K/MM3 (134-434); RBC 4.61 M/mm3 (4.00-5.60); RDW 13.8 % (11.9-15.9)
--- NOTE | 2019-04-03 11:47 | EKG ---
Test Reason : Blood Pressure : / mmHG Vent. Rate : 067 BPM Atrial Rate : 067 BPM P-R Int : 170 ms QRS Dur : 106 ms QT Int : 416 ms P-R-T Axes : 056 014 047 degrees QTc Int : 439 ms NORMAL SINUS RHYTHM NORMAL ECG Confirmed by MD NORRIS, KAIA ([id number]) on 04/03/2019 11:47:13 AM Referred By: Confirmed By:KAIA PISANO MD
[2019-04-03 12:02] LABS: ALBUMIN 3.6 g/dl (3.4-5.0); BILIRUBIN,TOTAL 0.5 mg/dL (0.2-1); BLOOD UREA NITROGEN 10.4 mg/dL (7-18); CALCIUM 9.7 mg/dL (8.5-10.1); CREATININE 0.7 mg/dL (0.55-1.3); POTASSIUM 4.1 mmol/L (3.5-5.1)
[2019-04-03 12:55] VITALS: BP 158/82; PULSE 89; TEMP 97.7
== END 2019-04-03 12:55 | disposition home or self-care (01) ==
LOC: JER 10:11
PROC: 3E0F7GC Introduction of Other Therapeutic Substance into Respiratory Tract, Via Natural or Artificial Opening (ICD-10-PCS; principal; 2019-04-03)
PROC: 3E0333Z Introduction of Anti-inflammatory into Peripheral Vein, Percutaneous Approach (ICD-10-PCS; 2019-04-03)
DX: J44.1 Chronic obstructive pulmonary disease with (acute) exacerbation (principal); I11.0 Hypertensive heart disease with heart failure; I50.9 Heart failure, unspecified; E78.5 Hyperlipidemia, unspecified; E09.9 Drug or chemical induced diabetes mellitus without complications; T38.0X5A Adverse effect of glucocorticoids and synthetic analogues, initial encounter; C61 Malignant neoplasm of prostate; J45.998 Other asthma; Z87.19 Personal history of other diseases of the digestive system; Z79.84 Long term (current) use of oral hypoglycemic drugs; Z99.81 Dependence on supplemental oxygen
CPT/HCPCS: 36415; 71046-TC-FY; 80053; 84484; 85027; 87804; 93005; 93010; 94640; 96374; 99284-25

== ENCOUNTER 2019-12-19 04:45 | Day surgery (SDC) | payer OTHER ==
[2019-12-17 16:59] VITALS: BMI 30.2
--- NOTE | 2019-12-19 08:17 | HP ---
[facility] - Chief Complaint Chief Complaint: left knee pain - Past Medical History Allergies/Adverse Reactions: Allergies Allergy/AdvReac Type Severity Reaction Status Date / Time ibuprofen [From Advil] Allergy Unknown Vomiting Verified 12/17/19 16:31 acetaminophen [From Tylenol] AdvReac Mild Vomiting Verified 12/17/19 16:32 azithromycin [From Zithromax] AdvReac Mild Vomiting Verified 12/17/19 16:31 Cardiovascular: Yes: CHF, HTN, Hyperlipdemia Pulmonary: Yes: COPD Gastrointestinal: Yes: Constipation, Ulcerative Colitis (PULM/CCM ) Renal/: Yes: BPH, Cancer (prostate cancer) Endocrine: Yes: Diabetes Mellitus - Current Medications Current Medications: Home Medications Medication Instructions Recorded Rosuvastatin [Crestor -] 10 mg PO DAILY 12/05/16 Furosemide [Lasix -] 20 mg PO DAILY 10/09/17 Tamsulosin HCl [Flomax -] 0.8 mg PO DAILY@1800 #60 cap.er.24h 02/21/19 metFORMIN HCL [Glucophage -] 500 mg PO BID@0700,1630 #60 tablet 02/21/19 Apixaban [Eliquis -] 5 mg PO BID 30 Days #68 tablet 10/04/19 Aspirin 81 mg PO DAILY 12/17/19 Bicalutamide 50 mg PO DAILY 12/17/19 Metoprolol Tartrate 12.5 mg PO DAILY 12/17/19 Warfarin Na [Coumadin] 6 mg PO DAILY 12/17/19 Satellite Physical Exam - Physical Examination General Appearance: Well Nourished, Well Developed, Alert & Oriented x3 ENT: Clear Lung: Normal air movement Extremities: Other (left knee- + swelling, + ttp, decr rom, + mcmurrays, nvi) Neurological: Intact, Alert, Oriented Satellite Impression/Plan - Impression/Plan Impression: left knee internal derangement Operative Procedure: left knee arthroscopy Date to be Performed: 12/19/19
[2019-12-19] MEDS ORDERED: ONDANSETRON 4 MG/2 ML VIAL IVPUSH PRN (11:30)
[2019-12-19] MEDS ORDERED: LACTATED RINGERS SOLUTION 1,000 ML IV SCH (11:30)
[2019-12-19] MEDS ORDERED: oxyCODONE HCL 5 MG TABLET PO PRN (11:30)
[2019-12-19] MEDS ORDERED: PROPOFOL 20 ML ONE (11:36)
[2019-12-19] MEDS ORDERED: DEXAMETHASONE SOD PHOSPHATE 4 MG/1 ML VIAL ONE (11:36)
[2019-12-19] MEDS ORDERED: MIDAZOLAM HCL 2 MG/2 ML SINGLE DOSE VIAL ONE (11:37)
[2019-12-19] MEDS ORDERED: LIDOCAINE 1%/EPI 1:100000 (20 ML MULTI DOSE VIAL) ONE (11:59)
[2019-12-19] MEDS ORDERED: ceFAZolin 2 GRAM PREMIX BAG IVPB ONE (12:45)
[2019-12-19] MEDS ORDERED: ceFAZolin SODIUM 1 GM VIAL ONE (12:47)
--- NOTE | 2019-12-19 13:02 | OP ---
Operative Note - Note: Operative Date: 12/19/19 ([facility]) Pre-Operative Diagnosis: left knee internal derangement Operation: left knee arthroscopy with debridement chondroplasty Post-Operative Diagnosis: Same as Pre-op Surgeon: Roland Drake Envelope Sealer: Eleuterio Sandoval Anesthesia: General, Local Specimens Removed: shavings Estimated Blood Loss (mls): 5
--- NOTE | 2019-12-19 13:56 | OP ---
DATE OF OPERATION: 12/19/2019 PREOPERATIVE DIAGNOSIS: Internal derangement of left knee. POSTOPERATIVE DIAGNOSIS: Internal derangement of left knee. PROCEDURE: Left knee arthroscopy with chondroplasty of the lateral femoral condyle, trochlea, and somewhat on the medial femoral condyle. SURGICAL ATTENDING: Roland Drake MD ANESTHESIA: Gen with LMA. CLOSURE: 4-0 nylon. COMPLICATIONS: None. CONDITION: To recovery room in stable condition. DESCRIPTION OF OPERATIVE PROCEDURE: Patient was taken to the operating room on December 19, 2019. General anesthesia with LMA was administered by the anesthesiologist. IV Kefzol was administered prophylactically prior to the case. Left lower extremity was prepped and draped in the usual sterile fashion. Medial and lateral infrapatellar portals were infiltrated with 1% Xylocaine with epinephrine. Both portals were then made with 15-blade followed by a blunt trocar. The scope was placed in the infrapatellar portal into the suprapatellar pouch. The knee was inflated with a cocktail of 10 mL of 1% Xylocaine, 10 mL 0.5% Marcaine, and 20 mL of arthroscopic saline. After allowing the anesthetic to work, the procedure was performed and the medial and lateral gutters were visualized to be clean. The undersurface of the patella was found to be intact. The trochlea had some extensive grade 3-4 changes. Any loose cartilage was debrided using the shaver. With valgus stress on the knee, the medial compartment was entered and medial meniscus was visualized, probed, found to be intact. The medial femoral condyle had some punctate areas of grade 3 changes, but for the most part was intact, as was the medial tibial plateau. Any loose articular cartilage debrided using the shaver. At 90 degrees, the ACL was visualized, probed, found to be intact. There was a lot of fibrous tissue anteriorly that was debrided using the shaver. In the figure 4 position, lateral compartment was entered, lateral meniscus visualized, probed, found to be intact. The lateral femoral condyle had extensive grade 3-4 changes. Any loose articular cartilage was debrided using the shaver. The lateral tibial plateau was basically intact. The knee was irrigated with copious amounts of irrigation. The portals were closed using 4-0 nylon. Prior to closure, 20 mL of 0.5% Marcaine was infused through the outflow portal. Sterile pressure dressing was placed over the knee. Patient awakened from anesthesia and transferred to recovery room in stable condition. No complications. Estimated blood loss negligible. Stephan [id number]
[2019-12-19 16:17] VITALS: BP 128/60; PULSE 68; TEMP 97.9
--- NOTE | 2019-12-21 17:09 | PATH ---
Surgical Pathology Report Patient Name: BENJAMIN BRODERICK [facility]. Rec. #: [id number] /Age/Gender: 1945 (Age: 74) / M Account: [id number] Location: [facility] SURGICAL Taken: 12/19/2019 Received: 12/20/2019 Reported: 12/21/2019 Physicians: Roland Drake M.D. Specimen(s) Received LEFT KNEE SHAVINGS Clinical History Left knee derangement Final Diagnosis KNEE SHAVINGS, LEFT, ARTHROSCOPY: FRAGMENTS OF CARTILAGE, DENSE FIBROCONNECTIVE TISSUE, ADIPOSE TISSUE, AND REACTIVE SYNOVIUM. NODULAR CALCIFIC AGGREGATES CONSISTENT WITH CHONDROCALCINOSIS PRESENT. Electronically Signed Charo Luke M.D. Gross Description Received in formalin, labeled "left knee shavings," is a 4.0 x 3.5 x 0.3 cm. aggregate of simon-yellow soft tissue fragments. A shared services representative portion is submitted in one cassette. 12/20/[address] [facility]
== END 2019-12-19 15:40 | disposition home or self-care (01) ==
LOC: JASU-SURG 04:45
PROVIDERS: ATTEND Orthopaedic Surgery
PROC: 0SBD4ZZ Excision of Left Knee Joint, Percutaneous Endoscopic Approach (ICD-10-PCS; principal; 2019-12-19 11:30)
DX: M23.8X2 Other internal derangements of left knee (principal); I11.0 Hypertensive heart disease with heart failure; I50.9 Heart failure, unspecified; E78.5 Hyperlipidemia, unspecified; N40.0 Benign prostatic hyperplasia without lower urinary tract symptoms; Z85.46 Personal history of malignant neoplasm of prostate; E11.9 Type 2 diabetes mellitus without complications
CPT/HCPCS: 82962; 88304-TC; 94760

== ENCOUNTER 2020-02-23 10:32 | Emergency (ER) | payer OTHER ==
[2020-02-23 10:39] VITALS: BP 145/76; PULSE 74; TEMP 97.9; BMI 295.3
--- OUTSIDE RECORDS SUMMARY | 2020-02-23 10:56 | XMS ---
:1945 [facility] Organization [facility] Care [facility] Providers Name Role Phone Lucila, Ammir Unavailable [phone] Lucila, Ammir Unavailable [phone] Lucila, Ammir Unavailable [phone] Lucila, Ammir Unavailable [phone] Lucila, Ammir Unavailable [phone] Lucila, Ammir Unavailable [phone] Lucila, Ammir Unavailable [phone] Lucila, Ammir Unavailable [phone] Lucila, Ammir Unavailable [phone] Lucila, Ammir Unavailable [phone] Lucila, Ammir Unavailable [phone] Lucila, Ammir Unavailable [phone] Lucila, Ammir Unavailable [phone] Lucila, Ammir Unavailable [phone] Lucila, Ammir Unavailable [phone] Lucila, Ammir Unavailable [phone] Re-disclosure Warning The records that you are about to access may contain information from federally- assisted alcohol or drug abuse programs. If such information is present, then the following federally mandated warning applies: This information has been disclosed to you from records protected by federal confidentiality rules (42 CFR part 2). The federal rules prohibit you from making any further disclosure of this information unless further disclosure is expressly permitted by the written consent of the person to whom it pertains or as otherwise permitted by 42 CFR part 2. A general authorization for the release of medical or other information is NOT sufficient for this purpose. The Federal rules restrict any use of the information to criminally investigate or prosecute any alcohol or drug abuse patient.The records that you are about to access may contain highly sensitive health information, the redisclosure of which is protected by Article 27-F of the [facility] Public Health law. If you continue you may haveaccess to information: Regarding HIV / AIDS; Provided by facilities licensed or operated by the [facility] Office of Mental Health; or Provided by the [facility] Office for People With Developmental Disabilities. If such information is present, then the following [facility] mandated warning applies: This information has been disclosed to you from confidential records which are protected by state law. State law prohibits you from making any further disclosure of this information without the specific written consent of the person to whom it pertains, or as otherwise permitted by law. Any unauthorized further disclosure in violation of state law may result in a fine or half-way sentence or both. A general authorization for the release of medical or other information is NOT sufficient authorization for further disclosure. Encounters Encounter Providers Location Date Indications Data Source(s ) Attender: [facility] 02/07/2020 MED[facility] ([place] mmir Lucila 12:00:00 AM JAIME Gaytan Ph ysician) [facility] 12:00:00 AM E DT MEDGEN (Ammir Lucila Physician) Office Attender: David Snowadi 02/07/2020 12:00:00 AM E DT MEDGEN (Ammir Lucila Physician) [facility] 12:00:00 AM E DT MEDGEN (Ammir Lucila Physician) Office Attender: David Lucila 02/07/2020 12:00:00 AM E DT MEDGEN (Ammir Lucila Physician) Office Attender: brooks Snowadi 02/07/2020 12:00:00 AM E DT MEDGEN (Ammir Lucila Physician) Office Attender: brooks Snowadi 02/07/2020 12:00:00 AM E DT MEDGEN (Ammir Lucila Physician) Office Attender: David Gaytan 02/07/2020 12:00:00 AM E DT MEDGEN (Ammir Lucila Physician) [facility] 12:00:00 AM E DT MEDGEN (Ammir Lucila Physician) [facility]/07/2020 12:00:00 AM E DT MEDGEN (Ammir Lucila Physician) [facility]/07/2020 12:00:00 AM E DT MEDGEN (Ammir Lucila Physician) Office Attender: [facility] Lucila 02/07/2020 12:00:00 AM E DT MEDGEN (Ammir Lucila Physician) [facility]/07/2020 12:00:00 AM E DT MEDGEN (Ammir Lucila Physician) [facility]/07/2020 12:00:00 AM E DT MEDGEN (Ammir Lucila Physician) [facility]/07/2020 12:00:00 AM E DT MEDGEN (Ammir Lucila Physician) [facility]/07/2020 12:00:00 AM E DT MEDGEN (Ammir Lucila Physician) [facility]/07/2020 12:00:00 AM E DT MEDGEN (Ammir Lucila Physician) [facility]/07/2020 12:00:00 AM E DT MEDGEN (Ammir Lucila Physician) [facility]/07/2020 12:00:00 AM E DT MEDGEN (Ammir Lucila Physician) [facility] 02/07/2020 12:00:00 AM E DT MEDGEN (Ammir Lucila Physician) [facility] 02/07/2020 12:00:00 AM E DT MEDGEN (Ammir Lucila Physician) [facility] 02/07/2020 12:00:00 AM E DT MEDGEN (Ammir Lucila Physician) [facility] 02/07/2020 12:00:00 AM E DT MEDGEN (Ammir Lucila Physician) Office Attender: Ammir Lucila 02/07/2020 12:00:00 AM E DT MEDGEN (Ammir Lucila Physician) Office Attender: Ammir Lucila 01/17/2020 12:00:00 AM E DT MEDGEN (Ammir Lucila Physician) Phone Attender: Ammir Lucila 01/02/2020 12:00:00 AM E DT MEDGEN (Ammir Lucila Physician) Office Immunizations Vaccine Date Status Description Data Source(s) Influenza, high dose 02/07/2020 completed MEDGEN (Ammir Lucila seasonal 12:00:00 AM EDT Physician) Influenza, high dose 02/07/2020 completed MEDGEN (Ammir Lucila seasonal 12:00:00 AM EDT Physician) Influenza, high dose 02/07/2020 completed MEDGEN (Ammir Lucila seasonal 12:00:00 AM EDT Physician) Influenza, high dose 01/31/2019 completed MEDGEN (Ammir Lucila seasonal 12:00:00 AM EDT Physician) Influenza, high dose 01/31/2019 completed MEDGEN (Ammir Lucila seasonal 12:00:00 AM EDT Physician) Influenza, high dose 01/31/2019 completed MEDGEN (Ammir Lucila seasonal 12:00:00 AM EDT Physician) Influenza, high dose 01/31/2019 completed MEDGEN (Ammir Lucila seasonal 12:00:00 AM EDT Physician) Influenza, high dose 01/31/2019 completed MEDGEN (Ammir Lucila seasonal 12:00:00 AM EDT Physician) Medications Medication Brand Start Product Dose Route Administrative Pharmacy [facility] Indications Reaction Description Data Name Date Form Instructions Instructions Source(s) LIDOCAINE complet LIDOCAINE MEDGEN EXTERNAL 2019 ed EXTERNAL (Ammir PATCH: 12:00: PATCH Lucila 00 AM Physician) EDT Capsaicin CAPSAI 01/16/ CREAM 1 complet CAPSAIC IN MEDGEN 0.25 MG/ML SANJUANITA 2019 ed TOPICAL (Ammir Topical TOPICA 12:00: Lucila Cream L:1985 00 AM Physician) CAPSAICIN 55 EDT TOPICAL:198 555 Acetaminoph TYLENO 01/16/ TABLET 40 complet TYLE NOL MEDGEN en 325 MG L:2092 2019 ed (Ammir Oral Tablet 87 12:00: Lucila [Tylenol] 00 AM Physician ) TYLENOL:209 EDT 387 Acetaminoph TYLENO 01/16/ TABLET 40 complet TYLE NOL MEDGEN en 325 MG L:2092 2019 ed (Ammir Oral Tablet 87 12:00: Lucila [Tylenol] 00 AM Physician ) TYLENOL:209 EDT 387 LIDOCAINE complet LIDOCAINE MED[facility] EXTERNAL 2020 ed EXTERNAL (Ammir PATCH: 12:00: PATCH Lucila AM Physician) EDT Capsaicin CAPSAI 01/16/ CREAM 1 complet CAPSAIC IN MEDGEN 0.25 MG/ML SANJUANITA 2019 ed TOPICAL (Ammir Topical TOPICA 12:00: Lucila Cream L:1984 AM Physician) CAPSAICIN 55 EDT TOPICAL:198 555 LIDOCAINE complet LIDOCAINE MED[facility] EXTERNAL 2020 ed EXTERNAL (Ammir PATCH: 12:00: PATCH Lucila AM Physician) EDT Capsaicin CAPSAI 01/16/ CREAM 1 complet CAPSAIC IN MEDGEN 0.25 MG/ML SANJUANITA 2019 ed TOPICAL (Ammir Topical TOPICA 12:00: Lucila Cream L:1984 AM Physician) CAPSAICIN 55 EDT TOPICAL:198 555 Capsaicin CAPSAI 01/16/ CREAM 1 complet CAPSAIC IN MEDGEN 0.25 MG/ML SANJUANITA 2019 ed TOPICAL (Ammir Topical TOPICA 12:00: Lucila Cream L:1984 AM Physician) CAPSAICIN 55 EDT TOPICAL:198 555 LIDOCAINE complet LIDOCAINE MED[facility] EXTERNAL 2020 ed EXTERNAL (Ammir PATCH: 12:00: PATCH Lucila AM Physician) EDT Acetaminoph TYLENO 01/16/ TABLET 40 complet TYLE NOL MEDGEN en 325 MG L:2092 2019 ed (Ammir Oral Tablet 87 12:00: Lucila [Tylenol] 00 AM Physician ) TYLENOL:209 EDT 387 Acetaminoph TYLENO 01/16/ TABLET 40 complet TYLE NOL MEDGEN en 325 MG L:2092 2019 ed (Ammir Oral Tablet 87 12:00: Lucila [Tylenol] 00 AM Physician ) TYLENOL:209 EDT 387 Betamethaso BETAME 01/01/ CREAM 1 complet BETAM ETHASON MEDGEN ne 0.5 THASON 2020 ed E-CLOTRIMAZO (Am brooks MG/ML / E-CLOT 12:00: LE Lucila Clotrimazol RIMAZO 00 AM Physi eliud) e 10 MG/ML LE:308 EDT Topical 714 Cream BETAMETHASO NE-CLOTRIMA ZOLE:308936 Betamethaso BETAME /19/ CREAM 1 complet BETAM ETHASON MEDGEN ne 0.5 SON 2019 ed E-CLOTRIMAZO (Am brooks MG/ML / E-CLOT 12:00: LE Lucila Clotrimazol RIMAZO 00 AM Physi eliud) e 10 MG/ML LE:308 EDT Topical 714 Cream BETAMETHASO NE-CLOTRIMA ZOLE:134690 Betamethaso BETAME /19/ CREAM 1 complet BETAM ETHASON MEDGEN ne 0.5 SON 2019 ed E-CLOTRIMAZO (Am brooks MG/ML / E-CLOT 12:00: LE Lucila Clotrimazol RIMAZO 00 AM Physi eliud) e 10 MG/ML LE:308 EDT Topical 714 Cream BETAMETHASO NE-CLOTRIMA ZOLE:033303 Betamethaso BETAME 19/ CREAM 1 complet BETAM ETHASON MEDGEN ne 0.5 2019 ed E-CLOTRIMAZO (Am brooks MG/ML / E-CLOT 12:00: LE Lucila Clotrimazol RIMAZO 00 AM Physi eliud) e 10 MG/ML LE:308 EDT Topical 714 Cream BETAMETHASO NE-CLOTRIMA ZOLE:548833 Betamethaso BETAME /19/ CREAM 1 complet BETAM ETHASON MEDGEN ne 0.5 2019 ed E-CLOTRIMAZO (Am brooks MG/ML / E-CLOT 12:00: LE Lucila Clotrimazol RIMAZO 00 AM Physi eliud) e 10 MG/ML LE:308 EDT Topical 714 Cream BETAMETHASO NE-CLOTRIMA ZOLE:275876 Warfarin COUMAD 11/19/ TABLET 30 complet COUMADI N MEDGEN Sodium 1 MG IN:2019 ed (Ammir Oral Tablet 288 12:00: Lucila COUMADIN:85 00 AM Physici an) 5288 EDT Warfarin COUMAD 11/19/ TABLET 30 complet COUMADI N MEDGEN Sodium 1 MG IN:2019 ed (Ammir Oral Tablet 288 12:00: Lucila COUMADIN:85 00 AM Physici an) 5288 EDT Warfarin COUMAD 07/07/ TABLET 30 complet COUMADI N MEDGEN Sodium 1 MG IN:2019 ed (Ammir Oral Tablet 288 12:00: Lucila COUMADIN:85 00 AM Physici an) 5288 EDT Warfarin COUMAD 11/19/ TABLET 30 complet COUMADI N MEDGEN Sodium 1 MG IN:2019 ed (Ammir Oral Tablet 288 12:00: Lucila COUMADIN:85 00 AM Physici an) 5288 EDT Warfarin COUMAD 11/19/ TABLET 30 complet COUMADI N MEDGEN Sodium 1 MG IN:2019 ed (Ammir Oral Tablet 288 12:00: Lucila COUMADIN:85 00 AM Physici an) 5288 EDT cetirizine ZYRTEC 06/10/ TABLET 90 complet ZYRTE C MEDGEN hydrochlori :[id number] ed (Ammir de 10 MG 26 12:00: Lucila Oral Tablet 00 AM Physici an) [Zyrtec] EDT ZYRTEC:1020 026 cetirizine ZYRTEC /10/ TABLET 90 complet ZYRTE C MEDGEN hydrochlori :14368 2019 ed (Ammir de 10 MG 26 12:00: Lucila Oral Tablet 00 AM Physici an) [Zyrtec] EDT ZYRTEC:1020 026 cetirizine ZYRTEC 06/10/ TABLET 90 complet ZYRTE C MEDGEN hydrochlori :22312 2019 ed (Ammir de 10 MG 26 12:00: Lucila Oral Tablet 00 AM Physici an) [Zyrtec] EDT ZYRTEC:1020 026 cetirizine ZYRTEC 06/10/ TABLET 90 complet ZYRTE C MEDGEN hydrochlori :31578 2019 ed (Ammir de 10 MG 26 12:00: Lucila Oral Tablet 00 AM Physici an) [Zyrtec] EDT ZYRTEC:1020 026 cetirizine ZYRTEC 06/10/ TABLET 90 complet ZYRTE C MEDGEN hydrochlori :49275 2019 ed (Ammir de 10 MG 26 12:00: Lucila Oral Tablet 00 AM Physici an) [Zyrtec] EDT ZYRTEC:1020 026 ALCOHOL complet ALCOHOL PADS MEDGEN PADS PAD: 2019 ed PAD (Ammir 12:00: Lucila 00 AM Physician) EST FREESTYLE complet FREESTYLE MEDGEN SYSTEM KIT: 2019 ed SYSTEM KIT (A mmir 12:00: Lucila 00 AM Physician) EST FREESTYLE complet FREESTYLE MEDGEN TEST IN 2019 ed TEST IN (Ammir VITRO 12:00: VITRO STRIP Rabad i STRIP: 00 AM Physician) EST ALCOHOL complet ALCOHOL PADS MEDGEN PADS PAD: 2019 ed PAD (Ammir 12:00: Lucila 00 AM Physician) EST LANCETS complet LANCETS MEDG EN MISCELLANEO 2019 ed MISCELLANEOU (Ammir US: 12:00: S Lucila 00 AM Physician) EST LANCETS complet LANCETS MEDG EN MISCELLANEO 2019 ed MISCELLANEOU (Ammir US: 12:00: S Lucila 00 AM Physician) EST FREESTYLE complet FREESTYLE MEDGEN TEST IN 2019 ed TEST IN (Ammir VITRO 12:00: VITRO STRIP Rabad i STRIP: 00 AM Physician) EST FREESTYLE complet FREESTYLE MEDGEN SYSTEM KIT: 2019 ed SYSTEM KIT (A mmir 12:00: Lucila 00 AM Physician) EST FREESTYLE complet FREESTYLE MEDGEN SYSTEM KIT: 2019 ed SYSTEM KIT (A mmir 12:00: Lucila 00 AM Physician) EST ALCOHOL complet ALCOHOL PADS MEDGEN PADS PAD: 2019 ed PAD (Ammir 12:00: Lucila 00 AM Physician) EST FREESTYLE complet FREESTYLE MEDGEN SYSTEM KIT: 2019 ed SYSTEM KIT (A mmir 12:00: Lucila 00 AM Physician) EST FREESTYLE complet FREESTYLE MEDGEN TEST IN 2019 ed TEST IN (Ammir VITRO 12:00: VITRO STRIP Rabad i STRIP: 00 AM Physician) EST FREESTYLE complet FREESTYLE MEDGEN TEST IN 2019 ed TEST IN (Ammir VITRO 12:00: VITRO STRIP Rabad i STRIP: 00 AM Physician) EST LANCETS complet LANCETS MEDG EN MISCELLANEO 2019 ed MISCELLANEOU (Ammir US: 12:00: S Lucila 00 AM Physician) EST ALCOHOL complet ALCOHOL PADS MEDGEN PADS PAD: 2019 ed PAD (Ammir 12:00: Lucila 00 AM Physician) EST FREESTYLE complet FREESTYLE MEDGEN SYSTEM KIT: 2019 ed SYSTEM KIT (A mmir 12:00: Lucila 00 AM Physician) EST LANCETS complet LANCETS MEDG EN MISCELLANEO 2019 ed MISCELLANEOU (Ammir US: 12:00: S Lucila 00 AM Physician) EST LANCETS complet LANCETS MEDG EN MISCELLANEO 2019 ed MISCELLANEOU (Ammir US: 12:00: S Lucila 00 AM Physician) EST FREESTYLE complet FREESTYLE MEDGEN TEST IN 2019 ed TEST IN (Ammir VITRO 12:00: VITRO STRIP Rabad i STRIP: 00 AM Physician) EST ALCOHOL complet ALCOHOL PADS MEDGEN PADS PAD: 2019 ed PAD (Ammir 12:00: Lucila 00 AM Physician) EST Budesonide SYMBIC 01/31/ AEROSOL 1 complet SYMB ICORT MEDGEN 0.16 ORT:59 2019 ed (Ammir MG/ACTUAT / 7829 12:00: Lucila formoterol 00 AM Physicia n) 0.0045 EDT MG/ACTUAT Inhalant Powder SYMBICORT:5 12995 Budesonide SYMBIC 01/31/ AEROSOL 1 complet SYMB ICORT MEDGEN 0.16 ORT:59 2019 ed (Ammir MG/ACTUAT / 7829 12:00: Lucila formoterol 00 AM Physicia n) 0.0045 EDT MG/ACTUAT Inhalant Powder SYMBICORT:5 90071 Budesonide SYMBIC 01/31/ AEROSOL 1 complet SYMB ICORT MEDGEN 0.16 ORT:59 2019 ed (Ammir MG/ACTUAT / 7829 12:00: Lucila formoterol 00 AM Physicia n) 0.0045 EDT MG/ACTUAT Inhalant Powder SYMBICORT:5 58017 Budesonide SYMBIC 01/31/ AEROSOL 1 complet SYMB ICORT MEDGEN 0.16 ORT:59 2019 ed (Ammir MG/ACTUAT / 7829 12:00: Lucila formoterol 00 AM Physicia n) 0.0045 EDT MG/ACTUAT Inhalant Powder SYMBICORT:5 08000 Budesonide SYMBIC 01/31/ AEROSOL 1 complet SYMB ICORT MEDGEN 0.16 ORT:59 2019 ed (Ammir MG/ACTUAT / 7829 12:00: Lucila formoterol 00 AM Physicia n) 0.0045 EDT MG/ACTUAT Inhalant Powder SYMBICORT:5 33157 Metformin METFOR 01/02/ TABLET 180 complet METFOR MIN MEDGEN hydrochlori MIN:86 2019 ed (Ammir de 500 MG 1007 12:00: Lucila Oral Tablet 00 AM Physici an) METFORMIN:8 EDT 37983 Metformin METFOR 01/02/ TABLET 180 complet METFOR MIN MEDGEN hydrochlori MIN:86 2019 ed (Ammir de 500 MG 1007 12:00: Lucila Oral Tablet 00 AM Physici an) METFORMIN:8 EDT 74734 Metformin METFOR 01/02/ TABLET 180 complet METFOR MIN MEDGEN hydrochlori MIN:86 2018 ed (Ammir de 500 MG 1007 12:00: Lucila Oral Tablet 00 AM Physici an) METFORMIN:8 EDT 12404 Metformin METFOR 01/02/ TABLET 180 complet METFOR MIN MEDGEN hydrochlori MIN:86 2019 ed (Ammir de 500 MG 1007 12:00: Lucila Oral Tablet 00 AM Physici an) METFORMIN:8 EDT 77490 Metformin METFOR 01/02/ TABLET 180 complet METFOR MIN MEDGEN hydrochlori MIN:86 2019 ed (Ammir de 500 MG 1007 12:00: Lucila Oral Tablet 00 AM Physici an) METFORMIN:8 EDT 10465 bicalutamid BICALU 01/01/ TABLET 30 complet BICA LUTAMIDE MEDGEN e 50 MG TAMIDE 2018 ed (Ammir Oral Tablet : 12:00: Raba di BICALUTAMID 3 00 AM Physici an) [id number] EDT bicalutamid BICALU 01/01/ TABLET 30 complet BICA LUTAMIDE MEDGEN e 50 MG TAMIDE 2018 ed (Ammir Oral Tablet : 12:00: Raba di BICALUTAMID 3 00 AM Physici an) [id number] EDT bicalutamid BICALU 01/01/ TABLET 30 complet BICA LUTAMIDE MEDGEN e 50 MG TAMIDE 2019 ed (Ammir Oral Tablet : 12:00: Raba di BICALUTAMID 3 00 AM Physici an) [id number] EDT bicalutamid BICALU 01/01/ TABLET 30 complet BICA LUTAMIDE MEDGEN e 50 MG TAMIDE 2018 ed (Ammir Oral Tablet : 12:00: Raba di BICALUTAMID 3 00 AM Physici an) [id number] EDT bicalutamid BICALU 01/01/ TABLET 30 complet BICA LUTAMIDE MEDGEN e 50 MG TAMIDE 2018 ed (Ammir Oral Tablet : 12:00: Raba di BICALUTAMID 3 00 AM Physici an) [id number] EDT Insurance Providers Payer name Policy type Policy ID Covered Covered alliance party's Policy P kathleen / Coverage alliance party ID relationship to [employer] Inf ormation type vines HIP MEDICARE [id number] SP [id number] VIP [employer]LL MEDICARE [id number] SP [id number] D[employer]LL MEDICARE [id number] SP [id number] COVID-19 SP [id number] SP [id number] (BUS OFF USE ONLY) Problems, Conditions, and Diagnoses Code Display Name Description Problem Type Effective Data Dates Source(s) R26.89 Other abnormalities OTHER ABNORMALITIES Problem 020 MEDGEN (Ammir of gait and OF GAIT AND 12:00:00 AM Lucila mobility MOBILITY EDT Physician) R26.89 Other abnormalities OTHER ABNORMALITIES Problem 020 MEDGEN (Ammir of gait and OF GAIT AND 12:00:00 AM Lucila mobility MOBILITY EDT Physician) R26.89 Other abnormalities OTHER ABNORMALITIES Problem 020 MEDGEN (Ammir of gait and OF GAIT AND 12:00:00 AM Lucila mobility MOBILITY EDT Physician) M25.561 Pain in right knee PAIN IN RIGHT KNEE Problem 0 MEDGEN (Ammir 12:00:00 AM Lucila EDT Physician) M25.561 Pain in right knee PAIN IN RIGHT KNEE Problem 0 MEDGEN (Ammir 12:00:00 AM Lucila EDT Physician) M25.561 Pain in right knee PAIN IN RIGHT KNEE Problem 0 MEDGEN (Ammir 12:00:00 AM Lucila EDT Physician) M25.561 Pain in right knee PAIN IN RIGHT KNEE Problem 0 MEDGEN (Ammir 12:00:00 AM Lucila EDT Physician) I48.91 Unspecified atrial UNSPECIFIED ATRIAL Problem 0 MEDGEN (Ammir fibrillation FIBRILLATION 12:00:00 AM Lucila EDT Physician) I48.91 Unspecified atrial UNSPECIFIED ATRIAL Problem 0 MEDGEN (Ammir fibrillation FIBRILLATION 12:00:00 AM Lucila EDT Physician) I48.91 Unspecified atrial UNSPECIFIED ATRIAL Problem 0 MEDGEN (Ammir fibrillation FIBRILLATION 12:00:00 AM Lucila EDT Physician) I48.91 Unspecified atrial UNSPECIFIED ATRIAL Problem 0 MEDGEN (Ammir fibrillation FIBRILLATION 12:00:00 AM Lucila EDT Physician) I48.91 Unspecified atrial UNSPECIFIED ATRIAL Problem 0 MEDGEN (Ammir fibrillation FIBRILLATION 12:00:00 AM Lucila EDT Physician) Z91.81 History of falling HISTORY OF FALLING Problem 0 MEDGEN (Ammir 12:00:00 AM Lucila EDT Physician) M25.562 Pain in left knee PAIN IN LEFT KNEE Problem 10/23/2019 MEDGEN (Ammir 12:00:00 AM Lucila EDT Physician) M25.462 Effusion, left knee EFFUSION, LEFT KNEE Problem 020 MEDGEN (Ammir 12:00:00 AM Lucila EDT Physician) Z91.81 History of falling HISTORY OF FALLING Problem 0 MEDGEN (Ammir 12:00:00 AM Lucila EDT Physician) M25.562 Pain in left knee PAIN IN LEFT KNEE Problem 10/23/2019 MEDGEN (Ammir 12:00:00 AM Lucila EDT Physician) M25.462 Effusion, left knee EFFUSION, LEFT KNEE Problem 020 MEDGEN (Ammir 12:00:00 AM Lucila EDT Physician) Z91.81 History of falling HISTORY OF FALLING Problem 0 MEDGEN (Ammir 12:00:00 AM Lucila EDT Physician) M25.562 Pain in left knee PAIN IN LEFT KNEE Problem 10/23/2019 MEDGEN (Ammir 12:00:00 AM Lucila EDT Physician) M25.462 Effusion, left knee EFFUSION, LEFT KNEE Problem 020 MEDGEN (Ammir 12:00:00 AM Lucila EDT Physician) Z91.81 History of falling HISTORY OF FALLING Problem 0 MEDGEN (Ammir 12:00:00 AM Lucila EDT Physician) M25.562 Pain in left knee PAIN IN LEFT KNEE Problem 10/23/2019 MEDGEN (Ammir 12:00:00 AM Lucila EDT Physician) M25.462 Effusion, left knee EFFUSION, LEFT KNEE Problem 020 MEDGEN (Ammir 12:00:00 AM Lucila EDT Physician) Z91.81 History of falling HISTORY OF FALLING Problem 0 MEDGEN (Ammir 12:00:00 AM Lucila EDT Physician) M25.562 Pain in left knee PAIN IN LEFT KNEE Problem 10/23/2019 MEDGEN (Ammir 12:00:00 AM Lucila EDT Physician) M25.462 Effusion, left knee EFFUSION, LEFT KNEE Problem 020 MEDGEN (Ammir 12:00:00 AM Lucila EDT Physician) L72.0 Epidermal cyst EPIDERMAL CYST Problem 05/08/2019 MEDGEN (Ammir 12:00:00 AM Lucila EST Physician) Z48.02 Encounter for ENCOUNTER FOR Problem 05/08/2019 MEDGEN ( Ammir removal of sutures REMOVAL OF SUTURES 12:00:00 AM Lucila EST Physician) L72.0 Epidermal cyst EPIDERMAL CYST Problem 05/08/2019 MEDGEN (Ammir 12:00:00 AM Lucila EST Physician) Z48.02 Encounter for ENCOUNTER FOR Problem 05/08/2019 MEDGEN ( Ammir removal of sutures REMOVAL OF SUTURES 12:00:00 AM Lucila EST Physician) L72.0 Epidermal cyst EPIDERMAL CYST Problem 05/08/2019 MEDGEN (Ammir 12:00:00 AM Lucila EST Physician) Z48.02 Encounter for ENCOUNTER FOR Problem 05/08/2019 MEDGEN ( Ammir removal of sutures REMOVAL OF SUTURES 12:00:00 AM Lucila EST Physician) L72.0 Epidermal cyst EPIDERMAL CYST Problem 05/08/2019 MEDGEN (Ammir 12:00:00 AM Lucila EST Physician) Z48.02 Encounter for ENCOUNTER FOR Problem 05/08/2019 MEDGEN ( Ammir removal of sutures REMOVAL OF SUTURES 12:00:00 AM Lucila EST Physician) L72.0 Epidermal cyst EPIDERMAL CYST Problem 05/08/2019 MEDGEN (Ammir 12:00:00 AM Lucila EST Physician) Z48.02 Encounter for ENCOUNTER FOR Problem 05/08/2019 MEDGEN ( Ammir removal of sutures REMOVAL OF SUTURES 12:00:00 AM Lucila EST Physician) Z48.1 Encounter for ENCOUNTER FOR Problem 05/02/2019 MEDGEN ( Ammir planned PLANNED 12:00:00 AM Lucila postprocedural POSTPROCEDURAL EST Physic rocco) wound closure WOUND CLOSURE Z48.1 Encounter for ENCOUNTER FOR Problem 05/02/2019 MEDGEN ( Ammir planned PLANNED 12:00:00 AM Lucila postprocedural POSTPROCEDURAL EST Physic rocco) wound closure WOUND CLOSURE Z48.1 Encounter for ENCOUNTER FOR Problem 05/02/2019 MEDGEN ( Ammir planned PLANNED 12:00:00 AM Lucila postprocedural POSTPROCEDURAL EST Physic rocco) wound closure WOUND CLOSURE Z48.1 Encounter for ENCOUNTER FOR Problem 05/02/2019 MEDGEN ( Ammir planned PLANNED 12:00:00 AM Lucila postprocedural POSTPROCEDURAL EST Physic rocco) wound closure WOUND CLOSURE Z48.1 Encounter for ENCOUNTER FOR Problem 05/02/2019 MEDGEN ( Ammir planned PLANNED 12:00:00 AM Lucila postprocedural POSTPROCEDURAL EST Physic rocco) wound closure WOUND CLOSURE L02.213 Cutaneous abscess CUTANEOUS ABSCESS Problem 04/05/2019 MEDGEN (Ammir of chest wall OF CHEST WALL 12:00:00 AM Lucila EST Physician) L02.213 Cutaneous abscess CUTANEOUS ABSCESS Problem 04/05/2019 MEDGEN (Ammir of chest wall OF CHEST WALL 12:00:00 AM Lucila EST Physician) L02.213 Cutaneous abscess CUTANEOUS ABSCESS Problem 04/05/2019 MEDGEN (Ammir of chest wall OF CHEST WALL 12:00:00 AM Lucila EST Physician) L02.213 Cutaneous abscess CUTANEOUS ABSCESS Problem 04/05/2019 MEDGEN (Ammir of chest wall OF CHEST WALL 12:00:00 AM Lucila EST Physician) L02.213 Cutaneous abscess CUTANEOUS ABSCESS Problem 04/05/2019 MEDGEN (Ammir of chest wall OF CHEST WALL 12:00:00 AM Lucila EST Physician) M79.641 Pain in right hand PAIN IN RIGHT HAND Problem 9 MEDGEN (Ammir 12:00:00 AM Lucila EDT Physician) M79.641 Pain in right hand PAIN IN RIGHT HAND Problem 9 MEDGEN (Ammir 12:00:00 AM Lucila EDT Physician) M79.641 Pain in right hand PAIN IN RIGHT HAND Problem 9 MEDGEN (Ammir 12:00:00 AM Lucila EDT Physician) M79.641 Pain in right hand PAIN IN RIGHT HAND Problem 9 MEDGEN (Ammir 12:00:00 AM Luicla EDT Physician) M79.641 Pain in right hand PAIN IN RIGHT HAND Problem 9 MEDGEN (Ammir 12:00:00 AM Lucila EDT Physician) Z51.89 Encounter for other ENCOUNTER FOR OTHER Problem 019 MEDGEN (Ammir specified aftercare SPECIFIED AFTERCARE 12:00:0 0 AM Lucila EDT Physician) Z09 Encounter for ENCOUNTER FOR Problem 02/28/2019 MEDGEN ( Ammir follow-up FOLLOW-UP 12:00:00 AM Lucila examination after EXAMINATION AFTER EDT Physician) completed treatment COMPLETED TREATMENT for conditions FOR CONDITIONS other than OTHER THAN malignant neoplasm MALIGNANT NEOPLASM Z51.89 Encounter for other ENCOUNTER FOR OTHER Problem 019 MEDGEN (Ammir specified aftercare SPECIFIED AFTERCARE 12:00:0 0 AM Lucila EDT Physician) Z09 Encounter for ENCOUNTER FOR Problem 02/28/2019 [facility] ( Ammir follow-up FOLLOW-UP 12:00:00 AM Lucila examination after EXAMINATION AFTER EDT Physician) completed treatment COMPLETED TREATMENT for conditions FOR CONDITIONS other than OTHER THAN malignant neoplasm MALIGNANT NEOPLASM Z51.89 Encounter for other ENCOUNTER FOR OTHER Problem 019 [facility] (Ammir specified aftercare SPECIFIED AFTERCARE 12:00:0 0 AM Lucila EDT Physician) Z09 Encounter for ENCOUNTER FOR Problem 02/28/2019 [facility] ( Ammir follow-up FOLLOW-UP 12:00:00 AM Lucila examination after EXAMINATION AFTER EDT Physician) completed treatment COMPLETED TREATMENT for conditions FOR CONDITIONS other than OTHER THAN malignant neoplasm MALIGNANT NEOPLASM Z51.89 Encounter for other ENCOUNTER FOR OTHER Problem 019 [facility] (Ammir specified aftercare SPECIFIED AFTERCARE 12:00:0 0 AM Lucila EDT Physician) Z09 Encounter for ENCOUNTER FOR Problem 02/28/2019 [facility] ( Ammir follow-up FOLLOW-UP 12:00:00 AM Lucila examination after EXAMINATION AFTER EDT Physician) completed treatment COMPLETED TREATMENT for conditions FOR CONDITIONS other than OTHER THAN malignant neoplasm MALIGNANT NEOPLASM Z51.89 Encounter for other ENCOUNTER FOR OTHER Problem 019 [facility] (Ammir specified aftercare SPECIFIED AFTERCARE 12:00:0 0 AM Lucila EDT Physician) Z09 Encounter for ENCOUNTER FOR Problem 02/28/2019 [facility] ( Ammir follow-up FOLLOW-UP 12:00:00 AM Lucila examination after EXAMINATION AFTER EDT Physician) completed treatment COMPLETED TREATMENT for conditions FOR CONDITIONS other than OTHER THAN malignant neoplasm MALIGNANT NEOPLASM Z23 Encounter for ENCOUNTER FOR Problem 01/31/2019 [facility] ( Ammir immunization IMMUNIZATION 12:00:00 AM Lucila EDT Physician) Z23 Encounter for ENCOUNTER FOR Problem 01/31/2019 [facility] ( Ammir immunization IMMUNIZATION 12:00:00 AM Lucila EDT Physician) Z23 Encounter for ENCOUNTER FOR Problem 01/31/2019 [facility] ( Ammir immunization IMMUNIZATION 12:00:00 AM Lucila EDT Physician) Z23 Encounter for ENCOUNTER FOR Problem 01/31/2019 [facility] ( Ammir immunization IMMUNIZATION 12:00:00 AM Lucila EDT Physician) Z23 Encounter for ENCOUNTER FOR Problem 01/31/2019 [facility] ( Ammir immunization IMMUNIZATION 12:00:00 AM Lucila EDT Physician) L72.3 Sebaceous cyst SEBACEOUS CYST Problem 01/01/2019 [facility] (Ammir 12:00:00 AM Lucila EDT Physician) C61 Malignant neoplasm MALIGNANT NEOPLASM Problem 9 [facility] (Ammir of prostate OF PROSTATE 12:00:00 AM Lucila EDT Physician) L72.3 Sebaceous cyst SEBACEOUS CYST Problem 01/01/2019 [facility] (Ammir 12:00:00 AM Lucila EDT Physician) C61 Malignant neoplasm MALIGNANT NEOPLASM Problem 9 [facility] (Ammir of prostate OF PROSTATE 12:00:00 AM Lucila EDT Physician) L72.3 Sebaceous cyst SEBACEOUS CYST Problem 01/01/2019 [facility] (Ammir 12:00:00 AM Lucila EDT Physician) C61 Malignant neoplasm MALIGNANT NEOPLASM Problem 9 [facility] (Ammir of prostate OF PROSTATE 12:00:00 AM Lucila EDT Physician) L72.3 Sebaceous cyst SEBACEOUS CYST Problem 01/01/2019 [facility] (Ammir 12:00:00 AM Lucila EDT Physician) C61 Malignant neoplasm MALIGNANT NEOPLASM Problem 9 [facility] (Ammir of prostate OF PROSTATE 12:00:00 AM Lucila EDT Physician) L72.3 Sebaceous cyst SEBACEOUS CYST Problem 01/01/2019 [facility] (Ammir 12:00:00 AM Lucila EDT Physician) C61 Malignant neoplasm MALIGNANT NEOPLASM Problem 9 [facility] (Ammir of prostate OF PROSTATE 12:00:00 AM Lucila EDT Physician) Surgeries/Procedures Procedure Description Date Indications Data Source(s) Documentation of current 02/07/2020 [facility] (Ammir Lucila medications (procedure) 12:00:00 AM EDT P hysician) Documentation of current 02/07/2020 [facility] (Ammir Lucila medications (procedure) 12:00:00 AM EDT P hysician) Documentation of current 02/07/2020 [facility] (Ammir Lucila medications (procedure) 12:00:00 AM EDT P hysician) Documentation of current 02/07/2020 [facility] (Ammir Lucila medications (procedure) 12:00:00 AM EDT P hysician) Documentation of current 02/07/2020 [facility] (Ammir Lucila medications (procedure) 12:00:00 AM EDT P hysician) Documentation of current 02/07/2020 [facility] (Ammir Lucila medications (procedure) 12:00:00 AM EDT P hysician) Documentation of current 02/07/2020 [facility] (Ammir Lucila medications (procedure) 12:00:00 AM EDT P hysician) Documentation of current 11/13/2019 [facility] (Ammir Lucila medications (procedure) 12:00:00 AM EDT P hysician) Documentation of current 11/13/2019 [facility] (Ammir Lucila medications (procedure) 12:00:00 AM EDT P hysician) Medication Reconciliation 11/13/2019 ME [facility] (Ammir Lucila (procedure) 12:00:00 AM EDT Physician) Documentation of current 11/13/2019 [facility] (Ammir Lucila medications (procedure) 12:00:00 AM EDT P hysician) Documentation of current 11/13/2019 [facility] (Ammir Lucila medications (procedure) 12:00:00 AM EDT P hysician) Documentation of current 11/13/2019 [facility] (Ammir Lucila medications (procedure) 12:00:00 AM EDT P hysician) Medication Reconciliation 11/13/2019 [facility] (Ammir Lucila (procedure) 12:00:00 AM EDT Physician) Documentation of current 11/13/2019 [facility] (Ammir Lucila medications (procedure) 12:00:00 AM EDT P hysician) Documentation of current 11/13/2019 [facility] (Ammir Lucila medications (procedure) 12:00:00 AM EDT P hysician) Documentation of current 11/13/2019 [facility] (Ammir Lucila medications (procedure) 12:00:00 AM EDT P hysician) Medication Reconciliation 11/13/2019 [facility] (Ammir Lucila (procedure) 12:00:00 AM EDT Physician) Documentation of current 11/13/2019 [facility] (Ammir Lucila medications (procedure) 12:00:00 AM EDT P hysician) Documentation of current 11/13/2019 [facility] (Ammir Lucila medications (procedure) 12:00:00 AM EDT P hysician) Documentation of current 11/13/2019 [facility] (Ammir Lucila medications (procedure) 12:00:00 AM EDT P hysician) Medication Reconciliation 11/13/2019 [facility] (Ammir Lucila (procedure) 12:00:00 AM EDT Physician) Documentation of current 11/13/2019 [facility] (Ammir Lucila medications (procedure) 12:00:00 AM EDT P hysician) Documentation of current 10/23/2019 [facility] (Ammir Lucila medications (procedure) 12:00:00 AM EDT P hysician) Documentation of current 10/23/2019 [facility] (Ammir Lucila medications (procedure) 12:00:00 AM EDT P hysician) Documentation of current 10/23/2019 [facility] (Ammir Lucila medications (procedure) 12:00:00 AM EDT P hysician) Documentation of current 10/23/2019 [facility] (Ammir Lucila medications (procedure) 12:00:00 AM EDT P hysician) Documentation of current 10/23/2019 [facility] (Ammir Lucila medications (procedure) 12:00:00 AM EDT P hysician) Documentation of current 10/23/2019 [facility] (Ammir Lucila medications (procedure) 12:00:00 AM EDT P hysician) Documentation of current 10/23/2019 [facility] (Ammir Lucila medications (procedure) 12:00:00 AM EDT P hysician) Documentation of current 10/23/2019 [facility] (Ammir Lucila medications (procedure) 12:00:00 AM EDT P hysician) Documentation of current 10/23/2019 [facility] (Ammir Lucila medications (procedure) 12:00:00 AM EDT P hysician) Documentation of current 10/23/2019 [facility] (Ammir Lucila medications (procedure) 12:00:00 AM EDT P hysician) Documentation of current 10/23/2019 [facility] (Ammir Lucila medications (procedure) 12:00:00 AM EDT P hysician) Documentation of current 10/23/2019 [facility] (Ammir Lucila medications (procedure) 12:00:00 AM EDT P hysician) Documentation of current 05/08/2019 [facility] (Ammir Lucila medications (procedure) 12:00:00 AM EST P hysician) Documentation of current 05/08/2019 [facility] (Ammir Lucila medications (procedure) 12:00:00 AM EST P hysician) Documentation of current 05/08/2019 [facility] (Ammir Lucila medications (procedure) 12:00:00 AM EST P hysician) Documentation of current 05/08/2019 [facility] (Ammir Lucila medications (procedure) 12:00:00 AM EST P hysician) Documentation of current 05/08/2019 [facility] (Ammir Lucila medications (procedure) 12:00:00 AM EST P hysician) Documentation of current 05/08/2019 [facility] (Ammir Lucila medications (procedure) 12:00:00 AM EST P hysician) Documentation of current 05/08/2019 [facility] (Ammir Lucila medications (procedure) 12:00:00 AM EST P hysician) Documentation of current 05/08/2019 [facility] (Ammir Lucila medications (procedure) 12:00:00 AM EST P hysician) Documentation of current 05/08/2019 [facility] (Ammir Lucila medications (procedure) 12:00:00 AM EST P hysician) Documentation of current 05/08/2019 [facility] (Ammir Lucila medications (procedure) 12:00:00 AM EST P hysician) Documentation of current 05/08/2019 [facility] (Ammir Lucila medications (procedure) 12:00:00 AM EST P hysician) Documentation of current 05/08/2019 [facility] (Ammir Lucila medications (procedure) 12:00:00 AM EST P hysician) Documentation of current 05/08/2019 [facility] (Ammir Lucila medications (procedure) 12:00:00 AM EST P hysician) Documentation of current 05/08/2019 [facility] (Ammir Lucila medications (procedure) 12:00:00 AM EST P hysician) Documentation of current 05/08/2019 [facility] (Ammir Lucila medications (procedure) 12:00:00 AM EST P hysician) Documentation of current 05/08/2019 [facility] (Ammir Lucila medications (procedure) 12:00:00 AM EST P hysician) Documentation of current 05/08/2019 [facility] (Ammir Lucila medications (procedure) 12:00:00 AM EST P hysician) Documentation of current 05/08/2019 [facility] (Ammir Lucila medications (procedure) 12:00:00 AM EST P hysician) Documentation of current 05/08/2019 [facility] (Ammir Lucila medications (procedure) 12:00:00 AM EST P hysician) Documentation of current 05/08/2019 [facility] (Ammir Lucila medications (procedure) 12:00:00 AM EST P hysician) Documentation of current 04/05/2019 [facility] (Ammir Lucila medications (procedure) 12:00:00 AM EST P hysician) Documentation of current 04/05/2019 [facility] (Ammir Lucila medications (procedure) 12:00:00 AM EST P hysician) Documentation of current 04/05/2019 [facility] (Ammir Lucila medications (procedure) 12:00:00 AM EST P hysician) Documentation of current 04/05/2019 [facility] (Ammir Lucila medications (procedure) 12:00:00 AM EST P hysician) Documentation of current 04/05/2019 [facility] (Ammir Lucila medications (procedure) 12:00:00 AM EST P hysician) Documentation of current 04/05/2019 [facility] (Ammir Lucila medications (procedure) 12:00:00 AM EST P hysician) Documentation of current 04/05/2019 [facility] (Ammir Lucila medications (procedure) 12:00:00 AM EST P hysician) Documentation of current 04/05/2019 [facility] (Ammir Lucila medications (procedure) 12:00:00 AM EST P hysician) Documentation of current 01/31/2019 [facility] (Ammir Lucila medications (procedure) 12:00:00 AM EDT P hysician) Documentation of current 01/31/2019 [facility] (Ammir Lucila medications (procedure) 12:00:00 AM EDT P hysician) Documentation of current 01/31/2019 [facility] (Ammir Lucila medications (procedure) 12:00:00 AM EDT P hysician) Documentation of current 01/31/2019 [facility] (Ammir Lucila medications (procedure) 12:00:00 AM EDT P hysician) Documentation of current 01/31/2019 [facility] (Ammir Lucila medications (procedure) 12:00:00 AM EDT P hysician) Documentation of current 01/31/2019 [facility] (Ammir Lucila medications (procedure) 12:00:00 AM EDT P hysician) Documentation of current 01/31/2019 [facility] (Ammir Lucila medications (procedure) 12:00:00 AM EDT P hysician) Documentation of current 01/31/2019 [facility] (Ammir Lucila medications (procedure) 12:00:00 AM EDT P hysician) Documentation of current 01/31/2019 [facility] (Ammir Lucila medications (procedure) 12:00:00 AM EDT P hysician) Documentation of current 01/31/2019 [facility] (Ammir Lucila medications (procedure) 12:00:00 AM EDT P hysician) Documentation of current 01/31/2019 [facility] (Ammir Lucila medications (procedure) 12:00:00 AM EDT P hysician) Documentation of current 01/31/2019 [facility] (Ammir Lucila medications (procedure) 12:00:00 AM EDT P hysician) Documentation of current 01/01/2019 [facility] (Ammir Lucila medications (procedure) 12:00:00 AM EDT P hysician) Documentation of current 01/01/2019 [facility] (Ammir Lucila medications (procedure) 12:00:00 AM EDT P hysician) Documentation of current 01/01/2019 [facility] (Ammir Lucila medications (procedure) 12:00:00 AM EDT P hysician) Documentation of current 01/01/2019 [facility] (Ammir Lucila medications (procedure) 12:00:00 AM EDT P hysician) Documentation of current 01/01/2019 [facility] (Ammir Lucila medications (procedure) 12:00:00 AM EDT P hysician) Documentation of current 01/01/2019 [facility] (Ammir Lucila medications (procedure) 12:00:00 AM EDT P hysician) Documentation of current 01/01/2019 [facility] (Ammir Lucila medications (procedure) 12:00:00 AM EDT P hysician) Documentation of current 01/01/2019 [facility] (Ammir Lucila medications (procedure) 12:00:00 AM EDT P hysician) Documentation of current 01/01/2019 [facility] (Ammir Lucila medications (procedure) 12:00:00 AM EDT P hysician) Documentation of current 01/01/2019 [facility] (Ammir Lucila medications (procedure) 12:00:00 AM EDT P hysician) Documentation of current 01/01/2019 [facility] (Ammir Lucila medications (procedure) 12:00:00 AM EDT P hysician) Documentation of current 01/01/2019 [facility] (Ammir Lucila medications (procedure) 12:00:00 AM EDT P hysician) Documentation of current 01/01/2019 [facility] (Ammir Lucila medications (procedure) 12:00:00 AM EDT P hysician) Documentation of current 01/01/2019 [facility] (Ammir Lucila medications (procedure) 12:00:00 AM EDT P hysician) Documentation of current 01/01/2019 [facility] (Ammir Lucila medications (procedure) 12:00:00 AM EDT P hysician) Documentation of current 01/01/2019 [facility] (Ammir Lucila medications (procedure) 12:00:00 AM EDT P hysician) Documentation of current 01/01/2019 [facility] (Ammir Lucila medications (procedure) 12:00:00 AM EDT P hysician) Documentation of current 01/01/2019 [facility] (Ammir Lucila medications (procedure) 12:00:00 AM EDT P hysician) Documentation of current 01/01/2019 [facility] (Ammir Lucila medications (procedure) 12:00:00 AM EDT P hysician) Documentation of current 01/01/2019 [facility] (Ammir Lucila medications (procedure) 12:00:00 AM EDT P hysician) Documentation of current 01/01/2019 [facility] (Ammir Lucila medications (procedure) 12:00:00 AM EDT P hysician) Documentation of current 01/01/2019 [facility] (Ammir Lucila medications (procedure) 12:00:00 AM EDT P hysician) Documentation of current 01/01/2019 [facility] (Ammir Lucila medications (procedure) 12:00:00 AM EDT P hysician) Documentation of current 01/01/2019 [facility] (Ammir Lucila medications (procedure) 12:00:00 AM EDT P hysician) Documentation of current 01/01/2019 [facility] (Ammir Lucila medications (procedure) 12:00:00 AM EDT P hysician) Documentation of current 01/01/2019 [facility] (Ammir Lucila medications (procedure) 12:00:00 AM EDT P hysician) Documentation of current 01/01/2019 [facility] (Ammir Lucila medications (procedure) 12:00:00 AM EDT P hysician) Documentation of current 01/01/2019 [facility] (Ammir Lucila medications (procedure) 12:00:00 AM EDT P hysician) Results ID Date Data Source [id number] 02/08/2020 07:53:00 PM EDT [facility] Received: 02/08/2020 at 01:35:00 QTE : [facility] [place], [address], Robby Darden MD Received: 02/08/2020 at 01:35:00 QTE : [facility] [place], [address]Robby MD Received: 02/08/2020 at 01:35:00 QTE : [place], [address]Robby MD Received: 02/08/2020 at 01:35:00 QTE : [facility] [place], [address]Robby MD Received: 02/08/2020 at 01:35:00 QTE : [facility] [place], [address]Robby MD Received: 02/08/2020 at 01:35:00 QTE : [facility] [place], [address], Robby Darden MD Name Value Range Interpretation Description Data Source(s ) Supporting Code Document(s ) aPTT in 36 sec 22-34 Above high normal [facility] Platelet poor Diagnostics plasma by Coagulation assay This test has not been validated for mon itoringunfractionated heparin therapy. For testing thatis validated for this type o f therapy, please referto the Heparin Anti-Xa assay (test code 05727).For additional i nformation, please refer tohttp://education.AREVS/ faq/YQX821(This link is being provided forinformational/educational purposes on ly.) INR in Platelet poor plasma by 2.2 Above high normal [facility] Coagulation assay Reference Range 0.9- 1.1Moderate-intensity Warfarin Therapy 2.0-3.0Higher-intensity Warfarin Therapy 3.0-4.0 Prothrombin time (PT) 21.3 sec 9.0-11.5 Above high normal [facility] ID Date Data Source [id number] 02/08/2020 07:53:00 PM EDT [facility] Received: 02/08/2020 at 01:35:00 QTE : [facility], [place], [address], Robby Darden MD Received: 02/08/2020 at 01:35:00 QTE : [facility] Char Lai [address] [facility] [place], [address], Robby Darden MD Received: 02/08/2020 at 01:35:00 QTE : [facility] [place] [address]Robby MD Received: 02/08/2020 at 01:35:00 QTE : [facility] [place], [address], Robby Darden MD Received: 02/08/2020 at 01:35:00 QTE : [facility] [place], [address]Robby MD Received: 02/08/2020 at 01:35:00 QTE : [facility], Char [address], [place], [address], Robby Darden MD Name Value Range Interpretation Description Data Source(s ) Supporting Code Document(s ) Glucose 93 mg/dL 65-99 Normal (applies to [facility] [Mass/volum non-numeric Diagnostics e] in Serum results) or Plasma Fasting reference interval Urea nitrogen 11 mg/dL 7-25 Normal (applies to [facility] [Mass/volume] in Serum non-numeric results) or Plasma Creatinine 0.86 mg/dL 0.70-1.18 Normal (applies to [facility] [Mass/volume] in Serum non-numeric results) or Plasma For patients >49 years of age, the refer ence limitfor Creatinine is approximately 13% higher for peopleidentified as -A merican. Glomerular filtration 84 mL/min/1.73m2 > OR = Normal (applies [facility] rate/1.73 sq 60 to non-numeric Diagnostics M.predicted [Volume results) Rate/Area] in Serum, Plasma or Blood by Creatinine-based formula (MDRD) Glomerular filtration 98 mL/min/1.73m2 > OR = Normal (applies [facility] rate/1.73 sq M 60 to non-numeric Diagnostic s predicted among blacks results) [Volume Rate/Area] in Serum or Plasma by Creatinine-based formula (MDRD) Urea NOT APPLICABLE 6-22 [facility] nitrogen/Creatinine (calc) Diagnostic s [Mass Ratio] in Serum or Plasma Sodium [Moles/volume] 140 mmol/L 135-146 Normal (applies Q uest in Serum or Plasma to non-numeric Diagno stics results) Potassium 4.4 mmol/L 3.5-5.3 Normal (applies [facility] [Moles/volume] in to non-numeric Diagnos tics Serum or Plasma results) Chloride 103 mmol/L 98-110 Normal (applies [facility] [Moles/volume] in to non-numeric Diagnos tics Serum or Plasma results) Carbon dioxide, total 30 mmol/L 20-32 Normal (applies Qu est [Moles/volume] in to non-numeric Diagnos tics Serum or Plasma results) Calcium [Mass/volume] 9.8 mg/dL 8.6-10.3 Normal (applies Qu est in Serum or Plasma to non-numeric Diagno stics results) Protein [Mass/volume] 7.0 g/dL 6.1-8.1 Normal (applies Qu est in Serum or Plasma to non-numeric Diagno stics results) Albumin [Mass/volume] 4.0 g/dL 3.6-5.1 Normal (applies Qu est in Serum or Plasma to non-numeric Diagno stics results) Globulin [Mass/volume] 3.0 g/dL (calc) 1.9-3.7 Normal (applies [facility] in Serum by to non-numeric Diagnostics calculation results) Albumin/Globulin [Mass 1.3 (calc) 1.0-2.5 Normal (applies [facility] Ratio] in Serum or to non-numeric Diagno stics Plasma results) Bilirubin.total 0.5 mg/dL 0.2-1.2 Normal (applies [facility] [Mass/volume] in Serum to non-numeric Di agnostics or Plasma results) Alkaline phosphatase 69 U/L 35-144 Normal (applies [facility] [Enzymatic to non-numeric Diagnostics activity/volume] in results) Serum or Plasma Aspartate 20 U/L 10-35 Normal (applies [facility] aminotransferase to non-numeric Diagnost ics [Enzymatic results) activity/volume] in Serum or Plasma Alanine 18 U/L 9-46 Normal (applies [facility] aminotransferase to non-numeric Diagnost ics [Enzymatic results) activity/volume] in Serum or Plasma ID Date Data Source [id number] 02/08/2020 07:53:00 PM EDT [facility] Received: 02/08/2020 at 01:35:00 QTE : [place], [address], Robby Darden MD Received: 02/08/2020 at 01:35:00 QTE : [place], [address]Robby MD Received: 02/08/2020 at 01:35:00 QTE : [place], [address]Robby MD Received: 02/08/2020 at 01:35:00 QTE : [place], [address]Robby MD Received: 02/08/2020 at 01:35:00 QTE : [facility], Char [address], [place], [address], Robby Darden MD Received: 02/08/2020 at 01:35:00 QTE : [facility], Char [address], [place], [address], Robby Darden MD Name Value Range Interpretation Description Data Sup porting Code Source(s) Document(s ) Leukocytes 9.2 3.8-10. Normal (applies [facility] [#/volume] in Thousand 8 to non-numeric Diagnostics Blood by /uL results) Automated count Erythrocytes 4.23 4.20-5. Normal (applies [facility] [#/volume] in Million/ 80 to non-numeric Diagnostics Blood by uL results) Automated count Hemoglobin 12.2 13.2-17 Below low normal [facility] [Mass/volume] in g/dL .1 Diagnostics Blood Hematocrit 36.3 % 38.5-50 Below low normal [facility] [Volume .0 Diagnostics Fraction] of Blood by Automated count Erythrocyte mean 85.8 fL 80.0-10 Normal (applies [facility] corpuscular 0.0 to non-numeric Diagnostics volume [Entitic results) volume] by Automated count Erythrocyte mean 28.8 pg 27.0-33 Normal (applies [facility] corpuscular .0 to non-numeric Diagnostics hemoglobin results) [Entitic mass] by Automated count Erythrocyte mean 33.6 32.0-36 Normal (applies [facility] corpuscular g/dL .0 to non-numeric Diagnostics hemoglobin results) concentration [Mass/volume] by Automated count Erythrocyte 13.1 % 11.0-15 Normal (applies [facility] distribution .0 to non-numeric Diagnostics width [Ratio] by results) Automated count Platelets 263 140-400 Normal (applies [facility] [#/volume] in Thousand to non-numeric Diagnostics Blood by /uL results) Automated count Platelet mean 11.1 fL 7.5-12. Normal (applies [facility] volume [Entitic 5 to non-numeric Diagnosti cs volume] in Blood results) by Stella ID Date Data Source [id number] 02/08/2020 07:53:00 PM EDT [facility] Received: 02/08/2020 at 01:35:00 QTE : [facility] [address], [place], [address], Robby Darden MD Received: 02/08/2020 at 01:35:00 QTE : [facility], [place], [address], Robby Darden MD Received: 02/08/2020 at 01:35:00 QTE : [facility], Char [address], [place], [address], Robby Darden MD Received: 02/08/2020 at 01:35:00 QTE : [facility], [place], [address], Robby Darden MD Received: 02/08/2020 at 01:35:00 QTE : [facility], [place], [address], Robby Darden MD Received: 02/08/2020 at 01:35:00 QTE : [facility], [place], [address], Robby Darden MD Name Value Range Interpretation Code Description Data Salome rce(s) Supporting Document(s ) Color of YELLOW Normal (applies to [facility] Urine non-numeric Diagnostics results) The preferred specimen for urinalysis is urinepreserved using a [facility] standard urine preservativetube (yellow capped, blue ba nd) that may be obtainedfrom your [facility] supplier.Please review resul ts with caution. Urinalysistesting on unpreserved urine may produce alteration of chemical constituents and deterioration of formedelements. Appearance of Urine CLEAR CLEAR Normal (applies to [email or web address]ostics non-numeric results) Specific gravity of 1.015 1.001-1.035 Normal (applies to [facility] Urine by Test strip non-numeric results) pH of Urine by Test 5.5 5.0-8.0 Normal (applies to [facility] strip non-numeric results) Glucose [Presence] NEGATIVE NEGATIVE Normal (applies to [facility] in Urine by Test non-numeric strip results) Bilirubin.total NEGATIVE NEGATIVE Normal (applies to [facility] [Presence] in Urine non-numeric by Test strip results) Ketones [Presence] NEGATIVE NEGATIVE Normal (applies to [facility] in Urine by Test non-numeric strip results) Hemoglobin NEGATIVE NEGATIVE Normal (applies to [facility] [Presence] in Urine non-numeric by Test strip results) Protein [Presence] NEGATIVE NEGATIVE Normal (applies to [facility] in Urine by Test non-numeric strip results) Nitrite [Presence] NEGATIVE NEGATIVE Normal (applies to [facility] in Urine by Test non-numeric strip results) Leukocyte esterase NEGATIVE NEGATIVE Normal (applies to [facility] [Presence] in Urine non-numeric by Test strip results) Leukocytes [#/area] NONE SEEN /HPF < OR = 5 Normal (applies to [facility] in Urine sediment non-numeric by Microscopy high results) power field Erythrocytes NONE SEEN /HPF < OR = 2 Normal ([facility]lies to [facility] [#/area] in Urine non-numeric sediment by results) Microscopy high power field Epithelial NONE SEEN /HPF < OR = 5 Normal (applies to [facility] cells.squamous non-numeric [#/area] in Urine results) sediment by Microscopy high power field Transitional cells [facility] [#/area] in Urine sediment by Microscopy high power field Bacteria [#/area] NONE SEEN /HPF NONE SEEN Normal (applies to [facility] in Urine sediment non-numeric by Microscopy high results) power field Epithelial [facility] cells.renal [#/area] in Urine sediment by Microscopy high power field Hyaline casts NONE SEEN /LPF NONE SEEN Normal ([facility]lies to [facility] [#/area] in Urine non-numeric sediment by results) Microscopy low power field Calcium oxalate [facility] crystals [#/area] in Urine sediment by Microscopy high power field Triple phosphate [facility] crystals [#/area] in Urine sediment by Microscopy high power field Urate crystals [facility] [#/area] in Urine sediment by Microscopy high power field Amorphous sediment [facility] [Presence] in Urine sediment by Light microscopy Crystals [#/area] [facility] in Urine sediment by Microscopy high power field Granular casts [facility] [#/area] in Urine sediment by Microscopy low power field Casts [#/area] in [facility] Urine sediment by Microscopy low power field Yeast [#/area] in [facility] Urine sediment by Microscopy high power field ID Date Data Source [id number] 02/08/2020 07:53:00 PM EDT [facility] Received: 02/08/2020 at 01:35:00 QTE : [facility], [address], [place], [address], Robby Darden MD Received: 02/08/2020 at 01:35:00 QTE : [facility], [address], [place], [address], Robby Darden MD Received: 02/08/2020 at 01:35:00 QTE : [facility], [address], [place], [address], Robby Darden MD Received: 02/08/2020 at 01:35:00 QTE : [facility], [address], [place], [address], Robby Darden MD Received: 02/08/2020 at 01:35:00 QTE : [facility], [address], [place], [address], Robby Darden MD Received: 02/08/2020 at 01:35:00 QTE : [facility], [address], [place], [address], Robby Darden MD Name Value Range Interpretation Description Data Sup porting Code Source(s) Document(s ) Bacteria NO CULTURE [facility] Urine by Culture ID Date Data Source [id number] 02/08/2020 07:53:00 PM EDT [facility] Received: 02/08/2020 at 01:35:00 QTE : [facility], Char [address] Sh[address], [place], [address], Robby Darden MD Received: 02/08/2020 at 01:35:00 QTE : [facility], [place], [address], Robby Darden MD Received: 02/08/2020 at 01:35:00 QTE : [facility], [place], [address], Robby Darden MD Received: 02/08/2020 at 01:35:00 QTE : [facility], [address], [place], [address], Robby Darden MD Received: 02/08/2020 at 01:35:00 QTE : [facility], [address], [place], [address], Robby Darden MD Received: 02/08/2020 at 01:35:00 QTE : [facility], [address], [place], [address], Robby Darden MD Name Value Range Interpretation Description Data Source(s ) Supporting Code Document(s ) Hemoglobin 6.8 % of <5.7 Above high normal [facility]Hem[facility] .total in Hgb Blood For someone without known diabetes, a he moglobin Y3ylfopf of 6.5% or greater indicates that they may havediabetes and this should be confirmed with a follow-uptest.For someone with known jimy betes, a value <7% indicatesthat their diabetes is well controlled and a valueg reater than or equal to 7% indicates suboptimalcontrol. A1c targets should be individualized based onduration of diabetes, age, comorbid conditions, andother consi derations.Currently, no consensus exists regarding use ofhemoglobin A1c for diagn osis of diabetes for children. ID Date Data Source [id number] 02/07/2020 12:00:00 AM EDT [facility] ([facility] Lucila Physician) Name Value Range Interpretation Description Data Sup porting Code Source(s) Document(s ) Hemoglobin A1c 6.8 % of Above high normal [facility] in Blood total Hgb (Ammir Lucila Physician) ID Date Data Source [id number] 02/07/2020 12:00:00 AM EDT [facility] ([facility] Lucila [facility]) Name Value Range Interpretation Description Data Sup porting Code Source(s) Document(s ) REFLEXIVE NO CULTURE Normal (applies [facility] URINE INDICATED to non-numeric (Ammir CULTURE results) Lucila Physician) ID Date Data Source [id number] 02/07/2020 12:00:00 AM EDT [facility] ([facility] Lucila [facility]) Name Value Range Interpretation Description Data Sup porting Code Source(s) Document(s ) Color of YELLOW Normal (applies [facility] Peritoneal to non-numeric (Ammir dialysis fluid results) Lucila Physician) Appearance of CLEAR Normal (applies [facility] Abdomen to non-numeric (Ammir results) Lucila Physician) Specific gravity 1.015 Normal (applies [facility] of Pericardial to non-numeric (Ammir fluid by results) Lucila Refractometry Physician) pH of Lower 5.5 Normal (applies [facility] respiratory to non-numeric (Ammir specimen results) Lucila Physician) Glucose NEGATIVE Normal (applies [facility] [Mass/volume] in to non-numeric (Ammir Urine collected results) Lucila for unspecified Physician) duration Bilirubin NEGATIVE Normal (applies [facility] [Presence] in to non-numeric (Ammir Peritoneal fluid results) Lucila Physician) Ketones NEGATIVE Normal (applies [facility] [Presence] in to non-numeric (Ammir Blood by Tablet results) Lucila Physician) OCCULT BLOOD NEGATIVE Normal (applies [facility] to non-numeric (Ammir results) Lucila Physician) Protein NEGATIVE Normal (applies [facility] [Mass/volume] in to non-numeric (Ammir Lower results) Lucila respiratory Physician) specimen Nitrite NEGATIVE Normal (applies [facility] [Presence] in to non-numeric (Ammir Urine by Test results) Lucila strip Physician) Leukocyte NEGATIVE Normal (applies [facility] esterase to non-numeric (Ammir [Presence] in results) Lucila Body fluid by Physician) Automated test strip WBC NONE SEEN Normal (applies [facility] to non-numeric (Ammir results) Lucila Physician) SQUAMOUS NONE SEEN Normal (applies [facility] EPITHELIAL CELLS to non-numeric (Ammir results) Lucila Physician) RBC NONE SEEN Normal (applies [facility] to non-numeric (Ammir results) Lucila Physician) Bacteria NONE SEEN Normal (applies [facility] [Presence] in to non-numeric (Ammir Prostatic fluid results) Lucila by Light Physician) microscopy HYALINE CAST NONE SEEN Normal (applies [facility] to non-numeric (Ammir results) Lucila Physician) ID Date Data Source [id number] 02/07/2020 12:00:00 AM EDT [facility] ([facility] Lucila [facility]) Name Value Range Interpretation Description Data Sup porting Code Source(s) Document(s ) Structure of 9.2 Normal (applies to [facility] plantar Thousand/ non-numeric (Ammir digital artery uL results) Lucila (body Physician) structure) RED BLOOD CELL 4.23 Normal (applies to [facility] COUNT Million/u non-numeric (Ammir L results) Lucila Physician) Hemoglobin 12.2 g/dL Below low normal [facility] [Mass/volume] (Ammir in Mixed Lucila venous blood Physician) by Oximetry Hematocrit 36.3 % Below low normal [facility] [Pure volume (Ammir fraction] of Lucila Blood by Physician) Automated count MCV 85.8 fL Normal (applies to [facility] non-numeric (Ammir results) Lucila Physician) MCH 28.8 pg Normal (applies to [facility] non-numeric (Ammir results) Lucila Physician) MCHC 33.6 g/dL Normal (applies to [facility] non-numeric (Ammir results) Lucila Physician) RDW 13.1 % Normal (applies to [facility] non-numeric (Ammir results) Lucila Physician) PLATELET COUNT 263 Normal (applies to [facility] Thousand/ non-numeric (Ammir uL results) Lucila Physician) MPV 11.1 fL Normal (applies to [facility] non-numeric (Ammir results) Lucila Physician) ID Date Data Source [id number] 02/07/2020 12:00:00 AM EDT [facility] ([facility] Lucila Phys[facility]) Name Value Range Interpretation Description Data Sup porting Code Source(s) Document(s ) Glucose 93 mg/dL Normal (applies [facility] [Mass/volume] to non-numeric (Ammir in Urine results) Lucila collected for Physician) unspecified duration UREA NITROGEN 11 mg/dL Normal (applies [facility] (BUN) to non-numeric (Ammir results) Lucila Physician) Creatinine 0.86 mg/dL Normal (applies [facility] [Interpretation to non-numeric (Ammir ] in Urine results) Lucila Physician) eGFR NON-AFR. 84 Normal (applies [facility] MALDIVIAN mL/min/1.73m to non-numeric (Ammir 2 results) Lucila Physician) eGFR 98 Normal (applies [facility] MALDIVIAN mL/min/1.73m to non-numeric (Ammir 2 results) Lucila Physician) Sodium 140 mmol/L Normal (applies [facility] [Moles/volume] to non-numeric (Ammir in Serum, results) Lucila Plasma or Blood Physician) BUN/CREATININE NOT Normal (applies [facility] RATIO APPLICABLE to non-numeric (Ammir results) Lucila Physician) Potassium 4.4 mmol/L Normal (applies [facility] [Mass/volume] to non-numeric (Ammir in Blood results) Lucila Physician) Chloride 103 mmol/L Normal (applies [facility] [Moles/volume] to non-numeric (Ammir in Serum, results) Lucila Plasma or Blood Physician) Carbon dioxide 30 mmol/L Normal (applies [facility] [VFr/PPres] in to non-numeric (Ammir Gas delivery results) Lucila system Physician) Calcium 9.8 mg/dL Normal (applies [facility] [Moles/volume] to non-numeric (Ammir in Urine results) Lucila collected for Physician) unspecified duration PROTEIN, TOTAL 7.0 g/dL Normal (applies [facility] to non-numeric (Ammir results) Lucila Physician) Microalbumin 4.0 g/dL Normal (applies [facility] [Mass/time] in to non-numeric (Ammir Urine collected results) Lucila for unspecified Physician) duration Globulin 3.0 g/dL Normal (applies [facility] [Mass/time] in (calc) to non-numeric (Ammir 24 hour Urine results) Lucila Physician) ALBUMIN/GLOBULI 1.3 (calc) Normal (applies [facility] N RATIO to non-numeric (Ammir results) Lucila Physician) BILIRUBIN, 0.5 mg/dL Normal (applies [facility] TOTAL to non-numeric (Ammir results) Lucila Physician) Alkaline 69 U/L Normal (applies [facility] phosphatase to non-numeric (Ammir [Enzymatic results) Lucila activity/volume Physician) ] in Serum, Plasma or Blood AST 20 U/L Normal (applies [facility] to non-numeric (Ammir results) Lucila Physician) ALT 18 U/L Normal (applies [facility] to non-numeric (Ammir results) Lucila Physician) ID Date Data Source [id number] 02/07/2020 12:00:00 AM EDT [facility] ([facility] Lucila [facility]) Name Value Range Interpretation Description Data Sup porting Code Source(s) Document(s ) PARTIAL 36 sec Above high normal [facility] THROMBOPLASTIN (Ammir TIME, ACTIVATED Lucila Physician) INR 2.2 Above high normal [facility] ([facility] Lucila Physician) PT 21.3 sec Above high normal [facility] ([facility]mm[facility] Lucila Physician) ID Date Data Source [id number] 12/15/2019 10:50:00 AM EDT [facility] Name Value Range Interpretation Description Data Sup porting Code Source(s) Document(s ) SARS [facility] coronavirus 2 RNA This lab was ordered by [facility] and reported by [facility]. ID Date Data Source [id number] 11/09/2019 12:00:00 AM EDT [facility] ([facility] Lucila Physician) Name Value Range Interpretation Code Description Data Salome rce(s) Supporting Document(s ) CULTURE, Normal (applies to [facility] (Amm ir URINE, non-numeric Lucila ROUTINE results) Physician) ID Date Data Source [id number] 11/09/2019 12:00:00 AM EDT [facility] ([facility] Lucila Physician) Name Value Range Interpretation Code Description Data Supporting Source(s) Document(s ) REFLEXIVE Normal (applies to [facility] (Amm ir URINE CULTURE non-numeric Lucila results) Physician) ID Date Data Source [id number] 11/09/2019 12:00:00 AM EDT [facility] ([facility] Lucila Physician) Name Value Range Interpretation Description Data Sup porting Code Source(s) Document(s ) Color of DARK YELLOW Normal (applies [facility] Peritoneal to non-numeric (Ammir dialysis fluid results) Lucila Physician) Appearance of CLOUDY Abnormal [facility] Abdomen (applies to (Ammir non-numeric Lucila results) Physician) Specific gravity 1.018 Normal (applies [facility] of Pericardial to non-numeric (Ammir fluid by results) Lucila Refractometry Physician) pH of Lower 5.5 Normal (applies [facility] respiratory to non-numeric (Ammir specimen results) Lucila Physician) Glucose NEGATIVE Normal (applies [facility] [Mass/volume] in to non-numeric (Ammir Urine collected results) Lucila for unspecified Physician) duration Bilirubin NEGATIVE Normal (applies [facility] [Presence] in to non-numeric (Ammir Peritoneal fluid results) Lucila Physician) Ketones NEGATIVE Normal (applies [facility] [Presence] in to non-numeric (Ammir Blood by Tablet results) Lucila Physician) OCCULT BLOOD NEGATIVE Normal (applies [facility] to non-numeric (Ammir results) Lucila Physician) Protein NEGATIVE Normal (applies [facility] [Mass/volume] in to non-numeric (Ammir Lower results) Lucila respiratory Physician) specimen Nitrite POSITIVE Abnormal [facility] [Presence] in (applies to (Ammir Urine by Test non-numeric Lucila strip results) Physician) Leukocyte Abnormal [facility] esterase (applies to (Ammir [Presence] in non-numeric Lucila Body fluid by results) Physician) Automated test strip WBC 6-10 Abnormal [facility] (applies to (Ammir non-numeric Lucila results) Physician) RBC 0-2 Normal (applies [facility] to non-numeric (Ammir results) Lucila Physician) SQUAMOUS 0-5 Normal (applies [facility] EPITHELIAL CELLS to non-numeric (Ammir results) Lucila Physician) Bacteria MANY Abnormal [facility] [Presence] in (applies to (Ammir Prostatic fluid non-numeric Lucila by Light results) Physician) microscopy Calcium oxalate MANY Abnormal [facility] crystals (applies to (Ammir [Presence] in non-numeric Lucila Urine sediment results) Physician) by Light microscopy HYALINE CAST NONE SEEN Normal (applies [facility] to non-numeric (Ammir results) Lucila Physician) ID Date Data Source [id number] 11/09/2019 12:00:00 AM EDT [facility] ([facility] Lucila [facility]) Name Value Range Interpretation Description Data Sup porting Code Source(s) Document(s ) CREATININE, 131 mg/dL Normal (applies to [facility] (A mmir RANDOM non-numeric Lucila URINE results) Physician) ALBUMIN, 1.3 mg/dL Normal (applies to [facility] (Amm ir URINE non-numeric Lucila results) Physician) ALBUMIN/CRE 10 mcg/mg Normal (applies to [facility] (A mmir ATININE creat non-numeric Lucila RATIO, results) Physician) RANDOM URINE ID Date Data Source [id number] 11/09/2019 12:00:00 AM EDT [facility] ([facility] Lucila Physician) Name Value Range Interpretation Description Data Sup porting Code Source(s) Document(s ) PARTIAL 31 sec Normal (applies [facility] THROMBOPLASTIN to non-numeric (Ammir TIME, ACTIVATED results) Lucila Physician) INR 1.3 Above high normal [facility] (Ammir Lucila Physician) PT 12.7 sec Above high normal [facility] (Ammir Lucila Physician) ID Date Data Source [id number] 11/09/2019 12:00:00 AM EDT [facility] ([facility] Lucila Physician) Name Value Range Interpretation Code Description Data Salome rce(s) Supporting Document(s ) CULTURE, Normal (applies to [facility] (Amm ir URINE, non-numeric Lucila ROUTINE results) Physician) ID Date Data Source [id number] 11/09/2019 12:00:00 AM EDT [facility] ([facility] Lucila Physician) Name Value Range Interpretation Description Data Sup porting Code Source(s) Document(s ) RED BLOOD CELL 4.21 Normal (applies to [facility] COUNT Million/u non-numeric (Ammir L results) Lucila Physician) Hemoglobin 12.2 g/dL Below low normal [facility] [Mass/volume] (Ammir in Mixed Lucila venous blood Physician) by Oximetry Hematocrit 36.3 % Below low normal [facility] [Pure volume (Ammir fraction] of Lucila Blood by Physician) Automated count MCV 86.2 fL Normal (applies to [facility] non-numeric (Ammir results) Lucila Physician) MCH 29.0 pg Normal (applies to [facility] non-numeric (Ammir results) Lucila Physician) MCHC 33.6 g/dL Normal (applies to [facility] non-numeric (Ammir results) Lucila Physician) PLATELET COUNT 444 Above high normal [facility] Thousand/ (Ammir uL Lucila Physician) RDW 13.4 % Normal (applies to [facility] non-numeric (Ammir results) Lucila Physician) MPV 10.7 fL Normal (applies to [facility] non-numeric (Ammir results) Lucila Physician) REFLEXIVE Normal (applies to [facility] URINE CULTURE non-numeric (Ammir results) Lucila Physician) ID Date Data Source [id number] 11/09/2019 12:00:00 AM EDT [facility] ([facility] Lucila Physician) Name Value Range Interpretation Description Data Sup porting Code Source(s) Document(s ) Color of DARK YELLOW Normal (applies [facility] Peritoneal to non-numeric (Ammir dialysis fluid results) Lucila Physician) Appearance of CLOUDY Abnormal [facility] Abdomen (applies to (Ammir non-numeric Lucila results) Physician) Specific gravity 1.018 Normal (applies [facility] of Pericardial to non-numeric (Ammir fluid by results) Luclia Refractometry Physician) pH of Lower 5.5 Normal (applies [facility] respiratory to non-numeric (Ammir specimen results) Lucila Physician) Glucose NEGATIVE Normal (applies [facility] [Mass/volume] in to non-numeric (Ammir Urine collected results) Lucila for unspecified Physician) duration Bilirubin NEGATIVE Normal (applies [facility] [Presence] in to non-numeric (Ammir Peritoneal fluid results) Lucila Physician) Ketones NEGATIVE Normal (applies [facility] [Presence] in to non-numeric (Ammir Blood by Tablet results) Lucila Physician) OCCULT BLOOD NEGATIVE Normal (applies [facility] to non-numeric (Ammir results) Lucila Physician) Protein NEGATIVE Normal (applies [facility] [Mass/volume] in to non-numeric (Ammir Lower results) Lucila respiratory Physician) specimen Nitrite POSITIVE Abnormal [facility] [Presence] in (applies to (Ammir Urine by Test non-numeric Lucila strip results) Physician) Leukocyte Abnormal [facility] esterase (applies to (Ammir [Presence] in non-numeric Lucila Body fluid by results) Physician) Automated test strip WBC 6-10 Abnormal [facility] (applies to (Ammir non-numeric Lucila results) Physician) RBC 0-2 Normal (applies [facility] to non-numeric (Ammir results) Lucila Physician) SQUAMOUS 0-5 Normal (applies [facility] EPITHELIAL CELLS to non-numeric (Ammir results) Lucila Physician) Bacteria MANY Abnormal [facility] [Presence] in (applies to (Ammir Prostatic fluid non-numeric Lucila by Light results) Physician) microscopy Calcium oxalate MANY Abnormal [facility] crystals (applies to (Ammir [Presence] in non-numeric Lucila Urine sediment results) Physician) by Light microscopy HYALINE CAST NONE SEEN Normal (applies [facility] to non-numeric (Ammir results) Lucila Physician) ID Date Data Source [id number] 11/09/2019 12:00:00 AM EDT [facility] ([facility]mmir Lucila Physician) Name Value Range Interpretation Description Data Sup porting Code Source(s) Document(s ) CREATININE, 131 mg/dL Normal (applies to [facility] (A mmir RANDOM non-numeric Lucila URINE results) Physician) ALBUMIN, 1.3 mg/dL Normal (applies to [facility] (Amm ir URINE non-numeric Lucila results) Physician) ALBUMIN/CRE 10 mcg/mg Normal (applies to [facility] (A mmir ATININE creat non-numeric Lucila RATIO, results) Physician) RANDOM URINE ID Date Data Source [id number] 11/09/2019 12:00:00 AM EDT [facility] ([facility]mmir Lucila Physician) Name Value Range Interpretation Description Data Sup porting Code Source(s) Document(s ) PARTIAL 31 sec Normal (applies [facility] THROMBOPLASTIN to non-numeric (Ammir TIME, ACTIVATED results) Lucila Physician) INR 1.3 Above high normal [facility] (Ammir Lucila Physician) PT 12.7 sec Above high normal [facility] (Ammir Lucila Physician) ID Date Data Source [id number] 11/09/2019 12:00:00 AM EDT [facility] ([facility]mmir Lucila Physician) Name Value Range Interpretation Code Description Data Salome rce(s) Supporting Document(s ) CULTURE, Normal (applies to [facility] (Amm ir URINE, non-numeric Lucila ROUTINE results) Physician) ID Date Data Source [id number] 11/09/2019 12:00:00 AM EDT [facility] (Ammir Lucila Physician) Name Value Range Interpretation Code Description Data Supporting Source(s) Document(s ) REFLEXIVE Normal (applies to [facility] (Amm ir URINE CULTURE non-numeric Lucila results) Physician) ID Date Data Source [id number] 11/09/2019 12:00:00 AM EDT [facility] (Ammir Lucila Physician) Name Value Range Interpretation Description Data Sup porting Code Source(s) Document(s ) Color of DARK YELLOW Normal (applies [facility] Peritoneal to non-numeric (Ammir dialysis fluid results) Lucila Physician) Appearance of CLOUDY Abnormal [facility] Abdomen (applies to (Ammir non-numeric Lucila results) Physician) Specific gravity 1.018 Normal (applies [facility] of Pericardial to non-numeric (Ammir fluid by results) Lucila Refractometry Physician) pH of Lower 5.5 Normal (applies [facility] respiratory to non-numeric (Ammir specimen results) Lucila Physician) Bilirubin NEGATIVE Normal (applies [facility] [Presence] in to non-numeric (Ammir Peritoneal fluid results) Lucila Physician) Glucose NEGATIVE Normal (applies [facility] [Mass/volume] in to non-numeric (Ammir Urine collected results) Lucila for unspecified Physician) duration Ketones NEGATIVE Normal (applies [facility] [Presence] in to non-numeric (Ammir Blood by Tablet results) Lucila Physician) OCCULT BLOOD NEGATIVE Normal (applies [facility] to non-numeric (Ammir results) Lucila Physician) Protein NEGATIVE Normal (applies [facility] [Mass/volume] in to non-numeric (Ammir Lower results) Lucila respiratory Physician) specimen Nitrite POSITIVE Abnormal [facility] [Presence] in (applies to (Ammir Urine by Test non-numeric Lucila strip results) Physician) Leukocyte Abnormal [facility] esterase (applies to (Ammir [Presence] in non-numeric Lucila Body fluid by results) Physician) Automated test strip WBC 6-10 Abnormal [facility] (applies to (Ammir non-numeric Lucila results) Physician) RBC 0-2 Normal (applies [facility] to non-numeric (Ammir results) Lucila Physician) SQUAMOUS 0-5 Normal (applies [facility] EPITHELIAL CELLS to non-numeric (Ammir results) Lucila Physician) Bacteria MANY Abnormal [facility] [Presence] in (applies to (Ammir Prostatic fluid non-numeric Lucila by Light results) Physician) microscopy Calcium oxalate MANY Abnormal [facility] crystals (applies to (Ammir [Presence] in non-numeric Lucila Urine sediment results) Physician) by Light microscopy HYALINE CAST NONE SEEN Normal (applies [facility] to non-numeric (Ammir results) Lucila Physician) ID Date Data Source [id number] 11/09/2019 12:00:00 AM EDT [facility] (Ammir Lucila Physician) Name Value Range Interpretation Description Data Sup porting Code Source(s) Document(s ) CREATININE, 131 mg/dL Normal (applies to [facility] (A mmir RANDOM non-numeric Lucila URINE results) Physician) ALBUMIN, 1.3 mg/dL Normal (applies to [facility] (Amm ir URINE non-numeric Lucila results) Physician) ALBUMIN/CRE 10 mcg/mg Normal (applies to [facility] (A mmir ATININE creat non-numeric Lucila RATIO, results) Physician) RANDOM URINE ID Date Data Source [id number] 11/09/2019 12:00:00 AM EDT [facility] (Ammir Lucila Physician) Name Value Range Interpretation Description Data Sup porting Code Source(s) Document(s ) PARTIAL 31 sec Normal (applies [facility] THROMBOPLASTIN to non-numeric (Ammir TIME, ACTIVATED results) Lucila Physician) INR 1.3 Above high normal [facility] (Ammir Lucila Physician) PT 12.7 sec Above high normal [facility] (Ammir Lucila Physician) ID Date Data Source [id number] 11/09/2019 12:00:00 AM EDT [facility] (Ammir Lucila Physician) Name Value Range Interpretation Code Description Data Salome rce(s) Supporting Document(s ) CULTURE, Normal (applies to [facility] (Amm ir URINE, non-numeric Lucila ROUTINE results) Physician) ID Date Data Source [id number] 11/09/2019 12:00:00 AM EDT [facility] (Ammir Lucila Physician) Name Value Range Interpretation Code Description Data Supporting Source(s) Document(s ) REFLEXIVE Normal (applies to [facility] (Amm ir URINE CULTURE non-numeric Lucila results) Physician) ID Date Data Source [id number] 11/09/2019 12:00:00 AM EDT [facility] (Ammir Lucila Physician) Name Value Range Interpretation Description Data Sup porting Code Source(s) Document(s ) Color of DARK YELLOW Normal (applies [facility] Peritoneal to non-numeric (Ammir dialysis fluid results) Lucila Physician) Appearance of CLOUDY Abnormal [facility] Abdomen (applies to (Ammir non-numeric Lucila results) Physician) Specific gravity 1.018 Normal (applies [facility] of Pericardial to non-numeric (Ammir fluid by results) Lucila Refractometry Physician) pH of Lower 5.5 Normal (applies [facility] respiratory to non-numeric (Ammir specimen results) Lucila Physician) Glucose NEGATIVE Normal (applies [facility] [Mass/volume] in to non-numeric (Ammir Urine collected results) Lucila for unspecified Physician) duration Bilirubin NEGATIVE Normal (applies [facility] [Presence] in to non-numeric (Ammir Peritoneal fluid results) Lucila Physician) Ketones NEGATIVE Normal (applies [facility] [Presence] in to non-numeric (Ammir Blood by Tablet results) Lucila Physician) OCCULT BLOOD NEGATIVE Normal (applies [facility] to non-numeric (Ammir results) Lucila Physician) Protein NEGATIVE Normal (applies [facility] [Mass/volume] in to non-numeric (Ammir Lower results) Lucila respiratory Physician) specimen Nitrite POSITIVE Abnormal [facility] [Presence] in (applies to (Ammir Urine by Test non-numeric Lucila strip results) Physician) Leukocyte Abnormal [facility] esterase (applies to (Ammir [Presence] in non-numeric Lucila Body fluid by results) Physician) Automated test strip WBC 6-10 Abnormal [facility] (applies to (Ammir non-numeric Lucila results) Physician) RBC 0-2 Normal (applies [facility] to non-numeric (Ammir results) Lucila Physician) SQUAMOUS 0-5 Normal (applies [facility] EPITHELIAL CELLS to non-numeric (Ammir results) Lucila Physician) Bacteria MANY Abnormal [facility] [Presence] in (applies to (Ammir Prostatic fluid non-numeric Lucila by Light results) Physician) microscopy Calcium oxalate MANY Abnormal [facility] crystals (applies to (Ammir [Presence] in non-numeric Lucila Urine sediment results) Physician) by Light microscopy HYALINE CAST NONE SEEN Normal (applies [facility] to non-numeric (Ammir results) Lucila Physician) ID Date Data Source [id number] 11/09/2019 12:00:00 AM EDT [facility] (Ammir Lucila Physician) Name Value Range Interpretation Description Data Sup porting Code Source(s) Document(s ) CREATININE, 131 mg/dL Normal (applies to [facility] (A mmir RANDOM non-numeric Lucila URINE results) Physician) ALBUMIN, 1.3 mg/dL Normal (applies to [facility] (Amm ir URINE non-numeric Lucila results) Physician) ALBUMIN/CRE 10 mcg/mg Normal (applies to [facility] (A mmir ATININE creat non-numeric Lucila RATIO, results) Physician) RANDOM URINE ID Date Data Source [id number] 11/09/2019 12:00:00 AM EDT [facility] (Ammir Lucila Physician) Name Value Range Interpretation Description Data Sup porting Code Source(s) Document(s ) PARTIAL 31 sec Normal (applies [facility] THROMBOPLASTIN to non-numeric (Ammir TIME, ACTIVATED results) Lucila Physician) INR 1.3 Above high normal [facility] (Ammir Lucila Physician) PT 12.7 sec Above high normal [facility] (Ammir Lucila Physician) ID Date Data Source [id number] 11/09/2019 12:00:00 AM EDT [facility] (Ammir Lucila Physician) Name Value Range Interpretation Code Description Data Salome rce(s) Supporting Document(s ) CULTURE, Normal (applies to [facility] (Amm ir URINE, non-numeric Lucila ROUTINE results) Physician) ID Date Data Source [id number] 11/09/2019 12:00:00 AM EDT [facility] (Ammir Lucila Physician) Name Value Range Interpretation Code Description Data Supporting Source(s) Document(s ) REFLEXIVE Normal (applies to [facility] (Amm ir URINE CULTURE non-numeric Lucila results) Physician) ID Date Data Source [id number] 11/09/2019 12:00:00 AM EDT [facility] (Ammir Lucila Physician) Name Value Range Interpretation Description Data Sup porting Code Source(s) Document(s ) Color of DARK YELLOW Normal (applies [facility] Peritoneal to non-numeric (Ammir dialysis fluid results) Lucila Physician) Appearance of CLOUDY Abnormal [facility] Abdomen (applies to (Ammir non-numeric Lucila results) Physician) Specific gravity 1.018 Normal (applies [facility] of Pericardial to non-numeric (Ammir fluid by results) Lucila Refractometry Physician) pH of Lower 5.5 Normal (applies [facility] respiratory to non-numeric (Ammir specimen results) Lucila Physician) Glucose NEGATIVE Normal (applies [facility] [Mass/volume] in to non-numeric (Ammir Urine collected results) Lucila for unspecified Physician) duration Bilirubin NEGATIVE Normal (applies [facility] [Presence] in to non-numeric (Ammir Peritoneal fluid results) Lucila Physician) Ketones NEGATIVE Normal (applies [facility] [Presence] in to non-numeric (Ammir Blood by Tablet results) Lucila Physician) OCCULT BLOOD NEGATIVE Normal (applies [facility] to non-numeric (Ammir results) Lucila Physician) Protein NEGATIVE Normal (applies [facility] [Mass/volume] in to non-numeric (Ammir Lower results) Lucila respiratory Physician) specimen Nitrite POSITIVE Abnormal [facility] [Presence] in (applies to (Ammir Urine by Test non-numeric Lucila strip results) Physician) Leukocyte Abnormal [facility] esterase (applies to (Ammir [Presence] in non-numeric Lucila Body fluid by results) Physician) Automated test strip WBC 6-10 Abnormal [facility] (applies to (Ammir non-numeric Lucila results) Physician) RBC 0-2 Normal (applies [facility] to non-numeric (Ammir results) Lucila Physician) SQUAMOUS 0-5 Normal (applies [facility] EPITHELIAL CELLS to non-numeric (Ammir results) Lucila Physician) Bacteria MANY Abnormal [facility] [Presence] in (applies to (Ammir Prostatic fluid non-numeric Lucila by Light results) Physician) microscopy Calcium oxalate MANY Abnormal [facility] crystals (applies to (Ammir [Presence] in non-numeric Lucila Urine sediment results) Physician) by Light microscopy HYALINE CAST NONE SEEN Normal (applies [facility] to non-numeric (Ammir results) Lucila Physician) ID Date Data Source [id number] 11/09/2019 12:00:00 AM EDT [facility] (Ammir Lucila Physician) Name Value Range Interpretation Description Data Sup porting Code Source(s) Document(s ) CREATININE, 131 mg/dL Normal (applies to [facility] (A mmir RANDOM non-numeric Lucila URINE results) Physician) ALBUMIN, 1.3 mg/dL Normal (applies to [facility] (Amm ir URINE non-numeric Lucila results) Physician) ALBUMIN/CRE 10 mcg/mg Normal (applies to [facility] (A mmir ATININE creat non-numeric Lucila RATIO, results) Physician) RANDOM URINE ID Date Data Source [id number] 11/09/2019 12:00:00 AM EDT [facility] (Ammir Lucila Physician) Name Value Range Interpretation Description Data Sup porting Code Source(s) Document(s ) PARTIAL 31 sec Normal (applies [facility] THROMBOPLASTIN to non-numeric (Ammir TIME, ACTIVATED results) Lucila Physician) INR 1.3 Above high normal [facility] (Ammir Lucila Physician) PT 12.7 sec Above high normal [facility] (Ammir Lucila Physician) ID Date Data Source [id number] 10/23/2019 12:00:00 AM EDT [facility] (Ammir Lucila Physician) Name Value Range Interpretation Description Data Sup porting Code Source(s) Document(s ) CHOLESTEROL, 107 Normal (applies [facility] TOTAL mg/dL to non-numeric (Ammir results) Lucila Physician) HDL CHOLESTEROL 50 mg/dL Normal (applies [facility] to non-numeric (Ammir results) Lucila Physician) TRIGLYCERIDES 102 Normal (applies [facility] mg/dL to non-numeric (Ammir results) Lucila Physician) LDL-CHOLESTEROL 38 mg/dL Normal (applies [facility] (calc) to non-numeric (Ammir results) Lucila Physician) CHOL/HDLC RATIO 2.1 Normal (applies [facility] (calc) to non-numeric (Ammir results) Lucila Physician) NON HDL 57 mg/dL Normal (applies [facility] CHOLESTEROL (calc) to non-numeric (Ammir results) Lucila Physician) ID Date Data Source [id number] 10/23/2019 12:00:00 AM EDT [facility] (Ammir Lucila Physician) Name Value Range Interpretation Description Data Sup porting Code Source(s) Document(s ) Hemoglobin A1c 6.5 % of Above high normal [facility] in Blood total Hgb (Ammir Lucila Physician) ID Date Data Source [id number] 10/23/2019 12:00:00 AM EDT [facility] (Ammir Lucila Physician) Name Value Range Interpretation Description Data Sup porting Code Source(s) Document(s ) VITAMIN D, 14 ng/mL Below low normal [facility] (Ammi r 25-OH, TOTAL Lucila Physician) VITAMIN D, 7 ng/mL Normal (applies to [facility] (Am brooks 25-OH, D3 non-numeric Lucila results) Physician) VITAMIN D, 7 ng/mL Normal (applies to [facility] (Am brooks 25-OH, D2 non-numeric Lucila results) Physician) ID Date Data Source [id number] 10/23/2019 12:00:00 AM EDT [facility] (Ammir Lucila Physician) Name Value Range Interpretation Description Data Sup porting Code Source(s) Document(s ) PSA, 0.3 ng/mL Normal (applies to [facility] (Amm ir TOTAL non-numeric Lucila results) Physician) PSA, FREE <0.1 Normal (applies to [facility] (Amm ir non-numeric Lucila results) Physician) PSA, % UNABLE TO Normal (applies to [facility] (Amm ir FREE CALCULATE non-numeric Lucila results) Physician) ID Date Data Source [id number] 10/23/2019 12:00:00 AM EDT [facility] (Ammir Lucila Physician) Name Value Range Interpretation Description Data Sup porting Code Source(s) Document(s ) VITAMIN B12 383 pg/mL Normal (applies to [facility] (A mmir non-numeric Lucila results) Physician) FOLATE, 7.7 ng/mL Normal (applies to [facility] (Amm ir SERUM non-numeric Lucila results) Physician) ID Date Data Source [id number] 10/23/2019 12:00:00 AM EDT [facility] (Ammir Lucila Physician) Name Value Range Interpretation Code Description Data Salome rce(s) Supporting Document(s ) TSH 1.86 mIU/L Normal (applies to [facility] (Am brooks W/REFLEX non-numeric Lucila TO FT4 results) Physician) ID Date Data Source [id number] 10/23/2019 12:00:00 AM EDT [facility] (Ammir Lucila Physician) Name Value Range Interpretation Code Description Data Salome rce(s) Supporting Document(s ) SARS CoV POSITIVE Abnormal (applies [facility] (Ammi r 2 AB IGG to non-numeric Lucila results) Physician) ID Date Data Source [id number] 10/23/2019 12:00:00 AM EDT [facility] (Ammir Lucila Physician) Name Value Range Interpretation Description Data Sup porting Code Source(s) Document(s ) Structure of 8.6 Normal (applies to [facility] plantar Thousand/ non-numeric (Ammir digital artery uL results) Lucila (body Physician) structure) RED BLOOD CELL 4.21 Normal (applies to [facility] COUNT Million/u non-numeric (Ammir L results) Lucila Physician) Hemoglobin 12.2 g/dL Below low normal [facility] [Mass/volume] (Ammir in Mixed Lucila venous blood Physician) by Oximetry Hematocrit 36.3 % Below low normal [facility] [Pure volume (Ammir fraction] of Lucila Blood by Physician) Automated count MCV 86.2 fL Normal (applies to [facility] non-numeric (Ammir results) Lucila Physician) MCH 29.0 pg Normal (applies to [facility] non-numeric (Ammir results) Lucila Physician) MCHC 33.6 g/dL Normal (applies to [facility] non-numeric (Ammir results) Lucila Physician) RDW 13.4 % Normal (applies to [facility] non-numeric (Ammir results) Lucila Physician) PLATELET COUNT 444 Above high normal [facility] Thousand/ (Ammir uL Lucila Physician) MPV 10.7 fL Normal (applies to [facility] non-numeric (Ammir results) Lucila Physician) ID Date Data Source [id number] 10/23/2019 12:00:00 AM EDT [facility] (Ammir Lucila Physician) Name Value Range Interpretation Description Data Sup porting Code Source(s) Document(s ) Glucose 113 mg/dL Above high [facility] [Mass/volume] normal (Ammir in Urine Lucila collected for Physician) unspecified duration UREA NITROGEN 15 mg/dL Normal (applies [facility] (BUN) to non-numeric (Ammir results) Lucila Physician) Creatinine 0.85 mg/dL Normal (applies [facility] [Interpretation to non-numeric (Ammir ] in Urine results) Lucila Physician) eGFR NON-AFR. 85 Normal (applies [facility] MALDIVIAN mL/min/1.73m to non-numeric (Ammir 2 results) Lucila Physician) eGFR 98 Normal (applies [facility] MALDIVIAN mL/min/1.73m to non-numeric (Ammir 2 results) Lucila Physician) BUN/CREATININE NOT Normal (applies [facility] RATIO APPLICABLE to non-numeric (Ammir results) Lucila Physician) Sodium 142 mmol/L Normal (applies [facility] [Moles/volume] to non-numeric (Ammir in Serum, results) Lucila Plasma or Blood Physician) Potassium 4.3 mmol/L Normal (applies [facility] [Mass/volume] to non-numeric (Ammir in Blood results) Lucila Physician) Chloride 105 mmol/L Normal (applies [facility] [Moles/volume] to non-numeric (Ammir in Serum, results) Lucila Plasma or Blood Physician) Carbon dioxide 25 mmol/L Normal (applies [facility] [VFr/PPres] in to non-numeric (Ammir Gas delivery results) Lucila system Physician) Calcium 10.5 mg/dL Above high [facility] [Moles/volume] normal (Ammir in Urine Lucila collected for Physician) unspecified duration PROTEIN, TOTAL 7.1 g/dL Normal (applies [facility] to non-numeric (Ammir results) Lucila Physician) Microalbumin 3.6 g/dL Normal (applies [facility] [Mass/time] in to non-numeric (Ammir Urine collected results) Lucila for unspecified Physician) duration Globulin 3.5 g/dL Normal (applies [facility] [Mass/time] in (calc) to non-numeric (Ammir 24 hour Urine results) Lucila Physician) ALBUMIN/GLOBULI 1.0 (calc) Normal (applies [facility] N RATIO to non-numeric (Ammir results) Lucila Physician) BILIRUBIN, 0.4 mg/dL Normal (applies [facility] TOTAL to non-numeric (Ammir results) Lucila Physician) Alkaline 52 U/L Normal (applies [facility] phosphatase to non-numeric (Ammir [Enzymatic results) Lucila activity/volume Physician) ] in Serum, Plasma or Blood AST 15 U/L Normal (applies [facility] to non-numeric (Ammir results) Lucila Physician) ALT 12 U/L Normal (applies [facility] to non-numeric (Ammir results) Lucila Physician) ID Date Data Source [id number] 10/23/2019 12:00:00 AM EDT [facility] (Ammir Lucila Physician) Name Value Range Interpretation Description Data Sup porting Code Source(s) Document(s ) CHOLESTEROL, 107 Normal (applies [facility] TOTAL mg/dL to non-numeric (Ammir results) Lucila Physician) HDL CHOLESTEROL 50 mg/dL Normal (applies [facility] to non-numeric (Ammir results) Lucila Physician) TRIGLYCERIDES 102 Normal (applies [facility] mg/dL to non-numeric (Ammir results) Lucila Physician) LDL-CHOLESTEROL 38 mg/dL Normal (applies [facility] (calc) to non-numeric (Ammir results) Lucila Physician) CHOL/HDLC RATIO 2.1 Normal (applies [facility] (calc) to non-numeric (Ammir results) Lucila Physician) NON HDL 57 mg/dL Normal (applies [facility] CHOLESTEROL (calc) to non-numeric (Ammir results) Lucila Physician) ID Date Data Source [id number] 10/23/2019 12:00:00 AM EDT [facility] (Ammir Lucila Physician) Name Value Range Interpretation Description Data Sup porting Code Source(s) Document(s ) Hemoglobin A1c 6.5 % of Above high normal [facility] in Blood total Hgb (Ammir Lucila Physician) ID Date Data Source [id number] 10/23/2019 12:00:00 AM EDT [facility] (Ammir Lucila Physician) Name Value Range Interpretation Description Data Sup porting Code Source(s) Document(s ) VITAMIN D, 7 ng/mL Normal (applies to [facility] (Am brooks 25-OH, D3 non-numeric Lucila results) Physician) VITAMIN D, 14 ng/mL Below low normal [facility] (Ammi r 25-OH, TOTAL Lucila Physician) VITAMIN D, 7 ng/mL Normal (applies to [facility] (Am brooks 25-OH, D2 non-numeric Lucila results) Physician) ID Date Data Source [id number] 10/23/2019 12:00:00 AM EDT [facility] (Ammir Lucila Physician) Name Value Range Interpretation Description Data Sup porting Code Source(s) Document(s ) PSA, 0.3 ng/mL Normal (applies to [facility] (Amm ir TOTAL non-numeric Lucila results) Physician) PSA, FREE <0.1 Normal (applies to [facility] (Amm ir non-numeric Lucila results) Physician) PSA, % UNABLE TO Normal (applies to [facility] (Amm ir FREE CALCULATE non-numeric Lucila results) Physician) ID Date Data Source [id number] 10/23/2019 12:00:00 AM EDT [facility] (Ammir Lucila Physician) Name Value Range Interpretation Description Data Sup porting Code Source(s) Document(s ) VITAMIN B12 383 pg/mL Normal (applies to [facility] (A mmir non-numeric Lucila results) Physician) FOLATE, 7.7 ng/mL Normal (applies to [facility] (Amm ir SERUM non-numeric Lucila results) Physician) ID Date Data Source [id number] 10/23/2019 12:00:00 AM EDT [facility] (Ammir Lucila Physician) Name Value Range Interpretation Code Description Data Salome rce(s) Supporting Document(s ) TSH 1.86 mIU/L Normal (applies to [facility] (Am brooks W/REFLEX non-numeric Lucila TO FT4 results) Physician) ID Date Data Source [id number] 10/23/2019 12:00:00 AM EDT [facility] (Ammir Lucila Physician) Name Value Range Interpretation Description Data Sup porting Code Source(s) Document(s ) Glucose 113 mg/dL Above high [facility] [Mass/volume] normal (Ammir in Urine Lucila collected for Physician) unspecified duration Creatinine 0.85 mg/dL Normal (applies [facility] [Interpretation to non-numeric (Ammir ] in Urine results) Lucila Physician) UREA NITROGEN 15 mg/dL Normal (applies [facility] (BUN) to non-numeric (Ammir results) Lucila Physician) eGFR NON-AFR. 85 Normal (applies [facility] MALDIVIAN mL/min/1.73m to non-numeric (Ammir 2 results) Lucila Physician) eGFR 98 Normal (applies [facility] MALDIVIAN mL/min/1.73m to non-numeric (Ammir 2 results) Lucila Physician) BUN/CREATININE NOT Normal (applies [facility] RATIO APPLICABLE to non-numeric (Ammir results) Lucila Physician) Sodium 142 mmol/L Normal (applies [facility] [Moles/volume] to non-numeric (Ammir in Serum, results) Lucila Plasma or Blood Physician) Potassium 4.3 mmol/L Normal (applies [facility] [Mass/volume] to non-numeric (Ammir in Blood results) Lucila Physician) Chloride 105 mmol/L Normal (applies [facility] [Moles/volume] to non-numeric (Ammir in Serum, results) Lucila Plasma or Blood Physician) Carbon dioxide 25 mmol/L Normal (applies [facility] [VFr/PPres] in to non-numeric (Ammir Gas delivery results) Lucila system Physician) Calcium 10.5 mg/dL Above high [facility] [Moles/volume] normal (Ammir in Urine Lucila collected for Physician) unspecified duration PROTEIN, TOTAL 7.1 g/dL Normal (applies [facility] to non-numeric (Ammir results) Lucila Physician) Microalbumin 3.6 g/dL Normal (applies [facility] [Mass/time] in to non-numeric (Ammir Urine collected results) Lucila for unspecified Physician) duration Globulin 3.5 g/dL Normal (applies [facility] [Mass/time] in (calc) to non-numeric (Ammir 24 hour Urine results) Lucila Physician) ALBUMIN/GLOBULI 1.0 (calc) Normal (applies [facility] N RATIO to non-numeric (Ammir results) Lucila Physician) BILIRUBIN, 0.4 mg/dL Normal (applies [facility] TOTAL to non-numeric (Ammir results) Lucila Physician) Alkaline 52 U/L Normal (applies [facility] phosphatase to non-numeric (Ammir [Enzymatic results) Lucila activity/volume Physician) ] in Serum, Plasma or Blood AST 15 U/L Normal (applies [facility] to non-numeric (Ammir results) Lucila Physician) ALT 12 U/L Normal (applies [facility] to non-numeric (Ammir results) Lucila Physician) ID Date Data Source [id number] 10/23/2019 12:00:00 AM EDT [facility] (Ammir Lucila Physician) Name Value Range Interpretation Description Data Sup porting Code Source(s) Document(s ) CHOLESTEROL, 107 Normal (applies [facility] TOTAL mg/dL to non-numeric (Ammir results) Lucila Physician) HDL CHOLESTEROL 50 mg/dL Normal (applies [facility] to non-numeric (Ammir results) Lucila Physician) TRIGLYCERIDES 102 Normal (applies [facility] mg/dL to non-numeric (Ammir results) Lucila Physician) LDL-CHOLESTEROL 38 mg/dL Normal (applies [facility] (calc) to non-numeric (Ammir results) Lucila Physician) NON HDL 57 mg/dL Normal (applies [facility] CHOLESTEROL (calc) to non-numeric (Ammir results) Lucila Physician) CHOL/HDLC RATIO 2.1 Normal (applies [facility] (calc) to non-numeric (Ammir results) Lucila Physician) ID Date Data Source [id number] 10/23/2019 12:00:00 AM EDT [facility] (Ammir Lucila Physician) Name Value Range Interpretation Description Data Sup porting Code Source(s) Document(s ) Hemoglobin A1c 6.5 % of Above high normal [facility] in Blood total Hgb (Ammir Lucila Physician) ID Date Data Source [id number] 10/23/2019 12:00:00 AM EDT [facility] (Ammir Lucila Physician) Name Value Range Interpretation Description Data Sup porting Code Source(s) Document(s ) VITAMIN D, 14 ng/mL Below low normal [facility] (Ammi r 25-OH, TOTAL Lucila Physician) VITAMIN D, 7 ng/mL Normal (applies to [facility] (Am brooks 25-OH, D3 non-numeric Lucila results) Physician) VITAMIN D, 7 ng/mL Normal (applies to [facility] (Am brooks 25-OH, D2 non-numeric Lucila results) Physician) ID Date Data Source [id number] 10/23/2019 12:00:00 AM EDT [facility] (Ammir Lucila Physician) Name Value Range Interpretation Description Data Sup porting Code Source(s) Document(s ) PSA, 0.3 ng/mL Normal (applies to [facility] (Amm ir TOTAL non-numeric Lucila results) Physician) PSA, FREE <0.1 Normal (applies to [facility] (Amm ir non-numeric Lucila results) Physician) PSA, % UNABLE TO Normal (applies to [facility] (Amm ir FREE CALCULATE non-numeric Lucila results) Physician) ID Date Data Source [id number] 10/23/2019 12:00:00 AM EDT [facility] (Ammir Lucila Physician) Name Value Range Interpretation Description Data Sup porting Code Source(s) Document(s ) VITAMIN B12 383 pg/mL Normal (applies to [facility] (A mmir non-numeric Lucila results) Physician) FOLATE, 7.7 ng/mL Normal (applies to [facility] (Amm ir SERUM non-numeric Lucila results) Physician) ID Date Data Source [id number] 10/23/2019 12:00:00 AM EDT [facility] (Ammir Lucila Physician) Name Value Range Interpretation Code Description Data Salome rce(s) Supporting Document(s ) TSH 1.86 mIU/L Normal (applies to [facility] (Am brooks W/REFLEX non-numeric Lucila TO FT4 results) Physician) ID Date Data Source [id number] 10/23/2019 12:00:00 AM EDT [facility] (Ammir Lucila Physician) Name Value Range Interpretation Code Description Data Salome rce(s) Supporting Document(s ) SARS CoV POSITIVE Abnormal (applies [facility] (Ammi r 2 AB IGG to non-numeric Lucila results) Physician) ID Date Data Source [id number] 10/23/2019 12:00:00 AM EDT [facility] (Ammir Lucila Physician) Name Value Range Interpretation Description Data Sup porting Code Source(s) Document(s ) Structure of 8.6 Normal (applies to [facility] plantar Thousand/ non-numeric (Ammir digital artery uL results) Lucila (body Physician) structure) RED BLOOD CELL 4.21 Normal (applies to [facility] COUNT Million/u non-numeric (Ammir L results) Lucila Physician) Hemoglobin 12.2 g/dL Below low normal [facility] [Mass/volume] (Ammir in Mixed Lucila venous blood Physician) by Oximetry Hematocrit 36.3 % Below low normal [facility] [Pure volume (Ammir fraction] of Lucila Blood by Physician) Automated count MCV 86.2 fL Normal (applies to [facility] non-numeric (Ammir results) Lucila Physician) MCH 29.0 pg Normal (applies to [facility] non-numeric (Ammir results) Lucila Physician) MCHC 33.6 g/dL Normal (applies to [facility] non-numeric (Ammir results) Lucila Physician) RDW 13.4 % Normal (applies to [facility] non-numeric (Ammir results) Lucila Physician) PLATELET COUNT 444 Above high normal [facility] Thousand/ (Ammir uL Lucila Physician) MPV 10.7 fL Normal (applies to [facility] non-numeric (Ammir results) Lucila Physician) ID Date Data Source [id number] 10/23/2019 12:00:00 AM EDT [facility] (Ammir Lucila Physician) Name Value Range Interpretation Description Data Sup porting Code Source(s) Document(s ) Glucose 113 mg/dL Above high [facility] [Mass/volume] normal (Ammir in Urine Lucila collected for Physician) unspecified duration UREA NITROGEN 15 mg/dL Normal (applies [facility] (BUN) to non-numeric (Ammir results) Lucila Physician) Creatinine 0.85 mg/dL Normal (applies [facility] [Interpretation to non-numeric (Ammir ] in Urine results) Lucila Physician) eGFR NON-AFR. 85 Normal (applies [facility] MALDIVIAN mL/min/1.73m to non-numeric (Ammir 2 results) Lucila Physician) eGFR 98 Normal (applies [facility] MALDIVIAN mL/min/1.73m to non-numeric (Ammir 2 results) Lucila Physician) Sodium 142 mmol/L Normal (applies [facility] [Moles/volume] to non-numeric (Ammir in Serum, results) Lucila Plasma or Blood Physician) BUN/CREATININE NOT Normal (applies [facility] RATIO APPLICABLE to non-numeric (Ammir results) Lucila Physician) Potassium 4.3 mmol/L Normal (applies [facility] [Mass/volume] to non-numeric (Ammir in Blood results) Lucila Physician) Chloride 105 mmol/L Normal (applies [facility] [Moles/volume] to non-numeric (Ammir in Serum, results) Lucila Plasma or Blood Physician) Carbon dioxide 25 mmol/L Normal (applies [facility] [VFr/PPres] in to non-numeric (Ammir Gas delivery results) Lucila system Physician) Calcium 10.5 mg/dL Above high [facility] [Moles/volume] normal (Ammir in Urine Lucila collected for Physician) unspecified duration PROTEIN, TOTAL 7.1 g/dL Normal (applies [facility] to non-numeric (Ammir results) Lucila Physician) Microalbumin 3.6 g/dL Normal (applies [facility] [Mass/time] in to non-numeric (Ammir Urine collected results) Lucila for unspecified Physician) duration Globulin 3.5 g/dL Normal (applies [facility] [Mass/time] in (calc) to non-numeric (Ammir 24 hour Urine results) Lucila Physician) ALBUMIN/GLOBULI 1.0 (calc) Normal (applies [facility] N RATIO to non-numeric (Ammir results) Lucila Physician) BILIRUBIN, 0.4 mg/dL Normal (applies [facility] TOTAL to non-numeric (Ammir results) Lucila Physician) Alkaline 52 U/L Normal (applies [facility] phosphatase to non-numeric (Ammir [Enzymatic results) Lucila activity/volume Physician) ] in Serum, Plasma or Blood AST 15 U/L Normal (applies [facility] to non-numeric (Ammir results) Lucila Physician) ALT 12 U/L Normal (applies [facility] to non-numeric (Ammir results) Lucila Physician) ID Date Data Source [id number] 10/23/2019 12:00:00 AM EDT [facility] (Ammir Lucila Physician) Name Value Range Interpretation Description Data Sup porting Code Source(s) Document(s ) HDL CHOLESTEROL 50 mg/dL Normal (applies [facility] to non-numeric (Ammir results) Lucila Physician) CHOLESTEROL, 107 Normal (applies [facility] TOTAL mg/dL to non-numeric (Ammir results) Lucila Physician) TRIGLYCERIDES 102 Normal (applies [facility] mg/dL to non-numeric (Ammir results) Lucila Physician) LDL-CHOLESTEROL 38 mg/dL Normal (applies [facility] (calc) to non-numeric (Ammir results) Lucila Physician) CHOL/HDLC RATIO 2.1 Normal (applies [facility] (calc) to non-numeric (Ammir results) Lucila Physician) NON HDL 57 mg/dL Normal (applies [facility] CHOLESTEROL (calc) to non-numeric (Ammir results) Lucila Physician) ID Date Data Source [id number] 10/23/2019 12:00:00 AM EDT [facility] (Ammir Lucila Physician) Name Value Range Interpretation Description Data Sup porting Code Source(s) Document(s ) Hemoglobin A1c 6.5 % of Above high normal [facility] in Blood total Hgb (Ammir Lucila Physician) ID Date Data Source [id number] 10/23/2019 12:00:00 AM EDT [facility] (Ammir Lucila Physician) Name Value Range Interpretation Description Data Sup porting Code Source(s) Document(s ) VITAMIN D, 14 ng/mL Below low normal [facility] (Ammi r 25-OH, TOTAL Lucila Physician) VITAMIN D, 7 ng/mL Normal (applies to [facility] (Am brooks 25-OH, D3 non-numeric Lucila results) Physician) VITAMIN D, 7 ng/mL Normal (applies to [facility] (Am brooks 25-OH, D2 non-numeric Lucila results) Physician) ID Date Data Source [id number] 10/23/2019 12:00:00 AM EDT [facility] (Ammir Lucila Physician) Name Value Range Interpretation Description Data Sup porting Code Source(s) Document(s ) PSA, 0.3 ng/mL Normal (applies to [facility] (Amm ir TOTAL non-numeric Lucila results) Physician) PSA, FREE <0.1 Normal (applies to [facility] (Amm ir non-numeric Lucila results) Physician) PSA, % UNABLE TO Normal (applies to [facility] (Amm ir FREE CALCULATE non-numeric Lucila results) Physician) ID Date Data Source [id number] 10/23/2019 12:00:00 AM EDT [facility] (Ammir Lucila Physician) Name Value Range Interpretation Description Data Sup porting Code Source(s) Document(s ) VITAMIN B12 383 pg/mL Normal (applies to [facility] (A mmir non-numeric Lucila results) Physician) FOLATE, 7.7 ng/mL Normal (applies to [facility] (Amm ir SERUM non-numeric Lucila results) Physician) ID Date Data Source [id number] 10/23/2019 12:00:00 AM EDT [facility] (Ammir Lucila Physician) Name Value Range Interpretation Code Description Data Salome rce(s) Supporting Document(s ) TSH 1.86 mIU/L Normal (applies to [facility] (Am brooks W/REFLEX non-numeric Lucila TO FT4 results) Physician) ID Date Data Source [id number] 10/23/2019 12:00:00 AM EDT [facility] (Ammir Lucila Physician) Name Value Range Interpretation Code Description Data Salome rce(s) Supporting Document(s ) SARS CoV POSITIVE Abnormal (applies [facility] (Ammi r 2 AB IGG to non-numeric Lucila results) Physician) ID Date Data Source [id number] 10/23/2019 12:00:00 AM EDT [facility] (Ammir Lucila Physician) Name Value Range Interpretation Description Data Sup porting Code Source(s) Document(s ) Structure of 8.6 Normal (applies to [facility] plantar Thousand/ non-numeric (Ammir digital artery uL results) Lucila (body Physician) structure) RED BLOOD CELL 4.21 Normal (applies to [facility] COUNT Million/u non-numeric (Ammir L results) Lucila Physician) Hemoglobin 12.2 g/dL Below low normal [facility] [Mass/volume] (Ammir in Mixed Lucila venous blood Physician) by Oximetry Hematocrit 36.3 % Below low normal [facility] [Pure volume (Ammir fraction] of Lucila Blood by Physician) Automated count MCV 86.2 fL Normal (applies to [facility] non-numeric (Ammir results) Lucila Physician) MCH 29.0 pg Normal (applies to [facility] non-numeric (Ammir results) Lucila Physician) RDW 13.4 % Normal (applies to [facility] non-numeric (Ammir results) Lucila Physician) MCHC 33.6 g/dL Normal (applies to [facility] non-numeric (Ammir results) Lucila Physician) PLATELET COUNT 444 Above high normal [facility] Thousand/ (Ammir uL Lucila Physician) MPV 10.7 fL Normal (applies to [facility] non-numeric (Ammir results) Lucila Physician) ID Date Data Source [id number] 10/23/2019 12:00:00 AM EDT [facility] (Ammir Lucila Physician) Name Value Range Interpretation Description Data Sup porting Code Source(s) Document(s ) Glucose 113 mg/dL Above high [facility] [Mass/volume] normal (Ammir in Urine Lucila collected for Physician) unspecified duration UREA NITROGEN 15 mg/dL Normal (applies [facility] (BUN) to non-numeric (Ammir results) Lucila Physician) Creatinine 0.85 mg/dL Normal (applies [facility] [Interpretation to non-numeric (Ammir ] in Urine results) Lucila Physician) eGFR NON-AFR. 85 Normal (applies [facility] MALDIVIAN mL/min/1.73m to non-numeric (Ammir 2 results) Lucila Physician) eGFR 98 Normal (applies [facility] MALDIVIAN mL/min/1.73m to non-numeric (Ammir 2 results) Lcuila Physician) BUN/CREATININE NOT Normal (applies [facility] RATIO APPLICABLE to non-numeric (Ammir results) Lucila Physician) Sodium 142 mmol/L Normal (applies [facility] [Moles/volume] to non-numeric (Ammir in Serum, results) Lucila Plasma or Blood Physician) Potassium 4.3 mmol/L Normal (applies [facility] [Mass/volume] to non-numeric (Ammir in Blood results) Lucila Physician) Chloride 105 mmol/L Normal (applies [facility] [Moles/volume] to non-numeric (Ammir in Serum, results) Lucila Plasma or Blood Physician) Carbon dioxide 25 mmol/L Normal (applies [facility] [VFr/PPres] in to non-numeric (Ammir Gas delivery results) Lucila system Physician) Calcium 10.5 mg/dL Above high [facility] [Moles/volume] normal (Ammir in Urine Lucila collected for Physician) unspecified duration PROTEIN, TOTAL 7.1 g/dL Normal (applies [facility] to non-numeric (Ammir results) Lucila Physician) Microalbumin 3.6 g/dL Normal (applies [facility] [Mass/time] in to non-numeric (Ammir Urine collected results) Lucila for unspecified Physician) duration Globulin 3.5 g/dL Normal (applies [facility] [Mass/time] in (calc) to non-numeric (Ammir 24 hour Urine results) Lucila Physician) ALBUMIN/GLOBULI 1.0 (calc) Normal (applies [facility] N RATIO to non-numeric (Ammir results) Lucila Physician) BILIRUBIN, 0.4 mg/dL Normal (applies [facility] TOTAL to non-numeric (Ammir results) Lucila Physician) Alkaline 52 U/L Normal (applies [facility] phosphatase to non-numeric (Ammir [Enzymatic results) Lucila activity/volume Physician) ] in Serum, Plasma or Blood AST 15 U/L Normal (applies [facility] to non-numeric (Ammir results) Lucila Physician) ALT 12 U/L Normal (applies [facility] to non-numeric (Ammir results) Lucila Physician) ID Date Data Source [id number] 10/23/2019 12:00:00 AM EDT [facility] (Ammir Lucila Physician) Name Value Range Interpretation Description Data Sup porting Code Source(s) Document(s ) Hemoglobin A1c 6.5 % of Above high normal [facility] in Blood total Hgb (Ammir Lucila Physician) ID Date Data Source [id number] 10/23/2019 12:00:00 AM EDT [facility] (Ammir Lucila Physician) Name Value Range Interpretation Description Data Sup porting Code Source(s) Document(s ) VITAMIN D, 14 ng/mL Below low normal [facility] (Ammi r 25-OH, TOTAL Lucila Physician) VITAMIN D, 7 ng/mL Normal (applies to [facility] (Am brooks 25-OH, D3 non-numeric Lucila results) Physician) VITAMIN D, 7 ng/mL Normal (applies to [facility] (Am brooks 25-OH, D2 non-numeric Lucila results) Physician) ID Date Data Source [id number] 10/23/2019 12:00:00 AM EDT [facility] (Ammir Lucila Physician) Name Value Range Interpretation Description Data Sup porting Code Source(s) Document(s ) PSA, 0.3 ng/mL Normal (applies to [facility] (Amm ir TOTAL non-numeric Lucila results) Physician) PSA, FREE <0.1 Normal (applies to [facility] (Amm ir non-numeric Lucila results) Physician) PSA, % UNABLE TO Normal (applies to [facility] (Amm ir FREE CALCULATE non-numeric Lucila results) Physician) ID Date Data Source [id number] 10/23/2019 12:00:00 AM EDT [facility] (Ammir Lucila Physician) Name Value Range Interpretation Description Data Sup porting Code Source(s) Document(s ) VITAMIN B12 383 pg/mL Normal (applies to [facility] (A mmir non-numeric Lucila results) Physician) FOLATE, 7.7 ng/mL Normal (applies to [facility] (Amm ir SERUM non-numeric Lucila results) Physician) ID Date Data Source [id number] 10/23/2019 12:00:00 AM EDT [facility] (Ammir Lucila Physician) Name Value Range Interpretation Code Description Data Salome rce(s) Supporting Document(s ) TSH 1.86 mIU/L Normal (applies to [facility] (Am brooks W/REFLEX non-numeric Lucila TO FT4 results) Physician) ID Date Data Source [id number] 10/23/2019 12:00:00 AM EDT [facility] (Ammir Lucila Physician) Name Value Range Interpretation Code Description Data Salome rce(s) Supporting Document(s ) SARS CoV POSITIVE Abnormal (applies [facility] (Ammi r 2 AB IGG to non-numeric Lucila results) Physician) ID Date Data Source [id number] 10/23/2019 12:00:00 AM EDT [facility] (Ammir Lucila Physician) Name Value Range Interpretation Description Data Sup porting Code Source(s) Document(s ) Structure of 8.6 Normal (applies to [facility] plantar Thousand/ non-numeric (Ammir digital artery uL results) Lucila (body Physician) structure) RED BLOOD CELL 4.21 Normal (applies to [facility] COUNT Million/u non-numeric (Ammir L results) Lucila Physician) Hemoglobin 12.2 g/dL Below low normal [facility] [Mass/volume] (Ammir in Mixed Lucila venous blood Physician) by Oximetry Hematocrit 36.3 % Below low normal [facility] [Pure volume (Ammir fraction] of Lucila Blood by Physician) Automated count MCV 86.2 fL Normal (applies to [facility] non-numeric (Ammir results) Lucila Physician) MCHC 33.6 g/dL Normal (applies to [facility] non-numeric (Ammir results) Lucila Physician) MCH 29.0 pg Normal (applies to [facility] non-numeric (Ammir results) Lucila Physician) RDW 13.4 % Normal (applies to [facility] non-numeric (Ammir results) Lucila Physician) PLATELET COUNT 444 Above high normal [facility] Thousand/ (Ammir uL Lucila Physician) MPV 10.7 fL Normal (applies to [facility] non-numeric (Ammir results) Lucila Physician) ID Date Data Source [id number] 10/23/2019 12:00:00 AM EDT [facility] (Ammir Lucila Physician) Name Value Range Interpretation Description Data Sup porting Code Source(s) Document(s ) Glucose 113 mg/dL Above high [facility] [Mass/volume] normal (Ammir in Urine Lucila collected for Physician) unspecified duration UREA NITROGEN 15 mg/dL Normal (applies [facility] (BUN) to non-numeric (Ammir results) Lucila Physician) eGFR NON-AFR. 85 Normal (applies [facility] MALDIVIAN mL/min/1.73m to non-numeric (Ammir 2 results) Lucila Physician) Creatinine 0.85 mg/dL Normal (applies [facility] [Interpretation to non-numeric (Ammir ] in Urine results) Lucila Physician) eGFR 98 Normal (applies [facility] MALDIVIAN mL/min/1.73m to non-numeric (Ammir 2 results) Lucila Physician) BUN/CREATININE NOT Normal (applies [facility] RATIO APPLICABLE to non-numeric (Ammir results) Lucila Physician) Sodium 142 mmol/L Normal (applies [facility] [Moles/volume] to non-numeric (Ammir in Serum, results) Lucila Plasma or Blood Physician) Potassium 4.3 mmol/L Normal (applies [facility] [Mass/volume] to non-numeric (Ammir in Blood results) Lucila Physician) Chloride 105 mmol/L Normal (applies [facility] [Moles/volume] to non-numeric (Ammir in Serum, results) Lucila Plasma or Blood Physician) Carbon dioxide 25 mmol/L Normal (applies [facility] [VFr/PPres] in to non-numeric (Ammir Gas delivery results) Lucila system Physician) Calcium 10.5 mg/dL Above high [facility] [Moles/volume] normal (Ammir in Urine Lucila collected for Physician) unspecified duration Microalbumin 3.6 g/dL Normal (applies [facility] [Mass/time] in to non-numeric (Ammir Urine collected results) Lucila for unspecified Physician) duration PROTEIN, TOTAL 7.1 g/dL Normal (applies [facility] to non-numeric (Ammir results) Lucila Physician) Globulin 3.5 g/dL Normal (applies [facility] [Mass/time] in (calc) to non-numeric (Ammir 24 hour Urine results) Lucila Physician) ALBUMIN/GLOBULI 1.0 (calc) Normal (applies [facility] N RATIO to non-numeric (Ammir results) Lucila Physician) BILIRUBIN, 0.4 mg/dL Normal (applies [facility] TOTAL to non-numeric (Ammir results) Lucila Physician) Alkaline 52 U/L Normal (applies [facility] phosphatase to non-numeric (Ammir [Enzymatic results) Lucila activity/volume Physician) ] in Serum, Plasma or Blood AST 15 U/L Normal (applies [facility] to non-numeric (Ammir results) Lucila Physician) ALT 12 U/L Normal (applies [facility] to non-numeric (Ammir results) Lucila Physician) ID Date Data Source [id number] 10/23/2019 12:00:00 AM EDT [facility] (Ammir Lucila Physician) Name Value Range Interpretation Description Data Sup porting Code Source(s) Document(s ) CHOLESTEROL, 107 Normal (applies [facility] TOTAL mg/dL to non-numeric (Ammir results) Lucila Physician) HDL CHOLESTEROL 50 mg/dL Normal (applies [facility] to non-numeric (Ammir results) Lucila Physician) TRIGLYCERIDES 102 Normal (applies [facility] mg/dL to non-numeric (Ammir results) Lucila Physician) LDL-CHOLESTEROL 38 mg/dL Normal (applies [facility] (calc) to non-numeric (Ammir results) Lucila Physician) CHOL/HDLC RATIO 2.1 Normal (applies [facility] (calc) to non-numeric (Ammir results) Lucila Physician) NON HDL 57 mg/dL Normal (applies [facility] CHOLESTEROL (calc) to non-numeric (Ammir results) Lucila Physician) ID Date Data Source [id number] 10/05/2019 11:48:00 AM EDT [facility] Name Value Range Interpretation Code Description Data Salome rce(s) Supporting Document(s ) SARS-CoV-2 [facility] , RNA This lab was ordered by [facility] and reported by [facility]. ID Date Data Source [id number] 10/02/2019 03:00:00 PM EDT [facility] Name Value Range Interpretation Description Data Sup porting Code Source(s) Document(s ) SARS [facility] CORONAVIRUS 2 RNA This lab was ordered by [facility] and reported by [facility]. ID Date Data Source [id number] 09/29/2019 08:38:00 AM EDT [facility] Name Value Range Interpretation Description Data Sup porting Code Source(s) Document(s ) SARS [facility] CORONAVIRUS 2 RNA This lab was ordered by [facility] and reported by [facility]. ID Date Data Source [id number] 09/25/2019 04:25:00 PM EDT [facility] Name Value Range Interpretation Description Data Sup porting Code Source(s) Document(s ) SARS [facility] CORONAVIRUS 2 RNA This lab was ordered by [facility] and reported by [facility]. ID Date Data Source [id number] 09/18/2019 08:25:00 PM EDT [facility] Name Value Range Interpretation Description Data Sup porting Code Source(s) Document(s ) SARS [facility] CORONAVIRUS 2 RNA This lab was ordered by [facility] and reported by [facility]. ID Date Data Source [id number] 04/30/2019 12:00:00 AM EST [facility] (Ammir Lucila Physician) Name Value Range Interpretation Description Data Sup porting Code Source(s) Document(s ) Sodium 142 Normal (applies [facility] [Moles/volume] mmol/L to non-numeric (Ammir in Serum, Plasma results) Lucila or Blood Physician) Potassium 4.5 Normal (applies [facility] [Mass/volume] in mmol/L to non-numeric (Ammir Blood results) Lucila Physician) Chloride 105 Normal (applies [facility] [Moles/volume] mmol/L to non-numeric (Ammir in Serum, Plasma results) Lucila or Blood Physician) Carbon dioxide 26 Normal (applies [facility] [VFr/PPres] in mmol/L to non-numeric (Ammir Gas delivery results) Lucila system Physician) Urea nitrogen 14 mg/dL Normal (applies [facility] [Moles/volume] to non-numeric (Ammir in Blood results) Lucila Physician) Creatinine 0.89 Normal (applies [facility] [Interpretation] mg/dL to non-numeric (Ammir in Urine results) Lucila Physician) BUN/CREATININE NOTE Normal (applies [facility] RATIO to non-numeric (Ammir results) Lucila Physician) Calcium 10.0 Normal (applies [facility] [Moles/volume] mg/dL to non-numeric (Ammir in Urine results) Lucila collected for Physician) unspecified duration PROTEIN, TOTAL 7.0 g/dL Normal (applies [facility] to non-numeric (Ammir results) Luclia Physician) Microalbumin 4.0 g/dL Normal (applies [facility] [Mass/time] in to non-numeric (Ammir Urine collected results) Lucila for unspecified Physician) duration Globulin 3.0 g/dL Normal (applies [facility] [Mass/time] in (calc) to non-numeric (Ammir 24 hour Urine results) Lucila Physician) ALBUMIN/GLOBULIN 1.3 Normal (applies [facility] RATIO (calc) to non-numeric (Ammir results) Lucila Physician) BILIRUBIN,TOTAL 0.5 Normal (applies [facility] mg/dL to non-numeric (Ammir results) Lucila Physician) Alkaline 74 U/L Normal (applies [facility] phosphatase to non-numeric (Ammir [Enzymatic results) Lucila activity/volume] Physician) in Serum, Plasma or Blood ALT 23 U/L Normal (applies [facility] to non-numeric (Ammir results) Lucila Physician) AST 20 U/L Normal (applies [facility] to non-numeric (Ammir results) Lucila Physician) EGFR NON AFR 84 Normal (applies [facility] MALDIVIAN mL/min/1 to non-numeric (Ammir .73m2 results) Lucila Physician) EGFR 97 Normal (applies [facility] MALDIVIAN mL/min/1 to non-numeric (Ammir .73m2 results) Lucila Physician) HISTOLOGY RESULT SEE Normal (applies [facility] NOTES to non-numeric (Ammir results) Lucila Physician) ID Date Data Source [id number] 04/30/2019 12:00:00 AM EST [facility] (Ammir Lucila Physician) Name Value Range Interpretation Description Data Sup porting Code Source(s) Document(s ) HISTOLOGY SEE NOTES Normal (applies to [facility] (Amm ir RESULT non-numeric Lucila results) Physician) ID Date Data Source [id number] 04/30/2019 12:00:00 AM EST [facility] (Ammir Lucila Physician) Name Value Range Interpretation Description Data Sup porting Code Source(s) Document(s ) HISTOLOGY SEE NOTES Normal (applies to [facility] (Amm ir RESULT non-numeric Lucila results) Physician) ID Date Data Source [id number] 04/30/2019 12:00:00 AM EST [facility] (Ammir Lucila Physician) Name Value Range Interpretation Description Data Sup porting Code Source(s) Document(s ) HISTOLOGY SEE NOTES Normal (applies to [facility] (Amm ir RESULT non-numeric Lucila results) Physician) ID Date Data Source [id number] 04/26/2019 12:00:00 AM EST [facility] (Ammir Lucila Physician) Name Value Range Interpretation Description Data Sup porting Code Source(s) Document(s ) ORGANISM Abnormal (applies [facility] to non-numeric (Ammir results) Lucila Physician) Comment Normal (applies [facility] [Interpretation] to non-numeric (Ammir Left eye Narrative results) Lucila Ophthalmometer Physician) ID Date Data Source [id number] 04/26/2019 12:00:00 AM EST [facility] (Ammir Lucila Physician) Name Value Range Interpretation Description Data Sup porting Code Source(s) Document(s ) ORGANISM Abnormal (applies [facility] to non-numeric (Ammir results) Lucila Physician) Comment Normal (applies [facility] [Interpretation] to non-numeric (Ammir Left eye Narrative results) Lucila Ophthalmometer Physician) ID Date Data Source [id number] 04/26/2019 12:00:00 AM EST [facility] (Ammir Lucila Physician) Name Value Range Interpretation Description Data Sup porting Code Source(s) Document(s ) HISTOLOGY SEE NOTES Normal (applies to [facility] (Amm ir RESULT non-numeric Lucila results) Physician) ID Date Data Source [id number] 04/26/2019 12:00:00 AM EST [facility] (Ammir Lucila Physician) Name Value Range Interpretation Description Data Sup porting Code Source(s) Document(s ) ORGANISM Abnormal (applies [facility] to non-numeric (Ammir results) Lucila Physician) Comment Normal (applies [facility] [Interpretation] to non-numeric (Ammir Left eye Narrative results) Lucila Ophthalmometer Physician) ID Date Data Source [id number] 04/26/2019 12:00:00 AM EST [facility] (Ammir Lucila Physician) Name Value Range Interpretation Description Data Sup porting Code Source(s) Document(s ) HISTOLOGY SEE NOTES Normal (applies to [facility] (Amm ir RESULT non-numeric Lucila results) Physician) ID Date Data Source [id number] 04/26/2019 12:00:00 AM EST [facility] (Ammir Lucila Physician) Name Value Range Interpretation Description Data Sup porting Code Source(s) Document(s ) ORGANISM Abnormal (applies [facility] to non-numeric (Ammir results) Lucila Physician) Comment Normal (applies [facility] [Interpretation] to non-numeric (Ammir Left eye Narrative results) Lucila Ophthalmometer Physician) ID Date Data Source [id number] 04/26/2019 12:00:00 AM EST [facility] (Ammir Lucila Physician) Name Value Range Interpretation Description Data Sup porting Code Source(s) Document(s ) HISTOLOGY SEE NOTES Normal (applies to [facility] (Amm ir RESULT non-numeric Lucila results) Physician) ID Date Data Source [id number] 04/26/2019 12:00:00 AM EST [facility] (Ammir Lucila Physician) Name Value Range Interpretation Description Data Sup porting Code Source(s) Document(s ) HISTOLOGY SEE NOTES Normal (applies to [facility] (Amm ir RESULT non-numeric Lucila results) Physician) ID Date Data Source [id number] 04/26/2019 12:00:00 AM EST [facility] (Ammir Lucila Physician) Name Value Range Interpretation Description Data Sup porting Code Source(s) Document(s ) ORGANISM Abnormal (applies [facility] to non-numeric (Ammir results) Lucila Physician) Comment Normal (applies [facility] [Interpretation] to non-numeric (Ammir Left eye Narrative results) Lucila Ophthalmometer Physician) ID Date Data Source [id number] 04/26/2019 12:00:00 AM EST [facility] (Ammir Lucila Physician) Name Value Range Interpretation Description Data Sup porting Code Source(s) Document(s ) HISTOLOGY SEE NOTES Normal (applies to [facility] (Amm ir RESULT non-numeric Lucila results) Physician) ID Date Data Source [id number] 03/15/2019 12:00:00 AM EDT [facility] (Ammir Lucila Physician) Name Value Range Interpretation Description Data Sup porting Code Source(s) Document(s ) RBC 4.6 Normal (applies [facility] 10(6)/uL to non-numeric (Ammir results) Lucila Physician) WBC 10.3 Normal (applies [facility] 10(3)/uL to non-numeric (Ammir results) Lucila Physician) Hemoglobin 13.2 g/dL Normal (applies [facility] [Mass/volume] to non-numeric (Ammir in Mixed venous results) Lucila blood by Physician) Oximetry Hematocrit 39.6 % Normal (applies [facility] [Pure volume to non-numeric (Ammir fraction] of results) Lucila Blood by Physician) Automated count MCV 85.9 fL Normal (applies [facility] to non-numeric (Ammir results) Lucila Physician) MCH 29 pg Normal (applies [facility] to non-numeric (Ammir results) Lucila Physician) MCHC 33 g/dL Normal (applies [facility] to non-numeric (Ammir results) Lucila Physician) RDWSD 37.8 fL Normal (applies [facility] to non-numeric (Ammir results) Lucila Physician) RDWCV 12.3 % Normal (applies [facility] to non-numeric (Ammir results) Lucila Physician) Platelet Count 354 Normal (applies [facility] 10(3)/uL to non-numeric (Ammir results) Lucila Physician) MPV 10.7 fL Normal (applies [facility] to non-numeric (Ammir results) Lucila Physician) Neutrophil Abs 6.79 Above high normal [facility] 10(3)/uL (Ammir Lucila Physician) Lymphocyte Abs 1.93 Normal (applies [facility] 10(3)/uL to non-numeric (Ammir results) Lucila Physician) Monocyte Abs 0.63 Normal (applies [facility] 10(3)/uL to non-numeric (Ammir results) Lucila Physician) Eosinophil Abs 0.90 Above high normal [facility] 10(3)/uL (Ammir Lucila Physician) Basophil Abs 0.02 Normal (applies [facility] 10(3)/uL to non-numeric (Ammir results) Lucila Physician) Immature 0.11 Above high normal [facility] Granulocyte Abs 10(3)/uL (Ammir Lucila Physician) Neutrophil % 66.10 % Normal (applies [facility] to non-numeric (Ammir results) Lucila Physician) Lymphocyte % 19 % Normal (applies [facility] to non-numeric (Ammir results) Lucila Physician) Monocyte % 6.1 % Normal (applies [facility] to non-numeric (Ammir results) Lucila Physician) Eosinophil % 8.8 % Above high normal [facility] (Ammir Lucila Physician) Basophil % 0.2 % Normal (applies [facility] to non-numeric (Ammir results) Lucila Physician) NRBC % 0.0 % Normal (applies [facility] to non-numeric (Ammir results) Lucila Physician) Immature 1.10 % Above high normal [facility] Granulocyte % (Ammir Lucila Physician) NRBC Abs 0.00 Normal (applies [facility] 10(3)/uL to non-numeric (Ammir results) Lucila Physician) ID Date Data Source [id number] 03/15/2019 12:00:00 AM EDT [facility] (Ammir Lucila Physician) Name Value Range Interpretation Description Data Sup porting Code Source(s) Document(s ) GLUCOSE 119 Normal (applies [facility] NONFASTING,SERUM mg/dL to non-numeric (Ammir results) Lucila Physician) SODIUM, SERUM 142 Normal (applies [facility] mEq/L to non-numeric (Ammir results) Lucila Physician) POTASSIUM, SERUM 4.8 Normal (applies [facility] mEq/L to non-numeric (Ammir results) Lucila Physician) CHLORIDE, SERUM 105 Normal (applies [facility] mEq/L to non-numeric (Ammir results) Lucila Physician) Carbon dioxide 28 mEq/L Normal (applies [facility] [VFr/PPres] in to non-numeric (Ammir Gas delivery results) [facility]ila system Physician) Anion gap in 13.8 Normal (applies [facility] Body fluid mEq/L to non-numeric (Ammir results) Lucila Physician) BLOOD UREA 16 mg/dL Normal (applies [facility] NITROGEN to non-numeric (Ammir results) Lucila Physician) CREATININE, 0.80 Normal (applies [facility] SERUM mg/dL to non-numeric (Ammir results) Lucila Physician) CALCIUM, SERUM 10.2 Normal (applies [facility] mg/dL to non-numeric (Ammir results) Lucila Physician) TOTAL PROTEIN 7.3 g/dL Normal (applies [facility] to non-numeric (Ammir results) Lucila Physician) Microalbumin 4.3 g/dL Normal (applies [facility] [Mass/time] in to non-numeric (Ammir Urine collected results) Lucila for unspecified Physician) duration Globulin 3.0 gldl Normal (applies [facility] [Mass/time] in to non-numeric (Ammir 24 hour Urine results) Lucila Physician) BILIRUBIN, TOTAL 0.6 Normal (applies [facility] mg/dL to non-numeric (Ammir results) Lucila Physician) A/G RATIO 1.43 Normal (applies [facility] g/dl to non-numeric (Ammir results) Lucila Physician) ALKALINE 72 U/L Normal (applies [facility] PHOSPHATASE, ALP to non-numeric (Ammir results) Lucila Physician) ALT (SGPT) 42 U/L Normal (applies [facility] to non-numeric (Ammir results) Lucila Physician) AST 19 U/L Normal (applies [facility] to non-numeric (Ammir results) Lucila Physician) EGFR NON AFR 100 Normal (applies [facility] MALDIVIAN mL/min/1 to non-numeric (Ammir .73m2 results) Lucila Physician) EGFR AFR 121 Normal (applies [facility] MALDIVIAN mL/min/1 to non-numeric (Ammir .73m2 results) Lucila Physician) ID Date Data Source [id number] 03/15/2019 12:00:00 AM EDT [facility] (Ammir Lucila Physician) Name Value Range Interpretation Description Data Sup porting Code Source(s) Document(s ) WBC 10.3 Normal (applies [facility] 10(3)/uL to non-numeric (Ammir results) Lucila Physician) RBC 4.6 Normal (applies [facility] 10(6)/uL to non-numeric (Ammir results) Lucila Physician) Hemoglobin 13.2 g/dL Normal (applies [facility] [Mass/volume] to non-numeric (Ammir in Mixed venous results) Lucila blood by Physician) Oximetry Hematocrit 39.6 % Normal (applies [facility] [Pure volume to non-numeric (Ammir fraction] of results) [facility] Blood by Physician) Automated count MCV 85.9 fL Normal (applies [facility] to non-numeric (Ammir results) Lucila Physician) MCH 29 pg Normal (applies [facility] to non-numeric (Ammir results) Lucila Physician) MCHC 33 g/dL Normal (applies [facility] to non-numeric (Ammir results) Lucila Physician) RDWSD 37.8 fL Normal (applies [facility] to non-numeric (Ammir results) Lucila Physician) RDWCV 12.3 % Normal (applies [facility] to non-numeric (Ammir results) Lucila Physician) Platelet Count 354 Normal (applies [facility] 10(3)/uL to non-numeric (Ammir results) Lucila Physician) MPV 10.7 fL Normal (applies [facility] to non-numeric (Ammir results) Lucila Physician) Neutrophil Abs 6.79 Above high normal [facility] 10(3)/uL (Ammir Lucila Physician) Lymphocyte Abs 1.93 Normal (applies [facility] 10(3)/uL to non-numeric (Ammir results) Lucila Physician) Monocyte Abs 0.63 Normal (applies [facility] 10(3)/uL to non-numeric (Ammir results) Lucila Physician) Eosinophil Abs 0.90 Above high normal [facility] 10(3)/uL (Ammir Lucila Physician) Basophil Abs 0.02 Normal (applies [facility] 10(3)/uL to non-numeric (Ammir results) Lucila Physician) Immature 0.11 Above high normal [facility] Granulocyte Abs 10(3)/uL (Ammir Lucila Physician) Neutrophil % 66.10 % Normal (applies [facility] to non-numeric (Ammir results) Lucila Physician) Lymphocyte % 19 % Normal (applies [facility] to non-numeric (Ammir results) Lucila Physician) Monocyte % 6.1 % Normal (applies [facility] to non-numeric (Ammir results) Lucila Physician) Eosinophil % 8.8 % Above high normal [facility] (Ammir Lucila Physician) Basophil % 0.2 % Normal (applies [facility] to non-numeric (Ammir results) Lucila Physician) Immature 1.10 % Above high normal [facility] Granulocyte % (Ammir Lucila Physician) NRBC % 0.0 % Normal (applies [facility] to non-numeric (Ammir results) Lucila Physician) NRBC Abs 0.00 Normal (applies [facility] 10(3)/uL to non-numeric (Ammir results) Lucila Physician) ID Date Data Source [id number] 03/15/2019 12:00:00 AM EDT [facility] (Ammir Lucila Physician) Name Value Range Interpretation Description Data Sup porting Code Source(s) Document(s ) GLUCOSE 119 Normal (applies [facility] NONFASTING,SERUM mg/dL to non-numeric (Ammir results) Lucila Physician) SODIUM, SERUM 142 Normal (applies [facility] mEq/L to non-numeric (Ammir results) Lucila Physician) POTASSIUM, SERUM 4.8 Normal (applies [facility] mEq/L to non-numeric (Ammir results) Lucila Physician) CHLORIDE, SERUM 105 Normal (applies [facility] mEq/L to non-numeric (Ammir results) Lucila Physician) Carbon dioxide 28 mEq/L Normal (applies [facility] [VFr/PPres] in to non-numeric (Ammir Gas delivery results) Lucila system Physician) Anion gap in 13.8 Normal (applies [facility] Body fluid mEq/L to non-numeric (Ammir results) Lucila Physician) BLOOD UREA 16 mg/dL Normal (applies [facility] NITROGEN to non-numeric (Ammir results) Lucila Physician) CREATININE, 0.80 Normal (applies [facility] SERUM mg/dL to non-numeric (Ammir results) Lucila Physician) CALCIUM, SERUM 10.2 Normal (applies [facility] mg/dL to non-numeric (Ammir results) Lucila Physician) TOTAL PROTEIN 7.3 g/dL Normal (applies [facility] to non-numeric (Ammir results) Lucila Physician) Microalbumin 4.3 g/dL Normal (applies [facility] [Mass/time] in to non-numeric (Ammir Urine collected results) Lucila for unspecified Physician) duration Globulin 3.0 gldl Normal (applies [facility] [Mass/time] in to non-numeric (Ammir 24 hour Urine results) Lucila Physician) A/G RATIO 1.43 Normal (applies [facility] g/dl to non-numeric (Ammir results) Lucila Physician) BILIRUBIN, TOTAL 0.6 Normal (applies [facility] mg/dL to non-numeric (Ammir results) Lucila Physician) ALKALINE 72 U/L Normal (applies [facility] PHOSPHATASE, ALP to non-numeric (Ammir results) Lucila Physician) ALT (SGPT) 42 U/L Normal (applies [facility] to non-numeric (Ammir results) Lucila Physician) AST 19 U/L Normal (applies [facility] to non-numeric (Ammir results) Lucila Physician) EGFR NON AFR 100 Normal (applies [facility] MALDIVIAN mL/min/1 to non-numeric (Ammir .73m2 results) Lucila Physician) EGFR AFR 121 Normal (applies [facility] MALDIVIAN mL/min/1 to non-numeric (Ammir .73m2 results) Lucila Physician) ID Date Data Source [id number] 03/15/2019 12:00:00 AM EDT [facility] (Ammir Lucila Physician) Name Value Range Interpretation Description Data Sup porting Code Source(s) Document(s ) WBC 10.3 Normal (applies [facility] 10(3)/uL to non-numeric (Ammir results) [facility]ila Physician) RBC 4.6 Normal (applies [facility] 10(6)/uL to non-numeric (Ammir results) Lucila Physician) Hemoglobin 13.2 g/dL Normal (applies [facility] [Mass/volume] to non-numeric (Ammir in Mixed venous results) Lucila blood by Physician) Oximetry Hematocrit 39.6 % Normal (applies [facility] [Pure volume to non-numeric (Ammir fraction] of results) Lucila Blood by Physician) Automated count MCV 85.9 fL Normal (applies [facility] to non-numeric (Ammir results) Lucila Physician) MCH 29 pg Normal (applies [facility] to non-numeric (Ammir results) Lucila Physician) RDWSD 37.8 fL Normal (applies [facility] to non-numeric (Ammir results) Lucila Physician) MCHC 33 g/dL Normal (applies [facility] to non-numeric (Ammir results) Lucila Physician) RDWCV 12.3 % Normal (applies [facility] to non-numeric (Ammir results) Lucila Physician) Platelet Count 354 Normal (applies [facility] 10(3)/uL to non-numeric (Ammir results) Lucila Physician) MPV 10.7 fL Normal (applies [facility] to non-numeric (Ammir results) Lucila Physician) Neutrophil Abs 6.79 Above high normal [facility] 10(3)/uL (Ammir Lucila Physician) Lymphocyte Abs 1.93 Normal (applies [facility] 10(3)/uL to non-numeric (Ammir results) Lucila Physician) Monocyte Abs 0.63 Normal (applies [facility] 10(3)/uL to non-numeric (Ammir results) Lucila Physician) Eosinophil Abs 0.90 Above high normal [facility] 10(3)/uL (Ammir Lucila Physician) Basophil Abs 0.02 Normal (applies [facility] 10(3)/uL to non-numeric (Ammir results) Lucila Physician) Immature 0.11 Above high normal [facility] Granulocyte Abs 10(3)/uL (Ammir Lucila Physician) Neutrophil % 66.10 % Normal (applies [facility] to non-numeric (Ammir results) Lucila Physician) Lymphocyte % 19 % Normal (applies [facility] to non-numeric (Ammir results) Lucila Physician) Monocyte % 6.1 % Normal (applies [facility] to non-numeric (Ammir results) Lucila Physician) Eosinophil % 8.8 % Above high normal [facility] (Ammir Lucila Physician) Basophil % 0.2 % Normal (applies [facility] to non-numeric (Ammir results) Lucila Physician) Immature 1.10 % Above high normal [facility] Granulocyte % (Ammir Lucila Physician) NRBC % 0.0 % Normal (applies [facility] to non-numeric (Ammir results) Lucila Physician) NRBC Abs 0.00 Normal (applies [facility] 10(3)/uL to non-numeric (Ammir results) Lucila Physician) ID Date Data Source [id number] 03/15/2019 12:00:00 AM EDT [facility] (Ammir Lucila Physician) Name Value Range Interpretation Description Data Sup porting Code Source(s) Document(s ) GLUCOSE 119 Normal (applies [facility] NONFASTING,SERUM mg/dL to non-numeric (Ammir results) Lucila Physician) SODIUM, SERUM 142 Normal (applies [facility] mEq/L to non-numeric (Ammir results) Lucila Physician) POTASSIUM, SERUM 4.8 Normal (applies [facility] mEq/L to non-numeric (Ammir results) Lucila Physician) CHLORIDE, SERUM 105 Normal (applies [facility] mEq/L to non-numeric (Ammir results) Lucila Physician) Carbon dioxide 28 mEq/L Normal (applies [facility] [VFr/PPres] in to non-numeric (Ammir Gas delivery results) Lucila system Physician) Anion gap in 13.8 Normal (applies [facility] Body fluid mEq/L to non-numeric (Ammir results) Lucila Physician) BLOOD UREA 16 mg/dL Normal (applies [facility] NITROGEN to non-numeric (Ammir results) Lucila Physician) CREATININE, 0.80 Normal (applies [facility] SERUM mg/dL to non-numeric (Ammir results) Lucila Physician) CALCIUM, SERUM 10.2 Normal (applies [facility] mg/dL to non-numeric (Ammir results) Lucila Physician) TOTAL PROTEIN 7.3 g/dL Normal (applies [facility] to non-numeric (Ammir results) Lucila Physician) Microalbumin 4.3 g/dL Normal (applies [facility] [Mass/time] in to non-numeric (Ammir Urine collected results) Lucila for unspecified Physician) duration Globulin 3.0 gldl Normal (applies [facility] [Mass/time] in to non-numeric (Ammir 24 hour Urine results) Lucila Physician) A/G RATIO 1.43 Normal (applies [facility] g/dl to non-numeric (Ammir results) Lucila Physician) BILIRUBIN, TOTAL 0.6 Normal (applies [facility] mg/dL to non-numeric (Ammir results) Lucila Physician) ALKALINE 72 U/L Normal (applies [facility] PHOSPHATASE, ALP to non-numeric (Ammir results) Lucila Physician) ALT (SGPT) 42 U/L Normal (applies [facility] to non-numeric (Ammir results) Lucila Physician) AST 19 U/L Normal (applies [facility] to non-numeric (Ammir results) Lucila Physician) EGFR NON AFR 100 Normal (applies [facility] MALDIVIAN mL/min/1 to non-numeric (Ammir .73m2 results) Lucila Physician) EGFR AFR 121 Normal (applies [facility] MALDIVIAN mL/min/1 to non-numeric (Ammir .73m2 results) Lucila Physician) ID Date Data Source [id number] 03/15/2019 12:00:00 AM EDT [facility] (Ammir Lucila Physician) Name Value Range Interpretation Description Data Sup porting Code Source(s) Document(s ) WBC 10.3 Normal (applies [facility] 10(3)/uL to non-numeric (Ammir results) [facility]ila Physician) RBC 4.6 Normal (applies [facility] 10(6)/uL to non-numeric (Ammir results) Lucila Physician) Hemoglobin 13.2 g/dL Normal (applies [facility] [Mass/volume] to non-numeric (Ammir in Mixed venous results) Lucila blood by Physician) Oximetry Hematocrit 39.6 % Normal (applies [facility] [Pure volume to non-numeric (Ammir fraction] of results) Lucila Blood by Physician) Automated count MCV 85.9 fL Normal (applies [facility] to non-numeric (Ammir results) Lucila Physician) MCH 29 pg Normal (applies [facility] to non-numeric (Ammir results) Lucila Physician) MCHC 33 g/dL Normal (applies [facility] to non-numeric (Ammir results) Lucila Physician) RDWSD 37.8 fL Normal (applies [facility] to non-numeric (Ammir results) Lucila Physician) Platelet Count 354 Normal (applies [facility] 10(3)/uL to non-numeric (Ammir results) Lucila Physician) RDWCV 12.3 % Normal (applies [facility] to non-numeric (Ammir results) Lucila Physician) MPV 10.7 fL Normal (applies [facility] to non-numeric (Ammir results) Lucila Physician) Neutrophil Abs 6.79 Above high normal [facility] 10(3)/uL (Ammir Lucila Physician) Lymphocyte Abs 1.93 Normal (applies [facility] 10(3)/uL to non-numeric (Ammir results) Lucila Physician) Monocyte Abs 0.63 Normal (applies [facility] 10(3)/uL to non-numeric (Ammir results) Lucila Physician) Eosinophil Abs 0.90 Above high normal [facility] 10(3)/uL (Ammir Lucila Physician) Basophil Abs 0.02 Normal (applies [facility] 10(3)/uL to non-numeric (Ammir results) Lucila Physician) Immature 0.11 Above high normal [facility] Granulocyte Abs 10(3)/uL (Ammir Lucila Physician) Neutrophil % 66.10 % Normal (applies [facility] to non-numeric (Ammir results) Lucila Physician) Lymphocyte % 19 % Normal (applies [facility] to non-numeric (Ammir results) Lucila Physician) Monocyte % 6.1 % Normal (applies [facility] to non-numeric (Ammir results) Lucila Physician) Eosinophil % 8.8 % Above high normal [facility] (Ammir Lucila Physician) Basophil % 0.2 % Normal (applies [facility] to non-numeric (Ammir results) Lucila Physician) Immature 1.10 % Above high normal [facility] Granulocyte % (Ammir Lucila Physician) NRBC % 0.0 % Normal (applies [facility] to non-numeric (Ammir results) Lucila Physician) NRBC Abs 0.00 Normal (applies [facility] 10(3)/uL to non-numeric (Ammir results) Lucila Physician) ID Date Data Source [id number] 03/15/2019 12:00:00 AM EDT [facility] (Ammir Lucila Physician) Name Value Range Interpretation Description Data Sup porting Code Source(s) Document(s ) GLUCOSE 119 Normal (applies [facility] NONFASTING,SERUM mg/dL to non-numeric (Ammir results) Lucila Physician) SODIUM, SERUM 142 Normal (applies [facility] mEq/L to non-numeric (Ammir results) Lucila Physician) POTASSIUM, SERUM 4.8 Normal (applies [facility] mEq/L to non-numeric (Ammir results) Lucila Physician) CHLORIDE, SERUM 105 Normal (applies [facility] mEq/L to non-numeric (Ammir results) Lucila Physician) Carbon dioxide 28 mEq/L Normal (applies [facility] [VFr/PPres] in to non-numeric (Ammir Gas delivery results) Lucila system Physician) Anion gap in 13.8 Normal (applies [facility] Body fluid mEq/L to non-numeric (Ammir results) Lucila Physician) BLOOD UREA 16 mg/dL Normal (applies [facility] NITROGEN to non-numeric (Ammir results) Lucila Physician) CREATININE, 0.80 Normal (applies [facility] SERUM mg/dL to non-numeric (Ammir results) Lucila Physician) CALCIUM, SERUM 10.2 Normal (applies [facility] mg/dL to non-numeric (Ammir results) Lucila Physician) TOTAL PROTEIN 7.3 g/dL Normal (applies [facility] to non-numeric (Ammir results) Lucila Physician) Microalbumin 4.3 g/dL Normal (applies [facility] [Mass/time] in to non-numeric (Ammir Urine collected results) Lucila for unspecified Physician) duration Globulin 3.0 gldl Normal (applies [facility] [Mass/time] in to non-numeric (Ammir 24 hour Urine results) Lucila Physician) A/G RATIO 1.43 Normal (applies [facility] g/dl to non-numeric (Ammir results) Lucila Physician) BILIRUBIN, TOTAL 0.6 Normal (applies [facility] mg/dL to non-numeric (Ammir results) Lucila Physician) ALKALINE 72 U/L Normal (applies [facility] PHOSPHATASE, ALP to non-numeric (Ammir results) Lucila Physician) ALT (SGPT) 42 U/L Normal (applies [facility] to non-numeric (Ammir results) Lucila Physician) AST 19 U/L Normal (applies [facility] to non-numeric (Ammir results) Lucila Physician) EGFR NON AFR 100 Normal (applies [facility] MALDIVIAN mL/min/1 to non-numeric (Ammir .73m2 results) Lucila Physician) EGFR AFR 121 Normal (applies [facility] MALDIVIAN mL/min/1 to non-numeric (Ammir .73m2 results) Lucila Physician) ID Date Data Source [id number] 03/15/2019 12:00:00 AM EDT [facility] (Ammir Lucila Physician) Name Value Range Interpretation Description Data Sup porting Code Source(s) Document(s ) WBC 10.3 Normal (applies [facility] 10(3)/uL to non-numeric (Ammir results) Lucila Physician) RBC 4.6 Normal (applies [facility] 10(6)/uL to non-numeric (Ammir results) Lucila Physician) Hemoglobin 13.2 g/dL Normal (applies [facility] [Mass/volume] to non-numeric (Ammir in Mixed venous results) Lucila blood by Physician) Oximetry Hematocrit 39.6 % Normal (applies [facility] [Pure volume to non-numeric (Ammir fraction] of results) Lucila Blood by Physician) Automated count MCV 85.9 fL Normal (applies [facility] to non-numeric (Ammir results) Lucila Physician) MCH 29 pg Normal (applies [facility] to non-numeric (Ammir results) Lucila Physician) MCHC 33 g/dL Normal (applies [facility] to non-numeric (Ammir results) Lucila Physician) RDWSD 37.8 fL Normal (applies [facility] to non-numeric (Ammir results) Lucila Physician) RDWCV 12.3 % Normal (applies [facility] to non-numeric (Ammir results) Lucila Physician) Platelet Count 354 Normal (applies [facility] 10(3)/uL to non-numeric (Ammir results) Lucila Physician) MPV 10.7 fL Normal (applies [facility] to non-numeric (Ammir results) Lucila Physician) Neutrophil Abs 6.79 Above high normal [facility] 10(3)/uL (Ammir Lucila Physician) Lymphocyte Abs 1.93 Normal (applies [facility] 10(3)/uL to non-numeric (Ammir results) Lucila Physician) Monocyte Abs 0.63 Normal (applies [facility] 10(3)/uL to non-numeric (Ammir results) Lucila Physician) Eosinophil Abs 0.90 Above high normal [facility] 10(3)/uL (Ammir Lucila Physician) Basophil Abs 0.02 Normal (applies [facility] 10(3)/uL to non-numeric (Ammir results) Lucila Physician) Neutrophil % 66.10 % Normal (applies [facility] to non-numeric (Ammir results) Lucila Physician) Immature 0.11 Above high normal [facility] Granulocyte Abs 10(3)/uL (Ammir Lucila Physician) Lymphocyte % 19 % Normal (applies [facility] to non-numeric (Ammir results) Lucila Physician) Monocyte % 6.1 % Normal (applies [facility] to non-numeric (Ammir results) Lucila Physician) Eosinophil % 8.8 % Above high normal [facility] (Ammir Lucila Physician) Basophil % 0.2 % Normal (applies [facility] to non-numeric (Ammir results) Lucila Physician) Immature 1.10 % Above high normal [facility] Granulocyte % (Ammir Lucila Physician) NRBC % 0.0 % Normal (applies [facility] to non-numeric (Ammir results) Lucila Physician) NRBC Abs 0.00 Normal (applies [facility] 10(3)/uL to non-numeric (Ammir results) Lucila Physician) ID Date Data Source [id number] 03/15/2019 12:00:00 AM EDT [facility] (Ammir Lucila Physician) Name Value Range Interpretation Description Data Sup porting Code Source(s) Document(s ) GLUCOSE 119 Normal (applies [facility] NONFASTING,SERUM mg/dL to non-numeric (Ammir results) Lucila Physician) SODIUM, SERUM 142 Normal (applies [facility] mEq/L to non-numeric (Ammir results) Lucila Physician) POTASSIUM, SERUM 4.8 Normal (applies [facility] mEq/L to non-numeric (Ammir results) Lucila Physician) CHLORIDE, SERUM 105 Normal (applies [facility] mEq/L to non-numeric (Ammir results) Lucila Physician) Carbon dioxide 28 mEq/L Normal (applies [facility] [VFr/PPres] in to non-numeric (Ammir Gas delivery results) Lucila system Physician) Anion gap in 13.8 Normal (applies [facility] Body fluid mEq/L to non-numeric (Ammir results) Lucila Physician) BLOOD UREA 16 mg/dL Normal (applies [facility] NITROGEN to non-numeric (Ammir results) Lucila Physician) CREATININE, 0.80 Normal (applies [facility] SERUM mg/dL to non-numeric (Ammir results) Lucila Physician) CALCIUM, SERUM 10.2 Normal (applies [facility] mg/dL to non-numeric (Ammir results) Lucila Physician) TOTAL PROTEIN 7.3 g/dL Normal (applies [facility] to non-numeric (Ammir results) Lucila Physician) Microalbumin 4.3 g/dL Normal (applies [facility] [Mass/time] in to non-numeric (Ammir Urine collected results) Lucila for unspecified Physician) duration Globulin 3.0 gldl Normal (applies [facility] [Mass/time] in to non-numeric (Ammir 24 hour Urine results) Lucila Physician) A/G RATIO 1.43 Normal (applies [facility] g/dl to non-numeric (Ammir results) Lucila Physician) ALKALINE 72 U/L Normal (applies [facility] PHOSPHATASE, ALP to non-numeric (Ammir results) Lucila Physician) BILIRUBIN, TOTAL 0.6 Normal (applies [facility] mg/dL to non-numeric (Ammir results) Lucila Physician) ALT (SGPT) 42 U/L Normal (applies [facility] to non-numeric (Ammir results) Lucila Physician) AST 19 U/L Normal (applies [facility] to non-numeric (Ammir results) Lucila Physician) EGFR NON AFR 100 Normal (applies [facility] MALDIVIAN mL/min/1 to non-numeric (Ammir .73m2 results) Lucila Physician) EGFR AFR 121 Normal (applies [facility] MALDIVIAN mL/min/1 to non-numeric (Ammir .73m2 results) Lucila Physician) ID Date Data Source [id number] 02/28/2019 12:00:00 AM EDT [facility] (Ammir Lucila Physician) Name Value Range Interpretation Description Data Sup porting Code Source(s) Document(s ) WBC 9.2 Normal (applies [facility] 10(3)/uL to non-numeric (Ammir results) Lucila Physician) RBC 4.1 Normal (applies [facility] 10(6)/uL to non-numeric (Ammir results) Lucila Physician) Hemoglobin 12.2 g/dL Normal (applies [facility] [Mass/volume] to non-numeric (Ammir in Mixed venous results) Lucila blood by Physician) Oximetry Hematocrit 35.8 % Normal (applies [facility] [Pure volume to non-numeric (Ammir fraction] of results) Lucila Blood by Physician) Automated count MCV 86.5 fL Normal (applies [facility] to non-numeric (Ammir results) Lucila Physician) MCH 30 pg Normal (applies [facility] to non-numeric (Ammir results) Lucila Physician) MCHC 34 g/dL Normal (applies [facility] to non-numeric (Ammir results) Lucila Physician) RDWSD 39.2 fL Normal (applies [facility] to non-numeric (Ammir results) Lucila Physician) RDWCV 12.6 % Normal (applies [facility] to non-numeric (Ammir results) Lucila Physician) Platelet Count 368 Normal (applies [facility] 10(3)/uL to non-numeric (Ammir results) Lucila Physician) MPV 10.7 fL Normal (applies [facility] to non-numeric (Ammir results) Lucila Physician) Neutrophil Abs 5.26 Normal (applies [facility] 10(3)/uL to non-numeric (Ammir results) Lucila Physician) Lymphocyte Abs 2.22 Normal (applies [facility] 10(3)/uL to non-numeric (Ammir results) Lucila Physician) Monocyte Abs 0.76 Normal (applies [facility] 10(3)/uL to non-numeric (Ammir results) Lucila Physician) Eosinophil Abs 0.90 Above high normal [facility] 10(3)/uL (Ammir Lucila Physician) Basophil Abs 0.07 Normal (applies [facility] 10(3)/uL to non-numeric (Ammir results) Lucila Physician) Immature 0.05 Above high normal [facility] Granulocyte Abs 10(3)/uL (Ammir Lucila Physician) Neutrophil % 57.00 % Normal (applies [facility] to non-numeric (Ammir results) Lucila Physician) Lymphocyte % 24 % Normal (applies [facility] to non-numeric (Ammir results) Lucila Physician) Monocyte % 8.3 % Normal (applies [facility] to non-numeric (Ammir results) Lucila Physician) Eosinophil % 9.8 % Above high normal [facility] (Ammir Lucila Physician) Basophil % 0.8 % Normal (applies [facility] to non-numeric (Ammir results) Lucila Physician) Immature 0.50 % Normal (applies [facility] Granulocyte % to non-numeric (Ammir results) Lucila Physician) NRBC % 0.0 % Normal (applies [facility] to non-numeric (Ammir results) Lucila Physician) NRBC Abs 0.00 Normal (applies [facility] 10(3)/uL to non-numeric (Ammir results) Lucila Physician) ID Date Data Source [id number] 02/28/2019 12:00:00 AM EDT [facility] (Ammir Lucila Physician) Name Value Range Interpretation Description Data Sup porting Code Source(s) Document(s ) GLUCOSE 106 Normal (applies [facility] NONFASTING,SERUM mg/dL to non-numeric (Ammir results) Lucila Physician) POTASSIUM, SERUM 3.8 Normal (applies [facility] mEq/L to non-numeric (Ammir results) Lucila Physician) SODIUM, SERUM 143 Normal (applies [facility] mEq/L to non-numeric (Ammir results) Lucila Physician) CHLORIDE, SERUM 108 Normal (applies [facility] mEq/L to non-numeric (Ammir results) Lucila Physician) Carbon dioxide 26 mEq/L Normal (applies [facility] [VFr/PPres] in to non-numeric (Ammir Gas delivery results) Lucila system Physician) Anion gap in 12.8 Normal (applies [facility] Body fluid mEq/L to non-numeric (Ammir results) Lucila Physician) BLOOD UREA 14 mg/dL Normal (applies [facility] NITROGEN to non-numeric (Ammir results) Lucila Physician) CREATININE, 0.80 Normal (applies [facility] SERUM mg/dL to non-numeric (Ammir results) Lucila Physician) CALCIUM, SERUM 9.7 Normal (applies [facility] mg/dL to non-numeric (Ammir results) Lucila Physician) TOTAL PROTEIN 6.7 g/dL Normal (applies [facility] to non-numeric (Ammir results) Lucila Physician) Microalbumin 4.1 g/dL Normal (applies [facility] [Mass/time] in to non-numeric (Ammir Urine collected results) Lucila for unspecified Physician) duration Globulin 2.6 gldl Normal (applies [facility] [Mass/time] in to non-numeric (Ammir 24 hour Urine results) Lucila Physician) A/G RATIO 1.58 Normal (applies [facility] g/dl to non-numeric (Ammir results) Lucila Physician) BILIRUBIN, TOTAL 0.8 Normal (applies [facility] mg/dL to non-numeric (Ammir results) Lucila Physician) ALKALINE 106 U/L Normal (applies [facility] PHOSPHATASE, ALP to non-numeric (Ammir results) Lucila Physician) ALT (SGPT) 55 U/L Above high normal [facility] (Ammir Lucila Physician) AST 34 U/L Normal (applies [facility] to non-numeric (Ammir results) Lucila Physician) EGFR NON AFR 100 Normal (applies [facility] MALDIVIAN mL/min/1 to non-numeric (Ammir .73m2 results) Lucila Physician) EGFR AFR 121 Normal (applies [facility] MALDIVIAN mL/min/1 to non-numeric (Ammir .73m2 results) Lucila Physician) ID Date Data Source [id number] 02/28/2019 12:00:00 AM EDT [facility] (Ammir Lucila Physician) Name Value Range Interpretation Description Data Sup porting Code Source(s) Document(s ) WBC 9.2 Normal (applies [facility] 10(3)/uL to non-numeric (Ammir results) Lucila Physician) RBC 4.1 Normal (applies [facility] 10(6)/uL to non-numeric (Ammir results) Lucila Physician) Hemoglobin 12.2 g/dL Normal (applies [facility] [Mass/volume] to non-numeric (Ammir in Mixed venous results) Lucila blood by Physician) Oximetry Hematocrit 35.8 % Normal (applies [facility] [Pure volume to non-numeric (Ammir fraction] of results) Lucila Blood by Physician) Automated count MCV 86.5 fL Normal (applies [facility] to non-numeric (Ammir results) Lucila Physician) MCH 30 pg Normal (applies [facility] to non-numeric (Ammir results) Lucila Physician) MCHC 34 g/dL Normal (applies [facility] to non-numeric (Ammir results) Lucila Physician) RDWSD 39.2 fL Normal (applies [facility] to non-numeric (Ammir results) Lucila Physician) RDWCV 12.6 % Normal (applies [facility] to non-numeric (Ammir results) Lucila Physician) Platelet Count 368 Normal (applies [facility] 10(3)/uL to non-numeric (Ammir results) Lucila Physician) MPV 10.7 fL Normal (applies [facility] to non-numeric (Ammir results) Lucila Physician) Neutrophil Abs 5.26 Normal (applies [facility] 10(3)/uL to non-numeric (Ammir results) Lucila Physician) Lymphocyte Abs 2.22 Normal (applies [facility] 10(3)/uL to non-numeric (Ammir results) Lucila Physician) Monocyte Abs 0.76 Normal (applies [facility] 10(3)/uL to non-numeric (Ammir results) Lucila Physician) Eosinophil Abs 0.90 Above high normal [facility] 10(3)/uL (Ammir Lucila Physician) Basophil Abs 0.07 Normal (applies [facility] 10(3)/uL to non-numeric (Ammir results) Lucila Physician) Immature 0.05 Above high normal [facility] Granulocyte Abs 10(3)/uL (Ammir Lucila Physician) Neutrophil % 57.00 % Normal (applies [facility] to non-numeric (Ammir results) Lucila Physician) Lymphocyte % 24 % Normal (applies [facility] to non-numeric (Ammir results) Lucila Physician) Monocyte % 8.3 % Normal (applies [facility] to non-numeric (Ammir results) Lucila Physician) Eosinophil % 9.8 % Above high normal [facility] (Ammir Lucila Physician) Basophil % 0.8 % Normal (applies [facility] to non-numeric (Ammir results) Lucila Physician) Immature 0.50 % Normal (applies [facility] Granulocyte % to non-numeric (Ammir results) Lucila Physician) NRBC % 0.0 % Normal (applies [facility] to non-numeric (Ammir results) Lucila Physician) NRBC Abs 0.00 Normal (applies [facility] 10(3)/uL to non-numeric (Ammir results) Lucila Physician) ID Date Data Source [id number] 02/28/2019 12:00:00 AM EDT [facility] (Ammir Lucila Physician) Name Value Range Interpretation Description Data Sup porting Code Source(s) Document(s ) GLUCOSE 106 Normal (applies [facility] NONFASTING,SERUM mg/dL to non-numeric (Ammir results) Lucila Physician) SODIUM, SERUM 143 Normal (applies [facility] mEq/L to non-numeric (Ammir results) Lucila Physician) POTASSIUM, SERUM 3.8 Normal (applies [facility] mEq/L to non-numeric (Ammir results) Lucila Physician) CHLORIDE, SERUM 108 Normal (applies [facility] mEq/L to non-numeric (Ammir results) Lucila Physician) Carbon dioxide 26 mEq/L Normal (applies [facility] [VFr/PPres] in to non-numeric (Ammir Gas delivery results) Lucila system Physician) Anion gap in 12.8 Normal (applies [facility] Body fluid mEq/L to non-numeric (Ammir results) Lucila Physician) BLOOD UREA 14 mg/dL Normal (applies [facility] NITROGEN to non-numeric (Ammir results) Lucila Physician) CREATININE, 0.80 Normal (applies [facility] SERUM mg/dL to non-numeric (Ammir results) Lucila Physician) CALCIUM, SERUM 9.7 Normal (applies [facility] mg/dL to non-numeric (Ammir results) Lucila Physician) TOTAL PROTEIN 6.7 g/dL Normal (applies [facility] to non-numeric (Ammir results) Lucila Physician) Microalbumin 4.1 g/dL Normal (applies [facility] [Mass/time] in to non-numeric (Ammir Urine collected results) Lucila for unspecified Physician) duration Globulin 2.6 gldl Normal (applies [facility] [Mass/time] in to non-numeric (Ammir 24 hour Urine results) Lucila Physician) A/G RATIO 1.58 Normal (applies [facility] g/dl to non-numeric (Ammir results) Lucila Physician) BILIRUBIN, TOTAL 0.8 Normal (applies [facility] mg/dL to non-numeric (Ammir results) Lucila Physician) ALKALINE 106 U/L Normal (applies [facility] PHOSPHATASE, ALP to non-numeric (Ammir results) Lucila Physician) ALT (SGPT) 55 U/L Above high normal [facility] (Ammir Lucila Physician) AST 34 U/L Normal (applies [facility] to non-numeric (Ammir results) Lucila Physician) EGFR NON AFR 100 Normal (applies [facility] MALDIVIAN mL/min/1 to non-numeric (Ammir .73m2 results) Lucila Physician) EGFR AFR 121 Normal (applies [facility] MALDIVIAN mL/min/1 to non-numeric (Ammir .73m2 results) Lucila Physician) ID Date Data Source [id number] 02/28/2019 12:00:00 AM EDT [facility] (Ammir Lucila Physician) Name Value Range Interpretation Description Data Sup porting Code Source(s) Document(s ) WBC 9.2 Normal (applies [facility] 10(3)/uL to non-numeric (Ammir results) Lucila Physician) RBC 4.1 Normal (applies [facility] 10(6)/uL to non-numeric (Ammir results) Lucila Physician) Hemoglobin 12.2 g/dL Normal (applies [facility] [Mass/volume] to non-numeric (Ammir in Mixed venous results) Lucila blood by Physician) Oximetry Hematocrit 35.8 % Normal (applies [facility] [Pure volume to non-numeric (Ammir fraction] of results) Lucila Blood by Physician) Automated count MCV 86.5 fL Normal (applies [facility] to non-numeric (Ammir results) Lucila Physician) MCH 30 pg Normal (applies [facility] to non-numeric (Ammir results) Lucila Physician) RDWSD 39.2 fL Normal (applies [facility] to non-numeric (Ammir results) Lucila Physician) MCHC 34 g/dL Normal (applies [facility] to non-numeric (Ammir results) Lucila Physician) RDWCV 12.6 % Normal (applies [facility] to non-numeric (Ammir results) Lucila Physician) Platelet Count 368 Normal (applies [facility] 10(3)/uL to non-numeric (Ammir results) Lucila Physician) MPV 10.7 fL Normal (applies [facility] to non-numeric (Ammir results) Lucila Physician) Neutrophil Abs 5.26 Normal (applies [facility] 10(3)/uL to non-numeric (Ammir results) Lucila Physician) Lymphocyte Abs 2.22 Normal (applies [facility] 10(3)/uL to non-numeric (Ammir results) Lucila Physician) Monocyte Abs 0.76 Normal (applies [facility] 10(3)/uL to non-numeric (Ammir results) Lucila Physician) Eosinophil Abs 0.90 Above high normal [facility] 10(3)/uL (Ammir Lucila Physician) Basophil Abs 0.07 Normal (applies [facility] 10(3)/uL to non-numeric (Ammir results) Lucila Physician) Immature 0.05 Above high normal [facility] Granulocyte Abs 10(3)/uL (Ammir Lucila Physician) Neutrophil % 57.00 % Normal (applies [facility] to non-numeric (Ammir results) Lucila Physician) Lymphocyte % 24 % Normal (applies [facility] to non-numeric (Ammir results) Lucila Physician) Monocyte % 8.3 % Normal (applies [facility] to non-numeric (Ammir results) Lucila Physician) Basophil % 0.8 % Normal (applies [facility] to non-numeric (Ammir results) Lucila Physician) Eosinophil % 9.8 % Above high normal [facility] (Ammir Lucila Physician) Immature 0.50 % Normal (applies [facility] Granulocyte % to non-numeric (Ammir results) Lucila Physician) NRBC % 0.0 % Normal (applies [facility] to non-numeric (Ammir results) Lucila Physician) NRBC Abs 0.00 Normal (applies [facility] 10(3)/uL to non-numeric (Ammir results) Luclia Physician) ID Date Data Source [id number] 02/28/2019 12:00:00 AM EDT [facility] (Ammir Lucila Physician) Name Value Range Interpretation Description Data Sup porting Code Source(s) Document(s ) GLUCOSE 106 Normal (applies [facility] NONFASTING,SERUM mg/dL to non-numeric (Ammir results) Lucila Physician) SODIUM, SERUM 143 Normal (applies [facility] mEq/L to non-numeric (Ammir results) Lucila Physician) CHLORIDE, SERUM 108 Normal (applies [facility] mEq/L to non-numeric (Ammir results) Lucila Physician) POTASSIUM, SERUM 3.8 Normal (applies [facility] mEq/L to non-numeric (Ammir results) Lucila Physician) Carbon dioxide 26 mEq/L Normal (applies [facility] [VFr/PPres] in to non-numeric (Ammir Gas delivery results) Lucila system Physician) Anion gap in 12.8 Normal (applies [facility] Body fluid mEq/L to non-numeric (Ammir results) Lucila Physician) BLOOD UREA 14 mg/dL Normal (applies [facility] NITROGEN to non-numeric (Ammir results) Lucila Physician) CREATININE, 0.80 Normal (applies [facility] SERUM mg/dL to non-numeric (Ammir results) Lucila Physician) TOTAL PROTEIN 6.7 g/dL Normal (applies [facility] to non-numeric (Ammir results) Lucila Physician) CALCIUM, SERUM 9.7 Normal (applies [facility] mg/dL to non-numeric (Ammir results) Lucila Physician) Microalbumin 4.1 g/dL Normal (applies [facility] [Mass/time] in to non-numeric (Ammir Urine collected results) Lucila for unspecified Physician) duration Globulin 2.6 gldl Normal (applies [facility] [Mass/time] in to non-numeric (Ammir 24 hour Urine results) Lucila Physician) A/G RATIO 1.58 Normal (applies [facility] g/dl to non-numeric (Ammir results) Lucila Physician) BILIRUBIN, TOTAL 0.8 Normal (applies [facility] mg/dL to non-numeric (Ammir results) Lucila Physician) ALKALINE 106 U/L Normal (applies [facility] PHOSPHATASE, ALP to non-numeric (Ammir results) Lucila Physician) AST 34 U/L Normal (applies [facility] to non-numeric (Ammir results) Lucila Physician) ALT (SGPT) 55 U/L Above high normal [facility] (Ammir Lucila Physician) EGFR NON AFR 100 Normal (applies [facility] MALDIVIAN mL/min/1 to non-numeric (Ammir .73m2 results) Lucila Physician) EGFR AFR 121 Normal (applies [facility] MALDIVIAN mL/min/1 to non-numeric (Ammir .73m2 results) Lucila Physician) ID Date Data Source [id number] 02/28/2019 12:00:00 AM EDT [facility] (Ammir Lucila Physician) Name Value Range Interpretation Description Data Sup porting Code Source(s) Document(s ) WBC 9.2 Normal (applies [facility] 10(3)/uL to non-numeric (Ammir results) Lucila Physician) RBC 4.1 Normal (applies [facility] 10(6)/uL to non-numeric (Ammir results) Lucila Physician) Hemoglobin 12.2 g/dL Normal (applies [facility] [Mass/volume] to non-numeric (Ammir in Mixed venous results) Lucila blood by Physician) Oximetry Hematocrit 35.8 % Normal (applies [facility] [Pure volume to non-numeric (Ammir fraction] of results) Lucila Blood by Physician) Automated count MCV 86.5 fL Normal (applies [facility] to non-numeric (Ammir results) Lucila Physician) MCH 30 pg Normal (applies [facility] to non-numeric (Ammir results) Lucila Physician) MCHC 34 g/dL Normal (applies [facility] to non-numeric (Ammir results) Lucila Physician) RDWSD 39.2 fL Normal (applies [facility] to non-numeric (Ammir results) Lucila Physician) RDWCV 12.6 % Normal (applies [facility] to non-numeric (Ammir results) Lucila Physician) Platelet Count 368 Normal (applies [facility] 10(3)/uL to non-numeric (Ammir results) Lucila Physician) MPV 10.7 fL Normal (applies [facility] to non-numeric (Ammir results) Lucila Physician) Neutrophil Abs 5.26 Normal (applies [facility] 10(3)/uL to non-numeric (Ammir results) Lucila Physician) Lymphocyte Abs 2.22 Normal (applies [facility] 10(3)/uL to non-numeric (Ammir results) Lucila Physician) Eosinophil Abs 0.90 Above high normal [facility] 10(3)/uL (Ammir Lucila Physician) Monocyte Abs 0.76 Normal (applies [facility] 10(3)/uL to non-numeric (Ammir results) Lucila Physician) Basophil Abs 0.07 Normal (applies [facility] 10(3)/uL to non-numeric (Ammir results) Lucila Physician) Immature 0.05 Above high normal [facility] Granulocyte Abs 10(3)/uL (Ammir Lucila Physician) Neutrophil % 57.00 % Normal (applies [facility] to non-numeric (Ammir results) Lucila Physician) Lymphocyte % 24 % Normal (applies [facility] to non-numeric (Ammir results) Lucila Physician) Monocyte % 8.3 % Normal (applies [facility] to non-numeric (Ammir results) Lucila Physician) Eosinophil % 9.8 % Above high normal [facility] (Ammir Lucila Physician) Basophil % 0.8 % Normal (applies [facility] to non-numeric (Ammir results) Lucila Physician) Immature 0.50 % Normal (applies [facility] Granulocyte % to non-numeric (Ammir results) Lucila Physician) NRBC % 0.0 % Normal (applies [facility] to non-numeric (Ammir results) Lucila Physician) NRBC Abs 0.00 Normal (applies [facility] 10(3)/uL to non-numeric (Ammir results) Lucila Physician) ID Date Data Source [id number] 02/28/2019 12:00:00 AM EDT [facility] (Ammir Lucila Physician) Name Value Range Interpretation Description Data Sup porting Code Source(s) Document(s ) GLUCOSE 106 Normal (applies [facility] NONFASTING,SERUM mg/dL to non-numeric (Ammir results) Lucila Physician) SODIUM, SERUM 143 Normal (applies [facility] mEq/L to non-numeric (Ammir results) Lucila Physician) POTASSIUM, SERUM 3.8 Normal (applies [facility] mEq/L to non-numeric (Ammir results) Lucila Physician) CHLORIDE, SERUM 108 Normal (applies [facility] mEq/L to non-numeric (Ammir results) Lucila Physician) Carbon dioxide 26 mEq/L Normal (applies [facility] [VFr/PPres] in to non-numeric (Ammir Gas delivery results) Lucila system Physician) Anion gap in 12.8 Normal (applies [facility] Body fluid mEq/L to non-numeric (Ammir results) Lucila Physician) BLOOD UREA 14 mg/dL Normal (applies [facility] NITROGEN to non-numeric (Ammir results) Lucila Physician) CREATININE, 0.80 Normal (applies [facility] SERUM mg/dL to non-numeric (Ammir results) Lucila Physician) CALCIUM, SERUM 9.7 Normal (applies [facility] mg/dL to non-numeric (Ammir results) Lucila Physician) TOTAL PROTEIN 6.7 g/dL Normal (applies [facility] to non-numeric (Ammir results) Lucila Physician) Microalbumin 4.1 g/dL Normal (applies [facility] [Mass/time] in to non-numeric (Ammir Urine collected results) Lucila for unspecified Physician) duration Globulin 2.6 gldl Normal (applies [facility] [Mass/time] in to non-numeric (Ammir 24 hour Urine results) Lucila Physician) A/G RATIO 1.58 Normal (applies [facility] g/dl to non-numeric (Ammir results) Lucila Physician) BILIRUBIN, TOTAL 0.8 Normal (applies [facility] mg/dL to non-numeric (Ammir results) Lucila Physician) ALKALINE 106 U/L Normal (applies [facility] PHOSPHATASE, ALP to non-numeric (Ammir results) Lucila Physician) ALT (SGPT) 55 U/L Above high normal [facility] (Ammir Lucila Physician) AST 34 U/L Normal (applies [facility] to non-numeric (Ammir results) Lucila Physician) EGFR NON AFR 100 Normal (applies [facility] MALDIVIAN mL/min/1 to non-numeric (Ammir .73m2 results) Lucila Physician) EGFR AFR 121 Normal (applies [facility] MALDIVIAN mL/min/1 to non-numeric (Ammir .73m2 results) Lucila Physician) ID Date Data Source [id number] 02/28/2019 12:00:00 AM EDT [facility] (Ammir Lucila Physician) Name Value Range Interpretation Description Data Sup porting Code Source(s) Document(s ) WBC 9.2 Normal (applies [facility] 10(3)/uL to non-numeric (Ammir results) Lucila Physician) RBC 4.1 Normal (applies [facility] 10(6)/uL to non-numeric (Ammir results) Lucila Physician) Hemoglobin 12.2 g/dL Normal (applies [facility] [Mass/volume] to non-numeric (Ammir in Mixed venous results) Lucila blood by Physician) Oximetry Hematocrit 35.8 % Normal (applies [facility] [Pure volume to non-numeric (Ammir fraction] of results) Lucila Blood by Physician) Automated count MCV 86.5 fL Normal (applies [facility] to non-numeric (Ammir results) Lucila Physician) MCH 30 pg Normal (applies [facility] to non-numeric (Ammir results) Lucila Physician) MCHC 34 g/dL Normal (applies [facility] to non-numeric (Ammir results) Lucila Physician) RDWSD 39.2 fL Normal (applies [facility] to non-numeric (Ammir results) Lucila Physician) RDWCV 12.6 % Normal (applies [facility] to non-numeric (Ammir results) Lucila Physician) Platelet Count 368 Normal (applies [facility] 10(3)/uL to non-numeric (Ammir results) Lucila Physician) MPV 10.7 fL Normal (applies [facility] to non-numeric (Ammir results) Lucila Physician) Neutrophil Abs 5.26 Normal (applies [facility] 10(3)/uL to non-numeric (Ammir results) Lucila Physician) Lymphocyte Abs 2.22 Normal (applies [facility] 10(3)/uL to non-numeric (Ammir results) Lucila Physician) Monocyte Abs 0.76 Normal (applies [facility] 10(3)/uL to non-numeric (Ammir results) Lucila Physician) Eosinophil Abs 0.90 Above high normal [facility] 10(3)/uL (Ammir Lucila Physician) Basophil Abs 0.07 Normal (applies [facility] 10(3)/uL to non-numeric (Ammir results) Lucila Physician) Immature 0.05 Above high normal [facility] Granulocyte Abs 10(3)/uL (Ammir Lucila Physician) Neutrophil % 57.00 % Normal (applies [facility] to non-numeric (Ammir results) Lucila Physician) Lymphocyte % 24 % Normal (applies [facility] to non-numeric (Ammir results) Lucila Physician) Monocyte % 8.3 % Normal (applies [facility] to non-numeric (Ammir results) Lucila Physician) Eosinophil % 9.8 % Above high normal [facility] (Ammir Lucila Physician) Basophil % 0.8 % Normal (applies [facility] to non-numeric (Ammir results) Lucila Physician) Immature 0.50 % Normal (applies [facility] Granulocyte % to non-numeric (Ammir results) Lucila Physician) NRBC % 0.0 % Normal (applies [facility] to non-numeric (Ammir results) Lucila Physician) NRBC Abs 0.00 Normal (applies [facility] 10(3)/uL to non-numeric (Ammir results) Lucila Physician) ID Date Data Source [id number] 02/28/2019 12:00:00 AM EDT [facility] (Ammir Lucila Physician) Name Value Range Interpretation Description Data Sup porting Code Source(s) Document(s ) GLUCOSE 106 Normal (applies [facility] NONFASTING,SERUM mg/dL to non-numeric (Ammir results) Lucila Physician) SODIUM, SERUM 143 Normal (applies [facility] mEq/L to non-numeric (Ammir results) Lucila Physician) POTASSIUM, SERUM 3.8 Normal (applies [facility] mEq/L to non-numeric (Ammir results) Lucila Physician) CHLORIDE, SERUM 108 Normal (applies [facility] mEq/L to non-numeric (Ammir results) Lucila Physician) Carbon dioxide 26 mEq/L Normal (applies [facility] [VFr/PPres] in to non-numeric (Ammir Gas delivery results) Lucila system Physician) Anion gap in 12.8 Normal (applies [facility] Body fluid mEq/L to non-numeric (Ammir results) Lucila Physician) BLOOD UREA 14 mg/dL Normal (applies [facility] NITROGEN to non-numeric (Ammir results) Lucila Physician) CREATININE, 0.80 Normal (applies [facility] SERUM mg/dL to non-numeric (Ammir results) Lucila Physician) CALCIUM, SERUM 9.7 Normal (applies [facility] mg/dL to non-numeric (Ammir results) Lucila Physician) TOTAL PROTEIN 6.7 g/dL Normal (applies [facility] to non-numeric (Ammir results) Lucila Physician) Microalbumin 4.1 g/dL Normal (applies [facility] [Mass/time] in to non-numeric (Ammir Urine collected results) Lucila for unspecified Physician) duration Globulin 2.6 gldl Normal (applies [facility] [Mass/time] in to non-numeric (Ammir 24 hour Urine results) Lucila Physician) A/G RATIO 1.58 Normal (applies [facility] g/dl to non-numeric (Ammir results) Lucila Physician) BILIRUBIN, TOTAL 0.8 Normal (applies [facility] mg/dL to non-numeric (Ammir results) Lucila Physician) ALKALINE 106 U/L Normal (applies [facility] PHOSPHATASE, ALP to non-numeric (Ammir results) Lucila Physician) ALT (SGPT) 55 U/L Above high normal [facility] (Ammir Lucila Physician) AST 34 U/L Normal (applies [facility] to non-numeric (Ammir results) Lucila Physician) EGFR NON AFR 100 Normal (applies [facility] MALDIVIAN mL/min/1 to non-numeric (Ammir .73m2 results) Lucila Physician) EGFR AFR 121 Normal (applies [facility] MALDIVIAN mL/min/1 to non-numeric (Ammir .73m2 results) Lucila Physician) ID Date Data Source [id number] 01/01/2019 12:00:00 AM EDT [facility] (Ammir Lcuila Physician) Name Value Range Interpretation Description Data Sup porting Code Source(s) Document(s ) VITAMIN D, 18 ng/mL Below low normal [facility] (Ammi r 25-OH, TOTAL Lucila Physician) VITAMIN D, 5 ng/mL Normal (applies to [facility] (Am brooks 25-OH, D3 non-numeric Lucila results) Physician) VITAMIN D, 13 ng/mL Normal (applies to [facility] (Am brooks 25-OH, D2 non-numeric Lucila results) Physician) ID Date Data Source [id number] 01/01/2019 12:00:00 AM EDT [facility] (Ammir Lucila Physician) Name Value Range Interpretation Description Data Sup porting Code Source(s) Document(s ) Hemoglobin A1c 7.4 % of Above high normal [facility] in Blood total Hgb (Ammir Lucila Physician) ID Date Data Source [id number] 01/01/2019 12:00:00 AM EDT [facility] (Ammir Lucila Physician) Name Value Range Interpretation Description Data Sup porting Code Source(s) Document(s ) WBC 12.2 Above high normal [facility] Thousand/ (Ammir uL Lucila Physician) RBC 4.77 Normal (applies to [facility] Million/u non-numeric (Ammir L results) Lucila Physician) Hemoglobin 13.8 g/dL Normal (applies to [facility] [Mass/volume] non-numeric (Ammir in Mixed results) Lucila venous blood Physician) by Oximetry Hematocrit 40.8 % Normal (applies to [facility] [Pure volume non-numeric (Ammir fraction] of results) Lucila Blood by Physician) Automated count MCV 85.5 fL Normal (applies to [facility] non-numeric (Ammir results) Lucila Physician) MCH 28.9 pg Normal (applies to [facility] non-numeric (Ammir results) Lucila Physician) MCHC 33.8 g/dL Normal (applies to [facility] non-numeric (Ammir results) Lucila Physician) RDW 13.1 % Normal (applies to [facility] non-numeric (Ammir results) Lucila Physician) PLATELET COUNT 282 Normal (applies to [facility] Thousand/ non-numeric (Ammir uL results) Lucila Physician) MPV 11.1 fL Normal (applies to [facility] non-numeric (Ammir results) Lucila Physician) ID Date Data Source [id number] 01/01/2019 12:00:00 AM EDT [facility] (Ammir Lucila Physician) Name Value Range Interpretation Description Data Sup porting Code Source(s) Document(s ) Glucose 131 Normal (applies [facility] [Mass/volume] in mg/dL to non-numeric (Ammir Urine collected results) Lucila for unspecified Physician) duration Sodium 140 Normal (applies [facility] [Moles/volume] mmol/L to non-numeric (Ammir in Serum, Plasma results) Lucila or Blood Physician) Potassium 3.9 Normal (applies [facility] [Mass/volume] in mmol/L to non-numeric (Ammir Blood results) Lucila Physician) Chloride 100 Normal (applies [facility] [Moles/volume] mmol/L to non-numeric (Ammir in Serum, Plasma results) Lucila or Blood Physician) Carbon dioxide 32 Normal (applies [facility] [VFr/PPres] in mmol/L to non-numeric (Ammir Gas delivery results) Lucila system Physician) Urea nitrogen 15 mg/dL Normal (applies [facility] [Moles/volume] to non-numeric (Ammir in Blood results) Lucila Physician) Creatinine 0.96 Normal (applies [facility] [Interpretation] mg/dL to non-numeric (Ammir in Urine results) Lucila Physician) BUN/CREATININE NOTE Normal (applies [facility] RATIO to non-numeric (Ammir results) Lucila Physician) Calcium 10.0 Normal (applies [facility] [Moles/volume] mg/dL to non-numeric (Ammir in Urine results) Lucila collected for Physician) unspecified duration PROTEIN, TOTAL 7.3 g/dL Normal (applies [facility] to non-numeric (Ammir results) Lucila Physician) Microalbumin 4.1 g/dL Normal (applies [facility] [Mass/time] in to non-numeric (Ammir Urine collected results) Lucila for unspecified Physician) duration Globulin 3.2 g/dL Normal (applies [facility] [Mass/time] in (calc) to non-numeric (Ammir 24 hour Urine results) Lucila Physician) ALBUMIN/GLOBULIN 1.3 Normal (applies [facility] RATIO (calc) to non-numeric (Ammir results) Lucila Physician) BILIRUBIN,TOTAL 0.7 Normal (applies [facility] mg/dL to non-numeric (Ammir results) Lucila Physician) Alkaline 65 U/L Normal (applies [facility] phosphatase to non-numeric (Ammir [Enzymatic results) Lucila activity/volume] Physician) in Serum, Plasma or Blood AST 25 U/L Normal (applies [facility] to non-numeric (Ammir results) Lucila Physician) ALT 30 U/L Normal (applies [facility] to non-numeric (Ammir results) Lucila Physician) EGFR NON AFR 77 Normal (applies [facility] MALDIVIAN mL/min/1 to non-numeric (Ammir .73m2 results) Lucila Physician) EGFR 89 Normal (applies [facility] MALDIVIAN mL/min/1 to non-numeric (Ammir .73m2 results) Lucila Physician) ID Date Data Source [id number] 01/01/2019 12:00:00 AM EDT [facility] (Ammir Lucila Physician) Name Value Range Interpretation Description Data Sup porting Code Source(s) Document(s ) VITAMIN D, 18 ng/mL Below low normal [facility] (Ammi r 25-OH, TOTAL Lucila Physician) VITAMIN D, 5 ng/mL Normal (applies to [facility] (Am brooks 25-OH, D3 non-numeric Lucila results) Physician) VITAMIN D, 13 ng/mL Normal (applies to [facility] (Am brooks 25-OH, D2 non-numeric Lucila results) Physician) ID Date Data Source [id number] 01/01/2019 12:00:00 AM EDT [facility] (Ammir Lucila Physician) Name Value Range Interpretation Description Data Sup porting Code Source(s) Document(s ) Hemoglobin A1c 7.4 % of Above high normal [facility] in Blood total Hgb (Ammir Lucila Physician) ID Date Data Source [id number] 01/01/2019 12:00:00 AM EDT [facility] (Ammir Lucila Physician) Name Value Range Interpretation Description Data Sup porting Code Source(s) Document(s ) WBC 12.2 Above high normal [facility] Thousand/ (Ammir uL Lucila Physician) RBC 4.77 Normal (applies to [facility] Million/u non-numeric (Ammir L results) Lucila Physician) Hemoglobin 13.8 g/dL Normal (applies to [facility] [Mass/volume] non-numeric (Ammir in Mixed results) Lucila venous blood Physician) by Oximetry Hematocrit 40.8 % Normal (applies to [facility] [Pure volume non-numeric (Ammir fraction] of results) Lucila Blood by Physician) Automated count MCV 85.5 fL Normal (applies to [facility] non-numeric (Ammir results) Lucila Physician) MCH 28.9 pg Normal (applies to [facility] non-numeric (Ammir results) Lucila Physician) MCHC 33.8 g/dL Normal (applies to [facility] non-numeric (Ammir results) Lucila Physician) RDW 13.1 % Normal (applies to [facility] non-numeric (Ammir results) Lucila Physician) PLATELET COUNT 282 Normal (applies to [facility] Thousand/ non-numeric (Ammir uL results) Lucila Physician) MPV 11.1 fL Normal (applies to [facility] non-numeric (Ammir results) Lucila Physician) ID Date Data Source [id number] 01/01/2019 12:00:00 AM EDT [facility] (Ammir Lucila Physician) Name Value Range Interpretation Description Data Sup porting Code Source(s) Document(s ) Glucose 131 Normal (applies [facility] [Mass/volume] in mg/dL to non-numeric (Ammir Urine collected results) Lucila for unspecified Physician) duration Sodium 140 Normal (applies [facility] [Moles/volume] mmol/L to non-numeric (Ammir in Serum, Plasma results) Lucila or Blood Physician) Potassium 3.9 Normal (applies [facility] [Mass/volume] in mmol/L to non-numeric (Ammir Blood results) Lucila Physician) Chloride 100 Normal (applies [facility] [Moles/volume] mmol/L to non-numeric (Ammir in Serum, Plasma results) Lucila or Blood Physician) Carbon dioxide 32 Normal (applies [facility] [VFr/PPres] in mmol/L to non-numeric (Ammir Gas delivery results) Lucila system Physician) Urea nitrogen 15 mg/dL Normal (applies [facility] [Moles/volume] to non-numeric (Ammir in Blood results) Lucila Physician) Creatinine 0.96 Normal (applies [facility] [Interpretation] mg/dL to non-numeric (Ammir in Urine results) Lucila Physician) BUN/CREATININE NOTE Normal (applies [facility] RATIO to non-numeric (Ammir results) Lucila Physician) Calcium 10.0 Normal (applies [facility] [Moles/volume] mg/dL to non-numeric (Ammir in Urine results) Lucila collected for Physician) unspecified duration PROTEIN, TOTAL 7.3 g/dL Normal (applies [facility] to non-numeric (Ammir results) Lucila Physician) Microalbumin 4.1 g/dL Normal (applies [facility] [Mass/time] in to non-numeric (Ammir Urine collected results) Lucila for unspecified Physician) duration Globulin 3.2 g/dL Normal (applies [facility] [Mass/time] in (calc) to non-numeric (Ammir 24 hour Urine results) Lucila Physician) ALBUMIN/GLOBULIN 1.3 Normal (applies [facility] RATIO (calc) to non-numeric (Ammir results) Lucila Physician) BILIRUBIN,TOTAL 0.7 Normal (applies [facility] mg/dL to non-numeric (Ammir results) Lucila Physician) Alkaline 65 U/L Normal (applies [facility] phosphatase to non-numeric (Ammir [Enzymatic results) Lucila activity/volume] Physician) in Serum, Plasma or Blood AST 25 U/L Normal (applies [facility] to non-numeric (Ammir results) Lucila Physician) ALT 30 U/L Normal (applies [facility] to non-numeric (Ammir results) Lucila Physician) EGFR NON AFR 77 Normal (applies [facility] MALDIVIAN mL/min/1 to non-numeric (Ammir .73m2 results) Lucila Physician) EGFR 89 Normal (applies [facility] MALDIVIAN mL/min/1 to non-numeric (Ammir .73m2 results) Lucila Physician) ID Date Data Source [id number] 01/01/2019 12:00:00 AM EDT [facility] (Ammir Lucila Physician) Name Value Range Interpretation Description Data Sup porting Code Source(s) Document(s ) VITAMIN D, 18 ng/mL Below low normal [facility] (Ammi r 25-OH, TOTAL Lucila Physician) VITAMIN D, 5 ng/mL Normal (applies to [facility] (Am brooks 25-OH, D3 non-numeric Lucila results) Physician) VITAMIN D, 13 ng/mL Normal (applies to [facility] (Am brooks 25-OH, D2 non-numeric Lucila results) Physician) ID Date Data Source [id number] 01/01/2019 12:00:00 AM EDT [facility] (Ammir Lucila Physician) Name Value Range Interpretation Description Data Sup porting Code Source(s) Document(s ) WBC 12.2 Above high normal [facility] Thousand/ (Ammir uL Lucila Physician) RBC 4.77 Normal (applies to [facility] Million/u non-numeric (Ammir L results) Lucila Physician) Hemoglobin 13.8 g/dL Normal (applies to [facility] [Mass/volume] non-numeric (Ammir in Mixed results) Lucila venous blood Physician) by Oximetry MCV 85.5 fL Normal (applies to [facility] non-numeric (Ammir results) Lucila Physician) Hematocrit 40.8 % Normal (applies to [facility] [Pure volume non-numeric (Ammir fraction] of results) Lucila Blood by Physician) Automated count MCH 28.9 pg Normal (applies to [facility] non-numeric (Ammir results) Lucila Physician) MCHC 33.8 g/dL Normal (applies to [facility] non-numeric (Ammir results) Lucila Physician) RDW 13.1 % Normal (applies to [facility] non-numeric (Ammir results) Lucila Physician) PLATELET COUNT 282 Normal (applies to [facility] Thousand/ non-numeric (Ammir uL results) Lucila Physician) MPV 11.1 fL Normal (applies to [facility] non-numeric (Ammir results) Lucila Physician) ID Date Data Source [id number] 01/01/2019 12:00:00 AM EDT [facility] (Ammir Lucila Physician) Name Value Range Interpretation Description Data Sup porting Code Source(s) Document(s ) Glucose 131 Normal (applies [facility] [Mass/volume] in mg/dL to non-numeric (Ammir Urine collected results) Lucila for unspecified Physician) duration Sodium 140 Normal (applies [facility] [Moles/volume] mmol/L to non-numeric (Ammir in Serum, Plasma results) Lucila or Blood Physician) Potassium 3.9 Normal (applies [facility] [Mass/volume] in mmol/L to non-numeric (Ammir Blood results) Lucila Physician) Chloride 100 Normal (applies [facility] [Moles/volume] mmol/L to non-numeric (Ammir in Serum, Plasma results) Lucila or Blood Physician) Carbon dioxide 32 Normal (applies [facility] [VFr/PPres] in mmol/L to non-numeric (Ammir Gas delivery results) Lucila system Physician) Urea nitrogen 15 mg/dL Normal (applies [facility] [Moles/volume] to non-numeric (Ammir in Blood results) Lucila Physician) Creatinine 0.96 Normal (applies [facility] [Interpretation] mg/dL to non-numeric (Ammir in Urine results) Lucila Physician) BUN/CREATININE NOTE Normal (applies [facility] RATIO to non-numeric (Ammir results) Lucila Physician) Calcium 10.0 Normal (applies [facility] [Moles/volume] mg/dL to non-numeric (Ammir in Urine results) Lucila collected for Physician) unspecified duration PROTEIN, TOTAL 7.3 g/dL Normal (applies [facility] to non-numeric (Ammir results) Lucila Physician) Microalbumin 4.1 g/dL Normal (applies [facility] [Mass/time] in to non-numeric (Ammir Urine collected results) Lucila for unspecified Physician) duration Globulin 3.2 g/dL Normal (applies [facility] [Mass/time] in (calc) to non-numeric (Ammir 24 hour Urine results) Lucila Physician) ALBUMIN/GLOBULIN 1.3 Normal (applies [facility] RATIO (calc) to non-numeric (Ammir results) Lucila Physician) BILIRUBIN,TOTAL 0.7 Normal (applies [facility] mg/dL to non-numeric (Ammir results) Lucila Physician) Alkaline 65 U/L Normal (applies [facility] phosphatase to non-numeric (Ammir [Enzymatic results) Lucila activity/volume] Physician) in Serum, Plasma or Blood AST 25 U/L Normal (applies [facility] to non-numeric (Ammir results) Lucila Physician) ALT 30 U/L Normal (applies [facility] to non-numeric (Ammir results) Lucila Physician) EGFR NON AFR 77 Normal (applies [facility] MALDIVIAN mL/min/1 to non-numeric (Ammir .73m2 results) Lucila Physician) EGFR 89 Normal (applies [facility] MALDIVIAN mL/min/1 to non-numeric (Ammir .73m2 results) Lucila Physician) ID Date Data Source [id number] 01/01/2019 12:00:00 AM EDT [facility] (Ammir Lucila Physician) Name Value Range Interpretation Description Data Sup porting Code Source(s) Document(s ) VITAMIN D, 18 ng/mL Below low normal [facility] (Ammi r 25-OH, TOTAL Lucila Physician) VITAMIN D, 5 ng/mL Normal (applies to [facility] (Am brooks 25-OH, D3 non-numeric Lucila results) Physician) VITAMIN D, 13 ng/mL Normal (applies to [facility] (Am brooks 25-OH, D2 non-numeric Lucila results) Physician) ID Date Data Source [id number] 01/01/2019 12:00:00 AM EDT [facility] (Ammir Lucila Physician) Name Value Range Interpretation Description Data Sup porting Code Source(s) Document(s ) Hemoglobin A1c 7.4 % of Above high normal [facility] in Blood total Hgb (Ammir Lucila Physician) ID Date Data Source [id number] 01/01/2019 12:00:00 AM EDT [facility] (Ammir Lucila Physician) Name Value Range Interpretation Description Data Sup porting Code Source(s) Document(s ) WBC 12.2 Above high normal [facility] Thousand/ (Ammir uL Lucila Physician) RBC 4.77 Normal (applies to [facility] Million/u non-numeric (Ammir L results) Lucila Physician) Hemoglobin 13.8 g/dL Normal (applies to [facility] [Mass/volume] non-numeric (Ammir in Mixed results) Lucila venous blood Physician) by Oximetry Hematocrit 40.8 % Normal (applies to [facility] [Pure volume non-numeric (Ammir fraction] of results) Lucila Blood by Physician) Automated count MCV 85.5 fL Normal (applies to [facility] non-numeric (Ammir results) Lucila Physician) MCH 28.9 pg Normal (applies to [facility] non-numeric (Ammir results) Lucila Physician) MCHC 33.8 g/dL Normal (applies to [facility] non-numeric (Ammir results) Lucila Physician) RDW 13.1 % Normal (applies to [facility] non-numeric (Ammir results) Lucila Physician) PLATELET COUNT 282 Normal (applies to [facility] Thousand/ non-numeric (Ammir uL results) Lucila Physician) MPV 11.1 fL Normal (applies to [facility] non-numeric (Ammir results) Lucila Physician) ID Date Data Source [id number] 01/01/2019 12:00:00 AM EDT [facility] (Ammir Lucila Physician) Name Value Range Interpretation Description Data Sup porting Code Source(s) Document(s ) Glucose 131 Normal (applies [facility] [Mass/volume] in mg/dL to non-numeric (Ammir Urine collected results) Lucila for unspecified Physician) duration Sodium 140 Normal (applies [facility] [Moles/volume] mmol/L to non-numeric (Ammir in Serum, Plasma results) Lucila or Blood Physician) Potassium 3.9 Normal (applies [facility] [Mass/volume] in mmol/L to non-numeric (Ammir Blood results) Lucila Physician) Chloride 100 Normal (applies [facility] [Moles/volume] mmol/L to non-numeric (Ammir in Serum, Plasma results) Lucila or Blood Physician) Carbon dioxide 32 Normal (applies [facility] [VFr/PPres] in mmol/L to non-numeric (Ammir Gas delivery results) Lucila system Physician) Urea nitrogen 15 mg/dL Normal (applies [facility] [Moles/volume] to non-numeric (Ammir in Blood results) Lucila Physician) Creatinine 0.96 Normal (applies [facility] [Interpretation] mg/dL to non-numeric (Ammir in Urine results) Lucila Physician) BUN/CREATININE NOTE Normal (applies [facility] RATIO to non-numeric (Ammir results) Lucila Physician) Calcium 10.0 Normal (applies [facility] [Moles/volume] mg/dL to non-numeric (Ammir in Urine results) Lucila collected for Physician) unspecified duration PROTEIN, TOTAL 7.3 g/dL Normal (applies [facility] to non-numeric (Ammir results) Lucila Physician) Microalbumin 4.1 g/dL Normal (applies [facility] [Mass/time] in to non-numeric (Ammir Urine collected results) Lucila for unspecified Physician) duration Globulin 3.2 g/dL Normal (applies [facility] [Mass/time] in (calc) to non-numeric (Ammir 24 hour Urine results) Lucila Physician) ALBUMIN/GLOBULIN 1.3 Normal (applies [facility] RATIO (calc) to non-numeric (Ammir results) Lucila Physician) BILIRUBIN,TOTAL 0.7 Normal (applies [facility] mg/dL to non-numeric (Ammir results) Lucila Physician) Alkaline 65 U/L Normal (applies [facility] phosphatase to non-numeric (Ammir [Enzymatic results) Lucila activity/volume] Physician) in Serum, Plasma or Blood AST 25 U/L Normal (applies [facility] to non-numeric (Ammir results) Lucila Physician) ALT 30 U/L Normal (applies [facility] to non-numeric (Ammir results) Lucila Physician) EGFR NON AFR 77 Normal (applies [facility] MALDIVIAN mL/min/1 to non-numeric (Ammir .73m2 results) Lucila Physician) EGFR 89 Normal (applies [facility] MALDIVIAN mL/min/1 to non-numeric (Ammir .73m2 results) Lucila Physician) ID Date Data Source [id number] 01/01/2019 12:00:00 AM EDT [facility] (Ammir Lucila Physician) Name Value Range Interpretation Description Data Sup porting Code Source(s) Document(s ) VITAMIN D, 18 ng/mL Below low normal [facility] (Ammi r 25-OH, TOTAL Lucila Physician) VITAMIN D, 5 ng/mL Normal (applies to [facility] (Am brooks 25-OH, D3 non-numeric Lucila results) Physician) VITAMIN D, 13 ng/mL Normal (applies to [facility] (Am brooks 25-OH, D2 non-numeric Lucila results) Physician) ID Date Data Source [id number] 01/01/2019 12:00:00 AM EDT [facility] (Ammir Lucila Physician) Name Value Range Interpretation Description Data Sup porting Code Source(s) Document(s ) Hemoglobin A1c 7.4 % of Above high normal [facility] in Blood total Hgb (Ammir Lucila Physician) ID Date Data Source [id number] 01/01/2019 12:00:00 AM EDT [facility] (Ammir Lucila Physician) Name Value Range Interpretation Description Data Sup porting Code Source(s) Document(s ) WBC 12.2 Above high normal [facility] Thousand/ (Ammir uL Lucila Physician) RBC 4.77 Normal (applies to [facility] Million/u non-numeric (Ammir L results) Lucila Physician) Hemoglobin 13.8 g/dL Normal (applies to [facility] [Mass/volume] non-numeric (Ammir in Mixed results) Lucila venous blood Physician) by Oximetry Hematocrit 40.8 % Normal (applies to [facility] [Pure volume non-numeric (Ammir fraction] of results) Lucila Blood by Physician) Automated count MCV 85.5 fL Normal (applies to [facility] non-numeric (Ammir results) Lucila Physician) MCH 28.9 pg Normal (applies to [facility] non-numeric (Ammir results) Lucila Physician) MCHC 33.8 g/dL Normal (applies to [facility] non-numeric (Ammir results) Lucila Physician) RDW 13.1 % Normal (applies to [facility] non-numeric (Ammir results) Lucila Physician) PLATELET COUNT 282 Normal (applies to [facility] Thousand/ non-numeric (Ammir uL results) Lucila Physician) MPV 11.1 fL Normal (applies to [facility] non-numeric (Ammir results) Lucila Physician) ID Date Data Source [id number] 01/01/2019 12:00:00 AM EDT [facility] (Ammir Lucila Physician) Name Value Range Interpretation Description Data Sup porting Code Source(s) Document(s ) Glucose 131 Normal (applies [facility] [Mass/volume] in mg/dL to non-numeric (Ammir Urine collected results) Lucila for unspecified Physician) duration Sodium 140 Normal (applies [facility] [Moles/volume] mmol/L to non-numeric (Ammir in Serum, Plasma results) Lucila or Blood Physician) Potassium 3.9 Normal (applies [facility] [Mass/volume] in mmol/L to non-numeric (Ammir Blood results) Lucila Physician) Carbon dioxide 32 Normal (applies [facility] [VFr/PPres] in mmol/L to non-numeric (Ammir Gas delivery results) Lucila system Physician) Chloride 100 Normal (applies [facility] [Moles/volume] mmol/L to non-numeric (Ammir in Serum, Plasma results) Lucila or Blood Physician) Urea nitrogen 15 mg/dL Normal (applies [facility] [Moles/volume] to non-numeric (Ammir in Blood results) Lucila Physician) Creatinine 0.96 Normal (applies [facility] [Interpretation] mg/dL to non-numeric (Ammir in Urine results) Lucila Physician) BUN/CREATININE NOTE Normal (applies [facility] RATIO to non-numeric (Ammir results) Lucila Physician) Calcium 10.0 Normal (applies [facility] [Moles/volume] mg/dL to non-numeric (Ammir in Urine results) Lucila collected for Physician) unspecified duration PROTEIN, TOTAL 7.3 g/dL Normal (applies [facility] to non-numeric (Ammir results) Lucila Physician) Globulin 3.2 g/dL Normal (applies [facility] [Mass/time] in (calc) to non-numeric (Ammir 24 hour Urine results) Lucila Physician) Microalbumin 4.1 g/dL Normal (applies [facility] [Mass/time] in to non-numeric (Ammir Urine collected results) Lucila for unspecified Physician) duration ALBUMIN/GLOBULIN 1.3 Normal (applies [facility] RATIO (calc) to non-numeric (Ammir results) Lucila Physician) BILIRUBIN,TOTAL 0.7 Normal (applies [facility] mg/dL to non-numeric (Ammir results) Lucila Physician) Alkaline 65 U/L Normal (applies [facility] phosphatase to non-numeric (Ammir [Enzymatic results) Lucila activity/volume] Physician) in Serum, Plasma or Blood AST 25 U/L Normal (applies [facility] to non-numeric (Ammir results) Lucila Physician) ALT 30 U/L Normal (applies [facility] to non-numeric (Ammir results) Lucila Physician) EGFR 89 Normal (applies [facility] MALDIVIAN mL/min/1 to non-numeric (Ammir .73m2 results) Lucila Physician) EGFR NON AFR 77 Normal (applies [facility] MALDIVIAN mL/min/1 to non-numeric (Ammir .73m2 results) Lucila Physician) Procedure Social History Code Duration Value Status Description Data Source(s ) Smoking 02/12/2020 no history of completed no history of [facility] ( Ammir 12:00:00 AM EDT alcohol abuse, alcohol abuse, R john Physician) Patient tobacco Patient tobacco use: patient is use: patient is a a former smoker former smoker Smoking 02/12/2020 Unknown if ever completed Unknown if ever [facility] EN (Ammir 12:00:00 AM EDT smoked smoked Lucila Ph ysician) Smoking 02/07/2020 no history of completed no history of [facility] ( Ammir 12:00:00 AM EDT alcohol abuse, alcohol abuse, R john Physician) Patient tobacco Patient tobacco use: patient is use: patient is a a former smoker former smoker Smoking 02/07/2020 Unknown if ever completed Unknown if ever [facility] EN (Ammir 12:00:00 AM EDT smoked smoked Lucila Ph ysician) Smoking 02/07/2020 no history of completed no history of [facility] ( Ammir 12:00:00 AM EDT alcohol abuse, alcohol abuse, R john Physician) Patient tobacco Patient tobacco use: patient is use: patient is a a former smoker former smoker Smoking 02/07/2020 Unknown if ever completed Unknown if ever [facility] EN (Ammir 12:00:00 AM EDT smoked smoked Lucila Ph ysician) Smoking 01/17/2020 no history of completed no history of [facility] ( Ammir 12:00:00 AM EDT alcohol abuse, alcohol abuse, R john Physician) Patient tobacco Patient tobacco use: patient is use: patient is a a former smoker former smoker Smoking 01/17/2020 Unknown if ever completed Unknown if ever [facility] EN (Ammir 12:00:00 AM EDT smoked smoked Lucila Ph ysician) Smoking 01/02/2020 no history of completed no history of [facility] ( Ammir 12:00:00 AM EDT alcohol abuse, alcohol abuse, R john Physician) Patient tobacco Patient tobacco use: patient is use: patient is a a former smoker former smoker Smoking 01/02/2020 Unknown if ever completed Unknown if ever [facility] EN (Ammir 12:00:00 AM EDT smoked smoked Lucila Ph ysician) Vital Signs ID Date Data Source [id number] Name Value Range Interpretation Code Description Data Source(s) Heart rate 75 /min 75 /min [facility] (Ammir Lucila Physician) Body temperature 97.8 F 97.8 F [facility] ( Ammir Lucila Physician) Inhaled oxygen 95 % 95 % [facility] (Am brooks concentration Lucila Physician) Body mass index 31.1 kg/m2 31.1 kg/m2 [facility] (A mmir (BMI) [Ratio] Lucila Physician) Diastolic blood 70 mm[Hg] 70 mm[Hg] [facility] (A mmir pressure Lucila Physician) Systolic blood 128 mm[Hg] 128 mm[Hg] [facility] (Am brooks pressure Lucila Physician) Body weight 242 lb 242 lb [facility] (Ammir Lucila Physician) Body height 74 in 74 in [facility] (Ammir Lucila Physician) Heart rate 75 /min 75 /min [facility] (Ammir Lucila Physician) Body temperature 97.8 F 97.8 F [facility] ( Ammir Lucila Physician) Inhaled oxygen 95 % 95 % [facility] (Am brooks concentration Lucila Physician) Body mass index 31.1 kg/m2 31.1 kg/m2 [facility] (A mmir (BMI) [Ratio] Lucila Physician) Diastolic blood 70 mm[Hg] 70 mm[Hg] [facility] (A mmir pressure Lucila Physician) Systolic blood 128 mm[Hg] 128 mm[Hg] [facility] (Am brooks pressure Lucila Physician) Body weight 242 lb 242 lb [facility] (Ammir Lucila Physician) Body height 74 in in [facility] (Ammir Lucila Physician) Heart rate 75 /min 75 /min [facility] (Ammir Lucila Physician) Body temperature 97.8 F 97.8 F [facility] ( Ammir Lucila Physician) Inhaled oxygen 95 % 95 % [facility] (Am brooks concentration Lucila Physician) Body mass index 31.1 kg/m2 31.1 kg/m2 [facility] (A mmir (BMI) [Ratio] Lucila Physician) Diastolic blood 60 mm[Hg] 60 mm[Hg] [facility] (A mmir pressure Lucila Physician) Systolic blood 120 mm[Hg] 120 mm[Hg] [facility] (Am brooks pressure Lucila Physician) Body weight 242 lb 242 lb [facility] (Ammir Lucila Physician) Body height 74 in in [facility] (Ammir Lucila Physician) Heart rate 70 /min 70 /min [facility] (Ammir Lucila Physician) Body temperature 98.4 F 98.4 F [facility] ( Ammir Lucila Physician) Inhaled oxygen 97 % 97 % [facility] (Am brooks concentration Lucila Physician) Body mass index 30.4 kg/m2 30.4 kg/m2 [facility] (A mmir (BMI) [Ratio] Lucila Physician) Diastolic blood 60 mm[Hg] 60 mm[Hg] [facility] (A mmir pressure Lucila Physician) Systolic blood 120 mm[Hg] 120 mm[Hg] [facility] (Am brooks pressure Lucila Physician) Body weight 237 lb 237 lb [facility] (Ammir Lucila Physician) Body height 74 in 74 in [facility] (Ammir Lucila Physician) Heart rate 70 /min 70 /min [facility] (Ammir Lucila Physician) Body temperature 98.4 F 98.4 F [facility] ( Ammir Lucila Physician) Inhaled oxygen 97 % 97 % [facility] (Am brooks concentration Lucila Physician) Body mass index 30.4 kg/m2 30.4 kg/m2 [facility] (A mmir (BMI) [Ratio] Lucila Physician) Diastolic blood 60 mm[Hg] 60 mm[Hg] [facility] (A mmir pressure Lucila Physician) Systolic blood 120 mm[Hg] 120 mm[Hg] [facility] (Am brooks pressure Lucila Physician) Body weight 237 lb 237 lb [facility] (Ammir Lucila Physician) Body height 74 in 74 in [facility] (Ammir Lucila Physician) Heart rate 70 /min 70 /min [facility] (Ammir Lucila Physician) Body temperature 98.4 F 98.4 F [facility] ( Ammir Lucila Physician) Inhaled oxygen 97 % 97 % [facility] (Am brooks concentration Lucila Physician) Body mass index 30.4 kg/m2 30.4 kg/m2 [facility] (A mmir (BMI) [Ratio] Lucila Physician) Diastolic blood 60 mm[Hg] 60 mm[Hg] [facility] (A mmir pressure Lucila Physician) Systolic blood 120 mm[Hg] 120 mm[Hg] [facility] (Am brooks pressure Lucila Physician) Body weight 237 lb 237 lb [facility] (Ammir Lucila Physician) Body height 74 in 74 in [facility] (Ammir Lucila Physician) Heart rate 70 /min 70 /min [facility] (Ammir Lucila Physician) Body temperature 98.4 F 98.4 F [facility] ( Ammir Lucila Physician) Inhaled oxygen 97 % 97 % [facility] (Am brooks concentration Lucila Physician) Body mass index 30.4 kg/m2 30.4 kg/m2 [facility] (A mmir (BMI) [Ratio] Lucila Physician) Diastolic blood 60 mm[Hg] 60 mm[Hg] [facility] (A mmir pressure Lucila Physician) Systolic blood 120 mm[Hg] 120 mm[Hg] [facility] (Am brooks pressure Lucila Physician) Body weight 237 lb 237 lb [facility] (Ammir Lucila Physician) Body height 74 in 74 in [facility] (Ammir Lucila Physician) Heart rate 70 /min 70 /min [facility] (Ammir Lucila Physician) Body temperature 98.4 F 98.4 F [facility] ( Ammir Lucila Physician) Inhaled oxygen 97 % 97 % [facility] (Am brooks concentration Lucila Physician) Body mass index 30.4 kg/m2 30.4 kg/m2 [facility] (A mmir (BMI) [Ratio] Lucila Physician) Diastolic blood 60 mm[Hg] 60 mm[Hg] [facility] (A mmir pressure Lucila Physician) Systolic blood 120 mm[Hg] 120 mm[Hg] [facility] (Am brooks pressure Lucila Physician) Body weight 237 lb 237 lb [facility] (Ammir Lucila Physician) Body height 74 in 74 in [facility] (Ammir Lucila Physician) Heart rate 71 /min 71 /min [facility] (Ammir Lucila Physician) Body temperature 98.4 F 98.4 F [facility] ( Ammir Lucila Physician) Inhaled oxygen 97 % 97 % [facility] (Am brooks concentration Lucila Physician) Body mass index 30.4 kg/m2 30.4 kg/m2 [facility] (A mmir (BMI) [Ratio] [facility]) Diastolic blood 64 mm[Hg] 64 mm[Hg] [facility] (A mmir pressure [facility]) Systolic blood 120 mm[Hg] 120 mm[Hg] [facility] ([facility] pressure [facility]) Body weight 237 lb 237 lb [facility] ([facility]) Body height 74 in 74 in [facility] ([facility]) Heart rate 71 /min 71 /min [facility] ([facility]) Body temperature 98.4 F 98.4 F [facility] ( A[facility]) Inhaled oxygen 97 % 97 % [facility] ([facility] concentration [facility]) Body mass index 30.4 kg/m2 30.4 kg/m2 [facility] (A mmir (BMI) [Ratio] [facility]) Diastolic blood 64 mm[Hg] 64 mm[Hg] [facility] (A mm[facility] pressure [facility]) Systolic blood 120 mm[Hg] 120 mm[Hg] [facility] ([facility] pressure [facility]) Body weight 237 lb 237 lb [facility] ([facility]mm[facility]) Body height 74 in 74 in [facility] (Amm[facility]) Heart rate 71 /min 71 /min [facility] (Ammir Luclia Physician) Body temperature 98.4 F 98.4 F [facility] ( Amm[facility]) Inhaled oxygen 97 % 97 % [facility] ([facility]) Body mass index 30.4 kg/m2 30.4 kg/m2 [facility] (A mmir (BMI) [Ratio] [facility]) Diastolic blood 64 mm[Hg] 64 mm[Hg] [facility] (A mmir pressure [facility]) Systolic blood 120 mm[Hg] 120 mm[Hg] [facility] ([facility] pressure [facility]) Body weight 237 lb 237 lb [facility] ([facility]mm[facility]) Body height 74 in 74 in [facility] ([facility]mm[facility]) Heart rate 71 /min 71 /min [facility] (Amm[facility]) Body temperature 98.4 F 98.4 F [facility] ( Amm[facility]) Inhaled oxygen 97 % 97 % [facility] ([facility] concentration [facility]) Body mass index 30.4 kg/m2 30.4 kg/m2 [facility] (A mmir (BMI) [Ratio] [facility]) Diastolic blood 64 mm[Hg] 64 mm[Hg] [facility] (A mm[facility] pressure [facility]) Systolic blood 120 mm[Hg] 120 mm[Hg] [facility] ([facility] pressure [facility]) Body weight 237 lb 237 lb [facility] (Amm[facility]) Body height 74 in 74 in [facility] (Amm[facility]) Heart rate 71 /min 71 /min [facility] (Amm[facility]) Body temperature 98.4 F 98.4 F [facility] ( Ammir [facility]) Inhaled oxygen 97 % 97 % [facility] ([facility] concentration [facility]) Body mass index 30.4 kg/m2 30.4 kg/m2 [facility] (A mmir (BMI) [Ratio] [facility]) Diastolic blood 64 mm[Hg] 64 mm[Hg] [facility] (A mmir pressure [facility]) Systolic blood 120 mm[Hg] 120 mm[Hg] [facility] ([facility] pressure [facility]) Body weight 237 lb 237 lb [facility] ([facility]mm[facility]) Body height 74 in 74 in [facility] ([facility]mm[facility]) Heart rate 71 /min 71 /min [facility] (Amm[facility]) Body temperature 98.4 F 98.4 F [facility] ( Amm[facility]) Inhaled oxygen 97 % 97 % [facility] ([facility]) Body mass index 30.4 kg/m2 30.4 kg/m2 [facility] (A mmir (BMI) [Ratio] [facility]) Diastolic blood 64 mm[Hg] 64 mm[Hg] [facility] (A mm[facility] pressure [facility]) Systolic blood 120 mm[Hg] 120 mm[Hg] [facility] ([facility] pressure [facility]) Body weight 237 lb 237 lb [facility] (Amm[facility]) Body height 74 in 74 in [facility] (Amm[facility]) Heart rate 71 /min 71 /min [facility] (Amm[facility]) Body temperature 98.4 F 98.4 F [facility] ( Ammir [facility]) Inhaled oxygen 97 % 97 % [facility] ([facility]) Body mass index 30.4 kg/m2 30.4 kg/m2 [facility] (A mmir (BMI) [Ratio] [facility]) Diastolic blood 64 mm[Hg] 64 mm[Hg] [facility] (A mm[facility] pressure [facility]) Systolic blood 120 mm[Hg] 120 mm[Hg] [facility] ([facility] pressure [facility]) Body weight 237 lb 237 lb [facility] (Amm[facility]) Body height 74 in 74 in [facility] (Ammir [facility]) Heart rate 71 /min 71 /min [facility] (Amm[facility]) Body temperature 98.4 F 98.4 F [facility] ( Ammir [facility]) Inhaled oxygen 97 % 97 % [facility] ([facility] concentration [facility]) Body mass index 30.4 kg/m2 30.4 kg/m2 [facility] (A mmir (BMI) [Ratio] [facility]) Diastolic blood 64 mm[Hg] 64 mm[Hg] [facility] (A mm[facility] pressure [facility]) Systolic blood 120 mm[Hg] 120 mm[Hg] [facility] ([facility] pressure [facility]) Body weight 237 lb 237 lb [facility] ([facility]mm[facility]) Body height 74 in 74 in [facility] (Amm[facility]) Heart rate 71 /min 71 /min [facility] (Ammir [facility]) Body temperature 98.4 F 98.4 F [facility] ( Ammir [facility]) Inhaled oxygen 97 % 97 % [facility] ([facility] concentration [facility]) Body mass index 30.4 kg/m2 30.4 kg/m2 [facility] (A mmir (BMI) [Ratio] [facility]) Diastolic blood 64 mm[Hg] 64 mm[Hg] [facility] (A mm[facility] pressure [facility]) Systolic blood 120 mm[Hg] 120 mm[Hg] [facility] ([facility] pressure [facility]) Body weight 237 lb 237 lb [facility] (Ammir [facility]ician) Body height 74 in 74 in [facility] (Ammir [facility]) Heart rate 71 /min 71 /min [facility] (Ammir [facility]) Body temperature 98.4 F 98.4 F [facility] ( Ammir [facility]ician) Inhaled oxygen 97 % 97 % [facility] ([facility] concentration [facility]) Body mass index 30.4 kg/m2 30.4 kg/m2 [facility] (A mmir (BMI) [Ratio] [facility]) Diastolic blood 64 mm[Hg] 64 mm[Hg] [facility] (A mmir pressure [facility]) Systolic blood 120 mm[Hg] 120 mm[Hg] [facility] ([facility] pressure [facility]) Body weight 237 lb 237 lb [facility] (Ammir [facility]) Body height 74 in 74 in [facility] (Ammir [facility]) Heart rate 71 /min 71 /min [facility] (Ammir [facility]) Body temperature 98.4 F 98.4 F [facility] ( Ammir [facility]) Inhaled oxygen 97 % 97 % [facility] ([facility] concentration [facility]) Diastolic blood 75 mm[Hg] 75 mm[Hg] [facility] (A mmir pressure [facility]) Systolic blood 134 mm[Hg] 134 mm[Hg] [facility] ([facility] pressure [facility]) Heart rate 71 /min 71 /min [facility] (Amm[facility]) Body temperature 98.4 F 98.4 F [facility] ( Ammir [facility]) Inhaled oxygen 97 % 97 % [facility] ([facility] concentration [facility]) Diastolic blood 75 mm[Hg] 75 mm[Hg] [facility] (A mmir pressure [facility]) Systolic blood 134 mm[Hg] 134 mm[Hg] [facility] ([facility] pressure [facility]) Systolic blood 134 mm[Hg] 134 mm[Hg] [facility] ([facility] pressure [facility]) Heart rate 71 /min 71 /min [facility] (Amm[facility]) Body temperature 98.4 F 98.4 F [facility] ( Ammir [facility]) Inhaled oxygen 97 % 97 % [facility] ([facility] concentration [facility]) Diastolic blood 75 mm[Hg] 75 mm[Hg] [facility] (A mm[facility] pressure [facility]) Heart rate 71 /min 71 /min [facility] (Ammir [facility]) Body temperature 98.4 F 98.4 F [facility] ( Ammir Lucila [facility]ician) Inhaled oxygen 97 % 97 % [facility] ([facility] concentration [facility]) Diastolic blood 75 mm[Hg] 75 mm[Hg] [facility] (A mm[facility] pressure [facility]) Systolic blood 134 mm[Hg] 134 mm[Hg] [facility] ([facility] pressure [facility]) Heart rate 71 /min 71 /min [facility] (Ammir [facility]) Body temperature 98.4 F 98.4 F [facility] ( Ammir Lucila [facility]ician) Inhaled oxygen 97 % 97 % [facility] ([facility] concentration [facility]) Diastolic blood 75 mm[Hg] 75 mm[Hg] [facility] (A mm[facility] pressure [facility]) Systolic blood 134 mm[Hg] 134 mm[Hg] [facility] ([facility] pressure [facility]) Heart rate 70 /min 70 /min [facility] (Ammir [facility]) Body temperature 98.1 F 98.1 F [facility] ( Ammir Lucila [facility]ician) Inhaled oxygen 97 % 97 % [facility] ([facility] concentration [facility]) Diastolic blood 80 mm[Hg] 80 mm[Hg] [facility] (A mm[facility] pressure [facility]) Systolic blood 142 mm[Hg] 142 mm[Hg] [facility] ([facility] pressure [facility]) Body weight 236 lb 236 lb [facility] (Ammir [facility]ician) Heart rate 70 /min 70 /min [facility] (Ammir [facility]) Body temperature 98.1 F 98.1 F [facility] ( Ammir Lucila [facility]ician) Inhaled oxygen 97 % 97 % [facility] ([facility] concentration [facility]) Diastolic blood 80 mm[Hg] 80 mm[Hg] [facility] (A mm[facility] pressure [facility]) Systolic blood 142 mm[Hg] 142 mm[Hg] [facility] ([facility] pressure [facility]) Body weight 236 lb 236 lb [facility] (Ammir [facility]) Heart rate 70 /min 70 /min [facility] (Ammir [facility]) Body temperature 98.1 F 98.1 F [facility] ( Ammir [facility]ician) Inhaled oxygen 97 % 97 % [facility] ([facility] concentration [facility]) Diastolic blood 80 mm[Hg] 80 mm[Hg] [facility] (A mm[facility] pressure [facility]) Systolic blood 142 mm[Hg] 142 mm[Hg] [facility] ([facility] pressure [facility]) Body weight 236 lb 236 lb [facility] (Ammir [facility]) Heart rate 70 /min 70 /min [facility] (Ammir [facility]) Body temperature 98.1 F 98.1 F [facility] ( Ammir [facility]) Inhaled oxygen 97 % 97 % [facility] ([facility] concentration [facility]) Diastolic blood 80 mm[Hg] 80 mm[Hg] [facility] (A mm[facility] pressure [facility]) Systolic blood 142 mm[Hg] 142 mm[Hg] [facility] ([facility] pressure [facility]) Body weight 236 lb 236 lb [facility] (Ammir [facility]) Heart rate 70 /min 70 /min [facility] (Ammir [facility]) Body temperature 98.1 F 98.1 F [facility] ( Ammir [facility]) Inhaled oxygen 97 % 97 % [facility] ([facility] concentration [facility]) Diastolic blood 80 mm[Hg] 80 mm[Hg] [facility] (A mm[facility] pressure [facility]) Systolic blood 142 mm[Hg] 142 mm[Hg] [facility] ([facility] pressure [facility]) Body weight 236 lb 236 lb [facility] (Ammir [facility]) Heart rate 60 /min 60 /min [facility] (Ammir [facility]) Body temperature 98.4 F 98.4 F [facility] ( Ammir [facility]ician) Inhaled oxygen 98 % 98 % [facility] ([facility] concentration [facility]) Body mass index 29.5 kg/m2 29.5 kg/m2 [facility] (A mmir (BMI) [Ratio] [facility]) Diastolic blood 68 mm[Hg] 68 mm[Hg] [facility] (A mm[facility] pressure [facility]) Systolic blood 122 mm[Hg] 122 mm[Hg] [facility] ([facility] pressure [facility]) Body weight 230 lb 230 lb [facility] (Ammir [facility]) Body height 74 in 74 in [facility] (Ammir [facility]ila [facility]ician) Heart rate 60 /min 60 /min [facility] (Ammir [facility]ician) Body temperature 98.4 F 98.4 F [facility] ( Ammir [facility]ila [facility]ician) Inhaled oxygen 98 % 98 % [facility] ([facility] concentration [facility]) Body mass index 29.5 kg/m2 29.5 kg/m2 [facility] (A mmir (BMI) [Ratio] [facility]) Diastolic blood 68 mm[Hg] 68 mm[Hg] [facility] (A mmir pressure [facility]) Systolic blood 122 mm[Hg] 122 mm[Hg] [facility] ([facility] pressure [facility]) Body weight 230 lb 230 lb [facility] (Ammir [facility]) Body height 74 in 74 in [facility] (Ammir Lucila [facility]ician) Heart rate 60 /min 60 /min [facility] (Ammir [facility]ician) Body temperature 98.4 F 98.4 F [facility] ( Ammir Lucila [facility]ician) Inhaled oxygen 98 % 98 % [facility] ([facility] concentration [facility]) Body mass index 29.5 kg/m2 29.5 kg/m2 [facility] (A mmir (BMI) [Ratio] [facility]) Diastolic blood 68 mm[Hg] 68 mm[Hg] [facility] (A mm[facility] pressure [facility]) Systolic blood 122 mm[Hg] 122 mm[Hg] [facility] ([facility] pressure [facility]) Body weight 230 lb 230 lb [facility] (Ammir [facility]) Body height 74 in 74 in [facility] (Ammir [facility]ician) Heart rate 60 /min 60 /min [facility] (Ammir [facility]ician) Body temperature 98.4 F 98.4 F [facility] ( Ammir [facility]ician) Inhaled oxygen 98 % 98 % [facility] ([facility] concentration [facility]) Body mass index 29.5 kg/m2 29.5 kg/m2 [facility] (A mmir (BMI) [Ratio] [facility]) Diastolic blood 68 mm[Hg] 68 mm[Hg] [facility] (A mmir pressure [facility]) Systolic blood 122 mm[Hg] 122 mm[Hg] [facility] ([facility] pressure [facility]) Body weight 230 lb 230 lb [facility] (Ammir [facility]) Body height 74 in 74 in [facility] (Ammir [facility]) Heart rate 60 /min 60 /min [facility] (Ammir [facility]) Body temperature 98.4 F 98.4 F [facility] ( Ammir [facility]) Inhaled oxygen 98 % 98 % [facility] ([facility] concentration [facility]) Body mass index 29.5 kg/m2 29.5 kg/m2 [facility] (A mmir (BMI) [Ratio] [facility]) Diastolic blood 68 mm[Hg] 68 mm[Hg] [facility] (A mmir pressure [facility]) Systolic blood 122 mm[Hg] 122 mm[Hg] [facility] ([facility] pressure [facility]) Body weight 230 lb 230 lb [facility] (Ammir [facility]) Body height 74 in 74 in [facility] (Ammir [facility]) Heart rate 67 /min 67 /min [facility] (Ammir [facility]ila [facility]ician) Inhaled oxygen 96 % 96 % [facility] ([facility] concentration [facility]) Diastolic blood 82 mm[Hg] 82 mm[Hg] [facility] (A mmir pressure [facility]) Systolic blood 136 mm[Hg] 136 mm[Hg] [facility] ([facility] pressure [facility]) Heart rate 67 /min 67 /min [facility] (Ammir [facility]) Inhaled oxygen 96 % 96 % [facility] ([facility] concentration [facility]) Diastolic blood 82 mm[Hg] 82 mm[Hg] [facility] (A mmir pressure [facility]) Systolic blood 136 mm[Hg] 136 mm[Hg] [facility] ([facility] pressure [facility]) Heart rate 67 /min 67 /min [facility] (Ammir [facility]) Inhaled oxygen 96 % 96 % [facility] ([facility] concentration [facility]) Diastolic blood 82 mm[Hg] 82 mm[Hg] [facility] (A mmir pressure [facility]) Systolic blood 136 mm[Hg] 136 mm[Hg] [facility] ([facility] pressure [facility]) Heart rate 67 /min 67 /min [facility] (Ammir [facility]ician) Inhaled oxygen 96 % 96 % [facility] ([facility] concentration [facility]) Diastolic blood 82 mm[Hg] 82 mm[Hg] [facility] (A mmir pressure [facility]) Systolic blood 136 mm[Hg] 136 mm[Hg] [facility] ([facility] pressure [facility]) Heart rate 67 /min 67 /min [facility] (Ammir [facility]ila [facility]ician) Inhaled oxygen 96 % 96 % [facility] ([facility] concentration [facility]) Diastolic blood 82 mm[Hg] 82 mm[Hg] [facility] (A mmir pressure [facility]) Systolic blood 136 mm[Hg] 136 mm[Hg] [facility] ([facility] pressure [facility]) Heart rate 65 /min 65 /min [facility] (Ammir [facility]) Body temperature 98.1 F 98.1 F [facility] ( Ammir [facility]ila [facility]ician) Inhaled oxygen 98 % 98 % [facility] ([facility] concentration [facility]) Diastolic blood 80 mm[Hg] 80 mm[Hg] [facility] (A mmir pressure [facility]) Systolic blood 156 mm[Hg] 156 mm[Hg] [facility] ([facility] pressure [facility]) Body weight 243 lb 243 lb [facility] (Ammir [facility]) Heart rate 65 /min 65 /min [facility] (Ammir [facility]ician) Body temperature 98.1 F 98.1 F [facility] ( Ammir Lucila [facility]ician) Inhaled oxygen 98 % 98 % [facility] ([facility] concentration [facility]) Diastolic blood 80 mm[Hg] 80 mm[Hg] [facility] (A mmir pressure [facility]) Systolic blood 156 mm[Hg] 156 mm[Hg] [facility] ([facility] pressure [facility]) Body weight 243 lb 243 lb [facility] (Ammir [facility]ician) Heart rate 65 /min 65 /min [facility] (Ammir [facility]ician) Body temperature 98.1 F 98.1 F [facility] ( Ammir Lucila [facility]ician) Inhaled oxygen 98 % 98 % [facility] ([facility] concentration [facility]) Diastolic blood 80 mm[Hg] 80 mm[Hg] [facility] (A mmir pressure [facility]) Systolic blood 156 mm[Hg] 156 mm[Hg] [facility] ([facility] pressure [facility]) Body weight 243 lb 243 lb [facility] (Ammir Luc[facility]ician) Heart rate 65 /min 65 /min [facility] (Ammir Lucila [facility]ician) Body temperature 98.1 F 98.1 F [facility] ( Ammir Lucila [facility]ician) Inhaled oxygen 98 % 98 % [facility] ([facility] concentration [facility]) Diastolic blood 80 mm[Hg] 80 mm[Hg] [facility] (A mmir pressure [facility]) Systolic blood 156 mm[Hg] 156 mm[Hg] [facility] ([facility] pressure [facility]) Body weight 243 lb 243 lb [facility] (Ammir [facility]ila [facility]ician) Heart rate 65 /min 65 /min [facility] (Ammir [facility]ician) Body temperature 98.1 F 98.1 F [facility] ( Ammir Lucila [facility]ician) Inhaled oxygen 98 % 98 % [facility] ([facility] concentration [facility]) Diastolic blood 80 mm[Hg] 80 mm[Hg] [facility] (A mmir pressure [facility]) Systolic blood 156 mm[Hg] 156 mm[Hg] [facility] ([facility] pressure [facility]) Body weight 243 lb 243 lb [facility] (Ammir [facility]ician) Heart rate 68 /min 68 /min [facility] (Ammir [facility]ician) Body temperature 98.1 F 98.1 F [facility] ( Ammir Lucila [facility]ician) Inhaled oxygen 98 % 98 % [facility] ([facility] concentration [facility]) Diastolic blood 70 mm[Hg] 70 mm[Hg] [facility] (A mmir pressure [facility]) Systolic blood 136 mm[Hg] 136 mm[Hg] [facility] ([facility] pressure [facility]) Body weight 244 lb 244 lb [facility] (Ammir [facility]ician) Heart rate 68 /min 68 /min [facility] (Ammir [facility]ician) Body temperature 98.1 F 98.1 F [facility] ( Ammir Lucila [facility]ician) Inhaled oxygen 98 % 98 % [facility] ([facility] concentration [facility]) Diastolic blood 70 mm[Hg] 70 mm[Hg] [facility] (A mmir pressure [facility]) Systolic blood 136 mm[Hg] 136 mm[Hg] [facility] ([facility] pressure [facility]) Body weight 244 lb 244 lb [facility] (Ammir [facility]ician) Heart rate 68 /min 68 /min [facility] (Ammir [facility]ician) Body temperature 98.1 F 98.1 F [facility] ( Ammir Lucila [facility]ician) Inhaled oxygen 98 % 98 % [facility] ([facility] concentration [facility]) Diastolic blood 70 mm[Hg] 70 mm[Hg] [facility] (A mmir pressure [facility]) Systolic blood 136 mm[Hg] 136 mm[Hg] [facility] ([facility] pressure [facility]) Body weight 244 lb 244 lb [facility] (Ammir [facility]ician) Heart rate 68 /min 68 /min [facility] (Ammir Lucila [facility]ician) Body temperature 98.1 F 98.1 F [facility] ( Ammir Lucila [facility]ician) Inhaled oxygen 98 % 98 % [facility] ([facility] concentration [facility]) Diastolic blood 70 mm[Hg] 70 mm[Hg] [facility] (A mmir pressure [facility]ician) Systolic blood 136 mm[Hg] 136 mm[Hg] [facility] ([facility] pressure [facility]) Body weight 244 lb 244 lb [facility] (Ammir Lucila [facility]ician) Heart rate 68 /min 68 /min [facility] (Ammir Lucila [facility]ician) Body temperature 98.1 F 98.1 F [facility] ( Ammir Lucila Physician) Inhaled oxygen 98 % 98 % [facility] ([facility] concentration [facility]) Diastolic blood 70 mm[Hg] 70 mm[Hg] [facility] (A mmir pressure [facility]) Systolic blood 136 mm[Hg] 136 mm[Hg] [facility] ([facility] pressure [facility]) Body weight 244 lb 244 lb [facility] (Ammir Lucila Physician) Heart rate 77 /min 77 /min [facility] (Ammir Lucila [facility]ician) Diastolic blood 70 mm[Hg] 70 mm[Hg] [facility] (A mmir pressure [facility]ician) Systolic blood 136 mm[Hg] 136 mm[Hg] [facility] ([facility] pressure [facility]) Body weight 243 lb 243 lb [facility] (Ammir Lucila Physician) Heart rate 77 /min 77 /min [facility] (Ammir Lucila Physician) Diastolic blood 70 mm[Hg] 70 mm[Hg] [facility] (A mmir pressure [facility]ician) Systolic blood 136 mm[Hg] 136 mm[Hg] [facility] ([facility] pressure [facility]) Body weight 243 lb 243 lb [facility] (Ammir Lucila Physician) Heart rate 77 /min 77 /min [facility] (Ammir Lucila Physician) Diastolic blood 70 mm[Hg] 70 mm[Hg] [facility] (A mmir pressure [facility]ician) Systolic blood 136 mm[Hg] 136 mm[Hg] [facility] ([facility] pressure [facility]) Body weight 243 lb 243 lb [facility] (Ammir Lucila Physician) Heart rate 77 /min 77 /min [facility] (Ammir Lucila Physician) Diastolic blood 70 mm[Hg] 70 mm[Hg] [facility] (A mmir pressure [facility]ician) Systolic blood 136 mm[Hg] 136 mm[Hg] [facility] ([facility] pressure [facility]) Body weight 243 lb 243 lb [facility] (Ammir Lucila Physician) Heart rate 77 /min 77 /min [facility] (Ammir Lucila [facility]ician) Diastolic blood 70 mm[Hg] 70 mm[Hg] [facility] (A mmir pressure [facility]) Systolic blood 136 mm[Hg] 136 mm[Hg] [facility] ([facility] pressure [facility]) Body weight 243 lb 243 lb [facility] (Ammir [facility]ician) Heart rate 74 /min 74 /min [facility] (Ammir [facility]ician) Body temperature 98.4 F 98.4 F [facility] ( Ammir Lucila [facility]ician) Inhaled oxygen 98 % 98 % [facility] ([facility] concentration [facility]) Diastolic blood 84 mm[Hg] 84 mm[Hg] [facility] (A mmir pressure [facility]) Systolic blood 140 mm[Hg] 140 mm[Hg] [facility] ([facility] pressure [facility]) Body weight 250 lb 250 lb [facility] (Ammir Lucila [facility]ician) Heart rate 74 /min 74 /min [facility] (Amm[facility]ician) Body temperature 98.4 F 98.4 F [facility] ( Ammir Lucila [facility]ician) Inhaled oxygen 98 % 98 % [facility] ([facility] concentration [facility]) Diastolic blood 84 mm[Hg] 84 mm[Hg] [facility] (A mmir pressure [facility]ician) Systolic blood 140 mm[Hg] 140 mm[Hg] [facility] ([facility] pressure [facility]) Body weight 250 lb 250 lb [facility] (Ammir Luc[facility]ician) Heart rate 74 /min 74 /min [facility] (Ammir Luc[facility]ician) Body temperature 98.4 F 98.4 F [facility] ( Ammir Lucila [facility]ician) Inhaled oxygen 98 % 98 % [facility] ([facility] concentration [facility]) Diastolic blood 84 mm[Hg] 84 mm[Hg] [facility] (A mmir pressure [facility]ician) Systolic blood 140 mm[Hg] 140 mm[Hg] [facility] ([facility] pressure [facility]) Body weight 250 lb 250 lb [facility] (Ammir Lucila [facility]ician) Heart rate 74 /min 74 /min [facility] (Ammir Luc[facility]ician) Body temperature 98.4 F 98.4 F [facility] ( Ammir Lucila [facility]ician) Inhaled oxygen 98 % 98 % [facility] ([facility] concentration [facility]ician) Diastolic blood 84 mm[Hg] 84 mm[Hg] [facility] (A mmir pressure [facility]ician) Systolic blood 140 mm[Hg] 140 mm[Hg] [facility] ([facility] pressure [facility]) Body weight 250 lb 250 lb [facility] (Ammir Lucila [facility]ician) Heart rate 74 /min 74 /min [facility] (Ammir [facility]ician) Body temperature 98.4 F 98.4 F [facility] ( Ammir Lucila Physician) Inhaled oxygen 98 % 98 % [facility] ([facility] concentration [facility]ician) Diastolic blood 84 mm[Hg] 84 mm[Hg] [facility] (A mmir pressure [facility]ician) Systolic blood 140 mm[Hg] 140 mm[Hg] [facility] ([facility] pressure [facility]) Body weight 250 lb 250 lb [facility] (Ammir Lucila Physician) Heart rate 88 /min 88 /min [facility] (Ammir Lucila [facility]ician) Body temperature 98.4 F 98.4 F [facility] ( Ammir Lucila Physician) Inhaled oxygen 96 % 96 % [facility] ([facility] concentration [facility]) Diastolic blood 78 mm[Hg] 78 mm[Hg] [facility] (A mmir pressure [facility]ician) Systolic blood 142 mm[Hg] 142 mm[Hg] [facility] ([facility] pressure [facility]) Body weight 257 lb 257 lb [facility] (Ammir Lucila [facility]ician) Heart rate 88 /min 88 /min [facility] (Ammir [facility]ician) Body temperature 98.4 F 98.4 F [facility] ( Ammir Lucila Physician) Inhaled oxygen 96 % 96 % [facility] ([facility] concentration [facility]ician) Diastolic blood 78 mm[Hg] 78 mm[Hg] [facility] (A mmir pressure [facility]ician) Systolic blood 142 mm[Hg] 142 mm[Hg] [facility] ([facility] pressure [facility]) Body weight 257 lb 257 lb [facility] (Ammir Lucila [facility]ician) Heart rate 88 /min 88 /min [facility] (Ammir [facility]ician) Body temperature 98.4 F 98.4 F [facility] ( Ammir Lucila Physician) Inhaled oxygen 96 % 96 % [facility] ([facility] concentration [facility]) Diastolic blood 78 mm[Hg] 78 mm[Hg] [facility] (A mmir pressure [facility]) Systolic blood 142 mm[Hg] 142 mm[Hg] [facility] ([facility] pressure [facility]) Body weight 257 lb 257 lb [facility] (Ammir [facility]ician) Heart rate 88 /min 88 /min [facility] (Ammir Luc[facility]ician) Body temperature 98.4 F 98.4 F [facility] ( Ammir Lucila Physician) Inhaled oxygen 96 % 96 % [facility] ([facility] concentration [facility]) Diastolic blood 78 mm[Hg] 78 mm[Hg] [facility] (A mmir pressure [facility]ician) Systolic blood 142 mm[Hg] 142 mm[Hg] [facility] ([facility] pressure [facility]) Body weight 257 lb 257 lb [facility] (Ammir [facility]ician) Heart rate 88 /min 88 /min [facility] (Ammir [facility]ician) Body temperature 98.4 F 98.4 F [facility] ( Ammir Lucila Physician) Inhaled oxygen 96 % 96 % [facility] ([facility] concentration [facility]) Diastolic blood 78 mm[Hg] 78 mm[Hg] [facility] (A mmir pressure [facility]) Systolic blood 142 mm[Hg] 142 mm[Hg] [facility] ([facility] pressure [facility]) Body weight 257 lb 257 lb [facility] (Ammir [facility]ician)
[2020-02-23] MEDS ORDERED: FLUORESCEIN NA 1 EA STRIP ONE (10:57)
--- NOTE | 2020-02-23 11:09 | PDOC ---
History of Present Illness - General Chief Complaint: Eye Problem Stated Complaint: LFT EYE SWOLLEN Time Seen by Provider: 02/23/20 10:47 History Source: Patient Exam Limitations: No Limitations - History of Present Illness Initial Comments: 02/23/20 11:03 Patient is a 74-year-old male with a history of hypertension and diabetes who presents to the ED with left eyelid swelling that started today. He states yesterday his eye had a small bump and felt irritated, then he woke up today and noticed his upper eyelid was swollen. He states he has a sensation of a grain of sand in his eye. He denies any visual changes. He does not wear any contact lenses or glasses. He has not taken anything for his symptoms. He denies any fevers or chills. Past History - Medical History Allergies/Adverse Reactions: Allergies Allergy/AdvReac Type Severity Reaction Status Date / Time ibuprofen [From Advil] Allergy Unknown Vomiting Verified 02/23/20 10:37 acetaminophen [From Tylenol] AdvReac Mild Vomiting Verified 02/23/20 10:37 azithromycin [From Zithromax] AdvReac Mild Vomiting Verified 02/23/20 10:37 Home Medications: Ambulatory Orders Rosuvastatin [Crestor -] 10 mg PO DAILY 12/05/16 Furosemide [Lasix -] 20 mg PO DAILY 10/09/17 Tamsulosin HCl [Flomax -] 0.8 mg PO DAILY@1800 #60 cap.er.24h 02/21/19 metFORMIN HCL [Glucophage -] 500 mg PO BID@0700,1630 #60 tablet 02/21/19 Apixaban [Eliquis -] 5 mg PO BID 30 Days #68 tablet 10/04/19 Aspirin 81 mg PO DAILY 12/17/19 Bicalutamide 50 mg PO DAILY 12/17/19 Metoprolol Tartrate 12.5 mg PO DAILY 12/17/19 Warfarin Na [Coumadin] 6 mg PO DAILY 12/17/19 Erythromycin 0.5% Eye Ointment [Erythromycin 0.5% Eye Ointment -] 1 applic OS BID 7 Days #1 tube 02/23/20 Anemia: No Asthma: Yes Cancer: Yes (prostate) Cardiac Disorders: Yes (CHF, Afib) CVA: No COPD: Yes CHF: Yes DVT: Yes Dementia: No Diabetes: Yes (NIDDM) Dialysis: No GI Disorders: Yes (GERD, COLON POLYP) Disorders: Yes (BPH) HTN: Yes Hypercholesterolemia: Yes Kidney Stones: No Liver Disease: No Psychiatric Problems: No Seizures: No Thyroid Disease: No Lung CA: No - Surgical History Abdominal Surgery: No Appendectomy: No Cardiac Surgery: No Cholecystectomy: No Gastric Stapling: No GI Surgery: No Lung Surgery: No Neurologic Surgery: No Orthopedic Surgery: No - Immunization History Immunization Up to Date: Yes - Psycho-Social/Smoking History Smoking Status: No Smoking History: Never smoked Have you smoked in the past 12 months: No Number of Cigarettes Smoked Daily: 0 If you are a former smoker, when did you quit?: 2001 'Breaking Loose' booklet given: 01/08/12 - Substance Abuse Hx (Audit-C & DAST Scrn) How often the patient has a drink containing alcohol: Never Score: In Men: 4 or > Positive; In Women: 3 or > Positive: 0 Screen Result (Pos requires Nsg. Audit-10AR): Negative In the last yr the pt used illegal drug/Rx for NonMed reason: No Score: Yes response is considered Positive: 0 Screen Result (Positive result requires Nsg. DAST-10): Negative Review of Systems - Review of Systems Comments:: 02/23/20 11:04 - Review of Systems Able to Perform ROS?: Yes Constitutional: No: Fever, Chills, Loss of Appetite, Night Sweats, Weakness HEENTM: No: Eye Pain, Vision changes, Ear Pain, Throat Pain, Throat Swelling, Mouth Pain, Difficulty Swallowing; positive: Left upper eyelid swelling Respiratory: No: Cough, Shortness of Breath, Wheezing, Sputum Production Cardiac (ROS): No: Chest Pain, Chest Tightness, Palpitations, Irregular Heart Beat, Edema ABD/GI: No: Nausea, Vomiting, Abdominal Pain, Diarrhea : No Dysuria, No Hematuria, No Frequency, No Urgency Musculoskeletal: No: Muscle Pain, Back Pain, Joint Pain, Muscle Weakness, Neck Pain Integumentary: No: Lesions, Rash Neurological: No: Headache, Numbness, Tingling, Weakness, Speech Difficulties *Physical Exam - Vital Signs Last Vital Signs Temp Pulse Resp BP Pulse Ox 97.9 F 74 18 145/76 98 02/23/20 10:37 02/23/20 10:37 02/23/20 10:37 02/23/20 10:37 02/23/20 10:37 - Physical Exam 02/23/20 11:04 - Physical Exam General Appearance: Nourished, Appropriately Dressed, No Distress HEENT: EOMI, Normal Voice, No Pharyngeal Erythema, No Muffled/Hoarse voice, No Tonsillar Exudate, No Tonsillar Erythema, No Nasal Congestion, No Rhinorrhea, Hearing Grossly Normal, TMs Normal, No TM Bulging, No TM Dullness, No TM Erythema; left upper eyelid with mild edema but without warmth to touch. Mild erythema. Hordeolum appreciated to the medial upper eyelid, interna. No crepitus appreciated. EOMI without pain. Fluorescein stain performed and shows no uptake. No tenderness to palpation. Neck: Supple, No Lymphadenopathy (R), No Lymphadenopathy (L), No Rigidity, No Decreased range of motion Respiratory/Chest: Lungs Clear, Normal Breath Sounds. No Respiratory Distress, No Accessory Muscle Use Cardiovascular: Regular Rhythm, Regular Rate, S1, S2 Musculoskeletal: Normal Inspection. No Decreased Range of Motion Extremity: Normal Capillary Refill, Normal Inspection Integumentary: Normal Color, Dry. 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 Plan: -We will discharge the patient on an ophthalmic ointment antibiotic -Warm soaks have been discussed -He should follow-up with his primary doctor within 1 to 2 days for repeat evaluation -He understands and agrees with this treatment plan and he is stable for discharge. Discharge - Discharge Information Problems reviewed: Yes Clinical Impression/Diagnosis: Hordeolum internum left upper eyelid Condition: Stable Disposition: HOME - Additional Discharge Information Prescriptions: Erythromycin 0.5% Eye Ointment [Erythromycin 0.5% Eye Ointment -] 1 applic OS BID 7 Days #1 tube - Follow up/Referral Referrals: David Gaytan MD [Primary Care Provider] - 2 Days - Patient Discharge Instructions Patient Printed Discharge Instructions: DI for Blepharitis, DI for Hordeolum Additional Instructions: Apply warm compresses to the eye 3-4 times daily to help heal the infection. Keep the eye clean. Use no tear shampoo to wash anything from the eye. Do not share towels or face cleansers with others. Be sure not to touch her left eye and subsequently touch her right eye as this will cause an infection to spread to the right eye. Change her pillowcase after 2 days to ensure you do not infect your other eye. Follow-up with your primary doctor within 1 to 2 days for repeat evaluation. Use the antibiotics as prescribed and use it for the full 7 days even if you are feeling better. - Post Discharge Activity
== END 2020-02-23 11:15 | disposition home or self-care (01) ==
LOC: JERFT 10:32
DX: H00.014 Hordeolum externum left upper eyelid (principal)
CPT/HCPCS: 99283-25

== ENCOUNTER 2020-02-27 04:45 | Day surgery (SDC) | payer OTHER ==
[2020-02-26 15:28] VITALS: BMI 30.4
--- OUTSIDE RECORDS SUMMARY | 2020-02-27 04:54 | XMS ---
:1945 Author Organization [facility] Care Team Providers Name Role Phone [...] is protected by Article 27-F of the [place] [employer] Public Health law. If you continue you may haveaccess to information: Regarding HIV / AIDS; Provided by facilities licensed or operated by the [employer] Office of Mental Health; or Provided by the [employer] Office for People With Developmental Disabilities. If such information is present, then the following [employer] mandated warning applies: This information has been [...] law may result in a fine or detention sentence or both. A general authorization for the release of medical or other information is NOT sufficient authorization for further disclosure. Encounters Encounter Providers Location Date Indications Data Source(s ) Attender: [facility] 02/07/2020 MED[facility] (A mmir Lucila 12:00:00 AM JAIME Gaytan Ph ysician) [facility] 02/07/2020 12:00:00 AM E DT MEDGEN (Ammir Lucila Physician) Office Attender: David Snowadi 02/07/2020 12:00:00 AM E DT MEDGEN (Ammir Lucila Physician) Office Attender: Ammir Lucila 02/07/2020 12:00:00 AM E DT MEDGEN (Ammir Lucila Physician) Office Attender: Demarcusr Lucila 02/07/2020 12:00:00 AM E DT MEDGEN (Ammir Lucila Physician) Office Attender: brooks Lucila 02/07/2020 12:00:00 AM E DT MEDGEN (Ammir Lucila Physician) Office Attender: David Snowadi 02/07/2020 12:00:00 AM E DT MEDGEN (Ammir Lucila Physician) Office Attender: David Gaytan 02/07/2020 12:00:00 AM E DT [facility] (Ammir Lucila Physician) [facility] 02/07/2020 12:00:00 AM E DT [facility] (Ammir Lucila Physician) Office [facility] 02/07/2020 12:00:00 AM E DT MEDGEN (Ammir Lucila Physician) Office [facility]: [facility] Luc[facility] 02/07/2020 12:00:00 AM E DT MEDGEN (Ammir Lucila Physician) Office [facility]: [facility] Luc[facility] 02/07/2020 12:00:00 AM E DT MEDGEN (Ammir Lucila Physician) Office [facility]: [facility] Lucila 02/07/2020 12:00:00 AM E DT MEDGEN (Ammir Lucila Physician) Office [facility]: [facility] Lucila 02/07/2020 12:00:00 AM E DT MEDGEN (Ammir Lucila Physician) Office Att[facility]: [facility] Lucila 02/07/2020 12:00:00 AM E DT MEDGEN (Ammir Lucila Physician) Office Att[facility]: [facility] Lucila 02/07/2020 12:00:00 AM E DT MEDGEN (Ammir Lucila Physician) Office Att[facility]: [facility] Luc[facility] 02/07/2020 12:00:00 AM E DT MEDGEN (Ammir Lucila Physician) Office Att[facility]: [facility] Lucila 02/07/2020 12:00:00 AM E DT MEDGEN (Ammir Lucila Physician) Office Att[facility]: [facility] Lucila 02/07/2020 12:00:00 AM E DT MEDGEN (Ammir Lucila Physician) Office Att[facility]: [facility] Lucila 02/07/2020 12:00:00 AM E DT MEDGEN (Ammir Lucila Physician) Office Attender: Amakr Lucila 02/07/2020 12:00:00 AM E DT MEDGEN (Ammir Lucila Physician) Office Attender: Ammir Lucila 02/07/2020 12:00:00 AM E DT MEDGEN (Ammir Lucila Physician) Office [facility]: [facility] Lucila 02/07/2020 12:00:00 AM E DT MEDGEN (Ammir Lucila Physician) Office Attender: Ammir Lucila 02/07/2020 12:00:00 AM E DT MEDGEN (Ammir Lucila Physician) Office Attender: Ammir Lucila 01/17/2020 12:00:00 AM E DT MEDGEN (Ammir Lucila Physician) Phone Attender: Ammidevan Lucila 01/02/2020 12:00:00 AM E DT MEDGEN [...] Brand Start Product Dose Route Administrative Pharmacy [facility] Indications Reaction Description Data Name Date Form Instructions Instructions Source(s) LIDOCAINE complet LIDOCAINE MEDGEN EXTERNAL 2019 ed EXTERNAL (Ammir PATCH: 12:00: PATCH Lucila 00 AM Physician) EDT Capsaicin CAPSAI 01/16/ CREAM 1 complet CAPSAIC IN MEDGEN 0.25 MG/ML SANJUANITA 2019 ed TOPICAL (Ammir Topical TOPICA 12:00: Lucila Cream L:1985 AM Physician) CAPSAICIN 55 EDT TOPICAL:198 555 [...] 12:00: PATCH Lucila 00 AM Physician) EDT Acetaminoph TYLENO 01/16/ TABLET [...] complet BETAM ETHASON MEDGEN ne 0.5 THASON 2019 ed E-CLOTRIMAZO (Am brooks MG/ML / E-CLOT 12:00: LE Lucila Clotrimazol RIMAZO 00 AM Physi eliud) e 10 MG/ML LE:308 EDT Topical 714 Cream BETAMETHASO NE-CLOTRIMA ZOLE:[id number] Betamethaso BETAME /19/ CREAM 1 complet BETAM ETHASON MEDGEN ne 0.5 SON 2019 ed E-CLOTRIMAZO (Am brooks MG/ML / E-CLOT 12:00: LE Lucila Clotrimazol RIMAZO 00 AM Physi eliud) e 10 MG/ML LE:308 EDT Topical 714 Cream BETAMETHASO NE-CLOTRIMA ZOLE:012643 Betamethaso BETAME /19/ CREAM 1 complet BETAM ETHASON MEDGEN ne 0.5 SON 2019 ed E-CLOTRIMAZO (Am brooks MG/ML / E-CLOT 12:00: LE Lucila Clotrimazol RIMAZO 00 AM Physi eliud) e 10 MG/ML LE:308 EDT Topical 714 Cream BETAMETHASO NE-CLOTRIMA ZOLE:460251 Betamethaso BETAME 19/ CREAM 1 complet BETAM ETHASON MEDGEN ne 0.5 2019 ed E-CLOTRIMAZO (Am brooks MG/ML / E-CLOT 12:00: LE Lucila Clotrimazol RIMAZO 00 AM Physi eliud) e 10 MG/ML LE:308 EDT Topical 714 Cream BETAMETHASO NE-CLOTRIMA ZOLE:034604 Betamethaso BETAME /19/ CREAM 1 complet BETAM ETHASON MEDGEN ne 0.5 2019 ed E-CLOTRIMAZO (Am broosk MG/ML / E-CLOT 12:00: LE Lucila Clotrimazol RIMAZO 00 AM Physi eliud) e 10 MG/ML LE:308 EDT Topical 714 Cream BETAMETHASO NE-CLOTRIMA ZOLE:617495 Warfarin COUMAD 11/19/ TABLET 30 complet COUMADI N MEDGEN Sodium 1 MG IN:2019 ed (Ammir Oral Tablet 288 12:00: Lucila COUMADIN:85 00 AM Physici an) 5288 EDT Warfarin COUMAD 11/19/ TABLET 30 complet COUMADI N MEDGEN Sodium 1 MG IN:2019 ed (Ammir Oral Tablet 288 12:00: Lucila COUMADIN:85 00 AM Physici an) 5288 EDT Warfarin COUMAD // TABLET 30 complet COUMADI N MEDGEN Sodium 1 MG IN:2019 ed (Ammir Oral Tablet 288 12:00: Lucila COUMADIN:85 00 AM Physici an) 5288 EDT Warfarin COUMAD // TABLET 30 complet COUMADI N MEDGEN Sodium 1 MG IN:2019 ed (Ammir Oral Tablet 288 12:00: Lucila COUMADIN:85 00 AM Physici an) 5288 EDT Warfarin COUMAD 11/19/ TABLET 30 complet COUMADI N MEDGEN Sodium 1 MG IN:2019 ed (Ammir Oral Tablet 288 12:00: Lucila COUMADIN:85 00 AM Physici an) 5288 EDT cetirizine ZYRTEC 06/10/ TABLET 90 complet ZYRTE C MEDGEN hydrochlori :[id number] ed (Ammir de 10 MG 26 12:00: Lucila Oral Tablet 00 AM Physici an) [Zyrtec] EDT ZYRTEC:1020 026 cetirizine ZYRTEC 06/10/ TABLET 90 complet ZYRTE C MEDGEN hydrochlori :[id number] ed (Ammir de 10 MG 26 12:00: Lucila Oral Tablet 00 AM Physici an) [Zyrtec] EDT ZYRTEC:1020 026 cetirizine ZYRTEC 06/10/ TABLET 90 complet ZYRTE C MEDGEN hydrochlori :62746 2019 ed (Ammir de 10 MG 26 12:00: Lucila Oral Tablet 00 AM Physici an) [Zyrtec] EDT ZYRTEC:1020 026 cetirizine ZYRTEC 06/10/ TABLET 90 complet ZYRTE C MEDGEN hydrochlori :11724 2019 ed (Ammir de 10 MG 26 12:00: Lucila Oral Tablet 00 AM Physici an) [Zyrtec] EDT ZYRTEC:1020 026 cetirizine ZYRTEC 06/10/ TABLET 90 complet ZYRTE C MEDGEN hydrochlori :17869 2019 ed (Ammir de 10 MG 26 [...] n) 0.0045 EDT MG/ACTUAT Inhalant Powder SYMBICORT:5 94934 Budesonide SYMBIC 01/31/ AEROSOL 1 complet SYMB ICORT MEDGEN 0.16 ORT:59 2019 ed (Ammir MG/ACTUAT / 7829 12:00: Lucila formoterol 00 AM Physicia n) 0.0045 EDT MG/ACTUAT Inhalant Powder SYMBICORT:5 36570 Budesonide SYMBIC 01/31/ AEROSOL 1 complet SYMB ICORT MEDGEN 0.16 ORT:59 2019 ed (Ammir MG/ACTUAT / 7829 12:00: Lucila formoterol 00 AM Physicia n) 0.0045 EDT MG/ACTUAT Inhalant Powder SYMBICORT:5 55012 Budesonide SYMBIC 01/31/ AEROSOL 1 complet SYMB ICORT MEDGEN 0.16 ORT:59 2019 ed (Ammir MG/ACTUAT / 7829 12:00: Lucila formoterol 00 AM Physicia n) 0.0045 EDT MG/ACTUAT Inhalant Powder SYMBICORT:5 21976 Budesonide SYMBIC 01/31/ AEROSOL 1 complet SYMB ICORT MEDGEN 0.16 ORT:59 2019 ed (Ammir MG/ACTUAT / 7829 12:00: Lucila formoterol 00 AM Physicia n) 0.0045 EDT MG/ACTUAT Inhalant Powder SYMBICORT:5 56155 Metformin METFOR 01/02/ TABLET 180 complet METFOR MIN MEDGEN hydrochlori MIN:86 2019 ed (Ammir de 500 MG 1007 12:00: Lucila Oral Tablet 00 AM Physici an) METFORMIN:8 EDT 16314 Metformin METFOR 01/02/ TABLET 180 complet METFOR MIN MEDGEN hydrochlori MIN:86 2019 ed (Ammir de 500 MG 1007 12:00: Lucila Oral Tablet 00 AM Physici an) METFORMIN:8 EDT 50750 Metformin METFOR 01/02/ TABLET 180 complet METFOR MIN MEDGEN hydrochlori MIN:86 2018 ed (Ammir de 500 MG 1007 12:00: Lucila Oral Tablet 00 AM Physici an) METFORMIN:8 EDT 27489 Metformin METFOR 01/02/ TABLET 180 complet METFOR MIN MEDGEN hydrochlori MIN:86 2018 ed (Ammir de 500 MG 1007 12:00: Lucila Oral Tablet 00 AM Physici an) METFORMIN:8 EDT 36173 Metformin METFOR 01/02/ TABLET 180 complet METFOR MIN MEDGEN hydrochlori MIN:86 2018 ed (Ammir de 500 MG 1007 12:00: Lucila Oral Tablet 00 AM Physici an) METFORMIN:8 EDT 12181 bicalutamid BICALU 01/01/ TABLET 30 complet BICA [...] name Policy type Policy ID Covered Covered libertarian's Policy P kathleen / Coverage libertarian ID relationship to Vines Inf ormation type vines HIP MEDICARE [id number] SP [id number] VIP [facility] MEDICARE [id number] SP [id number] [facility] MEDICARE [id number] SP [id number] COVID-19 SP [id number] SP [id number] (BUS OFF USE ONLY) Problems, Conditions, [...] Documentation of current 05/08/2019 MED GEN (Ammir Luicla medications (procedure) 12:00:00 AM EST P hysician) [...] P hysician) Results ID Date Data Source [id number] 02/23/2020 10:25:00 AM EDT [facility] Name Value Range Interpretation Description Data Sup porting Code Source(s) Document(s ) SARS [facility] coronavirus 2 RNA This lab was ordered by [facility] and reported by [facility]. ID Date Data Source [id number] 02/08/2020 07:53:00 PM EDT [facility] Received: 02/08/2020 at 01:35:00 QTE : [facility] [place], [address]Robby MD Received: 02/08/2020 at 01:35:00 QTE : [facility] [place], [address]Robby MD Received: 02/08/2020 at 01:35:00 QTE : [place], [address]Robby MD Received: 02/08/2020 at 01:35:00 QTE : [place], [address]Robby MD Received: 02/08/2020 at 01:35:00 QTE : [facility], Char Hoyt [place], [address], Robby Darden MD Received: 02/08/2020 at 01:35:00 QTE : [facility], [place], [address], Robby Darden MD Name Value Range Interpretation Description Data Source(s ) Supporting Code Document(s ) aPTT in 36 sec 22-34 Above high normal [facility] Plate[facility] poor Diagn[facility] plasma by Coagulation assay This test has not been validated for mon itoringunfractionated heparin therapy. For testing thatis validated for this type o f therapy, please referto the Heparin Anti-Xa assay (test code 57926).For additional i nformation, please refer tohttp://education.Snippets/ faq/XKH356(This link is being provided forinformational/educational purposes on ly.) INR in Platelet poor plasma by 2.2 Above high normal [facility] Coagulation assay Reference Range 0.9- 1.1Moderate-intensity Warfarin Therapy 2.0-3.0Higher-intensity Warfarin Therapy 3.0-4.0 Prothrombin time (PT) 21.3 sec 9.0-11.5 Above high normal [facility] ID Date Data Source [id number] 02/08/2020 07:53:00 PM EDT [facility] Received: 02/08/2020 at 01:35:00 QTE : [facility] Char Vel [place], [address], Robby Darden MD Received: 02/08/2020 at 01:35:00 QTE : [facility] Char Hoyt [place], [address], Robby Darden MD Received: 02/08/2020 at 01:35:00 QTE : [facility] [place], [address]Robby MD Received: 02/08/2020 at 01:35:00 QTE : [facility] [place], [address], Robby Darden MD Received: 02/08/2020 at 01:35:00 QTE : [facility] [place], [address]Robby MD Received: 02/08/2020 at 01:35:00 QTE : [facility], [place], [address], Robby Darden MD Name Value Range Interpretation [...] Serum or Plasma ID Date Data Source [id number] 02/08/2020 07:53:00 PM EDT [facility] Received: 02/08/2020 at 01:35:00 QTE : Char [place], [address], Robby Darden MD Received: 02/08/2020 at 01:35:00 QTE : [place], [address], Robby Darden MD Received: 02/08/2020 at 01:35:00 QTE : [facility] [place], [place], [address], Robby Darden MD Received: 02/08/2020 at 01:35:00 QTE : [facility], [place], [address], Robby Darden MD Received: 02/08/2020 at 01:35:00 QTE : [facility], Vel [place], [address], Robby Darden MD Received: 02/08/2020 at 01:35:00 QTE : [facility], [place], [address], Robby Darden MD Name Value Range Interpretation [...] results) by Stella ID Date Data Source [id number] 02/08/2020 07:53:00 PM EDT [facility] Received: 02/08/2020 at 01:35:00 QTE : [facility], Char [address], [place], [address], Robby Darden MD Received: 02/08/2020 at 01:35:00 QTE : [facility], Char Stinson, [place], [address], Robby Darden MD Received: 02/08/2020 at 01:35:00 QTE : [facility], Char [address], [place], [address], Robby Darden MD Received: 02/08/2020 at 01:35:00 QTE : [facility], C[address], [place], [address], Robby Darden MD Received: 02/08/2020 at 01:35:00 QTE : [facility], Char [address], [place], [address], Robby Darden MD Received: 02/08/2020 at 01:35:00 QTE : [facility], Char Stinson, [place], [address], Robby Darden MD Name Value Range Interpretation Code Description Data Salome rce(s) Supporting Document(s ) Color of YELLOW Normal (applies to [facility] Urine non-numeric Diagnostics results) The preferred specimen for urinalysis is urinepreserved using a [employer] standard urine preservativetube (yellow capped, blue ba nd) that may be obtainedfrom your [facility] supplier.Please review resul ts with caution. Urinalysistesting on unpreserved urine may produce alteration of chemical constituents and deterioration of formedelements. Appearance of Urine CLEAR CLEAR Normal (applies to [facility] non-numeric results) Specific gravity of 1.015 1.001-1.035 Normal (applies to [facility] Urine by Test strip non-numeric results) pH of Urine by Test 5.5 5.0-8.0 Normal (applies to [facility] strip non-numeric results) Glucose [Presence] [...] high power field ID Date Data Source [id number] 02/08/2020 07:53:00 PM EDT [facility] Received: 02/08/2020 at 01:35:00 QTE : [facility], Char Smithjeremy [address], [place], [address], Robby Darden MD Received: 02/08/2020 at 01:35:00 QTE : [facility], Char Almendarezcata St[place], [place], [address], Robby Darden MD Received: 02/08/2020 at 01:35:00 QTE : [facility], Char Almendarezcata [place], [place], [address], Robby Darden MD Received: 02/08/2020 at 01:35:00 QTE : [facility], Char Smithjeremy St[place], [place], [address], Robby Darden MD Received: 02/08/2020 at 01:35:00 QTE : [facility], Char Smithjeremy St[place], [place], [address], Robby Darden MD Received: 02/08/2020 at 01:35:00 QTE : [facility], Char Almendarezcata St[place], [place], [address], Robby Darden MD Name Value Range Interpretation Description Data Sup porting Code Source(s) Document(s ) Bacteria NO CULTURE [facility] identified in [facility] Urine by Culture ID Date Data Source [id number] 02/08/2020 07:53:00 PM EDT [facility] Received: 02/08/2020 at 01:35:00 QTE : [facility], [place], [address], Robby Darden MD Received: 02/08/2020 at 01:35:00 QTE : [facility], [place], [address], Robby Darden MD Received: 02/08/2020 at 01:35:00 QTE : [facility], [place], [address], Robby Darden MD Received: 02/08/2020 at 01:35:00 QTE : [facility], [place], [address]Robby MD Received: 02/08/2020 at 01:35:00 QTE : [facility], [place], [address]Robby MD Received: 02/08/2020 at 01:35:00 QTE : [facility], [place], [address], Robby Darden MD Name Value Range Interpretation Description Data Source(s ) Supporting Code Document(s ) Hemoglobin 6.8 % of <5.7 Above high normal [facility] A1c/Hemoglobin total Diagnostics .total in Hgb Blood For someone without known diabetes, a he moglobin [id number] of 6.5% or greater indicates that they [...] diabetes for children. ID Date Data Source [id number] 02/07/2020 12:00:00 AM EDT MED[facility] (Pinkymidevan Gaytan Physician) Name Value Range Interpretation Description Data Sup porting Code Source(s) Document(s ) Hemoglobin A1c 6.8 % of Above high normal [facility] in Blood total Hgb (David Gaytan Physician) ID Date Data Source [id number] 02/07/2020 12:00:00 AM EDT [facility] (Pinkymidevan Gaytan Physician) Name Value Range Interpretation Description Data Sup porting Code Source(s) Document(s ) REFLEXIVE NO CULTURE Normal (applies [facility] URINE INDICATED to non-numeric (Ammir CULTURE results) Lucila Physician) ID Date Data Source [id number] 02/07/2020 12:00:00 AM EDT [facility] (Ammir Lucila [...] results) Lucila Physician) ID Date Data Source [id number] 02/07/2020 12:00:00 AM EDT [facility] (Ammir Lucila [...] results) Lucila Physician) ID Date Data Source [id number] 02/07/2020 12:00:00 AM EDT [facility] (Ammir Lucila [...] Physician) eGFR NON-AFR. 84 Normal (applies [facility] MALTESE mL/min/1.73m to non-numeric (Ammir 2 results) Lucila Physician) eGFR 98 Normal (applies [facility] MALTESE mL/min/1.73m to non-numeric (Ammir 2 results) Lucila [...] results) Lucila Physician) ID Date Data Source [id number] 02/07/2020 12:00:00 AM EDT [facility] (Ammir Lucila Physician) Name Value Range Interpretation Description Data Sup porting Code Source(s) Document(s ) PARTIAL 36 sec Above high normal [facility] THROMBOPLASTIN (Ammir TIME, ACTIVATED Lucila Physician) INR 2.2 Above high normal [facility] (Ammir Lucila Physician) PT 21.3 sec Above high normal [facility] (Ammir Lucila Physician) ID Date Data Source [id number] 12/15/2019 10:50:00 AM EDT [facility] Name Value Range Interpretation Description Data Sup porting Code Source(s) Document(s ) SARS [facility] coronavirus 2 RNA This lab was ordered by [facility] and reported by [facility]. ID Date Data Source [id number] 11/09/2019 12:00:00 AM EDT [facility] (Ammir Lucila Physician) Name Value Range Interpretation Code Description Data Salome rce(s) Supporting Document(s ) CULTURE, Normal (applies to [facility] (Amm ir URINE, non-numeric Lucila ROUTINE results) Physician) ID Date Data Source [id number] 11/09/2019 12:00:00 AM EDT [facility] (Ammir Lucila Physician) Name Value Range Interpretation Code Description Data Supporting Source(s) Document(s ) REFLEXIVE Normal (applies to [facility] (Amm ir URINE CULTURE non-numeric Lucila results) Physician) ID Date Data Source [id number] 11/09/2019 12:00:00 AM EDT [facility] (Ammir Ulcila Physician) Name Value Range Interpretation Description Data [...] results) Lucila Physician) ID Date Data Source [id number] 11/09/2019 12:00:00 AM EDT [facility] (Ammir Lucila [...] Physician) RANDOM URINE ID Date Data Source [id number] 11/09/2019 12:00:00 AM EDT [facility] (Ammir Lucila Physician) Name Value Range Interpretation Description Data Sup porting Code Source(s) Document(s ) PARTIAL 31 sec Normal (applies [facility] THROMBOPLASTIN to non-numeric (Ammir TIME, ACTIVATED results) Lucila Physician) INR 1.3 Above high normal [facility] (Ammir Lucila Physician) PT 12.7 sec Above high normal [facility] (Ammir Lucila Physician) ID Date Data Source [id number] 11/09/2019 12:00:00 AM EDT [facility] (Ammir Lucila Physician) Name Value Range Interpretation Code Description Data Salome rce(s) Supporting Document(s ) CULTURE, Normal (applies to [facility] (Amm ir URINE, non-numeric Lucila ROUTINE results) Physician) ID Date Data Source [id number] 11/09/2019 12:00:00 AM EDT [facility] (Ammir Lucila [...] results) Lucila Physician) ID Date Data Source [id number] 11/09/2019 12:00:00 AM EDT [facility] (Ammir Lucila [...] results) Lucila Physician) ID Date Data Source [id number] 11/09/2019 12:00:00 AM EDT [facility] (Ammir Lucila [...] Physician) RANDOM URINE ID Date Data Source [id number] 11/09/2019 12:00:00 AM EDT [facility] (Ammir Lucila Physician) Name Value Range Interpretation Description Data Sup porting Code Source(s) Document(s ) PARTIAL 31 sec Normal (applies [facility] THROMBOPLASTIN to non-numeric (Ammir TIME, ACTIVATED results) Lucila Physician) INR 1.3 Above high normal [facility] (Ammir Lucila Physician) PT 12.7 sec Above high normal [facility] (Ammir Lucila Physician) ID Date Data Source [id number] 11/09/2019 12:00:00 AM EDT [facility] (Ammir Lucila Physician) Name Value Range Interpretation Code Description Data Salome rce(s) Supporting Document(s ) CULTURE, Normal (applies to [facility] (Amm ir URINE, non-numeric Lucila ROUTINE results) Physician) ID Date Data Source [id number] 11/09/2019 12:00:00 AM EDT [facility] (Ammir Luclia Physician) Name Value Range Interpretation Code Description Data Supporting Source(s) Document(s ) REFLEXIVE Normal (applies to [facility] (Amm ir URINE CULTURE non-numeric Lucila results) Physician) ID Date Data Source [id number] 11/09/2019 12:00:00 AM EDT [facility] (Ammir Lucila [...] results) Lucila Physician) ID Date Data Source [id number] 11/09/2019 12:00:00 AM EDT [facility] (Ammir Lucila [...] Physician) RANDOM URINE ID Date Data Source [id number] 11/09/2019 12:00:00 AM EDT [facility] (Ammir Lucila Physician) Name Value Range Interpretation Description Data Sup porting Code Source(s) Document(s ) PARTIAL 31 sec Normal (applies [facility] THROMBOPLASTIN to non-numeric (Ammir TIME, ACTIVATED results) Lucila Physician) INR 1.3 Above high normal [facility] (Ammir Lucila Physician) PT 12.7 sec Above high normal [facility] (Ammir Lucila Physician) ID Date Data Source [id number] 11/09/2019 12:00:00 AM EDT [facility] (Ammir Lucila Physician) Name Value Range Interpretation Code Description Data Salome rce(s) Supporting Document(s ) CULTURE, Normal (applies to [facility] (Amm ir URINE, non-numeric Lucila ROUTINE results) Physician) ID Date Data Source [id number] 11/09/2019 12:00:00 AM EDT [facility] (Ammir Lucila Physician) Name Value Range Interpretation Code Description Data Supporting Source(s) Document(s ) REFLEXIVE Normal (applies to [facility] (Amm ir URINE CULTURE non-numeric Lucila results) Physician) ID Date Data Source [id number] 11/09/2019 12:00:00 AM EDT [facility] (Ammir Lucila [...] results) Lucila Physician) ID Date Data Source [id number] 11/09/2019 12:00:00 AM EDT [facility] (Ammir Lucila [...] Physician) RANDOM URINE ID Date Data Source [id number] 11/09/2019 12:00:00 AM EDT [facility] (Ammir Lucila Physician) Name Value Range Interpretation Description Data Sup porting Code Source(s) Document(s ) PARTIAL 31 sec Normal (applies [facility] THROMBOPLASTIN to non-numeric (Ammir TIME, ACTIVATED results) Lucila Physician) INR 1.3 Above high normal [facility] (Ammir Lucila Physician) PT 12.7 sec Above high normal [facility] (Ammir Lucila Physician) ID Date Data Source [id number] 11/09/2019 12:00:00 AM EDT [facility] (Ammir Lucila Physician) Name Value Range Interpretation Code Description Data Salome rce(s) Supporting Document(s ) CULTURE, Normal (applies to [facility] (Amm ir URINE, non-numeric Lucila ROUTINE results) Physician) ID Date Data Source [id number] 11/09/2019 12:00:00 AM EDT [facility] (Ammir Lucila Physician) Name Value Range Interpretation Code Description Data Supporting Source(s) Document(s ) REFLEXIVE Normal (applies to [facility] (Amm ir URINE CULTURE non-numeric Lucila results) Physician) ID Date Data Source [id number] 11/09/2019 12:00:00 AM EDT [facility] (Ammir Lucila [...] results) Lucila Physician) ID Date Data Source [id number] 11/09/2019 12:00:00 AM EDT [facility] (Ammir Lucila [...] Physician) RANDOM URINE ID Date Data Source [id number] 11/09/2019 12:00:00 AM EDT [facility] (Ammir Lucila Physician) Name Value Range Interpretation Description Data Sup porting Code Source(s) Document(s ) PARTIAL 31 sec Normal (applies [facility] THROMBOPLASTIN to non-numeric (Ammir TIME, ACTIVATED results) Lucila Physician) INR 1.3 Above high normal [facility] (Ammir Lucila Physician) PT 12.7 sec Above high normal [facility] (Ammir Lucila Physician) ID Date Data Source [id number] 10/23/2019 12:00:00 AM EDT [facility] (Ammir Lucila [...] (applies [facility] (calc) to non-numeric (Ammir results) Lucial Physician) NON HDL 57 mg/dL Normal (applies [facility] CHOLESTEROL (calc) to non-numeric (Ammir results) Lucila Physician) ID Date Data Source [id number] 10/23/2019 12:00:00 AM EDT [facility] (Ammir Lucila Physician) Name Value Range Interpretation Description Data Sup porting Code Source(s) Document(s ) Hemoglobin A1c 6.5 % of Above high normal [facility] in Blood total Hgb (Ammir Lucila Physician) ID Date Data Source [id number] 10/23/2019 12:00:00 AM EDT [facility] (Ammir Lucila [...] Lucila results) Physician) ID Date Data Source [id number] 10/23/2019 12:00:00 AM EDT [facility] (Ammir Lucila [...] Lucila results) Physician) ID Date Data Source [id number] 10/23/2019 12:00:00 AM EDT [facility] (Ammir Lucila Physician) Name Value Range Interpretation Description Data Sup porting Code Source(s) Document(s ) VITAMIN B12 383 pg/mL Normal (applies to [facility] (A mmir non-numeric Lucila results) Physician) FOLATE, 7.7 ng/mL Normal (applies to [facility] (Amm ir SERUM non-numeric Lucila results) Physician) ID Date Data Source [id number] 10/23/2019 12:00:00 AM EDT [facility] (Ammir Lucila Physician) Name Value Range Interpretation Code Description Data Salome rce(s) Supporting Document(s ) TSH 1.86 mIU/L Normal (applies to [facility] (Am brooks W/REFLEX non-numeric Lucila TO FT4 results) Physician) ID Date Data Source [id number] 10/23/2019 12:00:00 AM EDT [facility] (Ammir Lucila Physician) Name Value Range Interpretation Code Description Data Salome rce(s) Supporting Document(s ) SARS CoV POSITIVE Abnormal (applies [facility] (Ammi r 2 AB IGG to non-numeric Lucila results) Physician) ID Date Data Source [id number] 10/23/2019 12:00:00 AM EDT [facility] (Ammir Lucila [...] results) Lucila Physician) ID Date Data Source [id number] 10/23/2019 12:00:00 AM EDT [facility] (Ammir Lucila [...] Physician) eGFR NON-AFR. 85 Normal (applies [facility] [place] mL/min/1.73m to non-numeric (Ammir 2 results) Lucila Physician) eGFR 98 Normal (applies [facility] [place] mL/min/1.73m to non-numeric (Ammir 2 results) Lucila [...] results) Lucila Physician) ID Date Data Source [id number] 10/23/2019 12:00:00 AM EDT [facility] (Ammir Lucila [...] results) Lucila Physician) ID Date Data Source [id number] 10/23/2019 12:00:00 AM EDT [facility] (Ammir Lucila Physician) Name Value Range Interpretation Description Data Sup porting Code Source(s) Document(s ) Hemoglobin A1c 6.5 % of Above high normal [facility] in Blood total Hgb (Ammir Lucila Physician) ID Date Data Source [id number] 10/23/2019 12:00:00 AM EDT [facility] (Ammir Lucila [...] Lucila results) Physician) ID Date Data Source [id number] 10/23/2019 12:00:00 AM EDT [facility] (Ammir Lucila [...] Lucila results) Physician) ID Date Data Source [id number] 10/23/2019 12:00:00 AM EDT [facility] (Ammir Lucila Physician) Name Value Range Interpretation Description Data Sup porting Code Source(s) Document(s ) VITAMIN B12 383 pg/mL Normal (applies to [facility] (A mmir non-numeric Lucila results) Physician) FOLATE, 7.7 ng/mL Normal (applies to [facility] (Amm ir SERUM non-numeric Lucila results) Physician) ID Date Data Source [id number] 10/23/2019 12:00:00 AM EDT [facility] (Ammir Lucial Physician) Name Value Range Interpretation Code Description Data Salome rce(s) Supporting Document(s ) TSH 1.86 mIU/L Normal (applies to [facility] (Am brooks W/REFLEX non-numeric Lucila TO FT4 results) Physician) ID Date Data Source [id number] 10/23/2019 12:00:00 AM EDT [facility] (Ammir Lucila [...] Physician) eGFR NON-AFR. 85 Normal (applies [facility] [place] mL/min/1.73m to non-numeric (Ammir 2 results) Lucila Physician) eGFR 98 Normal (applies [facility] [place] mL/min/1.73m to non-numeric (Ammir 2 results) Lucila [...] results) Lucila Physician) ID Date Data Source [id number] 10/23/2019 12:00:00 AM EDT [facility] (Ammir Lucila [...] results) Lucila Physician) ID Date Data Source [id number] 10/23/2019 12:00:00 AM EDT [facility] (Ammir Lucila Physician) Name Value Range Interpretation Description Data Sup porting Code Source(s) Document(s ) Hemoglobin A1c 6.5 % of Above high normal [facility] in Blood total Hgb (Ammir Lucila Physician) ID Date Data Source [id number] 10/23/2019 12:00:00 AM EDT [facility] (Ammir Lucila [...] Lucila results) Physician) ID Date Data Source [id number] 10/23/2019 12:00:00 AM EDT [facility] (Ammir Lucila [...] Lucila results) Physician) ID Date Data Source [id number] 10/23/2019 12:00:00 AM EDT [facility] (Ammir Lucila Physician) Name Value Range Interpretation Description Data Sup porting Code Source(s) Document(s ) VITAMIN B12 383 pg/mL Normal (applies to [facility] (A mmir non-numeric Lucila results) Physician) FOLATE, 7.7 ng/mL Normal (applies to [facility] (Amm ir SERUM non-numeric Lucila results) Physician) ID Date Data Source [id number] 10/23/2019 12:00:00 AM EDT [facility] (Ammir Lucila Physician) Name Value Range Interpretation Code Description Data Saloem rce(s) Supporting Document(s ) TSH 1.86 mIU/L Normal (applies to [facility] (Am brooks W/REFLEX non-numeric Lucila TO FT4 results) Physician) ID Date Data Source [id number] 10/23/2019 12:00:00 AM EDT [facility] (Ammir Lucila Physician) Name Value Range Interpretation Code Description Data Salome rce(s) Supporting Document(s ) SARS CoV POSITIVE Abnormal (applies [facility] (Ammi r 2 AB IGG to non-numeric Lucila results) Physician) ID Date Data Source [id number] 10/23/2019 12:00:00 AM EDT [facility] (Ammir Lucila [...] results) Lucila Physician) ID Date Data Source [id number] 10/23/2019 12:00:00 AM EDT [facility] (Ammir Lucila [...] Physician) eGFR NON-AFR. 85 Normal (applies [facility] [place] mL/min/1.73m to non-numeric (Ammir 2 results) Lucila Physician) eGFR 98 Normal (applies [facility] [place] mL/min/1.73m to non-numeric (Ammir 2 results) Lucila [...] results) Lucila Physician) ID Date Data Source [id number] 10/23/2019 12:00:00 AM EDT [facility] (Ammir Lucila [...] results) Lucila Physician) ID Date Data Source [id number] 10/23/2019 12:00:00 AM EDT [facility] (Ammir Lucila Physician) Name Value Range Interpretation Description Data Sup porting Code Source(s) Document(s ) Hemoglobin A1c 6.5 % of Above high normal [facility] in Blood total Hgb (Ammir Lucila Physician) ID Date Data Source [id number] 10/23/2019 12:00:00 AM EDT [facility] (Ammir Lucila [...] Lucila results) Physician) ID Date Data Source [id number] 10/23/2019 12:00:00 AM EDT [facility] (Ammir Lucila [...] Lucila results) Physician) ID Date Data Source [id number] 10/23/2019 12:00:00 AM EDT [facility] (Ammir Lucila Physician) Name Value Range Interpretation Description Data Sup porting Code Source(s) Document(s ) VITAMIN B12 383 pg/mL Normal (applies to [facility] (A mmir non-numeric Lucila results) Physician) FOLATE, 7.7 ng/mL Normal (applies to [facility] (Amm ir SERUM non-numeric Lucila results) Physician) ID Date Data Source [id number] 10/23/2019 12:00:00 AM EDT [facility] (Ammir Lucila Physician) Name Value Range Interpretation Code Description Data Salome rce(s) Supporting Document(s ) TSH 1.86 mIU/L Normal (applies to [facility] (Am brooks W/REFLEX non-numeric Lucila TO FT4 results) Physician) ID Date Data Source [id number] 10/23/2019 12:00:00 AM EDT [facility] (Ammir Lucila Physician) Name Value Range Interpretation Code Description Data Salome rce(s) Supporting Document(s ) SARS CoV POSITIVE Abnormal (applies [facility] (Ammi r 2 AB IGG to non-numeric Lucila results) Physician) ID Date Data Source [id number] 10/23/2019 12:00:00 AM EDT [facility] (Ammir Lucila [...] results) Lucila Physician) ID Date Data Source [id number] 10/23/2019 12:00:00 AM EDT [facility] (Ammir Lucila [...] Physician) eGFR NON-AFR. 85 Normal (applies [facility] [place] mL/min/1.73m to non-numeric (Ammir 2 results) Lucila Physician) eGFR 98 Normal (applies [facility] [place] mL/min/1.73m to non-numeric (Ammir 2 results) Lucila [...] results) Lucila Physician) ID Date Data Source [id number] 10/23/2019 12:00:00 AM EDT [facility] (Ammir Lucila Physician) Name Value Range Interpretation Description Data Sup porting Code Source(s) Document(s ) Hemoglobin A1c 6.5 % of Above high normal [facility] in Blood total Hgb (Ammir Lucila Physician) ID Date Data Source [id number] 10/23/2019 12:00:00 AM EDT [facility] (Ammir Lucila [...] Lucila results) Physician) ID Date Data Source [id number] 10/23/2019 12:00:00 AM EDT [facility] (Ammir Lucila [...] Lucila results) Physician) ID Date Data Source [id number] 10/23/2019 12:00:00 AM EDT [facility] (Ammir Lucila Physician) Name Value Range Interpretation Description Data Sup porting Code Source(s) Document(s ) VITAMIN B12 383 pg/mL Normal (applies to [facility] (A mmir non-numeric Lucila results) Physician) FOLATE, 7.7 ng/mL Normal (applies to [facility] (Amm ir SERUM non-numeric Lucila results) Physician) ID Date Data Source [id number] 10/23/2019 12:00:00 AM EDT [facility] (Ammir Lucila Physician) Name Value Range Interpretation Code Description Data Salome rce(s) Supporting Document(s ) TSH 1.86 mIU/L Normal (applies to [facility] (Am brooks W/REFLEX non-numeric Lucila TO FT4 results) Physician) ID Date Data Source [id number] 10/23/2019 12:00:00 AM EDT [facility] (Ammir Lucila Physician) Name Value Range Interpretation Code Description Data Salome rce(s) Supporting Document(s ) SARS CoV POSITIVE Abnormal (applies [facility] (Ammi r 2 AB IGG to non-numeric Lucila results) Physician) ID Date Data Source [id number] 10/23/2019 12:00:00 AM EDT [facility] (Ammir Lucila [...] results) Lucila Physician) ID Date Data Source [id number] 10/23/2019 12:00:00 AM EDT [facility] (Ammir Lucila Physician) Name Value Range Interpretation Description Data Sup porting Code Source(s) Document(s ) Glucose 113 mg/dL Above high [facility] [Mass/volume] normal (Ammir in Urine Lucila collected for Physician) unspecified duration UREA NITROGEN 15 mg/dL Normal (applies [facility] (BUN) to non-numeric (Ammir results) Lucila Physician) eGFR NON-AFR. 85 Normal (applies [facility] [place] mL/min/1.73m to non-numeric (Ammir 2 results) Lucila Physician) Creatinine 0.85 mg/dL Normal (applies [facility] [Interpretation to non-numeric (Ammir ] in Urine results) Lucila Physician) eGFR 98 Normal (applies [facility] [place] mL/min/1.73m to non-numeric (Ammir 2 results) Lucila [...] results) Lucila Physician) ID Date Data Source [id number] 10/23/2019 12:00:00 AM EDT [facility] (Ammir Lucila [...] results) Lucila Physician) ID Date Data Source [id number] 10/05/2019 11:48:00 AM EDT [facility] Name Value Range Interpretation Code Description Data Salome rce(s) Supporting Document(s ) SARS-CoV-2 [facility] , RNA This lab was ordered by [facility] and reported by [facility]. ID Date Data Source [id number] 10/02/2019 03:00:00 PM EDT [facility] Name Value Range Interpretation Description Data Sup porting Code Source(s) Document(s ) SARS [facility] CORONAVIRUS 2 RNA This lab was ordered by [facility] and reported by [facility]. ID Date Data Source [id number] 09/29/2019 08:38:00 AM EDT [facility] Name Value Range Interpretation Description Data Sup porting Code Source(s) Document(s ) SARS [facility] CORONAVIRUS 2 RNA This lab was ordered by [facility] and reported by [facility]. ID Date Data Source [id number] 09/25/2019 04:25:00 PM EDT [facility] Name Value Range Interpretation Description Data Sup porting Code Source(s) Document(s ) SARS [facility] CORONAVIRUS 2 RNA This lab was ordered by [facility] and reported by [facility]. ID Date Data Source [id number] 09/18/2019 08:25:00 PM EDT [facility] Name Value Range Interpretation Description Data Sup porting Code Source(s) Document(s ) SARS [facility] CORONAVIRUS 2 RNA This lab was ordered by [facility] and reported by [facility]. ID Date Data Source [id number] 04/30/2019 12:00:00 AM EST [facility] (Ammir Lucila [...] EGFR NON AFR 84 Normal (applies [facility] [place] mL/min/1 to non-numeric (Ammir .73m2 results) Lucila Physician) EGFR 97 Normal (applies [facility] [place] mL/min/1 to non-numeric (Ammir .73m2 results) Lucila Physician) HISTOLOGY RESULT SEE Normal (applies [facility] NOTES to non-numeric (Ammir results) Lucila Physician) ID Date Data Source [id number] 04/30/2019 12:00:00 AM EST [facility] (Ammir Lucila Physician) Name Value Range Interpretation Description Data Sup porting Code Source(s) Document(s ) HISTOLOGY SEE NOTES Normal (applies to [facility] (Amm ir RESULT non-numeric Lucila results) Physician) ID Date Data Source [id number] 04/30/2019 12:00:00 AM EST [facility] (Ammir Lucila Physician) Name Value Range Interpretation Description Data Sup porting Code Source(s) Document(s ) HISTOLOGY SEE NOTES Normal (applies to [facility] (Amm ir RESULT non-numeric Lucila results) Physician) ID Date Data Source [id number] 04/30/2019 12:00:00 AM EST [facility] (Ammir Lucila Physician) Name Value Range Interpretation Description Data Sup porting Code Source(s) Document(s ) HISTOLOGY SEE NOTES Normal (applies to [facility] (Amm ir RESULT non-numeric Lucila results) Physician) ID Date Data Source [id number] 04/26/2019 12:00:00 AM EST [facility] (Ammir Ulcila Physician) Name Value Range Interpretation Description Data Sup porting Code Source(s) Document(s ) ORGANISM Abnormal (applies [facility] to non-numeric (Ammir results) Lucila Physician) Comment Normal (applies [facility] [Interpretation] to non-numeric (Ammir Left eye Narrative results) Lucila Ophthalmometer Physician) ID Date Data Source [id number] 04/26/2019 12:00:00 AM EST [facility] (Ammir Lucila Physician) Name Value Range Interpretation Description Data Sup porting Code Source(s) Document(s ) ORGANISM Abnormal (applies [facility] to non-numeric (Ammir results) Lucila Physician) Comment Normal (applies [facility] [Interpretation] to non-numeric (Ammir Left eye Narrative results) Lucila Ophthalmometer Physician) ID Date Data Source [id number] 04/26/2019 12:00:00 AM EST [facility] (Ammir Lucila Physician) Name Value Range Interpretation Description Data Sup porting Code Source(s) Document(s ) HISTOLOGY SEE NOTES Normal (applies to [facility] (Amm ir RESULT non-numeric Lucila results) Physician) ID Date Data Source [id number] 04/26/2019 12:00:00 AM EST [facility] (Ammir Lucila Physician) Name Value Range Interpretation Description Data Sup porting Code Source(s) Document(s ) ORGANISM Abnormal (applies [facility] to non-numeric (Ammir results) Lucila Physician) Comment Normal (applies [facility] [Interpretation] to non-numeric (Ammir Left eye Narrative results) Lucila Ophthalmometer Physician) ID Date Data Source [id number] 04/26/2019 12:00:00 AM EST [facility] (Ammir Lucila Physician) Name Value Range Interpretation Description Data Sup porting Code Source(s) Document(s ) HISTOLOGY SEE NOTES Normal (applies to [facility] (Amm ir RESULT non-numeric Lucila results) Physician) ID Date Data Source [id number] 04/26/2019 12:00:00 AM EST [facility] (Ammir Lucila Physician) Name Value Range Interpretation Description Data Sup porting Code Source(s) Document(s ) ORGANISM Abnormal (applies [facility] to non-numeric (Ammir results) Lucila Physician) Comment Normal (applies [facility] [Interpretation] to non-numeric (Ammir Left eye Narrative results) Lucila Ophthalmometer Physician) ID Date Data Source [id number] 04/26/2019 12:00:00 AM EST [facility] (Ammir Lucila Physician) Name Value Range Interpretation Description Data Sup porting Code Source(s) Document(s ) HISTOLOGY SEE NOTES Normal (applies to [facility] (Amm ir RESULT non-numeric Lucila results) Physician) ID Date Data Source [id number] 04/26/2019 12:00:00 AM EST [facility] (Ammir Lucila Physician) Name Value Range Interpretation Description Data Sup porting Code Source(s) Document(s ) HISTOLOGY SEE NOTES Normal (applies to [facility] (Amm ir RESULT non-numeric Lucila results) Physician) ID Date Data Source [id number] 04/26/2019 12:00:00 AM EST [facility] (Ammir Lucila Physician) Name Value Range Interpretation Description Data Sup porting Code Source(s) Document(s ) ORGANISM Abnormal (applies [facility] to non-numeric (Ammir results) Lucila Physician) Comment Normal (applies [facility] [Interpretation] to non-numeric (Ammir Left eye Narrative results) Lucila Ophthalmometer Physician) ID Date Data Source [id number] 04/26/2019 12:00:00 AM EST [facility] (Ammir Lucila Physician) Name Value Range Interpretation Description Data Sup porting Code Source(s) Document(s ) HISTOLOGY SEE NOTES Normal (applies to [facility] (Amm ir RESULT non-numeric Lucila results) Physician) ID Date Data Source [id number] 03/15/2019 12:00:00 AM EDT [facility] (Ammir Lucila [...] results) Lucila Physician) ID Date Data Source [id number] 03/15/2019 12:00:00 AM EDT [facility] (Ammir Lucila [...] EGFR NON AFR 100 Normal (applies [facility] [place] mL/min/1 to non-numeric (Ammir .73m2 results) Lucila Physician) EGFR AFR 121 Normal (applies [facility] [place] mL/min/1 to non-numeric (Ammir .73m2 results) Lucila Physician) ID Date Data Source [id number] 03/15/2019 12:00:00 AM EDT [facility] (Ammir Lucila [...] results) Lucila Physician) ID Date Data Source [id number] 03/15/2019 12:00:00 AM EDT [facility] (Ammir Lucila [...] Normal (applies [facility] to non-numeric (Ammir results) [facility] Physician) AST 19 U/L Normal (applies [facility] to non-numeric (Ammir results) Lucila Physician) EGFR NON AFR 100 Normal (applies [facility] [place] mL/min/1 to non-numeric (Ammir .73m2 results) Lucila Physician) EGFR AFR 121 Normal (applies [facility] [place] mL/min/1 to non-numeric (Ammir .73m2 results) Lucila Physician) ID Date Data Source [id number] 03/15/2019 12:00:00 AM EDT [facility] (Ammir Lucila Physician) Name Value Range Interpretation Description Data Sup porting Code Source(s) Document(s ) WBC 10.3 Normal (applies [facility] 10(3)/uL to non-numeric (Ammir results) Lucila Physician) RBC 4.6 Normal (applies [facility] 10(6)/uL to non-numeric (Ammir results) Lucila Physician) Hemoglobin 13.2 g/dL Normal (applies [facility] [Mass/volume] to non-numeric (Ammir in Mixed venous results) Lucial blood by Physician) Oximetry Hematocrit 39.6 % [...] results) Lucila Physician) ID Date Data Source [id number] 03/15/2019 12:00:00 AM EDT [facility] (Ammir Lucila [...] EGFR NON AFR 100 Normal (applies [facility] [place] mL/min/1 to non-numeric (Ammir .73m2 results) Lucila Physician) EGFR AFR 121 Normal (applies [facility] [place] mL/min/1 to non-numeric (Ammir .73m2 results) Lucila Physician) ID Date Data Source [id number] 03/15/2019 12:00:00 AM EDT [facility] (Ammir Lucila [...] volume to non-numeric (Ammir fraction] of results) [facility] Blood by Physician) Automated count MCV 85.9 [...] results) Lucila Physician) ID Date Data Source [id number] 03/15/2019 12:00:00 AM EDT [facility] (Ammir Lucila [...] EGFR NON AFR 100 Normal (applies [facility] [place] mL/min/1 to non-numeric (Ammir .73m2 results) Lucila Physician) EGFR AFR 121 Normal (applies [facility] [place] mL/min/1 to non-numeric (Ammir .73m2 results) Lucila Physician) ID Date Data Source [id number] 03/15/2019 12:00:00 AM EDT [facility] (Ammir Lucila [...] results) Lucila Physician) ID Date Data Source [id number] 03/15/2019 12:00:00 AM EDT [facility] (Ammir Lucila [...] EGFR NON AFR 100 Normal (applies [facility] [place] mL/min/1 to non-numeric (Ammir .73m2 results) Lucila Physician) EGFR AFR 121 Normal (applies [facility] [place] mL/min/1 to non-numeric (Ammir .73m2 results) Lucila Physician) ID Date Data Source [id number] 02/28/2019 12:00:00 AM EDT [facility] (Ammir Lucila [...] results) Lucila Physician) ID Date Data Source [id number] 02/28/2019 12:00:00 AM EDT [facility] (Ammir Lucila [...] EGFR NON AFR 100 Normal (applies [facility] [place] mL/min/1 to non-numeric (Ammir .73m2 results) Lucila Physician) EGFR AFR 121 Normal (applies [facility] [place] mL/min/1 to non-numeric (Ammir .73m2 results) Lucila Physician) ID Date Data Source [id number] 02/28/2019 12:00:00 AM EDT [facility] (Ammir Lucila [...] results) Lucila Physician) ID Date Data Source [id number] 02/28/2019 12:00:00 AM EDT [facility] (Ammir Lucila [...] EGFR NON AFR 100 Normal (applies [facility] [place] mL/min/1 to non-numeric (Ammir .73m2 results) Lucila Physician) EGFR AFR 121 Normal (applies [facility] [place] mL/min/1 to non-numeric (Ammir .73m2 results) Lucila Physician) ID Date Data Source [id number] 02/28/2019 12:00:00 AM EDT [facility] (Ammir Lucila [...] results) Lucila Physician) ID Date Data Source [id number] 02/28/2019 12:00:00 AM EDT [facility] (Ammir Lucila [...] EGFR NON AFR 100 Normal (applies [facility] [place] mL/min/1 to non-numeric (Ammir .73m2 results) Lucila Physician) EGFR AFR 121 Normal (applies [facility] [place] mL/min/1 to non-numeric (Ammir .73m2 results) Lucila Physician) ID Date Data Source [id number] 02/28/2019 12:00:00 AM EDT [facility] (Ammir Lucila [...] results) Lucila Physician) ID Date Data Source [id number] 02/28/2019 12:00:00 AM EDT [facility] (Ammir Lucila [...] EGFR NON AFR 100 Normal (applies [facility] [place] mL/min/1 to non-numeric (Ammir .73m2 results) Lucila Physician) EGFR AFR 121 Normal (applies [facility] [place] mL/min/1 to non-numeric (Ammir .73m2 results) Lucila Physician) ID Date Data Source [id number] 02/28/2019 12:00:00 AM EDT [facility] (Ammir Lucila [...] 0.90 Above high normal [facility] 10(3)/uL (Ammir Lucial Physician) Basophil Abs 0.07 Normal (applies [facility] [...] results) Lucila Physician) ID Date Data Source [id number] 02/28/2019 12:00:00 AM EDT [facility] (Ammir Lucila [...] EGFR NON AFR 100 Normal (applies [facility] [place] mL/min/1 to non-numeric (Ammir .73m2 results) Lucila Physician) EGFR AFR 121 Normal (applies [facility] [place] mL/min/1 to non-numeric (Ammir .73m2 results) Lucila Physician) ID Date Data Source [id number] 01/01/2019 12:00:00 AM EDT [facility] (Ammir Lucila [...] Lucila results) Physician) ID Date Data Source [id number] 01/01/2019 12:00:00 AM EDT [facility] (Ammir Lucila Physician) Name Value Range Interpretation Description Data Sup porting Code Source(s) Document(s ) Hemoglobin A1c 7.4 % of Above high normal [facility] in Blood total Hgb (Ammir Lucila Physician) ID Date Data Source [id number] 01/01/2019 12:00:00 AM EDT [facility] (Ammir Lucila [...] results) Lucila Physician) ID Date Data Source [id number] 01/01/2019 12:00:00 AM EDT [facility] (Ammir Lucila [...] EGFR NON AFR 77 Normal (applies [facility] [place] mL/min/1 to non-numeric (Ammir .73m2 results) Lucila Physician) EGFR 89 Normal (applies [facility] [place] mL/min/1 to non-numeric (Ammir .73m2 results) Lucila Physician) ID Date Data Source [id number] 01/01/2019 12:00:00 AM EDT [facility] (Ammir Lucila [...] Lucila results) Physician) ID Date Data Source [id number] 01/01/2019 12:00:00 AM EDT [facility] (Ammir Lucila Physician) Name Value Range Interpretation Description Data Sup porting Code Source(s) Document(s ) Hemoglobin A1c 7.4 % of Above high normal [facility] in Blood total Hgb (Ammir Lucila Physician) ID Date Data Source [id number] 01/01/2019 12:00:00 AM EDT [facility] (Ammir Lucila [...] results) Lucila Physician) ID Date Data Source [id number] 01/01/2019 12:00:00 AM EDT [facility] (Ammir Lucila [...] EGFR NON AFR 77 Normal (applies [facility] [place] mL/min/1 to non-numeric (Ammir .73m2 results) Lucila Physician) EGFR 89 Normal (applies [facility] [place] mL/min/1 to non-numeric (Ammir .73m2 results) Lucila Physician) ID Date Data Source [id number] 01/01/2019 12:00:00 AM EDT [facility] (Ammir Lucila [...] Lucila results) Physician) ID Date Data Source [id number] 01/01/2019 12:00:00 AM EDT [facility] (Ammir Lucila [...] results) Lucila Physician) ID Date Data Source [id number] 01/01/2019 12:00:00 AM EDT [facility] (Ammir Lucila [...] EGFR NON AFR 77 Normal (applies [facility] [place] mL/min/1 to non-numeric (Ammir .73m2 results) Lucila Physician) EGFR 89 Normal (applies [facility] [place] mL/min/1 to non-numeric (Ammir .73m2 results) Lucila Physician) ID Date Data Source [id number] 01/01/2019 12:00:00 AM EDT [facility] (Ammir Lucila [...] Lucila results) Physician) ID Date Data Source [id number] 01/01/2019 12:00:00 AM EDT [facility] (Ammir Lucila Physician) Name Value Range Interpretation Description Data Sup porting Code Source(s) Document(s ) Hemoglobin A1c 7.4 % of Above high normal [facility] in Blood total Hgb (Ammir Lucila Physician) ID Date Data Source [id number] 01/01/2019 12:00:00 AM EDT [facility] (Ammir Lucila [...] results) Lucila Physician) ID Date Data Source [id number] 01/01/2019 12:00:00 AM EDT [facility] (Ammir Lucila [...] EGFR NON AFR 77 Normal (applies [facility] [place] mL/min/1 to non-numeric (Ammir .73m2 results) Lucila Physician) EGFR 89 Normal (applies [facility] [place] mL/min/1 to non-numeric (Ammir .73m2 results) Lucila Physician) ID Date Data Source [id number] 01/01/2019 12:00:00 AM EDT [facility] (Ammir Lucila [...] Lucila results) Physician) ID Date Data Source [id number] 01/01/2019 12:00:00 AM EDT [facility] (Ammir Lucila Physician) Name Value Range Interpretation Description Data Sup porting Code Source(s) Document(s ) Hemoglobin A1c 7.4 % of Above high normal [facility] in Blood total Hgb (Ammir Lucila Physician) ID Date Data Source [id number] 01/01/2019 12:00:00 AM EDT [facility] (Ammir Lucila [...] results) Lucila Physician) ID Date Data Source [id number] 01/01/2019 12:00:00 AM EDT [facility] (Ammir Lucila [...] Lucila Physician) EGFR 89 Normal (applies [facility] MALTESE mL/min/1 to non-numeric (Ammir .73m2 results) Lucila Physician) EGFR NON AFR 77 Normal (applies [facility] [place] mL/min/1 to non-numeric (Ammir .73m2 results) Lucila [...] mm[Hg] 142 mm[Hg] [facility] (Am brooks pressure Ulcila Physician) Body weight 236 lb 236 lb [...] oxygen 98 % 98 % [facility] (Am broosk concentration Lucila Physician) Body mass index 29.5 [...]
[2020-02-27 09:15] LABS: INR 1.17 (0.83-1.09); PROTHROMBIN TIME (PATIENT) 13.8 SEC (9.7-13.0)
[2020-02-27 09:18] LABS: ACTIVATED PTT 29.5 SECONDS (25.2-36.5)
--- NOTE | 2020-02-27 09:34 | HP ---
Satellite H - Chief Complaint Chief Complaint: right knee pain - Past Medical History Allergies/Adverse Reactions: Allergies Allergy/AdvReac Type Severity Reaction Status Date / Time ibuprofen [From Advil] Allergy Unknown Vomiting Verified 02/23/20 10:37 acetaminophen [From Tylenol] AdvReac Mild Vomiting Verified 02/23/20 10:37 azithromycin [From Zithromax] AdvReac Mild Vomiting Verified 02/23/20 10:37 Cardiovascular: Yes: CHF, HTN, Hyperlipdemia Pulmonary: Yes: COPD Gastrointestinal: Yes: Constipation, Ulcerative Colitis (PULM/CCM ) Renal/: Yes: BPH, Cancer (prostate cancer) Endocrine: Yes: Diabetes Mellitus - Current Medications Current Medications: Home Medications Medication Instructions Recorded Rosuvastatin [Crestor -] 10 mg PO DAILY 12/05/16 Furosemide [Lasix -] 20 mg PO DAILY 10/09/17 Tamsulosin HCl [Flomax -] 0.8 mg PO DAILY@1800 #60 cap.er.24h 02/21/19 metFORMIN HCL [Glucophage -] 500 mg PO BID@0700,1630 #60 tablet 02/21/19 Bicalutamide 50 mg PO DAILY 12/17/19 Metoprolol Tartrate 12.5 mg PO DAILY 12/17/19 Warfarin Na [Coumadin] 6 mg PO DAILY 12/17/19 Erythromycin 0.5% Eye Ointment 1 applic OS BID 7 Days #1 tube 02/23/20 [Erythromycin 0.5% Eye Ointment -] Aspirin 81 mg PO DAILY 02/26/20 Satellite Physical Exam - Physical Examination Vital Signs: Vital Signs Period Temp Pulse Resp BP Sys/Hall Pulse Ox Last 24 Hr 96.8 F 62 20 131/65 98-98 General Appearance: Well Nourished, Well Developed, Alert & Oriented x3 ENT: Clear Lung: Normal air movement Extremities: Other (right knee- + swelling, + ttp, decr rom, + mcmurrays, nvi) Neurological: Intact, Alert, Oriented Satellite Impression/Plan - Impression/Plan Impression: right knee internal derangement Operative Procedure: right knee arthroscopy Date to be Performed: 02/27/20
[2020-02-27] MEDS ORDERED: PROPOFOL 20 ML ONE ×2 (10:21→11:05)
[2020-02-27] MEDS ORDERED: MIDAZOLAM HCL 2 MG/2 ML SINGLE DOSE VIAL ONE (10:21)
[2020-02-27] MEDS ORDERED: ceFAZolin SODIUM 1 GM VIAL ONE (11:06)
[2020-02-27] MEDS ORDERED: LIDOCAINE 1%/EPI 1:100000 (50 ML MULTI DOSE VIAL) NR ONE (11:12)
[2020-02-27] MEDS ORDERED: BUPIVACAINE HCL/PF 0.5% (5 MG/ML) 30 ML VIAL IJ ONE ×2 (11:12→11:25)
[2020-02-27] MEDS ORDERED: ALBUTEROL SO4 0.083% IH SOL 2.5 MG/3 ML VIAL.NEB. NEB ONE ×2 (11:39→12:14)
--- NOTE | 2020-02-27 12:06 | OP ---
Operative Note - Note: Operative Date: 02/27/20 ([facility]) Pre-Operative Diagnosis: right knee internal derangement Operation: right knee arthroscopy with PMM, PLM, debridement chondroplasty trochlea Post-Operative Diagnosis: Same as Pre-op Surgeon: Roland Drake Anesthesia: General, Local Specimens Removed: shavings Estimated Blood Loss (mls): 5
[2020-02-27] MEDS ORDERED: ONDANSETRON 4 MG/2 ML VIAL IVPUSH PRN (12:13)
[2020-02-27] MEDS ORDERED: oxyCODONE HCL 5 MG TABLET PO PRN ×2 (12:13)
[2020-02-27] MEDS ORDERED: LACTATED RINGERS SOLUTION 1,000 ML IV SCH (12:15)
[2020-02-27] MEDS ORDERED: KETOROLAC TROMETHAMINE 30 MG/1 ML VIAL ONE (12:16)
[2020-02-27] MEDS ORDERED: DEXAMETHASONE SOD PHOSPHATE 4 MG/1 ML VIAL ONE (12:16)
--- NOTE | 2020-02-27 12:57 | OP ---
DATE OF OPERATION: 02/27/2020 PREOPERATIVE DIAGNOSIS: Internal derangement right knee. POSTOPERATIVE DIAGNOSIS: Internal derangement right knee. PROCEDURE: Arthroscopy, right knee partial medial and lateral meniscectomy, and chondroplasty of the trochlea. SURGICAL ATTENDING: Roland Drake MD ANESTHESIA: General with LMA. CLOSURE: 4-0 nylon. COMPLICATIONS: None. CONDITION: To recovery room in stable condition. DESCRIPTION OF OPERATIVE PROCEDURE: Patient was taken to the operating room on February 27, 2020. General anesthesia with LMA was administered by the anesthesiologist. The right lower extremity was prepped and draped in the usual sterile fashion. The medial and lateral infrapatellar portal sites were infiltrated with 1% Xylocaine with epinephrine. The scope was placed in the lateral infrapatellar portal and up into the suprapatellar pouch. The knee was inflated with a cocktail of 10 mL of 1% Xylocaine, 10 mL of 0.5% Marcaine, and 20 mL of arthroscopic saline. After allowing the anesthetic to work, the procedure was performed. The medial and lateral gutters were visualized to be intact. The undersurface of the patella and trochlea were found to have some grade 3 to 4 changes especially on the trochlea. Any loose articular cartilage was dbrided using the shaver. The medial compartment was then entered. The medial meniscus was visualized, probed, and found to have a complex tear of the posterior horn. This was dbrided back to smooth stable meniscal tissue using a meniscal biter and arthroscopic shaver. The medial femoral condyle was run and found to be intact as well as the medial tibial plateau. At 90 degrees, the ACL was visualized, probed, and found to be intact. In the figure 4 position, the lateral compartment was entered. The lateral meniscus was visualized, probed, and found to have a complex tear of its midportion. This was dbrided back to smooth stable meniscal tissue using a meniscal biter and arthroscopic shaver. The lateral femoral condyle was run and found to be intact as was the lateral tibial plateau. The knee was irrigated with copious amounts of irrigation and the portals were closed using 4-0 nylon. Prior to closure, 20 mL of 0.5% Marcaine was infused into the knee for postoperative analgesia. The patient awakened from anesthesia and transferred to recovery in stable condition. No complication. Estimated blood loss negligible. ROLAND DRAKE M.D. [id number]
[2020-02-27 12:58] VITALS: TEMP 97.8
[2020-02-27 19:53] VITALS: BP 130/60; PULSE 76
--- NOTE | 2020-02-29 17:10 | PATH ---
Surgical Pathology Report Patient Name: BENJAMIN BRODERICK Med. Rec. #: [id number] /Age/Gender: 1945 (Age: 74) / M Account: [id number] Location: [facility] SURGICAL Taken: 02/27/2020 Received: 02/27/2020 Reported: 02/29/2020 Physicians: Roland Drake M.D. Specimen(s) Received RIGHT KNEE SHAVINGS Clinical History Tear right knee Final Diagnosis RIGHT KNEE SHAVINGS: FIBROADIPOSE TISSUE AND SYNOVIAL TISSUE WITH FOCAL REACTIVE CHANGE. FRAGMENTS OF CARTILAGE WITH CHONDROCALCINOSIS. Electronically Signed Pito Ambrose M.D. Gross Description Received in formalin, labeled "right knee shavings," is a 3.5 x 3.5 x 0.3 cm. aggregate of simon-yellow soft tissue fragments. A sales representative livestock portion is submitted in one cassette. DL/02/27/2020 saudi02/27/2020
== END 2020-02-27 14:45 | disposition home or self-care (01) ==
LOC: JASU-SURG 04:45
PROVIDERS: ATTEND Orthopaedic Surgery
PROC: 0SBC4ZZ Excision of Right Knee Joint, Percutaneous Endoscopic Approach (ICD-10-PCS; 2020-02-27)
PROC: 0SBC4ZZ Excision of Right Knee Joint, Percutaneous Endoscopic Approach (ICD-10-PCS; principal; 2020-02-27 10:45)
DX: M23.221 Derangement of posterior horn of medial meniscus due to old tear or injury, right knee (principal); M23.222 Derangement of posterior horn of medial meniscus due to old tear or injury, left knee; I10 Essential (primary) hypertension
CPT/HCPCS: 29880; G0289; 36415; 82962; 85610; 85730; 88304-TC; 94760

== ENCOUNTER 2020-07-01 13:55 | Inpatient (IN) | payer OTHER ==
[2020-07-01 14:26] VITALS: BMI 34.7
[2020-07-01] MEDS ORDERED: diazePAM 5 MG TABLET PO ONE (15:20)
[2020-07-01] MEDS ORDERED: diazePAM 5 MG TABLET ONE (15:31)
[2020-07-01 16:03] LABS: BASO % 1.8 % (0-2.0); EOS % 5.8 % (0-4.5); HEMATOCRIT 39.4 % (35.4-49); HEMOGLOBIN 13.2 GM/dL (11.7-16.9); LYMPH % 18.4 % (8-40); MCH 28.7 pg (25.7-33.7); MCHC 33.4 g/dl (32.0-35.9); MEAN CELL VOLUME 85.9 fl (80-96); MONO % 8.8 % (3.8-10.2); NEUT % 65.2 % (42.8-82.8); PLATELET COUNT 321 K/MM3 (134-434); RBC 4.59 M/mm3 (4.00-5.60); RDW 12.9 % (11.9-15.9); WHITE BLOOD COUNT 11.4 K/mm3 (4.0-10.0)
[2020-07-01 16:15] LABS: CHLORIDE 103 mmol/L (98-107); POTASSIUM 3.5 mmol/L (3.5-5.1); SODIUM 138 mmol/L (136-145)
[2020-07-01 16:19] LABS: ALBUMIN 3.4 g/dl (3.4-5.0); ANION GAP 7 MMOL/L (8-16); BLOOD UREA NITROGEN 10.1 mg/dL (7-18); CO2 28 mmol/L (21-32); GLUCOSE,RANDOM 138 mg/dL (74-106)
[2020-07-01 16:22] LABS: SGOT/AST 12 U/L (15-37); SGPT/ALT 22 U/L (13-61)
[2020-07-01 16:23] LABS: TOT PROT 7.5 g/dl (6.4-8.2)
[2020-07-01 16:24] LABS: BILIRUBIN,TOTAL 0.6 mg/dL (0.2-1)
[2020-07-01 16:25] LABS: ALK PHOS 73 U/L (45-117)
[2020-07-01 16:26] LABS: N-TERMINAL BNP 627.9 pg/ml (5-450)
[2020-07-01] MEDS ORDERED: morphine CARPU-JECT 2 MG/1 ML DISP.SYRIN IVPUSH ONE (18:49)
[2020-07-01] MEDS ORDERED: MORPHINE SULFATE 2 MG/ML VIAL ONE (18:53)
[2020-07-01] MEDS ORDERED: DEXAMETHASONE SOD PHOSPHATE 10 MG/1 ML VIAL IVPUSH ONE (19:38)
[2020-07-01] MEDS ORDERED: DEXAMETHASONE SOD PHOSPHATE 10 MG/1 ML VIAL ONE (19:46)
[2020-07-02 00:41] LABS: INR 2.55 (0.83-1.09); PROTHROMBIN TIME (PATIENT) 30.5 SEC (9.7-13.0)
[2020-07-02] MEDS ORDERED: ALBUTEROL SO4 0.083% IH SOL 2.5 MG/3 ML VIAL.NEB. NEB PRN (08:06)
[2020-07-02 09:03] LABS: BASO % 0.2 % (0-2.0); EOS % 0.1 % (0-4.5); HEMOGLOBIN 12.7 GM/dL (11.7-16.9); LYMPH % 10.7 % (8-40); MCH 28.7 pg (25.7-33.7); MCHC 33.4 g/dl (32.0-35.9); MEAN CELL VOLUME 85.9 fl (80-96); MEAN PLT VOLUME 9.4 fl (7.5-11.1); MONO % 3.1 % (3.8-10.2); NEUT % 85.9 % (42.8-82.8); PLATELET COUNT 328 K/MM3 (134-434); RBC 4.42 M/mm3 (4.00-5.60); RDW 12.9 % (11.9-15.9); WHITE BLOOD COUNT 11.4 K/mm3 (4.0-10.0)
[2020-07-02 09:13] LABS: POTASSIUM 4.5 mmol/L (3.5-5.1)
[2020-07-02 09:21] LABS: ALBUMIN 3.3 g/dl (3.4-5.0); CALCIUM 9.9 mg/dL (8.5-10.1)
[2020-07-02 09:26] LABS: BILIRUBIN,TOTAL 0.6 mg/dL (0.2-1); TOT PROT 7.4 g/dl (6.4-8.2)
[2020-07-02] MEDS ORDERED: ASPIRIN 81 MG CHEWABLE TABLETS PO SCH (10:00)
[2020-07-02] MEDS ORDERED: METOPROLOL TARTRATE 25 MG TABLET (FP) PO SCH (10:00)
[2020-07-02] MEDS ORDERED: BICALUTAMIDE 50 MG TABLET (FP) PO SCH (10:00)
[2020-07-02] MEDS ORDERED: FUROSEMIDE 20 MG TABLET (FP) PO SCH (10:00)
[2020-07-02 10:57] LABS: INR 2.43 (0.83-1.09); PROTHROMBIN TIME (PATIENT) 28.7 SEC (9.7-13.0)
[2020-07-02] MEDS ORDERED: METOPROLOL TARTRATE 25 MG TABLET (FP) ONE (11:57)
[2020-07-02] MEDS ORDERED: ASPIRIN 81 MG CHEWABLE TABLETS ONE (11:57)
[2020-07-02] MEDS ORDERED: FUROSEMIDE 40 MG TABLET (FP) ONE (11:58)
[2020-07-02] MEDS: INSULIN SLIDING SCALE (NOVOLOG) 1 VIAL SQ SCH ×2 (12:36→16:55)
[2020-07-02] MEDS ORDERED: diazePAM 5 MG TABLET PO ONE (13:00)
[2020-07-02] MEDS ORDERED: predniSONE 20 MG TABLET (UD) PO ONE (13:00)
[2020-07-02] MEDS ORDERED: diazePAM 5 MG TABLET ONE (13:38)
[2020-07-02] MEDS ORDERED: predniSONE 20 MG TABLET (UD) ONE (13:38)
[2020-07-02] MEDS ORDERED: metFORMIN HCL 500 MG TABLET (FP) PO SCH (16:30)
[2020-07-02] MEDS ORDERED: metFORMIN HCL 500 MG TABLET (FP) ONE (17:00)
[2020-07-02] MEDS ORDERED: TAMSULOSIN HCL 0.4 MG CAP ONE (17:00)
[2020-07-02 17:30] VITALS: BP 130/86; PULSE 89; TEMP 98.4
[2020-07-02] MEDS ORDERED: TAMSULOSIN HCL 0.4 MG CAP PO SCH (18:00)
[2020-07-02] MEDS ORDERED: WARFARIN NA 3 MG TABLET PO SCH (18:00)
[2020-07-02] MEDS ORDERED: ROSUVASTATIN CA 10 MG TABLET (FP) PO SCH (22:00)
== END 2020-07-02 17:55 | disposition home or self-care (01) | DRG 293 ==
LOC: JER 13:55 → JERBED 19:08
PROVIDERS: ADMIT Internal Medicine; ATTEND Family Medicine
DX: I11.0 Hypertensive heart disease with heart failure (principal); I50.32 Chronic diastolic (congestive) heart failure; I48.91 Unspecified atrial fibrillation; I45.10 Unspecified right bundle-branch block; E78.5 Hyperlipidemia, unspecified; J42 Unspecified chronic bronchitis; K59.09 Other constipation; N40.0 Benign prostatic hyperplasia without lower urinary tract symptoms; B94.8 Sequelae of other specified infectious and parasitic diseases; E11.9 Type 2 diabetes mellitus without complications; M54.2 Cervicalgia; E66.8 Other obesity; Z68.34 Body mass index [BMI] 34.0-34.9, adult; Z85.46 Personal history of malignant neoplasm of prostate; Z79.4 Long term (current) use of insulin; Z20.822 Contact with and (suspected) exposure to COVID-19
CPT/HCPCS: 36415; 71046-TC-FY; 80053; 82550; 82553; 82962; 83880; 84484; 85025; 85610; 93005; 93010; 93306-TC; 99285-25; C9803; J1100; U0003

== ENCOUNTER 2021-01-27 12:16 | Inpatient (IN) | payer OTHER ==
[2021-01-27] MEDS ORDERED: PT OWN MED DRAWER 7, Y5N ONE (13:54)
[2021-01-27] MEDS ORDERED: methylPREDNISolone NA SUCC 125 MG/2 ML VIAL IVPUSH ONE (13:54)
[2021-01-27] MEDS ORDERED: AZITHROMYCIN IVPB 500 MG in DEXTROSE 5%-WATER - 250 ML IVPB ONE (13:59)
[2021-01-27] MEDS ORDERED: MAGNESIUM SULF 50% (8.12 MEQ/2 ML-1 GM VIAL) IVPB ONE (14:03)
[2021-01-27] MEDS ORDERED: MAGNESIUM SULFATE IN WATER 2 GM/50 ML IVPB IVPB ONE (14:15)
[2021-01-27] MEDS ORDERED: ALBUTEROL SO4 2.5/IPRATROPIUM 0.5 INH SOL 3 ML VIAL.NEB. NEB ONE (14:15)
[2021-01-27] MEDS ORDERED: methylPREDNISolone NA SUCC 125 MG/2 ML VIAL ONE (14:15)
[2021-01-27] MEDS: ALBUTEROL SO4 2.5/IPRATROPIUM 0.5 INH SOL 3 ML VIAL.NEB. NEB SCH ×4 (14:26→15:13)
[2021-01-27 14:27] LABS: VENOUS BASE EXCESS 5.2 mmol/L (-2-2); VENOUS O2 SATURATION 75.1 % (70-80); VENOUS PCO2 50.5 mmHg (38-52); VENOUS PH 7.41 (7.310-7.410)
[2021-01-27 14:40] LABS: HEMATOCRIT 34.5 % (35.4-49); HEMOGLOBIN 11.6 GM/dL (11.7-16.9); MCH 29.3 pg (25.7-33.7); MCHC 33.5 g/dl (32.0-35.9); MEAN CELL VOLUME 87.5 fl (80-96); MEAN PLT VOLUME 8.1 fl (7.5-11.1); PLATELET COUNT 272 10^3/uL (134-434); RBC 3.94 M/mm3 (4.00-5.60)
[2021-01-27 14:50] LABS: CHLORIDE 107 mmol/L (98-107); SODIUM 142 mmol/L (136-145)
[2021-01-27 14:52] LABS: ALBUMIN 3.2 g/dl (3.4-5.0); ANION GAP 7 MMOL/L (8-16); BLOOD UREA NITROGEN 10.5 mg/dL (7-18); CALCIUM 9.2 mg/dL (8.5-10.1); CO2 29 mmol/L (21-32)
[2021-01-27 14:53] LABS: GLUCOSE,RANDOM 118 mg/dL (74-106)
[2021-01-27 14:55] LABS: SGPT/ALT 25 U/L (13-61)
[2021-01-27 14:56] LABS: BILIRUBIN,TOTAL 0.5 mg/dL (0.2-1); CREATININE 0.9 mg/dL (0.55-1.3); SGOT/AST 12 U/L (15-37); TOT PROT 6.7 g/dl (6.4-8.2)
[2021-01-27 14:58] LABS: ALK PHOS 50 U/L (45-117)
[2021-01-27 15:00] LABS: N-TERMINAL BNP 332.6 pg/ml (5-450)
[2021-01-27] MEDS ORDERED: POTASSIUM CHLORIDE TABS 20 MEQ TABLET.ER (FP) PO ONE ×2 (15:04→15:22)
[2021-01-27] MEDS ORDERED: AZITHROMYCIN IVPB 500 MG/250 ML BAG IVPB ONE (15:22)
[2021-01-27 15:28] LABS: MAGNESIUM 1.9 mg/dL (1.8-2.4)
[2021-01-27 15:30] LABS: PHOSPHOROUS 2.7 mg/dL (2.5-4.9)
[2021-01-27 17:40] LABS: ANISOCYTOSIS 0; MACROCYTOSIS 0; PLATELET ESTIMATE NORMAL
[2021-01-28] MEDS: BUDESONIDE/FORMETEROL FUMARATE 80/4.5 mcg INHALER IH SCH ×3 (03:14→21:02)
[2021-01-28 08:33] LABS: BASO % 0.4 % (0-2.0); EOS % 0.1 % (0-4.5); HEMATOCRIT 33.4 % (35.4-49); HEMOGLOBIN 11.2 GM/dL (11.7-16.9); LYMPH % 8.7 % (8-40); MCH 29.4 pg (25.7-33.7); MCHC 33.7 g/dl (32.0-35.9); MEAN CELL VOLUME 87.2 fl (80-96); MEAN PLT VOLUME 8.6 fl (7.5-11.1); MONO % 5.2 % (3.8-10.2); NEUT % 85.6 % (42.8-82.8); PLATELET COUNT 280 10^3/uL (134-434); PROTHROMBIN TIME (PATIENT) 51.3 SEC (9.7-13.0); RBC 3.83 M/mm3 (4.00-5.60); RDW 14.2 % (11.9-15.9); WHITE BLOOD COUNT 15.3 K/mm3 (4.0-10.0)
[2021-01-28 08:58] LABS: CREATININE 0.8 mg/dL (0.55-1.3)
[2021-01-28 09:00] LABS: BILIRUBIN,TOTAL 1.2 mg/dL (0.2-1); BLOOD UREA NITROGEN 14.7 mg/dL (7-18); CALCIUM 9.5 mg/dL (8.5-10.1); TOT PROT 6.8 g/dl (6.4-8.2)
[2021-01-28 09:01] LABS: ALBUMIN 3.1 g/dl (3.4-5.0)
[2021-01-28] MEDS ORDERED: PT OWN MED DRAWER 7, Y5N ONE ×2 (11:14→15:46)
[2021-01-28] MEDS: AZITHROMYCIN 250 MG TABLET PO SCH ×2 (11:25→11:53)
[2021-01-28] MEDS: FUROSEMIDE 40 MG/4 ML INJECTABLE VIAL IVPUSH SCH (11:25)
[2021-01-28] MEDS: ASPIRIN 81 MG CHEWABLE TABLETS PO SCH (11:25)
[2021-01-28] MEDS: methylPREDNISolone NA SUCC 40 MG/1 ML VIAL IVPUSH SCH ×2 (11:26→18:06)
[2021-01-28] MEDS: metoPROLOL SUCCINATE 25 MG TAB.SR.24H (FP) PO SCH (11:26)
[2021-01-28 11:46] LABS: INR 4.46 (0.83-1.09)
[2021-01-28] MEDS ORDERED: POTASSIUM CHLORIDE TABS 20 MEQ TABLET.ER (FP) PO ONE (12:00)
[2021-01-28] MEDS: rOPINIRole HCL 1 MG TABLET (FP) PO SCH (15:49)
[2021-01-28] MEDS ORDERED: DEXTROSE 5%-WATER - 50 ML IVPB ONE (17:51)
[2021-01-28] MEDS ORDERED: cefTRIAXone SODIUM 1 GM VIAL ONE (17:51)
[2021-01-28] MEDS: CEFTRIAXONE 1 GM in DEXTROSE 5%-WATER - 50 ML IVPB SCH (18:06)
[2021-01-28] MEDS ORDERED: INSULIN (NOVOLOG) ASPART 100 UNITS/ML 10ML VIAL ONE (20:41)
[2021-01-28] MEDS: ROSUVASTATIN CA 10 MG TABLET (FP) PO SCH (21:03)
[2021-01-28] MEDS: INSULIN SLIDING SCALE (NOVOLOG) 1 VIAL SQ SCH (21:03)
[2021-01-28] MEDS: MONTELUKAST NA 10 MG TABLET PO SCH (21:03)
[2021-01-29] MEDS: methylPREDNISolone NA SUCC 40 MG/1 ML VIAL IVPUSH SCH ×3 (01:04→17:47)
[2021-01-29] MEDS: sitaGLIPtin PHOSPHATE 50 MG TABLET PO SCH (06:29)
[2021-01-29] MEDS: INSULIN SLIDING SCALE (NOVOLOG) 1 VIAL SQ SCH ×4 (06:29→22:10)
[2021-01-29] MEDS: ALBUTEROL SO4 2.5/IPRATROPIUM 0.5 INH SOL 3 ML VIAL.NEB. NEB PRN ×3 (07:42→20:20)
[2021-01-29] MEDS ORDERED: DEXTROSE 5%-WATER - 50 ML IVPB ONE (08:53)
[2021-01-29] MEDS ORDERED: cefTRIAXone SODIUM 1 GM VIAL ONE (08:53)
[2021-01-29 09:09] LABS: HEMOGLOBIN 12.2 GM/dL (11.7-16.9); MCH 29.4 pg (25.7-33.7); MCHC 33.8 g/dl (32.0-35.9); MEAN PLT VOLUME 8.7 fl (7.5-11.1); PLATELET COUNT 302 10^3/uL (134-434); RBC 4.14 M/mm3 (4.00-5.60); WHITE BLOOD COUNT 17.8 K/mm3 (4.0-10.0)
[2021-01-29 09:27] LABS: CALCIUM 9.8 mg/dL (8.5-10.1); MAGNESIUM 2.6 mg/dL (1.8-2.4)
[2021-01-29 09:30] LABS: ALBUMIN 3.4 g/dl (3.4-5.0); BLOOD UREA NITROGEN 17.1 mg/dL (7-18)
[2021-01-29 09:33] LABS: CREATININE 0.9 mg/dL (0.55-1.3)
[2021-01-29 09:35] LABS: BILIRUBIN,TOTAL 0.7 mg/dL (0.2-1); TOT PROT 7.6 g/dl (6.4-8.2)
[2021-01-29 09:42] LABS: INR 2.5 (0.83-1.09)
[2021-01-29] MEDS ORDERED: AZITHROMYCIN 250 MG TABLET PO SCH (10:00)
[2021-01-29] MEDS: FUROSEMIDE 40 MG/4 ML INJECTABLE VIAL IVPUSH SCH (10:05)
[2021-01-29] MEDS: rOPINIRole HCL 1 MG TABLET (FP) PO SCH (10:05)
[2021-01-29] MEDS: CEFTRIAXONE 1 GM in DEXTROSE 5%-WATER - 50 ML IVPB SCH (10:05)
[2021-01-29] MEDS: metoPROLOL SUCCINATE 25 MG TAB.SR.24H (FP) PO SCH (10:06)
[2021-01-29] MEDS: BUDESONIDE/FORMETEROL FUMARATE 80/4.5 mcg INHALER IH SCH ×2 (10:06→22:12)
[2021-01-29] MEDS: ASPIRIN 81 MG CHEWABLE TABLETS PO SCH (10:06)
[2021-01-29] MEDS: TAMSULOSIN HCL 0.4 MG CAP PO SCH (10:06)
[2021-01-29] MEDS: BICALUTAMIDE 50 MG TABLET (FP) PO SCH (10:06)
[2021-01-29] MEDS ORDERED: INSULIN (NOVOLOG) ASPART 100 UNITS/ML 10ML VIAL ONE (10:27)
[2021-01-29] MEDS ORDERED: WARFARIN NA 2 MG TABLET PO SCH (18:00)
[2021-01-29] MEDS: MONTELUKAST NA 10 MG TABLET PO SCH (22:09)
[2021-01-29] MEDS: ROSUVASTATIN CA 10 MG TABLET (FP) PO SCH (22:09)
[2021-01-30] MEDS: methylPREDNISolone NA SUCC 40 MG/1 ML VIAL IVPUSH SCH ×2 (02:25→10:02)
[2021-01-30] MEDS ORDERED: PT OWN MED DRAWER 7, Y5N ONE (06:42)
[2021-01-30] MEDS: sitaGLIPtin PHOSPHATE 50 MG TABLET PO SCH (06:46)
[2021-01-30] MEDS: INSULIN SLIDING SCALE (NOVOLOG) 1 VIAL SQ SCH ×4 (06:47→21:11)
[2021-01-30] MEDS: ALBUTEROL SO4 2.5/IPRATROPIUM 0.5 INH SOL 3 ML VIAL.NEB. NEB PRN ×3 (07:50→20:20)
[2021-01-30 09:09] LABS: HEMATOCRIT 34.3 % (35.4-49); HEMOGLOBIN 11.5 GM/dL (11.7-16.9); MCH 29.1 pg (25.7-33.7); MCHC 33.5 g/dl (32.0-35.9); MEAN CELL VOLUME 86.9 fl (80-96); MEAN PLT VOLUME 8.3 fl (7.5-11.1); PLATELET COUNT 277 10^3/uL (134-434); RBC 3.95 M/mm3 (4.00-5.60); RDW 14.1 % (11.9-15.9); WHITE BLOOD COUNT 20.8 K/mm3 (4.0-10.0)
[2021-01-30] MEDS ORDERED: cefTRIAXone SODIUM 1 GM VIAL ONE (09:16)
[2021-01-30] MEDS ORDERED: DEXTROSE 5%-WATER - 50 ML IVPB ONE (09:16)
[2021-01-30 09:19] LABS: INR 2.03 (0.83-1.09); PROTHROMBIN TIME (PATIENT) 24.1 SEC (9.7-13.0)
[2021-01-30 09:30] LABS: CALCIUM 9.6 mg/dL (8.5-10.1)
[2021-01-30 09:31] LABS: BLOOD UREA NITROGEN 30.6 mg/dL (7-18)
[2021-01-30 09:35] LABS: BILIRUBIN,TOTAL 0.4 mg/dL (0.2-1); TOT PROT 6.6 g/dl (6.4-8.2)
[2021-01-30] MEDS: TAMSULOSIN HCL 0.4 MG CAP PO SCH (10:02)
[2021-01-30] MEDS: rOPINIRole HCL 1 MG TABLET (FP) PO SCH (10:02)
[2021-01-30] MEDS: FUROSEMIDE 40 MG/4 ML INJECTABLE VIAL IVPUSH SCH (10:02)
[2021-01-30] MEDS: metoPROLOL SUCCINATE 25 MG TAB.SR.24H (FP) PO SCH (10:02)
[2021-01-30] MEDS: ASPIRIN 81 MG CHEWABLE TABLETS PO SCH (10:03)
[2021-01-30] MEDS: BICALUTAMIDE 50 MG TABLET (FP) PO SCH (10:03)
[2021-01-30] MEDS: CEFTRIAXONE 1 GM in DEXTROSE 5%-WATER - 50 ML IVPB SCH (10:03)
[2021-01-30] MEDS: BUDESONIDE/FORMETEROL FUMARATE 80/4.5 mcg INHALER IH SCH ×2 (10:05→21:10)
[2021-01-30] MEDS ORDERED: WARFARIN NA 2 MG TABLET PO SCH (13:17)
[2021-01-30] MEDS ORDERED: WARFARIN NA 2 MG TABLET ONE (17:05)
[2021-01-30] MEDS ORDERED: WARFARIN NA 2.5 MG TABLET ONE (17:05)
[2021-01-30] MEDS: predniSONE 20 MG TABLET (UD) PO SCH (17:40)
[2021-01-30] MEDS ORDERED: WARFARIN NA 2.5 MG, WARFARIN NA 2 MG PO SCH (18:00)
[2021-01-30] MEDS ORDERED: INSULIN (NOVOLOG) ASPART 100 UNITS/ML 10ML VIAL ONE (21:03)
[2021-01-30] MEDS: MONTELUKAST NA 10 MG TABLET PO SCH (21:10)
[2021-01-30] MEDS: ROSUVASTATIN CA 10 MG TABLET (FP) PO SCH (21:10)
[2021-01-31] MEDS: INSULIN SLIDING SCALE (NOVOLOG) 1 VIAL SQ SCH ×4 (05:59→21:10)
[2021-01-31] MEDS: sitaGLIPtin PHOSPHATE 50 MG TABLET PO SCH (05:59)
[2021-01-31] MEDS ORDERED: SODIUM CHLORIDE 1,000 ML IV STA (06:22)
[2021-01-31 07:23] LABS: HEMATOCRIT 22.1 % (35.4-49); HEMOGLOBIN 7.4 GM/dL (11.7-16.9); MCHC 33.3 g/dl (32.0-35.9); MEAN CELL VOLUME 87.2 fl (80-96); MEAN PLT VOLUME 8.4 fl (7.5-11.1); PLATELET COUNT 252 10^3/uL (134-434); RBC 2.53 M/mm3 (4.00-5.60); RDW 13.9 % (11.9-15.9); WHITE BLOOD COUNT 27.4 K/mm3 (4.0-10.0)
[2021-01-31 07:52] LABS: INR 3.29 (0.83-1.09); PROTHROMBIN TIME (PATIENT) 38.4 SEC (9.7-13.0)
[2021-01-31 07:59] LABS: CHLORIDE 103 mmol/L (98-107); SODIUM 137 mmol/L (136-145)
[2021-01-31] MEDS ORDERED: HUM PROTHROMBIN CPLX(PCC)4FACT 1,000 UNIT/40 ML VIAL IVPB STA ×2 (07:59)
[2021-01-31 08:02] LABS: ANION GAP 8 MMOL/L (8-16); CO2 26 mmol/L (21-32); GLUCOSE,RANDOM 306 mg/dL (74-106)
[2021-01-31 08:05] LABS: CREATININE 1.4 mg/dL (0.55-1.3); SGOT/AST < 3 U/L (15-37); SGPT/ALT 17 U/L (13-61)
[2021-01-31 08:07] LABS: BILIRUBIN,TOTAL 0.6 mg/dL (0.2-1)
[2021-01-31 08:08] LABS: ALK PHOS 33 U/L (45-117)
[2021-01-31] MEDS: PANTOPRAZOLE SODIUM 80 MG in SODIUM CHLORIDE 100 ML IVPB SCH ×2 (08:42→20:24)
[2021-01-31 08:59] LABS: ALBUMIN 2.2 g/dl (3.4-5.0); BLOOD UREA NITROGEN 81.2 mg/dL (7-18)
[2021-01-31] MEDS: TAMSULOSIN HCL 0.4 MG CAP PO SCH (09:06)
[2021-01-31] MEDS: BICALUTAMIDE 50 MG TABLET (FP) PO SCH (09:10)
[2021-01-31] MEDS: FUROSEMIDE 40 MG/4 ML INJECTABLE VIAL IVPUSH SCH ×2 (09:10→09:53)
[2021-01-31] MEDS: predniSONE 20 MG TABLET (UD) PO SCH (09:10)
[2021-01-31] MEDS: rOPINIRole HCL 1 MG TABLET (FP) PO SCH (09:10)
[2021-01-31] MEDS: metoPROLOL SUCCINATE 25 MG TAB.SR.24H (FP) PO SCH (09:11)
[2021-01-31] MEDS ORDERED: cefTRIAXone SODIUM 1 GM VIAL ONE (09:56)
[2021-01-31] MEDS ORDERED: DEXTROSE 5%-WATER - 50 ML IVPB ONE (09:57)
[2021-01-31] MEDS: CEFTRIAXONE 1 GM in DEXTROSE 5%-WATER - 50 ML IVPB SCH (10:13)
[2021-01-31] MEDS: BUDESONIDE/FORMETEROL FUMARATE 80/4.5 mcg INHALER IH SCH ×2 (10:54→21:10)
[2021-01-31 11:27] LABS: ANISOCYTOSIS 2+; MACROCYTOSIS 0; PLATELET ESTIMATE NORMAL
[2021-01-31] MEDS ORDERED: PHYTONADIONE 10 MG/1 ML AMP IVPB ONE (16:11)
[2021-01-31] MEDS: ROSUVASTATIN CA 10 MG TABLET (FP) PO SCH (21:09)
[2021-01-31] MEDS: MONTELUKAST NA 10 MG TABLET PO SCH (21:09)
[2021-01-31 21:22] LABS: HEMATOCRIT 26.7 % (35.4-49); MCH 29.7 pg (25.7-33.7); MCHC 33.6 g/dl (32.0-35.9); MEAN CELL VOLUME 88.4 fl (80-96); MEAN PLT VOLUME 8.4 fl (7.5-11.1); PLATELET COUNT 197 10^3/uL (134-434); RBC 3.01 M/mm3 (4.00-5.60); RDW 13.7 % (11.9-15.9); WHITE BLOOD COUNT 21.3 K/mm3 (4.0-10.0)
[2021-02-01] MEDS: PANTOPRAZOLE SODIUM 80 MG in SODIUM CHLORIDE 100 ML IVPB SCH ×2 (04:07→17:55)
[2021-02-01] MEDS: INSULIN SLIDING SCALE (NOVOLOG) 1 VIAL SQ SCH ×4 (06:44→21:12)
[2021-02-01] MEDS: sitaGLIPtin PHOSPHATE 50 MG TABLET PO SCH (06:44)
[2021-02-01 06:48] LABS: HEMATOCRIT 23.9 % (35.4-49); HEMOGLOBIN 8.3 GM/dL (11.7-16.9); MCH 30.1 pg (25.7-33.7); MCHC 34.5 g/dl (32.0-35.9); MEAN CELL VOLUME 87.1 fl (80-96); MEAN PLT VOLUME 8.1 fl (7.5-11.1); PLATELET COUNT 175 10^3/uL (134-434); RBC 2.75 M/mm3 (4.00-5.60); RDW 13.7 % (11.9-15.9); WHITE BLOOD COUNT 17.6 K/mm3 (4.0-10.0)
[2021-02-01 06:53] LABS: INR 1.31 (0.83-1.09); PROTHROMBIN TIME (PATIENT) 16.1 SEC (9.7-13.0)
[2021-02-01 06:57] LABS: CALCIUM 8.1 mg/dL (8.5-10.1)
[2021-02-01 06:58] LABS: ALBUMIN 2.3 g/dl (3.4-5.0); MAGNESIUM 2.3 mg/dL (1.8-2.4)
[2021-02-01 07:01] LABS: PHOSPHOROUS 2.8 mg/dL (2.5-4.9)
[2021-02-01 07:02] LABS: BILIRUBIN,TOTAL 0.7 mg/dL (0.2-1)
[2021-02-01 07:03] LABS: TOT PROT 4.9 g/dl (6.4-8.2)
[2021-02-01 07:06] LABS: N-TERMINAL BNP 98.8 pg/ml (5-450)
[2021-02-01 07:13] LABS: BLOOD UREA NITROGEN 38.1 mg/dL (7-18)
[2021-02-01] MEDS ORDERED: cefTRIAXone SODIUM 1 GM VIAL ONE (09:45)
[2021-02-01] MEDS ORDERED: DEXTROSE 5%-WATER - 50 ML IVPB ONE (09:45)
[2021-02-01] MEDS: TAMSULOSIN HCL 0.4 MG CAP PO SCH (09:51)
[2021-02-01] MEDS ORDERED: PT OWN MED DRAWER 7, Y5N ONE (10:00)
[2021-02-01] MEDS: predniSONE 20 MG TABLET (UD) PO SCH (10:02)
[2021-02-01] MEDS: BICALUTAMIDE 50 MG TABLET (FP) PO SCH (10:03)
[2021-02-01] MEDS: rOPINIRole HCL 1 MG TABLET (FP) PO SCH (10:03)
[2021-02-01] MEDS: FUROSEMIDE 40 MG/4 ML INJECTABLE VIAL IVPUSH SCH (10:03)
[2021-02-01] MEDS: metoPROLOL SUCCINATE 25 MG TAB.SR.24H (FP) PO SCH (10:05)
[2021-02-01] MEDS: BUDESONIDE/FORMETEROL FUMARATE 80/4.5 mcg INHALER IH SCH ×2 (10:05→21:08)
[2021-02-01] MEDS: CEFTRIAXONE 1 GM in DEXTROSE 5%-WATER - 50 ML IVPB SCH (10:05)
[2021-02-01 10:06] LABS: ANISOCYTOSIS 0; MACROCYTOSIS 0; PLATELET ESTIMATE NORMAL
[2021-02-01 15:32] VITALS: BMI 32.8
[2021-02-01 15:32] LABS: HEMATOCRIT 24.3 % (35.4-49); HEMOGLOBIN 8.3 GM/dL (11.7-16.9); MCH 30.5 pg (25.7-33.7); MCHC 34.2 g/dl (32.0-35.9); MEAN CELL VOLUME 89.2 fl (80-96); MEAN PLT VOLUME 8.9 fl (7.5-11.1); PLATELET COUNT 180 10^3/uL (134-434); RBC 2.73 M/mm3 (4.00-5.60); WHITE BLOOD COUNT 18.3 K/mm3 (4.0-10.0)
[2021-02-01] MEDS: ROSUVASTATIN CA 10 MG TABLET (FP) PO SCH (21:07)
[2021-02-01] MEDS: MONTELUKAST NA 10 MG TABLET PO SCH (21:07)
[2021-02-02] MEDS: PANTOPRAZOLE SODIUM 80 MG in SODIUM CHLORIDE 100 ML IVPB SCH ×4 (01:41→21:29)
[2021-02-02] MEDS: sitaGLIPtin PHOSPHATE 50 MG TABLET PO SCH (07:44)
[2021-02-02] MEDS: INSULIN SLIDING SCALE (NOVOLOG) 1 VIAL SQ SCH ×4 (07:44→22:30)
[2021-02-02 07:50] LABS: BASO % 0.1 % (0-2.0); HEMATOCRIT 24.4 % (35.4-49); HEMOGLOBIN 8.2 GM/dL (11.7-16.9); LYMPH % 18.5 % (8-40); MCH 30.5 pg (25.7-33.7); MCHC 33.7 g/dl (32.0-35.9); MEAN CELL VOLUME 90.6 fl (80-96); MEAN PLT VOLUME 8.4 fl (7.5-11.1); MONO % 7.7 % (3.8-10.2); NEUT % 71.7 % (42.8-82.8); PLATELET COUNT 176 10^3/uL (134-434); RBC 2.69 M/mm3 (4.00-5.60); RDW 14.1 % (11.9-15.9); WHITE BLOOD COUNT 18.3 K/mm3 (4.0-10.0)
[2021-02-02 08:19] LABS: INR 1.11 (0.83-1.09); PROTHROMBIN TIME (PATIENT) 13.7 SEC (9.7-13.0)
[2021-02-02 08:21] LABS: BLOOD UREA NITROGEN 19.2 mg/dL (7-18)
[2021-02-02 08:22] LABS: ALBUMIN 2.5 g/dl (3.4-5.0); CALCIUM 8.6 mg/dL (8.5-10.1)
[2021-02-02 08:23] LABS: MAGNESIUM 2.3 mg/dL (1.8-2.4)
[2021-02-02 08:25] LABS: PHOSPHOROUS 2.5 mg/dL (2.5-4.9)
[2021-02-02 08:26] LABS: BILIRUBIN,TOTAL 0.8 mg/dL (0.2-1); TOT PROT 5.2 g/dl (6.4-8.2)
[2021-02-02] MEDS: TAMSULOSIN HCL 0.4 MG CAP PO SCH ×2 (10:06→14:47)
[2021-02-02] MEDS: predniSONE 20 MG TABLET (UD) PO SCH ×2 (10:07→14:47)
[2021-02-02] MEDS: rOPINIRole HCL 1 MG TABLET (FP) PO SCH (10:07)
[2021-02-02] MEDS: BUDESONIDE/FORMETEROL FUMARATE 80/4.5 mcg INHALER IH SCH ×2 (11:30→22:01)
[2021-02-02] MEDS ORDERED: TETRACAINE/BENZOCAINE/BUTAMBEN 20 GM SPR TP ONE (12:33)
[2021-02-02] MEDS: FUROSEMIDE 40 MG/4 ML INJECTABLE VIAL IVPUSH SCH (16:49)
[2021-02-02] MEDS ORDERED: PEG 3350/NA SULF BICARB CL/KCL 4000 ML SOLN.RECON PO ONE (18:09)
[2021-02-02 21:50] LABS: EPI CELLS 1 /uL (0-25.1); HYALINE CASTS 1 /uL (0-3.1); URINE APPEARANCE CLEAR; URINE BACTERIA 480 /uL (0-1359); URINE BILIRUBIN NEGATIVE (NEGATIVE); URINE COLOR YELLOW; URINE GLUCOSE (UA) 2+ (NEGATIVE); URINE KETONE NEGATIVE (NEGATIVE); URINE LEUK ESTERASE 1+ (NEGATIVE); URINE NITRITE NEGATIVE (NEGATIVE); URINE PROTEIN NEGATIVE (NEGATIVE); URINE RBC 9 /uL (0-23.9); URINE WBC 127 /uL (0-25.8)
[2021-02-02] MEDS ORDERED: BISACODYL 5 MG TABLET.DR (FP) PO ONE (22:00)
[2021-02-02] MEDS: ROSUVASTATIN CA 10 MG TABLET (FP) PO SCH (22:01)
[2021-02-02] MEDS: MONTELUKAST NA 10 MG TABLET PO SCH (22:01)
[2021-02-03] MEDS: INSULIN SLIDING SCALE (NOVOLOG) 1 VIAL SQ SCH ×4 (06:04→23:04)
[2021-02-03] MEDS: sitaGLIPtin PHOSPHATE 50 MG TABLET PO SCH (06:04)
[2021-02-03] MEDS: PANTOPRAZOLE SODIUM 80 MG in SODIUM CHLORIDE 100 ML IVPB SCH (06:05)
[2021-02-03 06:21] LABS: BASO % 0.1 % (0-2.0); EOS % 0.5 % (0-4.5); HEMATOCRIT 24.1 % (35.4-49); HEMOGLOBIN 8.4 GM/dL (11.7-16.9); LYMPH % 12.3 % (8-40); MCHC 34.7 g/dl (32.0-35.9); MEAN CELL VOLUME 89.4 fl (80-96); MEAN PLT VOLUME 8.7 fl (7.5-11.1); MONO % 6.9 % (3.8-10.2); NEUT % 80.2 % (42.8-82.8); PLATELET COUNT 192 10^3/uL (134-434); RBC 2.69 M/mm3 (4.00-5.60); RDW 14.2 % (11.9-15.9); WHITE BLOOD COUNT 16.5 K/mm3 (4.0-10.0)
[2021-02-03 06:36] LABS: ALBUMIN 2.7 g/dl (3.4-5.0); CALCIUM 8.5 mg/dL (8.5-10.1)
[2021-02-03 06:37] LABS: BLOOD UREA NITROGEN 12.9 mg/dL (7-18)
[2021-02-03 06:40] LABS: CREATININE 0.9 mg/dL (0.55-1.3); PHOSPHOROUS 2.4 mg/dL (2.5-4.9)
[2021-02-03 06:41] LABS: BILIRUBIN,TOTAL 0.6 mg/dL (0.2-1); TOT PROT 5.6 g/dl (6.4-8.2)
[2021-02-03] MEDS ORDERED: PT OWN MED DRAWER 7, Y5N ONE ×2 (12:37→13:20)
[2021-02-03] MEDS: NAPH,MB-DB/K PH,MBDB POWDER PACKET PO SCH ×2 (12:46→23:05)
[2021-02-03] MEDS: predniSONE 20 MG TABLET (UD) PO SCH (12:46)
[2021-02-03] MEDS: rOPINIRole HCL 1 MG TABLET (FP) PO SCH (12:47)
[2021-02-03] MEDS: FUROSEMIDE 40 MG/4 ML INJECTABLE VIAL IVPUSH SCH (12:47)
[2021-02-03] MEDS: BUDESONIDE/FORMETEROL FUMARATE 80/4.5 mcg INHALER IH SCH ×2 (12:48→23:05)
[2021-02-03] MEDS: TAMSULOSIN HCL 0.4 MG CAP PO SCH (12:48)
[2021-02-03] MEDS: ROSUVASTATIN CA 10 MG TABLET (FP) PO SCH (23:04)
[2021-02-03] MEDS: MONTELUKAST NA 10 MG TABLET PO SCH (23:05)
[2021-02-04 06:40] LABS: BASO % 0.1 % (0-2.0); EOS % 0.3 % (0-4.5); HEMATOCRIT 23.5 % (35.4-49); HEMOGLOBIN 7.9 GM/dL (11.7-16.9); LYMPH % 12.1 % (8-40); MCH 30.5 pg (25.7-33.7); MCHC 33.4 g/dl (32.0-35.9); MEAN CELL VOLUME 91.2 fl (80-96); MEAN PLT VOLUME 8.7 fl (7.5-11.1); MONO % 6.4 % (3.8-10.2); NEUT % 81.1 % (42.8-82.8); PLATELET COUNT 195 10^3/uL (134-434); RBC 2.58 M/mm3 (4.00-5.60); RDW 14.4 % (11.9-15.9); WHITE BLOOD COUNT 13.8 K/mm3 (4.0-10.0)
[2021-02-04] MEDS: INSULIN SLIDING SCALE (NOVOLOG) 1 VIAL SQ SCH ×3 (06:49→22:32)
[2021-02-04] MEDS: sitaGLIPtin PHOSPHATE 50 MG TABLET PO SCH (06:51)
[2021-02-04 06:58] LABS: ALBUMIN 2.5 g/dl (3.4-5.0); BLOOD UREA NITROGEN 9.9 mg/dL (7-18); CALCIUM 8.3 mg/dL (8.5-10.1); MAGNESIUM 2.2 mg/dL (1.8-2.4)
[2021-02-04 07:01] LABS: CREATININE 0.8 mg/dL (0.55-1.3)
[2021-02-04 07:02] LABS: BILIRUBIN,TOTAL 0.7 mg/dL (0.2-1); PHOSPHOROUS 3.1 mg/dL (2.5-4.9)
[2021-02-04 07:03] LABS: TOT PROT 5.4 g/dl (6.4-8.2)
[2021-02-04] MEDS: TAMSULOSIN HCL 0.4 MG CAP PO SCH (09:55)
[2021-02-04] MEDS: metoPROLOL SUCCINATE 25 MG TAB.SR.24H (FP) PO SCH (09:55)
[2021-02-04] MEDS: rOPINIRole HCL 1 MG TABLET (FP) PO SCH (09:55)
[2021-02-04] MEDS: BICALUTAMIDE 50 MG TABLET (FP) PO SCH (09:55)
[2021-02-04] MEDS: BUDESONIDE/FORMETEROL FUMARATE 80/4.5 mcg INHALER IH SCH ×2 (09:55→22:32)
[2021-02-04] MEDS: FUROSEMIDE 40 MG/4 ML INJECTABLE VIAL IVPUSH SCH (09:55)
[2021-02-04] MEDS: predniSONE 20 MG TABLET (UD) PO SCH (09:55)
[2021-02-04] MEDS ORDERED: FLUCONAZOLE 100 MG TABLET (UD) PO SCH (11:15)
[2021-02-04] MEDS: HEPARIN NA (PORCINE) 5,000 UNITS/ML 1ML VIAL SQ SCH ×2 (16:00→22:31)
[2021-02-04] MEDS ORDERED: PT OWN MED DRAWER 7, Y5N ONE (16:46)
[2021-02-04] MEDS: ROSUVASTATIN CA 10 MG TABLET (FP) PO SCH (22:31)
[2021-02-04] MEDS: MONTELUKAST NA 10 MG TABLET PO SCH (22:31)
[2021-02-05] MEDS: HEPARIN NA (PORCINE) 5,000 UNITS/ML 1ML VIAL SQ SCH ×3 (06:47→21:25)
[2021-02-05] MEDS: sitaGLIPtin PHOSPHATE 50 MG TABLET PO SCH (06:47)
[2021-02-05] MEDS: INSULIN SLIDING SCALE (NOVOLOG) 1 VIAL SQ SCH ×4 (06:47→21:25)
[2021-02-05] MEDS ORDERED: PT OWN MED DRAWER 7, Y5N ONE (08:41)
[2021-02-05] MEDS: TAMSULOSIN HCL 0.4 MG CAP PO SCH (08:46)
[2021-02-05] MEDS: BICALUTAMIDE 50 MG TABLET (FP) PO SCH (09:04)
[2021-02-05] MEDS: FLUCONAZOLE 100 MG TABLET (UD) PO SCH (09:05)
[2021-02-05] MEDS: predniSONE 20 MG TABLET (UD) PO SCH (09:05)
[2021-02-05] MEDS: rOPINIRole HCL 1 MG TABLET (FP) PO SCH (09:06)
[2021-02-05] MEDS: metoPROLOL SUCCINATE 25 MG TAB.SR.24H (FP) PO SCH (09:06)
[2021-02-05] MEDS: BUDESONIDE/FORMETEROL FUMARATE 80/4.5 mcg INHALER IH SCH ×2 (09:06→21:26)
[2021-02-05] MEDS ORDERED: FUROSEMIDE 40 MG/4 ML INJECTABLE VIAL IVPUSH SCH (10:00)
[2021-02-05 16:56] LABS: HEMATOCRIT 26.7 % (35.4-49); HEMOGLOBIN 8.6 GM/dL (11.7-16.9); MCH 29.1 pg (25.7-33.7); MEAN CELL VOLUME 90.8 fl (80-96); MEAN PLT VOLUME 9.3 fl (7.5-11.1); PLATELET COUNT 224 10^3/uL (134-434); RBC 2.94 M/mm3 (4.00-5.60); RDW 15.2 % (11.9-15.9); WHITE BLOOD COUNT 18.9 K/mm3 (4.0-10.0)
[2021-02-05] MEDS: ROSUVASTATIN CA 10 MG TABLET (FP) PO SCH (21:25)
[2021-02-05] MEDS: MONTELUKAST NA 10 MG TABLET PO SCH (21:25)
[2021-02-06] MEDS: INSULIN SLIDING SCALE (NOVOLOG) 1 VIAL SQ SCH ×4 (06:18→21:08)
[2021-02-06] MEDS: sitaGLIPtin PHOSPHATE 50 MG TABLET PO SCH (06:19)
[2021-02-06] MEDS: HEPARIN NA (PORCINE) 5,000 UNITS/ML 1ML VIAL SQ SCH ×3 (06:19→21:08)
[2021-02-06 08:43] LABS: HEMOGLOBIN 8.3 GM/dL (11.7-16.9); MCH 30.3 pg (25.7-33.7); MCHC 33.3 g/dl (32.0-35.9); MEAN CELL VOLUME 91.2 fl (80-96); MEAN PLT VOLUME 8.2 fl (7.5-11.1); PLATELET COUNT 230 10^3/uL (134-434); RBC 2.74 M/mm3 (4.00-5.60); WHITE BLOOD COUNT 15.6 K/mm3 (4.0-10.0)
[2021-02-06 08:55] LABS: CALCIUM 8.9 mg/dL (8.5-10.1)
[2021-02-06 08:56] LABS: BLOOD UREA NITROGEN 14.4 mg/dL (7-18)
[2021-02-06 08:59] LABS: CREATININE 0.8 mg/dL (0.55-1.3)
[2021-02-06] MEDS ORDERED: PT OWN MED DRAWER 7, Y5N ONE (09:35)
[2021-02-06] MEDS: predniSONE 20 MG TABLET (UD) PO SCH (09:44)
[2021-02-06] MEDS: rOPINIRole HCL 1 MG TABLET (FP) PO SCH (09:44)
[2021-02-06] MEDS: FLUCONAZOLE 100 MG TABLET (UD) PO SCH (09:44)
[2021-02-06] MEDS: TAMSULOSIN HCL 0.4 MG CAP PO SCH (09:44)
[2021-02-06] MEDS: BICALUTAMIDE 50 MG TABLET (FP) PO SCH (09:44)
[2021-02-06] MEDS: FUROSEMIDE 40 MG TABLET (FP) PO SCH (09:45)
[2021-02-06] MEDS: metoPROLOL SUCCINATE 25 MG TAB.SR.24H (FP) PO SCH (09:47)
[2021-02-06] MEDS: BUDESONIDE/FORMETEROL FUMARATE 80/4.5 mcg INHALER IH SCH ×2 (09:49→21:08)
[2021-02-06] MEDS ORDERED: MAGNESIUM HYDROX 2400MG/30ML ORAL SUSPENSION 30 ML CUP PO ONE (12:00)
[2021-02-06] MEDS ORDERED: GLYCERIN 1 RECTAL SUPPOSITORY, ADULT RC ONE (12:00)
[2021-02-06] MEDS ORDERED: WARFARIN NA 5 MG TABLET PO SCH (18:00)
[2021-02-06] MEDS: ROSUVASTATIN CA 10 MG TABLET (FP) PO SCH (21:08)
[2021-02-06] MEDS: MONTELUKAST NA 10 MG TABLET PO SCH (21:10)
[2021-02-07] MEDS: INSULIN SLIDING SCALE (NOVOLOG) 1 VIAL SQ SCH ×5 (06:30→21:22)
[2021-02-07] MEDS: sitaGLIPtin PHOSPHATE 50 MG TABLET PO SCH (06:30)
[2021-02-07] MEDS: HEPARIN NA (PORCINE) 5,000 UNITS/ML 1ML VIAL SQ SCH ×3 (06:30→21:15)
[2021-02-07 09:35] LABS: INR 1.06 (0.83-1.09)
[2021-02-07 09:36] LABS: HEMATOCRIT 24.5 % (35.4-49); HEMOGLOBIN 8.1 GM/dL (11.7-16.9); MCH 29.9 pg (25.7-33.7); MCHC 32.9 g/dl (32.0-35.9); MEAN CELL VOLUME 90.8 fl (80-96); MEAN PLT VOLUME 8.8 fl (7.5-11.1); PLATELET COUNT 234 10^3/uL (134-434); RDW 15.2 % (11.9-15.9); WHITE BLOOD COUNT 15.7 K/mm3 (4.0-10.0)
[2021-02-07] MEDS ORDERED: PT OWN MED DRAWER 7, Y5N ONE (10:44)
[2021-02-07] MEDS: FLUCONAZOLE 100 MG TABLET (UD) PO SCH (10:56)
[2021-02-07] MEDS: rOPINIRole HCL 1 MG TABLET (FP) PO SCH (10:56)
[2021-02-07] MEDS: TAMSULOSIN HCL 0.4 MG CAP PO SCH (10:56)
[2021-02-07] MEDS: metoPROLOL SUCCINATE 25 MG TAB.SR.24H (FP) PO SCH (10:56)
[2021-02-07] MEDS: FUROSEMIDE 40 MG TABLET (FP) PO SCH (10:56)
[2021-02-07] MEDS: predniSONE 20 MG TABLET (UD) PO SCH (10:56)
[2021-02-07] MEDS: BUDESONIDE/FORMETEROL FUMARATE 80/4.5 mcg INHALER IH SCH ×2 (10:57→21:15)
[2021-02-07] MEDS: BICALUTAMIDE 50 MG TABLET (FP) PO SCH (10:57)
[2021-02-07] MEDS: WARFARIN NA 5 MG TABLET PO SCH (18:07)
[2021-02-07] MEDS: MONTELUKAST NA 10 MG TABLET PO SCH (21:15)
[2021-02-07] MEDS: ROSUVASTATIN CA 10 MG TABLET (FP) PO SCH (21:15)
[2021-02-08] MEDS: INSULIN SLIDING SCALE (NOVOLOG) 1 VIAL SQ SCH ×4 (06:32→21:16)
[2021-02-08] MEDS: HEPARIN NA (PORCINE) 5,000 UNITS/ML 1ML VIAL SQ SCH ×3 (06:32→21:16)
[2021-02-08] MEDS: sitaGLIPtin PHOSPHATE 50 MG TABLET PO SCH (06:33)
[2021-02-08 08:58] LABS: HEMATOCRIT 24.6 % (35.4-49); HEMOGLOBIN 8.1 GM/dL (11.7-16.9); MEAN PLT VOLUME 8.3 fl (7.5-11.1); PLATELET COUNT 236 10^3/uL (134-434); RBC 2.71 M/mm3 (4.00-5.60); RDW 14.8 % (11.9-15.9); WHITE BLOOD COUNT 14.2 K/mm3 (4.0-10.0)
[2021-02-08 09:03] LABS: INR 1.1 (0.83-1.09); PROTHROMBIN TIME (PATIENT) 13.6 SEC (9.7-13.0)
[2021-02-08 09:29] LABS: CALCIUM 9.2 mg/dL (8.5-10.1)
[2021-02-08 09:30] LABS: BLOOD UREA NITROGEN 14.5 mg/dL (7-18)
[2021-02-08 09:33] LABS: CREATININE 0.9 mg/dL (0.55-1.3)
[2021-02-08] MEDS ORDERED: PT OWN MED DRAWER 7, Y5N ONE (09:58)
[2021-02-08] MEDS: metoPROLOL SUCCINATE 25 MG TAB.SR.24H (FP) PO SCH (10:10)
[2021-02-08] MEDS: predniSONE 10 MG TABLET (UD) PO SCH (10:10)
[2021-02-08] MEDS: PANTOPRAZOLE 40 MG TABLET PO SCH (10:10)
[2021-02-08] MEDS: FLUCONAZOLE 100 MG TABLET (UD) PO SCH (10:10)
[2021-02-08] MEDS: TAMSULOSIN HCL 0.4 MG CAP PO SCH (10:10)
[2021-02-08] MEDS: BICALUTAMIDE 50 MG TABLET (FP) PO SCH (10:10)
[2021-02-08] MEDS: FUROSEMIDE 40 MG TABLET (FP) PO SCH (10:10)
[2021-02-08] MEDS: rOPINIRole HCL 1 MG TABLET (FP) PO SCH (10:11)
[2021-02-08] MEDS: BUDESONIDE/FORMETEROL FUMARATE 80/4.5 mcg INHALER IH SCH ×2 (10:12→21:17)
[2021-02-08] MEDS: predniSONE 20 MG TABLET (UD) PO SCH (10:38)
[2021-02-08] MEDS ORDERED: IRON SUCROSE INJECTION 300 MG in SODIUM CHLORIDE 235 ML IVPB ONE (11:30)
[2021-02-08] MEDS: FERROUS GLUCONATE 324 MG TAB (FP) PO SCH (12:29)
[2021-02-08] MEDS: WARFARIN NA 5 MG TABLET PO SCH (17:25)
[2021-02-08] MEDS: MONTELUKAST NA 10 MG TABLET PO SCH (21:16)
[2021-02-08] MEDS: ROSUVASTATIN CA 10 MG TABLET (FP) PO SCH (21:17)
[2021-02-09] MEDS: HEPARIN NA (PORCINE) 5,000 UNITS/ML 1ML VIAL SQ SCH ×2 (05:55→13:45)
[2021-02-09] MEDS: INSULIN SLIDING SCALE (NOVOLOG) 1 VIAL SQ SCH ×4 (06:02→21:14)
[2021-02-09] MEDS: sitaGLIPtin PHOSPHATE 50 MG TABLET PO SCH (06:24)
[2021-02-09] MEDS: TAMSULOSIN HCL 0.4 MG CAP PO SCH (07:54)
[2021-02-09] MEDS ORDERED: PT OWN MED DRAWER 7, Y5N ONE (08:56)
[2021-02-09] MEDS ORDERED: INSULIN SLIDING SCALE (NOVOLOG) 1 VIAL SQ ONE (08:56)
[2021-02-09] MEDS: FLUCONAZOLE 100 MG TABLET (UD) PO SCH (09:22)
[2021-02-09] MEDS: rOPINIRole HCL 1 MG TABLET (FP) PO SCH (09:22)
[2021-02-09] MEDS: metoPROLOL SUCCINATE 25 MG TAB.SR.24H (FP) PO SCH (09:22)
[2021-02-09] MEDS: predniSONE 10 MG TABLET (UD) PO SCH (09:22)
[2021-02-09] MEDS: PANTOPRAZOLE 40 MG TABLET PO SCH (09:22)
[2021-02-09] MEDS: BICALUTAMIDE 50 MG TABLET (FP) PO SCH (09:22)
[2021-02-09] MEDS: FERROUS GLUCONATE 324 MG TAB (FP) PO SCH (09:23)
[2021-02-09] MEDS: FUROSEMIDE 40 MG TABLET (FP) PO SCH (09:23)
[2021-02-09] MEDS: BUDESONIDE/FORMETEROL FUMARATE 80/4.5 mcg INHALER IH SCH ×2 (09:23→21:15)
[2021-02-09 10:25] LABS: HEMATOCRIT 28.5 % (35.4-49); HEMOGLOBIN 9.3 GM/dL (11.7-16.9); MCH 29.4 pg (25.7-33.7); MCHC 32.7 g/dl (32.0-35.9); MEAN CELL VOLUME 89.8 fl (80-96); MEAN PLT VOLUME 8.2 fl (7.5-11.1); PLATELET COUNT 229 10^3/uL (134-434); RBC 3.17 M/mm3 (4.00-5.60); RDW 15.3 % (11.9-15.9); WHITE BLOOD COUNT 15.9 K/mm3 (4.0-10.0)
[2021-02-09 11:20] LABS: CALCIUM 9.8 mg/dL (8.5-10.1)
[2021-02-09 11:21] LABS: BLOOD UREA NITROGEN 16.2 mg/dL (7-18)
[2021-02-09 11:25] LABS: CREATININE 1.2 mg/dL (0.55-1.3)
[2021-02-09 13:40] LABS: INR 1.8 (0.83-1.09); PROTHROMBIN TIME (PATIENT) 21.9 SEC (9.7-13.0)
[2021-02-09] MEDS: WARFARIN NA 5 MG TABLET PO SCH (17:43)
[2021-02-09] MEDS ORDERED: POLYETHYLENE GLYCOL (HEALTHYLAX) 3350 17 GM PACKET PO ONE (17:59)
[2021-02-09] MEDS: ROSUVASTATIN CA 10 MG TABLET (FP) PO SCH (21:14)
[2021-02-09] MEDS: MONTELUKAST NA 10 MG TABLET PO SCH (21:14)
[2021-02-10] MEDS: INSULIN SLIDING SCALE (NOVOLOG) 1 VIAL SQ SCH ×3 (06:06→15:31)
[2021-02-10] MEDS: sitaGLIPtin PHOSPHATE 50 MG TABLET PO SCH (06:06)
[2021-02-10] MEDS: TAMSULOSIN HCL 0.4 MG CAP PO SCH (08:09)
[2021-02-10] MEDS ORDERED: PT OWN MED DRAWER 7, Y5N ONE (09:04)
[2021-02-10] MEDS: rOPINIRole HCL 1 MG TABLET (FP) PO SCH (09:09)
[2021-02-10] MEDS: BICALUTAMIDE 50 MG TABLET (FP) PO SCH (09:09)
[2021-02-10] MEDS: PANTOPRAZOLE 40 MG TABLET PO SCH (09:09)
[2021-02-10] MEDS: FUROSEMIDE 40 MG TABLET (FP) PO SCH (09:09)
[2021-02-10] MEDS: metoPROLOL SUCCINATE 25 MG TAB.SR.24H (FP) PO SCH (09:09)
[2021-02-10] MEDS: FERROUS GLUCONATE 324 MG TAB (FP) PO SCH (09:09)
[2021-02-10] MEDS: predniSONE 10 MG TABLET (UD) PO SCH (09:09)
[2021-02-10] MEDS: FLUCONAZOLE 100 MG TABLET (UD) PO SCH (09:09)
[2021-02-10] MEDS: BUDESONIDE/FORMETEROL FUMARATE 80/4.5 mcg INHALER IH SCH (09:10)
[2021-02-10 10:02] LABS: BASO % 0.4 % (0-2.0); EOS % 2.2 % (0-4.5); HEMATOCRIT 29.3 % (35.4-49); HEMOGLOBIN 9.4 GM/dL (11.7-16.9); LYMPH % 20.9 % (8-40); MCHC 32.1 g/dl (32.0-35.9); MEAN CELL VOLUME 90.2 fl (80-96); MEAN PLT VOLUME 8.7 fl (7.5-11.1); MONO % 6.6 % (3.8-10.2); NEUT % 69.9 % (42.8-82.8); PLATELET COUNT 268 10^3/uL (134-434); RBC 3.25 M/mm3 (4.00-5.60); RDW 15.6 % (11.9-15.9); WHITE BLOOD COUNT 15.7 K/mm3 (4.0-10.0)
[2021-02-10 11:51] LABS: INR 2.68 (0.83-1.09); PROTHROMBIN TIME (PATIENT) 33.3 SEC (9.7-13.0)
[2021-02-10 14:13] VITALS: BP 130/64; PULSE 67; TEMP 98.3
[2021-02-10] MEDS ORDERED: WARFARIN NA 5 MG TABLET PO SCH (18:00)
== END 2021-02-10 17:27 | disposition home health service (06) | DRG 190 ==
LOC: JER 12:16 → JERBED 17:35 → J7W 23:08 → JICU 01-31 08:23 → J6S 02-05 10:13 → J5S 02-05 17:31
PROVIDERS: ADMIT Internal Medicine; ATTEND Family Medicine
PROC: 30233N1 Transfusion of Nonautologous Red Blood Cells into Peripheral Vein, Percutaneous Approach (ICD-10-PCS; 2021-01-31)
PROC: 0DB58ZX Excision of Esophagus, Via Natural or Artificial Opening Endoscopic, Diagnostic (ICD-10-PCS; 2021-02-02)
PROC: 0DJ08ZZ Inspection of Upper Intestinal Tract, Via Natural or Artificial Opening Endoscopic (ICD-10-PCS; 2021-02-02)
PROC: 0DBM8ZX Excision of Descending Colon, Via Natural or Artificial Opening Endoscopic, Diagnostic (ICD-10-PCS; 2021-02-03)
PROC: 0DJD8ZZ Inspection of Lower Intestinal Tract, Via Natural or Artificial Opening Endoscopic (ICD-10-PCS; 2021-02-03)
PROC: 0DBH8ZX Excision of Cecum, Via Natural or Artificial Opening Endoscopic, Diagnostic (ICD-10-PCS; principal; 2021-02-03 13:45)
DX: J44.1 Chronic obstructive pulmonary disease with (acute) exacerbation (principal); I50.33 Acute on chronic diastolic (congestive) heart failure; K57.31 Diverticulosis of large intestine without perforation or abscess with bleeding; K92.2 Gastrointestinal hemorrhage, unspecified; D62 Acute posthemorrhagic anemia; B37.81 Candidal esophagitis; J96.11 Chronic respiratory failure with hypoxia; N17.9 Acute kidney failure, unspecified; I11.0 Hypertensive heart disease with heart failure; E11.9 Type 2 diabetes mellitus without complications; E78.5 Hyperlipidemia, unspecified; I48.91 Unspecified atrial fibrillation; R79.1 Abnormal coagulation profile; E87.6 Hypokalemia; K59.09 Other constipation; N40.0 Benign prostatic hyperplasia without lower urinary tract symptoms; M25.519 Pain in unspecified shoulder; E87.70 Fluid overload, unspecified; K59.00 Constipation, unspecified; R26.9 Unspecified abnormalities of gait and mobility; K21.00 Gastro-esophageal reflux disease with esophagitis, without bleeding; M19.012 Primary osteoarthritis, left shoulder; K64.8 Other hemorrhoids; F03.90 Unspecified dementia, unspecified severity, without behavioral disturbance, psychotic disturbance, mood disturbance, and anxiety; K21.9 Gastro-esophageal reflux disease without esophagitis; K42.9 Umbilical hernia without obstruction or gangrene; D12.0 Benign neoplasm of cecum; D12.4 Benign neoplasm of descending colon; Z85.46 Personal history of malignant neoplasm of prostate
CPT/HCPCS: 36415; 36430; 71045-TC-FY; 71250-TC; 73030-TC-LT-FY; 80048; 80053; 81003; 82271; 82550; 82553; 82728; 82803; 82962; 83036; 83540; 83550; 83735; 83880; 84100; 84484; 85025; 85027; 85610; 86850; 86900; 86901; 86922; 87040; 87077; 87081; 87086; 87186; 88104; 88305-TC; 93005; 93010; 94640; 97116-GP; 97161-GP; 99285-25; C9803; J1644; J1756; J7168; P9058; U0003; U0005

== ENCOUNTER 2021-04-30 23:56 | Emergency (ER) | payer OTHER ==
[2021-05-01 00:03] VITALS: BP 152/69; PULSE 60; TEMP 97.1; BMI 27.6
[2021-05-01] MEDS ORDERED: ALBUTEROL SO4 2.5/IPRATROPIUM 0.5 INH SOL 3 ML VIAL.NEB. NEB ONE (00:09)
[2021-05-01] MEDS ORDERED: predniSONE 20 MG TABLET (UD) PO ONE (01:09)
[2021-05-01] MEDS ORDERED: predniSONE 20 MG TABLET (UD) ONE (01:26)
== END 2021-05-01 03:02 | disposition home or self-care (01) ==
LOC: JER 23:56
DX: J45.21 Mild intermittent asthma with (acute) exacerbation (principal)
CPT/HCPCS: 99283-25

== ENCOUNTER 2021-06-25 10:07 | Emergency (ER) | payer OTHER ==
[2021-06-25 10:43] VITALS: TEMP 98.2; BMI 33.2
[2021-06-25 12:20] LABS: BASO % 1.6 % (0-2.0); EOS % 5.5 % (0-4.5); HEMATOCRIT 33.2 % (35.4-49); HEMOGLOBIN 10.4 GM/dL (11.7-16.9); LYMPH % 21.1 % (8-40); MCH 23.9 pg (25.7-33.7); MCHC 31.2 g/dl (32.0-35.9); MEAN CELL VOLUME 76.4 fl (80-96); MEAN PLT VOLUME 8.7 fl (7.5-11.1); MONO % 7.6 % (3.8-10.2); NEUT % 64.2 % (42.8-82.8); PLATELET COUNT 294 10^3/uL (134-434); RBC 4.34 M/mm3 (4.00-5.60); WHITE BLOOD COUNT 12.3 K/mm3 (4.0-10.0)
[2021-06-25 12:36] LABS: ACTIVATED PTT 35.4 SECONDS (25.2-36.5); INR 2.19 (0.83-1.09); PROTHROMBIN TIME (PATIENT) 25.4 SEC (9.7-13.0)
[2021-06-25 12:43] LABS: ALBUMIN 3.5 g/dl (3.4-5.0); CALCIUM 10.2 mg/dL (8.5-10.1)
[2021-06-25 12:44] LABS: BLOOD UREA NITROGEN 14.9 mg/dL (7-18); MAGNESIUM 1.8 mg/dL (1.8-2.4)
[2021-06-25 12:48] LABS: BILIRUBIN,TOTAL 0.5 mg/dL (0.2-1); CREATININE 1.1 mg/dL (0.55-1.3); TOT PROT 7.2 g/dl (6.4-8.2)
[2021-06-25 14:52] VITALS: BP 140/78; PULSE 89
[2021-06-26 06:07] LABS: SARS-CoV-2 NAA Not Detected (Not Detected)
== END 2021-06-25 14:52 | disposition home or self-care (01) ==
LOC: JER 10:07
DX: R19.7 Diarrhea, unspecified (principal)
CPT/HCPCS: 36415; 80053; 82962; 83735; 85025; 85610; 85730; 93005; 93010; 99284-25; C9803; U0003; U0005

== ENCOUNTER 2021-08-03 18:30 | Observation (INO) | payer OTHER ==
[2021-08-03 21:55] LABS: EOS % 2.8 % (0-4.5); HEMATOCRIT 35.9 % (35.4-49); HEMOGLOBIN 11.7 GM/dL (11.7-16.9); LYMPH % 21.9 % (8-40); MCH 25.4 pg (25.7-33.7); MCHC 32.6 g/dl (32.0-35.9); MEAN CELL VOLUME 77.9 fl (80-96); MEAN PLT VOLUME 8.5 fl (7.5-11.1); MONO % 7.6 % (3.8-10.2); PLATELET COUNT 293 10^3/uL (134-434); RDW 20.2 % (11.9-15.9); WHITE BLOOD COUNT 10.9 K/mm3 (4.0-10.0)
[2021-08-03 21:56] LABS: BASO % 0.7 % (0-2.0)
[2021-08-03 22:08] LABS: ACTIVATED PTT 37.1 SECONDS (25.2-36.5); INR 2.29 (0.83-1.09); PROTHROMBIN TIME (PATIENT) 26.5 SEC (9.7-13.0)
[2021-08-03] MEDS ORDERED: WARFARIN NA 5 MG TABLET PO ONE (22:20)
[2021-08-03 22:28] LABS: ALBUMIN 3.4 g/dl (3.4-5.0); BLOOD UREA NITROGEN 19.3 mg/dL (7-18); CALCIUM 9.4 mg/dL (8.5-10.1)
[2021-08-03] MEDS ORDERED: WARFARIN NA 5 MG TABLET ONE (22:29)
[2021-08-03 22:32] LABS: CREATININE 1.3 mg/dL (0.55-1.3)
[2021-08-03 22:33] LABS: TOT PROT 7.5 g/dl (6.4-8.2)
[2021-08-03 22:35] LABS: BILIRUBIN,TOTAL 0.4 mg/dL (0.2-1)
[2021-08-03 22:36] LABS: N-TERMINAL BNP 78.5 pg/ml (5-450)
[2021-08-03] MEDS ORDERED: methylPREDNISolone NA SUCC 125 MG/2 ML VIAL IVPUSH ONE (23:32)
[2021-08-03] MEDS ORDERED: methylPREDNISolone NA SUCC 125 MG/2 ML VIAL ONE (23:39)
[2021-08-04] MEDS ORDERED: POLYETHYLENE GLYCOL (HEALTHYLAX) 3350 17 GM PACKET PO PRN (01:02)
[2021-08-04] MEDS ORDERED: ACETAMINOPHEN 325 MG TABLET (FP) PO PRN (01:02)
[2021-08-04] MEDS ORDERED: ALBUTEROL SO4 HFA INHALER IH PRN (01:08)
[2021-08-04] MEDS ORDERED: ALBUTEROL SO4 2.5/IPRATROPIUM 0.5 INH SOL 3 ML VIAL.NEB. NEB ONE (01:55)
[2021-08-04] MEDS: ALBUTEROL SO4 2.5/IPRATROPIUM 0.5 INH SOL 3 ML VIAL.NEB. NEB SCH ×3 (01:59→02:52)
[2021-08-04] MEDS: BUDESONIDE/FORMETEROL FUMARATE 80/4.5 mcg INHALER IH SCH ×3 (02:55→22:59)
[2021-08-04] MEDS: rOPINIRole HCL 1 MG TABLET (FP) PO SCH ×3 (03:03→22:59)
[2021-08-04 04:46] VITALS: BMI 33.0
[2021-08-04 10:09] LABS: HEMATOCRIT 34.5 % (35.4-49); HEMOGLOBIN 11.1 GM/dL (11.7-16.9); MCH 25.1 pg (25.7-33.7); MCHC 32.1 g/dl (32.0-35.9); MEAN CELL VOLUME 78.2 fl (80-96); MEAN PLT VOLUME 8.7 fl (7.5-11.1); PLATELET COUNT 285 10^3/uL (134-434); RBC 4.41 M/mm3 (4.00-5.60); RDW 19.7 % (11.9-15.9); WHITE BLOOD COUNT 11.5 K/mm3 (4.0-10.0)
[2021-08-04 10:31] LABS: CALCIUM 9.8 mg/dL (8.5-10.1)
[2021-08-04 10:32] LABS: BLOOD UREA NITROGEN 22.6 mg/dL (7-18); MAGNESIUM 1.7 mg/dL (1.8-2.4)
[2021-08-04 10:35] LABS: CREATININE 1.2 mg/dL (0.55-1.3); URIC ACID 5.4 mg/dL (2.6-7.2)
[2021-08-04] MEDS: methylPREDNISolone NA SUCC 40 MG/1 ML VIAL IVPUSH SCH ×3 (10:54→16:59)
[2021-08-04] MEDS: metoPROLOL SUCCINATE 25 MG TAB.SR.24H (FP) PO SCH (10:56)
[2021-08-04] MEDS: PANTOPRAZOLE 40 MG TABLET PO SCH (10:57)
[2021-08-04] MEDS: FUROSEMIDE 40 MG TABLET (FP) PO SCH (10:57)
[2021-08-04] MEDS: TAMSULOSIN HCL 0.4 MG CAP PO SCH (10:57)
[2021-08-04] MEDS: FERROUS GLUCONATE 324 MG TAB (FP) PO SCH (10:57)
[2021-08-04] MEDS: DONEPEZIL HCL 10 MG TABLET (FP) PO SCH (10:57)
[2021-08-04 11:34] LABS: ANISOCYTOSIS 0; MACROCYTOSIS 0
[2021-08-04] MEDS ORDERED: MAGNESIUM OXIDE 400 MG TABLET (FP) PO ONE (15:01)
[2021-08-04] MEDS: BICALUTAMIDE 50 MG TABLET (FP) PO SCH (16:55)
[2021-08-04] MEDS: WARFARIN NA 5 MG TABLET PO SCH (16:59)
[2021-08-04] MEDS: ROSUVASTATIN CA 10 MG TABLET PO SCH (22:59)
[2021-08-04] MEDS: MONTELUKAST NA 10 MG TABLET PO SCH (22:59)
[2021-08-05] MEDS: methylPREDNISolone NA SUCC 40 MG/1 ML VIAL IVPUSH SCH ×2 (02:38→09:53)
[2021-08-05 08:17] LABS: INR 2.83 (0.83-1.09); PROTHROMBIN TIME (PATIENT) 32.9 SEC (9.7-13.0)
[2021-08-05] MEDS: TAMSULOSIN HCL 0.4 MG CAP PO SCH (08:39)
[2021-08-05] MEDS: rOPINIRole HCL 1 MG TABLET (FP) PO SCH ×2 (09:52→21:31)
[2021-08-05] MEDS: FERROUS GLUCONATE 324 MG TAB (FP) PO SCH (09:53)
[2021-08-05] MEDS: PANTOPRAZOLE 40 MG TABLET PO SCH (09:53)
[2021-08-05] MEDS: metoPROLOL SUCCINATE 25 MG TAB.SR.24H (FP) PO SCH (09:53)
[2021-08-05] MEDS: BICALUTAMIDE 50 MG TABLET (FP) PO SCH (09:53)
[2021-08-05] MEDS: FUROSEMIDE 40 MG TABLET (FP) PO SCH (09:53)
[2021-08-05] MEDS: DONEPEZIL HCL 10 MG TABLET (FP) PO SCH (09:53)
[2021-08-05] MEDS: BUDESONIDE/FORMETEROL FUMARATE 80/4.5 mcg INHALER IH SCH ×2 (09:54→21:35)
[2021-08-05] MEDS: WARFARIN NA 5 MG TABLET PO SCH (17:09)
[2021-08-05] MEDS: ROSUVASTATIN CA 10 MG TABLET PO SCH (21:31)
[2021-08-05] MEDS: MONTELUKAST NA 10 MG TABLET PO SCH (21:31)
[2021-08-05] MEDS: INSULIN SLIDING SCALE (NOVOLOG) 1 VIAL SQ SCH (21:32)
[2021-08-06] MEDS: INSULIN SLIDING SCALE (NOVOLOG) 1 VIAL SQ SCH ×3 (06:10→17:19)
[2021-08-06 08:33] LABS: INR 3.25 (0.83-1.09); PROTHROMBIN TIME (PATIENT) 37.8 SEC (9.7-13.0)
[2021-08-06] MEDS: TAMSULOSIN HCL 0.4 MG CAP PO SCH (09:00)
[2021-08-06] MEDS ORDERED: methylPREDNISolone NA SUCC 40 MG/1 ML VIAL IVPUSH SCH (10:00)
[2021-08-06] MEDS: PANTOPRAZOLE 40 MG TABLET PO SCH (10:15)
[2021-08-06] MEDS: FERROUS GLUCONATE 324 MG TAB (FP) PO SCH (10:16)
[2021-08-06] MEDS: metoPROLOL SUCCINATE 25 MG TAB.SR.24H (FP) PO SCH (10:16)
[2021-08-06] MEDS: FUROSEMIDE 40 MG TABLET (FP) PO SCH (10:16)
[2021-08-06] MEDS: BICALUTAMIDE 50 MG TABLET (FP) PO SCH (10:17)
[2021-08-06] MEDS: DONEPEZIL HCL 10 MG TABLET (FP) PO SCH (10:18)
[2021-08-06] MEDS: rOPINIRole HCL 1 MG TABLET (FP) PO SCH (10:18)
[2021-08-06] MEDS: BUDESONIDE/FORMETEROL FUMARATE 80/4.5 mcg INHALER IH SCH (10:26)
[2021-08-06 15:52] VITALS: BP 122/67; PULSE 56; TEMP 98.4
== END 2021-08-06 17:54 | disposition home or self-care (01) ==
LOC: JER 18:30 → JERBED 23:32 → UNDOADMOB 23:32 → INTOOBSV 23:32 → J5S 08-04 03:12 → JERBED 08-04 03:12 → J5S 08-04 08:31
PROVIDERS: ADMIT Hospitalist; ATTEND Family Medicine
PROC: 3E0F7GC Introduction of Other Therapeutic Substance into Respiratory Tract, Via Natural or Artificial Opening (ICD-10-PCS; principal; 2021-08-04)
PROC: 3E033GC Introduction of Other Therapeutic Substance into Peripheral Vein, Percutaneous Approach (ICD-10-PCS; 2021-08-04)
DX: I13.0 Hypertensive heart and chronic kidney disease with heart failure and stage 1 through stage 4 chronic kidney disease, or unspecified chronic kidney disease (principal); Z86.718 Personal history of other venous thrombosis and embolism; E11.22 Type 2 diabetes mellitus with diabetic chronic kidney disease; J44.9 Chronic obstructive pulmonary disease, unspecified; I50.9 Heart failure, unspecified; I48.91 Unspecified atrial fibrillation; E78.5 Hyperlipidemia, unspecified; N40.0 Benign prostatic hyperplasia without lower urinary tract symptoms; Z98.49 Cataract extraction status, unspecified eye; Z87.891 Personal history of nicotine dependence; Z88.8 Allergy status to other drugs, medicaments and biological substances; Z88.1 Allergy status to other antibiotic agents; S90.111A Contusion of right great toe without damage to nail, initial encounter; W22.01XA Walked into wall, initial encounter; Y93.89 Activity, other specified; Y92.89 Other specified places as the place of occurrence of the external cause; C80.1 Malignant (primary) neoplasm, unspecified
CPT/HCPCS: 36415; 71046-TC-FY; 73660-TC-FY; 80048; 80053; 82962; 83735; 83880; 84484; 84550; 85025; 85610; 85651; 85730; 86140; 93005; 93010; 93925-TC; 94640; 96374; 96376; 99285-25; C9803-CS; G0378; U0003; U0005

== ENCOUNTER 2021-09-22 09:59 | Emergency (ER) | payer OTHER ==
[2021-09-22 10:16] VITALS: BP 134/67; PULSE 65; TEMP 98.5; BMI 33.2
[2021-09-22] MEDS ORDERED: TIZANIDINE HCL 4 MG TABLET PO ONE (10:44)
== END 2021-09-22 12:28 | disposition home or self-care (01) ==
LOC: JERFT 09:59
DX: M54.2 Cervicalgia (principal)
CPT/HCPCS: 99283-25

== ENCOUNTER 2021-10-28 14:54 | Emergency (ER) | payer OTHER ==
[2021-10-28 15:08] VITALS: TEMP 98.3; BMI 34.2
[2021-10-28 16:15] LABS: HEMATOCRIT 38.7 % (35.4-49); HEMOGLOBIN 13.2 G/dL (11.7-16.9); MCH 28.1 pg (25.7-33.7); MCHC 34.2 g/dl (32.0-35.9); MEAN CELL VOLUME 81.9 fl (80-96); MEAN PLT VOLUME 9.3 fl (7.5-11.1); PLATELET COUNT 257.4 10^3/uL (134-434); RBC 4.72 10^6/uL (4.00-5.60); RDW 17.1 % (11.9-15.9); WHITE BLOOD COUNT 11.5 10^3/uL (4.0-10.8)
[2021-10-28 16:19] LABS: INR 1.7 (0.83-1.09); PROTHROMBIN TIME (PATIENT) 19.7 SEC (9.7-13.0)
[2021-10-28 16:22] LABS: ACTIVATED PTT 36.3 SECONDS (25.2-36.5)
[2021-10-28 16:26] LABS: ALBUMIN 3.9 g/dl (3.4-5.0); BILIRUBIN,TOTAL 0.6 mg/dl (0.2-1); CALCIUM 10.1 mg/dl (8.5-10); CREATININE 1.3 mg/dl (0.55-1.3); TOT PROT 7.3 g/dl (6.4-8.2)
[2021-10-28 16:37] LABS: PLATELET ESTIMATE ADEQUATE
[2021-10-28] MEDS ORDERED: MAG HYDROX/AL HYDROX/SIMETH -MYLANTA- ORAL SUSPENSION PO ONE (16:45)
[2021-10-28] MEDS ORDERED: FAMOTIDINE 20 MG/50 ML IVPB 20 MG in PREMIX 50 IVPB ONE (16:45)
[2021-10-28] MEDS ORDERED: FAMOTIDINE 20 MG/50 ML IVPB 20 MG/50 ML MG IVPB ONE (16:54)
[2021-10-28] MEDS ORDERED: MAG HYDROX/AL HYDROX/SIMETH 30 ML UNIT-DOSE CUP ONE (16:55)
[2021-10-28 17:27] LABS: VENOUS BASE EXCESS 1.7 mmol/L (-2-2); VENOUS O2 SATURATION 43.6 % (70-80); VENOUS PCO2 61.4 mmHg (38-52); VENOUS PH 7.301 (7.310-7.410)
[2021-10-28 17:54] VITALS: BP 112/62; PULSE 61
== END 2021-10-28 20:07 | disposition home or self-care (01) ==
LOC: FER 14:54
PROC: 3E033GC Introduction of Other Therapeutic Substance into Peripheral Vein, Percutaneous Approach (ICD-10-PCS; principal; 2021-10-28)
DX: R06.02 Shortness of breath (principal)
CPT/HCPCS: 0241U-QW; 36415; 71045-TC-FY; 80053; 82550; 82553; 82803; 83690; 83880; 84484; 85027; 85610; 85730; 93005; 99285-25

== ENCOUNTER 2022-01-07 21:25 | Inpatient (IN) | payer OTHER ==
[2022-01-07 21:45] VITALS: BMI 33.2
[2022-01-07] MEDS ORDERED: CEFTRIAXONE 1 GM in DEXTROSE 5%-WATER - 50 ML IVPB ONE (22:49)
[2022-01-07] MEDS ORDERED: methylPREDNISolone NA SUCC 125 MG/2 ML VIAL IVPUSH ONE (22:49)
[2022-01-07] MEDS ORDERED: ALBUTEROL SO4 2.5/IPRATROPIUM 0.5 INH SOL 3 ML VIAL.NEB. NEB ONE (23:23)
[2022-01-07] MEDS: ALBUTEROL SO4 2.5/IPRATROPIUM 0.5 INH SOL 3 ML VIAL.NEB. NEB SCH ×2 (23:26→23:41)
[2022-01-07 23:50] LABS: VENOUS BASE EXCESS 1.9 mmol/L (-2-2); VENOUS O2 SATURATION 64.2 % (70-80); VENOUS PCO2 49.4 mmHg (38-52); VENOUS PH 7.371 (7.310-7.410)
[2022-01-07] MEDS ORDERED: methylPREDNISolone NA SUCC 125 MG/2 ML VIAL ONE (23:50)
[2022-01-07] MEDS ORDERED: CEFTRIAXONE 1 GM/50 ML BAG ONE (23:50)
[2022-01-08 00:01] LABS: BASO % 0.9 % (0-2.0); EOS % 0.8 % (0-4.5); HEMATOCRIT 39.9 % (35.4-49); LYMPH % 8.1 % (8-40); MCH 27.3 pg (25.7-33.7); MCHC 32.6 g/dl (32.0-35.9); MEAN CELL VOLUME 83.9 fl (80-96); MONO % 7.8 % (3.8-10.2); NEUT % 82.4 % (42.8-82.8); PLATELET COUNT 218 10^3/uL (134-434); RBC 4.75 M/mm3 (4.00-5.60); RDW 15.2 % (11.9-15.9); WHITE BLOOD COUNT 13.8 K/mm3 (4.0-10.0)
[2022-01-08 00:10] LABS: INR 1.9 (0.83-1.09)
[2022-01-08 00:13] LABS: ACTIVATED PTT 33.9 SECONDS (25.2-36.5)
[2022-01-08 00:17] LABS: ALBUMIN 3.2 g/dl (3.4-5.0); BLOOD UREA NITROGEN 17.1 mg/dL (7-18); CALCIUM 9.7 mg/dL (8.5-10.1)
[2022-01-08 00:20] LABS: CREATININE 1.3 mg/dL (0.55-1.3)
[2022-01-08 00:21] LABS: BILIRUBIN,TOTAL 0.8 mg/dL (0.2-1)
[2022-01-08] MEDS ORDERED: ACETAMINOPHEN 325 MG TABLET (FP) PO PRN (04:24)
[2022-01-08] MEDS ORDERED: ALBUTEROL SO4 HFA INHALER IH PRN ×2 (04:24→13:38)
[2022-01-08] MEDS ORDERED: BENZOCAINE/MENTH/CETYLPYRD CL 1 EACH LOZENGE MM PRN (04:24)
[2022-01-08] MEDS ORDERED: TRIMETHOBENZAMIDE HCL 200MG/2ML INJ IM PRN (04:24)
[2022-01-08] MEDS ORDERED: POLYETHYLENE GLYCOL (HEALTHYLAX) 3350 17 GM PACKET PO PRN (04:39)
[2022-01-08] MEDS ORDERED: TAMSULOSIN HCL 0.4 MG CAP ONE (08:16)
[2022-01-08] MEDS: INSULIN (NOVOLOG) ASPART 100 UNITS/ML 10ML VIAL SQ SCH ×4 (08:22→22:09)
[2022-01-08] MEDS: TAMSULOSIN HCL 0.4 MG CAP PO SCH (08:24)
[2022-01-08] MEDS ORDERED: DONEPEZIL HCL 5 MG TABLET (FP) ONE (09:33)
[2022-01-08] MEDS ORDERED: metoPROLOL SUCCINATE 25 MG TAB.SR.24H (FP) PO ONE (09:33)
[2022-01-08] MEDS ORDERED: PANTOPRAZOLE 40 MG TABLET PO ONE (09:33)
[2022-01-08] MEDS ORDERED: FUROSEMIDE 40 MG TABLET (FP) ONE (09:33)
[2022-01-08] MEDS ORDERED: methylPREDNISolone NA SUCC 40 MG/1 ML VIAL ONE (09:34)
[2022-01-08] MEDS: FERROUS GLUCONATE 324 MG TAB (FP) PO SCH (09:48)
[2022-01-08] MEDS: PANTOPRAZOLE 40 MG TABLET PO SCH (09:48)
[2022-01-08] MEDS: metoPROLOL SUCCINATE 25 MG TAB.SR.24H (FP) PO SCH (09:48)
[2022-01-08] MEDS: FUROSEMIDE 20 MG TABLET (FP) PO SCH (09:48)
[2022-01-08] MEDS: BICALUTAMIDE 50 MG TABLET (FP) PO SCH (09:48)
[2022-01-08] MEDS: rOPINIRole HCL 1 MG TABLET (FP) PO SCH (09:48)
[2022-01-08] MEDS ORDERED: DONEPEZIL HCL 10 MG TABLET (FP) PO SCH (10:00)
[2022-01-08] MEDS ORDERED: methylPREDNISolone NA SUCC 40 MG/1 ML VIAL IVPUSH SCH (10:00)
[2022-01-08] MEDS: BUDESONIDE/FORMETEROL FUMARATE 80/4.5 mcg INHALER IH SCH ×2 (11:33→22:15)
[2022-01-08] MEDS ORDERED: REMDESIVIR 200 MG in SODIUM CHLORIDE 250 ML IVPB ONE ×2 (11:58→14:00)
[2022-01-08] MEDS: ALBUTEROL SO4 2.5/IPRATROPIUM 0.5 INH SOL 3 ML VIAL.NEB. NEB SCH ×3 (16:16→20:00)
[2022-01-08] MEDS ORDERED: WARFARIN NA 5 MG TABLET ONE (17:29)
[2022-01-08] MEDS: WARFARIN NA 5 MG TABLET PO SCH (17:31)
[2022-01-08] MEDS ORDERED: CEFTRIAXONE 1 GM in DEXTROSE 5%-WATER - 50 ML IVPB SCH (22:00)
[2022-01-08] MEDS: MONTELUKAST NA 10 MG TABLET PO SCH (22:09)
[2022-01-08] MEDS: ROSUVASTATIN CA 10 MG TABLET PO SCH (22:09)
[2022-01-09] MEDS: INSULIN (NOVOLOG) ASPART 100 UNITS/ML 10ML VIAL SQ SCH ×3 (07:11→18:42)
[2022-01-09] MEDS: ALBUTEROL SO4 2.5/IPRATROPIUM 0.5 INH SOL 3 ML VIAL.NEB. NEB SCH ×4 (07:52→20:34)
[2022-01-09 08:57] LABS: BLOOD UREA NITROGEN 22.6 mg/dL (7-18)
[2022-01-09 08:58] LABS: CALCIUM 9.6 mg/dL (8.5-10.1)
[2022-01-09 09:01] LABS: CREATININE 0.9 mg/dL (0.55-1.3)
[2022-01-09] MEDS: TAMSULOSIN HCL 0.4 MG CAP PO SCH (09:20)
[2022-01-09] MEDS: metoPROLOL SUCCINATE 25 MG TAB.SR.24H (FP) PO SCH (09:38)
[2022-01-09] MEDS: BICALUTAMIDE 50 MG TABLET (FP) PO SCH (09:39)
[2022-01-09] MEDS: FERROUS GLUCONATE 324 MG TAB (FP) PO SCH (09:39)
[2022-01-09] MEDS: FUROSEMIDE 20 MG TABLET (FP) PO SCH (09:39)
[2022-01-09] MEDS: rOPINIRole HCL 1 MG TABLET (FP) PO SCH (09:39)
[2022-01-09] MEDS: PANTOPRAZOLE 40 MG TABLET PO SCH (09:39)
[2022-01-09] MEDS: DEXAMETHASONE SOD PHOSPHATE 10 MG/1 ML VIAL IVPUSH SCH (09:40)
[2022-01-09 11:15] LABS: INR 2.13 (0.83-1.09); PROTHROMBIN TIME (PATIENT) 24.7 SEC (9.7-13.0)
[2022-01-09] MEDS: BUDESONIDE/FORMETEROL FUMARATE 80/4.5 mcg INHALER IH SCH ×2 (11:40→22:45)
[2022-01-09] MEDS: REMDESIVIR 100 MG in SODIUM CHLORIDE 250 ML IVPB SCH (11:40)
[2022-01-09] MEDS: WARFARIN NA 5 MG TABLET PO SCH (17:29)
[2022-01-09] MEDS: INSULIN SLIDING SCALE (NOVOLOG) 1 VIAL SQ SCH ×2 (17:46→22:43)
[2022-01-09] MEDS: DONEPEZIL HCL 10 MG TABLET (FP) PO SCH (22:43)
[2022-01-09] MEDS: ROSUVASTATIN CA 10 MG TABLET PO SCH (22:43)
[2022-01-09] MEDS: MONTELUKAST NA 10 MG TABLET PO SCH (22:43)
[2022-01-10] MEDS: INSULIN SLIDING SCALE (NOVOLOG) 1 VIAL SQ SCH ×4 (06:32→21:09)
[2022-01-10] MEDS: ALBUTEROL SO4 2.5/IPRATROPIUM 0.5 INH SOL 3 ML VIAL.NEB. NEB SCH ×4 (07:52→19:40)
[2022-01-10] MEDS: rOPINIRole HCL 1 MG TABLET (FP) PO SCH (09:47)
[2022-01-10] MEDS: DEXAMETHASONE SOD PHOSPHATE 10 MG/1 ML VIAL IVPUSH SCH (09:47)
[2022-01-10] MEDS: REMDESIVIR 100 MG in SODIUM CHLORIDE 250 ML IVPB SCH (09:47)
[2022-01-10] MEDS: metoPROLOL SUCCINATE 25 MG TAB.SR.24H (FP) PO SCH (09:48)
[2022-01-10] MEDS: FUROSEMIDE 20 MG TABLET (FP) PO SCH (09:48)
[2022-01-10] MEDS: BICALUTAMIDE 50 MG TABLET (FP) PO SCH (09:48)
[2022-01-10] MEDS: FERROUS GLUCONATE 324 MG TAB (FP) PO SCH (09:48)
[2022-01-10] MEDS: TAMSULOSIN HCL 0.4 MG CAP PO SCH (09:48)
[2022-01-10] MEDS: PANTOPRAZOLE 40 MG TABLET PO SCH (09:48)
[2022-01-10] MEDS: BUDESONIDE/FORMETEROL FUMARATE 80/4.5 mcg INHALER IH SCH ×2 (09:51→21:10)
[2022-01-10 11:54] LABS: BASO % 0.4 % (0-2.0); EOS % 0.7 % (0-4.5); HEMATOCRIT 37.8 % (35.4-49); HEMOGLOBIN 12.7 GM/dL (11.7-16.9); LYMPH % 13.9 % (8-40); MCHC 33.5 g/dl (32.0-35.9); MEAN CELL VOLUME 83.7 fl (80-96); MEAN PLT VOLUME 8.6 fl (7.5-11.1); MONO % 6.3 % (3.8-10.2); NEUT % 78.7 % (42.8-82.8); PLATELET COUNT 230 10^3/uL (134-434); RBC 4.52 M/mm3 (4.00-5.60); RDW 14.9 % (11.9-15.9)
[2022-01-10 11:57] LABS: INR 2.12 (0.83-1.09); PROTHROMBIN TIME (PATIENT) 24.6 SEC (9.7-13.0)
[2022-01-10] MEDS: WARFARIN NA 5 MG TABLET PO SCH (17:06)
[2022-01-10] MEDS: LISINOPRIL 10 MG TABLET PO SCH (18:54)
[2022-01-10] MEDS: DONEPEZIL HCL 10 MG TABLET (FP) PO SCH (21:09)
[2022-01-10] MEDS: MONTELUKAST NA 10 MG TABLET PO SCH (21:09)
[2022-01-10] MEDS: ROSUVASTATIN CA 10 MG TABLET PO SCH (21:09)
[2022-01-11] MEDS: INSULIN (LEVEMIR) 100 UNITS/ML UNITS SQ SCH (07:10)
[2022-01-11] MEDS: INSULIN SLIDING SCALE (NOVOLOG) 1 VIAL SQ SCH ×4 (07:11→21:20)
[2022-01-11 08:10] LABS: HEMATOCRIT 37.8 % (35.4-49); HEMOGLOBIN 12.4 GM/dL (11.7-16.9); MCH 27.4 pg (25.7-33.7); MEAN CELL VOLUME 82.9 fl (80-96); MEAN PLT VOLUME 8.5 fl (7.5-11.1); PLATELET COUNT 253 10^3/uL (134-434); RBC 4.55 M/mm3 (4.00-5.60); RDW 14.8 % (11.9-15.9); WHITE BLOOD COUNT 10.1 K/mm3 (4.0-10.0)
[2022-01-11 08:14] LABS: INR 2.18 (0.83-1.09); PROTHROMBIN TIME (PATIENT) 25.3 SEC (9.7-13.0)
[2022-01-11 08:36] LABS: ALBUMIN 2.8 g/dl (3.4-5.0); CALCIUM 9.5 mg/dL (8.5-10.1); CREATININE 0.9 mg/dL (0.55-1.3)
[2022-01-11 08:37] LABS: BLOOD UREA NITROGEN 17.4 mg/dL (7-18)
[2022-01-11 08:38] LABS: TOT PROT 6.2 g/dl (6.4-8.2)
[2022-01-11 08:40] LABS: BILIRUBIN,TOTAL 0.3 mg/dL (0.2-1)
[2022-01-11] MEDS: ALBUTEROL SO4 2.5/IPRATROPIUM 0.5 INH SOL 3 ML VIAL.NEB. NEB SCH ×4 (08:57→20:13)
[2022-01-11] MEDS: REMDESIVIR 100 MG in SODIUM CHLORIDE 250 ML IVPB SCH (10:27)
[2022-01-11] MEDS: metoPROLOL SUCCINATE 25 MG TAB.SR.24H (FP) PO SCH (10:30)
[2022-01-11] MEDS: PANTOPRAZOLE 40 MG TABLET PO SCH (10:30)
[2022-01-11] MEDS: FUROSEMIDE 20 MG TABLET (FP) PO SCH (10:30)
[2022-01-11] MEDS: DEXAMETHASONE SOD PHOSPHATE 10 MG/1 ML VIAL IVPUSH SCH (10:30)
[2022-01-11] MEDS: FERROUS GLUCONATE 324 MG TAB (FP) PO SCH (10:30)
[2022-01-11] MEDS: LISINOPRIL 10 MG TABLET PO SCH (10:30)
[2022-01-11] MEDS: rOPINIRole HCL 1 MG TABLET (FP) PO SCH (10:30)
[2022-01-11] MEDS: TAMSULOSIN HCL 0.4 MG CAP PO SCH (10:30)
[2022-01-11] MEDS: BICALUTAMIDE 50 MG TABLET (FP) PO SCH (10:31)
[2022-01-11] MEDS: BUDESONIDE/FORMETEROL FUMARATE 80/4.5 mcg INHALER IH SCH ×2 (10:31→21:20)
[2022-01-11] MEDS: WARFARIN NA 5 MG TABLET PO SCH (17:16)
[2022-01-11] MEDS: DONEPEZIL HCL 10 MG TABLET (FP) PO SCH (21:19)
[2022-01-11] MEDS: ROSUVASTATIN CA 10 MG TABLET PO SCH (21:19)
[2022-01-11] MEDS: MONTELUKAST NA 10 MG TABLET PO SCH (21:19)
[2022-01-12] MEDS: INSULIN (LEVEMIR) 100 UNITS/ML UNITS SQ SCH (06:07)
[2022-01-12] MEDS: INSULIN SLIDING SCALE (NOVOLOG) 1 VIAL SQ SCH ×3 (06:08→17:10)
[2022-01-12] MEDS: ALBUTEROL SO4 2.5/IPRATROPIUM 0.5 INH SOL 3 ML VIAL.NEB. NEB SCH ×3 (08:44→16:02)
[2022-01-12 09:25] LABS: HEMATOCRIT 38.4 % (35.4-49); HEMOGLOBIN 12.6 GM/dL (11.7-16.9); MCH 27.2 pg (25.7-33.7); MCHC 32.7 g/dl (32.0-35.9); MEAN CELL VOLUME 83.1 fl (80-96); MEAN PLT VOLUME 8.9 fl (7.5-11.1); PLATELET COUNT 277 10^3/uL (134-434); RBC 4.63 M/mm3 (4.00-5.60); RDW 14.8 % (11.9-15.9)
[2022-01-12 09:46] LABS: CALCIUM 9.8 mg/dL (8.5-10.1)
[2022-01-12] MEDS: TAMSULOSIN HCL 0.4 MG CAP PO SCH (09:46)
[2022-01-12] MEDS: LISINOPRIL 10 MG TABLET PO SCH (09:46)
[2022-01-12] MEDS: metoPROLOL SUCCINATE 25 MG TAB.SR.24H (FP) PO SCH (09:46)
[2022-01-12] MEDS: PANTOPRAZOLE 40 MG TABLET PO SCH (09:46)
[2022-01-12] MEDS: FERROUS GLUCONATE 324 MG TAB (FP) PO SCH (09:46)
[2022-01-12] MEDS: FUROSEMIDE 20 MG TABLET (FP) PO SCH (09:46)
[2022-01-12 09:47] LABS: ALBUMIN 2.8 g/dl (3.4-5.0); BLOOD UREA NITROGEN 19.6 mg/dL (7-18); MAGNESIUM 1.8 mg/dL (1.8-2.4)
[2022-01-12] MEDS: DEXAMETHASONE SOD PHOSPHATE 10 MG/1 ML VIAL IVPUSH SCH (09:47)
[2022-01-12] MEDS: rOPINIRole HCL 1 MG TABLET (FP) PO SCH (09:47)
[2022-01-12] MEDS: BICALUTAMIDE 50 MG TABLET (FP) PO SCH (09:47)
[2022-01-12] MEDS: REMDESIVIR 100 MG in SODIUM CHLORIDE 250 ML IVPB SCH (09:48)
[2022-01-12 09:51] LABS: BILIRUBIN,TOTAL 0.3 mg/dL (0.2-1); TOT PROT 6.4 g/dl (6.4-8.2)
[2022-01-12] MEDS: BUDESONIDE/FORMETEROL FUMARATE 80/4.5 mcg INHALER IH SCH (09:55)
[2022-01-12 09:58] VITALS: RESP 18
[2022-01-12 13:27] LABS: INR 2.4 (0.83-1.09); PROTHROMBIN TIME (PATIENT) 27.8 SEC (9.7-13.0)
[2022-01-12 14:00] VITALS: BP 105/56; PULSE 57; TEMP 97.5
[2022-01-12] MEDS: WARFARIN NA 5 MG TABLET PO SCH (17:11)
== END 2022-01-12 18:30 | disposition home or self-care (01) | DRG 178 ==
LOC: JER 21:25 → JERBED 23:16 → J7W 01-08 20:57
PROVIDERS: ADMIT Internal Medicine; ATTEND Internal Medicine
PROC: XW033E5 Introduction of Remdesivir Anti-infective into Peripheral Vein, Percutaneous Approach, New Technology Group 5 (ICD-10-PCS; principal; 2022-01-08)
PROC: 3E0333Z Introduction of Anti-inflammatory into Peripheral Vein, Percutaneous Approach (ICD-10-PCS; 2022-01-09)
DX: U07.1 COVID-19 (principal); J44.1 Chronic obstructive pulmonary disease with (acute) exacerbation; J96.11 Chronic respiratory failure with hypoxia; I48.91 Unspecified atrial fibrillation; E11.9 Type 2 diabetes mellitus without complications; E78.5 Hyperlipidemia, unspecified; H10.9 Unspecified conjunctivitis; I11.0 Hypertensive heart disease with heart failure; I50.9 Heart failure, unspecified; Z99.81 Dependence on supplemental oxygen; Z85.46 Personal history of malignant neoplasm of prostate
CPT/HCPCS: 0241U-QW; 36415; 70450-TC; 70481-TC; 71045-TC-FY; 80048; 80053; 82728; 82803; 82962; 83615; 83735; 84484; 85025; 85027; 85610; 85730; 86140; 87651; 93005; 93010; 99291; 99292; C9399; J1100; Q9967

== ENCOUNTER 2022-03-29 12:14 | Emergency (ER) | payer OTHER ==
[2022-03-29 12:51] VITALS: BP 104/51; PULSE 58; RESP 18; TEMP 98; BMI 31.4
[2022-03-29] MEDS ORDERED: ACETAMINOPHEN 500 MG TABLET (FP) PO ONE (14:28)
[2022-03-29] MEDS ORDERED: ACETAMINOPHEN 500 MG TABLET (FP) ONE (14:30)
== END 2022-03-29 15:36 | disposition home or self-care (01) ==
LOC: JERFT 12:14
DX: S03.40XA Sprain of jaw, unspecified side, initial encounter (principal); X50.0XXA Overexertion from strenuous movement or load, initial encounter
CPT/HCPCS: 99283-25

== ENCOUNTER 2022-03-30 17:03 | Emergency (ER) | payer OTHER ==
[2022-03-30 17:18] VITALS: BP 119/70; PULSE 67; RESP 16; TEMP 98.5; BMI 32.8
== END 2022-03-30 23:19 | disposition home or self-care (01) ==
LOC: JER 17:03
DX: R68.84 Jaw pain (principal)
CPT/HCPCS: 70486-TC; 99284-25

== ENCOUNTER 2022-09-20 23:35 | Emergency (ER) | payer OTHER ==
[2022-09-20 23:50] VITALS: BP 102/60; PULSE 56; RESP 17; TEMP 98.2; BMI 31.2
[2022-09-21] MEDS ORDERED: ACETAMINOPHEN 500 MG TABLET (FP) PO ONE (02:01)
[2022-09-21] MEDS ORDERED: ACETAMINOPHEN 325 MG TABLET (FP) ONE (02:07)
[2022-09-21 02:18] LABS: BASO % 0.5 % (0-2.0); EOS % 3.5 % (0-4.5); HEMATOCRIT 33.9 % (35.4-49); HEMOGLOBIN 11.5 GM/dL (11.7-16.9); MCH 28.1 pg (25.7-33.7); MCHC 33.8 g/dl (32.0-35.9); MEAN CELL VOLUME 83.3 fl (80-96); MEAN PLT VOLUME 7.9 fl (7.5-11.1); MONO % 6.4 % (3.8-10.2); NEUT % 72.6 % (42.8-82.8); PLATELET COUNT 311 10^3/uL (134-434); RBC 4.07 M/mm3 (4.00-5.60); RDW 14.2 % (11.9-15.9); WHITE BLOOD COUNT 13.1 K/mm3 (4.0-10.0)
[2022-09-21 02:26] LABS: INR 1.79 (0.83-1.09); PROTHROMBIN TIME (PATIENT) 20.7 SEC (9.7-13.0)
[2022-09-21 02:29] LABS: ACTIVATED PTT 35.2 SECONDS (25.2-36.5)
[2022-09-21 02:48] LABS: CALCIUM 9.5 mg/dL (8.5-10.1)
[2022-09-21 02:51] LABS: CREATININE 1.1 mg/dL (0.55-1.3)
[2022-09-21 02:53] LABS: BILIRUBIN,TOTAL 0.6 mg/dL (0.2-1); TOT PROT 7.2 g/dl (6.4-8.2)
== END 2022-09-21 04:14 | disposition home or self-care (01) ==
LOC: JER 23:35
DX: M79.672 Pain in left foot (principal); M25.552 Pain in left hip; R07.82 Intercostal pain; W06.XXXA Fall from bed, initial encounter
CPT/HCPCS: 36415; 70450-TC; 71250-TC; 72125-TC; 73070-TC-LT-FY; 73090-TC-LT-FY; 73110-TC-LT-FY; 73130-TC-LT-FY; 73610-TC-LT-FY; 73630-TC-LT; 80053; 85025; 85610; 85730; 93005; 93010; 99285-25

== ENCOUNTER 2023-03-16 16:03 | Emergency (ER) | payer OTHER ==
[2023-03-16 16:49] VITALS: BP 141/52; PULSE 62; RESP 18; TEMP 97.9; BMI 32.7
[2023-03-16] MEDS ORDERED: ACETAMINOPHEN 500 MG TABLET (FP) PO ONE (17:03)
[2023-03-16] MEDS ORDERED: BACITRACIN 0.9 GM PACKET TP ONE (17:17)
[2023-03-16] MEDS ORDERED: BACITRACIN ZINC 15 GM TUBE TOPICAL OINTMENT ONE (17:21)
[2023-03-16] MEDS ORDERED: DIPHTH,PERTUSS(ACELL),TET 0.5 ML DISP.SYRIN IM ONE ×2 (17:42→18:40)
[2023-03-16] MEDS ORDERED: ACETAMINOPHEN 500 MG TABLET (FP) ONE (18:40)
== END 2023-03-16 19:23 | disposition home or self-care (01) ==
LOC: JER 16:03
PROC: 3E0234Z Introduction of Serum, Toxoid and Vaccine into Muscle, Percutaneous Approach (ICD-10-PCS; principal; 2023-03-16)
DX: S00.81XA Abrasion of other part of head, initial encounter (principal); R33.9 Retention of urine, unspecified; R10.9 Unspecified abdominal pain; R51.9 Headache, unspecified; W19.XXXA Unspecified fall, initial encounter; W22.8XXA Striking against or struck by other objects, initial encounter; Y93.01 Activity, walking, marching and hiking
CPT/HCPCS: 70450-TC; 90471; 90715; 99284-25

== ENCOUNTER 2023-03-20 13:16 | Inpatient (IN) | payer OTHER ==
[2023-03-20] MEDS ORDERED: METHOCARBAMOL 500 MG TABLET PO ONE (14:17)
[2023-03-20] MEDS ORDERED: ACETAMINOPHEN 500 MG TABLET (FP) PO ONE (14:18)
[2023-03-20] MEDS ORDERED: LIDOCAINE 4% PATCH TP ONE ×2 (14:18→15:07)
[2023-03-20] MEDS ORDERED: ACETAMINOPHEN 325 MG TABLET (FP) ONE (15:06)
[2023-03-20] MEDS ORDERED: METHOCARBAMOL 500 MG TABLET ONE (15:06)
[2023-03-20] MEDS ORDERED: morphine CARPU-JECT 2 MG/1 ML DISP.SYRIN IM ONE (16:39)
[2023-03-20] MEDS ORDERED: morphine SULFATE 4 MG/ML VIAL ONE (16:39)
[2023-03-20] MEDS: morphine SULFATE 4 MG/ML VIAL IVPUSH ONE ×2 (16:48→16:51)
[2023-03-20 16:54] LABS: BASO % 0.3 % (0-2.0); EOS % 6.7 % (0-4.5); HEMOGLOBIN 11.4 GM/dL (11.7-16.9); LYMPH % 15.3 % (8-40); MCH 28.4 pg (25.7-33.7); MCHC 33.6 g/dl (32.0-35.9); MEAN CELL VOLUME 84.3 fl (80-96); MEAN PLT VOLUME 7.7 fl (7.5-11.1); MONO % 12.1 % (3.8-10.2); NEUT % 65.6 % (42.8-82.8); PLATELET COUNT 312 10^3/uL (134-434); RBC 4.03 M/mm3 (4.00-5.60); RDW 13.2 % (11.9-15.9); WHITE BLOOD COUNT 15.5 K/mm3 (4.0-10.0)
[2023-03-20 17:26] LABS: ALBUMIN 2.9 g/dl (3.4-5.0); BLOOD UREA NITROGEN 20.9 mg/dL (7-18); CALCIUM 9.6 mg/dL (8.5-10.1); CREATININE 1.2 mg/dL (0.55-1.3); POTASSIUM 3.2 mmol/L (3.5-5.1); TOT PROT 7.2 g/dl (6.4-8.2)
[2023-03-20] MEDS ORDERED: POTASSIUM CHLORIDE ORAL LIQUID 20 MEQ/15 ML PO ONE (18:27)
[2023-03-20] MEDS ORDERED: POTASSIUM CHLORIDE ORAL LIQUID 20 MEQ/15 ML ONE (18:38)
[2023-03-20] MEDS ORDERED: LIDOCAINE PATCH REMOVAL MC SCH (22:00)
[2023-03-20] MEDS ORDERED: ACETAMINOPHEN 1000 MG/100 ML BAG IVPB ONE (23:07)
[2023-03-20] MEDS ORDERED: ALBUTEROL SO4 HFA INHALER IH PRN (23:46)
[2023-03-21] MEDS ORDERED: APIXABAN 5 MG TABLET ONE (00:09)
[2023-03-21] MEDS ORDERED: ACETAMINOPHEN INJECTION 100 ML IVPB ONE (00:10)
[2023-03-21] MEDS: APIXABAN 5 MG TABLET PO SCH ×3 (00:22→21:23)
[2023-03-21] MEDS ORDERED: LIDOCAINE PATCH REMOVAL MC ONE (03:00)
[2023-03-21 03:59] LABS: EPI CELLS 1 /uL (0-25.1); HYALINE CASTS 0 /uL (0-3.1); PH,URINE 5.5 (5.0-8.0); URINE APPEARANCE CLOUDY; URINE BACTERIA 2377 /uL (0-1359); URINE BILIRUBIN 1+ (NEGATIVE); URINE COLOR DK YELLOW; URINE GLUCOSE (UA) NEGATIVE (NEGATIVE); URINE KETONE TRACE (NEGATIVE); URINE LEUK ESTERASE 3+ (NEGATIVE); URINE NITRITE NEGATIVE (NEGATIVE); URINE PROTEIN 1+ (NEGATIVE); URINE WBC 2281 /uL (0-25.8)
[2023-03-21] MEDS ORDERED: CEFTRIAXONE 1 GM in DEXTROSE 5%-WATER - 50 ML IVPB ONE (05:30)
[2023-03-21 05:37] LABS: URINE RBC 163.3 /uL (0-23.9)
[2023-03-21] MEDS ORDERED: CEFTRIAXONE 1 GM/50 ML BAG ONE ×2 (06:23→09:35)
[2023-03-21 08:26] LABS: HEMATOCRIT 34.7 % (35.4-49); HEMOGLOBIN 11.6 GM/dL (11.7-16.9); MCH 28.9 pg (25.7-33.7); MCHC 33.5 g/dl (32.0-35.9); MEAN CELL VOLUME 86.1 fl (80-96); MEAN PLT VOLUME 8.3 fl (7.5-11.1); PLATELET COUNT 293 10^3/uL (134-434); RBC 4.03 M/mm3 (4.00-5.60); RDW 13.6 % (11.9-15.9); WHITE BLOOD COUNT 14.5 K/mm3 (4.0-10.0)
[2023-03-21 08:51] LABS: POTASSIUM 3.5 mmol/L (3.5-5.1)
[2023-03-21 09:06] LABS: CALCIUM 9.8 mg/dL (8.5-10.1)
[2023-03-21 09:07] LABS: BLOOD UREA NITROGEN 21.4 mg/dL (7-18)
[2023-03-21 09:10] LABS: CREATININE 1.2 mg/dL (0.55-1.3)
[2023-03-21] MEDS: metoPROLOL SUCCINATE 25 MG TAB.SR.24H (FP) PO SCH (10:08)
[2023-03-21] MEDS: CEFTRIAXONE 1 GM in DEXTROSE 5%-WATER - 50 ML IVPB SCH (10:08)
[2023-03-21] MEDS: FUROSEMIDE 40 MG TABLET (FP) PO SCH (10:08)
[2023-03-21] MEDS: BUDESONIDE/FORMETEROL FUMARATE 80/4.5 mcg INHALER IH SCH ×2 (12:06→23:45)
[2023-03-21] MEDS ORDERED: POTASSIUM CHLORIDE ORAL LIQUID 20 MEQ/15 ML PO ONE (15:50)
[2023-03-21 16:59] VITALS: RESP 18; BMI 29.9
[2023-03-21] MEDS: MONTELUKAST NA 10 MG TABLET PO SCH (21:23)
[2023-03-22 09:01] LABS: BASO % 0.6 % (0-2.0); EOS % 7.2 % (0-4.5); HEMATOCRIT 33.2 % (35.4-49); HEMOGLOBIN 10.8 GM/dL (11.7-16.9); LYMPH % 16.7 % (8-40); MCH 28.2 pg (25.7-33.7); MCHC 32.6 g/dl (32.0-35.9); MEAN CELL VOLUME 86.2 fl (80-96); MEAN PLT VOLUME 8.5 fl (7.5-11.1); MONO % 10.1 % (3.8-10.2); NEUT % 65.4 % (42.8-82.8); PLATELET COUNT 357 10^3/uL (134-434); RBC 3.85 M/mm3 (4.00-5.60); RDW 13.3 % (11.9-15.9); WHITE BLOOD COUNT 13.3 K/mm3 (4.0-10.0)
[2023-03-22] MEDS: CEFTRIAXONE 1 GM in DEXTROSE 5%-WATER - 50 ML IVPB SCH (09:15)
[2023-03-22] MEDS: metoPROLOL SUCCINATE 25 MG TAB.SR.24H (FP) PO SCH (09:15)
[2023-03-22] MEDS: APIXABAN 5 MG TABLET PO SCH ×2 (09:16→22:08)
[2023-03-22] MEDS: FUROSEMIDE 40 MG TABLET (FP) PO SCH (09:16)
[2023-03-22 09:23] LABS: POTASSIUM 3.5 mmol/L (3.5-5.1)
[2023-03-22 09:26] LABS: CALCIUM 10.1 mg/dL (8.5-10.1)
[2023-03-22 09:27] LABS: ALBUMIN 2.9 g/dl (3.4-5.0); BLOOD UREA NITROGEN 22.9 mg/dL (7-18); MAGNESIUM 1.8 mg/dL (1.8-2.4)
[2023-03-22 09:30] LABS: CREATININE 1.1 mg/dL (0.55-1.3)
[2023-03-22 09:32] LABS: BILIRUBIN,TOTAL 0.9 mg/dL (0.2-1); TOT PROT 7.3 g/dl (6.4-8.2)
[2023-03-22] MEDS: BUDESONIDE/FORMETEROL FUMARATE 80/4.5 mcg INHALER IH SCH ×2 (10:09→22:08)
[2023-03-22] MEDS: MONTELUKAST NA 10 MG TABLET PO SCH (22:08)
[2023-03-23] MEDS: FUROSEMIDE 40 MG TABLET (FP) PO SCH (10:07)
[2023-03-23] MEDS: APIXABAN 5 MG TABLET PO SCH ×2 (10:07→21:39)
[2023-03-23] MEDS: metoPROLOL SUCCINATE 25 MG TAB.SR.24H (FP) PO SCH (10:07)
[2023-03-23] MEDS: BUDESONIDE/FORMETEROL FUMARATE 80/4.5 mcg INHALER IH SCH ×2 (10:08→21:39)
[2023-03-23] MEDS: NITROFURANTOIN MONOHYD/M-CRYST 100 MG CAPSULE PO SCH ×2 (11:08→21:39)
[2023-03-23] MEDS: METHYL SALICYLATE/MENTHOL OINT 30 GM TUBE TP SCH ×2 (11:08→21:39)
[2023-03-23] MEDS: MONTELUKAST NA 10 MG TABLET PO SCH (21:39)
[2023-03-24] MEDS ORDERED: traMADol HCL 50 MG TABLET PO PRN (07:49)
[2023-03-24] MEDS ORDERED: ACETAMINOPHEN 325 MG TABLET (FP) PO PRN (07:49)
[2023-03-24] MEDS ORDERED: ARTIFICIAL TEARS (POLYVINYL ALCOHOL) OPTH DROPS OU PRN (09:24)
[2023-03-24] MEDS: metoPROLOL SUCCINATE 25 MG TAB.SR.24H (FP) PO SCH (10:02)
[2023-03-24] MEDS: FUROSEMIDE 40 MG TABLET (FP) PO SCH (10:02)
[2023-03-24] MEDS: APIXABAN 5 MG TABLET PO SCH ×2 (10:03→21:32)
[2023-03-24] MEDS: NITROFURANTOIN MONOHYD/M-CRYST 100 MG CAPSULE PO SCH ×2 (10:03→21:32)
[2023-03-24] MEDS: METHYL SALICYLATE/MENTHOL OINT 30 GM TUBE TP SCH ×2 (10:03→21:33)
[2023-03-24] MEDS: BUDESONIDE/FORMETEROL FUMARATE 80/4.5 mcg INHALER IH SCH ×2 (10:04→21:33)
[2023-03-24] MEDS: MONTELUKAST NA 10 MG TABLET PO SCH (21:32)
[2023-03-25 06:55] VITALS: BP 126/62; PULSE 84; TEMP 98.7
[2023-03-25] MEDS: APIXABAN 5 MG TABLET PO SCH (10:15)
[2023-03-25] MEDS: NITROFURANTOIN MONOHYD/M-CRYST 100 MG CAPSULE PO SCH (10:15)
[2023-03-25] MEDS: metoPROLOL SUCCINATE 25 MG TAB.SR.24H (FP) PO SCH (10:15)
[2023-03-25] MEDS: METHYL SALICYLATE/MENTHOL OINT 30 GM TUBE TP SCH (10:15)
[2023-03-25] MEDS: FUROSEMIDE 40 MG TABLET (FP) PO SCH (10:15)
[2023-03-25] MEDS: BUDESONIDE/FORMETEROL FUMARATE 80/4.5 mcg INHALER IH SCH (10:16)
== END 2023-03-25 12:30 | DRG 552 ==
LOC: JER 13:16 → JERBED 20:19 → J6S 03-21 16:02
PROVIDERS: ADMIT Internal Medicine; ATTEND Family Medicine
DX: M54.50 Low back pain, unspecified (principal); N39.0 Urinary tract infection, site not specified; I13.0 Hypertensive heart and chronic kidney disease with heart failure and stage 1 through stage 4 chronic kidney disease, or unspecified chronic kidney disease; E87.6 Hypokalemia; M25.512 Pain in left shoulder; J44.9 Chronic obstructive pulmonary disease, unspecified; I48.91 Unspecified atrial fibrillation; E78.5 Hyperlipidemia, unspecified; E11.9 Type 2 diabetes mellitus without complications; C61 Malignant neoplasm of prostate; M25.511 Pain in right shoulder; D72.829 Elevated white blood cell count, unspecified; N18.9 Chronic kidney disease, unspecified; I50.9 Heart failure, unspecified; K21.9 Gastro-esophageal reflux disease without esophagitis
CPT/HCPCS: 0241U-QW; 36415; 70551-TC; 71045-TC-FY; 72131-TC; 72194-TC; 73030-TC-LT-FY; 73030-TC-RT-FY; 73130-TC-LT-FY; 73502-TC-LT-FY; 73552-TC-LT-FY; 73562-TC-LT-FY; 80048; 80053; 81003; 82962; 83735; 85025; 85027; 87040; 87081; 87086; 87186; 97116-GP; 97161-GP; 99285-25

== ENCOUNTER 2023-04-20 06:30 | Emergency (ER) | payer OTHER ==
[2023-04-20 06:37] VITALS: RESP 18; BMI 32.1
[2023-04-20] MEDS ORDERED: ACETAMINOPHEN 325 MG TABLET (FP) PO ONE (07:41)
[2023-04-20] MEDS ORDERED: ACETAMINOPHEN 325 MG TABLET (FP) ONE (07:45)
[2023-04-20] MEDS ORDERED: LACTATED RINGERS SOLUTION 1,000 ML/1,000 ML INFUS.BAG IV STA (09:43)
[2023-04-20 12:18] LABS: BASO % 0.7 % (0-2.0); EOS % 5.7 % (0-4.5); HEMATOCRIT 33.8 % (35.4-49); HEMOGLOBIN 11.1 GM/dL (11.7-16.9); LYMPH % 15.5 % (8-40); MCH 28.6 pg (25.7-33.7); MCHC 32.9 g/dl (32.0-35.9); MEAN CELL VOLUME 86.9 fl (80-96); MEAN PLT VOLUME 8.6 fl (7.5-11.1); NEUT % 68.1 % (42.8-82.8); PLATELET COUNT 322 10^3/uL (134-434); RBC 3.89 M/mm3 (4.00-5.60); RDW 13.7 % (11.9-15.9); WHITE BLOOD COUNT 12.1 K/mm3 (4.0-10.0)
[2023-04-20 12:21] LABS: INR 1.8 (0.83-1.09); PROTHROMBIN TIME (PATIENT) 20.8 SEC (9.7-13.0)
[2023-04-20 12:23] LABS: ACTIVATED PTT 34.1 SECONDS (25.2-36.5)
[2023-04-20 12:42] LABS: ALBUMIN 2.7 g/dl (3.4-5.0); BLOOD UREA NITROGEN 15.6 mg/dL (7-18); CALCIUM 10.2 mg/dL (8.5-10.1)
[2023-04-20 12:46] LABS: CREATININE 0.9 mg/dL (0.55-1.3)
[2023-04-20 12:47] LABS: BILIRUBIN,TOTAL 0.8 mg/dL (0.2-1); TOT PROT 7.4 g/dl (6.4-8.2)
[2023-04-20 18:59] VITALS: BP 110/63; PULSE 98; TEMP 98.8
[2023-04-23 16:08] LABS: FREE KAPPA,SERUM 96.3 mg/L (3.3-19.4)
== END 2023-04-20 19:39 | disposition short-term general hospital (02) ==
LOC: JER 06:30
PROC: 3E0337Z Introduction of Electrolytic and Water Balance Substance into Peripheral Vein, Percutaneous Approach (ICD-10-PCS; principal; 2023-04-20)
DX: M25.552 Pain in left hip (principal); M25.561 Pain in right knee; M25.562 Pain in left knee; S72.002A Fracture of unspecified part of neck of left femur, initial encounter for closed fracture; W01.198A Fall on same level from slipping, tripping and stumbling with subsequent striking against other object, initial encounter; Y93.01 Activity, walking, marching and hiking; Z20.822 Contact with and (suspected) exposure to COVID-19
CPT/HCPCS: 0241U-QW; 36415; 70450-TC; 71045-TC-FY; 72125-TC; 72192-TC; 73502-TC-LT-FY; 73562-TC-LT-FY; 73562-TC-RT-FY; 80053; 82310; 82962; 83883; 83970; 84155; 84165; 85025; 85610; 85730; 86850; 86900; 86901; 93005; 93010; 99285-25